=== PATIENT | female | born 1950 | race Caucasian/White ===

== ENCOUNTER 2018-01-09 16:00 | Emergency (ER) | payer MEDICARE, SELFPAY ==
[2018-01-09 16:01] VITALS: BP 135/74; PULSE 85; RESP 16; TEMP 36.6; O2SAT 97; BMI 34.1
--- NOTE | 2018-01-09 16:14 | EKG12_ITS ---
Test Reason : DIZZNESS Blood Pressure : / mmHG Vent. Rate : 076 BPM Atrial Rate : 076 BPM P-R Int : 166 ms QRS Dur : 074 ms QT Int : 388 ms P-R-T Axes : 032 000 009 degrees QTc Int : 436 ms Normal sinus rhythm Inferior infarct , age undetermined , cannot be excluded Abnormal ECG Confirmed by BASIL DUBOSE, JARED ([id number]), design editor PAIGE QUINTANA ([id number] on 01/11/2018 1:35:19 PM Referred By: SILAS Confirmed By:JARED GRACIA MD
[2018-01-09] MEDS: Ondansetron 4 MG/2 ML Vial IV (16:40)
[2018-01-09] MEDS: diazePAM 5 MG Tablet 2.5 MG PO (16:40)
[2018-01-09 16:44] LABS: Absolute Lymphocyte Count 1.07 X10^3/ul (0.83-4.51); Basophil# 0.09 X10^3/uL; Basophil% 0.8 % (0-1); Eosinophil# 0.11 X10^3/uL; Hematocrit 40.9 % (37-47); Hemoglobin 13.9 g/dl (12.0-15.0); Lymphocyte # 1.07 X10^3/ul (4.0); Lymphocyte % 10.1 % (19-41); Mean Corpuscular Hgb 31.2 pg (27.0-32.0); Mean Corpuscular Volume 91.9 fL (81-99); Mean Platelet Vol. 10.9 fl (6.2-12.0); Monocyte# 0.35 X10^3/uL; Monocyte% 3.3 % (0-10); Neutrophil # 8.97 X10^3/uL (2.7-7.7); Neutrophil % 84.5 % (47-70); POSITIVE COUNT NO; POSITIVE DIFFERENTIAL NO; POSITIVE MORPHOLOGY NO; Platelet Count 398 K/mm3 (150-450); RBC Distribution Width CV 12.8 % (11.6-14.6); RBC Distribution Width SD 42.5 fl (35.1-43.9); Red Blood Count 4.45 M/mm3 (4.2-5.4); White Blood Count 10.6 K/mm3 (4.4-11.0)
[2018-01-09 16:56] LABS: Anion Gap 5 (5-15); BUN 25 mg/dL (7-18); Calcium,Total 9.1 mg/dL (8.5-10.1); Chloride 104 mmol/L (98-107); Creatinine, Serum 1.19 mg/dL (0.55-1.02); EST Glomerular Filtration Rate 48 mL/min (>60); Est Glom Filt Rate - Afr Amer 58 mL/min (>60); Estimated Creatinine Clearance 38.53 ml/min; Glucose 112 mg/dL (74-106); Potassium 4.3 mmol/L (3.5-5.1); Sodium Level 138 mmol/L (136-145)
--- NOTE | 2018-01-09 17:36 | ED.VISSUMM ---
- ER Visit Summary Date of Service: 01/09/18 Chief Complaint: Dizzy, vomiting History of Present Illness: The patient is a 67 F who states she woke this morning and had dizziness while still lying in bed. Symptoms were worse with turning her head to the left. She denies headache or palpitations. She has had some nausea with mild vomiting this afternoon. Physical Examination: Vital signs unremarkable. Patient sitting upright in bed no acute distress. Head neck examination unremarkable. Heart is regular rate and rhythm. Lung sounds are clear. Abdomen is soft nontender. Neuro exam reveals good strength and sensation throughout. Test Results: EKG is sinus at [address] change. CBC is unremarkable. Chemistry studies reveal BUN 25 and creatinine 1.19, slightly above her normal. Emergency Department Course and Treatment: Patient given IV fluids, Zofran, and p.o. Valium. On repeat evaluation she is significantly improved. I believe patient's symptoms are secondary to benign positional vertigo. She will be given prescriptions for Zofran and Valium. She will also be given a handout on how to do Kavita maneuvers. Treatment Plan: [] Disposition: Discharge Impression: BPV, improved This note was generated with [employer] dictation software. It may contain incorrect words, spelling, and punctuation that were not noted in review of the chart prior to signing ED Disposition - Plan for ED Patient: Chief Complaint: Dizziness Referrals: Bo Nicholas MD [Primary Care Provider] -
--- NOTE | 2018-01-09 17:37 | ED.DEP ---
ED Disposition - Plan for ED Patient: Disposition: Home or Assisted Living Chief Complaint: Dizziness Instructions: ED BPV Vertigo Prescriptions: Ondansetron [Zofran Odt] 4 mg PO Q8H PRN PRN #10 tablet PRN Reason: Nausea Diazepam [Valium] 2 mg PO TID PRN PRN #10 tablet PRN Reason: Vertigo Referrals: Bo Nicholas MD [Primary Care Provider] - 3-5 Days if not improving
[2018-01-09 17:51] VITALS: BP 137/66; PULSE 81; RESP 16; O2SAT 98
== END 2018-01-09 17:52 | disposition home or self-care (01) ==
PROVIDERS: Emergency Provider Emergency Medicine; Family Provider Family Medicine; PCP Family Medicine
DX: H81.12 Benign paroxysmal vertigo, left ear (principal); K21.9 Gastro-esophageal reflux disease without esophagitis; I10 Essential (primary) hypertension; F32.9 Major depressive disorder, single episode, unspecified; Z85.3 Personal history of malignant neoplasm of breast; Z79.899 Other long term (current) drug therapy
CPT/HCPCS: 80048; 85025; 93005; 96361; 96374; 99285; J7030; J7040; J2405

== ENCOUNTER → 2018-02-17 10:56 | Outpatient (CLI) | payer MEDICARE, SELFPAY ==
[2018-02-17 12:09] LABS: Anion Gap 11 (5-15); BUN 15 mg/dL (7-18); BUN/Creat Ratio 13.6 RATIO (10-20); Calcium,Total 9.3 mg/dL (8.5-10.1); Chloride 106 mmol/L (98-107); Cholesterol 220 mg/dL (200); EST Glomerular Filtration Rate 52 mL/min (>60); Est Glom Filt Rate - Afr Amer 63 mL/min (>60); Glucose 88 mg/dL (74-106); High Density Lipoprotein 58 mg/dL; Potassium 3.8 mmol/L (3.5-5.1); Sodium Level 141 mmol/L (136-145); Triglycerides 129 mg/dL; Very Low Density Lipoprotein 26 mg/dL (5-40)
== END ==
PROVIDERS: Family Provider Family Medicine; PCP Family Medicine; Visit Provider Family Medicine
DX: I10 Essential (primary) hypertension (principal)
CPT/HCPCS: 36415; 80048; 80061

== ENCOUNTER 2018-05-11 07:30 | Emergency (ER) | payer MEDICARE, SELFPAY ==
[2018-05-11 07:31] VITALS: BP 164/73; PULSE 71; RESP 18; TEMP 36.4; O2SAT 95; BMI 33.1
[2018-05-11] MEDS: 0.9% Normal Saline 1,000 ML 150 ML IV (08:08)
[2018-05-11] MEDS: Ondansetron 4 MG/2 ML Vial IV (08:08)
[2018-05-11 08:09] VITALS: RESP 16
[2018-05-11] MEDS: diazePAM 2 MG Tablet 4 MG PO (08:09)
[2018-05-11 08:36] LABS: Absolute Lymphocyte Count 1.16 X10^3/ul (0.83-4.51); Basophil% 1.2 % (0-1); Eosinophil# 0.38 X10^3/uL; Eosinophils% 4.6 % (0-5); Hematocrit 38.2 % (37-47); Hemoglobin 12.4 g/dl (12.0-15.0); Lymphocyte # 1.16 X10^3/ul (4.0); Mean Corp Hgb Conc 32.5 g/gl (32-36); Mean Corpuscular Hgb 30.4 pg (27.0-32.0); Mean Corpuscular Volume 93.6 fL (81-99); Mean Platelet Vol. 10.6 fl (6.2-12.0); Monocyte# 0.64 X10^3/uL; Monocyte% 7.7 % (0-10); Neutrophil # 5.99 X10^3/uL (2.7-7.7); Neutrophil % 72.3 % (47-70); POSITIVE COUNT NO; POSITIVE DIFFERENTIAL NO; POSITIVE MORPHOLOGY NO; Platelet Count 364 K/mm3 (150-450); RBC Distribution Width CV 12.9 % (11.6-14.6); Red Blood Count 4.08 M/mm3 (4.2-5.4); White Blood Count 8.3 K/mm3 (4.4-11.0)
[2018-05-11 08:49] LABS: Anion Gap 8 (5-15); BUN 16 mg/dL (7-18); BUN/Creat Ratio 15.5 RATIO (10-20); Calcium,Total 8.6 mg/dL (8.5-10.1); Chloride 106 mmol/L (98-107); Creatinine, Serum 1.03 mg/dL (0.55-1.02); EST Glomerular Filtration Rate 56 mL/min (>60); Est Glom Filt Rate - Afr Amer 68 mL/min (>60); Estimated Creatinine Clearance 44.51 ml/min; Glucose 101 mg/dL (74-106); Potassium 3.9 mmol/L (3.5-5.1); Sodium Level 143 mmol/L (136-145)
--- NOTE | 2018-05-11 08:55 | CT_ITS ---
STUDY: CT BRAIN WITHOUT CONTRAST REASON FOR EXAM: Female, 67 years old. Vertigo. RADIATION DOSAGE (If Supplied By Facility): CTDIvol = ( 60.81 ) mGy, DLP = ( 1089.89 ) mGycm TECHNIQUE: Transaxial CT imaging of the brain was performed without administration of intravenous contrast material. Individualized dose optimization techniques were used for this CT. COMPARISON: None. FINDINGS: Normal soft tissue structures. Normal calvarium. There is mild cerebral atrophy with widening of the extra-axial spaces and ventricular dilatation. There are areas of decreased attenuation within the white matter tracts of the supratentorial brain, consistent with microvascular disease changes. Normal basal ganglia and thalami. Normal brainstem. Normal cerebellum. There is no intracranial hemorrhage. There are no findings of an acute ischemic infarction. Atherosclerotic calcification of the cavernous portions of the internal carotid arteries bilaterally. Mucosal thickening of the ethmoid sinuses bilaterally. Minimal mucosal thickening of the maxillary sinus bilaterally. CT/Brain/Head without Contrast IMPRESSION: Chronic involutional changes of the brain. Electronically Signed: Gordo Clay MD at 9:30 EST Tel [phone], Service support ,
--- NOTE | 2018-05-11 09:45 | ED.VISSUMM ---
- ER Visit Summary Date of Service: 05/11/18 Chief Complaint: [Dizziness] History of Present Illness: The patient is a 67 F [presents the emergency department complaint of feeling dizzy started this morning about an hour ago. Patient states that she had been up for the day when she bent over to pick something up off the floor and had sudden onset of spinning sensation. Patient felt nauseated but did not vomit. Patient has had similar symptoms in the past earlier this year was seen in the emergency department in January. Patient states that last time he took about a week for symptoms to resolve. Patient denies any focal weakness. She denies any paresthesias. She denies any falls or head injuries. She denies recent illness. Patient states that turning her head makes her symptoms worse. Patient does have a history remote of breast cancer that was treated in 1991 as well as in 2014. Patient has history of hypertension.] Physical Examination: [HEENT-PERRLA, EOMI. Cranial nerves II through XII grossly intact. TMs clear. Mucous membranes moist. No adenopathy. Cardiovascular-regular rate and rhythm without murmur or ectopy Lungs-clear to auscultation, chest wall stable without crepitus or subcu emphysema Abdomen-normoactive bowel sounds, soft, nontender, no rebound or rigidity, no peritoneal signs. Neuro muhr-cupmrl-wbnm and heel sharif testing within normal limits, negative Romberg, negative pronator drift, fundi benign. I did perform Hallpike maneuver on patient she had nystagmus with head turn to the right. The nystagmus was fatigable. Extremities-intact ?4, normal range of motion, normal pulses, atraumatic] Test Results: [CBC with differential is normal. Chemistries unremarkable. CT scan of the brain without contrast showed chronic involutional changes otherwise nothing acute.] Emergency Department Course and Treatment: [Patient was medicated with Zofran and p.o. Valium and had good improvement in her symptomatology. Patient was able to ambulate in the department. Patient would prefer to go home and follow-up with her primary care physician.] Treatment Plan: [Patient will be given a prescription for Zofran and Valium. Patient advised to follow-up with primary care physician within next 3-5 days.] Disposition: [Discharged home in stable condition] Impression: [Vertigo-suspect benign positional] This note was generated with Dragon dictation software. It may contain incorrect words, spelling, and punctuation that were not noted in review of the chart prior to signing ED Disposition - Plan for ED Patient: Chief Complaint: Dizziness Referrals: Bo Nicholas MD [Primary Care Provider] -
--- NOTE | 2018-05-11 09:48 | ED.DCSUM_ITS ---
- ER Visit Summary Date of Service: 05/11/18 Chief Complaint: [Dizziness] History of Present Illness: The patient is a 67 F [presents the emergency department complaint of feeling dizzy started this morning about an hour ago. Patient states that she had been up for the day when she bent over to pick something up off the floor and had sudden onset of spinning sensation. Patient felt nauseated but did not vomit. Patient has had similar symptoms in the past earlier this year was seen in the emergency department in January. Patient states that last time he took about a week for symptoms to resolve. Patient denies any focal weakness. She denies any paresthesias. She denies any falls or head injuries. She denies recent illness. Patient states that turning her head makes her symptoms worse. Patient does have a history remote of breast cancer that was treated in 1991 as well as in 2014. Patient has history of hypertension.] Physical Examination: [HEENT-PERRLA, EOMI. Cranial nerves II through XII grossly intact. TMs clear. Mucous membranes moist. No adenopathy. Cardiovascular-regular rate and rhythm without murmur or ectopy Lungs-clear to auscultation, chest wall stable without crepitus or subcu emphysema Abdomen-normoactive bowel sounds, soft, nontender, no rebound or rigidity, no peritoneal signs. Neuro ccec-doellf-rptn and heel sharif testing within normal limits, negative Romberg, negative pronator drift, fundi benign. I did perform Hallpike maneuver on patient she had nystagmus with head turn to the right. The nystagmus was fatigable. Extremities-intact ?4, normal range of motion, normal pulses, atraumatic] Test Results: [CBC with differential is normal. Chemistries unremarkable. CT scan of the brain without contrast showed chronic involutional changes otherwise nothing acute.] Emergency Department Course and Treatment: [Patient was medicated with Zofran and p.o. Valium and had good improvement in her symptomatology. Patient was able to ambulate in the department. Patient would prefer to go home and follow- up with her primary care physician.] Treatment Plan: [Patient will be given a prescription for Zofran and Valium. Patient advised to follow-up with primary care physician within next 3-5 days.] Disposition: [Discharged home in stable condition] Impression: [Vertigo-suspect benign positional] This note was generated with Dragon dictation software. It may contain incorrect words, spelling, and punctuation that were not noted in review of the chart prior to signing ED Disposition - Plan for ED Patient: Chief Complaint: Dizziness Referrals: Bo Nicholas MD [Primary Care Provider] -
--- NOTE | 2018-05-11 09:48 | ED.DEP ---
ED Disposition - Plan for ED Patient: Chief Complaint: Dizziness Instructions: ED BPV Vertigo Prescriptions: Ondansetron [Zofran Odt] 4 mg PO Q8H PRN PRN #10 tab PRN Reason: Nausea Diazepam [Valium] 2 mg PO TID PRN PRN #20 tab PRN Reason: Vertigo Referrals: Bo Nicholas MD [Primary Care Provider] - 3-5 Days
[2018-05-11 10:12] VITALS: RESP 18
== END 2018-05-11 10:13 | disposition home or self-care (01) ==
PROVIDERS: Emergency Provider Emergency Medicine; Family Provider Family Medicine; PCP Family Medicine
DX: R42 Dizziness and giddiness (principal); Z85.3 Personal history of malignant neoplasm of breast; I10 Essential (primary) hypertension; Z79.899 Other long term (current) drug therapy
CPT/HCPCS: 70450; 80048; 85025; 96361; 96374; 99285; J7030; A4216; J2405

== ENCOUNTER → 2018-11-25 | Outpatient (CLI) | payer MEDICARE, SELFPAY ==
--- NOTE | 2018-11-25 09:36 | RAD_ITS ---
STUDY: X-RAY - LEFT KNEE REASON FOR EXAM: Female, 68 years old. Arthritis TECHNIQUE: 4 view(s) of the knee. COMPARISON: Report of previous study of 06/30/2012 FINDINGS: Normal visualized distal femur. Normal visualized proximal tibia and fibula. Normal proximal tibiofibular articulation. Normal medial femorotibial compartment. There is mild degenerative arthrosis of the lateral femorotibial compartment. There is mild degenerative arthrosis of the patellofemoral articulation. The soft tissue structures are unremarkable. RAD/Knee 4 or More Views IMPRESSION: Mild degenerative changes of the lateral and patellofemoral compartments. Electronically Signed: Puma Linares MD at 17:09 EDT , Service support ,
--- NOTE | 2018-11-25 09:36 | RAD_ITS ---
STUDY: X-RAY - RIGHT KNEE REASON FOR EXAM: Female, 68 years old. Arthritis TECHNIQUE: 4 view(s) of the knee. COMPARISON: Report of prior study of 06/30/2012 FINDINGS: Normal visualized distal femur. Normal visualized proximal tibia and fibula. Normal proximal tibiofibular articulation. There is mild degenerative arthrosis of the medial femorotibial compartment. There is moderate degenerative arthrosis of the lateral femorotibial compartment with moderate joint space narrowing. Normal patellofemoral articulation. The soft tissue structures are unremarkable. RAD/Knee 4 or More Views IMPRESSION: Degenerative arthrosis. Electronically Signed: Puma Linares MD at 17:15 EDT , Service support ,
[2018-11-25 12:20] LABS: ALB/GLOB Ratio 0.9 RATIO (0.9-2.4); AST(SGOT) 21 U/L (15-37); Alanine Aminotransfer ALT/SGPT 28 U/L (13-56); Albumin, Serum 3.5 g/dL (3.2-5.0); Alkaline Phosphatase 96 U/L (45-117); Anion Gap 7 (5-15); BUN 20 mg/dL (7-18); BUN/Creat Ratio 20.6 RATIO (10-20); Calcium,Total 9.1 mg/dL (8.5-10.1); Chloride 105 mmol/L (98-107); Creatinine, Serum 0.97 mg/dL (0.55-1.02); EST Glomerular Filtration Rate 60 mL/min (>60); Est Glom Filt Rate - Afr Amer 73 mL/min (>60); Globulin 3.9 g/dL (2.2-4.2); Glucose 81 mg/dL (74-106); Potassium 4.2 mmol/L (3.5-5.1); Protein, Total 7.4 g/dL (6.4-8.2); Rheumatoid Factor < 10.0 IU/mL (<15); Sodium Level 141 mmol/L (136-145); Uric Acid 6.9 mg/dL (2.6-6.0)
[2018-11-25 12:34] LABS: Absolute Lymphocyte Count 1.66 X10^3/ul (0.83-4.51); Basophil# 0.08 X10^3/uL; Eosinophil# 0.44 X10^3/uL; Eosinophils% 5.8 % (0-5); Hematocrit 41.1 % (37-47); Hemoglobin 13.6 g/dl (12.0-15.0); Lymphocyte # 1.66 X10^3/ul (4.0); Lymphocyte % 21.7 % (19-41); Mean Corp Hgb Conc 33.1 g/gl (32-36); Mean Corpuscular Hgb 30.4 pg (27.0-32.0); Mean Corpuscular Volume 91.9 fL (81-99); Mean Platelet Vol. 11.5 fl (6.2-12.0); Monocyte# 0.41 X10^3/uL; Monocyte% 5.4 % (0-10); Neutrophil # 5.04 X10^3/uL (2.7-7.7); Platelet Count 377 K/mm3 (150-450); RBC Distribution Width CV 13.1 % (11.6-14.6); RBC Distribution Width SD 43.5 fl (35.1-43.9); Red Blood Count 4.47 M/mm3 (4.2-5.4); White Blood Count 7.6 K/mm3 (4.4-11.0)
[2018-11-25 12:54] LABS: POSITIVE COUNT NO; POSITIVE DIFFERENTIAL NO; POSITIVE MORPHOLOGY NO
[2018-11-25 13:13] LABS: Erythrocyte Sedimentation Rate 18 mm/hr (0-30)
[2018-11-26 14:42] LABS: ANTINUCLEAR ANTIBODIES DIRECT Positive (Negative)
[2018-12-01 13:07] LABS: Anti-Centromere B Ab <0.2 AI (0.0-0.9); Anti-Chromatin <0.2 AI (0.0-0.9); Anti-Jo <0.2 AI (0.0-0.9); Anti-Scleroderma-70 AB <0.2 AI (0.0-0.9); RNP Ab <0.2 AI (0.0-0.9); SJOGREN'S Anti-SS-A test < 0.2 AI (0.0-0.9); SJOGREN'S Anti-SS-B test 1.7 AI (0.0-0.9); Smith Ab <0.2 AI (0.0-0.9)
[2018-12-01 13:25] LABS: Anti-dsDNA Ab 1 IU/mL (0-9)
== END | disposition home or self-care (01) ==
PROVIDERS: Family Provider Family Medicine; PCP Family Medicine; Referring Provider Family Medicine; Visit Provider Family Medicine
DX: M17.0 Bilateral primary osteoarthritis of knee (principal)
CPT/HCPCS: 36415; 73564; 80053; 84550; 85025; 85652; 86038; 86140; 86225; 86235; 86431

== ENCOUNTER → 2020-07-11 08:54 | Outpatient (CLI) | payer MEDICARE, SELFPAY ==
[2020-07-11 10:27] LABS: Absolute Lymphocyte Count 1.39 X10^3/uL (0.83-4.51); Absolute Neutrophil Count 6.2 X10^3/uL (2.0-7.7); Basophil# 0.13 X10^3/uL; Basophil% 1.5 % (0-1); Eosinophil# 0.47 X10^3/uL; Eosinophils% 5.4 % (0-5); Hematocrit 43.9 % (37-47); Hemoglobin 14.2 g/dL (12.0-15.0); Lymphocyte # 1.39 X10^3/ul (4.0); Lymphocyte % 15.9 % (19-41); Mean Corp Hgb Conc 32.3 g/dL (32-36); Mean Corpuscular Hgb 30.3 pg (27.0-32.0); Mean Corpuscular Volume 93.8 fL (81-99); Mean Platelet Vol. 11.7 fl (6.2-12.0); Monocyte# 0.51 X10^3/uL; Monocyte% 5.8 % (0-10); NRBC Flagged by Analyzer 0 % (0-5); Neutrophil # 6.18 X10^3/uL (2.7-7.7); Neutrophil % 70.9 % (47-70); Platelet Count 423 K/mm3 (150-450); RBC Distribution Width CV 12.9 % (11.6-14.6); RBC Distribution Width SD 44.3 fl (35.1-43.9); Red Blood Count 4.68 M/mm3 (4.2-5.4); White Blood Count 8.7 K/mm3 (4.4-11.0)
[2020-07-11 11:31] LABS: AST(SGOT) 28 U/L (15-37); Alanine Aminotransfer ALT/SGPT 37 U/L (13-56); Albumin, Serum 3.7 g/dL (3.2-5.0); Alkaline Phosphatase 105 U/L (45-117); Anion Gap 7 (5-15); BUN 21 mg/dL (7-18); BUN/Creat Ratio 19.6 RATIO (10-20); Calcium,Total 9.6 mg/dL (8.5-10.1); Chloride 107 mmol/L (98-107); Cholesterol 270 mg/dL (200); Creatinine, Serum 1.07 mg/dL (0.55-1.02); EST Glomerular Filtration Rate 54 mL/min (>60); Est Glom Filt Rate - Afr Amer 65 mL/min (>60); Globulin 3.8 g/dL (2.2-4.2); Glucose 101 mg/dL (74-106); High Density Lipoprotein 59 mg/dL; Potassium 4.3 mmol/L (3.5-5.1); Protein, Total 7.5 g/dL (6.4-8.2); Sodium Level 138 mmol/L (136-145); Uric Acid 6.9 mg/dL (2.6-6.0)
[2020-07-11 11:33] LABS: Microalbumin,Random Urine 71.2 mg/L (NO RANGE EST.); Microalbumin:Creatinine Ratio 17.8 mg/g CRE (<30 mg/g CRE)
== END ==
PROVIDERS: PCP Family Medicine; Referring Provider Family Medicine; Visit Provider Family Medicine
DX: I10 Essential (primary) hypertension (principal); E79.0 Hyperuricemia without signs of inflammatory arthritis and tophaceous disease; G56.31 Lesion of radial nerve, right upper limb
CPT/HCPCS: 36415; 80053; 82043; 82465; 82570; 83718; 84550; 85025

== ENCOUNTER → 2020-07-20 17:10 | Outpatient (CLI) | payer MEDICARE, SELFPAY ==
--- NOTE | 2020-07-20 17:20 | MRI_ITS ---
STUDY: MRI BRAIN WITH AND WITHOUT CONTRAST REASON FOR EXAM: Female, 69 years old. LEFT hand weakness since April 2020, Hx of breast CA TECHNIQUE: Standardized multiplanar fat and water weighted pulse sequences were obtained. IV 19 Dotarem was administered for the contrast portion of the examination. COMPARISON: 11 May 2018 FINDINGS: Normal size of the ventricles and extra-axial spaces for the patient''s age. There is mild to moderate predominantly periventricular and deep white matter gliosis, most confluent and largest region in the deep right parietal lobe and bilateral small isolated frontal foci. Normal bilateral basal ganglia. Normal thalami. There is no extra-axial fluid accumulation. Normal flow voids within the major intracranial circulation suggesting patency by spin echo criteria. Normal venous enhancement. There is no enhancing intra-axial or extra-axial abnormality. Normal sella turcica, pituitary gland, infundibular stalk, optic chiasm and hypothalamus. Normal tectal plate and pineal gland. Normal midbrain, elmira and medulla. Normal cerebellum. Normal basal cisterns. Normal bilateral temporal bones. Normal bilateral internal auditory canals. No demonstrated orbital abnormality, within the constraints of a routine brain study. Normal visualized paranasal sinuses. Normal calvarium and skull base. Normal visualized soft tissue structures. Normal visualized upper cervical spine. There is a small right mastoid effusion. MRI/Brain W/WO Contrast IMPRESSION: 1. No acute findings. 2. No intracranial neoplastic disease. 3. Mild to moderate nonspecific white matter gliosis, this is associated with any systemic condition and is most common due to atherosclerosis. Electronically Signed: Florence Staples MD at 18:29 EST Tel , Service support ,
== END ==
PROVIDERS: PCP Family Medicine; Referring Provider Family Medicine; Visit Provider Family Medicine
DX: R29.898 Other symptoms and signs involving the musculoskeletal system (principal)
CPT/HCPCS: 70553; A9575

== ENCOUNTER 2020-08-01 11:23 | Outpatient (RCR) | payer MEDICARE, SELFPAY | END 2020-08-01 23:59 | LOC: IMMUN 11:23 | PROVIDERS: PCP Family Medicine; Visit Provider Family Medicine | DX: Z23 Encounter for immunization (principal) | CPT/HCPCS: 0011A; 0012A; 91301 ==

== ENCOUNTER → 2020-08-29 14:13 | Outpatient (CLI) | payer MEDICARE, SELFPAY ==
--- NOTE | 2020-08-29 15:47 | NEURO ---
NCS and/or EMG Patient Report Ordering Doctor: Bo Nicholas DATE OF SERVICE: 08/29/20 Natalia Leigh presents for electrodiagnostic study of the left upper limb. She reports weakness in the left hand and pain in the left forearm that began about 4 months ago. Electrodiagnostic findings: Left median motor nerve demonstrates normal distal latency, amplitude and conduction velocity. Left ulnar motor response is within normal limits, including conduction across the elbow. The left radial motor response demonstrates a decreased amplitude. Normal median and ulnar F waves. Sensory responses are within normal limits. On needle EMG, 1+ fibrillations are noted in the extensor pollicis longus, extensor indicis with decreased recruitment pattern. There is no denervation noted in the triceps. No denervation noted in the cervical paraspinals. Electrodiagnostic impression: This is an abnormal study in the left upper limb. 1. 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 This is evidenced by decreased radial motor amplitude and denervation of muscles in the forearm. The lesion is likely below the level of the triceps which are intact. Consider repeat electrodiagnostic study in 4 to 6 months for reevaluation following a possible course of physical therapy. 2. There is no electrodiagnostic evidence for median neuropathy, including carpal tunnel syndrome. 3. No electrodiagnostic evidence for cervical radiculopathy. If there are any further questions, please do not hesitate to contact me.
== END ==
PROVIDERS: PCP Family Medicine; Referring Provider Family Medicine; Visit Provider Family Medicine
DX: G56.32 Lesion of radial nerve, left upper limb (principal)
CPT/HCPCS: 95886; 95909; 95910

== ENCOUNTER → 2020-09-06 08:43 | Outpatient (CLI) | payer MEDICARE, SELFPAY ==
[2020-09-06 10:18] LABS: Erythrocyte Sedimentation Rate 14 mm/hr (0-30)
[2020-09-06 10:22] LABS: Hemoglobin A1c 5.2 % (3.8-5.6)
[2020-09-06 10:29] LABS: Vitamin B12 390 pg/mL (211-911)
[2020-09-06 11:00] LABS: CRP 4.42 mg/L (0.0-3.0); Cholesterol 212 mg/dL (200); Glucose 97 mg/dL (74-106); High Density Lipoprotein 52 mg/dL; Thyroid Stim Hormone (TSH) 1.45 uIU/mL (0.358-3.74); Triglycerides 209 mg/dL; Very Low Density Lipoprotein 42 mg/dL (5-40)
[2020-09-07 16:08] LABS: ANTINUCLEAR ANTIBODIES DIRECT Positive (Negative); Anti-Centromere B Ab <0.2 AI (0.0-0.9); Anti-Chromatin <0.2 AI (0.0-0.9); Anti-Jo <0.2 AI (0.0-0.9); Anti-Scleroderma-70 AB <0.2 AI (0.0-0.9); RNP Ab <0.2 AI (0.0-0.9); SJOGREN'S Anti-SS-A test < 0.2 AI (0.0-0.9); Smith Ab <0.2 AI (0.0-0.9)
[2020-09-07 16:19] LABS: Anti-dsDNA Ab 1 IU/mL (0-9)
== END ==
PROVIDERS: PCP Family Medicine; Referring Provider Psychiatry & Neurology Neurology; Visit Provider Psychiatry & Neurology Neurology
DX: G62.9 Polyneuropathy, unspecified (principal); I10 Essential (primary) hypertension; R73.9 Hyperglycemia, unspecified
CPT/HCPCS: 36415; 80061; 82607; 82746; 82947; 83036; 84443; 85652; 86038; 86140; 86225; 86235

== ENCOUNTER → 2020-09-19 10:08 | Outpatient (CLI) | payer MEDICARE, SELFPAY ==
--- NOTE | 2020-09-19 10:09 | MRI_ITS ---
STUDY: MRI UPPER EXTREMITY LEFT FOREARM REASON FOR EXAM: Female, 69 years old. left posterior interosseous neuropathy -- assess for entrapment in forearm (arcade of Frohse TECHNIQUE: Standardized fat and water weighted pulse sequences were obtained in all 3 orthogonal planes. COMPARISON: None. FINDINGS: Mild edema at the flexor compartment near the wrist (axial image 40 series 11). Flexor tendons intact. Mild common flexor muscle edema (axial image 4 series 11). Mild extensor digitorum muscle edema (axial image 11 series 11). No supinator muscle atrophy. No pronator muscle atrophy. Normal cubital tunnel and ulnar nerve. Normal biceps tendon insertion. Normal brachialis tendon insertion. Normal subcutis adipose space, without subcutis adipose space edema. No solid, cystic or lipomatous mass lesion. Normal interosseous membrane. Normal radius and ulna, without a periosteal, cortical, or cancellous marrow abnormality. MRI/Upper Ext/No Jt/ wo IMPRESSION: Mild flexor tenosynovitis without tendon tear Mild nonspecific common flexor and extensor digitorum muscle edema No supinator or pronator muscle atrophy No solid, cystic or lipomatous lesions Consider EMG correlation Electronically Signed: Bo Conner DO at 8:51 EDT Tel , Service support ,
== END ==
PROVIDERS: PCP Family Medicine; Referring Provider Psychiatry & Neurology Neurology; Visit Provider Psychiatry & Neurology Neurology
DX: G62.9 Polyneuropathy, unspecified (principal)
CPT/HCPCS: 73218

== ENCOUNTER → 2020-11-07 13:59 | Outpatient (CLI) | payer MEDICARE, SELFPAY ==
[2020-10-16 13:10] VITALS: BMI 33.1
[2020-11-07 17:38] LABS: Absolute Lymphocyte Count 1.79 X10^3/uL (0.83-4.51); Absolute Neutrophil Count 5.4 X10^3/uL (2.0-7.7); Basophil# 0.08 X10^3/uL; Basophil% 0.9 % (0-1); Eosinophil# 0.98 X10^3/uL; Eosinophils% 11.2 % (0-5); Hematocrit 42.6 % (37-47); Hemoglobin 13.6 g/dL (12.0-15.0); Lymphocyte # 1.79 X10^3/ul (0.83-4.51); Lymphocyte % 20.5 % (19-41); Mean Corp Hgb Conc 31.9 g/dL (32-36); Mean Corpuscular Hgb 30.2 pg (27.0-32.0); Mean Corpuscular Volume 94.5 fL (81-99); Mean Platelet Vol. 11.9 fl (6.2-12.0); Monocyte# 0.48 X10^3/uL; Monocyte% 5.5 % (0-10); NRBC Flagged by Analyzer 0 % (0-5); Neutrophil # 5.36 X10^3/uL (2.7-7.7); Neutrophil % 61.6 % (47-70); Platelet Count 430 K/mm3 (150-450); RBC Distribution Width CV 12.9 % (11.6-14.6); Red Blood Count 4.51 M/mm3 (4.2-5.4); White Blood Count 8.7 K/mm3 (4.4-11.0)
[2020-11-07 18:16] LABS: Erythrocyte Sedimentation Rate 11 mm/hr (0-30)
== END ==
PROVIDERS: PCP Family Medicine; Referring Provider Family Medicine; Visit Provider Family Medicine
DX: R51.9 Headache, unspecified (principal)
CPT/HCPCS: 36415; 85025; 85652

== ENCOUNTER 2021-02-12 09:30 | Outpatient (RCR) | payer MEDICARE, SELFPAY ==
[2020-11-26 13:14] VITALS: BMI 33.1
--- NOTE | 2020-12-18 13:18 | HP.PTEVAL_ITS ---
Patient's Visit Information GILBERTO CAMPBELL is a 70 year old F referred to Physical Therapy by Dr. Ronnie Knott MD with a diagnosis of Lesion of radial L upper limb/proximal forearm. Date of Evaluation: 12/18/20 Physical Therapist: CARIN Vega - Visit Plan Frequency: 2-3x /Week Duration: 4-6 Weeks Plan: 2X/ week for 4-6 weeks for L wrist and fingers and thumb PROM/AROM, strengthening, light stretching, Neuro re-ed with FES while doing manual therapy or exercises to encourage strength with HEP. Pt may benefit from a night time resting splint as she is getting cramping in her L ring and middle finger at times as well. - Subjective Last Thanksgiving she started with some tenderness in the forearm and losing gripping function in the hand and it was getting worse cause she could not extend her fingers. She can push her fingers up but cant hold them there. She has to take care with a knife. She used to be able not to flatten her hand to wash her hair. She does not have pain just tenderness, cramps and weakness. She gets cramps mostly at night. It was hard for her to clip her nails and file them last night. She is right handed. She saw saw a specialist for this and Dr Nicholas had a brain scan done and it was normal. She had nerve conduction test and she has had prednizone and anti-inflamm for several months now. There was no injury to the elbow but they think that her nerves are getting impingement. Last resort is surgery. It does not wake her up at night. - Objective Observation: ring and middle finger do not move into extension. PROM of wrist... pt has decreased ROM and tightness. Pt has decreased no AROM of ring and middle finger on the L. R handed: R radiation safety officer strength 45# L radiation safety officer strength 16#. R pincher radiation safety officer strength 2# and L pincher radiation safety officer 0#. R wris t extension 60 degrees L 5 degrees. R wrist flexion 55 degrees L 75 degrees. Decreased L thumb extension, able to ab/add the fingers. R tricep 4+/5 and L tricep 4/5. B bicep 4+/5. Pt has increase tightness with middle and ring finger on the L into extension and with stretching into wrist ext. - Goals Goal 1:: I HEP Goal Time Frame: 4-6 Weeks Goal 2:: Increase ROM of L wrist extension by 10 degrees (at time of eval L wrist ext was 5 degrees) Goal Time Frame: 4-6 Weeks Goal 3:: Be able to have L ring and middle finger extension to the neutral. Goal Time Frame: 4-6 Weeks Goal 5:: Increase L radiation safety officer strength by 5# (at time of eval L radiation safety officer strength was 16#). - Rehabilitation Potential Rehabilitation Potential: Good - Anticipated Interventions Patient/Client Instruction: Educate patient on: Condition, Plan of Care For the Purpose of:: To decrease pain, To increase ROM, To improve nutrient d elivery to tissue, To improve muscle performance and motor function, To improve ability to perform ADL's, To improve performance and independence with ADL's, To improve ability of physical actions for home/community/work/leisure, To improve health of tissue, To decrease soft tissue restriction, To increase flexibility/ROM Therapeutic Exercise to Include: Strength training, Neuromotor development, Passive ROM, Active ROM For the Purpose of:: To increase ROM, To improve nutrient delivery to tissue, To improve muscle performance and motor function, To improve ability to perform ADL's, To increase tolerance to activity/condition/position, To improve performance and independence with ADL's, To improve health of tissue, To decrease soft tissue restriction, To increase flexibility/ROM, To improve safety, To improve health and function Manual Therapy Techniques to Include: Passive ROM, Soft tissue mobilization For the Purpose of:: To increase ROM, To improve nutrient delivery to tissue, To improve muscle performance and motor function, To increase tolerance to activity/condition/position, To improve health of tissue, To decrease soft tissue restriction, To increase flexibility/ROM, To improve self management, To prevent re-injury Functional electric stimulation: Yes - in conjunction with ther-ex or NM re-edu For the Purpose of:: To increase ROM Thank you for the opportunity to evaluate your patient. For Medicare and Medicare HMO plans, please review the plan of care and approve it. It will need to be FAXED BACK to us at [phone] for Medicare purposes. For Medicare only, by signing this I certify the plan of care. Please let me know if there are questions or concerns regarding this plan of care. Physician Signature: Date:
--- NOTE | 2021-01-15 08:06 | HP.OTEVAL ---
Patient's Visit Information GILBERTO CAMPBELL is a 70 year old F, referred to Occupational Therapy by Dr. Ronnie Knott MD, with a diagnosis of lesion of radial nerve left UE. Date of Evaluation: 01/10/21 Occupational Therapist: Aranza Wall, OTR/Sandie, CHT - Subjective This 70 year old female was seen for OT eval with dx of Radial N lesion- pt states 2019 she began having difficulty with weakness of left UE. pt is right handed. pt states she noticed weakness majority of the time. Last Thanks she started with some tenderness in the forearm and losing gripping function in the hand and it was getting worse cause she could not extend her fingers. She can push her fingers up but cant hold them there. She has to take care with a knife. She used to be able not to flatten her hand to wash her hair. She does not have pain just tenderness, cramps and weakness. She gets cramps mostly at night. It was hard for her to clip her nails and file them last night. She is right handed. She saw saw a specialist for this and Dr Nicholas had a brain scan done and it was normal. She had nerve conduction test and she has had prednisone and anti-inflammatory for several months now. There was no injury to the elbow but they think that her nerves are getting impingement. Last resort is surgery. It does not wake her up at night. - ROM Wrist: right 75/65 left 50/45 MP: MF -35, RF -30 ROM Comments: pt demo weak PAD/DAB. limited intrisic. pt demo with limited MCP ext. - Strength Compensation And Benefits Manager: right 45# left 12# Lateral Pinch: right 4# left unable Tripod Pinch: right 6# left unable Tip-to-Tip Pinch: right 6# left unable Strength Comments: pt demo with weakness of left superintendent sales/pinch strength - Sensation Sensation Comments: denies - Quick DASH-Disab of Arm,Shoulder& Hand Quick DASH Score: 20.4525 - Goals Goal:: pt will demo a increase in left Compensation And Benefits Manager by 25# or greater to increase pts ind.with ADLS and IADLs by d.c Goal:: Pt will demo a increase in left wrist ROM by 20* to increase ind with ADLs and IADLs by d/c. pt will demo a increase in left MCP digit ext by 30* to increase pts ind. with ADLs and IADLs by d.c - Rehabilitation General Assessment: pt demo with limited ability to extend wrist and MCP in full extension indicating some radial nerve involvement that is limiting her ROM and ind. with ADLs and IADLS. pt would benefit from skilled OT services 1-2x week for 4 weeks to assist pt in returning to a PLOF. Today therapist ed. pt on radial nerve glides, avoidance of prolonged wrist or elbow flexion. pt demo understanding and agree to POC. Rehabilitation Potential: Good - Anticipated Interventions A/AAROM/PROM, Strengthening, Triggerpoint Release, Modalities, Joint Protection/Energy Conservation, Fine Motor Coord/Pal, ADL Training, Education re assistive Equipment - Visit Plan Frequency: 1-2x /Week Duration: 3 Weeks TEXT: Thank you for the opportunity to evaluate your patient. For Medicare and Medicare HMO plans, please review the plan of care and approve it. It will need to be FAXED BACK to us at [phone] for Medicare purposes. Please let me know if there are questions or concerns regarding this plan of care. Physician Signature: Date:
--- NOTE | 2021-06-18 09:42 | HP.OT.NRP ---
GILBERTO CAMPBELL was seen in my office for initial evaluation on 01/10/21. The following Plan of Care was established for this patient: Initial Frequency: 1-2x /Week Initial Duration: 3 Weeks Plan: Referral to specialist, continue HEP Anticipated Interventions: A/AAROM/PROM, Strengthening, Triggerpoint Release, Modalities, Joint Protection/Energy Conservation, Fine Motor Coord/Pal, ADL Training, Education re assistive Equipment This patient was last seen in our office 02/12/21. Pertinent comments regarding their Occupational therapy will appear below: pt was seen for 10 visits with minimal change in symptoms- rec'd pt return to at her last visit 02/12/21. At this point I will be discontinuing this patient from occupational therapy. I would be happy to see this patient again in the future if found appropriate by the physician. Thank you! Aranza Wall, OTR/L, CHT
== END 2021-02-12 19:00 | disposition home or self-care (01) ==
LOC: OT 09:30
PROVIDERS: PCP Family Medicine; Referring Provider Psychiatry & Neurology Neurology; Visit Provider Psychiatry & Neurology Neurology
DX: G56.32 Lesion of radial nerve, left upper limb (principal)
CPT/HCPCS: 97110; 97140; 97161; 97166; 97530

== ENCOUNTER → 2021-03-18 13:52 | Outpatient (CLI) | payer MEDICARE, SELFPAY ==
[2021-03-18 18:13] LABS: AST(SGOT) 46 U/L (15-37); Alanine Aminotransfer ALT/SGPT 70 U/L (13-56); Albumin, Serum 3.7 g/dL (3.2-5.0); Alkaline Phosphatase 115 U/L (45-117); Anion Gap 7 (5-15); BUN 21 mg/dL (7-18); BUN/Creat Ratio 18.8 RATIO (10-20); Chloride 107 mmol/L (98-107); Creatinine, Serum 1.12 mg/dL (0.55-1.02); EST Glomerular Filtration Rate 51 mL/min (>60); Est Glom Filt Rate - Afr Amer 61 mL/min (>60); Globulin 3.8 g/dL (2.2-4.2); Glucose 102 mg/dL (74-106); Potassium 4.6 mmol/L (3.5-5.1); Protein, Total 7.5 g/dL (6.4-8.2); Sodium Level 141 mmol/L (136-145); Thyroid Stim Hormone (TSH) 1.01 uIU/mL (0.358-3.74)
[2021-03-19 09:13] LABS: Hepatitis C Antibody Non-Reactive (Nonreactive)
== END ==
PROVIDERS: PCP Family Medicine; Visit Provider Family Medicine
DX: E66.9 Obesity, unspecified (principal); Z11.59 Encounter for screening for other viral diseases
CPT/HCPCS: 36415; 80053; 84443; 86803

== ENCOUNTER 2021-09-23 09:03 | Outpatient (CLI) | payer MEDICARE, SELFPAY ==
[2021-09-23 12:12] LABS: Absolute Neutrophil Count 5.7 X10^3/uL (2.0-7.7); Basophil% 1.2 % (0-1); Eosinophil# 0.63 X10^3/uL; Eosinophils% 7.5 % (0-5); Hematocrit 40.5 % (37-47); Hemoglobin 13.1 g/dL (12.0-15.0); Lymphocyte % 17.9 % (19-41); Mean Corp Hgb Conc 32.3 g/dL (32-36); Mean Corpuscular Volume 92.7 fL (81-99); Mean Platelet Vol. 11.5 fl (6.2-12.0); Monocyte# 0.49 X10^3/uL; Monocyte% 5.8 % (0-10); NRBC Flagged by Analyzer 0 % (0-5); Neutrophil # 5.65 X10^3/uL (2.7-7.7); Neutrophil % 67.2 % (47-70); Platelet Count 380 K/mm3 (150-450); RBC Distribution Width CV 12.4 % (11.6-14.6); RBC Distribution Width SD 42.7 fl (35.1-43.9); Red Blood Count 4.37 M/mm3 (4.2-5.4); White Blood Count 8.4 K/mm3 (4.4-11.0)
[2021-09-23 13:06] LABS: AST(SGOT) 25 U/L (15-37); Alanine Aminotransfer ALT/SGPT 31 U/L (13-56); Albumin, Serum 3.6 g/dL (3.2-5.0); Alkaline Phosphatase 96 U/L (45-117); Anion Gap 5 (5-15); BUN 19 mg/dL (7-18); BUN/Creat Ratio 18.4 RATIO (10-20); Calcium,Total 9.8 mg/dL (8.5-10.1); Chloride 107 mmol/L (98-107); Cholesterol 242 mg/dL (200); Creatinine, Serum 1.03 mg/dL (0.55-1.02); EST Glomerular Filtration Rate 56 mL/min (>60); Est Glom Filt Rate - Afr Amer 68 mL/min (>60); Globulin 3.6 g/dL (2.2-4.2); Glucose 98 mg/dL (74-106); High Density Lipoprotein 58 mg/dL; Protein, Total 7.2 g/dL (6.4-8.2); Sodium Level 138 mmol/L (136-145); Triglycerides 173 mg/dL; Very Low Density Lipoprotein 35 mg/dL (5-40)
== END 2021-09-23 23:59 | disposition home or self-care (01) ==
LOC: MFPLAB 09:04
PROVIDERS: PCP Family Medicine; Visit Provider Family Medicine
DX: I10 Essential (primary) hypertension (principal)
CPT/HCPCS: 36415; 80053; 80061; 85025

== ENCOUNTER → 2022-04-15 | Outpatient (CLI) | payer MEDICARE, SELFPAY ==
--- NOTE | 2022-04-15 08:58 | BD_ITS ---
STUDY: DUAL ENERGY X-RAY ABSORPTIOMETRY / DXA REASON FOR EXAM: Female, 71 years old. V76.12ScreeningBONE DENSITY REASON FOR EXAM TECHNIQUE: Bone Mineral Density (BMD) measurements of lumbar spine and bilateral hips were obtained. COMPARISON: Comparison is made with prior study dated 01/16/2015. FINDINGS: Lumbar Spine (L1-L4): g/cm2 (0.993) / T-score (-0.2) / Z-score (2.0) Findings are suggestive of normal bone density with a low fracture risk. Left Femur Total: g/cm2 (0.830) / T-score (-0.9) / Z-score (0.8) Left Femoral Neck: g/cm2 (0.553) / T-score (-2.7) / Z-score (-0.7) Right Femur Total: g/cm2 (0.806) / T-score (-1.1) / Z-score (0.6) Right Femoral Neck: g/cm2 (0.626) / T-score (-2.0) / Z-score (0.0) The T-Scores on the most recent prior examination were: Lumbar Spine (L1-L4): There has been worsening of bone density since the previous examination. Left Femur Total: which represents a worsening of 12.3%. Right Femur Total: which represents a worsening of 14.6%. BD/Dexa Bone Density Study IMPRESSION: The patient is considered osteoporotic as outlined below according to World [place] Organization (WHO) criteria with a high fracture risk. There has been worsening of bone density since the previous examination. Reference Information: The T-score is the number of standard deviations above or below the standard which is normal for young adults at their peak bone mineral density. The World Health Organization (WHO) interprets the T-scores as follows: Above -1 Normal bone density Between -1 and -2.5 Osteopenia Equal to / or below -2.5 Osteoporosis As a practical clinical guideline, osteopenia may be graded as follows: Mild -1 through -1.5 Moderate -1.6 through -2.0 Severe -2.1 through -2.4 The Z-score is the number of standard deviations above or below age-matched controls. A Z-score of less than -1.5 would be considered abnormal. References: 1. NIH Osteoporosis and Related Bone Diseases www osteo.org 2. International Society for Clinical Densitometry www iscd.org 3. National Osteoporosis Foundation www nof.org Electronically Signed: Gordo Clay MD at 12:55 EST ,
== END | disposition home or self-care (01) ==
PROVIDERS: PCP Family Medicine; Referring Provider Nurse Practitioner Family; Visit Provider Nurse Practitioner Family
DX: N95.9 Unspecified menopausal and perimenopausal disorder (principal); Z13.820 Encounter for screening for osteoporosis
CPT/HCPCS: 77080

== ENCOUNTER → 2022-07-10 | Outpatient (CLI) | payer MEDICARE, SELFPAY ==
[2022-07-10 12:21] LABS: Absolute Lymphocyte Count 1.43 X10^3/uL (0.83-4.51); Absolute Neutrophil Count 6.4 X10^3/uL (2.0-7.7); Basophil% 1.1 % (0-1); Eosinophil# 0.59 X10^3/uL; Eosinophils% 6.5 % (0-5); Hematocrit 42.6 % (37-47); Hemoglobin 13.8 g/dL (12.0-15.0); Lymphocyte # 1.43 X10^3/ul (0.83-4.51); Lymphocyte % 15.7 % (19-41); Mean Corp Hgb Conc 32.4 g/dL (32-36); Mean Corpuscular Hgb 30.8 pg (27.0-32.0); Mean Corpuscular Volume 95.1 fL (81-99); Mean Platelet Vol. 11.4 fl (6.2-12.0); Monocyte% 5.5 % (0-10); NRBC Flagged by Analyzer 0 % (0-5); Neutrophil # 6.44 X10^3/uL (2.7-7.7); Neutrophil % 70.9 % (47-70); Platelet Count 427 K/mm3 (150-450); RBC Distribution Width SD 45.6 fl (35.1-43.9); Red Blood Count 4.48 M/mm3 (4.2-5.4); White Blood Count 9.1 K/mm3 (4.4-11.0)
[2022-07-10 13:28] LABS: ALB/GLOB Ratio 1.2 RATIO (0.9-2.4); AST(SGOT) 23 U/L (15-37); Alanine Aminotransfer ALT/SGPT 27 U/L (13-56); Albumin, Serum 3.8 g/dL (3.2-5.0); Alkaline Phosphatase 94 U/L (45-117); Anion Gap 10 (5-15); BUN 22 mg/dL (7-18); BUN/Creat Ratio 22.5 RATIO (10-20); Calcium,Total 10.1 mg/dL (8.5-10.1); Chloride 107 mmol/L (98-107); Creatinine, Serum 0.98 mg/dL (0.55-1.02); EST Glomerular Filtration Rate 59 mL/min (>60); Est Glom Filt Rate - Afr Amer 72 mL/min (>60); Globulin 3.3 g/dL (2.2-4.2); Glucose 89 mg/dL (74-106); Potassium 4.6 mmol/L (3.5-5.1); Protein, Total 7.1 g/dL (6.4-8.2); Sodium Level 142 mmol/L (136-145)
[2022-07-10 14:11] LABS: Microalbumin,Random Urine 13.3 mg/L (NO RANGE EST.); Microalbumin:Creatinine Ratio 9.1 mg/g CRE (<30 mg/g CRE)
== END | disposition home or self-care (01) ==
LOC: MFPLAB 10:25
PROVIDERS: PCP Family Medicine; Referring Provider Family Medicine; Visit Provider Family Medicine
DX: I10 Essential (primary) hypertension (principal); M19.90 Unspecified osteoarthritis, unspecified site
CPT/HCPCS: 36415; 80053; 82043; 82570; 85025

== ENCOUNTER 2023-06-23 07:22 | Emergency (ER) | payer MEDICARE, SELFPAY ==
[2023-06-23] VITALS (17 sets, daily range): BP systolic 124–261; BP diastolic 49–239; PULSE 70–107; RESP 14–20; TEMP 36.6; O2SAT 88–100; BMI 35.3
--- NOTE | 2023-06-23 07:25 | RAD_ITS ---
HISTORY: Neuro deficit, acute, stroke suspected. TECHNIQUE: XR Chest 1 View. COMPARISON: 09/20/2014. FINDINGS: CARDIOMEDIASTINAL BORDERS: Cardiac silhouette within normal limits in size. Mediastinal contour unremarkable with calcification of the aortic knob. LUNGS: Mild left basilar opacity. PLEURA: No pleural effusion or pneumothorax seen. OSSEOUS STRUCTURES: Mild degenerative change. RAD/Chest 1 View IMPRESSION: Mild left basilar atelectasis. Electronically Signed: Dilma Magana MD at 9:27 EST ,
--- NOTE | 2023-06-23 07:25 | EKG12_ITS ---
Test Reason : STROKE Blood Pressure : / mmHG Vent. Rate : 077 BPM Atrial Rate : 077 BPM P-R Int : 162 ms QRS Dur : 076 ms QT Int : 366 ms P-R-T Axes : 039 -18 004 degrees QTc Int : 414 ms Normal sinus rhythm Inferior infarct , age undetermined Abnormal ECG Confirmed by TRACY DUBOSE, DERIC ([id number]), supervising film or videotape editor FILIPE CORTEZ ([id number]) on 06/24/2023 9:22:48 AM Referred By: KATYA Confirmed By:DREIC MOLINA MD
--- NOTE | 2023-06-23 07:25 | CT_ITS ---
We are attempting to reach an attending provider to discuss findings. An addendum with communication details will be sent when the communication is complete. INDICATION: Neuro deficit, acute, stroke suspected EXAMINATION: CT BRAIN - CT Head Stroke Protocol W/O Contrast Injection TECHNIQUE: Multiple axial images were obtained of the head without intravenous contrast. A radiation dose optimization technique was used for this scan. IV Contrast dosage and agent: None. COMPARISON: May 11, 2018 CT, MRI brain March 19, 2021 FINDINGS: BRAIN PARENCHYMA: No intra- or extra-axial hemorrhage. No evidence of acute infarct. Patchy bilateral periventricular and subcortical hypodense chronic small vessel white matter ischemic change. No intracranial mass or mass effect. There is preservation of the denney/white matter interface. Posterior fossa structures are unremarkable. CSF SPACES: Cerebral volume appropriate for age. No hydrocephalus. Basal cisterns are patent. CALVARIUM, SKULL BASE, PARANASAL SINUSES AND MASTOID AIR CELLS: No acute osseous finding. Paransasal sinuses are clear. Mastoid air cells are clear. ORBITS: Both globes, extraocular muscles, optic nerves and retrobulbar fat appear unremarkable. ASPECTS Score for Acute Strokes: 10 CT/STROKE Brain/Head without Cont IMPRESSION: No intracranial hemorrhage. Moderate patchy periventricular and subcortical hypodense chronic small vessel white matter ischemic change which limits sensitivity for small ischemic strokes. MRI could further evaluate as clinically indicated. Electronically Signed: Bret Villar MD at 7:46 EST ,
--- NOTE | 2023-06-23 07:25 | CT_ITS ---
HISTORY: Neuro deficit, acute, stroke suspected. TECHNIQUE: Emmett of Velázquez/head and carotid CT angiogram protocol was performed after the intravenous administration of 100 mL Isovue 370. NASCET criteria using the distal ICAs for comparison were used for evaluation of stenoses. 3D reconstructions were reviewed. A radiation dose optimization technique was used for this scan. 1982 images. COMPARISON: CT head same day. FINDINGS: AORTIC ARCH AND BRANCHES: Mild calcified plaque. RIGHT CCA: Calcified and noncalcified plaque at the bifurcation with less than 50% stenosis. No occlusion, significant stenosis or dissection. RIGHT ICA: Calcified and noncalcified plaque at the origin with approximately 70% stenosis. No occlusion. LEFT CCA/LEFT ICA: Calcified plaque at the common carotid bifurcation extending into the origin of the internal carotid artery with less than 50% stenosis. No occlusion, significant stenosis or dissection. RIGHT VERTEBRAL ARTERY: No occlusion, significant stenosis or dissection. LEFT VERTEBRAL ARTERY: No occlusion, significant stenosis or dissection. ICAs: No significant stenosis at the intracranial/visualized segments. Mild calcified plaque at the carotid siphons. ACAs: No significant stenosis at the visualized segments. MCAs: Thrombus and occlusion of a mid M2 segment of the right middle cerebral artery, extending distally. Patent on the left. corporate counselor: No significant stenosis at the visualized segments. Left origin. BASILAR ARTERY: No significant stenosis. VERTEBRAL ARTERIES: No significant stenosis at the intradural/visualized segments. No evidence of intracranial aneurysm or vascular malformation. CT/STROKE CTA Head AND Neck W/Con IMPRESSION: Severe stenosis at the origin of the right internal carotid artery in the neck. 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 N.B. : The above Results were Read Back by Dilma Magana MD to Cristian Liu DO, and understanding confirmed on 06/23/2023 08:14:44 (ET). Electronically Signed: Dilma Magana MD at 8:14 EST ,
--- NOTE | 2023-06-23 07:28 | NURSING ---
FAXED FACESHEET TO [facility]
--- NOTE | 2023-06-23 07:29 | NURSING ---
0700 STROKE ALERT CALLED
--- OUTSIDE RECORDS SUMMARY | 2023-06-23 07:34 | XMS RPT_ITS | CCD ---
Author Name Unknown Address [address] [place] [address] Organization [facility] Care Team Providers Care Emergency Medicine Medical Director Name Role Phone Viridiana Jackson LPN Unavailable Viridiana Jackson LPN Unavailable Wandy Oliveira MD Unavailable Anderson Nicholas MD Primary Care Provider Anderson Nicholas MD Primary Care Provider Anderson Nicholas MD Primary Care Provider MIRYAM RAMIREZ Referring Unavailable MIRYAM RAMIREZ Attending Unavailable ANDERSON NICHOLAS Primary Care Unavailable ANDERSON NICHOLAS Primary Care Unavailable IRIS ULLOA Attending Unavailable MIRYAM RAMIREZ Referring Unavailable MIRYAM RAMIREZ Attending Unavailable ANDERSON NICHOLAS Primary Care Unavailable Allergies Allergy Classification Reported Allergen(s) Allergy Type Date of Onset Reaction(s) Facility (2 sources) PENCILLIN drug allergy 5 [facility] Work Phone: (1 source) Penicillin G Drug Allergy 1 swelling [facility] Work Phone: (2 sources) Penicillins; Translations: [PENICILLINS] Propensity to adverse reactions 6 [facility] Work Phone: (3 sources) Penicillins Propensity to adverse reactions 6 [facility] Work Phone: (3 sources) buPROPion; Translations: [BUPROPION] Drug Allergy 3 Swelling [facility] Medications Completed/Discontinued Medications Medication Drug Class(es) Dates Sig (Normalized) Sig (Original) Acetaminophen (4 sources) End: 05-15-2023 take 1 tablet by mouth once daily acetaminophen (TYLENOL ARTHRITIS ORAL) Take 1 tablet by mouth once daily. 0 05/15/2023 Discontinued Problems Active Problems Problem Classification Problem Date Documented Da te Episodic/Chronic Cancer of breast (19 sources) Carcinoma in situ of breast; Translations: [Malignant neoplasm of unspecified site of unspecified female breast] Onset: 05-09-1991 09-06-2014 Chronic Essential hypertension (2 sources) Hypertensive disorder; Translations: [Essential (primary) hypertension] 09-05-2014 Chronic Genitourinary symptoms and ill-defined conditions (1 source) Incontinence; Translations: [Mixed incontinence] 12-22-2022 Chronic Mood disorders (6 sources) Depressive disorder; Translations: [Depressive disorder] Onset: 04-02-2019 09-05-2014 Chronic Other nervous system disorders (1 source) Lesion of ulnar nerve, right upper limb; Translations: [Lesion of ulnar nerve] Onset: 09-06-2021 09-06-2021 Chronic Other nervous system disorders (1 source) Carpal tunnel syndrome, right upper limb; Translations: [Carpal tunnel syndrome] Onset: 09-06-2021 09-06-2021 Chronic Other nervous system disorders (1 source) Anesthesia of skin; Translations: [Anesthesia of skin] Onset: 08-23-2021 08-23-2021 Episodic Unclassified (2 sources) Screening mammography ; Translations: [Encounter for screening mammogram for malignant neoplasm of breast] Onset: 08-19-2016 08-19-2016 Past or Other Problems Problem Classification Problem Date Documented Da te Episodic/Chronic Cancer of breast (2 sources) History of malignant neoplasm of breast; Translations: [Personal history of malignant neoplasm of breast] Onset: 08-19-2016 08-19-2016 Episodic Diseases of mouth; excluding dental (4 sources) Mucous membrane dryness; Translations: [Dry mouth, unspecified] Onset: 03-28-2021 03-28-2021 Episodic Inflammation, infection of eye (4 sources) Bacterial conjunctivitis; Translations: [Acute conjunctivitis] Onset: 10-12-2016 10-12-2016 Episodic Other aftercare (2 sources) Long-term (current) use of other medications; Translations: [Long-term (current) use of other medications] Onset: 09-28-2014 09-28-2014 Episodic Other connective tissue disease (1 source) Inflammatory neuropathy ; Translations: [Neuralgia and neuritis, unspecified] Onset: 03-08-2021 03-08-2021 Episodic Other injuries and conditions due to external causes (4 sources) Delayed healing of wound; Translations: [Other injury of unspecified body region, subsequent encounter] Onset: 09-26-2014 09-26-2014 Episodic Other screening for suspected conditions (not mental disorders or infectious disease) (6 sources) Mammography abnormal; Translations: [Other abnormal and inconclusive findings on diagnostic imaging of breast] Onset: 07-21-2014 07-21-2014 Episodic Unclassified (4 sources) Family history of malignant neoplasm of breast; Translations: [Family history of malignant neoplasm of lung] 09-05-2014 Episodic Unclassified (1 source) Problem Results Test Name Value Interpretation Reference Range Facil ity Vital Signs Date Time Vital Sign Value Performing Clinician Facility 05-15-2023 09:27-0500 Body height 161 cm Miryam Ramirez APRN.PUPPY TRAINER Work Phone: [facility] 05-15-2023 09:27-0500 Body temperature 97.7 [degF] Miryam Ramirez APRN.PUPPY TRAINER Work Phone: [facility] 05-15-2023 09:27-0500 Body weight 90.27 kg Miryam Ramirez APRN.PUPPY TRAINER Work Phone: [facility] 05-15-2023 09:27-0500 Diastolic blood pressure 80 mm[Hg] Miryam Ramirez APRNKhushbuPUPPY TRAINER Work Phone: [facility] 05-15-2023 09:27-0500 Heart rate 91 /min Miryam Ramirez APRN.PUPPY TRAINER Work Phone: [facility] 05-15-2023 09:27-0500 SaO2% (BldA) [Mass fraction] 92 % Miryam Ramirez APRN.PUPPY TRAINER Work Phone: [facility] 05-15-2023 09:27-0500 Systolic blood pressure 141 mm[Hg] Miryam Ramirez APRN.PUPPY TRAINER Work Phone: [facility] 12-22-2022 09:27-0400 Body height 160 cm Iris Ulloa MD Work Phone: [facility] 12-22-2022 09:27-0400 Body weight 89.54 kg Iris Ulloa MD Work Phone: [facility] 12-22-2022 09:27-0400 Diastolic blood pressure 70 mm[Hg] Iris Ulloa MD Work Phone: [facility] 12-22-2022 09:27-0400 Systolic blood pressure 110 mm[Hg] Iris Ulloa MD Work Phone: [facility] 05-09-2022 09:10-0500 Body height 161.5 cm Miryam Ramirez U[employer]GE BURNISHER.PUPPY TRAINER Work Phone: [facility] 05-09-2022 09:10-0500 Body temperature 97.81 [degF] Miryam Ramirez [employer] BURNISHER.PUPPY TRAINER Work Phone: [facility] 05-09-2022 09:10-0500 Body weight 91.85 kg Longford Ramirez [employer] B[employer]ISHER.PUPPY TRAINER Work Phone: [facility] 05-09-2022 09:10-0500 Diastolic blood pressure 81 mm[Hg] Longford Ramirez [employer] BURNISHER.PUPPY TRAINER Work Phone: [facility] 05-09-2022 09:10-0500 Heart rate 89 /min Longford Ramirez [employer] BURNISHER.PUPPY TRAINER Work Phone: [facility] 05-09-2022 09:10-0500 SaO2% (BldA) [Mass fraction] 96 % Longford Ramirez [employer] BURNISHER.PUPPY TRAINER Work Phone: [facility] 05-09-2022 09:10-0500 Systolic blood pressure 156 mm[Hg] Miryam Ramirez [employer] BURNISHER.PUPPY TRAINER Work Phone: [facility] 11-08-2021 09:24-0400 Body temperature 98.1 [degF] Longford Ramirez [employer] BURNISHER.PUPPY TRAINER Work Phone: [facility] 11-08-2021 09:24-0400 Body weight 94.12 kg Miryam Ramirez [employer] BURNISHER.PUPPY TRAINER Work Phone: [facility] 11-08-2021 09:24-0400 Diastolic blood pressure 92 mm[Hg] Miryam Ramirez [employer] BURNISHER.PUPPY TRAINER Work Phone: [facility] 11-08-2021 09:24-0400 Heart rate 90 /min Miryam Ramirez [employer] BURNISHER.PUPPY TRAINER Work Phone: [facility] 11-08-2021 09:24-0400 SaO2% (BldA) [Mass fraction] 95 % Miryam Ramirez [employer] BURNISHER.PUPPY TRAINER Work Phone: [facility] 11-08-2021 09:24-0400 Systolic blood pressure 161 mm[Hg] Miryam Ramirez [employer] BURNISHER.PUPPY TRAINER Work Phone: [facility] 10-12-2016 09:42-0400 BMI (Body Mass Index) 34.69 kg/m2 Viridiana Kellyclement [facility] Work Phone: 10-12-2016 09:42-0400 Body Temperature 98.1 [degF] Viridiana Kellyclement [facility] Work Phone: 10-12-2016 09:42-0400 BP Diastolic 82 mm[Hg] Viridiana Kellyclement [facility] Work Phone: 10-12-2016 09:42-0400 BP Systolic 130 mm[Hg] Viridiana Kellyclement [facility] Work Phone: 10-12-2016 09:42-0400 Height 161.29 cm Viridiana Kellyclement [facility] Work Phone: 10-12-2016 09:42-0400 Pulse (Heart Rate) 92 /min Viridiana Kellyclement [facility] Work Phone: 10-12-2016 09:42-0400 Pulse Oximetry 98 % Viridiana Leticiaclement [facility] Work Phone: 10-12-2016 09:42-0400 Respiratory Rate 14 /min Viridiana Jackson LPN [facility] Work Phone: 10-12-2016 09:42-0400 Weight 90.27 kg Viridiana Jackson LPN [facility] Work Phone: 03-17-2016 14:19-0400 Body Temperature 98.2 [degF] Viridiana Jackson LPN [facility] Work Phone: 03-17-2016 14:19-0400 BSA (Body Surface Area) 1.99 m2 Viridiana Jackson LPN [facility] Work Phone: 03-17-2016 14:19-0400 Height 161.29 cm Viridiana Jackson LPN [facility] Work Phone: 03-17-2016 14:19-0400 Weight 95.36 kg Viridiana Jackson LPN [facility] Work Phone: NEGATED: Highlighted [id number] 11:56-0400 Body height 162.56 cm Viki Zinan AT [facility] Work Phone: NEGATED: Highlighted [id number] 11:56-0400 Body height 163 cm Viki Ziats AT [facility] Work Phone: NEGATED: Highlighted [id number] 11:56-0400 Body mass index (BMI) [Ratio] 34.45 kg/m2 Viki Zinan AT [facility] Work Phone: NEGATED: Highlighted [id number] 11:56-0400 Body weight 90.72 kg Viki Ziats AT [facility] Work Phone: NEGATED: Highlighted [id number] 11:56-0400 Body weight 91 kg Viki Ziats AT [facility] Work Phone: Encounters Encounter Date Encounter Type Care Provider Facility Start: 05-15-2023 End: 05-15-2023 [facility] Facility:[facility] Start: 05-15-2023 End: 05-15-2023 ambulatory Longforddavid Ramirez [employer] BURNISHER.PUPPY TRAINER Work Phone: Hematology/Oncology Procedures Date Procedure Procedure Detail Performing Clinician Start: 09-06-2021 End: 09-06-2021 BP scrn no perf at interval Wandy Oliveira MD Work Phone: Start: 09-06-2021 End: 09-06-2021 Calc BMI out nrm gilberto nof/u Wandy Oliveira MD Work Phone: Start: 09-06-2021 End: 09-06-2021 Current tobacco non-user cad cap copd pv dm Wandy Oliveira MD Work Phone: Start: 09-06-2021 End: 09-06-2021 Docrev cur meds by [facility] clin Wandy Oliveira MD Work Phone: Start: 09-06-2021 End: 09-06-2021 Pain neg no plan Wandy Oliveira MD Work Phone: Start: 09-06-2021 End: 09-06-2021 Patient encounter procedure Wandy Oliveira MD Work Phone: Start: 10-24-2019 Mammography Miryam Hansen torey [employer]ISHER.PUPPY TRAINER Work Phone: Start: 09-17-2015 End: 09-18-2015 *CMP Complete Metabolic Panel Whitney Qiana Hauser PUPPY TRAINER Work Phone: Start: 09-17-2015 End: 09-18-2015 Lactate dehydrogenase (LDH) Whitney R Analisa PUPPY TRAINER Work Phone: Start: 09-17-2015 End: 09-18-2015 Urate Whitney R Analisa PUPPY TRAINER Work Phone: Start: 05-21-2015 End: 05-21-2015 *CMP Complete Metabolic Panel German Tan Work Phone: Start: 05-21-2015 End: 05-21-2015 Magnesium German Tan Work Phone: Start: 05-21-2015 End: 05-21-2015 Urate German Tan Work Phone: Start: 02-19-2015 End: 02-19-2015 *CBC with Differential Porter Jamia Alam Work Phone: Start: 02-19-2015 End: 02-19-2015 *CMP Complete Metabolic Panel Porter Jamia Alam Work Phone: Start: 02-19-2015 End: 02-19-2015 Lactate dehydrogenase (LDH) German Mccord Alam Work Phone: Start: 02-19-2015 End: 02-19-2015 Magnesium German Mccord Alam Work Phone: Start: 02-19-2015 End: 02-19-2015 Urate German Tan Work Phone: Start: 12-18-2014 End: 12-18-2014 *CMP Complete Metabolic Panel Porter Jamia Alam Work Phone: Start: 12-18-2014 End: 12-18-2014 Lactate dehydrogenase (LDH) German Mccord Alajamia Work Phone: Start: 12-18-2014 End: 12-18-2014 Magnesium German Mccord Alam Work Phone: Start: 12-18-2014 End: 12-18-2014 Urate German Tan Work Phone: Start: 11-27-2014 End: 11-27-2014 *CMP Complete Metabolic Panel German Mccord Alam Work Phone: Start: 11-27-2014 End: 11-27-2014 Lactate dehydrogenase (LDH) German Mccord Alam Work Phone: Start: 11-27-2014 End: 11-27-2014 Magnesium German Mccord Alam Work Phone: Start: 11-27-2014 End: 11-27-2014 Urate German Mccord Alam Work Phone: Start: 11-06-2014 End: 11-06-2014 *CMP Complete Metabolic Panel Porter M Alam Work Phone: Start: 11-06-2014 End: 11-06-2014 Lactate dehydrogenase (LDH) Porter M Alam Work Phone: Start: 11-06-2014 End: 11-06-2014 Magnesium Porter M Alam Work Phone: Start: 11-06-2014 End: 11-06-2014 Urate Porter M Alam Work Phone: Start: 10-16-2014 End: 10-31-2014 *CBC with Differential Porter M Alam Work Phone: Start: 10-02-2014 End: 10-05-2014 *CBC with Differential Porter M Alam Work Phone: Start: 10-02-2014 End: 10-05-2014 *CMP Complete Metabolic Panel Porter M Alam Work Phone: Start: 10-02-2014 End: 10-05-2014 Lactate dehydrogenase (LDH) Porter M Alam Work Phone: Start: 10-02-2014 End: 10-02-2014 Magnesium Porter M Alam Work Phone: Start: 10-02-2014 End: 10-05-2014 Urate Porter M Alam Work Phone: Start: 09-25-2014 End: 09-28-2014 *CBC with Differential Porter M Alam Work Phone: Start: 09-25-2014 End: 09-28-2014 *CMP Complete Metabolic Panel Porter M Alam Work Phone: Start: 09-25-2014 End: 09-28-2014 Lactate dehydrogenase (LDH) Porter M Alam Work Phone: Start: 09-25-2014 End: 09-28-2014 Urate Porter M Alam Work Phone: Start: 06-08-2006 Lipid 1996 panel - S satnam or Plasma Miryam Ramirez APRN.PUPPY TRAINER Work Phone: NEGATED: Highlighted rowStart: 09-06-2021 End: 09-06-2021 Documentation of current medications Viki Lara AT Plan of Treatment Date Care Activity Detail Author Start: 04-14-2033 Urine microalbumin profile DTaP,Tdap,Td Vaccine (2 - Td or Tdap) [facility] Start: 02-06-2023 Influenza vaccination INFLUENZA (#1) [facility] Start: 12-22-2022 End: 02-21-2023 Bacteria identified in Urine by Culture URINE CULTURE Microbiology Routine Mixed incontinence Expected: 12/22/2022, Expires: 02/21/2023 [facility] Work Phone: Immunizations Immunization Date Immunization Notes Care Provider Yovani montero 04-12-2012 influenza virus vacc ine, unspecified formulation Miryam Ramirez APRN.PUPPY TRAINER Work Phone: [facility] Payers Date Payer Category Payer Medicare [employer] MEDICARE A ETNA MEDICARE PPO [id number] 2021-Present [phone] [address] [place] [address] [facility] [id number] 2021 Medicare AETNA MEDICARE A ETNA MEDICARE PPO [id number] 2021-Present [phone] [address] [place] [address] PPO [id number] 2021 Medicare [id number] Social History Date Type Detail Facility Start: 09-06-2021 End: 09-06-2021 Assertion Unknown if ever smoked [facility] Work Phone: Start: 04-10-2011 Tobacco smoking stat us [place]IS Never smoked tobacco [facility] Start: 11-08-2021 End: 05-15-2023 Alcohol intake Current drinker of alcohol (finding) [facility] Start: 04-06-2008 History SDOH Alcohol Comment Seldom [facility] Start: 1950 Sex Assigned At Not on file C [facility] Start: 10-14-2021 End: 10-24-2021 Exposure to SARS-CoV-2 (event) Not sure [facility] Start: 04-10-2011 Tobacco use and exposure Smokeless tobacco non-user [facility] Start: 11-14-2022 End: 12-22-2022 History of Social function [facility] Start: 11-14-2022 End: 12-22-2022 Tobacco use panel [facility] Adult Depression Screening Assessment 4 [facility] Clinical Notes 11-08-2021 to 05-15-2023 Miryam Ramirez APRN.PUPPY TRAINER - 05/15/2023 9:40 AM Iris Ashley MD - 12/22/2022 9:12 AM EDTMiryam Ramirez APRN.NAZARIO - 05/09/2022 9:13 AM Virgilio Ramirez APRN.PUPPY TRAINER - 11/08/2021 9:25 AM EDT Note Date & Type Note Facility 05-15-2023 Note HNO ID: [id number] Author: Miryam Ramirez APRN.PUPPY TRAINER Service: ? Author Type: Nurse Practitioner Type: Progress Notes Filed: 05/15/2023 12:17 PM Note Text: Chief Complaint Patient presents with: Established Patient HPI: Natalia Leigh is a 72 year old female who presents here today for follow up breast cancer. H/o DX:Right Breast cancer-ER/NJ positive pT1b, N0, intermediate risk score on Oncotype DX. Abnormality found on screening mammogram 05/2014. MRI 07/06/14: IMPRESSION: HIGHLY SUGGESTIVE OF MALIGNANCY Biopsy of the 2 right-sided suspicious masses noted on ultrasound is suggested. Left breast enhancing focus can be followed with MRI up in 6 months. Previous right breast cancer in 1990 which was treated with breast conservation surgery by Dr. Chris Segal. S/p right mastectomy on 08/22/[address] Saba. Path: Right breast invasive ductal carcinoma. 2 separate foci. One area measures 9 mm and the other 7 mm. There is also DCIS measuring 0.1 x 0.1 x 0.1 cm. It comprises 1% of the total tumor volume. Cribriform and grade to intermediate. Surgical margins are clear. No sentinel lymph nodes were submitted but 2 lymph nodes were associated with the total mastectomy and both were negative. Estrogen receptors 90% strong. Progesterone receptor 70% strong. HER-2/mendy was 1-2+ equivocal and HER-2/mendy by fish was negative pT1b N0 Mx Received TC completed on 11/27/14. No delays. Tolerated well. Armidex began after completing chemotherapy. Transferred care to this office 2016. Stopped arimidex d/t upset stomach and hair thinning 2016 Current therapy:Femara Began 2016 No new concerns today. Appetite: Good. Energy level: Medium. Denies fevers or recent illness. Resp:denies cough or sob Cardiac:denies chest pain/palpitations GI:denies abd pain, n/v, moving bowels regularly :denies dysuria/hematuria Extrem:b/l knee arthritis/pain-followed by Ortho, chronic low back pain-followed by pain mgmt. Dr. [facility]. Receives inj. to both. Endo:denies hot flashes Neuro:denies symptoms of neuropathy Skin:denies rashes/lesions Heme:denies bleeding The ROS is otherwise negative. Past medical history, appointments, medications, allergies reviewed. No changes. EXAM: BP 141/80 Pulse 91 Temp 36.5 ?C (97.7 ?F) Ht 161 cm (5' 3.39 ) Wt 90.3 kg (199 lb) SpO2 92% BMI 34.82 kg/m? APPEARANCE Well appearing, alert, in no acute distress, well-hydrated, well nourished. HEART RRR with normal S1 and S2, no murmurs LUNG clear to auscultation BREAST FEMALE R mastectomy scar no nodule, L no mass/nodule LYMPH NODES No cervical lymphadenopathy, No supraclavicular lymphadenopathy, and No axillary lymphadenopathy. ABDOMEN bowel sounds normoactive, soft, non-tender EXTREMITIES No edema NEURO Awake, alert and oriented x 3, Normal gait, and No involuntary motions. SKIN Skin color, texture, turgor normal, no suspicious rashes or lesions ASSESSMENT/PLAN: 1. Malignant neoplasm of upper-outer quadrant of right breast in female, estrogen receptor positive (HCC) - ICD9: 174.4, V86.0, ICD10: C50.411, Z17.0 ER/NJ positive pT1b, N0, intermediate risk score on Oncotype DX. S/p R mastectomy. Received TC with no delays. - No concerning findings on exam. - Tolerating femara well. - Continue femara. Will complete AI therapy this month. - L mammogram due. - Follow up in 6 months. - Pt. aware to call office with any questions/concerns. The patient indicates understanding of these issues and agrees with the plan. All documentation from previous visit of 11/14/22-myself was copied and pasted, documentation has been reviewed and edited as necessary for today's visit. Miryam Ramirez APRN.[facility] 05-15-2023 History of Present illness Narrative Chief Complaint Patient presents with: Established Patient HPI: Natalia Leigh is a 72 year old female who presents here today for follow up breast cancer. H/o DX:Right Breast cancer-ER/NJ positive pT1b, N0, intermediate risk score on Oncotype DX. Abnormality found on screening mammogram 05/2014. MRI 07/06/14: IMPRESSION: HIGHLY SUGGESTIVE OF MALIGNANCY Biopsy of the 2 right-sided suspicious masses noted on ultrasound is suggested. Left breast enhancing focus can be followed with MRI up in 6 months. Previous right breast cancer in 1990 which was treated with breast conservation surgery by Dr. Chris Segal. S/p right mastectomy on 08/22/[address] Saba. Path: Right breast invasive ductal carcinoma. 2 separate foci. One area measures 9 mm and the other 7 mm. There is also DCIS measuring 0.1 x 0.1 x 0.1 cm. It comprises 1% of the total tumor volume. Cribriform and grade to intermediate. Surgical margins are clear. No sentinel lymph nodes were submitted but 2 lymph nodes were associated with the total mastectomy and both were negative. Estrogen receptors 90% strong. Progesterone receptor 70% strong. HER-2/mendy was 1-2+ equivocal and HER-2/mendy by fish was negative pT1b N0 Mx Received TC completed on 11/27/14. No delays. Tolerated well. Armidex began after completing chemotherapy. Transferred care to this office 2016. Stopped arimidex d/t upset stomach and hair thinning 2016 Current therapy:Femara Began 2016 No new concerns today. Appetite: Good. Energy level: Medium. Denies fevers or recent illness. Resp:denies cough or sob Cardiac:denies chest pain/palpitations GI:denies abd pain, n/v, moving bowels regularly :denies dysuria/hematuria Extrem:b/l knee arthritis/pain-followed by Ortho, chronic low back pain-followed by pain mgmt. Dr. Samano[facility]. Receives inj. to both. Endo:denies hot flashes Neuro:denies symptoms of neuropathy Skin:denies rashes/lesions Heme:denies bleeding The ROS is otherwise negative. Past medical history, appointments, medications, allergies reviewed. No changes. EXAM: BP 141/80 Pulse 91 Temp 36.5 C (97.7 F) Ht 161 cm (5' 3.39 ) Wt 90.3 kg (199 lb) SpO2 92% BMI 34.82 kg/m APPEARANCE Well appearing, alert, in no acute distress, well-hydrated, well nourished. HEART RRR with normal S1 and S2, no murmurs LUNG clear to auscultation BREAST FEMALE R mastectomy scar no nodule, L no mass/nodule LYMPH NODES No cervical lymphadenopathy, No supraclavicular lymphadenopathy, and No axillary lymphadenopathy. ABDOMEN bowel sounds normoactive, soft, non-tender EXTREMITIES No edema NEURO Awake, alert and oriented x 3, Normal gait, and No involuntary motions. SKIN Skin color, texture, turgor normal, no suspicious rashes or lesions ASSESSMENT/PLAN: 1. Malignant neoplasm of upper-outer quadrant of right breast in female, estrogen receptor positive (HCC) - ICD9: 174.4, V86.0, ICD10: C50.411, Z17.0 ER/NJ positive pT1b, N0, intermediate risk score on Oncotype DX. S/p R mastectomy. Received TC with no delays. - No concerning findings on exam. - Tolerating femara well. - Continue femara. Will complete AI therapy this month. - L mammogram due. - Follow up in 6 months. - Pt. aware to call office with any questions/concerns. The patient indicates understanding of these issues and agrees with the plan. All documentation from previous visit of 11/14/22-myself was copied and pasted, documentation has been reviewed and edited as necessary for today's visit. Miryam Ramirez APRN.PUPPY TRAINER documented in this encounter [facility] 12-22-2022 Note HNO ID: [id number] Author: Iris Ulloa MD Service: ? Author Type: Physician Type: Progress Notes Filed: 12/22/2022 12:33 PM Note Text: Field Supervisor offered: Patient declines. Natalia is a 72 year old who presents for an annual gynecologic exam with complaints, urinary incontinence . Has mixed incontinence. Leaking small amounts. Using restroom 3 times a day, and maybe once during the night. Occasional soda and drinking mostly water. No other urinary symptoms. Postmenopausal: Yes HRT use: No. Last Pap: 08/24/2015 normal HPV: 04/07/2008 negative History of abnormal pap: No Last mammogram: 2021 History of abnormal mammogram: Yes - h/o breast cancer OB History T3 L2 SAB0 IAB0 Ectopic0 Multiple0 Live Births0 Comment: One daughter is Commercial Account Officer History LMP: Postmenopausal Age at Menarche: Age at First : Age at Menopause: Commercial Account Officer History Comments: Sexual Activity: Yes; Male Contraception: No contraception data on record PAST MEDICAL HISTORY Diagnosis Date Adjustment disorder with depressed mood Allergic rhinitis, cause unspecified Disorder of bone and cartilage, unspecified Glaucoma Right eye- early stage Hypertension Low back pain Malignant neoplasm of breast (female), unspecified site BREAST CANCER Osteoarthritis Peptic ulcer, unspecified site, unspecified as acute or chronic, without mention of hemorrhage, perforation, or obstruction 07/2006 Peptic ulcer disease PMH - PAST MEDICAL HISTORY OF LEG ACHES Urinary tract infection, site not specified RECURRENT PAST SURGICAL HISTORY Procedure Laterality Date BMD APPENDICULAR (ENDOCRIN)_*FL BONE [id number]/ BX BREAST W/DEVICE 1ST LESION ULTRASOUND GUID 07/21/2014 U/S mamotome bx 11 Oclock right breast BX BREAST W/DEVICE 1ST LESION ULTRASOUND GUID 08/01/2014 DELIVERY ONLY X 3 COLONOSCOPY FLX DX W/COLLJ SPEC WHEN PFRMD 07/2006 Colonoscopy ESOPHAGOGASTRODUODENOSCOPY TRANSORAL DIAGNOSTIC 07/2006 EGD MASTECTOMY, SIMPLE, COMPLETE 08/17/2014 RIGHT PAST SURGICAL HISTORY OF [age] BILATERAL FOOT SURGERY PAST SURGICAL HISTORY OF 1990 RIGHT AXILLARY DISSECTION AND RADIATION CHEM. PAST SURGICAL HISTORY OF 1990 RIGHT BREAST LUMPECTOMY PAST SURGICAL HISTORY OF [place] Teeth x 4 PAST SURGICAL HISTORY OF 2020 nerve surgery PAST SURGICAL HISTORY OF 2019 melanoma removed from left leg TONSILLECTOMY AND ADENOIDECTOMY FAMILY HISTORY Problem Relation Age of Onset Heart Mother PASSED FROM [place] Hypertension Mother Cancer Father PASSED FROM [facility] [place] Alcohol/Drug Father Breast Cancer Sister PASSED Cancer Brother Lung Prostate Cancer Brother prostate Hypertension Paternal Grandmother Hypertension Paternal Grandfather other (cutaneous vasculitis) Daughter Breast Cancer Maternal Aunt SOCIAL HISTORY Social History Tobacco Use Smoking status: Never Smokeless tobacco: Never Vaping Use Vaping Use: Never used Substance Use Topics Alcohol use: Yes Comment: Seldom Drug use: No REVIEW OF SYSTEMS Abdomen: No abdominal pain, nausea, vomiting, diarrhea, or constipation. No bloating, early satiety, indigestion, or increased flatulence. Bladder: No dysuria, gross hematuria, urinary frequency, urinary urgency, or incontinence Breast: No breast lumps, nipple d/c, overlying skin changes, redness or skin retraction Allergies and current medication updated:Yes EXAM: BP 110/70 Ht 5' 3 (1.60m) Wt 197 lb 6.4 oz (89.5kg) BMI 34.98 kg/(m2). GENERAL: pleasant, female in no apparent distress HEENT: Normocephalic and atraumatic NECK: full range of motion BREAST: left breast is soft, non-tender, no dominant mass, normal nipple-areolar complex, no lymphadenopathy, and no nipple discharge. Right mastectomy noted and no lymphadenopathy or skin changes CHEST: Normal inspiratory effort ABDOMEN: soft, non-tender, and no masses PELVIC: external genitalia normal, normal Bartholin's glands, urethra, Chataignier's glands, no vulvar lesions, no cervical lesions, good vaginal support, physiologic discharge present, normal appearing perineal body and perianal region BIMANUAL: uterus normal size, shape and consistency, no adnexal masses, and non-tender RECTOVAGINAL: deferred. NEURO: exam grossly non-focal EXTREMITIES: normal ASSESSMENT/PLAN: 1) Health maintenance: Pap/HPV screening no longer needed Mammogram ordered Nutrition, exercise and routine health maintenance exams reviewed. Colon cancer screening: followed by PCP TSH/lipids/glucose: followed by PCP BMD: followed by PCP Mixed urinary incontinence: Check urine. Recommend seeing uro gynecology 2) Follow up one year or sooner as needed Iris Ulloa DO [facility] 12-22-2022 History of Present illness Narrative Field Supervisor offered: Patient declines. Natalia is a 72 year old who presents for an annual gynecologic exam with complaints, urinary incontinence . Has mixed incontinence. Leaking small amounts. Using restroom 3 times a day, and maybe once during the night. Occasional soda and drinking mostly water. No other urinary symptoms. Postmenopausal: Yes HRT use: No. Last Pap: 08/24/2015 normal HPV: 04/07/2008 negative History of abnormal pap: No Last mammogram: 2021 History of abnormal mammogram: Yes - h/o breast cancer OB History T3 L2 SAB0 IAB0 Ectopic0 Multiple0 Live Births0 Comment: One daughter is Commercial Account Officer History LMP: Postmenopausal Age at Menarche: Age at First : Age at Menopause: Commercial Account Officer History Comments: Sexual Activity: Yes; Male Contraception: No contraception data on record PAST MEDICAL HISTORY Diagnosis Date Adjustment disorder with depressed mood Allergic rhinitis, cause unspecified Disorder of bone and cartilage, unspecified Glaucoma Right eye- early stage Hypertension Low back pain Malignant neoplasm of breast (female), unspecified site BREAST CANCER Osteoarthritis Peptic ulcer, unspecified site, unspecified as acute or chronic, without mention of hemorrhage, perforation, or obstruction 07/2006 Peptic ulcer disease PMH - PAST MEDICAL HISTORY OF LEG ACHES Urinary tract infection, site not specified RECURRENT PAST SURGICAL HISTORY Procedure Laterality Date BMD APPENDICULAR (ENDOCRIN)_*FL BONE [id number] BX BREAST W/DEVICE 1ST LESION ULTRASOUND GUID 07/21/2014 U/S mamotome bx 11 Oclock right breast BX BREAST W/DEVICE 1ST LESION ULTRASOUND GUID 08/01/2014 DELIVERY ONLY X 3 COLONOSCOPY FLX DX W/COLLJ SPEC WHEN PFRMD 07/2006 Colonoscopy ESOPHAGOGASTRODUODENOSCOPY TRANSORAL DIAGNOSTIC 07/2006 EGD MASTECTOMY, SIMPLE, COMPLETE 08/17/2014 RIGHT PAST SURGICAL HISTORY OF [age] BILATERAL FOOT SURGERY PAST SURGICAL HISTORY OF 1990 RIGHT AXILLARY DISSECTION AND RADIATION CHEM. PAST SURGICAL HISTORY OF 1990 RIGHT BREAST LUMPECTOMY PAST SURGICAL HISTORY OF [place] Teeth x 4 PAST SURGICAL HISTORY OF 2020 nerve surgery PAST SURGICAL HISTORY OF 2019 melanoma removed from left leg TONSILLECTOMY & ADENOIDECTOMY <AGE 10 FAMILY HISTORY Problem Relation Age of Onset Heart Mother PASSED FROM [place] Hypertension Mother Cancer Father PASSED FROM [facility] Alcohol/Drug Father Breast Cancer Sister PASSED Cancer Brother Lung Prostate Cancer Brother prostate Hypertension Paternal Grandmother Hypertension Paternal Grandfather other (cutaneous vasculitis) Daughter Breast Cancer Maternal Aunt SOCIAL HISTORY Social History Tobacco Use Smoking status: Never Smokeless tobacco: Never Vaping Use Vaping Use: Never used Substance Use Topics Alcohol use: Yes Comment: Seldom Drug use: No REVIEW OF SYSTEMS Abdomen: No abdominal pain, nausea, vomiting, diarrhea, or constipation. No bloating, early satiety, indigestion, or increased flatulence. Bladder: No dysuria, gross hematuria, urinary frequency, urinary urgency, or incontinence Breast: No breast lumps, nipple d/c, overlying skin changes, redness or skin retraction Allergies and current medication updated:Yes EXAM: BP 110/70 Ht 5' 3 (1.60m) Wt 197 lb 6.4 oz (89.5kg) BMI 34.98 kg/(m^2). GENERAL: pleasant, female in no apparent distress HEENT: Normocephalic and atraumatic NECK: full range of motion BREAST: left breast is soft, non-tender, no dominant mass, normal nipple-areolar complex, no lymphadenopathy, and no nipple discharge. Right mastectomy noted and no lymphadenopathy or skin changes CHEST: Normal inspiratory effort ABDOMEN: soft, non-tender, and no masses PELVIC: external genitalia normal, normal Bartholin's glands, urethra, Chataignier's glands, no vulvar lesions, no cervical lesions, good vaginal support, physiologic discharge present, normal appearing perineal body and perianal region BIMANUAL: uterus normal size, shape and consistency, no adnexal masses, and non-tender RECTOVAGINAL: deferred. NEURO: exam grossly non-focal EXTREMITIES: normal ASSESSMENT/PLAN: 1) Health maintenance: Pap/HPV screening no longer needed Mammogram ordered Nutrition, exercise and routine health maintenance exams reviewed. Colon cancer screening: followed by PCP TSH/lipids/glucose: followed by PCP BMD: followed by PCP Mixed urinary incontinence: Check urine. Recommend seeing uro gynecology 2) Follow up one year or sooner as needed Iris Ulloa DO documented in this encounter [facility] 11-14-2022 Note HNO ID: [id number] Author: Miryam Ramirez APRN.PUPPY TRAINER Service: ? Author Type: Nurse Practitioner Type: Progress Notes Filed: 11/14/2022 3:29 PM Note Text: Chief Complaint Patient presents with: Established Patient HPI: Natalia Leigh is a 72 year old female who presents here today for follow up breast cancer. H/o DX:Right Breast cancer-ER/NJ positive pT1b, N0, intermediate risk score on Oncotype DX. Abnormality found on screening mammogram 05/2014. MRI 07/06/14: IMPRESSION: HIGHLY SUGGESTIVE OF MALIGNANCY Biopsy of the 2 right-sided suspicious masses noted on ultrasound is suggested. Left breast enhancing focus can be followed with MRI up in 6 months. Previous right breast cancer in 1990 which was treated with breast conservation surgery by Dr. Chris Segal. S/p right mastectomy on 08/22/[address] Saba. Path: Right breast invasive ductal carcinoma. 2 separate foci. One area measures 9 mm and the other 7 mm. There is also DCIS measuring 0.1 x 0.1 x 0.1 cm. It comprises 1% of the total tumor volume. Cribriform and grade to intermediate. Surgical margins are clear. No sentinel lymph nodes were submitted but 2 lymph nodes were associated with the total mastectomy and both were negative. Estrogen receptors 90% strong. Progesterone receptor 70% strong. HER-2/mendy was 1-2+ equivocal and HER-2/mendy by fish was negative pT1b N0 Mx Received TC completed on 11/27/14. No delays. Tolerated well. Armidex began after completing chemotherapy. Transferred care to this office 2016. Stopped arimidex d/t upset stomach and hair thinning 2016 Current therapy:Femara Began 2016 Appetite: Good. Energy level: Ok. Denies fevers or recent illness. Resp:denies cough or sob Cardiac:denies chest pain/palpitations GI:denies abd pain, n/v, moving bowels regularly :denies dysuria/hematuria-more incontinence Extrem:b/l knee arthritis/pain-followed by Ortho, chronic low back pain-followed by pain mgmt. Receives inj. to both. Endo:denies hot flashes Neuro:denies symptoms of neuropathy Skin:denies rashes/lesions Heme:denies bleeding The ROS is otherwise negative. Past medical history, appointments, medications, allergies reviewed. No changes. EXAM: BP 177/76 Pulse 84 Temp 36.7 ?C (98.1 ?F) Ht 162 cm (5' 3.78 ) Wt 91.6 kg (202 lb) SpO2 94% BMI 34.91 kg/m? APPEARANCE Well appearing, alert, in no acute distress, well-hydrated, well nourished. HEART RRR with normal S1 and S2, no murmurs LUNG clear to auscultation BREAST FEMALE R mastectomy scar no nodule, L no mass/nodule LYMPH NODES No cervical lymphadenopathy, No supraclavicular lymphadenopathy, and No axillary lymphadenopathy. ABDOMEN bowel sounds normoactive, soft, non-tender EXTREMITIES No edema NEURO Awake, alert and oriented x 3, Normal gait, and No involuntary motions. SKIN Skin color, texture, turgor normal, no suspicious rashes or lesions ASSESSMENT/PLAN: 1. Malignant neoplasm of upper-outer quadrant of right breast in female, estrogen receptor positive (HCC) - ICD9: 174.4, V86.0, ICD10: C50.411, Z17.0 ER/NJ positive pT1b, N0, intermediate risk score on Oncotype DX. S/p R mastectomy. Received TC with no delays. - No concerning findings on exam. - Tolerating femara well. - Continue femara. - L mammogram due in August 2022. - Needs EXCEL DEVELOPER appt.-est. care-Urinary incont.-last pelvic exam years ago by Hina Sky. - Follow up in 6 months. - Pt. aware to call office with any questions/concerns. The patient indicates understanding of these issues and agrees with the plan. All documentation from previous visit of 11/08/21-myself was copied and pasted, documentation has been reviewed and edited as necessary for today's visit. Miryam Ramirez APRN.[facility] 05-09-2022 History of Present illness Narrative Chief Complaint Patient presents with: Established Patient HPI: Natalia Leigh is a 71 year old female who presents here today for follow up breast cancer. H/o DX:Right Breast cancer-ER/NJ positive pT1b, N0, intermediate risk score on Oncotype DX. Abnormality found on screening mammogram 05/2014. MRI 07/06/14: IMPRESSION: HIGHLY SUGGESTIVE OF MALIGNANCY Biopsy of the 2 right-sided suspicious masses noted on ultrasound is suggested. Left breast enhancing focus can be followed with MRI up in 6 months. Previous right breast cancer in 1990 which was treated with breast conservation surgery by Dr. Chris Segal. S/p right mastectomy on 08/22/[address] Saba. Path: Right breast invasive ductal carcinoma. 2 separate foci. One area measures 9 mm and the other 7 mm. There is also DCIS measuring 0.1 x 0.1 x 0.1 cm. It comprises 1% of the total tumor volume. Cribriform and grade to intermediate. Surgical margins are clear. No sentinel lymph nodes were submitted but 2 lymph nodes were associated with the total mastectomy and both were negative. Estrogen receptors 90% strong. Progesterone receptor 70% strong. HER-2/mendy was 1-2+ equivocal and HER-2/mendy by fish was negative pT1b N0 Mx Received TC completed on 11/27/14. No delays. Tolerated well. Armidex began after completing chemotherapy. Transferred care to this office 2016. Stopped arimidex d/t upset stomach and hair thinning 2016 Current therapy:Femara Began 2016 No new concerns today. Appetite: Good. Energy level: Not much. Denies fevers or recent illness. Resp:denies cough or sob Cardiac:denies chest pain/palpitations GI:denies abd pain, n/v, moving bowels regularly :denies dysuria/hematuria Extrem:b/l knee arthritis/pain-followed by Ortho, chronic low back pain-followed by pain mgmt. Plans to have injections next month. Endo:denies hot flashes Neuro:denies symptoms of neuropathy Skin:denies rashes/lesions Heme:denies bleeding The ROS is otherwise negative. Past medical history, appointments, medications, allergies reviewed. No changes. EXAM: BP 156/81 Pulse 89 Temp 36.6 C (97.8 F) Ht 161.5 cm (5' 3.58 ) Wt 91.9 kg (202 lb 8 oz) SpO2 96% BMI 35.22 kg/m APPEARANCE Well appearing, alert, in no acute distress, well-hydrated, well nourished. HEART RRR with normal S1 and S2, no murmurs LUNG clear to auscultation BREAST FEMALE R mastectomy scar no nodule, L no mass/nodule LYMPH NODES No cervical lymphadenopathy, No supraclavicular lymphadenopathy, and No axillary lymphadenopathy. ABDOMEN bowel sounds normoactive, soft, non-tender, non-distended EXTREMITIES No edema NEURO Awake, alert and oriented x 3, Normal gait, and No involuntary motions. SKIN Skin color, texture, turgor normal, no suspicious rashes or lesions ASSESSMENT/PLAN: 1. Malignant neoplasm of upper-outer quadrant of right breast in female, estrogen receptor positive (HCC) - ICD9: 174.4, V86.0, ICD10: C50.411, Z17.0 ER/NJ positive pT1b, N0, intermediate risk score on Oncotype DX. S/p R mastectomy. Received TC with no delays. - No concerning findings on exam. - Tolerating femara well. - Continue femara. Rx done. - L mammogram due in August 2022. - Follow up in 6 months. - Pt. aware to call office with any questions/concerns. The patient indicates understanding of these issues and agrees with the plan. All documentation from previous visit of 11/08/21-myself was copied and pasted, documentation has been reviewed and edited as necessary for today's visit. Miryam Ramirez APRN.CNP documented in this encounter [facility] 11-08-2021 History of Present illness Narrative Chief Complaint Patient presents with: Established Patient HPI: Natalia Leigh is a 71 year old female who presents here today for follow up breast cancer. H/o DX:Right Breast cancer-ER/NJ positive pT1b, N0, intermediate risk score on Oncotype DX. Abnormality found on screening mammogram 05/2014. MRI 07/06/14: IMPRESSION: HIGHLY SUGGESTIVE OF MALIGNANCY Biopsy of the 2 right-sided suspicious masses noted on ultrasound is suggested. Left breast enhancing focus can be followed with MRI up in 6 months. Previous right breast cancer in 1990 which was treated with breast conservation surgery by Dr. Chris Segal. S/p right mastectomy on 08/22/[address] Saba. Path: Right breast invasive ductal carcinoma. 2 separate foci. One area measures 9 mm and the other 7 mm. There is also DCIS measuring 0.1 x 0.1 x 0.1 cm. It comprises 1% of the total tumor volume. Cribriform and grade to intermediate. Surgical margins are clear. No sentinel lymph nodes were submitted but 2 lymph nodes were associated with the total mastectomy and both were negative. Estrogen receptors 90% strong. Progesterone receptor 70% strong. HER-2/mendy was 1-2+ equivocal and HER-2/mendy by fish was negative pT1b N0 Mx Received TC completed on 11/27/14. No delays. Tolerated well. Armidex began after completing chemotherapy. Transferred care to this office 2016. Stopped arimidex d/t upset stomach and hair thinning 2016 Current therapy:Femara Began 2016 Overdue for visit. Last seen December 2019. Pt. was dx with melanoma-L calf-was followed in [place]-Dr. Deng-DERM. She is followed now by Dr. Brink. Spouse has had many surgeries over past 2 years. Appetite: Good. Wt. stable. Energy level: Good. Denies fevers or recent illness. Resp:denies cough or sob Cardiac:denies chest pain/palpitations GI:denies abd pain, n/v, moving bowels regularly :denies dysuria/hematuria Extrem:b/l knee arthritis/pain-followed by Ortho, chronic low back pain Endo:denies hot flashes Neuro:denies symptoms of neuropathy Skin:denies rashes/lesions Heme:denies bleeding The ROS is otherwise negative. Past medical history, appointments, medications, allergies reviewed. No changes. EXAM: BP 161/92 Pulse 90 Temp 36.7 C (98.1 F) Wt 94.1 kg (207 lb 8 oz) SpO2 95% BMI 35.62 kg/m APPEARANCE Well appearing, alert, in no acute distress, well-hydrated, well nourished. HEART RRR with normal S1 and S2, no murmurs LUNG clear to auscultation BREAST FEMALE R mastectomy scar, no nodule L no mass/nodule LYMPH NODES No cervical lymphadenopathy, No supraclavicular lymphadenopathy and No axillary lymphadenopathy. ABDOMEN bowel sounds normoactive, soft, non-tender, non-distended, without organomegaly or palpable masses EXTREMITIES No edema NEURO Awake, alert and oriented x 3, Normal gait and No involuntary motions. SKIN Skin color, texture, turgor normal, no suspicious rashes or lesions, scar to L calf ASSESSMENT/PLAN: 1. Malignant neoplasm of upper-outer quadrant of right breast in female, estrogen receptor positive (HCC) - ICD9: 174.4, V86.0, ICD10: C50.411, Z17.0 ER/NJ positive pT1b, N0, intermediate risk score on Oncotype DX. S/p R mastectomy. Received TC with no delays. - No concerning findings on exam. - Tolerating femara well. - Reviewed L mammogram/US with pt. - Continue femara. - L mammogram due in August 2022. - Follow up in 6 months. - Pt. aware to call office with any questions/concerns. The patient indicates understanding of these issues and agrees with the plan. All documentation from previous visit of 01/06/20-myself was copied and pasted, documentation has been reviewed and edited as necessary for today's visit. Miryam Ramirez APRN.NAZARIO documented in this encounter [facility] Evaluation note There may be informa tion available, but it has not been provided by the sender. [facility] Work Phone: [facility] Diagnosis Malignant neoplasm of upper-outer quadrant of right breast in female, estrogen receptor positive (HCC)- Primary Encounter for screening mammogram for high-risk patient [facility] Diagnosis Encounter for gynecological examination (general) (routine) without abnormal findings- Primary Encounter for screening mammogram for breast cancer Mixed incontinence Mixed incontinence urge and stress (male)(female) [facility] Diagnosis Malignant neoplasm of upper-outer quadrant of right breast in female, estrogen receptor positive (HCC)- Primary [facility] available.[facility] Work Phone: Reason for referral (narrative)* Diagnostic Procedure Only (Routine) - Authorized Specialty Diagnoses / Procedures Referred By Contac t Referred To Contact [facility] Diagnoses Malignant neoplasm of upper-outer quadrant of right breast in female, estrogen receptor positive (HCC) Encounter for screening mammogram for high-risk patient Procedures CARIDAD SCREENING SCREENING MAMMOGRAPHY BI 2-VIEW BREAST INC Miryam Arzate APRN.CNP [address] [place] [address] [facility] [address] [place] [address] Referral ID Status Reason Start Date Expiration Date Visits Requested Visits Authorized [id number] Authorized Auto-Generat ed Referral 05/09/2022 06/08/2023 1 1 [facility] Chief Complaint Chief Complaint Description Start Date bilateral hand pain Preliminary chief co mplaint data, not yet signed by the author as of Advance Directives There may be information available, but it has not been provided by the sender. No Advanced Directives Records Found Family History There may be information available, but it has not been provided by the sender.No Family History Records Found Reason for Referral Specialty Diagnoses / Procedures Referred By Contac t Referred To Contact [facility] Diagnoses Mixed incontinence Procedures CONSULT TO PHYSICAL THERAPY PHYSICAL THERAPY EVALUATION HIGH COMPLEX 45 MINS Iris Ulloa MD [address] [facility] [place] [address] [facility] [place] [address] [place] [address] Referral ID Status Reason Start Date Expiration Date Visits Requested Visits Authorized [id number] Pending Review Auto-Generat ed Referral 12/22/2022 12/22/2023 1 1 Specialty Diagnoses / Procedures Referred By Contserena t Referred To Contact Diagnoses Mixed incontinence Procedures CONSULT TO URO GYNECOLOGY Iris Ulloa MD [address] [place] [address] Reshma Richard MD [address] [place] [address] Referral ID Status Reason Start Date Expiration Date Visits Requested Visits Authorized [id number] Ref Not Required PCP Requested Referral 12/22/2022 12/22/2023 1 1 Specialty Diagnoses / Procedures Referred By Contac t Referred To Contact [facility] Diagnoses Encounter for screening mammogram for breast cancer Procedures CARIDAD SCREENING SCREENING MAMMOGRAPHY BI 2-VIEW BREAST INC CAD Iris Ulloa MD [address] [place] [address] [facility] [address] [place] [address] Referral ID Status Reason Start Date Expiration Date Visits Requested Visits Authorized [id number] Pending Review Auto-Generat ed Referral 12/22/2022 01/21/2024 1 1 Summary Purpose Additional Source Comments Reason for Visit (unrecogniz ed section and content) Reason Comments Established Patient Reason Comments Established Patient Reason Comments Well Woman Urinary Incontinence Source Comments (unrecognize d section and content) In the event this informatio n is protected by the Federal Confidentiality of Alcohol and Drug Abuse Patient Records regulations: The Federal rules restrict any use of the information to criminally investigate or prosecute any alcohol or drug abuse patient.[facility] the event this information is protected by the Federal Confidentiality of Alcohol and Drug Abuse Patient Records regulations: The Federal rules restrict any use of the information to criminally investigate or prosecute any alcohol or drug abuse patient.[facility] the event this information is protected by the Federal Confidentiality of Alcohol and Drug Abuse Patient Records regulations: The Federal rules restrict any use of the information to criminally investigate or prosecute any alcohol or drug abuse patient.[facility] the event this information is protected by the Federal Confidentiality of Alcohol and Drug Abuse Patient Records regulations: The Federal rules restrict any use of the information to criminally investigate or prosecute any alcohol or drug abuse patient.[facility] Care Teams (unrecognized sec tion and content) Emergency Medicine Medical Director Relationship Specialty Start Date End Date Anderson Nicholas MD PCP - General 04/06/08 Emergency Medicine Medical Director Relationship Specialty Start Date End Date Anderson Nicholas MD PCP - General 04/06/08 Emergency Medicine Medical Director Relationship Specialty Start Date End Date Anderson Nicholas MD PCP - General 04/06/08 INFORMATION SOURCE (unrecogn ized section and content) FOR RECORDS PERTAINING TO PATIENTS WHO ARE OR HAVE BEEN ENROLLED IN A CHEMICAL DEPENDENCY/SUBSTANCEABUSE PROGRAM, SOME INFORMATION MAY BE OMITTED. This clinical summary was aggregated from multiple sources. Caution should be exercised in using it in the provision of clinical care. This summary normalizes information from multiple sources, and as a consequence, information in this document may materially change the coding, format and clinical context of patient data. In addition, data may be omitted in some cases. CLINICAL DECISIONS SHOULD BE BASED ON THE PRIMARY CLINICAL RECORDS. [facility] [employer] [facility]. provides no warranty or guarantee of the accuracy or completeness of information in this document.
[2023-06-23 07:38] LABS: Absolute Lymphocyte Count 4.23 X10^3/uL (0.83-4.51); Basophil# 0.21 X10^3/uL; Basophil% 1.6 % (0-1); Eosinophil# 0.86 X10^3/uL; Eosinophils% 6.5 % (0-5); Hematocrit 43.2 % (37-47); Hemoglobin 13.9 g/dL (12.0-15.0); Lymphocyte # 4.23 X10^3/ul (0.83-4.51); Mean Corp Hgb Conc 32.2 g/dL (32-36); Mean Corpuscular Hgb 30.1 pg (27.0-32.0); Mean Corpuscular Volume 93.5 fL (81-99); Mean Platelet Vol. 11.5 fl (6.2-12.0); Monocyte# 0.81 X10^3/uL; Monocyte% 6.1 % (0-10); NRBC Flagged by Analyzer 0 % (0-5); Neutrophil % 53.1 % (47-70); Platelet Count 452 K/mm3 (150-450); RBC Distribution Width SD 44.4 fl (35.1-43.9); Red Blood Count 4.62 M/mm3 (4.2-5.4); White Blood Count 13.2 K/mm3 (4.4-11.0)
--- NOTE | 2023-06-23 07:46 | ED.VIS.STROK ---
HPI History of Present Illness Chief Complaint: Stroke Alert Narrative Narrative: 72-year-old female presenting with altered mental status. Apparently last known well was at 0 600. Patient reportedly standing in the bathroom when this occurred. Acute onset of right-sided headache and weakness and fell to the ground hitting her head. Patient was alert and oriented but having left-sided deficits and visual loss. [facility] Medical History Gastric ulcer History of breast cancer Hypertension goal BP (blood pressure) < 150/90 Left hand weakness Lesion of right radial nerve Major depressive disorder, recurrent episode, moderate Home Medications calcium carbonate 600 mg-vitamin D3 20 mcg (800 unit) tablet 1 tablet PO DAILY@0800 08/10/14 [History Last Taken Unknown] latanoprost 0.005 % eye drops 1 drp EACH EYE QHS 08/10/14 [History Last Taken Unknown] ramipril 10 mg capsule 10 mg PO DAILY 08/10/14 [History Last Taken 08/17/14 07:00] acetaminophen 650 mg tablet,extended release (Tylenol Arthritis Pain) 650 mg PO DAILY 08/29/20 [History Last Taken Unknown] letrozole 2.5 mg tablet 2.5 mg PO DAILY 08/29/20 [History Last Taken Unknown] magnesium 250 mg tablet 250 mg PO DAILY 08/29/20 [History Last Taken Unknown] vilazodone 20 mg tablet 20 mg PO DAILY 08/29/20 [History Last Taken Unknown] melatonin 5 mg capsule 5 mg PO BID 08/30/20 [History Last Taken Unknown] omeprazole 20 mg capsule,delayed release 20 mg PO DAILY 08/30/20 [History Last Taken Unknown] meloxicam 15 mg tablet 7.5 mg (1/2 x 15 mg) PO BID #30 tabs 08/19/21 [Rx Last Taken Unknown] Allergy/AdvReac Type Severity Reaction Status Date / Time Penicillins [PCN] Allergy Severe Anaphylaxis Verified 06/23/23 07:41 bupropion [From Wellbutrin] AdvReac Unknown Weight Verified 06/23/23 07:41 Gain & Sexual Dysfunction escitalopram [From Lexapro] AdvReac Unknown Weight Verified 06/23/23 07:41 Gain & Decrease Libido venlafaxine AdvReac Unknown Nausea Verified 06/23/23 07:41 Family History Aunt Cancer Sister Cancer Social History Smoking Status: Never smoker Electronic Cigarette Use: not used second hand exposure: No alcohol intake: current alcohol intake frequency: holidays/special occasions only substance use type: does not use ROS ROS ED Constitutional Constitutional ED: Denies chills Eyes Eyes: Reports change in vision bilateral ENT ENT ED: Denies rhinorrhea or sore throat Cardiovascular Cardiovascular: Denies chest pain or palpitations Respiratory/Chest Respiratory/Chest: Denies cough or dyspnea Gastrointestinal Gastrointestinal: Denies abdominal pain Genitourinary Genitourinary ED: Denies dysuria or hematuria Integumentary Denies abscess or Abrasions Neurologic Neurologic: Reports headache(s) and paresthesias LUE Psychiatric Psychiatric: Denies anxiety or depression EXAM Physical Exam Const Vital Signs: 06/23/23 07:25 06/23/23 07:27 06/23/23 07:25 Temperature 97.9 F 97.9 F Temperature Source Temporal Temporal Pulse Rate 107 H 83 Respiratory Rate 20 H 20 H Blood Pressure 162/99 H 158/111 H Blood Pressure Mean 120 126 Blood Pressure Source Blood Pressure Position Blood Pressure Location Pulse Ox 97 100 Oxygen Delivery Method Room Air Room Air Room Air Oxygen Flow Rate (L/min) 06/23/23 07:25 06/23/23 07:48 06/23/23 07:54 Temperature 97.9 F Temperature Source Temporal Pulse Rate 79 78 78 Respiratory Rate 20 H 20 H 20 H Blood Pressure 148/122 H 140/108 H 128/99 H Blood Pressure Mean 130 118 108 Blood Pressure Source Monitor Blood Pressure Position Semi-Fowlers Blood Pressure Location Right Arm Pulse Ox 100 100 100 Oxygen Delivery Method Room Air Room Air Room Air Oxygen Flow Rate (L/min) 06/23/23 07:55 06/23/23 08:07 06/23/23 08:12 Temperature Temperature Source Pulse Rate 82 79 Respiratory Rate 20 H 20 H Blood Pressure 164/123 H 261/239 H 152/72 H Blood Pressure Mean 136 246 Blood Pressure Source Blood Pressure Position Blood Pressure Location Pulse Ox 99 99 Oxygen Delivery Method Oxygen Flow Rate (L/min) 06/23/23 07:55 06/23/23 08:09 06/23/23 08:24 Temperature 97.9 F 97.8 F Temperature Source Temporal Temporal Pulse Rate 76 77 75 Respiratory Rate 18 16 16 Blood Pressure 261/239 H 163/74 H 160/62 H Blood Pressure Mean 246 103 94 Blood Pressure Source Monitor Monitor Blood Pressure Position Semi-Fowlers Supine Blood Pressure Location Right Arm Right Arm Pulse Ox 94 88 100 Oxygen Delivery Method Nasal Cannula Nasal Cannula Nasal Cannula Oxygen Flow Rate (L/min) 3 4 4 06/23/23 08:39 06/23/23 08:54 06/23/23 09:00 Temperature 97.9 F 98 F Temperature Source Temporal Temporal Pulse Rate 76 71 75 Respiratory Rate 14 14 16 Blood Pressure 160/69 H 172/81 H 129/78 H Blood Pressure Mean 99 111 95 Blood Pressure Source Monitor Monitor Blood Pressure Position Supine Supine Blood Pressure Location Right Arm Right Arm Pulse Ox 100 100 100 Oxygen Delivery Method Nasal Cannula Nasal Cannula Nasal Cannula Oxygen Flow Rate (L/min) 4 4 4 06/23/23 09:09 06/23/23 09:24 06/23/23 09:39 Temperature 98 F 98 F 98 F Temperature Source Temporal Temporal Oral Pulse Rate 70 73 72 Respiratory Rate 14 14 14 Blood Pressure 129/78 H 124/89 H 136/99 H Blood Pressure Mean 95 100 111 Blood Pressure Source Monitor Monitor Monitor Blood Pressure Position Supine Supine Supine Blood Pressure Location Right Arm Right Arm Right Arm Pulse Ox 100 100 100 Oxygen Delivery Method Nasal Cannula Nasal Cannula Nasal Cannula Oxygen Flow Rate (L/min) 4 4 4 Positive well nourished HEENT Reports moist mucous membranes Eyes PERRL and EOMs intact bilaterally Resp normal respiratory effort Neuro Sensorium / Orientation: alert and oriented to person NIHSS NIHSS Initial: 1a Level of Consciousness: 0 1b LOC Questions (Score 2 if aphasic/stupor): 0 1c LOC Commands (Only score 1st attempt): 0 2 Best Gaze (If aphasic, use reflexive mvmts.): 1 3 Visual: 1 4 Facial Palsy: 1 5 Motor Arm Right (UN = amputation/fusion): 0 5 Motor Arm Left: 1 6 Motor Leg Right: 0 6 Motor Leg Left: 0 7 Limb ataxia (Only + if out of proportion): 1 9 Best Language: 3 10 Dysarthria (mute, coma=2, intubated=UN): 0 11 Extinction and Inattention (only scored if +): 1 Total Score: 9 MDM MDM MDM Narrative Medical decision making narrative: Presenting with strokelike symptoms. NIH stroke scale score of 9. She was taken immediately to CT where was noted she does not have an acute renal hemorrhage. [facility] beamed in was determined by myself and [facility] stroke neurologist that we would give tenecteplase after reviewing her CT and CTA which showed an M2 vessel occlusion on the right. The plan is for transport to [facility] after this. This was discussed with the family at length and they do not have any further questions. Tenecteplase was given. Initially reported that the patient had some increasing sensation on the left side of her body. Attempted to call [facility] over though not flying due to weather. I am told physicians ambulance is an hour away and this is the fastest we can get a squad. At 8:50 AM the patient started having acute headache symptoms and worsening neurologic deficits and was taken immediately to CT scanner. CBC thus far showed a white blood cell count of 13.2. Hemoglobin of 13.9. Platelets of 452. Creatinine 1.25. GFR 44. High-sensitivity troponin 13. EKG on my interpretation shows sinus rhythm at 77 bpm without sign of ischemia. CT of the brain obtained and interpreted by radiology was concerning for either hemorrhagic transformation of previous stroke versus contrast causing this to be artifactual. Discussed with on-call neurology at [facility] and they reviewed the images and stated that it looked more like contrast. We discussed the patient's clinical symptoms and her headache is currently improved and her NIH stroke scale score is stable around 9 or 10. Vital signs are stable. She recommended that we continue transportation attempts. I am told that the patient was picked up at 9:45 AM. Discussed again with family who feels that she has been about the same. Will await transport. Impression: 1. Acute right M2 occlusion 2. Hemorrhagic conversion of right M2 occlusion Lab Data Attestation: I reviewed the patient's lab results. Labs: Laboratory Results - last 24 hr 06/23/23 07:25 WBC 13.2 H RBC 4.62 Hgb 13.9 Hct 43.2 MCV 93.5 MCH 30.1 MCHC 32.2 RDW Std Deviation 44.4 H RDW Coeff of Kenisha 13.0 Plt Count 452 H MPV 11.5 Immature Gran % (Auto) 0.700 Neut % (Auto) 53.1 Lymph % (Auto) 32.0 [place] % (Auto) 6.1 Eos % (Auto) 6.5 H Baso % (Auto) 1.6 H Absolute Neuts (auto) 7.0 Absolute Lymphs (auto) 4.23 Nucleated RBC % 0 PT 13.0 INR 1.0 APTT 29.0 Sodium 143 Potassium 3.9 Chloride 110 H Carbon Dioxide 24.0 Anion Gap 9 BUN 21 H Creatinine 1.25 H Estim Creat Clear Calc 43.75 Est GFR (MDRD) Af Amer 54 L Est GFR (MDRD) Non-Af 44 L BUN/Creatinine Ratio 16.8 Glucose 148 H Calcium 10.8 H Troponin I High Sens 13 Radiography Diagnostic Testing: Clinical Impression(s) from Imaging Studies Brain CT 06/23/23 07:25 IMPRESSION: No intracranial hemorrhage. Moderate patchy periventricular and subcortical hypodense chronic small vessel white matter ischemic change which limits sensitivity for small ischemic strokes. MRI could further evaluate as clinically indicated. Electronically Signed: Bret Villar MD at 7:46 EST , ADDENDUM: 06/23/23 0755 IMPRESSION: No intracranial hemorrhage. Moderate patchy periventricular and subcortical hypodense chronic small vessel white matter ischemic change which limits sensitivity for small ischemic strokes. MRI could further evaluate as clinically indicated. N.B. : The above Results were Read Back by Bret Villar MD to Cristian Liu DO, and understanding confirmed on 06/23/2023 07:48:24 (ET). Electronically Signed: Bret Villar MD at 7:46 EST , Chest X-Ray 06/23/23 07:25 IMPRESSION: Mild left basilar atelectasis. 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 N.B. : The above Results were Read Back by Dilma Magana MD to Cristian Liu DO, and understanding confirmed on 06/23/2023 08:14:44 (ET). 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 N.B. : The above Results were Read Back by Dilma Magana MD to Cristian Liu DO, and understanding confirmed on 06/23/2023 08:14:44 (ET). Electronically Signed: Dilma Magana MD at 8:14 EST , Brain CT 06/23/23 08:50 IMPRESSION: Acute right temporoparietal infarct with trace hemorrhagic transformation versus artifact from recent CTA. Chronic involutional and white matter changes. Left scalp contusion. Electronically Signed: Dilma Magana MD at 9:10 EST , ADDENDUM: 06/23/23 0919 IMPRESSION: Acute right temporoparietal infarct with trace hemorrhagic transformation versus artifact from recent CTA. Chronic involutional and white matter changes. Left scalp contusion. N.B. : The above Results were Read Back by Dilma Magana MD to Cristian Liu MD, and understanding confirmed on 06/23/2023 09:12:46 (ET). 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, Discussing w/Consultants, Arranging Admission or Transfer and Performing Direct Patient Care at Bedside Discharge Plan Triage Chief Complaint: Stroke Alert ED Provider: Cristian Liu Dx/Rx/DC Orders Prescriptions: No Action vilazodone 20 mg tablet 20 mg PO DAILY magnesium 250 mg tablet 250 mg PO DAILY letrozole 2.5 mg tablet 2.5 mg PO DAILY acetaminophen [Tylenol Arthritis Pain] 650 mg tablet extended release 650 mg PO DAILY omeprazole 20 mg capsule,delayed release(DR/EC) 20 mg PO DAILY melatonin 5 mg capsule 5 mg PO BID meloxicam 15 mg tablet 7.5 mg PO BID Qty: 30 4RF ramipril 10 MG capsule 10 mg PO DAILY Patient Comments: BP calcium carbonate-vitamin D3 1 TAB tablet 1 tablet PO DAILY@0800 Patient Comments: supplement latanoprost 1 DROP bottle 1 drp EACH EYE QHS Patient Comments: GLAUCOMA Primary Care Provider: Bo Nicholas Referrals: Bo Nicholas MD [Primary Care Provider] - Capacity Legal Liquor Store Manager Reflex Medical hold order details:: IF a medical hold is selected below, a suggested order for a MEDICAL HOLD will reflex upon signing the document. Next of kin: [place] law dictates a PRIORITY LIST for identifying legal decision-maker/legal next of kin in the following order (LNOK): 1st: The patient?s legal guardian, if any 2nd: The patient's spouse (if status is questionable, consult Risk Management) 3rd: The patient?s adult child(radha) (majority, if multiple children) 4th: The patient?s parents 5th: The patient?s adult siblings (majority, if multiple children siblings)
[2023-06-23] MEDS: Ondansetron 4 MG/2 ML Vial IV (07:54)
[2023-06-23 07:55] LABS: Anion Gap 9 (5-15); BUN 21 mg/dL (7-18); BUN/Creat Ratio 16.8 RATIO (10-20); Calcium,Total 10.8 mg/dL (8.5-10.1); Chloride 110 mmol/L (98-107); Creatinine, Serum 1.25 mg/dL (0.55-1.02); EST Glomerular Filtration Rate 44 mL/min (>60); Est Glom Filt Rate - Afr Amer 54 mL/min (>60); Estimated Creatinine Clearance 43.75 ml/min; Glucose 148 mg/dL (74-106); Potassium 3.9 mmol/L (3.5-5.1); Sodium Level 143 mmol/L (136-145); Troponin-I HS 13 pg/mL (3.0-54.0)
[2023-06-23] MEDS: 0.9% Saline Lock 10 ML Syringe IV ×2 (08:01→08:13)
[2023-06-23] MEDS: Labetalol (Prefilled) 20 MG/4 ML IV (08:09)
--- NOTE | 2023-06-23 08:09 | ED.RN ---
TNK DELAYED D/T INCREASING BP. LABETOLO GIVEN.
[2023-06-23] MEDS: TENECTEPLASE 3369.59999999999991 MG IV (08:12)
[2023-06-23] MEDS: 0.9% Normal Saline (1000mL) 1,000 ML 100 ML IV (08:25)
--- NOTE | 2023-06-23 08:29 | ED.RN ---
regular nih charting completed. moved to post thrombolytic nih charting
--- NOTE | 2023-06-23 08:30 | NURSING ---
ATTEMPTING TO FIND A TRUCK TO TRANSPORT [facility] TO [facility]
[2023-06-23] MEDS: Metoclopramide 10 MG/2 ML Vial IV (08:34)
--- NOTE | 2023-06-23 08:46 | NURSING ---
[facility] SHOULD BE HERE WITHIN THE HOUR
--- NOTE | 2023-06-23 08:50 | CT_ITS ---
We are attempting to reach an attending provider to discuss findings. An addendum with communication details will be sent when the communication is complete. HISTORY: headache. TECHNIQUE: Multiple axial images were obtained of the head without intravenous contrast. A radiation dose optimization technique was used for this scan. 253 images. COMPARISON: 07:27. FINDINGS: BRAIN PARENCHYMA: Mild-moderate zone of low attenuation in the right parietal and temporal lobes. Trace hyperdensity in the right parietal and left temporal lobes. Multiple foci and zones of low attenuation in the bilateral cerebral white matter compatible with chronic small vessel ischemic gliosis. CSF SPACES: Generalized volume loss. No midline shift or other significant mass effect. No acute extra-axial hemorrhage seen with residual contrast in the intracranial vessels from prior CTA. OTHER: Intact calvarium. Left scalp contusion. No significant air fluid levels in the paranasal sinuses or mastoid air cells. Unremarkable orbits. CT/Brain/Head without Contrast IMPRESSION: Acute right temporoparietal infarct with trace hemorrhagic transformation versus artifact from recent CTA. Chronic involutional and white matter changes. Left scalp contusion. Electronically Signed: Dilma Magana MD at 9:10 EST ,
--- NOTE | 2023-06-23 08:51 | ED.RN ---
pt suddenlty complains of severe increasing headache. pt becomes very agitated. pt to ct stat for repeat ct
--- NOTE | 2023-06-23 09:18 | ED.RN ---
PT HEADACHE REMAINS A 5. DR ESCOBAR IN TO TALK WITH PT AND FAMILY. UNSURE IF RESIDUAL DYE OR CONVERSION TO HEMIMORAGIC STROKE
== END 2023-06-23 10:09 | disposition short-term general hospital (02) ==
PROVIDERS: Emergency Provider Student in an Organized Health Care Education/Training Program; PCP Family Medicine; Visit Provider Student in an Organized Health Care Education/Training Program
DX: I66.01 Occlusion and stenosis of right middle cerebral artery (principal); R41.82 Altered mental status, unspecified; R51.9 Headache, unspecified; I10 Essential (primary) hypertension; I65.21 Occlusion and stenosis of right carotid artery
CPT/HCPCS: 70450; 70496; 70498; 71045; 80048; 84484; 85025; 85610; 85730; 93005; 96360; 96361; 96374; 96375; 99285; J3101; J7030; Q9967; A4216; J2405

== ENCOUNTER 2023-07-06 18:00 | Inpatient (IN) | payer MEDICARE, SELFPAY ==
--- OUTSIDE RECORDS SUMMARY | 2023-07-06 18:16 | XMS RPT_ITS | CCD ---
Author Name Unknown Address [address] [place] [address] Organization [facility] Care Team Providers Care Novelty Chain Maker Name Role Phone Viridiana Jackson LPN Unavailable Viridiana Jackson LPN Unavailable [phone] Wandy Oliveira MD Unavailable Anderson Nicholas MD Primary Care Provider Anderson Nicholas MD Primary Care Provider [phone] Anderson Nicholas MD Primary Care Provider [phone] MIRYAM RAMIREZ Referring Unavailable MIRYAM RAMIREZ Attending Unavailable CASSIE, ANDERSON A Primary Care Unavailable CASSIE ANDERSON A Primary Care Unavailable IRIS ULLOA Attending Unavailable MIRYAM RAMIREZ Referring Unavailable MIRYAM RAMIREZ Attending Unavailable CASSIE, ANDERSON A Primary Care Unavailable CASSIE ANDERSON A Primary Care Unavailable TAWNY JIMENEZ Admitting Unavailable JIMBO ESCOBAR JR. Referring Unavailabl e CONSULT, SURGERY - NEURO Consulting Unavail able BOBBY LICEA Attending Unavailable NICHOLAS, ANDERSON A Primary Care Unavailable YASSINE DYER Referring Unavailable Allergies Allergy Classification Reported Allergen(s) Allergy Type Date of Onset Reaction(s) Facility (2 sources) PENCILLIN drug allergy 5 [facility] Work Phone: (1 source) Penicillin G Drug Allergy 1 [facility] Work Phone: (2 sources) Penicillins; Translations: [PENICILLINS] Propensity to adverse reactions 6 [facility] Work Phone: (3 sources) Penicillins Propensity to adverse reactions 6 [facility] Work Phone: (3 sources) buPROPion; Translations: [BUPROPION] Drug Allergy 3 Swelling [facility] Medications Completed/Discontinued Medications Medication Drug Class(es) Dates Sig (Normalized) Sig (Original) Acetaminophen (4 sources) End: 05-15-2023 take 1 tablet by mouth once daily acetaminophen (TYLENOL ARTHRITIS ORAL) Take 1 tablet by mouth once daily. 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] Onset: 06-23-2023 Chronic Cancer of breast (19 sources) Carcinoma in [...] 09:27-0500 Body height 161 cm Miryam Ramirez APRN.CNP Work Phone: [facility] 05-15-2023 09:27-0500 Body temperature 97.7 [degF] Miryam Ramirez APRN.CNP Work Phone: [facility] 05-15-2023 09:27-0500 Body weight 90.27 kg Miryam Ramirez APRN.CNP Work Phone: [facility] 05-15-2023 09:27-0500 Diastolic blood pressure 80 mm[Hg] Miryam Ramirez APRN.CNP Work Phone: [facility] 05-15-2023 09:27-0500 Heart rate 91 /min Miryam Ramirez SPINNING MACHINE OPERATOR.RULING MACHINE FEEDER Work Phone: [facility] 05-15-2023 09:27-0500 SaO2% (BldA) [Mass fraction] 92 % Miryam Ramirez SPINNING MACHINE OPERATOR.RULING MACHINE FEEDER Work Phone: [facility] 05-15-2023 09:27-0500 Systolic blood pressure 141 mm[Hg] Del Rey Ramirez SPINNING MACHINE OPERATOR.RULING MACHINE FEEDER Work Phone: [facility] 12-22-2022 09:27-0400 Body height 160 cm Iris Ulloa MD Work Phone: [facility] 12-22-2022 09:27-0400 Body weight 89.54 kg Iris Ulloa MD Work Phone: [facility] 12-22-2022 09:27-0400 Diastolic blood pressure 70 mm[Hg] Iris Ulloa MD Work Phone: [facility] 12-22-2022 09:27-0400 Systolic blood pressure 110 mm[Hg] Iris Ulloa MD Work Phone: [facility] 05-09-2022 09:10-0500 Body height 161.5 cm Miryam Ramirez SPINNING MACHINE OPERATOR.RULING MACHINE FEEDER Work Phone: [facility] 05-09-2022 09:10-0500 Body temperature 97.81 [degF] Del Rey Ramirez SPINNING MACHINE OPERATOR.RULING MACHINE FEEDER Work Phone: [facility] 05-09-2022 09:10-0500 Body weight 91.85 kg Del Rey Ramirez SPINNING MACHINE OPERATOR.RULING MACHINE FEEDER Work Phone: [facility] 05-09-2022 09:10-0500 Diastolic blood pressure 81 mm[Hg] Del Rey Ramirez SPINNING MACHINE OPERATOR.RULING MACHINE FEEDER Work Phone: [facility] 05-09-2022 09:10-0500 Heart rate 89 /min Miryam Ramirez SPINNING MACHINE OPERATOR.RULING MACHINE FEEDER Work Phone: [facility] 05-09-2022 09:10-0500 SaO2% (BldA) [Mass fraction] 96 % Miryam Ramirez SPINNING MACHINE OPERATOR.RULING MACHINE FEEDER Work Phone: [facility] 05-09-2022 09:10-0500 Systolic blood pressure 156 mm[Hg] Miryam Ramirez SPINNING MACHINE OPERATOR.RULING MACHINE FEEDER Work Phone: [facility] 11-08-2021 09:24-0400 Body temperature 98.1 [degF] Miryam Hansenenter SPINNING MACHINE OPERATOR.RULING MACHINE FEEDER Work Phone: [facility] 11-08-2021 09:24-0400 Body weight 94.12 kg Miryam Ramirez SPINNING MACHINE OPERATOR.RULING MACHINE FEEDER Work Phone: [facility] 11-08-2021 09:24-0400 Diastolic blood pressure 92 mm[Hg] Miryam Hansenenter SPINNING MACHINE OPERATOR.RULING MACHINE FEEDER Work Phone: [facility] 11-08-2021 09:24-0400 Heart rate 90 /min Miryam Ramirez SPINNING MACHINE OPERATOR.RULING MACHINE FEEDER Work Phone: [facility] 11-08-2021 09:24-0400 SaO2% (BldA) [Mass fraction] 95 % Miryam Ramirez SPINNING MACHINE OPERATOR.RULING MACHINE FEEDER Work Phone: [facility] 11-08-2021 09:24-0400 Systolic blood pressure 161 mm[Hg] Miryam Hansenenter SPINNING MACHINE OPERATOR.RULING MACHINE FEEDER Work Phone: [facility] 10-12-2016 09:42-0400 BMI (Body Mass Index) 34.69 kg/m2 Viridiana Jackson LPN [facility] Work Phone: 10-12-2016 09:42-0400 Body Temperature 98.1 [degF] Viridiana Jackson LPN [facility] Work Phone: 10-12-2016 09:42-0400 BP Diastolic 82 mm[Hg] Viridiana Jackson LPN [facility] Work Phone: 10-12-2016 09:42-0400 BP Systolic 130 mm[Hg] Viridiana Jackson LPN [facility] Work Phone: 10-12-2016 09:42-0400 Height 161.29 cm Viridiana Jackson LPN [facility] Work Phone: 10-12-2016 09:42-0400 Pulse (Heart Rate) 92 /min Viridiana Jackson LPN [facility] Work Phone: 10-12-2016 09:42-0400 Pulse Oximetry 98 % Viridiana Jackson LPN [facility] Work Phone: 10-12-2016 09:42-0400 Respiratory Rate 14 /min Viridiana Jackson LPN [facility] Work Phone: 10-12-2016 09:42-0400 Weight 90.27 kg Viridiana Jackson LPN [facility] Work Phone: 03-17-2016 14:19-0400 Body Temperature 98.2 [degF] Viridiana Jackson LPN [facility] Work Phone: 03-17-2016 14:19-0400 BSA (Body Surface Area) 1.99 m2 Viridiana Jackson LPN [facility] Work Phone: 03-17-2016 14:19-0400 Height 161.29 cm Viridiana Jackson LPN [facility] Work Phone: 03-17-2016 14:19-0400 Weight 95.36 kg Viridiana Jackson LPN [facility] Work Phone: NEGATED: Highlighted [id number] 11:56-0400 Body height 162.56 cm Viki Ziats AT [facility] Work Phone: NEGATED: Highlighted [id number] 11:56-0400 Body height 163 cm Viki Ziats AT [facility] Work Phone: NEGATED: Highlighted [id number] 11:56-0400 Body mass index (BMI) [Ratio] 34.45 kg/m2 Viki Ziats AT [facility] Work Phone: NEGATED: Highlighted [id number] 11:56-0400 Body weight 90.72 kg Viki Ziats AT [facility] Work Phone: NEGATED: Highlighted [id number] 11:56-0400 Body weight 91 kg Viki Lara AT [facility] Work Phone: Encounters Encounter Date Encounter Type Care Provider Facility Start: 06-23-2023 Evaluation and management of inpatient ANDERSON Yvrose YUMA Facility:[facility] Start: 06-23-2023 Evaluation and management of inpatient ANDERSON A YUMA Facility:[facility] Start: 05-15-2023 End: 05-15-2023 ambulatory [facility] Facility:[facility] Start: 05-15-2023 End: 05-15-2023 ambulatory [facility] SPINNING MACHINE OPERATOR.RULING MACHINE FEEDER Work Phone: Hematology/Oncology Procedures Date Procedure Procedure Detail Performing Clinician Start: 07-02-2023 Antibody screen ANDERSON SM ITH Plan of Treatment Date Care Activity Detail Author Start: 04-14-2033 Urine microalbumin profile DTaP,Tdap,Td Vaccine (2 - Td or Tdap) [facility] Start: 02-06-2023 Influenza vaccination INFLUENZA (#1) [facility] Start: 12-22-2022 End: 02-21-2023 Bacteria identified in Urine by Culture URINE CULTURE Microbiology Routine Mixed incontinence Expected: 12/22/2022, Expires: 02/21/2023 [facility] Work Phone: Immunizations Immunization Date Immunization Notes Care Provider Yovani montero 04-12-2012 influenza virus vacc ine, unspecified formulation Miryam Ramirez SPINNING MACHINE OPERATOR.RULING MACHINE FEEDER Work Phone: [facility] Payers Date Payer Category Payer Medicare AETNA MEDICARE A ETNA MEDICARE PPO [id number] 2021-Present [phone] [address] [place] [address] PPO [id number] 2021 Medicare AETNA MEDICARE A ETNA MEDICARE PPO [id number] 2021-Present [phone] [address] [place] [address] PPO [id number] 2021 Medicare [id number] 1950 Unknown [id number] 1950 Unknown [id number] Social History Date Type Detail Facility Start: 09-06-2021 End: 09-06-2021 Assertion Unknown if ever smoked [facility] Work Phone: Start: 04-10-2011 Tobacco smoking stat [facility] Never smoked tobacco [facility] Start: 11-08-2021 End: 05-15-2023 Alcohol intake Current drinker of alcohol (finding) [facility] Start: 04-06-2008 History SDOH Alcohol Comment Seldom [facility] Start: 1950 Sex Assigned At Not on file [facility] Start: 10-14-2021 End: 10-24-2021 Exposure to SARS-CoV-2 (event) Not sure [facility] Start: 04-10-2011 Tobacco use and exposure Smokeless tobacco non-user [facility] Start: 11-14-2022 End: 12-22-2022 History of Social function [facility] Start: 11-14-2022 End: 12-22-2022 Tobacco use panel [facility] Adult Depression Screening Assessment 4 [facility] Clinical Notes 11-08-2021 to 05-15-2023 Miryam Ramirez APRN.RULING MACHINE FEEDER - 05/15/2023 9:40 AM Iris Ashley MD - 12/22/2022 9:12 AM EDTMiryam Ramirez APRN.RULING MACHINE FEEDER - 05/09/2022 9:13 AM Virgilio Ramirez APRN.CNP - 11/08/2021 9:25 AM EDT Note Date & Type Note Facility 05-15-2023 Note HNO ID: [id number] Author: Miryam Ramirez APRN.NAZARIO Service: ? Author Type: Nurse Practitioner Type: Progress Notes Filed: 05/15/2023 12:17 PM Note Text: Chief Complaint Patient presents with: Established Patient HPI: Natalia Leigh is a 72 year old female who presents here today for follow up breast cancer. H/o DX:Right Breast cancer-ER/LA positive pT1b, N0, intermediate risk score on [...] low back pain-followed by pain mgmt. [facility]. Receives inj. to both. Endo:denies hot [...] - ICD9: 174.4, V86.0, ICD10: C50.411, Z17.0 ER/LA positive pT1b, N0, intermediate risk score on [...] as necessary for today's visit. Miryam Ramirez APRN.[facility] 05-15-2023 History of Present illness Narrative Chief Complaint Patient presents with: Established Patient HPI: Natalia Leigh is a 72 year old female who presents here today for follow up breast cancer. H/o DX:Right Breast cancer-ER/LA positive pT1b, N0, intermediate risk score on [...] - ICD9: 174.4, V86.0, ICD10: C50.411, Z17.0 ER/LA positive pT1b, N0, intermediate risk score on [...] as necessary for today's visit. Miryam Ramirez APRN.RULING MACHINE FEEDER documented in this encounter [facility] 12-22-2022 Note HNO ID: [id number] Author: Iris Ulloa MD Service: ? Author Type: Physician Type: Progress Notes Filed: 12/22/2022 12:33 PM Note Text: Assembly Hand offered: Patient declines. Natalia is a 72 [...] Multiple0 Live Births0 Comment: One daughter is Forge Operator Helper History LMP: Postmenopausal Age at Menarche: Age at First : Age at Menopause: Forge Operator Helper History Comments: Sexual Activity: Yes; Male Contraception: [...] Procedure Laterality Date BMD APPENDICULAR (ENDOCRIN)_*FL BONE [id number] BX BREAST W/DEVICE 1ST LESION ULTRASOUND GUID [...] RIGHT BREAST LUMPECTOMY PAST SURGICAL HISTORY OF [place] x 4 PAST SURGICAL HISTORY OF 2020 nerve surgery PAST SURGICAL HISTORY OF 2019 melanoma removed from left leg TONSILLECTOMY AND ADENOIDECTOMY FAMILY HISTORY Problem Relation Age of Onset Heart Mother PASSED FROM [facility] CO Hypertension Mother Cancer Father PASSED FROM [facility] Alcohol/Drug Father Breast Cancer Sister PASSED Cancer [...] external genitalia normal, normal Bartholin's glands, urethra, Payneway's glands, no vulvar lesions, no cervical lesions, [...] or sooner as needed Iris Ulloa DO [facility] 12-22-2022 History of Present illness Narrative Assembly Hand offered: Patient declines. Natalia is a 72 [...] Multiple0 Live Births0 Comment: One daughter is Forge Operator Helper History LMP: Postmenopausal Age at Menarche: Age at First : Age at Menopause: Forge Operator Helper History Comments: Sexual Activity: Yes; Male Contraception: [...] Procedure Laterality Date BMD APPENDICULAR (ENDOCRIN)_*FL BONE [id number]/98 BX BREAST W/DEVICE 1ST LESION ULTRASOUND GUID [...] RIGHT BREAST LUMPECTOMY PAST SURGICAL HISTORY OF [place] x 4 PAST SURGICAL HISTORY OF 2020 nerve surgery PAST SURGICAL HISTORY OF 2019 melanoma removed from left leg TONSILLECTOMY & ADENOIDECTOMY <AGE 10 FAMILY HISTORY Problem Relation Age of Onset Heart Mother PASSED FROM [facility] Hypertension Mother Cancer Father PASSED FROM [facility] Alcohol/Drug Father Breast Cancer Sister PASSED Cancer [...] external genitalia normal, normal Bartholin's glands, urethra, Payneway's glands, no vulvar lesions, no cervical lesions, [...] one year or sooner as needed Iris Ulloa, documented in this encounter [facility] 11-14-2022 Note HNO ID: [id number] Author: Miryam Ramirez APRN.RULING MACHINE FEEDER Service: ? Author Type: Nurse Practitioner Type: Progress Notes Filed: 11/14/2022 3:29 PM Note Text: Chief Complaint Patient presents with: Established Patient HPI: Natalia Leigh is a 72 year old female who presents here today for follow up breast cancer. H/o DX:Right Breast cancer-ER/LA positive pT1b, N0, intermediate risk score on [...] - ICD9: 174.4, V86.0, ICD10: C50.411, Z17.0 ER/LA positive pT1b, N0, intermediate risk score on Oncotype DX. S/p R mastectomy. Received TC with no delays. - No concerning findings on exam. - Tolerating femara well. - Continue femara. - L mammogram due in August 2022. - Needs IT PROJECT LEAD appt.-est. care-Urinary incont.-last pelvic exam years ago by Hina Sky. - Follow up in 6 months. - Pt. aware to call office with any questions/concerns. The patient indicates understanding of these issues and agrees with the plan. All documentation from previous visit of 11/08/21-myself was copied and pasted, documentation has been reviewed and edited as necessary for today's visit. Miryam Ramirez APRN.[facility] 05-09-2022 History of Present illness Narrative Chief Complaint Patient presents with: Established Patient HPI: Natalia Leigh is a 71 year old female who presents here today for follow up breast cancer. H/o DX:Right Breast cancer-ER/LA positive pT1b, N0, intermediate risk score on [...] - ICD9: 174.4, V86.0, ICD10: C50.411, Z17.0 ER/LA positive pT1b, N0, intermediate risk score on [...] Miryam Ramirez APRN.NAZARIO documented in this encounter [facility] 11-08-2021 History of Present illness Narrative Chief Complaint Patient presents with: Established Patient HPI: Natalia Leigh is a 71 year old female who presents here today for follow up breast cancer. H/o DX:Right Breast cancer-ER/LA positive pT1b, N0, intermediate risk score on [...] was dx with melanoma-L calf-was followed in [place]-Dr. Deng-DERM. She is followed now by Dr. [...] - ICD9: 174.4, V86.0, ICD10: C50.411, Z17.0 ER/LA positive pT1b, N0, intermediate risk score on [...] Miryam Ramirez APRN.NAZARIO documented in this encounter [facility] Evaluation note There may be informa tion available, but it has not been provided by the sender. [facility] Work Phone: [facility] encounter [facility] Diagnosis Malignant neoplasm of upper-outer quadrant of right breast in female, estrogen receptor positive (HCC)- Primary Encounter for screening mammogram for high-risk patient documented [facility] encounter [facility] Diagnosis Encounter for gynecological examination (general) (routine) without abnormal findings- Primary Encounter for screening mammogram for breast cancer Mixed incontinence Mixed incontinence urge and stress (male)(female) documented [facility] encounter [facility] Diagnosis Malignant neoplasm of upper-outer quadrant of right breast in female, estrogen receptor positive (HCC)- Primary documented in this encounter [facility]InstructionsNo information available.[facility] Work Phone: Reason for referral (narrative)* Diagnostic Procedure Only (Routine) - Authorized Specialty Diagnoses / Procedures Referred By Shruthi calderón Referred To Contact [facility] Diagnoses Malignant neoplasm of upper-outer quadrant of right breast in female, estrogen receptor positive (HCC) Encounter for screening mammogram for high-risk patient Procedures CARIDAD SCREENING SCREENING MAMMOGRAPHY BI 2-VIEW BREAST INC Miryam Arzate APRN.CNP [address] [place] [place] [address] [facility] [address] [place] [address] Referral ID Status Reason Start Date Expiration Date Visits Requested Visits Authorized [id number] Authorized Auto-Generat ed Referral 05/09/2022 06/08/2023 1 1 [facility] Chief Complaint Chief Complaint Description Start Date bilateral hand pain Preliminary chief co mplaint data, not yet signed by the author as of Advance Directives There may be information available, but it has not been provided by the sender. No Advanced Directives Records FoundNo Advanced Directives Records Found Family History There may be information available, but it has not been provided by the sender.No Family History Records FoundNo Family History Records Found Reason for Referral Specialty Diagnoses / Procedures Referred By Shruthi calderón Referred To Contact [facility] Diagnoses Mixed incontinence Procedures CONSULT TO PHYSICAL THERAPY PHYSICAL THERAPY EVALUATION HIGH COMPLEX 45 MINS Iris Ulloa MD [address] [place] [address] [facility] [address] [place] [address] Referral ID Status Reason Start Date Expiration Date Visits Requested Visits Authorized [id number] Pending Review Auto-Generat ed Referral 12/22/2022 12/22/2023 1 1 Specialty Diagnoses / Procedures Referred By Contac t Referred To Contact Diagnoses Mixed incontinence Procedures CONSULT TO URO GYNECOLOGY Iris Ulloa MD [address] [facility] [place] [address] Reshma Richard MD [address] [place] [address] Referral ID Status Reason Start Date Expiration Date Visits Requested Visits Authorized [id number] Ref Not Required PCP Requested Referral 12/22/2022 12/22/2023 1 1 Specialty Diagnoses / Procedures Referred By Shruthi calderón Referred To Contact [facility] Diagnoses Encounter for screening mammogram for breast cancer Procedures CARIDAD SCREENING SCREENING MAMMOGRAPHY BI 2-VIEW BREAST INC CAD Iris Ulloa MD [address] [place] [address] [facility] [address] [place] [address] Referral ID Status Reason Start Date Expiration Date Visits Requested Visits Authorized [id number] Pending Review Auto-Generat ed Referral 12/22/2022 01/21/2024 [...] or prosecute any alcohol or drug abuse patient.[facility] the event this information is protected by the Federal Confidentiality of Alcohol and Drug Abuse Patient Records regulations: The Federal rules restrict any use of the information to criminally investigate or prosecute any alcohol or drug abuse patient.[facility] the event this information is protected by the Federal Confidentiality of Alcohol and Drug Abuse Patient Records regulations: The Federal rules restrict any use of the information to criminally investigate or prosecute any alcohol or drug abuse patient.[facility] the event this information is protected by the Federal Confidentiality of Alcohol and Drug Abuse Patient Records regulations: The Federal rules restrict any use of the information to criminally investigate or prosecute any alcohol or drug abuse patient.[facility] Care Teams (unrecognized sec tion and content) Novelty Chain Maker Relationship Specialty Start Date End Date Anderson Nicholas MD PCP - General 04/06/08 Novelty Chain Maker Relationship Specialty Start Date End Date Anderson Nicholas MD PCP - General 04/06/08 Novelty Chain Maker Relationship Specialty Start Date End Date Anderson Nicholas MD PCP - General 04/06/08 INFORMATION SOURCE (unrecogn ized section and content) DATE CREATED AUTHOR AUTHOR'S ORGANAMY ATION 07/04/2023 [facility] FOR RECORDS PERTAINING TO PATIENTS WHO ARE [...] BE BASED ON THE PRIMARY CLINICAL RECORDS. [facility] [employer] [facility]. provides no warranty or guarantee of the accuracy or completeness of information in this document.
[2023-07-06 18:17] VITALS: BP 137/72; PULSE 89; RESP 17; TEMP 36.7; O2SAT 96; BMI 32.8
--- NOTE | 2023-07-06 19:29 | RAD_ITS ---
EXAM: XR ABDOMEN, 1 VIEW CLINICAL INDICATION: Frequent liquid stool TECHNIQUE: Frontal supine view of the abdomen/pelvis. COMPARISON: No relevant prior studies available. FINDINGS: GASTROINTESTINAL TRACT: Nonspecific, nonobstructive bowel gas pattern. ORGANS: Normal as visualized. No organomegaly. No abnormal calcifications. BONES/JOINTS: Degenerative changes in the spine, SI joints, and hips. SOFT TISSUES: Bilateral tubal ligation clips present. RAD/Abdomen Single View (Portable) IMPRESSION: Nonspecific, nonobstructive bowel gas pattern. Electronically Signed: Navarro Mckeon DO at 23:11 EST ,
[2023-07-06 19:47] VITALS: BP 118/57; PULSE 118; RESP 20; TEMP 36.6; O2SAT 94
[2023-07-06 22:15] VITALS: PULSE 88
[2023-07-06 22:37] VITALS: BMI 32.7
[2023-07-06] MEDS: Latanoprost 0.005% 1 Bottle 1 DRP EACH EYE (22:45)
[2023-07-06] MEDS: QUEtiapine 25 MG Tablet 12.5 MG PO (22:46)
[2023-07-06] MEDS: levETIRAcetam 500 MG Tablet PO (22:46)
[2023-07-06] MEDS: Mirtazapine 30 MG Tablet PO (22:46)
[2023-07-06] MEDS: Meloxicam 15 MG Tablet 7.5 MG PO (22:47)
--- NOTE | 2023-07-06 23:00 | NURSING ---
Pt was unable to void on her own. PT was bladder scanned for 514ml. Per protocol pt was straight cathed for 550ml. No complaints from patient
[2023-07-07 05:49] LABS: Hematocrit 31.9 % (37-47); Hemoglobin 9.8 g/dL (12.0-15.0); Mean Corp Hgb Conc 30.7 g/dL (32-36); Mean Corpuscular Hgb 30.2 pg (27.0-32.0); Mean Corpuscular Volume 98.5 fL (81-99); Mean Platelet Vol. 10.8 fl (6.2-12.0); Platelet Count 534 K/mm3 (150-450); RBC Distribution Width CV 13.5 % (11.6-14.6); RBC Distribution Width SD 47.9 fl (35.1-43.9); Red Blood Count 3.24 M/mm3 (4.2-5.4); White Blood Count 11.2 K/mm3 (4.4-11.0)
[2023-07-07 06:21] LABS: ALB/GLOB Ratio 0.8 RATIO (0.9-2.4); AST(SGOT) 37 U/L (15-37); Alanine Aminotransfer ALT/SGPT 35 U/L (13-56); Albumin, Serum 2.7 g/dL (3.2-5.0); Alkaline Phosphatase 104 U/L (45-117); Anion Gap 3 (5-15); BUN 18 mg/dL (7-18); BUN/Creat Ratio 18.9 RATIO (10-20); Calcium,Total 10.9 mg/dL (8.5-10.1); Chloride 109 mmol/L (98-107); Creatinine, Serum 0.95 mg/dL (0.55-1.02); EST Glomerular Filtration Rate 61 mL/min (>60); Est Glom Filt Rate - Afr Amer 74 mL/min (>60); Estimated Creatinine Clearance 55.46 ml/min; Globulin 3.4 g/dL (2.2-4.2); Glucose 92 mg/dL (74-106); Magnesium 2.4 mg/dL (1.6-2.6); Phosphorus 3.8 mg/dL (2.5-4.9); Potassium 4.6 mmol/L (3.5-5.1); Protein, Total 6.1 g/dL (6.4-8.2); Sodium Level 140 mmol/L (136-145)
[2023-07-07 07:42] VITALS: BP 129/54; PULSE 80; RESP 16; TEMP 36.9; O2SAT 94
[2023-07-07] MEDS: Multivitamins,Ther W-Minerals Tablet 1 TABLET PO (08:13)
[2023-07-07] MEDS: Aspirin 81 MG TAB.CHEW PO (08:13)
[2023-07-07] MEDS: Triamcinolone Ointment 1 APPLIC TUBE TOPICAL (11:15)
[2023-07-07] MEDS: levETIRAcetam 500 MG Tablet PO ×2 (11:16→20:30)
[2023-07-07] MEDS: Lidocaine 5% Patch 1 PATCH TOPICAL (11:17)
[2023-07-07] MEDS: Pantoprazole Sodium 20 MG Tablet PO (11:18)
[2023-07-07] MEDS: VILAZODONE HYDROCHLORIDE 10 MG TABLET 40 MG PO (11:19)
[2023-07-07] MEDS: Lisinopril 5 MG Tablet PO (11:19)
[2023-07-07] MEDS: Menthol/Lanolin/Calamine/Znox 113 GM Tube 1 APPLIC TOPICAL ×2 (11:21→20:33)
[2023-07-07 12:18] VITALS: BMI 32.7
[2023-07-07] MEDS: Meloxicam 7.5 MG Tablet PO ×2 (12:33→20:30)
--- NOTE | 2023-07-07 13:17 | EX.PCM.HP.RE ---
HPI - General General Date of Admission: 07/06/23 Date of Service: 07/07/23 Chief Complaint: Post stroke debility HPI Narrative GILBERTO CAMPBELL, is a 72-year-old F with a past medical history of breast cancer (initially diagnosed 1990 with recurrence in 2014), hypertension, hyperlipidemia, depression, glaucoma, GERD and obesity who presented to the emergency department at [facility] on 06/23/2023 as a stroke alert. She had acute onset of a right-sided headache and weakness and fell to the ground in the bathroom, hitting his head. Upon arrival to the emergency department she had left-sided weakness and visual loss (left side hemianopia). NIHSS was 8. Stat noncontrast CT brain showed moderate patchy periventricular and subcortical white matter ischemic changes but no acute findings. CTA of the head and neck showed severe stenosis at the origin of the right internal carotid artery in the neck and occlusion/thrombosis in the M2 segment of the right MCA. Teleneurology was consulted and recommended TNK be given followed by transfer to [facility] for potential mechanical thrombectomy. TNK was given and she was transported to [facility] where a CT head demonstrated acute subarachnoid hemorrhage along the sylvian fissure and left parietal sulci. CT perfusion showed a mismatch volume of 8 cc with mismatch ratio of 1.2. She was deemed not to be a candidate for thrombectomy. [address] hours [address] brain showed a stable subarachnoid hemorrhage. NIHSS at presentation to [facility] was 6. On 06/28/2023 the NIHSS was 11. MRI of the brain showed a large recent infarct in the territory of the right MCA inferior division with mild local mass effect. There was focal blooming artifact in the right sylvian fissure likely representing intravascular thrombus in the right M2 segment. There was minimal petechial hemorrhage along the periphery of the infarcted territory. She was admitted to the neurointensive care with diagnoses of right MCA stroke, right M2 occlusion, acute subarachnoid hemorrhage, TBI secondary to a fall and moderate right carotid stenosis. Sherri was transferred to the acute inpt rehab unit at [facility] on 07/06/23 for 3 hours of therapy daily to restore function/independence as close as possible to her level prior to the stroke. All records from [facility] and her ER visit at [facility] were personally reviewed. She was taking Seroquel at [facility]. Review of home medications at presentation to the emergency department revealed she is chronically on mirtazapine 30 mg nightly and Vilazodone 40 mg daily. She is prescribed Diazepam #1 tab every few months by YAJAIRA Kim who works for the [employer].......I presume this is to take prior to a procedure. Significant lab included a hemoglobin A1c of 5.4, total cholesterol of 214, HDL of 51, LDL of 135 and triglycerides of 141. TTE at [facility] showed an ejection fraction of 65 to 70% with no PFO or thrombus. CT of the chest at [facility] showed an incomplete evaluation of an irregular right upper pole renal density and follow-up was recommended. Continuous EEG x 1 day was abnormal with findings consistent with a right hemispheric structural or physiologic abnormality. No seizure activity was observed. She had urine retention while at [facility] and had a Donato catheter from 06/23 to 06/27/2023. She developed excoriations in the perineum and the Donato was discontinued in favor of intermittent catheterization. She was started on Flomax. Donato was reinserted on 06/29 and then removed again on 07/02/2023. She developed a urinary tract infection and the culture grew greater than 10,000 colonies of Enterococcus faecalis and greater than 10,000 colonies of E. coli. She was treated with ciprofloxacin but, developed a rash and was transitioned to Macrobid. She was reportedly voiding spontaneously prior to discharge from [facility]. Vilazodone and Mirtazapine were held for a brief time. Mirtazapine was restarted on 06/28/2023. She started having hallucinations and the Vilazodone was also restarted. Both of these medications have serotonin activity and she is on max dose of 2 medications with serotonin activity. Hallucinations more likely due to abrupt withdrawal of a serotonergic agent. They live in a one-story house with a basement. Laundry is upstairs so no need to go to the basement. There are 4 steps to enter the house by the front door and 3 steps to enter the house in the garage. Steps have handrail. They have a tub/shower at home with no grab bars. She has had 3 children. 1 child at 1 years of age due to meconium aspiration. She had a son that at the age of 28 of unknown causes . She has a daughter still living. 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 [employer] Medical History (Updated 07/07/23 @ 18:[address] Tracey Chacon DO) Depression Gastric ulcer GERD (gastroesophageal reflux disease) Glaucoma History of breast cancer HTN (hypertension) Left hand weakness Left posterior interosseous nerve syndrome Lesion of right radial nerve Major depressive disorder, recurrent episode, moderate Obesity (BMI 30.0-34.9) Osteoarthritis Osteoporosis Tendonitis Ulnar neuropathy at elbow of left upper extremity Home Medications calcium carbonate 600 mg-vitamin D3 20 mcg (800 unit) tablet 1 tablet PO DAILY@0800 supplement 08/10/14 [History Last Taken Unknown] latanoprost 0.005 % eye drops 1 drp EACH EYE QHS Eye drops 08/10/14 [History Last Taken Unknown] acetaminophen 650 mg tablet,extended release (Tylenol Arthritis Pain) 650 mg PO DAILY pain 08/29/20 [History Last Taken Unknown] letrozole 2.5 mg tablet 2.5 mg PO DAILY Breast cancer 08/29/20 [History Last Taken Unknown] magnesium 250 mg tablet 250 mg PO DAILY supplement 08/29/20 [History Last Taken Unknown] vilazodone 20 mg tablet 40 mg PO DAILY Antidepressant 08/29/20 [History Last Taken 07/06/23] omeprazole 20 mg capsule,delayed release 20 mg PO DAILY GERD 08/30/20 [History Last Taken Unknown] meloxicam 15 mg tablet 7.5 mg (1/2 x 15 mg) PO BID Joint pain #30 tabs 08/19/21 [Rx Last Taken Unknown] alendronate 70 mg tablet mg PO Bone health 07/06/23 [History Last Taken Unknown] mirtazapine 30 mg tablet mg Sleep 07/06/23 [History Last Taken Unknown] Allergy/AdvReac Type Severity Reaction Status Date / Time Penicillins [PCN] Allergy Severe Anaphylaxis Verified 06/23/23 07:41 Family History Aunt Cancer Sister Cancer Surgical History (Updated 07/07/23 @ 18:[address] Tracey Chacon DO) History of lumpectomy of right breast History of right mastectomy Social History (Updated 07/07/23 @ 18:[address] Tracey Chacon DO) household members: spouse housing: other details: One-story house with a basement. Laundry is upstairs number of children: 1 current occupational status: retired Smoking Status: Never smoker Electronic Cigarette Use: not used second hand exposure: No alcohol intake: current alcohol intake frequency: holidays/special occasions only substance use type: does not use Vital Signs Vital Signs Vital Signs: 07/06/23 18:17 07/06/23 19:47 07/06/23 22:15 Temperature 98.1 F 98 F Temperature Source Temporal Oral Pulse Rate 89 118 H 88 Respiratory Rate 17 20 H Respiratory Effort Respiratory Depth Respiratory Pattern Blood Pressure 137/72 H 118/57 L Blood Pressure Mean 93 77 Blood Pressure Source Monitor Monitor Blood Pressure Position Semi-Fowlers Semi-Fowlers Blood Pressure Location Left Arm Left Arm Pulse Ox 96 94 Oxygen Delivery Method Room Air Room Air 07/06/23 22:00 07/07/23 07:42 Temperature 98.5 F Temperature Source Temporal Pulse Rate 80 Respiratory Rate 16 Respiratory Effort Normal Non-Labored Respiratory Depth Normal Respiratory Pattern Normal Blood Pressure 129/54 H Blood Pressure Mean 79 Blood Pressure Source Monitor Blood Pressure Position Semi-Fowlers Blood Pressure Location Left Arm Pulse Ox 94 Oxygen Delivery Method Room Air Room Air Weight Weight: 191 lb 12.835 oz Body Mass Index (BMI) 32.7 Indicators for Scoring Admitted with or Primary Diagnosis of CVA/Stroke: Yes Hx of CVA/Stroke: Yes Modified Gladys Score MRS Score at time of Evaluation: 5-Severe disability NIHSS NIHSS 1b. LOC Questions: Answers BOTH questions correctly. 1c. LOC Commands: Performs both tasks correctly. 2. Best Gaze: Normal 3. Visual: Complete hemianopia 4. Facial Palsy: Normal symmetrical movements 5a. Left Arm: Drift; arm drifts downward but doesn?t hit the bed (Has a lot of drift with the LUE - the Left arm/hand move by themselves without her trying to move or even being aware that they are moving. ) 5b. Right Arm: No drift; arm holds 90 (or 45) degrees for full 10 seconds 6a. Left Leg: Drift; leg falls by the end of 5-seconds, but does not hit bed (the left leg drifts laterally and downward but it did not hit the bed.) 6b. Right Leg: No drift; leg holds 30-degree position for full 5 seconds 7. Limb Ataxia: Absent 8. Sensory: Severe to total sensory loss; (total sensory loss in the Left leg and the Left arm. Sensation in the left face is normal. ) 9. Best Language: No aphasia; normal 10. Dysarthria: [id number] dysarthria; 11. Extinction and Inattention: Profound kassandra-inattention or extinction to more than one modality; Total: 9 Stroke Questions Stroke Team Activated: No Physical Exam Const alert, oriented x3, no apparent distress and well nourished General Appearance: cooperative and well developed HEENT normocephalic and head/scalp atraumatic Mouth: dry mucous membranes Eyes PERRL and EOMs intact bilaterally Neck supple, no JVD, No nodes and no carotid bruits General: trachea midline Resp normal respiratory effort, normal air movement and clear to auscultation bilaterally Resp Narrative: No conversational dyspnea. No cough with deep breathing. Event monitor is present on the chest. Effort and Inspection: Negative for tachypneic Cardio regular rate, regular rhythm, S1 normal heart sound, S2 normal heart sound, no murmurs, no rub and no gallops Cardio Narrative: No ectopy GI normal to inspection, nondistended, normoactive bowel sounds, soft to palpation and non-tender GI Narrative: no guarding with palpation. BS are mildly decreased. No abd bruits Extremity no calf tenderness Extremity Narrative: trace edema of the Left ankle. General Extremity: Negative for clubbing or cyanosis Skin no wounds and no jaundice General Skin Exam: no breakdown Rashes: no rashes Neuro oriented x3 and CN's II-XII intact bilaterally Coordination / Balance: [id number] test normal and [id number] test normal Speech: speech normal Gait (Neuro): unable to assess gait Sensory Exam: double simultaneous stimulation for sensation abnormal Motor Exam: no tremor and clonus absent; Negative for asterixis or fasciculations Psych cooperative and affect normal Appearance: appropriate Attitude: No agitated Thought Content: No suicidality, No homicidality, No delusion(s) and No hallucination(s) Results Lab / Micro Data 07/07/23 05:17 07/07/23 05:17 Labs: Laboratory Results - last 24 hr 07/07/23 05:17: WBC 11.2 H, RBC 3.24 L, Hgb 9.8 L, Hct 31.9 L, MCV 98.5, MCH 30.2, MCHC 30.7 L, RDW Std Deviation 47.9 H, RDW Coeff of Kenisha 13.5, Plt Count 534 H, MPV 10.8, Sodium 140, Potassium 4.6, Chloride 109 H, Carbon Dioxide 28.0, Anion Gap 3 L, BUN 18, Creatinine 0.95, Estim Creat Clear Calc 55.46, Est GFR (MDRD) Af Amer 74, Est GFR (MDRD) Non-Af 61, BUN/Creatinine Ratio 18.9, Glucose 92, Calcium 10.9 H, Phosphorus 3.8, Magnesium 2.4, Total Bilirubin 0.60, AST 37, ALT 35, Alkaline Phosphatase 104, Total Protein 6.1 L, Albumin 2.7 L, Globulin 3.4, Albumin/Globulin Ratio 0.8 L Imaging Radiology Impression KUB X-Ray 07/06/23 19:29 IMPRESSION: Nonspecific, nonobstructive bowel gas pattern. Electronically Signed: Navarro Mckeon DO at 23:11 EST , Assessment & Plan Assessment/Plan (1) Debility: (2) Ischemic cerebrovascular accident (CVA): PLAN: Due to right MCA occlusion. (3) Fall: QUALIFIERS: Encounter type: subsequent encounter Qualified Code(s): W19.XXXD - Unspecified fall, subsequent encounter (4) Closed TBI (traumatic brain injury): (5) Subarachnoid hemorrhage: PLAN: Secondary to traumatic head injury followed by TNK for acute occlusion of right MCA. (6) Acute left hemiparesis: (7) Hemianopia of left eye: (8) Alien hand syndrome: (9) Acute retention of urine: (10) History of breast cancer: PLAN[place] [address] and R mastectomy in 2014. (11) History of right mastectomy: (12) Glaucoma: (13) GERD (gastroesophageal reflux disease): (14) HTN (hypertension): (15) Depression: (16) Hyperlipidemia: (17) Cerebrovascular disease: (18) Obesity (BMI 30.0-34.9): (19) Osteoporosis: (20) Constipation: PLAN: Plan PLAN PT for gait stability OT for ADL's ST for evaluation Analgesics as needed Bowel protocol Fall precautions Assess for Anxiety/Depression GI prophylaxis with pantoprazole DVT prophylaxis with ALCIDES steiner and Yasmine. Will need to discuss with neurology if OK to use pharmacologic DVT prophylaxis since the subarachnoid hemorrhage has been stable. Follow up with Dr. Bo Nicholas, neurology following DC from [facility] AM lab including CMP, CBC, Mag and Phos - ordered Obtain Dr. Nicholas's records. Any psych consults or counselling? She tells me that she was not taking Remeron but, she came to us on both Vilazodone and Remeron. Will need to clarify this. Decrease the Vilazodone to 20 mg and continue Remeron at 30 mg. DC Diazepam. Continue the Flomax for urine retention. Check a KUB to r/o constipation as the etiology of the urine retention. Periodic voiding trials to see if she still needs a Donato. Urine in the tubing and the Donato bas is pale yellow and clear. Check a UA and urine culture if indicated. Remeron, Vilazodone and immobility all likely contribute to constipation. She is currently on senna 1 tablet p.o. twice daily and polyethylene glycol 17 g daily. Will encourage increased fluid intake. May need to increase the senna. Charges/Coding Addendum Addendum: UA shows 0 WBCs per high-power field and no bacteria. KUB shows a nonobstructive bowel gas pattern but there is a large amount of stool accumulation. Will give magnesium citrate tonight. Continue stool softeners Visit Charges Inpatient E&M: 26078 Init Hosp L3
--- NOTE | 2023-07-07 14:29 | PCM.RU.PYE ---
Admission Information Primary Diagnosis:: Post right MCA stroke debility Status Changes from Prescreening?: No changes Identified Actual Problem List:: Infection, UTI, Pain, ALteration in Cmfrt, Cognitve Impr/Memory Loss, Depression, Alteration in Sleep, Alteration in Nutrition, Mobility Impaired, Self Care Deficit, Know.Dfct/Disease Process, BP, Hypertension and Alteration-Leisure Activ. Potential Problem List:: DVT, Bleeding, Infection, UTI, Aspiration, Falls, Skin Integrity and Depression Risk of Complications DVT: ALCIDES Hose and Sequential Compression Device Bleeding: Monitor Lab Values, Nursing to Teach Precautions for anti-coagulation therapy., Wound, if applicable, to be assessed every shift. and Stroke patients assessed for lethargy or change in status. Infection: Clinical Staff to Monitor for S/S of infection: and S/S of infection include fever, redness, warmth, etc. Urinary Tract Infection: Monitor for frequency, burning, discomfort, or incontinence. and Nursing will obtain urine sample for urinalysis and C&S when ordered. Aspiration: Clinical staff will monitor for coughing, drooling, congestion., Speech will evaluate swallowing and dsyphasia. and Nursing will monitor patient swallowing during meals. Falls: Patient will be evaluated for Fall Precautions and Patient will be placed on Fall Precautions as indicated per protocol. Skin Breakdown: Nursing will assess skin daily using assessment tool. and Nursing will place on Skin Breakdown Precautions as indicated. Pain: Clinical staff will assess patient's pain level per protocol., Medications will be given, if needed, and the pain level reassessed. and Other methods: Massage, distraction, decrease stimulus, etc. used PRN. Plan of Care Patient requires physician specializing in physical medicine and rehab oversight to provide close medical supervision of rehab issues including: Pain Management, Sleep Problems, Bowel and Bladder, Medical and co-morbidity Management, DVT prophylaxis, Rehabilitation Leadership and Coordination of treatment team Patient needs Physical Therapy: For a minimum of 1 hour and At least 5 out of 7 days Patient needs Physical Therapy to improve:: Mobility, Strengthening, Transfers, Stretching, ROM, Endurance, Stairs, Gait and Balance Patient needs Occupational Therapy: For a minimum of 1 hour and At least 5 out of 7 days Patient needs Occupational Therapy to improve ADL's incl.: Eating, Grooming, Bathing, Dressing, Toileting, Toilet transfers, Community Reintegration, Higher functioning activities, Household tasks, Adaptive Equipment, Splinting and Other activities as determined Patient requires speech therapy: For a minimum of 1 hour and At least 5 out of 7 days Patient requires speech therapy for: Swallowing, Cognition, Language Skills and Compensatory Strategies Patient requires 24/ Rehabilitation Nursing for: Pain Issues, Identifying and preventing risk factors, Monitoring and reporting current medical conditions, Assisting with ambulation, transfer, and all ADL's, Teaching patients about disease process and medications, Family teaching, Providing safe environment, Bowel and Bladder Issues, Skin integrity and Medication Management Patient needs Customer Account Executive/ Case Management for: Discharge Planning, Arranging Home Equipment or Services and Family Interventions Patient needs Dietary and Nutrition Services for: Adequate Nutrition, Nutritional Supplements and Nutritional Education Goals Goals Patient will remain: free from falls Patient will perform eating at: MOD I level of assist. Patient will perform bed mobility at: MOD I level of assist. Patient will complete transfers from bed to chair at: - (CGA) Patient will ambulate: - (50 feet with least restrictive device at contact-guard assist on various surfaces to allow patient to return home with support.) Patient will complete upper body dressing at: - (Supervision) Patient will complete lower body dressing at: - (Min assist with adaptive equipment as needed) Patient will complete toilet transfer at: - (Min assist) Patient will complete toileting at: - (Min assist) Patient will complete grooming at: - (Minimal assistance while standing at the sink) Patient will achieve: - (2 steps with 1 handrail at minimal assistance to allow access to her home entrance.) Patient will have pain level of: of 3 or less Patient's skin will: remain intact Patient will receive: adequate nutrition. Discharge Planning Pt Prognosis for Sig. Practical Improv. w/in Reasonable Time: Good Estimated Length of stay (days): 28 Anticipated D/C Destination: Home w/ family or friends (and probably [facility] for the first few weeks then transitioning to OP.) Was Preadmission Assessment Accurate?: Yes
[2023-07-07 15:19] LABS: Bacteria 0 SEEN /hpf (None Seen); Mucous, Urine 0 SEEN /hpf (<or=2+); Red Blood Cells-Urine 0 SEEN /hpf (0-5); Squamous Epithelial Cells - UA 0 SEEN /hpf (5-10); White Blood Cells 0 SEEN /hpf (0-5)
[2023-07-07 15:22] LABS: Color, Urine Yellow (Yellow); Glucose, Dipstick Normal (Normal); Ketone-Dipstick Negative (Negative); Leukocyte Esterase-Dipstick Negative /ul (Negative); Nitrite-Dipstick Negative (Negative); Occult Blood-Urine Negative /ul (Negative); Protein-Dipstick Negative (Negative); Urine Bilirubin Dipstick Negative (Negative); Urine Clarity Clear (Clear); Urine Urobilinogen Normal (Normal)
--- NOTE | 2023-07-07 15:29 | NURSING ---
Verbally spoke to PCP nurse for records and she will fax them over and Dr. Chacon aware.
[2023-07-07 15:47] LABS: Amorphous Sediment 1+
[2023-07-07] MEDS: Tamsulosin HCl 0.4 MG Capsule 0.400000000000000022 MG PO (18:14)
[2023-07-07 19:56] VITALS: BP 145/62; PULSE 82; RESP 17; TEMP 36.9; O2SAT 96
[2023-07-07] MEDS: Latanoprost 0.005% 1 Bottle 1 DRP EACH EYE (20:29)
[2023-07-07] MEDS: QUEtiapine 25 MG Tablet 12.5 MG PO (20:30)
[2023-07-07] MEDS: Mirtazapine 30 MG Tablet PO (20:30)
[2023-07-07] MEDS: Magnesium Citrate 300 ML PO (20:31)
[2023-07-08 00:01] VITALS: BMI 32.7
[2023-07-08 06:37] VITALS: O2SAT 95
[2023-07-08 07:51] VITALS: BP 130/65; PULSE 84; RESP 18; TEMP 36.6; O2SAT 94
[2023-07-08] MEDS: levETIRAcetam 500 MG Tablet PO ×2 (09:16→21:22)
[2023-07-08] MEDS: Lisinopril 5 MG Tablet PO (09:16)
[2023-07-08] MEDS: Aspirin 81 MG TAB.CHEW PO (09:16)
[2023-07-08] MEDS: Meloxicam 7.5 MG Tablet PO ×2 (09:16→21:22)
[2023-07-08] MEDS: Pantoprazole Sodium 20 MG Tablet PO (09:16)
[2023-07-08] MEDS: Menthol/Lanolin/Calamine/Znox 113 GM Tube 1 APPLIC TOPICAL ×2 (09:17→21:18)
[2023-07-08] MEDS: Multivitamins,Ther W-Minerals Tablet 1 TABLET PO (09:17)
[2023-07-08] MEDS: Triamcinolone Ointment 1 APPLIC TUBE TOPICAL (09:17)
[2023-07-08] MEDS: Lidocaine 5% Patch 1 PATCH TOPICAL (09:18)
[2023-07-08] MEDS: VILAZODONE HYDROCHLORIDE 10 MG TABLET 20 MG PO (12:15)
--- NOTE | 2023-07-08 12:43 | PN_ITS ---
Subjective Subjective Afebrile VSS Maintaining appropriate oxygen saturation on RA Oral intake is poor for both fluids and food. Discussed with nursing - no problems that need addressed Reviewed the PT/OT/ST notes Medication list reviewed. All lab done yesterday was personally reviewed. UA had 0 WBCs per high-power field and no bacteria. White blood cell count is mildly increased at 11.2. Hemoglobin is 9.8, down from 13.9 on 06/23/2023. MCV and MCH are normal. Platelets are increased at 534,000. Sodium is 140 and the potassium is 4.6. The BUN is 18 with a creatinine of 0.95, down from 1.25 on 06/23/2023. Calcium is high at 10.2 and when corrected for hypoalbuminemia the Calcium is 11.2. This may explain the polyuria. Sherri tells me that she slept well last night. She tells me she has little appetite. She denies cephalgia, chest pain, shortness of breath, cough, sore throat, nausea/vomiting/abdominal pain and calf pain. Objective Data Objective Data Vital Signs: Vital Signs Temp Pulse Resp BP Pulse Ox O2 Del Method 97.8 F 84 18 130/65 H 94 Room Air 07/08/23 07:51 07/08/23 07:51 07/08/23 07:51 07/08/23 07:51 07/08/23 07:51 07/08/23 07:51 Oxygen Delivery Method Room Air Weight: 191 lb 12.835 oz Body Mass Index (BMI) 32.7 Intake & Output: Intake and Output for Last 24 Hours 07/06/23 07/07/23 07/08/23 23:59 23:59 23:59 Intake Total 1200 / 1200 Output Total 550 / 1100 2650 / 2650 650 / 650 Balance -550 / -1100 -1450 / -1450 -650 / -650 Lab / Micro Data 07/07/23 05:17 07/07/23 05:17 Labs: Laboratory Results - last 24 hr 07/07/23 15:00: Urine Color Yellow, Urine Clarity Clear, Urine pH 7.0, Ur Specific [place] 1.010, Urine Protein Negative, Urine Glucose (UA) Normal, Urine Ketones Negative, Urine Occult Blood Negative, Urine Nitrite Negative, Urine Bilirubin Negative, Urine Urobilinogen Normal, Ur Leukocyte Esterase Negative, Urine RBC 0 SEEN, Urine WBC 0 SEEN, Ur Squamous Epith Cells 0 SEEN, Amorphous Sediment 1+, Urine Bacteria 0 SEEN, Urine Mucus 0 SEEN Micro: Microbiology 07/07/23 15:00 Urine Catheter - Catheter Urine Culture - Preliminary Culture exhibits no growth. Physical Exam Const alert, oriented x3 and no apparent distress General Appearance: cooperative HEENT Mouth: dry mucous membranes Resp normal respiratory effort, normal air movement and clear to auscultation bilaterally Resp Narrative: No conversational dyspnea. No cough with deep breathing. Event monitor is present on the chest. Effort and Inspection: Negative for tachypneic Cardio regular rate, regular rhythm, no murmurs, no rub and no gallops Cardio Narrative: No ectopy GI normal to inspection, nondistended, normoactive bowel sounds, soft to palpation and non-tender GI Narrative: no guarding with palpation. BS are mildly decreased. No abd bruits Extremity no calf tenderness Extremity Narrative: trace edema of the Left ankle. Skin no wounds Rashes: no rashes Psych cooperative and affect normal Appearance: appropriate Assessment & Plan Assessment/Plan (1) Debility: (2) Ischemic cerebrovascular accident (CVA): (3) Fall: QUALIFIERS: Encounter type: subsequent encounter Qualified Code(s): W19.XXXD - Unspecified fall, subsequent encounter (4) Closed TBI (traumatic brain injury): QUALIFIERS: Encounter type: subsequent encounter Loss of consciousness presence/duration: unknown LOC status Qualified Code(s): S06.9XAD - Unspecified intracranial injury with loss of consciousness status unknown, subsequent encounter (5) Subarachnoid hemorrhage: (6) Acute left hemiparesis: (7) Hemianopia of left eye: (8) Alien hand syndrome: (9) Acute retention of urine: (10) History of breast cancer: (11) History of right mastectomy: (12) Glaucoma: (13) GERD (gastroesophageal reflux disease): (14) HTN (hypertension): (15) Depression: (16) Hyperlipidemia: (17) Cerebrovascular disease: (18) Obesity (BMI 30.0-34.9): (19) Osteoporosis: (20) Constipation: PLAN: Plan 1. Continue therapy 2. Check a PTH 3. Check a vitamin D level 4. Accurate I&O 5. Daily weights 6. Orthostatic vital signs today -mucous membranes were very dry yesterday however the Remeron and Vilazodone may contribute to this. 7. Check a Hemoccult stool in light of acute anemia. Charges/Coding Visit Charges Inpatient E&M: 67192 Subs Hosp L2
[2023-07-08 12:48] VITALS: BP 127/77; BP 134/77; PULSE 80; PULSE 81
[2023-07-08 14:59] VITALS: BMI 32.7
[2023-07-08 15:22] LABS: Vitamin D,25 Hydroxy 35.8 ng/mL
[2023-07-08 15:23] LABS: PTHIN 93.6 pg/mL (18.4-80.1)
--- NOTE | 2023-07-08 17:00 | CASEMGMT ---
Social Work SW requested pt have family provide copies of advanced directives. Pt agreed to notify . Frances Huff, [employer]
[2023-07-08] MEDS: Tamsulosin HCl 0.4 MG Capsule 0.400000000000000022 MG PO (17:31)
[2023-07-08 20:00] VITALS: BP 113/71; PULSE 96; RESP 16; TEMP 36.8; O2SAT 93
[2023-07-08 21:21] VITALS: PULSE 93; O2SAT 92
[2023-07-08] MEDS: Latanoprost 0.005% 1 Bottle 1 DRP EACH EYE (21:21)
[2023-07-08] MEDS: Senna Tablet 1 TABLET PO (21:22)
[2023-07-08] MEDS: QUEtiapine 25 MG Tablet 12.5 MG PO (21:22)
[2023-07-08] MEDS: Mirtazapine 30 MG Tablet PO (21:22)
[2023-07-09 01:20] VITALS: BMI 32.7
[2023-07-09 04:27] VITALS: BMI 32.9
[2023-07-09 06:33] VITALS: O2SAT 96
[2023-07-09 07:08] VITALS: BP 129/45; PULSE 85; RESP 17; TEMP 36.8; O2SAT 94
[2023-07-09] MEDS: levETIRAcetam 500 MG Tablet PO ×2 (08:06→22:03)
[2023-07-09] MEDS: VILAZODONE HYDROCHLORIDE 10 MG TABLET 20 MG PO (08:06)
[2023-07-09] MEDS: Lidocaine 5% Patch 1 PATCH TOPICAL (08:06)
[2023-07-09] MEDS: Pantoprazole Sodium 20 MG Tablet PO (08:06)
[2023-07-09] MEDS: Multivitamins,Ther W-Minerals Tablet 1 TABLET PO (08:07)
[2023-07-09] MEDS: Meloxicam 7.5 MG Tablet PO ×2 (08:07→22:03)
[2023-07-09] MEDS: Triamcinolone Ointment 1 APPLIC TUBE TOPICAL (08:07)
[2023-07-09] MEDS: Lisinopril 5 MG Tablet PO (08:07)
[2023-07-09] MEDS: Aspirin 81 MG TAB.CHEW PO (08:07)
[2023-07-09] MEDS: Menthol/Lanolin/Calamine/Znox 113 GM Tube 1 APPLIC TOPICAL ×2 (08:08→22:02)
[2023-07-09 08:16] VITALS: O2SAT 96
[2023-07-09 13:00] VITALS: BMI 32.9
--- NOTE | 2023-07-09 13:04 | CASEMGMT ---
Social Work IDT met with patient and then dtr via conference call for Team meeting. Discussed patient's progress in PT/OT/ST/SN. Educated to [facility] insurance with NRD 2/ and continued stay is not guaranteed with each review. Pt's goal is to make significant improvements prior to planning for DC. SW educated to DC home or SNF from . Pt was mod I prior and goal is to return closer to PLOF prior to DC. SW will continue to follow for DC planning. Requested provide copies of pt's advanced directives. Will ReTeam weekly. JUAN KamW
--- NOTE | 2023-07-09 17:07 | PCM.PROGNOTE ---
Subjective Subjective Sehrri was seen on team rounds today. Her Brendon was present in the room and her daughter Shonda participated by phone. Afebrile VSS-orthostatic vital signs were negative yesterday however the patient could only sit up, she could not stand. Maintaining appropriate oxygen saturation on RA Oral intake is poor for both food and fluids. Fluid balance on 07/07/2023 was -1450, on 07/08/2023 it was -58 and today so far it is -1560. Her weight on 06/23/2023 was 205 pounds and 14 ounces and today it is 192 pounds. Donato remains in place for urine retention. Pt has had 2 BM's since presenting to rehab. The last was on 07/07/23. Discussed with nursing - Confused at night.....tried crawling out of bed several times last night Reviewed the PT/OT/ST notes Medication list reviewed. Sherri is c/o nausea today and dizziness when sitting up and doing therapy. She is also c/o pain in the Left anterior thigh. Denies back pain. This pain is new since the fall and the stroke. She denies chest pain, shortness of breath, cough, vomiting. Hemoccult stool was negative. The overnight trending pulse ox was reviewed and is abnormal. Approximately 19% of the monitoring. The pulse ox was 89 or less. The lowest pulse ox was 75%. She had 9 desaturation events and the total time of desaturation events was 18 minutes and 18 seconds. Objective Data Objective Data Vital Signs: Vital Signs Temp Pulse Resp BP Pulse Ox O2 Del Method O2 Flow Rate 98.3 F 85 17 129/45 H 96 Room Air 0 07/09/23 07:08 07/09/23 07:08 07/09/23 07:08 07/09/23 07:08 07/09/23 08:16 07/09/23 08:16 07/08/23 21:21 FiO2 21 07/08/23 21:21 Oxygen Flow Rate (L/min) 0 Oxygen Delivery Method Room Air Weight: 192 lb 0.362 oz Body Mass Index (BMI) 32.9 Intake & Output: Intake and Output for Last 24 Hours 07/07/23 07/08/23 07/09/23 23:59 23:59 23:59 Intake Total 1200 / 1200 600 / 700 840 / 840 Output Total 2650 / 2650 650 / 1600 2400 / 2400 Balance -1450 / -1450 -50 / -900 -1560 / -1560 Lab / Micro Data 07/07/23 05:17 07/10/23 05:36 Micro: Microbiology 07/07/23 15:00 Urine Catheter - Catheter Urine Culture - Final Culture exhibits no growth. 07/09/23 03:15 Stool Stool Occult Blood (BHARAT) - Final Physical Exam Const alert and no apparent distress General Appearance: cooperative HEENT Mouth: dry mucous membranes Resp normal respiratory effort, normal air movement and clear to auscultation bilaterally Resp Narrative: No conversational dyspnea. No cough with deep breathing. Event monitor is present on the chest. Effort and Inspection: Negative for tachypneic Cardio regular rate, regular rhythm, no murmurs, no rub and no gallops Cardio Narrative: No ectopy GI normal to inspection, nondistended, normoactive bowel sounds, soft to palpation and non-tender GI Narrative: no guarding with palpation. BS are mildly decreased. No abd bruits Extremity no calf tenderness Extremity Narrative: trace edema of the Left ankle. 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 Continue therapy 2. Add neuropathic cream containing gabapentin, lidocaine and amitriptyline twice daily to the left anterior thigh for suspected manage pathic pain. Continue meloxicam. 3. Increased Seroquel to 25 mg p.o. nightly for sundowning/confusion and give it at 8 PM nightly. 4. Increase senna to 2 tablets p.o. twice daily. 5. Dulcolax 10 mg p.o. now 6. Dulcolax suppository 10 mg in the a.m. at 0600 7. discuss the results of the overnight pulse ox with the sleep lab and try and arrange a sleep study for the night she will be discharged from rehab. 8. O2 via NC anytime she is sleeping. 9. I suspect the dizziness and nausea are due to IV volume depletion. Will order IV fluids to be started today. 10. The PTH is elevated at 93.6 and she is hypercalcemic. Will discuss with endocrinology. IV fluids ordered. May need to give pamidronate if she continues to have polyuria and high calcium after she has been well hydrated. Recheck the calcium tomorrow and on Thursday after she has been hydrated. Charges/Coding Visit Charges Inpatient E&M: 22831 Subs Hosp L2
[2023-07-09] MEDS: Tamsulosin HCl 0.4 MG Capsule 0.400000000000000022 MG PO (17:39)
[2023-07-09] MEDS: 0.9% Normal Saline (1000mL) 1,000 ML 500 ML IV (18:49)
[2023-07-09] MEDS: 0.9% Saline Lock 10 ML Syringe IV (18:49)
[2023-07-09 19:26] VITALS: BP 133/62; PULSE 93; RESP 16; TEMP 36.4; O2SAT 97
[2023-07-09 19:27] VITALS: BMI 32.9
[2023-07-09] MEDS: 0.9% Normal Saline (1000mL) 1,000 ML 125 ML IV (20:49)
[2023-07-09] MEDS: Latanoprost 0.005% 1 Bottle 1 DRP EACH EYE (22:00)
[2023-07-09] MEDS: Neuropathy Pain Cream Compound 60 CLICK TUBE TOPICAL (22:01)
[2023-07-09] MEDS: QUEtiapine 25 MG Tablet PO (22:02)
[2023-07-09] MEDS: Mirtazapine 30 MG Tablet PO (22:04)
[2023-07-10] MEDS: 0.9% Normal Saline (1000mL) 1,000 ML 125 ML IV ×3 (04:49→23:29)
[2023-07-10 06:00] VITALS: BMI 32.5
[2023-07-10 06:47] LABS: Anion Gap 3 (5-15); BUN 14 mg/dL (7-18); BUN/Creat Ratio 14.2 RATIO (10-20); Calcium,Total 10.5 mg/dL (8.5-10.1); Chloride 112 mmol/L (98-107); Creatinine, Serum 0.99 mg/dL (0.55-1.02); EST Glomerular Filtration Rate 58 mL/min (>60); Est Glom Filt Rate - Afr Amer 71 mL/min (>60); Estimated Creatinine Clearance 53.25 ml/min; Glucose 86 mg/dL (74-106); Potassium 3.8 mmol/L (3.5-5.1); Sodium Level 141 mmol/L (136-145)
[2023-07-10 07:27] VITALS: BP 131/64; PULSE 79; RESP 16; TEMP 37; O2SAT 99
[2023-07-10] MEDS: Lisinopril 5 MG Tablet PO (08:01)
[2023-07-10] MEDS: Triamcinolone Ointment 1 APPLIC TUBE TOPICAL (08:01)
[2023-07-10] MEDS: Aspirin 81 MG TAB.CHEW PO (08:01)
[2023-07-10] MEDS: Lidocaine 5% Patch 1 PATCH TOPICAL (08:02)
[2023-07-10] MEDS: Pantoprazole Sodium 20 MG Tablet PO (08:02)
[2023-07-10] MEDS: VILAZODONE HYDROCHLORIDE 10 MG TABLET 20 MG PO (08:02)
[2023-07-10] MEDS: Neuropathy Pain Cream Compound 60 CLICK TUBE TOPICAL ×2 (08:03→20:34)
[2023-07-10] MEDS: levETIRAcetam 500 MG Tablet PO ×2 (08:03→20:34)
[2023-07-10] MEDS: Multivitamins,Ther W-Minerals Tablet 1 TABLET PO (08:03)
[2023-07-10] MEDS: Meloxicam 7.5 MG Tablet PO ×2 (08:03→20:34)
[2023-07-10] MEDS: Menthol/Lanolin/Calamine/Znox 113 GM Tube 1 APPLIC TOPICAL ×2 (08:04→20:34)
--- NOTE | 2023-07-10 09:26 | PN_ITS ---
Subjective Subjective Afebrile VSS-heart rate has come down with initiation of intravenous fluids. She was orthostatic this morning and the blood pressure lying down was 125/65 with a heart rate of 96 and sitting up she was 99/68 with a heart rate of 102. Maintaining appropriate oxygen saturation on RA Oral intake is. She had 50 to 74% of her supper last night and 75 to 100% of her breakfast today. Despite IV fluids fluid balance yesterday was -440 and overnight she had an additional -130. Discussed with nursing - Incontinent of stool X 3 last night. She had 10 mg of p.o. Dulcolax last night and will have a Dulcolax suppository this morning. After constipation has resolved will do a voiding trial. She refused the stool softener and the Dulcolax suppository today however she had a large stool burden on the KUB done recently and this likely contributes to the urine retention. Im explained the situation to her and she is agreeable to taking the Dulcolax suppository after she is finished with therapy today. Reviewed the PT/OT/ST notes Medication list reviewed. All lab drawn this morning was personally reviewed. Sodium is 141 and the potassium is 3.8. The BUN is 14, down from 18 yesterday and the creatinine is s table at 0.99. Calcium corrected for hypoalbuminemia is still high at 11.3. She is much more alert this AM than she has been. She is smiling and tells me that she feels more rested today. Urine in the Donato bag is pale and clear. Denies cephalgia, dizziness, chest pain, shortness of breath, cough, nausea/vomiting/abdominal pain, calf pain. Objective Data Objective Data Vital Signs: Vital Signs Temp Pulse Resp BP Pulse Ox O2 Del Method O2 Flow Rate 98.6 F 79 16 131/64 H 99 Room Air 0 07/10/23 07:27 07/10/23 07:27 07/10/23 07:27 07/10/23 07:27 07/10/23 07:27 07/10/23 07:27 07/08/23 21:21 FiO2 21 07/08/23 21:21 Oxygen Flow Rate (L/min) 0 Oxygen Delivery Method Room Air Weight: 189 lb 9.561 oz Body Mass Index (BMI) 32.5 Intake & Output: Intake and Output for Last 24 Hours 07/08/23 07/09/23 07/10/23 23:59 23:59 23:59 Intake Total 600 / 700 1960 / 1960 1000 / 1000 Output Total 650 / 1600 2400 / 3150 1130 / 1130 Balance -50 / -900 -440 / -1190 -130 / -130 Lab / Micro Data 07/07/23 05:17 07/10/23 05:36 Labs: Laboratory Results - last 24 hr 07/10/23 05:36: Sodium 141, Potassium 3.8, Chloride 112 H, Carbon Dioxide 26.0, Anion Gap 3 L, BUN 14, Creatinine 0.99, Estim Creat Clear Calc 53.25, Est GFR (MDRD) Af Amer 71, Est GFR (MDRD) Non-Af 58 L, BUN/Creatinine Ratio 14.2, Glucose 86, Calcium 10.5 H, Albumin 3.0 L Micro: Microbiology 07/07/23 15:00 Urine Catheter - Catheter Urine Culture - Final Culture exhibits no growth. 07/09/23 03:15 Stool Stool Occult Blood (BHARAT) - Final Physical Exam Const alert and no apparent distress General Appearance: cooperative HEENT Mouth: dry mucous membranes Resp normal respiratory effort, normal air movement and clear to auscultation primitivo aterally Cardio regular rate, regular rhythm, no murmurs, no rub and no gallops Cardio Narrative: No ectopy GI normal to inspection, nondistended, normoactive bowel sounds, soft to palpation and non-tender GI Narrative: no guarding with palpation. BS are mildly decreased. 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 Continue therapy 2. Continue intravenous fluids and monitor I&O and weights daily 3. Recheck BMP in the a.m. 4. Dulcolax suppository today after 3 PM 5. Voiding trial over the weekend. Charges/Coding Visit Charges Inpatient E&M: 00325 Subs Hosp L2
[2023-07-10 14:02] VITALS: BMI 32.5
[2023-07-10] MEDS: Tamsulosin HCl 0.4 MG Capsule 0.400000000000000022 MG PO (17:08)
[2023-07-10] MEDS: Bisacodyl 10 MG Suppository RC (18:43)
[2023-07-10] MEDS: QUEtiapine 25 MG Tablet PO (20:17)
[2023-07-10] MEDS: Latanoprost 0.005% 1 Bottle 1 DRP EACH EYE (20:21)
[2023-07-10] MEDS: Senna Tablet 2 TABLET PO (20:22)
[2023-07-10] MEDS: Mirtazapine 30 MG Tablet PO (20:34)
[2023-07-10 22:00] VITALS: BP 148/72; PULSE 90; PULSE 93; RESP 17; TEMP 36.8; O2SAT 93; O2SAT 94
[2023-07-10 23:00] VITALS: BMI 32.5
[2023-07-11 05:29] VITALS: BMI 33.0
[2023-07-11 07:43] VITALS: BP 149/65; PULSE 85; RESP 15; TEMP 36.4; O2SAT 94
[2023-07-11] MEDS: 0.9% Normal Saline (1000mL) 1,000 ML 125 ML IV ×2 (07:48→22:07)
[2023-07-11] MEDS: Senna Tablet 2 TABLET PO ×2 (08:15→20:31)
[2023-07-11] MEDS: Aspirin 81 MG TAB.CHEW PO (08:15)
[2023-07-11] MEDS: Multivitamins,Ther W-Minerals Tablet 1 TABLET PO (08:16)
[2023-07-11] MEDS: levETIRAcetam 500 MG Tablet PO ×2 (08:16→20:30)
[2023-07-11] MEDS: Meloxicam 7.5 MG Tablet PO ×2 (08:16→20:31)
[2023-07-11] MEDS: Lisinopril 5 MG Tablet PO (08:16)
[2023-07-11] MEDS: VILAZODONE HYDROCHLORIDE 10 MG TABLET 20 MG PO (08:17)
[2023-07-11] MEDS: Pantoprazole Sodium 20 MG Tablet PO (08:17)
[2023-07-11] MEDS: Polyethylene Glycol 3350 17 GM PACKET PO (08:18)
[2023-07-11] MEDS: Lidocaine 5% Patch 1 PATCH TOPICAL (08:18)
[2023-07-11] MEDS: Menthol/Lanolin/Calamine/Znox 113 GM Tube 1 APPLIC TOPICAL ×2 (08:19→20:32)
[2023-07-11] MEDS: Triamcinolone Ointment 1 APPLIC TUBE TOPICAL (08:20)
[2023-07-11] MEDS: Neuropathy Pain Cream Compound 60 CLICK TUBE TOPICAL ×2 (08:20→20:31)
[2023-07-11 09:41] VITALS: BMI 33.0
[2023-07-11] MEDS: Tamsulosin HCl 0.4 MG Capsule 0.400000000000000022 MG PO (16:43)
[2023-07-11] MEDS: Latanoprost 0.005% 1 Bottle 1 DRP EACH EYE (20:30)
[2023-07-11] MEDS: QUEtiapine 25 MG Tablet PO (20:31)
[2023-07-11] MEDS: Mirtazapine 30 MG Tablet PO (20:32)
[2023-07-11 21:20] VITALS: BP 144/74; PULSE 99; RESP 16; TEMP 37; O2SAT 97
[2023-07-11] MEDS: 0.9% Saline Lock 10 ML Syringe IV (22:04)
[2023-07-12 03:24] VITALS: BMI 33.0
[2023-07-12] MEDS: 0.9% Normal Saline (1000mL) 1,000 ML 125 ML IV ×3 (05:04→21:44)
[2023-07-12 06:00] VITALS: BMI 32.9
[2023-07-12] MEDS: Lidocaine 5% Patch 1 PATCH TOPICAL (08:17)
[2023-07-12] MEDS: Triamcinolone Ointment 1 APPLIC TUBE TOPICAL (08:17)
[2023-07-12] MEDS: Lisinopril 5 MG Tablet PO (08:18)
[2023-07-12] MEDS: Neuropathy Pain Cream Compound 60 CLICK TUBE TOPICAL ×2 (08:18→20:57)
[2023-07-12] MEDS: VILAZODONE HYDROCHLORIDE 10 MG TABLET 20 MG PO (08:18)
[2023-07-12] MEDS: Multivitamins,Ther W-Minerals Tablet 1 TABLET PO (08:18)
[2023-07-12] MEDS: Pantoprazole Sodium 20 MG Tablet PO (08:18)
[2023-07-12] MEDS: Aspirin 81 MG TAB.CHEW PO (08:19)
[2023-07-12] MEDS: Menthol/Lanolin/Calamine/Znox 113 GM Tube 1 APPLIC TOPICAL ×2 (08:19→21:45)
[2023-07-12] MEDS: levETIRAcetam 500 MG Tablet PO ×2 (08:20→21:44)
[2023-07-12] MEDS: Meloxicam 7.5 MG Tablet PO ×2 (08:21→21:44)
[2023-07-12] MEDS: Polyethylene Glycol 3350 17 GM PACKET PO (08:21)
[2023-07-12] MEDS: Senna Tablet 2 TABLET PO ×2 (08:23→21:44)
[2023-07-12 08:35] VITALS: BP 159/72; PULSE 82; RESP 16; TEMP 36.3; O2SAT 96
[2023-07-12 13:29] VITALS: BMI 32.9
[2023-07-12] MEDS: Tamsulosin HCl 0.4 MG Capsule 0.400000000000000022 MG PO (18:21)
[2023-07-12 19:48] VITALS: BP 128/88; PULSE 86; RESP 17; TEMP 36.6; O2SAT 95
[2023-07-12] MEDS: QUEtiapine 25 MG Tablet PO (20:36)
[2023-07-12] MEDS: Mirtazapine 30 MG Tablet PO (21:44)
[2023-07-12] MEDS: Latanoprost 0.005% 1 Bottle 1 DRP EACH EYE (21:45)
[2023-07-13] MEDS: 0.9% Normal Saline (1000mL) 1,000 ML 125 ML IV (05:29)
[2023-07-13] MEDS: Alendronate Sodium 70 MG Tablet PO (05:29)
[2023-07-13 06:00] VITALS: BMI 33.5
[2023-07-13 07:09] VITALS: BP 158/82; PULSE 92; RESP 16; TEMP 36.9; O2SAT 99
[2023-07-13] MEDS: Meloxicam 7.5 MG Tablet PO ×2 (08:01→21:29)
[2023-07-13] MEDS: levETIRAcetam 500 MG Tablet PO ×2 (08:01→21:29)
[2023-07-13] MEDS: Multivitamins,Ther W-Minerals Tablet 1 TABLET PO (08:01)
[2023-07-13] MEDS: Pantoprazole Sodium 20 MG Tablet PO (08:01)
[2023-07-13] MEDS: VILAZODONE HYDROCHLORIDE 10 MG TABLET 20 MG PO (08:01)
[2023-07-13] MEDS: Aspirin 81 MG TAB.CHEW PO (08:01)
[2023-07-13] MEDS: Lidocaine 5% Patch 1 PATCH TOPICAL (08:01)
[2023-07-13] MEDS: Neuropathy Pain Cream Compound 60 CLICK TUBE TOPICAL ×2 (08:03→21:30)
[2023-07-13] MEDS: Polyethylene Glycol 3350 17 GM PACKET PO ×2 (08:04→21:28)
[2023-07-13] MEDS: Senna Tablet 2 TABLET PO ×2 (08:04→21:28)
[2023-07-13] MEDS: 0.9% Saline Lock 10 ML Syringe IV (08:07)
[2023-07-13] MEDS: Lisinopril 5 MG Tablet PO (08:07)
[2023-07-13] MEDS: Triamcinolone Ointment 1 APPLIC TUBE TOPICAL (10:47)
[2023-07-13] MEDS: Menthol/Lanolin/Calamine/Znox 113 GM Tube 1 APPLIC TOPICAL ×2 (10:48→21:30)
[2023-07-13 11:08] LABS: Vitamin B1, Thiamine 105.6 nmol/L (66.5-200.0)
--- NOTE | 2023-07-13 11:39 | PCM.PROGNOTE ---
Subjective Subjective Afebrile VSS-systolic blood pressure has been elevated most of the time. Diastolics are always within goal. Maintaining appropriate oxygen saturation on RA Oral intake has improved since admission. She is eating 50 to 100% of her meals. Weight has been stable since admission to rehab on 07/06/2023. Last bowel movement was today-prior to that it was 07/11/2023. Discussed with nursing - no problems that need addressed Reviewed the PT/OT/ST notes Medication list reviewed. Denies neck pain today. also denies cephalgia, vertigo, lightheadedness, chest pain, shortness of breath, cough, sore throat, nausea/vomiting/abdominal pain, calf tenderness. She does complain of pain in the left pelvis with bearing wt. No pain when lying in bed. She pushes to the R when standing in front of the mirror and still requiring 2 person assist to stand. All lab done today was personally reviewed. The white blood cell count is now normal at 9.1. Hemoglobin is 10.6, up from 9.8 on 07/07/2023. Platelets are within normal limits. Eosinophils are increased at 8.9 but she has no pruritus, no fever and no rash. Percentage of eosinophils has been persistently elevated since 2019. Sodium is mildly increased at 147 and the potassium is 3.5. BUN is 5 with a creatinine of 0.9 which is stable. Calcium corrected for hypoalbuminemia is still high at 11.2. The KUB today still shows a large amount of fecal material seen in the colon. The bowel gas pattern is unremarkable. Objective Data Objective Data Vital Signs: Vital Signs Temp Pulse Resp BP Pulse Ox O2 Del Method O2 Flow Rate 98.4 F 92 16 158/82 H 99 Room Air 2 07/13/23 07:09 07/13/23 07:09 07/13/23 07:09 07/13/23 07:09 07/13/23 07:09 07/13/23 07:09 07/11/23 19:30 FiO2 94 07/11/23 19:30 Oxygen Flow Rate (L/min) 2 Oxygen Delivery Method Room Air Weight: 191 lb 12.835 oz Body Mass Index (BMI) 32.9 Intake & Output: Intake and Output for Last 24 Hours 07/11/23 07/12/23 07/13/23 23:59 23:59 23:59 Intake Total 2700 / 2700 5340.42 / 5340.42 3218.75 / 3218.75 Output Total 3575 / 3575 3650 / 3650 850 / 850 Balance -875 / -875 1690.42 / 1690.42 2368.75 / 2368.75 Lab / Micro Data 07/13/23 13:35 07/13/23 13:35 Labs: Laboratory Results - last 24 hr 07/07/23 05:17: Whole Bld Vitamin B1 105.6 Micro: Microbiology 07/07/23 15:00 Urine Catheter - Catheter Urine Culture - Final Culture exhibits no growth. 07/09/23 03:15 Stool Stool Occult Blood (BHARAT) - Final Physical Exam Const alert and no apparent distress Constitutional Narrative: Has more color in her face today. Still has her eyes closed much of the time I talk with her and she is not making good eye contact with me.....even when I am standing on the R side. General Appearance: cooperative HEENT Mouth: dry mucous membranes Resp normal respiratory effort, normal air movement and clear to auscultation bilaterally Cardio regular rate, regular rhythm, no murmurs, no rub and no gallops Cardio Narrative: No ectopy GI normal to inspection, nondistended, normoactive bowel sounds, soft to palpation and non-tender GI Narrative: no guarding with palpation. BS are mildly decreased. No abd bruits Extremity no calf tenderness Skin no wounds Rashes: no rashes Neuro Neuro Narrative: Still with marked L side neglect. She does not see the objects on the left side of her lunch tray. Keeping her eyes closed when she is talking to me for the most part. Pushing to the R when standing.....unable to maintain an erect posture. Max assist X 1 to get the LE's into bed from a seated position. Dep X 2 to go from the bedside chair to the EOB using a yanelis lift. Psych cooperative Psych Narrative: Sleeping better at night. Good appetite. Not making eye contact the majority of the time I am talking with her and standing on the R side. LUE is not as restless as last week. Always willing to participate in therapy. No hallucinations. Speech is normal. Talkative with me. 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 I suspect this contributes to urine retention. PLAN: Plan 1. Continue therapy 2. CBC with differential, BMP and serum albumin today 3. Increase polyethylene glycol to twice daily 4. KUB today 5. DC IV fluids 6. Plain Xray of the left hip for pain following a fall 7. Mag citrate 300 cc today followed by SS enema 4-5 hours later. 8. Voiding trial in the AM 9. Check a TSH and T4 Charges/Coding Visit Charges Inpatient E&M: 39234 Subs Hosp L2
--- NOTE | 2023-07-13 13:40 | RAD_ITS ---
STUDY: X-RAY - ABDOMEN/PELVIS REASON FOR EXAM: Female, 72 years old. Constipation/urine retention TECHNIQUE: Single AP view of the abdomen / pelvis. COMPARISON: Comparison is made with prior study dated January 04, 2024. FINDINGS: Elevation of the right hemidiaphragm. The lungs are clear. There is an abundance of fecal material throughout the colon. The visualized liver, spleen and kidneys are grossly normal in size and morphology. Normal soft tissue structures. There are diffuse degenerative changes of the visualized lumbar spine. RAD/Abdomen Single View (Portable) IMPRESSION: Large amount of fecal material is seen in the colon. Electronically Signed: Gordo Clay MD at 14:33 EST ,
[2023-07-13 13:42] LABS: Absolute Lymphocyte Count 1.29 X10^3/uL (0.83-4.51); Absolute Neutrophil Count 6.3 X10^3/uL (2.0-7.7); Basophil% 1.1 % (0-1); Eosinophil# 0.81 X10^3/uL; Eosinophils% 8.9 % (0-5); Hematocrit 33.8 % (37-47); Hemoglobin 10.6 g/dL (12.0-15.0); Lymphocyte # 1.29 X10^3/ul (0.83-4.51); Lymphocyte % 14.1 % (19-41); Mean Corp Hgb Conc 31.4 g/dL (32-36); Mean Corpuscular Hgb 30.5 pg (27.0-32.0); Mean Corpuscular Volume 97.4 fL (81-99); Mean Platelet Vol. 10.3 fl (6.2-12.0); Monocyte% 6.6 % (0-10); NRBC Flagged by Analyzer 0 % (0-5); Neutrophil # 6.31 X10^3/uL (2.7-7.7); Neutrophil % 69.1 % (47-70); Platelet Count 444 K/mm3 (150-450); RBC Distribution Width CV 14.4 % (11.6-14.6); RBC Distribution Width SD 50.4 fl (35.1-43.9); Red Blood Count 3.47 M/mm3 (4.2-5.4); White Blood Count 9.1 K/mm3 (4.4-11.0)
[2023-07-13 14:08] LABS: Albumin, Serum 2.9 g/dL (3.2-5.0); Anion Gap 7 (5-15); BUN 5 mg/dL (7-18); BUN/Creat Ratio 5.5 RATIO (10-20); Calcium,Total 10.4 mg/dL (8.5-10.1); Chloride 115 mmol/L (98-107); EST Glomerular Filtration Rate 65 mL/min (>60); Est Glom Filt Rate - Afr Amer 78 mL/min (>60); Estimated Creatinine Clearance 58.54 ml/min; Glucose 114 mg/dL (74-106); Potassium 3.5 mmol/L (3.5-5.1); Sodium Level 147 mmol/L (136-145)
[2023-07-13 14:33] VITALS: BMI 32.9
--- NOTE | 2023-07-13 15:54 | RAD_ITS ---
STUDY: X-RAY - PELVIS AND LEFT HIP REASON FOR EXAM: Female, 72 years old. Pain after fall TECHNIQUE: 3 views of the pelvis and hip. COMPARISON: None. FINDINGS: There is a non-specific bowel gas pattern. There is evidence of bilateral tubal ligation clips. Normal bilateral iliac wings, sacroiliac joints and visualized sacrum. Normal bilateral superior and inferior pubic rami. Normal pubic symphysis. Normal bilateral ischial tuberosities. Normal visualized femoral head. Normal acetabulum. Normal hip joint. RAD/HIP, UNI W/ Pelvis 2-3 Views IMPRESSION: No fracture is seen. Electronically Signed: Gordo Clay MD at 9:17 EST ,
[2023-07-13 16:32] LABS: T4 Free Direct 0.99 ng/dL (0.76-1.46); Thyroid Stim Hormone (TSH) 1.48 uIU/mL (0.358-3.74)
[2023-07-13] MEDS: Magnesium Citrate 300 ML PO (16:47)
[2023-07-13] MEDS: Tamsulosin HCl 0.4 MG Capsule 0.400000000000000022 MG PO (16:47)
--- NOTE | 2023-07-13 18:55 | NURSING ---
SSE given and mag citrate bottle per order with XL results of formed/nonformed results. Patient tolerated well. BS x 4, hypo, soft and nontender.
[2023-07-13] MEDS: QUEtiapine 25 MG Tablet PO (19:44)
[2023-07-13 19:59] VITALS: PULSE 92; O2SAT 99
[2023-07-13] MEDS: Mirtazapine 30 MG Tablet PO (21:29)
[2023-07-13] MEDS: Latanoprost 0.005% 1 Bottle 1 DRP EACH EYE (21:30)
[2023-07-13 22:00] VITALS: BP 164/82; PULSE 92; RESP 16; TEMP 37.2; O2SAT 99
[2023-07-13 22:07] VITALS: BMI 32.9
[2023-07-14 06:00] VITALS: BMI 33.2
[2023-07-14 07:07] VITALS: BP 146/71; PULSE 85; RESP 15; TEMP 36.9; O2SAT 95
[2023-07-14] MEDS: Neuropathy Pain Cream Compound 60 CLICK TUBE TOPICAL ×2 (07:45→20:19)
[2023-07-14] MEDS: Lisinopril 5 MG Tablet PO (07:45)
[2023-07-14] MEDS: Triamcinolone Ointment 1 APPLIC TUBE TOPICAL (07:45)
[2023-07-14] MEDS: Polyethylene Glycol 3350 17 GM PACKET PO ×2 (07:45→20:20)
[2023-07-14] MEDS: Lidocaine 5% Patch 1 PATCH TOPICAL (07:45)
[2023-07-14] MEDS: Multivitamins,Ther W-Minerals Tablet 1 TABLET PO (07:46)
[2023-07-14] MEDS: Aspirin 81 MG TAB.CHEW PO (07:46)
[2023-07-14] MEDS: levETIRAcetam 500 MG Tablet PO ×2 (07:46→20:20)
[2023-07-14] MEDS: VILAZODONE HYDROCHLORIDE 10 MG TABLET 20 MG PO (07:46)
[2023-07-14] MEDS: Meloxicam 7.5 MG Tablet PO ×2 (07:46→20:21)
[2023-07-14] MEDS: Senna Tablet 2 TABLET PO ×2 (07:46→20:21)
[2023-07-14] MEDS: Pantoprazole Sodium 20 MG Tablet PO (07:46)
--- NOTE | 2023-07-14 08:26 | PN_ITS ---
Subjective Subjective Afebrile VSS-the systolic blood pressure is high and ranges from 144-1.64. Diastolics are for the most part well-controlled. Heart rate is within normal limits. Maintaining appropriate oxygen saturation on RA-she is compliant with the oxygen anytime she is sleeping. Oral intake is variable. Oral fluid intake yesterday was 2109. She had an additional approximately 2 L IV. Fluid balance yesterday was +2329. Overnight she was -700 cc. Following 300 cc of mag citrate and a soapsuds enema the patient had 3 bowel movements yesterday and 1 bowel movement today. Donato catheter was discontinued this morning at 5 AM. IV fluids were discontinued yesterday. She is on a calcium restricted diet. Discussed with nursing - no problems that need addressed Reviewed the PT/OT/ST notes Medication list reviewed. I reviewed hip x-ray done yesterday. Per my review there has been joint space narrowing since an x-ray done in 2012 but there is no evidence of fracture or dislocation. We are still awaiting the official radiology read. Patient denies nausea/vomiting/abdominal pain/calf pain/lightheadedness. A UA was sent prior to discontinuation of the Donato catheter and it showed 0-5 WBCs, positive nitrite and 1+ bacteria. Urine culture was sent. Objective Data Objective Data Vital Signs: Vital Signs Temp Pulse Resp BP Pulse Ox O2 Del Method O2 Flow Rate 98.4 F 85 15 146/71 H 95 Room Air 2 07/14/23 07:07 07/14/23 07:07 07/14/23 07:07 07/14/23 07:07 07/14/23 07:07 07/14/23 07:07 07/13/23 22:00 FiO2 94 07/11/23 19:30 Oxygen Flow Rate (L/min) 2 Oxygen Delivery Method Room Air Weight: 193 lb 5.526 oz Body Mass Index (BMI) 33.2 Intake & Output: Intake and Output for Last 24 Hours 07/12/23 07/13/23 07/14/23 23:59 23:59 23:59 Intake Total 5340.42 / 5340.42 5578.75 / 5578.75 Output Total 3650 / 3650 3250 / 3250 700 / 700 Balance 1690.42 / 1690.42 2328.75 / 2328.75 -700 / -700 Lab / Micro Data 07/13/23 13:35 07/13/23 13:35 Labs: Laboratory Results - last 24 hr 07/07/23 05:17: Whole Bld Vitamin B1 105.6 07/13/23 13:35: WBC 9.1, RBC 3.47 L, Hgb 10.6 L, Hct 33.8 L, MCV 97.4, MCH 30.5, MCHC 31.4 L, RDW Std Deviation 50.4 H, RDW Coeff of Kenisha 14.4, Plt Count 444, MPV 10.3, Immature Gran % (Auto) 0.200, Neut % (Auto) 69.1, Lymph % (Auto) 14.1 L, [place] % (Auto) 6.6, Eos % (Auto) 8.9 H, Baso % (Auto) 1.1 H, Absolute Neuts (auto) 6.3, Absolute Lymphs (auto) 1.29, Nucleated RBC % 0, Sodium 147 H, Potassium 3.5, Chloride 115 H, Carbon Dioxide 25.0, Anion Gap 7, BUN 5 L, Creatinine 0.90, Estim Creat Clear Calc 58.54, Est GFR (MDRD) Af Amer 78, Est GFR (MDRD) Non-Af 65, BUN/Creatinine Ratio 5.5 L, Glucose 114 H, Calcium 10.4 H, Albumin 2.9 L, TSH 1.48, Free T4 0.99 Micro: Microbiology 07/07/23 15:00 Urine Catheter - Catheter Urine Culture - Final Culture exhibits no growth. 07/09/23 03:15 Stool Stool Occult Blood (BHARAT) - Final Radiography Diagnostic Testing: Radiology Impression KUB X-Ray 07/13/23 13:40 IMPRESSION: Large amount of fecal material is seen in the colon. Electronically Signed: Gordo Clay MD at 14:33 EST , Physical Exam Const alert and no apparent distress Constitutional Narrative: Has more color in her face today. Still has her eyes closed much of the time I talk with her and she is not making good eye contact with me.....even when I am standing on the R side. General Appearance: cooperative HEENT Mouth: dry mucous membranes Resp normal respiratory effort, normal air movement and clear to auscultation bilaterally Cardio regular rate, regular rhythm, no murmurs, no rub and no gallops Cardio Narrative: No ectopy GI normal to inspection, nondistended, normoactive bowel sounds, soft to palpation and non-tender GI Narrative: no guarding with palpation. BS are mildly decreased. No abd bruits Extremity no calf tenderness Skin no wounds Rashes: no rashes Psych cooperative Psych Narrative: Sleeping better at night. Good appetite. Not making eye contact the majority of the time I am talking with her and standing on the R side. LUE is not as restless as last week. Always willing to participate in therapy. No hallucinations. Speech is normal. Talkative with me. 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 Continue therapy 2. She is afebrile with a normal white blood cell count and unremarkable di fferential and she has no dysuria. Will await the results of the urine culture and hold off on antibiotics at this time. 3. Continue senna and MiraLAX twice daily. 4. Mood is good and she is eating better and sleeping better. Will decrease the Viibryd to 10 mg in the next couple days. 5. decrease the Seroquel at Hs to 12.5 mg 6. Appetite was very poor at admission and the Remeron is helping with this BUT, going forward I do not want her gaining wt and this is a big SE of Remeron. Consider changing to Effexor in the future if the wt starts to increase. Charges/Coding Visit Charges Inpatient E&M: 95344 Subs Hosp L2
[2023-07-14] MEDS: Menthol/Lanolin/Calamine/Znox 113 GM Tube 1 APPLIC TOPICAL ×2 (11:08→20:32)
[2023-07-14 13:02] VITALS: BMI 33.2
[2023-07-14] MEDS: Tamsulosin HCl 0.4 MG Capsule 0.400000000000000022 MG PO (17:23)
[2023-07-14 18:18] LABS: Mucous, Urine 0 SEEN /hpf (<or=2+); Red Blood Cells-Urine 0 SEEN /hpf (0-5); Squamous Epithelial Cells - UA 0 SEEN /hpf (5-10)
[2023-07-14 18:19] LABS: Color, Urine Yellow (Yellow); Glucose, Dipstick Normal (Normal); Ketone-Dipstick Negative (Negative); Leukocyte Esterase-Dipstick 100 /ul (Negative); Nitrite-Dipstick Positive (Negative); Occult Blood-Urine Negative /ul (Negative); Protein-Dipstick Negative (Negative); Urine Bilirubin Dipstick Negative (Negative); Urine Clarity Clear (Clear); Urine Urobilinogen Normal (Normal)
[2023-07-14 18:28] LABS: Bacteria 1+ /hpf (None Seen); White Blood Cells 0-5 SEEN /hpf (0-5)
[2023-07-14 19:24] VITALS: BP 153/78; PULSE 80; RESP 16; TEMP 37.1; O2SAT 94
[2023-07-14 20:09] VITALS: PULSE 87; O2SAT 98
[2023-07-14] MEDS: Latanoprost 0.005% 1 Bottle 1 DRP EACH EYE (20:19)
[2023-07-14] MEDS: QUEtiapine 25 MG Tablet PO (20:20)
[2023-07-14] MEDS: Mirtazapine 30 MG Tablet PO (20:21)
[2023-07-14 23:19] VITALS: BMI 33.2
--- NOTE | 2023-07-15 02:26 | NURSING ---
Pt unable to void on bedpan during rounds. Bladder scan showed 350cc in bladder. Straight cathed for 360cc. Pt tolerated well. After straight cath, bladder scan showed 5cc in bladder.
--- NOTE | 2023-07-15 02:58 | NURSING ---
Reviewed and agree with, Gustavo WRIGHT, documentation and assessment charting.
[2023-07-15 06:00] VITALS: BMI 33.3
[2023-07-15 07:20] VITALS: BP 157/63; PULSE 74; RESP 16; TEMP 36.5; O2SAT 98
[2023-07-15] MEDS: Lisinopril 5 MG Tablet PO (09:12)
[2023-07-15] MEDS: Polyethylene Glycol 3350 17 GM PACKET PO ×2 (09:12→21:39)
[2023-07-15] MEDS: Aspirin 81 MG TAB.CHEW PO (09:12)
[2023-07-15] MEDS: VILAZODONE HYDROCHLORIDE 10 MG TABLET 20 MG PO (09:12)
[2023-07-15] MEDS: Multivitamins,Ther W-Minerals Tablet 1 TABLET PO (09:13)
[2023-07-15] MEDS: Meloxicam 7.5 MG Tablet PO ×2 (09:13→21:39)
[2023-07-15] MEDS: Neuropathy Pain Cream Compound 60 CLICK TUBE TOPICAL ×2 (09:13→21:38)
[2023-07-15] MEDS: levETIRAcetam 500 MG Tablet PO ×2 (09:13→21:39)
[2023-07-15] MEDS: Senna Tablet 2 TABLET PO ×2 (09:13→21:37)
[2023-07-15] MEDS: Triamcinolone Ointment 1 APPLIC TUBE TOPICAL (09:13)
[2023-07-15] MEDS: Pantoprazole Sodium 20 MG Tablet PO (09:13)
[2023-07-15] MEDS: Menthol/Lanolin/Calamine/Znox 113 GM Tube 1 APPLIC TOPICAL ×2 (09:14→21:39)
[2023-07-15 15:09] VITALS: BMI 33.3
--- NOTE | 2023-07-15 16:03 | CHAPLAIN ---
Type of Pastoral Visit _x__ Initial Visit ___ Follow-up Visit ___ On-call Visit ___ General Patient Visit ___ Spiritual Assessment ___ Family Conference ___ Bereavement ___ Rapid Response ___ Code Blue ___ Other (describe below) Pastoral Care Referral From _x__ Patient ___ Family ___ Nurse ___ Physician ___ Paper Hanger ___ Marketing Planner ___ Other (describe below) Sacrament/Intervention _x__ Active listening ___ Anointing ___ Rastafari ___ Bereavement ___ Communion ___ Marielos exploration ___ _x__ Life review _x__ Prayer ___ Reconciliation ___ Sacrament of Sick _x__ Supportive presence ___ Wedding ___ Other (describe below) Pastoral Comments patient is napping but awakens easily to her name; pt is surrounded by many flower bouquets and this is topic of conversation at first with assessment of family and friend support system; pt is pleasant and able to give some of her story; pt states that she is not able to remember her stroke or fall; 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
[2023-07-15] MEDS: Tamsulosin HCl 0.4 MG Capsule 0.400000000000000022 MG PO (17:12)
[2023-07-15 19:27] VITALS: BP 153/76; PULSE 94; RESP 16; TEMP 36.1; O2SAT 97
[2023-07-15 20:20] VITALS: BMI 33.3
[2023-07-15 20:28] VITALS: BMI 33.3
[2023-07-15 20:30] VITALS: PULSE 94; RESP 16
[2023-07-15] MEDS: QUEtiapine 25 MG Tablet 12.5 MG PO (20:33)
[2023-07-15] MEDS: Latanoprost 0.005% 1 Bottle 1 DRP EACH EYE (21:36)
[2023-07-15] MEDS: Mirtazapine 30 MG Tablet PO (21:38)
--- NOTE | 2023-07-16 05:13 | NURSING ---
Pt unable to void more than 150ml and PVR indicated 450ml remains this a.m. Donato replaced per order and pt tolerated well.
[2023-07-16 05:26] VITALS: BMI 33.2
[2023-07-16 07:27] VITALS: BP 138/69; PULSE 85; RESP 18; TEMP 37.1; O2SAT 95
[2023-07-16] MEDS: levETIRAcetam 500 MG Tablet PO ×2 (08:06→21:15)
[2023-07-16] MEDS: Aspirin 81 MG TAB.CHEW PO (08:06)
[2023-07-16] MEDS: Multivitamins,Ther W-Minerals Tablet 1 TABLET PO (08:06)
[2023-07-16] MEDS: Meloxicam 7.5 MG Tablet PO ×2 (08:06→21:15)
[2023-07-16] MEDS: VILAZODONE HYDROCHLORIDE 10 MG TABLET PO (08:06)
[2023-07-16] MEDS: Pantoprazole Sodium 20 MG Tablet PO (08:06)
[2023-07-16] MEDS: Menthol/Lanolin/Calamine/Znox 113 GM Tube 1 APPLIC TOPICAL ×2 (08:07→20:20)
[2023-07-16] MEDS: Senna Tablet 2 TABLET PO ×2 (08:07→20:20)
[2023-07-16] MEDS: Lisinopril 5 MG Tablet PO (08:07)
[2023-07-16] MEDS: Polyethylene Glycol 3350 17 GM PACKET PO ×2 (08:08→20:18)
[2023-07-16] MEDS: Triamcinolone Ointment 1 APPLIC TUBE TOPICAL (08:08)
[2023-07-16] MEDS: Lidocaine 5% Patch 1 PATCH TOPICAL (08:08)
[2023-07-16] MEDS: Neuropathy Pain Cream Compound 60 CLICK TUBE TOPICAL ×2 (08:08→20:19)
--- NOTE | 2023-07-16 10:39 | PN_ITS ---
Subjective Subjective Afebrile VSS-blood pressure today is 138/69. Heart rate is 85. Maintaining appropriate oxygen saturation on RA while awake. She is on 2 L/min at night while sleeping for suspected SHAREE. Oral intake is fair to good. 1 bowel movement yesterday. Incontinent of urine at times but at other times summons nursing because she feels as though she has to urinate. Discussed with nursing - nursing put in a Donato last night for a post void residual of 450. She had 2 postvoid residuals done on 07/15/2023 and 1 was 4 cc and the second was 198 cc. She has been able to void some urine since the Donato was discontinued. Reviewed the PT/OT/ST notes - doing much better with cognition. Initial COG LO she scored 12/10 and today she scored 24/30. She is able to scan when reading and is reading short phrases. She was able to amb 8' using the HW in the R hand and grasping the wall rail with the L hand with MAX assist X 1 and MAX VC's. She is not able to lift the LLE off the floor but she is able to slide it forward and backward with the use of a slipper sock on the Left shoe. Stood at the wall rail for 3 minutes today with MAX assist X1. Left knee and ankle are soft and therapy is bracing the knee with a knee immobilizer and WILBER wrapping the Left ankle into dorsiflexion for support. Requiring MOD assist X1 for bathing today (she was total assist last week.) She is still total assist with toileting and toilet transfer. Medication list reviewed. Urine culture done 07/14/23 showed 80,000 to 100,000 colonies of a MRSE. Sleeping OK at night. Nursing has to replace the oxygen cannula at night dell loaiza she takes the O2 ashok. Sherri denies CARUSO, lightheadedness, N/V/abd pain, CP, SOB, dysuria and calf pain. The urine in the Donato tubing is pale yellow and clear. colonization of urine? vs infection? She tells me that the pain she was having in the Left pelvis and hip is mostly gone and it does not keep her awake at night. Objective Data Objective Data Vital Signs: Vital Signs Temp Pulse Resp BP Pulse Ox O2 Del Method O2 Flow Rate 98.8 F 85 18 138/69 H 95 Room Air 2 07/16/23 07:27 07/16/23 07:27 07/16/23 07:27 07/16/23 07:27 07/16/23 07:27 07/16/23 07:27 07/14/23 20:09 FiO2 94 07/11/23 19:30 Oxygen Flow Rate (L/min) 2 Oxygen Delivery Method Room Air Weight: 193 lb 9.054 oz Body Mass Index (BMI) 33.2 Intake & Output: Intake and Output for Last 24 Hours 07/14/23 07/15/23 07/16/23 23:59 23:59 23:59 Intake Total 720 / 720 1350 / 1350 360 / 360 Output Total 1250 / 1250 1550 / 1550 150 / 150 Balance -530 / -530 -200 / -200 210 / 210 Lab / Micro Data 07/13/23 13:35 07/13/23 13:35 Micro: Microbiology 07/14/23 18:00 Urine Catheter - Catheter Urine Culture - Final Staphylococcus epidermidis 07/07/23 15:00 Urine Catheter - Catheter Urine Culture - Final Culture exhibits no growth. 07/09/23 03:15 Stool Stool Occult Blood (BHARAT) - Final Physical Exam Const alert and no apparent distress Constitutional Narrative: Has more color in her face today. Still has her eyes closed much of the time I talk with her and she is not making good eye contact with me.....even when I am standing on the R side. General Appearance: cooperative Orientation / Consciousness: Negative for confused HEENT moist oral mucous membranes Eyes PERRL and EOMs intact bilaterally Neck supple General: trachea midline Resp clear to auscultation bilaterally Resp Narrative: No conversational dyspnea Effort and Inspection: Negative for tachypneic Cardio regular rate, regular rhythm, no murmurs, no rub and no gallops Cardio Narrative: No ectopy GI normal to inspection, nondistended, normoactive bowel sounds, soft to palpation and non-tender GI Narrative: no guarding with palpation. BS are mildly decreased. No abd bruits Extremity no calf tenderness Extremity Narrative: trace edema of the Left ankle. General Extremity: Negative for clubbing or cyanosis Skin no wounds and no jaundice General Skin Exam: no breakdown Rashes: no rashes Neuro oriented x3 and CN's II-XII intact bilaterally Neuro Narrative: 1. LOC Alert: 0 2. LOC/Orientation: 0 3. LOC Commands: 0 4. Horizontal extraocular movements : 0 5. Visual kee: 1 6. Facial Paresis: 0 7. Motor arm left: 1 8. Motor arm right: 0 9. Motor leg left: 1 10. Motor leg right: 0 11. Limb ataxia: 1 12. Sensory: 1 13. Best language: 0 14. Dysarthria: 0 15. Extinction and inattention: 2 visual and tactile extinction/Shahid inattention on the left. Still with alien hand movements with the LUE. Total score 7 Down from 9 at admission to rehab. Coordination / Balance: [id number] test normal and [id number] test normal Speech: speech normal Gait (Neuro): unable to assess gait Sensory Exam: double simultaneous stimulation for sensation abnormal Motor Exam: no tremor and clonus absent; Negative for asterixis or fasciculations Psych cooperative Psych Narrative: Sad at times which is appropriate. Sleeping much better at night and appetite has been improving. Good facial expression and good eye contact when I am speaking with her. Not anxious. Quickwitted and talkative. Interacts very well with all the staff. Appearance: appropriate Attitude: No agitated Thought Content: No suicidality, No homicidality, No delusion(s) and No hallucination(s) Assessment & Plan Assessment/Plan (1) Obstructive sleep apnea of adult: PLAN: Will try for a overnight sleep study on the night she is discharged from rehab. Continue O2 @ via NC when she is sleeping. (2) Debility: (3) Ischemic cerebrovascular accident (CVA): (4) Subarachnoid hemorrhage: PLAN: Following closed head injury + TNK. (5) Closed TBI (traumatic brain injury): QUALIFIERS: Encounter type: subsequent encounter Loss of consciousness presence/duration: unknown LOC status Qualified Code(s): S06.9XAD - Unspecified intracranial injury with loss of consciousness status unknown, subsequent encounter PLAN: Due to a fall in the BR at the time the stroke occurred. (6) Hypercalcemia: PLAN: Possibly due to hyperparathyroidism. PTH is elevated to 93.6 and the highest normal is 80.1. Asymptomatic at present. Will recommend follow up with Dr. Givens following DC from acute rehab. (7) Alien hand syndrome: (8) Hemianopia of left eye: PLAN: Left lateral upper and lower quadrants at admission to rehab and now only in the lower outer quadrant. (9) Acute left hemiparesis: PLAN: Improving. (10) Acute retention of urine: (11) History of breast cancer: (12) Constipation: QUALIFIERS: Constipation type: unspecified constipation type Qualified Code(s): K59.00 - Constipation, unspecified (13) Cystitis: PLAN: Plan 1. Continue therapy 2. Remove the Donato today. Nursing to BladderScan for postvoid residuals and straight cath if greater than 250 cc. 3. Start doxycycline 100 mg p.o. twice daily - This may be a colonization and not an infection but, since it is new since 07/07/2023 will treat. Will repeat a UA and urine culture 1 week after the conclusion of doxycycline. 4. Doing very well in therapy and progressing faster than I thought she would. Not ready for DC home but, going forward I think she will eventually be able to get home with family support. Charges/Coding Visit Charges Inpatient E&M: 67597 Subs Hosp L2
[2023-07-16 12:49] VITALS: BMI 33.2
--- NOTE | 2023-07-16 12:55 | CM.UR ---
Social Work Team meeting held with pt, pt's spouse in attendance and pt's dgt on speaker phone. PT/OT/ST/SN provided updates on pt's progress and pt is showing much improvement during the last week. SW updated pt that NRD with insurance is tomorrow 07/17. Team feels continued stay in [facility] would be beneficial for pt at this time. SW spoke with pt and family regarding superintendent container terminal plans and that pt will likely need continued therapy at SNF at time of discharge. While pt is feeling frustrated that she wants to return home as soon as possible, she is understanding that she may need short term SNF stay after [facility] treatment is complete. A list of SNF providers including quality and resource use data and consistent with the preferred geographic region, medical need and insurance network was provided to the pt and family. Plan to continue with treatment plan at this time and ReTeam next week. GALO Teran
--- NOTE | 2023-07-16 16:18 | CASEMGMT ---
Social Work Team meeting held with pt and spouse present and dgt on speaker phone. PT/OT/ST/SN provided update on pt progress with therapy and that pt has made many gains in the last week. SW explained that NRD with insurance is tomorrow and continued stay is not guaranteed however team is recommending continuation of pt's treatment plans as pt is making progress. SW did broach topic of alternative plan once pt is no longer eligiblel for inpatient rehab. Pt wants to return home at time of discharge from [facility]. SW and team spoke about possible need for continued rehab in SNF after Inpatient Rehab stay is complete. A list of SNF providers including quality and resource measures was provided to the pt from the [facility]. Will continue with treatment plan and ReTeam next week. SW spent time with pt and spouse after team. Emotional support provided to pt and spouse in regards to loss of function and changes in life as a result of recent stroke. SW again discussed possible need for SNF and explained differences in levels of care and insurance coverage for each. Pt and spouse understanding of need to consider SNF options and make selections in the event pt cannot return home when [facility] stay is complete. SW will continue to follow for support and dc planning. GALO Teran
[2023-07-16] MEDS: Tamsulosin HCl 0.4 MG Capsule 0.400000000000000022 MG PO (17:39)
[2023-07-16] MEDS: Latanoprost 0.005% 1 Bottle 1 DRP EACH EYE (20:19)
[2023-07-16] MEDS: QUEtiapine 25 MG Tablet 12.5 MG PO (20:20)
[2023-07-16 21:00] VITALS: BP 145/66; PULSE 88; RESP 16; TEMP 36.2; O2SAT 97
[2023-07-16] MEDS: Mirtazapine 30 MG Tablet PO (21:15)
[2023-07-16] MEDS: Doxycycline 100 MG CAPSULE PO (21:15)
[2023-07-16 22:30] VITALS: BMI 33.2
[2023-07-17] MEDS: Hydrocortisone 2.5% Crm 1 APPLIC TOPICAL ×2 (05:01→21:40)
[2023-07-17 05:58] VITALS: BMI 33.7
--- NOTE | 2023-07-17 06:09 | NURSING ---
Patient straight catherized last HS and this Am due to inability to void on own. Patient attempted to use bedpan and felt the urge but she was unsuccessful. Patient easily redirected and very nice to staff. Patient did get confused a few times during the night and requested to leave, impulsive, was not aware of what time it was. Patient given cues and reminders. Patient has raised rash to back noted at bedtime and due to being uncomfortable with feeling itchy, prn hydrocortisone cream applied and effective. Patient told this nurse she has sensitive skin. Will monitor.
[2023-07-17 07:23] VITALS: BP 160/74; PULSE 69; RESP 17; TEMP 36.8; O2SAT 94
[2023-07-17] MEDS: Aspirin 81 MG TAB.CHEW PO (08:08)
[2023-07-17] MEDS: Pantoprazole Sodium 20 MG Tablet PO (08:08)
[2023-07-17] MEDS: VILAZODONE HYDROCHLORIDE 10 MG TABLET PO (08:08)
[2023-07-17] MEDS: Doxycycline 100 MG CAPSULE PO ×2 (08:08→21:30)
[2023-07-17] MEDS: Triamcinolone Ointment 1 APPLIC TUBE TOPICAL (08:09)
[2023-07-17] MEDS: Multivitamins,Ther W-Minerals Tablet 1 TABLET PO (08:09)
[2023-07-17] MEDS: Lisinopril 5 MG Tablet PO ×2 (08:09→12:39)
[2023-07-17] MEDS: Neuropathy Pain Cream Compound 60 CLICK TUBE TOPICAL ×2 (08:09→21:30)
[2023-07-17] MEDS: Meloxicam 7.5 MG Tablet PO ×2 (08:09→21:29)
[2023-07-17] MEDS: Lidocaine 5% Patch 1 PATCH TOPICAL (08:10)
[2023-07-17] MEDS: Polyethylene Glycol 3350 17 GM PACKET PO ×2 (08:10→21:29)
[2023-07-17] MEDS: Senna Tablet 2 TABLET PO ×2 (08:10→21:29)
[2023-07-17] MEDS: levETIRAcetam 500 MG Tablet PO ×2 (08:10→21:29)
[2023-07-17] MEDS: Menthol/Lanolin/Calamine/Znox 113 GM Tube 1 APPLIC TOPICAL ×2 (10:19→21:31)
--- NOTE | 2023-07-17 10:52 | PCM.PROGNOTE ---
Subjective Subjective Day #2 doxycycline for cystitis vs colonization of urine with MRSE Afebrile VSS systolics are consistently above goal. Diastolics are within goal. Heart rate is within normal limits. Maintaining appropriate oxygen saturation on RA Oral intake is improved. Weight today is up a little over 3 pounds since yesterday. This does not fit with the -1140 fluid deficit for yesterday. Had a BM today Discussed with nursing - Night nursing reports a pruritic rash that kept her awake last night. She was started on doxycycline yesterday for MRSE in the urine. She listed only PCN's as an allergy. She was confused off and on through the night........Seroquel was decreased to 12.5 mg on 07/15/23. She was unable to void last night and also this AM. She was straight cathed for 550 cc of urine at at bedtime and 600 this a.m. She is on Flomax. Reviewed the PT/OT/ST notes Medication list reviewed. eosinophils on the diffs have been persistently elevated since 2019. They were 8.9% on 07/13/23. The AEC on 07/13/23 was 819. ALEXSANDRA has been + in the past but, dsDNA was negative. Sherri denies lightheadedness, vertigo, CP, SOB at rest, cough, nausea, vomiting, abd pain, diarrhea, constipation, dysuria, calf pain and ankle swelling. She c/o being tired after therapy. She is doing a better job of scanning when reading. Is not pushing so much when she is standing at the wall rail. Objective Data Objective Data Vital Signs: Vital Signs Temp Pulse Resp BP Pulse Ox O2 Del Method O2 Flow Rate 98.2 F 69 17 160/74 H 94 Room Air 2 07/17/23 07:23 07/17/23 07:23 07/17/23 07:23 07/17/23 07:23 07/17/23 07:23 07/17/23 07:23 07/14/23 20:09 FiO2 94 07/11/23 19:30 Oxygen Flow Rate (L/min) 2 Oxygen Delivery Method Room Air Weight: 197 lb Body Mass Index (BMI) 33.7 Intake & Output: Intake and Output for Last 24 Hours 07/15/23 07/16/23 07/17/23 23:59 23:59 23:59 Intake Total 1350 / 1350 960 / 960 360 / 360 Output Total 1550 / 1550 1650 / 1650 600 / 600 Balance -200 / -200 -690 / -690 -240 / -240 Lab / Micro Data 07/17/23 11:30 07/17/23 11:30 Micro: Microbiology 07/14/23 18:00 Urine Catheter - Catheter Urine Culture - Final Staphylococcus epidermidis 07/07/23 15:00 Urine Catheter - Catheter Urine Culture - Final Culture exhibits no growth. 07/09/23 03:15 Stool Stool Occult Blood (BHARAT) - Final Physical Exam Const alert, oriented x3 and no apparent distress Constitutional Narrative: Looks tired and was getting ready to take a nap when I examined her HEENT moist oral mucous membranes Resp normal respiratory effort and clear to auscultation bilaterally Cardio regular rate, regular rhythm and no gallops GI normal to inspection, nondistended, normoactive bowel sounds, soft to palpation and non-tender GI Narrative: No guarding with palpation. Extremity no calf tenderness Skin General Skin Exam: no breakdown Wound Narrative: She has a rash on her back.......it is red and maculopapular.........had this rash prior to the antibiotic. It is pruritic. She has been sleeping in a hospital gown with the back open. she has had rashes in the past on her back. Psych cooperative and denies suicidal ideation Appearance: appropriate Attitude: No agitated Assessment & Plan Assessment/Plan (1) Debility: (2) Ischemic cerebrovascular accident (CVA): (3) Subarachnoid hemorrhage: (4) Closed TBI (traumatic brain injury): QUALIFIERS: Encounter type: subsequent encounter Loss of consciousness presence/duration: unknown LOC status Qualified Code(s): S06.9XAD - Unspecified intracranial injury with loss of consciousness status unknown, subsequent encounter (5) Hemianopia of left eye: PLAN: She is now able to see in the upper outer Quadrant of the Left eye but, she still has visual loss in the lower outer quadrant. (6) Acute left hemiparesis: (7) Acute retention of urine: (8) Obstructive sleep apnea of adult: PLAN: Will get a formal sleep study after DC. (9) Cystitis: (10) Dermatitis: PLAN: due to moisture from sweating? or to antibiotic.......rash preceded the antibiotic......unlikely. PLAN: Plan 1. Continue therapy 2. Check a CBC with differential and a BMP today. If the eos have increased will DC the Doxycycline. Etiology of the Eosinophilia? Drugs? Started in 2019 so If due to a drug reaction than would have to be a drug she has consistently been taking since 2019. Due to CA? parasitic? 3. She is making good progress but, likely will not be able to go home from acute rehab. She understands that she will need SNF at [facility] from rehab. 4. Finish 7 days of doxycycline if possible for MRSE UTI. 5. Consider W/U for eosinophilia as an OP. 6. Continue hydrocortisone cream twice daily to the back to control pruritus Charges/Coding Visit Charges Inpatient E&M: 18453 Subs Hosp L1
[2023-07-17 11:49] LABS: Absolute Lymphocyte Count 1.44 X10^3/uL (0.83-4.51); Basophil# 0.08 X10^3/uL; Basophil% 0.9 % (0-1); Eosinophil# 1.19 X10^3/uL; Eosinophils% 12.9 % (0-5); Hematocrit 37.1 % (37-47); Hemoglobin 11.6 g/dL (12.0-15.0); Lymphocyte # 1.44 X10^3/ul (0.83-4.51); Lymphocyte % 15.7 % (19-41); Mean Corp Hgb Conc 31.3 g/dL (32-36); Mean Corpuscular Volume 95.9 fL (81-99); Mean Platelet Vol. 11.4 fl (6.2-12.0); Monocyte# 0.46 X10^3/uL; NRBC Flagged by Analyzer 0 % (0-5); Neutrophil % 65.3 % (47-70); POSITIVE COUNT YES; RBC Distribution Width CV 14.5 % (11.6-14.6); RBC Distribution Width SD 50.4 fl (35.1-43.9); Red Blood Count 3.87 M/mm3 (4.2-5.4); White Blood Count 9.2 K/mm3 (4.4-11.0)
[2023-07-17 12:01] LABS: Anion Gap 4 (5-15); BUN 7 mg/dL (7-18); BUN/Creat Ratio 8.3 RATIO (10-20); Calcium,Total 10.3 mg/dL (8.5-10.1); Chloride 110 mmol/L (98-107); Creatinine, Serum 0.85 mg/dL (0.55-1.02); EST Glomerular Filtration Rate 70 mL/min (>60); Est Glom Filt Rate - Afr Amer 84 mL/min (>60); Estimated Creatinine Clearance 62.85 ml/min; Glucose 92 mg/dL (74-106); Potassium 3.9 mmol/L (3.5-5.1); Sodium Level 144 mmol/L (136-145)
[2023-07-17 12:15] LABS: Differential Indicated SCAN CRITERIA MET
[2023-07-17 12:16] LABS: Platelet Estimate ADEQUATE (ADEQ)
[2023-07-17 12:24] LABS: Erythrocyte Sedimentation Rate 18 mm/hr (0-30)
[2023-07-17 15:14] VITALS: BMI 33.7
--- NOTE | 2023-07-17 15:24 | CASEMGMT ---
Social Work SW spoke with to update on insurance approval with NRD 07/24. Pt to update . Frances Huff, ACTIVITY DIRECTOR MEDICAL AFFAIRS MANAGER
[2023-07-17 20:09] VITALS: BP 142/74; PULSE 101; RESP 18; TEMP 36.9; O2SAT 94
[2023-07-17 20:10] VITALS: PULSE 101
[2023-07-17] MEDS: QUEtiapine 25 MG Tablet 12.5 MG PO (20:20)
[2023-07-17] MEDS: Latanoprost 0.005% 1 Bottle 1 DRP EACH EYE (21:28)
[2023-07-17] MEDS: Mirtazapine 30 MG Tablet PO (21:30)
[2023-07-17 23:48] VITALS: BMI 33.7
[2023-07-18 06:06] VITALS: BP 144/63; PULSE 85; RESP 16; TEMP 36.7; O2SAT 96
[2023-07-18 06:12] VITALS: BMI 32.8
[2023-07-18 08:00] VITALS: BP 148/80
[2023-07-18] MEDS: Senna Tablet 2 TABLET PO ×2 (08:01→21:31)
[2023-07-18] MEDS: VILAZODONE HYDROCHLORIDE 10 MG TABLET PO (08:01)
[2023-07-18] MEDS: Aspirin 81 MG TAB.CHEW PO (08:01)
[2023-07-18] MEDS: levETIRAcetam 500 MG Tablet PO ×2 (08:01→21:32)
[2023-07-18] MEDS: Multivitamins,Ther W-Minerals Tablet 1 TABLET PO (08:02)
[2023-07-18] MEDS: Meloxicam 7.5 MG Tablet PO ×2 (08:02→21:33)
[2023-07-18] MEDS: Polyethylene Glycol 3350 17 GM PACKET PO ×2 (08:02→21:31)
[2023-07-18] MEDS: Menthol/Lanolin/Calamine/Znox 113 GM Tube 1 APPLIC TOPICAL ×2 (08:04→21:33)
[2023-07-18] MEDS: Lidocaine 5% Patch 1 PATCH TOPICAL (10:50)
[2023-07-18] MEDS: Triamcinolone Ointment 1 APPLIC TUBE TOPICAL (10:50)
[2023-07-18] MEDS: Neuropathy Pain Cream Compound 60 CLICK TUBE TOPICAL ×2 (10:50→21:30)
[2023-07-18] MEDS: Doxycycline 100 MG CAPSULE PO ×2 (10:51→21:32)
[2023-07-18] MEDS: Lisinopril 10 MG Tablet PO ×2 (10:52→21:33)
[2023-07-18] MEDS: Pantoprazole Sodium 20 MG Tablet PO (10:52)
[2023-07-18 12:45] VITALS: BMI 32.8
[2023-07-18 19:48] VITALS: BP 170/83; PULSE 94; RESP 16; TEMP 36.9; O2SAT 95
[2023-07-18 20:03] VITALS: BMI 32.8
[2023-07-18 20:45] VITALS: BP 176/92; PULSE 97
[2023-07-18] MEDS: Mirtazapine 30 MG Tablet PO (21:31)
[2023-07-18] MEDS: Latanoprost 0.005% 1 Bottle 1 DRP EACH EYE (21:31)
[2023-07-18] MEDS: Hydrocortisone 2.5% Crm 1 APPLIC TOPICAL (21:31)
[2023-07-18] MEDS: QUEtiapine 25 MG Tablet 12.5 MG PO (21:33)
[2023-07-18 23:11] VITALS: BP 170/90
[2023-07-18 23:29] VITALS: BP 170/90; PULSE 96
[2023-07-18] MEDS: hydrALAZINE 25 MG Tablet PO (23:29)
[2023-07-19 00:30] VITALS: BP 155/85; PULSE 92
[2023-07-19 07:00] VITALS: BMI 32.3
[2023-07-19 08:00] VITALS: BP 144/76; PULSE 82; RESP 16; TEMP 36.5; O2SAT 95
[2023-07-19] MEDS: Senna Tablet 2 TABLET PO ×2 (08:32→21:01)
[2023-07-19] MEDS: Multivitamins,Ther W-Minerals Tablet 1 TABLET PO (08:32)
[2023-07-19] MEDS: levETIRAcetam 500 MG Tablet PO ×2 (08:33→21:00)
[2023-07-19] MEDS: Neuropathy Pain Cream Compound 60 CLICK TUBE TOPICAL ×2 (08:33→20:58)
[2023-07-19] MEDS: Aspirin 81 MG TAB.CHEW PO (08:33)
[2023-07-19] MEDS: Meloxicam 7.5 MG Tablet PO ×2 (08:34→21:00)
[2023-07-19] MEDS: Polyethylene Glycol 3350 17 GM PACKET PO ×2 (08:35→21:00)
[2023-07-19] MEDS: Lisinopril 20 MG Tablet PO (08:38)
[2023-07-19] MEDS: Lidocaine 5% Patch 1 PATCH TOPICAL (08:38)
[2023-07-19] MEDS: Triamcinolone Ointment 1 APPLIC TUBE TOPICAL (08:44)
[2023-07-19] MEDS: VILAZODONE HYDROCHLORIDE 10 MG TABLET PO (08:45)
[2023-07-19] MEDS: Pantoprazole Sodium 20 MG Tablet PO (08:45)
[2023-07-19] MEDS: Menthol/Lanolin/Calamine/Znox 113 GM Tube 1 APPLIC TOPICAL ×2 (10:19→20:59)
[2023-07-19] MEDS: Doxycycline 100 MG CAPSULE PO ×2 (10:20→21:00)
[2023-07-19 11:33] VITALS: BMI 32.3
[2023-07-19 15:35] VITALS: BP 179/79; PULSE 100
[2023-07-19] MEDS: hydrALAZINE 25 MG Tablet PO (15:35)
[2023-07-19 17:05] VITALS: BP 148/80
[2023-07-19 19:46] VITALS: PULSE 93; RESP 16; TEMP 36.8; O2SAT 94
[2023-07-19 19:47] VITALS: BMI 32.3
[2023-07-19 20:58] VITALS: BP 148/77; PULSE 98; TEMP 36.7
[2023-07-19] MEDS: QUEtiapine 25 MG Tablet 12.5 MG PO (20:59)
[2023-07-19] MEDS: Mirtazapine 30 MG Tablet PO (21:00)
[2023-07-19] MEDS: Latanoprost 0.005% 1 Bottle 1 DRP EACH EYE (21:03)
[2023-07-20 06:00] VITALS: BMI 32.1
[2023-07-20] MEDS: Alendronate Sodium 70 MG Tablet PO (06:39)
[2023-07-20 07:19] VITALS: BP 128/88; PULSE 105; RESP 15; TEMP 36.1; O2SAT 92
[2023-07-20] MEDS: Lisinopril 20 MG Tablet PO (08:02)
[2023-07-20] MEDS: Doxycycline 100 MG CAPSULE PO ×2 (08:03→21:44)
[2023-07-20] MEDS: levETIRAcetam 500 MG Tablet PO ×2 (08:03→21:44)
[2023-07-20] MEDS: VILAZODONE HYDROCHLORIDE 10 MG TABLET PO (08:03)
[2023-07-20] MEDS: Multivitamins,Ther W-Minerals Tablet 1 TABLET PO (08:03)
[2023-07-20] MEDS: Aspirin 81 MG TAB.CHEW PO (08:03)
[2023-07-20] MEDS: Triamcinolone Ointment 1 APPLIC TUBE TOPICAL (08:03)
[2023-07-20] MEDS: Pantoprazole Sodium 20 MG Tablet PO (08:03)
[2023-07-20] MEDS: Meloxicam 7.5 MG Tablet PO ×2 (08:04→21:44)
[2023-07-20] MEDS: Senna Tablet 2 TABLET PO ×2 (08:04→21:44)
[2023-07-20] MEDS: Neuropathy Pain Cream Compound 60 CLICK TUBE TOPICAL ×2 (08:04→19:57)
[2023-07-20] MEDS: Polyethylene Glycol 3350 17 GM PACKET PO ×2 (08:04→21:43)
[2023-07-20] MEDS: Lidocaine 5% Patch 1 PATCH TOPICAL (08:04)
[2023-07-20] MEDS: Menthol/Lanolin/Calamine/Znox 113 GM Tube 1 APPLIC TOPICAL ×2 (08:05→19:54)
--- NOTE | 2023-07-20 10:36 | PN_ITS ---
Subjective Subjective Day #4 of doxycycline for MRSVíctor cystitis. Afebrile VSS-blood pressures were elevated over the weekend and as needed hydralazine 25 mg was added by the hospitalist. The last dose of hydralazine was yesterday at 3:30 PM. Lisinopril was increased to 20 mg p.o. daily. Current blood pressure is 128/88 with a pulse of 105. Maintaining appropriate oxygen saturation on RA Oral intake is poor to fair. Intake has picked up some the past 2 days. Postvoid residuals since 07/18/2023 at 6 AM have been all less than 100 cc. Having regular bowel movements now. She has been voiding regularly with no incontinence reported for the past couple days. Discussed with nursing - no seizures. Reviewed the PT/OT/ST notes Medication list reviewed. ESR was 18 and CRP was 17.7 on 07/17/2023. AEC was 1,186 on Thursday. No longer c/o pruritus. Sherri and Ray both say that they were told at [facility] that the rash on her back was due to [place]'s disease? Grave's disease? this would be an odd place for dermatitis due to Grave's disease. Sherri tells me that the rash on the back is doing better and she denies pruritus. Sherri denies lightheadedness, vertigo, CP, SOB at rest, SOB with exertion, cough, nausea, vomiting, abd pain, diarrhea, constipation, dysuria, calf pain and ankle swelling. Still having difficulty seeing things on her left side and has to be reminded to scan to the left. Feels tired at the end of the day but, endurance is improving. Denies rash anywhere else but on the back. Denies vaginal itching or burning and also denies sore mouth, bad taste in her mouth and painful swallowing. Objective Data Objective Data Vital Signs: Vital Signs Temp Pulse Resp BP Pulse Ox O2 Del Method O2 Flow Rate 96.9 F L 105 H 15 128/88 H 92 Room Air 2 07/20/23 07:19 07/20/23 07:19 07/20/23 07:19 07/20/23 07:19 07/20/23 07:19 07/20/23 07:19 07/20/23 06:31 FiO2 94 07/11/23 19:30 Oxygen Flow Rate (L/min) 2 Oxygen Delivery Method Room Air Weight: 187 lb 4.8 oz Body Mass Index (BMI) 32.1 Intake & Output: Intake and Output for Last 24 Hours 07/18/23 07/19/23 07/20/23 23:59 23:59 23:59 Intake Total 1075 / 1075 1370 / 1370 360 / 360 Output Total 2029 2150 / 2150 800 / 800 Balance -955 / -955 -780 / -780 -440 / -440 Lab / Micro Data 07/21/23 05:50 07/21/23 05:50 Micro: Microbiology 07/14/23 18:00 Urine Catheter - Catheter Urine Culture - Final Staphylococcus epidermidis 07/07/23 15:00 Urine Catheter - Catheter Urine Culture - Final Culture exhibits no growth. 07/09/23 03:15 Stool Stool Occult Blood (BHARAT) - Final Physical Exam Const alert and oriented x3 General Appearance: cooperative HEENT head/scalp atraumatic HEENT Narrative: No coating of the tongue or redness of the buccal mucosa. Resp normal respiratory effort and clear to auscultation bilaterally Resp Narrative: No conversational dyspnea Effort and Inspection: Negative for tachypneic Cardio regular rate, regular rhythm and no gallops GI normal to inspection, nondistended, normoactive bowel sounds, soft to palpation and non-tender GI Narrative: No guarding with palpation. No evidence of any rash on the abdomen. Extremity no calf tenderness General Extremity: Negative for edema Skin Wound Narrative: the rash on her back is much better. Rare papular lesion, some with scabs from scratching. No sign infection. Psych cooperative Psych Narrative: No tears. Pleasant and not irritable. upbeat attitude. Always willing to do therapy. Relates well to staff and other patients. No hallucinations. Appearance: appropriate Attitude: No agitated Activity / Motor Behavior: Negative for restless Assessment & Plan Assessment/Plan (1) Debility: (2) Ischemic cerebrovascular accident (CVA): (3) Subarachnoid hemorrhage: (4) Closed TBI (traumatic brain injury): QUALIFIERS: Encounter type: subsequent encounter Loss of consciousness presence/duration: unknown LOC status Qualified Code(s): S06.9XAD - Unspecified intracranial injury with loss of consciousness status unknown, subsequent encounter (5) Hemianopia of left eye: (6) Acute left hemiparesis: (7) Acute retention of urine: (8) Obstructive sleep apnea of adult: (9) Cystitis: (10) Dermatitis: (11) Eosinophilia, unspecified: QUALIFIERS: Eosinophilia type: unspecified eosinophilia Qualified Code(s): 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 AEC has increased since the Tetracycline was started but, the rash is improving with t opical steroids and it has not spread to any other area of the body. (12) Uncontrolled hypertension: (13) Hypercalcemia: PLAN: Plan 1. Continue therapy. she is making good progress 2. Recheck a BMP and a CBC with diff in the AM. 3. Continue Hydralazine PRN for increased BP 4. Consider adding a beta domo. 5. Will refer to hematology at [facility] for follow up on Eosinophilia. 6. Will need referral to endocrinology at discharge from rehab to be evaluated for hypercalcemia with increased parathyroid hormone level. Charges/Coding Visit Charges Inpatient E&M: 62696 Subs Hosp L2
[2023-07-20 14:10] VITALS: BMI 32.1
[2023-07-20 15:40] VITALS: BP 165/86
[2023-07-20 15:43] VITALS: BP 165/86; PULSE 92
[2023-07-20] MEDS: hydrALAZINE 25 MG Tablet PO ×2 (15:43→19:35)
[2023-07-20 19:30] VITALS: BP 168/86; PULSE 89; RESP 17; TEMP 36.3; O2SAT 93
[2023-07-20 19:35] VITALS: BP 168/86; PULSE 89
[2023-07-20] MEDS: QUEtiapine 25 MG Tablet 12.5 MG PO (19:35)
[2023-07-20] MEDS: Latanoprost 0.005% 1 Bottle 1 DRP EACH EYE (19:58)
[2023-07-20] MEDS: Mirtazapine 30 MG Tablet PO (21:43)
[2023-07-21] VITALS (7 sets, daily range): BP systolic 139–175; BP diastolic 59–82; PULSE 78–91; RESP 16–17; TEMP 36.6–36.8; O2SAT 94–96; BMI 31.8
[2023-07-21] MEDS: hydrALAZINE 25 MG Tablet PO ×2 (05:27→18:03)
[2023-07-21 06:04] LABS: Absolute Lymphocyte Count 1.89 X10^3/uL (0.83-4.51); Absolute Neutrophil Count 4.7 X10^3/uL (2.0-7.7); Basophil# 0.11 X10^3/uL; Basophil% 1.3 % (0-1); Eosinophil# 1.36 X10^3/uL; Eosinophils% 15.7 % (0-5); Hematocrit 36.2 % (37-47); Hemoglobin 11.2 g/dL (12.0-15.0); Lymphocyte # 1.89 X10^3/ul (0.83-4.51); Lymphocyte % 21.9 % (19-41); Mean Corp Hgb Conc 30.9 g/dL (32-36); Mean Corpuscular Hgb 30.5 pg (27.0-32.0); Mean Corpuscular Volume 98.6 fL (81-99); Mean Platelet Vol. 10.5 fl (6.2-12.0); Monocyte# 0.51 X10^3/uL; Monocyte% 5.9 % (0-10); NRBC Flagged by Analyzer 0 % (0-5); Neutrophil # 4.74 X10^3/uL (2.7-7.7); Neutrophil % 54.9 % (47-70); Platelet Count 370 K/mm3 (150-450); RBC Distribution Width CV 14.4 % (11.6-14.6); RBC Distribution Width SD 52.5 fl (35.1-43.9); Red Blood Count 3.67 M/mm3 (4.2-5.4); White Blood Count 8.6 K/mm3 (4.4-11.0)
[2023-07-21 06:39] LABS: Anion Gap 4 (5-15); BUN 12 mg/dL (7-18); BUN/Creat Ratio 14.3 RATIO (10-20); Calcium,Total 10.1 mg/dL (8.5-10.1); Chloride 110 mmol/L (98-107); Creatinine, Serum 0.84 mg/dL (0.55-1.02); EST Glomerular Filtration Rate 71 mL/min (>60); Est Glom Filt Rate - Afr Amer 85 mL/min (>60); Estimated Creatinine Clearance 61.88 ml/min; Glucose 92 mg/dL (74-106); Potassium 3.9 mmol/L (3.5-5.1); Sodium Level 143 mmol/L (136-145)
[2023-07-21] MEDS: Neuropathy Pain Cream Compound 60 CLICK TUBE TOPICAL ×2 (07:40→22:11)
[2023-07-21] MEDS: Triamcinolone Ointment 1 APPLIC TUBE TOPICAL (07:40)
[2023-07-21] MEDS: Lisinopril 20 MG Tablet PO (07:41)
[2023-07-21] MEDS: Pantoprazole Sodium 20 MG Tablet PO (07:41)
[2023-07-21] MEDS: Polyethylene Glycol 3350 17 GM PACKET PO ×2 (07:41→22:12)
[2023-07-21] MEDS: Lidocaine 5% Patch 1 PATCH TOPICAL (07:41)
[2023-07-21] MEDS: Meloxicam 7.5 MG Tablet PO ×2 (07:41→22:12)
[2023-07-21] MEDS: levETIRAcetam 500 MG Tablet PO ×2 (07:41→22:13)
[2023-07-21] MEDS: Senna Tablet 2 TABLET PO ×2 (07:41→22:11)
[2023-07-21] MEDS: Aspirin 81 MG TAB.CHEW PO (07:42)
[2023-07-21] MEDS: Multivitamins,Ther W-Minerals Tablet 1 TABLET PO (07:42)
[2023-07-21] MEDS: VILAZODONE HYDROCHLORIDE 10 MG TABLET PO (07:42)
[2023-07-21] MEDS: Menthol/Lanolin/Calamine/Znox 113 GM Tube 1 APPLIC TOPICAL ×2 (07:42→22:16)
[2023-07-21] MEDS: Doxycycline 100 MG CAPSULE PO ×2 (07:42→22:13)
--- NOTE | 2023-07-21 14:06 | PCM.PROGNOTE ---
Subjective Subjective Afebrile VSS-blood pressure today is 157/77. BP was elevated last night and failed to come down adequately with 10 mg of hydralazine. Hydralazine dose was increased to 25 mg p.o. every 6 hours as needed systolic.....the last dose was this AM Maintaining appropriate oxygen saturation on RA Oral intake is improving again Discussed with nursing - no problems that need addressed Reviewed the PT/OT/ST notes Medication list reviewed. All lab drawn this morning was personally reviewed. Hemoglobin is stable at 11.2. White blood cell count is normal. Platelets are within normal limits. Absolute eosinophil count today is 1290. Sodium is normal at 143 and the potassium is stable at 3.9. The BUN is 12 with a creatinine of 0.84 which is good for her. Calcium is 10.1 and the albumin is currently pending. Denies cephalgia, lightheadedness, vertigo, chest pain, cough, shortness of breath, palpitations, nausea/vomiting, abdominal pain, dysuria and calf pain. She is c/o decreased appetite. Denies pain. Very cooperative with therapy and working hard. Affect is normal and she is not tearful or anxious. Objective Data Objective Data Vital Signs: Vital Signs Temp Pulse Resp BP Pulse Ox O2 Del Method O2 Flow Rate 97.9 F 78 17 157/77 H 96 Room Air 2 07/21/23 09:33 07/21/23 09:33 07/21/23 09:33 07/21/23 09:33 07/21/23 09:33 07/21/23 09:33 07/20/23 06:31 FiO2 94 07/11/23 19:30 Oxygen Flow Rate (L/min) 2 Oxygen Delivery Method Room Air Weight: 186 lb 12.8 oz Body Mass Index (BMI) 31.8 Intake & Output: Intake and Output for Last 24 Hours 07/19/23 07/20/23 07/21/23 23:59 23:59 23:59 Intake Total 1370 / 1370 1080 / 1080 800 / 800 Output Total 2150 / 2150 1999 / 1999 700 / 700 Balance -780 / -780 -920 / -920 100 / 100 Lab / Micro Data 07/21/23 05:50 07/21/23 05:50 Labs: Laboratory Results - last 24 hr 07/21/23 05:50: WBC 8.6, RBC 3.67 L, Hgb 11.2 L, Hct 36.2 L, MCV 98.6, MCH 30.5, MCHC 30.9 L, RDW Std Deviation 52.5 H, RDW Coeff of Kenisha 14.4, Plt Count 370, MPV 10.5, Immature Gran % (Auto) 0.300, Neut % (Auto) 54.9, Lymph % (Auto) 21.9, Hamilton % (Auto) 5.9, Eos % (Auto) 15.7 H, Baso % (Auto) 1.3 H, Absolute Neuts (auto) 4.7, Absolute Lymphs (auto) 1.89, Nucleated RBC % 0, Sodium 143, Potassium 3.9, Chloride 110 H, Carbon Dioxide 29.0, Anion Gap 4 L, BUN 12, Creatinine 0.84, Estim Creat Clear Calc 61.88, Est GFR (MDRD) Af Amer 85, Est GFR (MDRD) Non-Af 71, BUN/Creatinine Ratio 14.3, Glucose 92, Calcium 10.1 Micro: Microbiology 07/14/23 18:00 Urine Catheter - Catheter Urine Culture - Final Staphylococcus epidermidis 07/07/23 15:00 Urine Catheter - Catheter Urine Culture - Final Culture exhibits no growth. 07/09/23 03:15 Stool Stool Occult Blood (BHARAT) - Final Physical Exam Const alert, oriented x3, no apparent distress and well nourished General Appearance: cooperative and well developed Orientation / Consciousness: Negative for confused Resp normal respiratory effort, normal air movement and clear to auscultation bilaterally Resp Narrative: No conversational dyspnea Effort and Inspection: Negative for tachypneic Cardio regular rate, regular rhythm, no murmurs, no rub and no gallops Cardio Narrative: No ectopy GI normal to inspection, nondistended, normoactive bowel sounds, soft to palpation and non-tender GI Narrative: No guarding with palpation. No evidence of any rash on the abdomen. Extremity no calf tenderness Extremity Narrative: trace edema of the Left ankle. General Extremity: Negative for clubbing, cyanosis or edema Skin Wound Narrative: the rash on her back is much better. Rare papular lesion, some with scabs from scratching. No sign infection. Psych cooperative, affect normal and denies suicidal ideation Psych Narrative: No tears. Pleasant and not irritable. upbeat attitude. Always willing to do therapy. Relates well to staff and other patients. No hallucinations. Appearance: appropriate Attitude: No agitated Activity / Motor Behavior: Negative for restless Thought Content: No delusion(s) and No hallucination(s) Assessment & Plan Assessment/Plan (1) Debility: (2) Ischemic cerebrovascular accident (CVA): (3) Subarachnoid hemorrhage: (4) Closed TBI (traumatic brain injury): QUALIFIERS: Encounter type: subsequent encounter Loss of consciousness presence/duration: unknown LOC status Qualified Code(s): S06.9XAD - Unspecified intracranial injury with loss of consciousness status unknown, subsequent encounter (5) Hemianopia of left eye: (6) Acute left hemiparesis: (7) Acute retention of urine: PLAN: She is able to tell when she has to urinate at times now and has been urinating on her own. Still retaining at times and has to have straight cath. Will continue to straight cath PRN. (8) Obstructive sleep apnea of adult: (9) Cystitis: PLAN: Continue tetracycline. 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 Will continue the hydrocortisone cream while she is on Tetracycline. (11) Eosinophilia, unspecified: QUALIFIERS: Eosinophilia type: unspecified eosinophilia Qualified Code(s): 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 AEC has increased since the Tetracycline was started but, the rash is improving with topical steroids and it has not spread to any other area of the body. (12) Uncontrolled hypertension: (13) Hypercalcemia: PLAN: She has an elevated PTH.......denies any hx of hyperparathyroidism or Grave's disease. PLAN: Plan 1. Continue therapy 2. Continue hydralazine every 6 hours as needed for systolic greater than 170 or diastolic greater than 90 3. Add Lopressor 25 mg p.o. twice daily to the current drug regimen. Hold for systolic less than 110 or heart rate less than 60. 4. Have nursing check the blood pressure at 6 AM, noon, 5 PM and at bedtime. Charges/Coding Visit Charges Inpatient E&M: 65604 Subs Hosp L2
[2023-07-21] MEDS: QUEtiapine 25 MG Tablet 12.5 MG PO (21:12)
[2023-07-21] MEDS: Metoprolol Tartrate 25 MG Tablet PO (22:18)
[2023-07-21] MEDS: Latanoprost 0.005% 1 Bottle 1 DRP EACH EYE (22:52)
[2023-07-21] MEDS: Mirtazapine 30 MG Tablet PO (22:52)
[2023-07-22] VITALS (7 sets, daily range): BP systolic 124–140; BP diastolic 67–70; PULSE 64–88; RESP 16; TEMP 36.6–36.7; O2SAT 96–98; BMI 32.0
[2023-07-22] MEDS: Lidocaine 5% Patch 1 PATCH TOPICAL (07:57)
[2023-07-22] MEDS: Lisinopril 20 MG Tablet PO (07:58)
[2023-07-22] MEDS: Metoprolol Tartrate 25 MG Tablet PO ×2 (07:58→21:26)
[2023-07-22] MEDS: levETIRAcetam 500 MG Tablet PO ×2 (07:58→21:26)
[2023-07-22] MEDS: Doxycycline 100 MG CAPSULE PO ×2 (07:58→21:26)
[2023-07-22] MEDS: Pantoprazole Sodium 20 MG Tablet PO (07:58)
[2023-07-22] MEDS: VILAZODONE HYDROCHLORIDE 10 MG TABLET PO (07:59)
[2023-07-22] MEDS: Multivitamins,Ther W-Minerals Tablet 1 TABLET PO (07:59)
[2023-07-22] MEDS: Menthol/Lanolin/Calamine/Znox 113 GM Tube 1 APPLIC TOPICAL ×2 (07:59→21:33)
[2023-07-22] MEDS: Aspirin 81 MG TAB.CHEW PO (07:59)
[2023-07-22] MEDS: Triamcinolone Ointment 1 APPLIC TUBE TOPICAL (07:59)
[2023-07-22] MEDS: Senna Tablet 2 TABLET PO ×2 (08:00→21:26)
[2023-07-22] MEDS: Polyethylene Glycol 3350 17 GM PACKET PO ×2 (08:00→21:27)
[2023-07-22] MEDS: Meloxicam 7.5 MG Tablet PO ×2 (08:00→21:26)
[2023-07-22] MEDS: Neuropathy Pain Cream Compound 60 CLICK TUBE TOPICAL ×2 (08:00→21:27)
[2023-07-22] MEDS: QUEtiapine 25 MG Tablet 12.5 MG PO (20:25)
[2023-07-22] MEDS: Mirtazapine 30 MG Tablet PO (21:27)
[2023-07-22] MEDS: Latanoprost 0.005% 1 Bottle 1 DRP EACH EYE (21:32)
[2023-07-23] VITALS (7 sets, daily range): BP systolic 133–181; BP diastolic 67–72; PULSE 60–76; RESP 16–17; TEMP 36.8; O2SAT 94–96; BMI 31.6; BMI 32.0
[2023-07-23] MEDS: Aspirin 81 MG TAB.CHEW PO (09:26)
[2023-07-23] MEDS: Senna Tablet 2 TABLET PO ×2 (09:26→20:42)
[2023-07-23] MEDS: Multivitamins,Ther W-Minerals Tablet 1 TABLET PO (09:26)
[2023-07-23] MEDS: VILAZODONE HYDROCHLORIDE 10 MG TABLET PO (09:27)
[2023-07-23] MEDS: Lidocaine 5% Patch 1 PATCH TOPICAL (09:27)
[2023-07-23] MEDS: Metoprolol Tartrate 25 MG Tablet PO ×2 (09:27→20:42)
[2023-07-23] MEDS: Pantoprazole Sodium 20 MG Tablet PO (09:27)
[2023-07-23] MEDS: Lisinopril 20 MG Tablet PO (09:27)
[2023-07-23] MEDS: Meloxicam 7.5 MG Tablet PO ×2 (09:27→20:42)
[2023-07-23] MEDS: Menthol/Lanolin/Calamine/Znox 113 GM Tube 1 APPLIC TOPICAL ×2 (09:27→20:46)
[2023-07-23] MEDS: Polyethylene Glycol 3350 17 GM PACKET PO ×2 (09:27→20:42)
[2023-07-23] MEDS: Doxycycline 100 MG CAPSULE PO (09:27)
[2023-07-23] MEDS: levETIRAcetam 500 MG Tablet PO ×2 (09:27→20:43)
[2023-07-23] MEDS: Neuropathy Pain Cream Compound 60 CLICK TUBE TOPICAL ×2 (09:28→20:43)
[2023-07-23] MEDS: Triamcinolone Ointment 1 APPLIC TUBE TOPICAL (09:28)
--- NOTE | 2023-07-23 12:25 | PCM.PROGNOTE ---
Subjective Subjective Sherri was seen on team rounds today. Afebrile VSS Maintaining appropriate oxygen saturation on RA Oral intake is variable. Weight is down approximately 7 pounds since admission to acute rehab. Discussed with nursing - no problems that need addressed. She had to have a straight cath this AM but, she has been voiding well with no significant urine retention since 2 PM on 07/20/2023. Reviewed the PT/OT/ST notes - Having more difficulty doing therapy the past day. Medication list reviewed. Family reports that she called her dtr this morning and was crying. She seems more depressed to them. She tells me that she feels more depressed. No hallucinations or delusions. Denies feeling anxious. Sleeping OK at night. Appetite is decreased recently. She denies pain, lightheadedness, palpitations, SOB, cough, dysuria. Objective Data Objective Data Vital Signs: Vital Signs Temp Pulse Resp BP Pulse Ox O2 Del Method O2 Flow Rate 98.2 F 72 16 139/68 H 94 Room Air 2 07/23/23 05:14 07/23/23 09:27 07/23/23 05:14 07/23/23 05:14 07/23/23 05:14 07/23/23 05:14 07/20/23 06:31 FiO2 94 07/11/23 19:30 Oxygen Flow Rate (L/min) 2 Oxygen Delivery Method Room Air Weight: 185 lb 7 oz Body Mass Index (BMI) 32.0 Intake & Output: Intake and Output for Last 24 Hours 07/21/23 07/22/23 07/23/23 23:59 23:59 23:59 Intake Total 1340 / 1340 1290 / 1290 120 / 120 Output Total 1700 / 1700 1300 / 1300 700 / 700 Balance -360 / -360 -10 / -10 -580 / -580 Lab / Micro Data 07/21/23 05:50 07/21/23 05:50 Micro: Microbiology 07/14/23 18:00 Urine Catheter - Catheter Urine Culture - Final Staphylococcus epidermidis 07/07/23 15:00 Urine Catheter - Catheter Urine Culture - Final Culture exhibits no growth. 07/09/23 03:15 Stool Stool Occult Blood (BHARAT) - Final Physical Exam Const alert and no apparent distress Constitutional Narrative: affect is flat today. Seems down and is not her usual cheerful self. General Appearance: cooperative Resp normal respiratory effort and clear to auscultation bilaterally Resp Narrative: No conversational dyspnea Effort and Inspection: Negative for tachypneic Cardio regular rate, regular rhythm, no murmurs and no gallops GI normal to inspection, nondistended, normoactive bowel sounds, soft to palpation and non-tender GI Narrative: No guarding with palpation. Denies flank pain and also denies back pain. No pain with palpation over the suprapubic area. Extremity no calf tenderness General Extremity: Negative for edema Skin Skin Narrative: rash on her back has mostly cleared up, General Skin Exam: no breakdown Psych Psych Narrative: Definitely more depressed than she has been but, this is a rather abrupt change. Appearance: appropriate Assessment & Plan Assessment/Plan (1) Debility: (2) Ischemic cerebrovascular accident (CVA): (3) Subarachnoid hemorrhage: (4) Closed TBI (traumatic brain injury): QUALIFIERS: Encounter type: subsequent encounter Loss of consciousness presence/duration: unknown LOC status Qualified Code(s): S06.9XAD - Unspecified intracranial injury with loss of consciousness status unknown, subsequent encounter (5) Uncontrolled hypertension: (6) Cystitis: (7) Depression: PLAN: Treatment resistant OR is there something else leading to the abrupt change in her demeanor? Was doing well earlier in the week with no crying. Just finished a 7 day course of Tetracycline for tx of UTI due to MRSVíctor. She is AF. Most recent WBC was normal. PLAN: Plan 1. Continue therapy 2. 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 1.5 mg M, W, F for a week and if tolerating will increase to daily Charges/Coding Visit Charges Inpatient E&M: 28198 Subs Hosp L1
--- NOTE | 2023-07-23 13:29 | CASEMGMT ---
Addendum entered by Frances Huff 07/24/23 11:58: SW phoned that insurance approved with [employer] 07/30. also provided SNF choice of [facility]. SW placed referral via [facility]. Will continue to follow. Addendum entered by Frances Huff 07/24/23 09:58: SW phoned [facility] to inquire about acceptance/denial. [facility] does not have immediate bed openings, but depending on pt's DC date, could accept. SW phoned to update on TCU and [facility] and request additional SNF choices in case pt does get DC date 07/25. requested to this worker speak with pt on choices. SW attempted to speak with pt, but after speaking with nurse, this worker was informed about events overnight and pt is not in good condition to make those decisions/be spoken to today. SW phoned to update, whom was aware of night's events, and requested to make a decision of other SNFs. However, continued stay is requested from the insurance update today. expressed understanding. SW will continue to follow. Addendum entered by Frances Huff 07/23/23 14:37: TCU denied Original Note: Social Work IDT met with patient and for Team meeting. Discussed patient's progress in PT/OT/ST/SN. Educated to [facility] insurance with [employer] 07/24 and continued stay is not guaranteed with each review. IDT continues to recommend SNF stay at DC. SW requested pt/ provide SNF choices to place referrals. 1. [facility], 2. [facility]. SW requested additional choices as both of those SNFs tend to have waitlists. Pt/ to discuss and notify this worker. SW placed referrals via [facility]. Will await outcome. SW will continue to follow. JUAN Kam
[2023-07-23] MEDS: hydrALAZINE 25 MG Tablet PO (16:35)
[2023-07-23] MEDS: Mirtazapine 30 MG Tablet PO (20:43)
[2023-07-23] MEDS: QUEtiapine 25 MG Tablet 12.5 MG PO (20:43)
[2023-07-23] MEDS: Latanoprost 0.005% 1 Bottle 1 DRP EACH EYE (20:43)
--- NOTE | 2023-07-24 | NURSING ---
Patient has been restless and despite multiple attempts to redirect, position change, offer food/fluids, toileting provided, back rub given she remains agitated with staff and attempted self transfers. PRN haldol x1 given for agitation per hospitalist.
[2023-07-24] MEDS: Haloperidol Lactate 5 MG/ML Vial 2 MG IM (00:10)
[2023-07-24 00:21] VITALS: BMI 32.0
--- NOTE | 2023-07-24 02:09 | NURSING ---
Eyes are closed and she is calm and cooperative but still awake, moving feet and legs up and down in the bed.
[2023-07-24 05:22] VITALS: BMI 31.6
[2023-07-24 05:50] VITALS: BP 134/73; PULSE 77; RESP 16; TEMP 36.6; O2SAT 97
--- NOTE | 2023-07-24 06:30 | NURSING ---
Patient easily aroused, bed bath given, pleasant. Will continue to monitor.
[2023-07-24] MEDS: Neuropathy Pain Cream Compound 60 CLICK TUBE TOPICAL ×2 (08:40→20:40)
[2023-07-24 08:41] VITALS: PULSE 74
[2023-07-24] MEDS: Multivitamins,Ther W-Minerals Tablet 1 TABLET PO (08:41)
[2023-07-24] MEDS: levETIRAcetam 500 MG Tablet PO ×2 (08:41→20:39)
[2023-07-24] MEDS: Aspirin 81 MG TAB.CHEW PO (08:41)
[2023-07-24] MEDS: Metoprolol Tartrate 25 MG Tablet PO ×2 (08:41→20:39)
[2023-07-24] MEDS: Pantoprazole Sodium 20 MG Tablet PO (08:41)
[2023-07-24] MEDS: VILAZODONE HYDROCHLORIDE 10 MG TABLET PO (08:41)
[2023-07-24] MEDS: Senna Tablet 2 TABLET PO ×2 (08:41→20:40)
[2023-07-24] MEDS: Lidocaine 5% Patch 1 PATCH TOPICAL (08:41)
[2023-07-24] MEDS: Meloxicam 7.5 MG Tablet PO ×2 (08:41→20:39)
[2023-07-24] MEDS: Menthol/Lanolin/Calamine/Znox 113 GM Tube 1 APPLIC TOPICAL ×2 (08:43→20:39)
[2023-07-24] MEDS: Polyethylene Glycol 3350 17 GM PACKET PO ×2 (08:43→20:38)
[2023-07-24] MEDS: CARIPRAZINE HCL 1.5 MG CAPSULE PO (08:48)
[2023-07-24] MEDS: Hydrocortisone 2.5% Crm 1 APPLIC TOPICAL ×2 (08:49→09:00)
[2023-07-24] MEDS: Lisinopril 20 MG Tablet PO (09:00)
[2023-07-24] MEDS: Triamcinolone Ointment 1 APPLIC TUBE TOPICAL (10:00)
[2023-07-24 10:46] LABS: Red Blood Cells-Urine 0 SEEN /hpf (0-5)
[2023-07-24 10:50] LABS: Color, Urine Yellow (Yellow); Glucose, Dipstick Normal (Normal); Ketone-Dipstick Negative (Negative); Leukocyte Esterase-Dipstick 500 /ul (Negative); Nitrite-Dipstick Positive (Negative); Occult Blood-Urine 25 /ul (Negative); Protein-Dipstick 30 mg/dl (Negative); Urine Bilirubin Dipstick Negative (Negative); Urine Clarity Cloudy (Clear); Urine Urobilinogen Normal (Normal)
[2023-07-24 10:57] VITALS: BMI 31.6
[2023-07-24 11:04] LABS: Bacteria 4+ /hpf (None Seen); Mucous, Urine 1+ /hpf (<or=2+); Squamous Epithelial Cells - UA 0-5 SEEN /hpf (5-10); White Blood Cells 10-25 SEEN /hpf (0-5)
--- NOTE | 2023-07-24 11:10 | PCM.PROGNOTE ---
Subjective Subjective Afebrile VSS - BP's are erratic....they had been doing better with the addition of Lopressor to the drug regimen 2 days ago. Yesterday at 1700 she had to have a dose of Hydralazine for BP of 181/67. Current BP is 134/74. Heart rate is within normal limits. Maintaining appropriate oxygen saturation on RA Oral intake is poor. Fluid balance yesterday was -1320. She only took 480 cc of fluid yesterday. Discussed with nursing - Became very agitated last night. Was hallucinating and confused. She required a sitter for a few hours. Hospitalist ordered 2 mg of IM Haldol and after about 2 hours she calmed down and went to sleep. Called her dtr in the middle of the night and wanted her to come and pick her up and take her home. Reviewed the PT/OT/ST notes Medication list reviewed. Got her first dose of Vraylar this AM for tx resistant depression. Sherri tells me today that she feels betrayed by her family....will not tell me why. Not hallucinating at the present time. She is pale and looks angry and this is new for her. She denies cough, ST, CP, SOB, dysuria, flank pain, nausea calf pain. She continues to complain she has no appetite. No vomiting. PVR's have been good with rare exception. Rarely needs straight cath now. Objective Data Objective Data Vital Signs: Vital Signs Temp Pulse Resp BP Pulse Ox O2 Del Method O2 Flow Rate 97.9 F 74 16 134/73 H 97 Room Air 2 07/24/23 05:50 07/24/23 08:41 07/24/23 05:50 07/24/23 05:50 07/24/23 05:50 07/24/23 05:50 07/20/23 06:31 FiO2 94 07/11/23 19:30 Oxygen Flow Rate (L/min) 2 Oxygen Delivery Method Room Air Weight: 185 lb 3.2 oz Body Mass Index (BMI) 31.6 Intake & Output: Intake and Output for Last 24 Hours 07/22/23 07/23/23 07/24/23 23:59 23:59 23:59 Intake Total 1290 / 1290 480 / 480 240 / 240 Output Total 1300 / 1300 1800 / 1800 950 / 950 Balance -10 / -10 -1320 / -1320 -710 / -710 Lab / Micro Data 07/21/23 05:50 07/21/23 05:50 Labs: Laboratory Results - last 24 hr 07/24/23 09:55: Urine Color Yellow, Urine Clarity Cloudy, Urine pH 8.0, Ur Specific Bantam 1.010, Urine Protein 30 H, Urine Glucose (UA) Normal, Urine Ketones Negative, Urine Occult Blood 25 H, Urine Nitrite Positive H, Urine Bilirubin Negative, Urine Urobilinogen Normal, Ur Leukocyte Esterase 500 H, Urine RBC 0 SEEN, Urine WBC 10-25 SEEN, Ur Squamous Epith Cells 0-5 SEEN, Urine Bacteria 4+, Urine Mucus 1+ Micro: Microbiology 07/14/23 18:00 Urine Catheter - Catheter Urine Culture - Final Staphylococcus epidermidis 07/07/23 15:00 Urine Catheter - Catheter Urine Culture - Final Culture exhibits no growth. 07/09/23 03:15 Stool Stool Occult Blood (BHARAT) - Final Physical Exam Const alert Constitutional Narrative: angry/agitated. Pale. She did cooperate with PT today but, she is confused and this is new. Orientation / Consciousness: confused HEENT HEENT Narrative: No evidence of thrush. Mouth: dry mucous membranes Neck supple Resp normal respiratory effort and clear to auscultation bilaterally Resp Narrative: No conversational dyspnea. Effort and Inspection: Negative for tachypneic or labored Cardio regular rate, regular rhythm and no gallops Cardio Narrative: No ectopy GI normal to inspection, nondistended, normoactive bowel sounds, soft to palpation and non-tender GI Narrative: No guarding with palpation. No pain with pressure over the suprapubic area. Inspection: Negative for abdominal distention Palpation: Negative for tender, guarding or rebound tenderness present Extremity no calf tenderness General Extremity: Negative for edema Skin Skin Narrative: pale today General Skin Exam: dry skin Neuro Neuro Narrative: no significant change other than confusion Psych Psych Narrative: Angry, agitated, delusional, confused, hallucinating last night per nursing. Thinks we are holding her captive. Abrupt change from 2 days ago. Assessment & Plan Assessment/Plan (1) Debility: (2) Subarachnoid hemorrhage: (3) Ischemic cerebrovascular accident (CVA): (4) Closed TBI (traumatic brain injury): QUALIFIERS: Encounter type: subsequent encounter Loss of consciousness presence/duration: unknown LOC status Qualified Code(s): S06.9XAD - Unspecified intracranial injury with loss of consciousness status unknown, subsequent encounter (5) AMS (altered mental status): PLAN: I suspect she has an infection. Depression does not explain the abrupt change in mental status. (6) Uncontrolled hypertension: PLAN: Continue the current drug regimen. Continue Hydralazine PRN as it works well for her. I suspect the increased BP yesterday was related to agitation. PLAN: Plan 1. Continue therapy 2. straight cath for UA 3. CBC with diff and CMP now. 4. Lactic acid now. 5. DC Seroquel and continue Vraylar. Charges/Coding Visit Charges Inpatient E&M: 17289 Subs Hosp L2
[2023-07-24 12:00] VITALS: BP 138/79; PULSE 68
[2023-07-24 12:37] LABS: Absolute Lymphocyte Count 1.94 X10^3/uL (0.83-4.51); Absolute Neutrophil Count 8.6 X10^3/uL (2.0-7.7); Basophil# 0.16 X10^3/uL; Basophil% 1.2 % (0-1); Eosinophil# 1.97 X10^3/uL; Eosinophils% 14.7 % (0-5); Hematocrit 40.4 % (37-47); Hemoglobin 12.7 g/dL (12.0-15.0); Lymphocyte # 1.94 X10^3/ul (0.83-4.51); Lymphocyte % 14.5 % (19-41); Mean Corp Hgb Conc 31.4 g/dL (32-36); Mean Corpuscular Hgb 30.5 pg (27.0-32.0); Mean Corpuscular Volume 97.1 fL (81-99); Mean Platelet Vol. 11.2 fl (6.2-12.0); Monocyte# 0.73 X10^3/uL; Monocyte% 5.4 % (0-10); NRBC Flagged by Analyzer 0 % (0-5); Neutrophil # 8.55 X10^3/uL (2.7-7.7); Neutrophil % 63.8 % (47-70); Platelet Count 404 K/mm3 (150-450); RBC Distribution Width CV 14.4 % (11.6-14.6); RBC Distribution Width SD 51.2 fl (35.1-43.9); Red Blood Count 4.16 M/mm3 (4.2-5.4); White Blood Count 13.4 K/mm3 (4.4-11.0)
[2023-07-24 12:51] LABS: Lactic Acid 1.9 mmol/L (0.4-1.9)
[2023-07-24 13:07] LABS: ALB/GLOB Ratio 0.9 RATIO (0.9-2.4); AST(SGOT) 28 U/L (15-37); Alanine Aminotransfer ALT/SGPT 30 U/L (13-56); Albumin, Serum 3.3 g/dL (3.2-5.0); Alkaline Phosphatase 118 U/L (45-117); Anion Gap 3 (5-15); BUN 11 mg/dL (7-18); BUN/Creat Ratio 10.4 RATIO (10-20); Calcium,Total 10.5 mg/dL (8.5-10.1); Chloride 112 mmol/L (98-107); Creatinine, Serum 1.06 mg/dL (0.55-1.02); EST Glomerular Filtration Rate 54 mL/min (>60); Est Glom Filt Rate - Afr Amer 65 mL/min (>60); Estimated Creatinine Clearance 48.82 ml/min; Globulin 3.7 g/dL (2.2-4.2); Glucose 98 mg/dL (74-106); Potassium 4.8 mmol/L (3.5-5.1); Sodium Level 143 mmol/L (136-145)
[2023-07-24] MEDS: Vancomycin HCl 1,250 MG in 0.9% Normal Saline (250mL Bag) 250 ML 167 MG IV (16:29)
[2023-07-24 16:50] VITALS: BP 169/80; PULSE 70; RESP 16; TEMP 36.6; O2SAT 99
--- NOTE | 2023-07-24 16:54 | PCM.RX.CS ---
Consult Antibiotic Management Pharmacy has been consulted to manage selected antibiotic: Vancomycin Type of Intervention Type of Consult: New start Suspected Infection Suspected Infection: Other (UTI) Prior Doses of Antibiotics Prior Doses of Antibiotics Received/Current Regimen: Vancomycin 1250 mg IV x1 given 07/24/23 @ 7173 Labs Labs: Sodium 143 mmol/L (136-145) 07/24/23 12:10 Potassium 4.8 mmol/L (3.5-5.1) 07/24/23 12:10 Chloride 112 mmol/L (98-107) H 07/24/23 12:10 Carbon Dioxide 28.0 mmol/L (21.0-32.0) 07/24/23 12:10 Anion Gap 3 (5-15) L 07/24/23 12:10 BUN 11 mg/dL (7-18) 07/24/23 12:10 Creatinine 1.06 mg/dL (0.55-1.02) H 07/24/23 12:10 Est GFR (MDRD) Af Amer 65 mL/min (>60) 07/24/23 12:10 Est GFR (MDRD) Non-Af 54 mL/min (>60) L 07/24/23 12:10 BUN/Creatinine Ratio 10.4 RATIO (10-20) 07/24/23 12:10 Glucose 98 mg/dL (74-106) 07/24/23 12:10 Microbiology Microbiology: Microbiology 07/14/23 18:00 Urine Catheter - Catheter Urine Culture - Final Staphylococcus epidermidis 07/07/23 15:00 Urine Catheter - Catheter Urine Culture - Final Culture exhibits no growth. 07/09/23 03:15 Stool Stool Occult Blood (BHARAT) - Final Dosing Weight Weight used for dosin lb 3.013 oz Estimated Creatinine Clearance Estimated Creatinine Clearance: ~62 Goal Trough Goal Trough: 10-15 mcg/mL Pharmacy Plan for Drug Dosing Pharmacy Plan for Drug Dosing: Vancomycin 1250 mg IV x 1, followed by 750 mg Q12H, trough prior to the 4th dose. Pharmacy Service will continue to monitor and adjust dosing as required. Follow-Up Labs Follow-Up Labs: Trough: Vancomycin Date/Time Labs Ordered Labs to be done on [date and time ordered]: 07/26/23 @ 6337
[2023-07-24] MEDS: levoFLOXacin IV 250 MG/50 ML BAG 50 MG IV (18:19)
[2023-07-24] MEDS: Lactated Ringers 1,000 ML 75 ML IV (18:20)
[2023-07-24 20:26] VITALS: BP 127/56; PULSE 76; RESP 16; TEMP 36.6; O2SAT 96
[2023-07-24 20:39] VITALS: PULSE 78
[2023-07-24] MEDS: Mirtazapine 30 MG Tablet PO (20:40)
[2023-07-24] MEDS: Latanoprost 0.005% 1 Bottle 1 DRP EACH EYE (20:40)
[2023-07-25] VITALS (16 sets, daily range): BP systolic 134–202; BP diastolic 50–113; PULSE 64–87; RESP 16–22; TEMP 36.6–37.1; O2SAT 95–99; BMI 32.2
[2023-07-25] MEDS: Vancomycin HCl 750 MG in 0.9% Normal Saline (250mL Bag) 250 ML 250 MG IV (04:51)
[2023-07-25] MEDS: Aspirin 81 MG TAB.CHEW PO (08:00)
[2023-07-25] MEDS: Multivitamins,Ther W-Minerals Tablet 1 TABLET PO (08:01)
[2023-07-25] MEDS: Lactated Ringers 1,000 ML 75 ML IV ×2 (08:05→22:58)
--- NOTE | 2023-07-25 08:34 | NURSING ---
0800 q4 vitals bp 195/86 p 73. Guerita with RN. 10am scheduled meds to be given now and will recheck
[2023-07-25] MEDS: Lisinopril 20 MG Tablet PO (08:38)
[2023-07-25] MEDS: VILAZODONE HYDROCHLORIDE 10 MG TABLET PO (08:39)
[2023-07-25] MEDS: Senna Tablet 2 TABLET PO (08:39)
[2023-07-25] MEDS: Neuropathy Pain Cream Compound 60 CLICK TUBE TOPICAL ×2 (08:40→21:25)
[2023-07-25] MEDS: Pantoprazole Sodium 20 MG Tablet PO (08:40)
[2023-07-25] MEDS: Metoprolol Tartrate 25 MG Tablet PO ×2 (08:41→21:24)
[2023-07-25] MEDS: Polyethylene Glycol 3350 17 GM PACKET PO (08:41)
[2023-07-25] MEDS: Meloxicam 7.5 MG Tablet PO ×2 (08:41→21:15)
[2023-07-25] MEDS: levETIRAcetam 500 MG Tablet PO ×2 (08:42→21:15)
[2023-07-25] MEDS: Lidocaine 5% Patch 1 PATCH TOPICAL (08:42)
[2023-07-25] MEDS: Triamcinolone Ointment 1 APPLIC TUBE TOPICAL (08:43)
[2023-07-25] MEDS: Menthol/Lanolin/Calamine/Znox 113 GM Tube 1 APPLIC TOPICAL ×2 (08:44→21:25)
[2023-07-25] MEDS: hydrALAZINE 25 MG Tablet PO ×2 (09:50→17:53)
[2023-07-25] MEDS: levoFLOXacin IV 250 MG/50 ML BAG 50 MG IV (10:33)
--- NOTE | 2023-07-25 14:25 | PN_ITS ---
Subjective Subjective Day #2 vancomycin and Levaquin Afebrile VSS-blood pressure is currently 134/50 however every afternoon it goes up and she needs as needed hydralazine. Will need to adjust antihypertensives. Maintaining appropriate oxygen saturation on RA Oral intake is variable. She took only 600 cc of fluid yesterday however IV fluids were started for intravascular volume depletion. Fluid balance was still -525 cc for yesterday. Overnight it was +305. Discussed with nursing -she had to have a straight cath this a.m. for retention. She has been Mostly good during the days, except for curb attendant and then she has needed straight cath a few times. Reviewed the PT/OT/ST notes Medication list reviewed. Prelim on the urine culture is greater than 100,000 colonies of a gram-negative nikolai. she has no complaints today. Slept well last night. No agitation and no confusion today. No SOB, CP, palpitations, cough, dysuria. No calf pain and no cephalgia. Not tearful today and no hallucinating. Objective Data Objective Data Vital Signs: Vital Signs Temp Pulse Resp BP Pulse Ox O2 Del Method O2 Flow Rate 98.7 F 68 16 134/50 H 95 Room Air 2 07/25/23 08:00 07/25/23 09:50 07/25/23 08:00 07/25/23 11:07 07/25/23 08:00 07/25/23 08:00 07/25/23 06:58 FiO2 94 07/11/23 19:30 Oxygen Flow Rate (L/min) 2 Oxygen Delivery Method Room Air Weight: 188 lb 12.8 oz Body Mass Index (BMI) 32.2 Intake & Output: Intake and Output for Last 24 Hours 07/23/23 07/24/23 07/25/23 23:59 23:59 23:59 Intake Total 480 / 480 925 / 925 1755 / 1755 Output Total 1800 / 1800 1450 / 1450 1450 / 1450 Balance -1320 / -1320 -525 / -525 305 / 305 Lab / Micro Data 07/25/23 20:32 07/25/23 22:32 Micro: Microbiology 07/24/23 09:55 Urine, Catheterized Urine Culture - Preliminary Gram negative nikolai 07/14/23 18:00 Urine Catheter - Catheter Urine Culture - Final Staphylococcus epidermidis 07/07/23 15:00 Urine Catheter - Catheter Urine Culture - Final Culture exhibits no growth. 07/09/23 03:15 Stool Stool Occult Blood (BHARAT) - Final Physical Exam Const alert, oriented x3 and no apparent distress General Appearance: cooperative Resp normal respiratory effort Auscultation: clear to auscultation bilaterally Cardio regular rate and regular rhythm GI normal to inspection, nondistended, normoactive bowel sounds Extremity no pedal edema Skin no rashes or lesions noted Assessment & Plan Assessment/Plan (1) Debility: (2) Ischemic cerebrovascular accident (CVA): (3) Subarachnoid hemorrhage: (4) Closed TBI (traumatic brain injury): QUALIFIERS: Encounter type: subsequent encounter Loss of consciousness presence/duration: unknown LOC status Qualified Code(s): S06.9XAD - Unspecified intracranial injury with loss of consciousness status unknown, subsequent encounter (5) AMS (altered mental status): (6) Cystitis: PLAN: Plan 1. Continue therapy 2. Discontinue vancomycin and continue Levaquin IV pending the results of the urine culture. 3. Repeat a CBC with differential, BMP and serum albumin on Thursday 4. Continue IV fluids 5. Continue Vraylar for treatment resistant depression 6. Add Procardia XL 30 mg daily to the current antihypertensive regimen. Continue lisinopril 20 mg p.o. daily and metoprolol 25 mg p.o. twice daily. 7. Continue hydralazine 25 mg p.o. every 6 hours as needed uncontrolled hypertension Charges/Coding Visit Charges Inpatient E&M: 96256 [facility] L1
[2023-07-25] MEDS: NIFEdipine 30 MG Tablet PO (15:03)
[2023-07-25] MEDS: Mirtazapine 30 MG Tablet PO (21:15)
[2023-07-25] MEDS: Latanoprost 0.005% 1 Bottle 1 DRP EACH EYE (21:15)
[2023-07-25] MEDS: Aspirin 81 MG TAB.CHEW 324 MG PO (22:24)
[2023-07-25] MEDS: Heparin Injection (Vial) 5,000 UNIT/ML VIAL 4000 UNIT IV (22:24)
[2023-07-25] MEDS: TICAGRELOR 90 MG TABLET 180 MG PO (22:24)
[2023-07-25 22:41] LABS: Absolute Lymphocyte Count 3.26 X10^3/uL (0.83-4.51); Absolute Neutrophil Count 6.4 X10^3/uL (2.0-7.7); Basophil# 0.16 X10^3/uL; Basophil% 1.2 % (0-1); Eosinophil# 2.24 X10^3/uL; Eosinophils% 17.1 % (0-5); Hemoglobin 12.2 g/dL (12.0-15.0); Lymphocyte # 3.26 X10^3/ul (0.83-4.51); Lymphocyte % 24.9 % (19-41); Mean Corp Hgb Conc 31.3 g/dL (32-36); Mean Corpuscular Hgb 29.8 pg (27.0-32.0); Mean Corpuscular Volume 95.1 fL (81-99); Mean Platelet Vol. 11.2 fl (6.2-12.0); Monocyte# 0.95 X10^3/uL; Monocyte% 7.3 % (0-10); NRBC Flagged by Analyzer 0 % (0-5); Neutrophil # 6.44 X10^3/uL (2.7-7.7); Neutrophil % 49.1 % (47-70); POSITIVE DIFFERENTIAL YES; Platelet Count 420 K/mm3 (150-450); RBC Distribution Width SD 48.5 fl (35.1-43.9); White Blood Count 13.1 K/mm3 (4.4-11.0)
[2023-07-25 22:42] LABS: Differential Indicated SCAN CRITERIA MET
--- NOTE | 2023-07-25 22:46 | ED.RN ---
pt unable to swallow baby ASA and Brilinta. Attempted and was spitting out. hospitalist aware. will also notify bed laborer with report at bedside.
[2023-07-25] MEDS: Morphine 2 MG/ML Syringe IV (22:57)
--- NOTE | 2023-07-25 22:57 | EKG12_ITS ---
Test Reason : CP Blood Pressure : / mmHG Vent. Rate : 081 BPM Atrial Rate : 081 BPM P-R Int : 192 ms QRS Dur : 084 ms QT Int : 364 ms P-R-T Axes : 037 -21 -18 degrees QTc Int : 422 ms Normal sinus rhythm Voltage criteria for left ventricular hypertrophy Anteroseptal infarct , possibly acute Lateral injury pattern ACUTE SC / STEMI Abnormal ECG Confirmed by TRACY DUBOSE, DERIC ([id number]), film and video editor MUNA SHAIKH ([id number]) on 07/28/2023 6:26:46 AM Referred By: Tracey Chacon Confirmed By:DERIC MOLINA MD
[2023-07-25 22:58] LABS: Anisocytosis RARE; Macrocytosis RARE; Platelet Estimate SLT INC (ADEQ); Red Cell Morphology N CHROM NORMAL (NORM C&C)
[2023-07-25 23:08] LABS: Phosphorus 2.3 mg/dL (2.5-4.9)
[2023-07-25 23:08] LABS: Anion Gap 5 (5-15); BUN 11 mg/dL (7-18); BUN/Creat Ratio 11.8 RATIO (10-20); Calcium,Total 10.9 mg/dL (8.5-10.1); Chloride 112 mmol/L (98-107); Creatinine, Serum 0.94 mg/dL (0.55-1.02); EST Glomerular Filtration Rate 62 mL/min (>60); Est Glom Filt Rate - Afr Amer 75 mL/min (>60); Glucose 108 mg/dL (74-106); Sodium Level 142 mmol/L (136-145); Troponin-I HS 62 pg/mL (3.0-54.0)
[2023-07-25 23:11] LABS: Bedside Glucose 111 mg/dL (74-106)
--- NOTE | 2023-07-25 23:50 | PCM.CONS.C ---
Assessment & Plan Assessment/Plan (1) Chest pain: QUALIFIERS: Chest pain type: unspecified Qualified Code(s): R07.9 - Chest pain, unspecified PLAN: Appears to have been secondary to Takotsubo cardiomyopathy. While her EKG changes were suggestive of ST elevation [place] there was no clear culprit for this. Patient admits to receiving some bad news today. Family mentioned that the patient was upset over the last 2 days that she could not go home yet. (2) Takotsubo cardiomyopathy: PLAN: It appears that patient was on lisinopril 20 mg p.o. daily and metoprolol 25 mg p.o. twice daily. It will be reasonable to continue the lisinopril at current dose and switch from metoprolol to carvedilol 12.5 mg p.o. twice daily. Check 2D echo on Thursday. Continue aspirin. Okay to discontinue Brilinta/Plavix. HPI Consult Data Date of Consult: 07/25/23 HPI Narrative Reason for Consultation: Chest pain and STEMI pattern on the EKG HPI Narrative: GILBERTO CAMPBELL, is a 72 F who was admitted to [facility] for rehab following a recent ischemic stroke that was treated with thrombolysis and ended up having hemorrhagic conversion. This evening patient started having chest pain and an EKG was obtained which showed anterior ST elevation [place] on the EKG. She was brought emergently to the [facility] and underwent coronary angiography which revealed patent large vessels with mild to moderate disease but no significant stenoses that could be considered culprit for her presentation. Her LV gram revealed an EF of around 20 to 25% with wall motion abnormalities consistent with Takotsubo cardiomyopathy. Patient is being admitted to the PCU for further management of her Takotsubo cardiomyopathy. [facility] Medical History Depression Gastric ulcer GERD (gastroesophageal reflux disease) Glaucoma History of breast cancer HTN (hypertension) Left hand weakness Left posterior interosseous nerve syndrome Lesion of right radial nerve Major depressive disorder, recurrent episode, moderate Obesity (BMI 30.0-34.9) Osteoarthritis Osteoporosis Tendonitis Ulnar neuropathy at elbow of left upper extremity Home Medications calcium carbonate 600 mg-vitamin D3 20 mcg (800 unit) tablet 1 tablet PO DAILY@0800 supplement 08/10/14 [History Last Taken Unknown] latanoprost 0.005 % eye drops 1 drp EACH EYE QHS Eye drops 08/10/14 [History Last Taken Unknown] acetaminophen 650 mg tablet,extended release (Tylenol Arthritis Pain) 650 mg PO DAILY pain 08/29/20 [History Last Taken Unknown] letrozole 2.5 mg tablet 2.5 mg PO DAILY Breast cancer 08/29/20 [History Last Taken Unknown] magnesium 250 mg tablet 250 mg PO DAILY supplement 08/29/20 [History Last Taken Unknown] vilazodone 20 mg tablet 40 mg PO DAILY Antidepressant 08/29/20 [History Last Taken 07/06/23] omeprazole 20 mg capsule,delayed release 20 mg PO DAILY GERD 08/30/20 [History Last Taken Unknown] meloxicam 15 mg tablet 7.5 mg (1/2 x 15 mg) PO BID Joint pain #30 tabs 08/19/21 [Rx Last Taken Unknown] alendronate 70 mg tablet 70 mg PO Q7D Bone health 07/06/23 [History Last Taken Unknown] mirtazapine 30 mg tablet mg Sleep 07/06/23 [History Last Taken Unknown] Allergy/AdvReac Type Severity Reaction Status Date / Time Penicillins [PCN] Allergy Severe Anaphylaxis Verified 06/23/23 07:41 Family History Aunt Cancer Sister Cancer Surgical History (Updated 07/07/23 @ 18:[address] Tracey Chacon DO) History of lumpectomy of right breast History of right mastectomy Social History (Updated 07/07/23 @ 18:[address] Tracey Chacon DO) household members: spouse housing: other details: One-story house with a basement. Laundry is upstairs number of children: 1 current occupational status: retired Smoking Status: Never smoker Electronic Cigarette Use: not used second hand exposure: No alcohol intake: current alcohol intake frequency: holidays/special occasions only substance use type: does not use Physical Exam Const alert and oriented x3 HEENT normocephalic Eyes no scleral icterus Resp normal respiratory effort Cardio regular rate and regular rhythm Risk Stratification Risk Stratification Applicable: No Charges/Coding Visit Charges Inpatient E&M: 83374 Init Hosp L2 Objective Data Vital Signs: Vital Signs Temp Pulse Resp BP Pulse Ox O2 Del Method O2 Flow Rate 97.8 F 87 16 180/100 H 99 Nasal Cannula 2 07/25/23 17:57 07/25/23 22:20 07/25/23 17:57 07/25/23 22:39 07/25/23 22:20 07/25/23 22:20 07/25/23 22:20 FiO2 94 07/11/23 19:30 Oxygen Flow Rate (L/min) 2 Oxygen Delivery Method Nasal Cannula Weight: 188 lb 12.8 oz Body Mass Index (BMI) 32.2 Intake & Output: Intake and Output for Last 24 Hours 07/23/23 07/24/23 07/25/23 23:59 23:59 23:59 Intake Total 480 / 480 925 / 925 3815 / 3815 Output Total 1800 / 1800 1450 / 1450 3120 / 3120 Balance -1320 / -1320 -525 / -525 695 / 695 Lab / Micro Data 07/25/23 20:32 07/25/23 22:32 Labs: Laboratory Results - last 24 hr 07/25/23 20:32: WBC 13.1 H, RBC 4.10 L, Hgb 12.2, Hct 39.0, MCV 95.1, MCH 29.8, MCHC 31.3 L, RDW Std Deviation 48.5 H, RDW Coeff of Kenisha 14.0, Plt Count 420, MPV 11.2, Immature Gran % (Auto) 0.400, Neut % (Auto) 49.1, Lymph % (Auto) 24.9, [place] % (Auto) 7.3, Eos % (Auto) 17.1 H, Baso % (Auto) 1.2 H, Absolute Neuts (auto) 6.4, Absolute Lymphs (auto) 3.26, Nucleated RBC % 0, Differential Comment SEE COMMENT, Platelet Estimate SLT INC, RBC Morphology N CHROM, Anisocytosis RARE, Macrocytosis RARE, Phosphorus 2.3 L 07/25/23 22:18: POC Glucose 111 H 07/25/23 22:32: Sodium 142, Potassium 4.0, Chloride 112 H, Carbon Dioxide 25.0, Anion Gap 5, BUN 11, Creatinine 0.94, Estim Creat Clear Calc 55.60, Est GFR (MDRD) Af Amer 75, Est GFR (MDRD) Non-Af 62, BUN/Creatinine Ratio 11.8, Glucose 108 H, Calcium 10.9 H, Magnesium 2.0, Troponin I High Sens 62 H Micro: Microbiology 07/24/23 09:55 Urine, Catheterized Urine Culture - Preliminary Gram negative [facility] Labs/Tests 07/25/23 20:32: WBC 13.1 H, RBC 4.10 L, Hgb 12.2, Hct 39.0, MCV 95.1, MCH 29.8, MCHC 31.3 L, Plt Count 420, MPV 11.2, Immature Gran % (Auto) 0.400, Neut % (Auto) 49.1, Lymph % (Auto) 24.9, [place] % (Auto) 7.3, Eos % (Auto) 17.1 H, Baso % (Auto) 1.2 H, Absolute Neuts (auto) 6.4, Nucleated RBC % 0, Phosphorus 2.3 L 07/25/23 22:32: Sodium 142, Potassium 4.0, Chloride 112 H, Carbon Dioxide 25.0, Anion Gap 5, BUN 11, Creatinine 0.94, Est GFR (MDRD) Af Amer 75, Est GFR (MDRD) Non-Af 62, BUN/Creatinine Ratio 11.8, Glucose 108 H, Calcium 10.9 H, Magnesium 2.0 Rhythm: EKG: ECHO: Stress Test: Cardiac Cath: PCI: CT Surgery: Holter monitor: EPS: PPM: CXR: Chest CT Scan:
--- NOTE | 2023-07-26 00:12 | CL.D_ITS ---
Patient Name: GILBERTO CAMPBELL Study Date: 07/25/2023 Performing: Rebekah Love MD Ht: 64 inches 162.56 cm : 1950 Wt: 189.1 lbs 85.64 kg Age: 72 Gender: female BSA: 1.91 PROCEDURE(S) PERFORMED DC01-(21040)LHC/COR/LV CLINICAL PROFILE AND INDICATIONS Indications: Suspected STEMI Heart Failure: None CONCLUSIONS Mild to moderate diffuse coronary artery disease. LVEF is 20 to 25% with wall motion abnormalities suggestive of Takotsubo cardiomyopathy. Mild mitral regurgitation. No significant aortic stenosis. RECOMMENDATIONS DESCRIPTION OF PROCEDURE The patient arrived to the procedure lab. The risks and benefits of the procedure as well as a full description of our services here and current unavailability of surgical backup were fully explained to the patient and/or their significant other prior to the catheterization. The Timeout was completed, verifying the correct patient and procedure. The patient's procedural site was prepped and draped in the usual fashion. Local anesthetic was given subcutaneously to right radial region with Lidocaine 2%. Using a modified Seldinger technique, arterial access was obtained via the right radial artery, a 6Fr sheath was inserted. Left Ventriculography was performed in GABONESE projection using a 5 Fr. jr4. Simultaneous pressures were then recorded. LV to AO pullback pressures were then recorded.The arterial sheath was pulled and a TR Band was applied for hemostasis 12 ml of air CORONARY ANGIOGRAPHY DOMINANCE: Right Dominant LEFT HEART ASSESSMENT Left Ventricular Ejection Fraction: by LV Gram 20-25 % Base of the LV is rosey well. Rest of the LV is severely hypokinetic to akinetic. These wall motion abnormalities are suggestive of Takotsubo cardiomyopathy. LEFT MAIN: Mild luminal irregularities LEFT ANTERIOR DESCENDING ARTERY: Mild to moderate diffuse disease CIRCUMFLEX ARTERY: Mild diffuse disease RIGHT CORONARY ARTERY: Mild diffuse disease VALVE FINDINGS: No Aortic Valve Stenosis Mitral Valve Insufficiency - Grade 1 COMPLICATIONS No Complications PROCEDURE MEDICATIONS Oxygen: 2 L/min via nasal cannula Aspirin (325mg) PO @ 07/25/2023 23:01:47 Heparin given IA 07/25/2023 23:19:57 Plavix 300 mg PO 07/25/2023 23:02:24 Verapamil 2.5mg, Ntg 100mcgs, 3000 units of Heparin given IA 07/25/2023 23:19:57 SUMMARY OF HEMODYNAMIC DATA Time AIR REST AO 14/0 (13) SA 23:07:29 Art 210/91 (125) 23:11:40 LV 162/11, 19 23:26:38 LV 162/10, 21 23:26:50 LV 159/21, 30 23:27:06 LV 146/12, 23 23:27:24 LVp 149/11, 24 23:27:30 AOp 152/78 (108) 23:27:37 AO 151/82 (113) 23:27:53 Signed By Rebekah Love MD On 07/26/2023 00:11:28 Rebekah Love MD
--- NOTE | 2023-08-05 09:05 | EKG12_ITS ---
Test Reason : Blood Pressure : / mmHG Vent. Rate : 069 BPM Atrial Rate : 069 BPM P-R Int : 176 ms QRS Dur : 108 ms QT Int : 436 ms P-R-T Axes : 028 -19 -20 degrees QTc Int : 467 ms Normal sinus rhythm Low voltage QRS Inferior infarct , age undetermined T wave abnormality, consider lateral ischemia Abnormal ECG No previous ECGs available Confirmed by JEFF DUBOSE, AZALIA ([id number]), commissioning editor FILIPE CORTEZ ([id number]) on 08/10/2023 2:09:02 PM Referred By: Tracey Chacon Confirmed By:TAD AGUILAR MD
== END 2023-07-25 22:50 | disposition short-term general hospital (02) | DRG 57 ==
PROVIDERS: Internal Medicine; Admitting Provider Internal Medicine; PCP Family Medicine; Referring Provider Internal Medicine; Visit Provider Internal Medicine
DX: I69.354 Hemiplegia and hemiparesis following cerebral infarction affecting left non-dominant side (principal); F05 Delirium due to known physiological condition; I51.81 Takotsubo syndrome; I10 Essential (primary) hypertension; I69.398 Other sequelae of cerebral infarction; G47.33 Obstructive sleep apnea (adult) (pediatric); H53.47 Heteronymous bilateral field defects; I25.10 Atherosclerotic heart disease of native coronary artery without angina pectoris; L30.9 Dermatitis, unspecified; E83.52 Hypercalcemia; K59.00 Constipation, unspecified; E78.5 Hyperlipidemia, unspecified; K21.9 Gastro-esophageal reflux disease without esophagitis; E66.9 Obesity, unspecified; N30.90 Cystitis, unspecified without hematuria; Z79.83 Long term (current) use of bisphosphonates; Z79.811 Long term (current) use of aromatase inhibitors; Z68.32 Body mass index [BMI] 32.0-32.9, adult; Z79.899 Other long term (current) drug therapy; B95.7 Other staphylococcus as the cause of diseases classified elsewhere
CPT/HCPCS: 36415; 36569; 73502; 74018; 80048; 80053; 81001; 82040; 82274; 82306; 82962; 83605; 83735; 83970; 84100; 84425; 84439; 84443; 84484; 85025; 85027; 85652; 86140; 87077; 87086; 87088; 87186; 92507; 92523; 93005; 93458; 94762; 97110; 97112; 97116; 97129; 97130; 97162; 97166; 97530; 97535; 97542; 97802; J7030; J7040; J7050; J7120; Q9967; A4216; C1769; C1887; C1894

== ENCOUNTER 2023-07-26 00:34 | Inpatient (IN) | payer MEDICARE, SELFPAY ==
[2023-07-25 23:47] VITALS: BMI 32.7
--- NOTE | 2023-07-25 23:47 | PCM.HP.STD ---
[facility] - General General Date of Admission: 07/25/23 Date of Service: 07/25/23 Chief Complaint: Chest Pain. HPI Narrative GILBERTO CAMPBELL, is a 72 F with a past medical history of essential hypertension, obesity; with a BMI of 32.7 this admission, severe depression, glaucoma, OA, osteoporosis, history of breast cancer; s/p Right mastectomy (2014) after lumpectomy (1991), GERD; with history of gastric ulcer and recent history of CVA; diagnosed on June 23, 2023 with patient falling in her bathroom striking her head around 6:00 AM and then having a severe Right-sided headache with Left-sided weakness with CTA head positive Acute Right MCA Occlusion for which she was then treated with TNK and unfortunately then developed a SAH; with residual Left hemiparesis requiring transfer to [facility] who returned here to undergo rehabilitation on July 07, 2023 who was apparently doing well until the evening of July 25, 2023 when she developed severe chest pain with a subsequent EKG suggestive of Anteroseptal and Lateral STEMI. A CODE STEMI was immediately called and she was treated with ECASA, Morphine IV and Brilinta in addition to IV Heparin bolus and drip. She could not take the ECASA or the Brilinta but was already on BASA so a dose of Plavix was given shortly after her arrival in the cardiac catheterization lab. Dr. Love performed emergent LHC with patient noted to have Takotsubo's Cardiomyopathy with no flow-limiting ischemia. I then spoke to the patient's and daughter, Shonda, in the waiting room to inform them of the findings and they reported the patient's stress levels have been terrible because she has been begging them to take her home and they could not do so because of her current condition. She will now be moved to the PCU for further monitoring and care. A message was left with the patient's rehabilitation attending to update them on the patient's changing status and transfer under the hospitalist service. Finally, I would like to thank the RN's on the rehabilitation unit, the rapid response team, the housekeeping room attendant and the chemical laboratory assistant team for their outstanding care! [facility] Medical History Depression Gastric ulcer GERD (gastroesophageal reflux disease) Glaucoma History of breast cancer HTN (hypertension) Left hand weakness Left posterior interosseous nerve syndrome Lesion of right radial nerve Major depressive disorder, recurrent episode, moderate Obesity (BMI 30.0-34.9) Osteoarthritis Osteoporosis Tendonitis Ulnar neuropathy at elbow of left upper extremity Home Medications calcium carbonate 600 mg-vitamin D3 20 mcg (800 unit) tablet 1 tablet PO DAILY@0800 supplement 08/10/14 [History Last Taken Unknown] latanoprost 0.005 % eye drops 1 drp EACH EYE QHS Eye drops 08/10/14 [History Last Taken Unknown] acetaminophen 650 mg tablet,extended release (Tylenol Arthritis Pain) 650 mg PO DAILY pain 08/29/20 [History Last Taken Unknown] letrozole 2.5 mg tablet 2.5 mg PO DAILY Breast cancer 08/29/20 [History Last Taken Unknown] magnesium 250 mg tablet 250 mg PO DAILY supplement 08/29/20 [History Last Taken Unknown] vilazodone 20 mg tablet 40 mg PO DAILY Antidepressant 08/29/20 [History Last Taken 07/06/23] omeprazole 20 mg capsule,delayed release 20 mg PO DAILY GERD 08/30/20 [History Last Taken Unknown] meloxicam 15 mg tablet 7.5 mg (1/2 x 15 mg) PO BID Joint pain #30 tabs 08/19/21 [Rx Last Taken Unknown] alendronate 70 mg tablet 70 mg PO Q7D Bone health 07/06/23 [History Last Taken Unknown] mirtazapine 30 mg tablet mg Sleep 07/06/23 [History Last Taken Unknown] Allergy/AdvReac Type Severity Reaction Status Date / Time Penicillins [PCN] Allergy Severe Anaphylaxis Verified 06/23/23 07:41 Family History Aunt Cancer Sister Cancer Surgical History History of lumpectomy of right breast History of right mastectomy Social History household members: spouse housing: other details: One-story house with a basement. Laundry is upstairs number of children: 1 current occupational status: retired Smoking Status: Never smoker Electronic Cigarette Use: not used second hand exposure: No alcohol intake: current alcohol intake frequency: holidays/special occasions only substance use type: does not use ROS ROS Narrative Review of systems: General: Patient denies fever or chills HENT: Denies headache, denies stuffy nose, denies sore throat EYES: Denies changes in vision or discharge from eyes Resp: Denies cough, denies shortness of breath Cardiac: Patient admits to crushing chest pain and was in severe distress GI: Denies abdominal pain, denies changes in bowel, had some nausea : Denies changes in urination Extremity: Denies swelling Musculoskeletal: Negative for arthralgias or myalgias Neuro: Patient denies any new focal neurologic weakness but still with residual left hemiparesis from her previous CVA Heme: Denies any bleeding or bruising Skin: Denies rashes Psychiatric: Patient appeared to be in exquisite agony and emotionally distressed with a recent adjustment in her antidepressant medications noted Endocrine: No polyuria, polydipsia or polyphagia The rest of the 14 point ROS was negative except for positives in HPI. Physical Exam Const alert and oriented x3 Constitutional Narrative: Patient was in moderate to severe distress and appears chronically ill. General Appearance: cooperative HEENT normocephalic, head/scalp atraumatic, hearing grossly normal bilaterally and moist oral mucous membranes Eyes PERRL and EOMs intact bilaterally Neck no lymphadenopathy and supple Resp normal respiratory effort, no retractions, no use of accessory muscles and clear to auscultation bilaterally Cardio regular rate and regular rhythm GI normal to inspection, nondistended, normoactive bowel sounds, soft to palpation, non-tender and non-distended GI Narrative: Obese. Extremity normal to inspection and full ROM Skin Skin Narrative: Patient has no evidence of rash at this time. Neuro oriented x3, CN's II-XII intact bilaterally and moves all extremities Neuro Narrative: Patient still has residual left-sided hemiparesis. Sensorium / Orientation: awake, alert, oriented to person, oriented to place and oriented to time Speech: speech normal Psych Mood & Affect: depressed and anxious Results Medical Records Data Attestation: I reviewed the patient's medical records Lab / Micro Data Attestation: I reviewed the patient's lab results. Assessment & Plan Assessment/Plan (1) Takotsubo cardiomyopathy: (2) Chest pain: QUALIFIERS: Chest pain type: unspecified Qualified Code(s): R07.9 - Chest pain, unspecified (3) Uncontrolled depression: (4) History of right MCA stroke: PLAN: Plan 1. Takotsubo's Cardiomyopathy with no flow-limiting ischemia on emergent LHC - Admit to PCU. Continue current medical treatment along with supportive care and monitor for improvement. Dr. Love's cardiology consultation is greatly appreciated. 2. Severe Uncontrolled Depression with patient desperately wanting to go home and be with her family precipitating #1 - Continue current regimen plus we will need to contact patient's psychiatrist to upwardly titrate her antidepressant regimen. Check TSH, B12 and Folate levels to evaluate for potential underlying metabolic disorders or nutritional deficiencies that may be contributing to her condition. 3. Recent history of CVA; diagnosed on June 23, 2023 with patient falling in her bathroom striking her head around 6:00 AM and then having a severe Right-sided headache with Left-sided weakness with CTA head positive Acute Right MCA Occlusion for which she was then treated with TNK and unfortunately then developed a SAH; with residual Left hemiparesis requiring transfer to [facility] who returned here to undergo rehabilitation on July 07, 2023 who was apparently doing well until the evening of July 25, 2023 when she developed severe chest pain with a subsequent EKG suggestive of Anteroseptal and Lateral STEMI complicating #1 & #2 - Noted. Hopefully she will be able to return to rehabilitation soon. 4. Essential hypertension - Continue current regimen plus give prn IV Hydralazine for systolic blood pressure > 160 mm Hg. 5. Obesity; with a BMI of 32.7 this admission - Weight loss will be recommended. 6. Glaucoma - Resume eye drops s previous. 7. OA - Stable. Give Tylenol prn. 8. Osteoporosis - Continue Alendronate as an outpatient. 9. History of breast cancer; s/p Right mastectomy (2014) after lumpectomy (1991) - Noted. 10. GERD; with history of gastric ulcer - Stable. 11. DVT prophylaxis - Patient was on IV Heparin for STEMI alert and we will start SCD's. Total time: Approximately 55 minutes. Charges/Coding Visit Charges Inpatient E&M: 98339 Init Hosp L2
[2023-07-25 23:55] VITALS: BP 183/99; PULSE 81; RESP 18; TEMP 36.3; O2SAT 100
--- OUTSIDE RECORDS SUMMARY | 2023-07-25 23:58 | XMS RPT_ITS | CCD ---
Author Name Unknown Address [address] [place] [address] Organization [facility] Care Team Providers Care Vacuum Extractor Operator Name Role Phone Viridiana Jackson LPN Unavailable [phone] Viridiana Jackson LPN Unavailable [phone] Wandy Oliveira MD Unavailable Anderson Nicholas [...] Facility (2 sources) PENCILLIN drug allergy 5 [facility] Work Phone: (1 source) Penicillin G Drug Allergy 1 [facility] Work Phone: (2 sources) Penicillins; Translations: [PENICILLINS] Propensity to adverse reactions 6 [facility] Work Phone: (3 sources) Penicillins Propensity to adverse reactions 6 [facility] Work Phone: (3 sources) buPROPion; Translations: [BUPROPION] Drug Allergy 3 Swelling [facility] Medications Completed/Discontinued Medications Medication Drug Class(es) [...] 161 cm Miryam Ramirez APRN.CNP Work Phone: [facility] 05-15-2023 09:27-0500 Body temperature 97.7 [degF] Miryam Ramirez APRN.CNP Work Phone: [facility] 05-15-2023 09:27-0500 Body weight 90.27 kg Miryam Ramirez APRN.CNP Work Phone: [facility] 05-15-2023 09:27-0500 Diastolic blood pressure 80 mm[Hg] Miryam Ramirez APRN.CNP Work Phone: [facility] 05-15-2023 09:27-0500 Heart rate 91 /min Miryam Ramirez END FINDER TWISTING DEPARTMENT.WEAPONS ELECTRICAL ENGINEERING OFFICER Work Phone: [facility] 05-15-2023 09:27-0500 SaO2% (BldA) [Mass fraction] 92 % Miryam Ramirez END FINDER TWISTING DEPARTMENT.WEAPONS ELECTRICAL ENGINEERING OFFICER Work Phone: [facility] 05-15-2023 09:27-0500 Systolic blood pressure 141 mm[Hg] [place] Ramirez END FINDER TWISTING DEPARTMENT.WEAPONS ELECTRICAL ENGINEERING OFFICER Work Phone: [facility] 12-22-2022 09:27-0400 Body height 160 cm Iris Ulloa MD Work Phone: [facility] 12-22-2022 09:27-0400 Body weight 89.54 kg Iris Ulloa MD Work Phone: [facility] 12-22-2022 09:27-0400 Diastolic blood pressure 70 mm[Hg] Iris Ulloa MD Work Phone: [facility] 12-22-2022 09:27-0400 Systolic blood pressure 110 mm[Hg] Iris Ulloa MD Work Phone: [facility] 05-09-2022 09:10-0500 Body height 161.5 cm [place] Ramirez END FINDER TWISTING DEPARTMENT.WEAPONS ELECTRICAL ENGINEERING OFFICER Work Phone: [facility] 05-09-2022 09:10-0500 Body temperature 97.81 [degF] Miryam Ramirez END FINDER TWISTING DEPARTMENT.WEAPONS ELECTRICAL ENGINEERING OFFICER Work Phone: [facility] 05-09-2022 09:10-0500 Body weight 91.85 kg [place] Ramirez END FINDER TWISTING DEPARTMENT.WEAPONS ELECTRICAL ENGINEERING OFFICER Work Phone: [facility] 05-09-2022 09:10-0500 Diastolic blood pressure 81 mm[Hg] Miryam Ramirez END FINDER TWISTING DEPARTMENT.WEAPONS ELECTRICAL ENGINEERING OFFICER Work Phone: [facility] 05-09-2022 09:10-0500 Heart rate 89 /min [place] Ramirez END FINDER TWISTING DEPARTMENT.WEAPONS ELECTRICAL ENGINEERING OFFICER Work Phone: [facility] 05-09-2022 09:10-0500 SaO2% (BldA) [Mass fraction] 96 % Miryam Ramirez END FINDER TWISTING DEPARTMENT.WEAPONS ELECTRICAL ENGINEERING OFFICER Work Phone: [facility] 05-09-2022 09:10-0500 Systolic blood pressure 156 mm[Hg] Miryam Ramirez END FINDER TWISTING DEPARTMENT.WEAPONS ELECTRICAL ENGINEERING OFFICER Work Phone: [facility] 11-08-2021 09:24-0400 Body temperature 98.1 [degF] Miryam Hansenenter END FINDER TWISTING DEPARTMENT.WEAPONS ELECTRICAL ENGINEERING OFFICER Work Phone: [facility] 11-08-2021 09:24-0400 Body weight 94.12 kg Miryam Ramirez END FINDER TWISTING DEPARTMENT.WEAPONS ELECTRICAL ENGINEERING OFFICER Work Phone: [facility] 11-08-2021 09:24-0400 Diastolic blood pressure 92 mm[Hg] Miryam Hansenenter END FINDER TWISTING DEPARTMENT.WEAPONS ELECTRICAL ENGINEERING OFFICER Work Phone: [facility] 11-08-2021 09:24-0400 Heart rate 90 /min Miryam Ramirez END FINDER TWISTING DEPARTMENT.WEAPONS ELECTRICAL ENGINEERING OFFICER Work Phone: [facility] 11-08-2021 09:24-0400 SaO2% (BldA) [Mass fraction] 95 % Miryam Ramirez END FINDER TWISTING DEPARTMENT.WEAPONS ELECTRICAL ENGINEERING OFFICER Work Phone: [facility] 11-08-2021 09:24-0400 Systolic blood pressure 161 mm[Hg] Miryam Hansenenter END FINDER TWISTING DEPARTMENT.WEAPONS ELECTRICAL ENGINEERING OFFICER Work Phone: [facility] 10-12-2016 09:42-0400 BMI (Body Mass Index) 34.69 kg/m2 Viridiana Jackson LPN [facility] Work Phone: 10-12-2016 09:42-0400 Body Temperature 98.1 [degF] Viridiana Jackson LPN [facility] Work Phone: 10-12-2016 09:42-0400 BP Diastolic 82 mm[Hg] Viridiana Jackson LPN [facility] Work Phone: 10-12-2016 09:42-0400 BP Systolic 130 mm[Hg] Viridiana Jackson LPN [facility] Work Phone: 10-12-2016 09:42-0400 Height 161.29 cm Viridiana Jackson LPN [facility] Work Phone: 10-12-2016 09:42-0400 Pulse (Heart Rate) 92 /min Viridiana Jackson LPN [facility] Work Phone: 10-12-2016 09:42-0400 Pulse Oximetry 98 % Viridiana Jackson LPN [facility] Work Phone: 10-12-2016 09:42-0400 Respiratory Rate 14 /min Viridiana Jackson LPN [facility] Work Phone: 10-12-2016 09:42-0400 Weight 90.27 kg Viridiana Jackson LPN [facility] Work Phone: 03-17-2016 14:19-0400 Body Temperature 98.2 [degF] Viridiana Jackson LPN [facility] Work Phone: 03-17-2016 14:19-0400 BSA (Body Surface Area) 1.99 m2 Viridiana Jackson LPN [facility] Work Phone: 03-17-2016 14:19-0400 Height 161.29 cm Viridiana Jackson LPN [facility] Work Phone: 03-17-2016 14:19-0400 Weight 95.36 kg Viridiana Jackson LPN [facility] Work Phone: NEGATED: Highlighted [id number] 11:56-0400 Body height 162.56 cm Viki Ziats AT [facility] Work Phone: NEGATED: Highlighted [id number] 11:56-0400 Body height 163 cm Viki Ziats AT [facility] Work Phone: NEGATED: Highlighted [id number] 11:56-0400 Body mass index (BMI) [Ratio] 34.45 kg/m2 Viki Ziats AT [facility] Work Phone: NEGATED: Highlighted [id number] 11:56-0400 Body weight 90.72 kg Viki Ziats AT [facility] Work Phone: NEGATED: Highlighted [id number] 11:56-0400 Body weight 91 kg Viki Lara AT [facility] Work Phone: Encounters Encounter Date Encounter Type Care Provider Facility Start: 06-23-2023 Evaluation and management of inpatient ANDERSON Yvrose SPENCER Facility:[facility] Start: 06-23-2023 Evaluation and management of inpatient ANDERSON A SPENCER Facility:[facility] Start: 05-15-2023 End: 05-15-2023 ambulatory [facility] Facility:[facility] Start: 05-15-2023 End: 05-15-2023 ambulatory [facility] END FINDER TWISTING DEPARTMENT.WEAPONS ELECTRICAL ENGINEERING OFFICER Work Phone: Hematology/Oncology Procedures Date Procedure Procedure Detail Performing Clinician Start: 07-02-2023 Antibody screen ANDERSON SM ITH Plan of Treatment Date Care Activity Detail Author Start: 04-14-2033 Urine microalbumin profile DTaP,Tdap,Td Vaccine (2 - Td or Tdap) [facility] Start: 02-06-2023 Influenza vaccination INFLUENZA (#1) [facility] Start: 12-22-2022 End: 02-21-2023 Bacteria identified in Urine by Culture URINE CULTURE Microbiology Routine Mixed incontinence Expected: 12/22/2022, Expires: 02/21/2023 [facility] Work Phone: Immunizations Immunization Date Immunization Notes Care Provider Yovani montero 04-12-2012 influenza virus vacc ine, unspecified formulation Miryam Ramirez END FINDER TWISTING DEPARTMENT.WEAPONS ELECTRICAL ENGINEERING OFFICER Work Phone: [facility] Payers Date Payer Category Payer Medicare AET[employer] MEDICARE A ETNA MEDICARE PPO [id number] 2021-Present [phone] [address] [place] [address] PPO [id number] 2021 Medicare AETNA MEDICARE A ETNA MEDICARE PPO [id number] 2021-Present [phone] [address] [place] [address] PPO [id number] 2021 Medicare [id number] 1950 Unknown [id number] 1950 Unknown [id number] Social History Date Type Detail Facility Start: 09-06-2021 End: 09-06-2021 Assertion Unknown if ever smoked [facility] Work Phone: Start: 04-10-2011 Tobacco smoking stat [facility] Never smoked tobacco [facility] Start: 11-08-2021 End: 05-15-2023 Alcohol intake Current drinker of alcohol (finding) [facility] Start: 04-06-2008 History SDOH Alcohol Comment Seldom [facility] Start: 1950 Sex Assigned At Not on file C [facility] Start: 10-14-2021 End: 10-24-2021 Exposure to SARS-CoV-2 (event) Not sure [facility] Start: 04-10-2011 Tobacco use and exposure Smokeless tobacco non-user [facility] Start: 11-14-2022 End: 12-22-2022 History of Social function [facility] Start: 11-14-2022 End: 12-22-2022 Tobacco use panel [facility] Adult Depression Screening Assessment 4 [facility] Clinical Notes 11-08-2021 to 05-15-2023 Miryam Ramirez APRN.WEAPONS ELECTRICAL ENGINEERING OFFICER - 05/15/2023 9:40 AM Iris Ashley MD - 12/22/2022 9:12 AM EDTMiryam Ramirez APRN.WEAPONS ELECTRICAL ENGINEERING OFFICER - 05/09/2022 9:13 AM Virgilio Ramirez APRN.CNP - 11/08/2021 9:25 AM EDT Note Date & Type Note Facility 05-15-2023 Note HNO ID: [id number] Author: Miryam Ramirez APRN.NAZARIO Service: ? Author Type: Nurse Practitioner Type: Progress Notes Filed: 05/15/2023 12:17 PM Note Text: Chief Complaint Patient presents with: Established Patient HPI: Natalia Leigh is a 72 year old female who presents here today for follow up breast cancer. H/o DX:Right Breast cancer-ER/MI positive pT1b, N0, intermediate risk score on [...] - ICD9: 174.4, V86.0, ICD10: C50.411, Z17.0 ER/MI positive pT1b, N0, intermediate risk score on [...] as necessary for today's visit. Miryam Ramirez APRN.[facility] 05-15-2023 History of Present illness Narrative Chief Complaint Patient presents with: Established Patient HPI: Natalia Leigh is a 72 year old female who presents here today for follow up breast cancer. H/o DX:Right Breast cancer-ER/MI positive pT1b, N0, intermediate risk score on [...] - ICD9: 174.4, V86.0, ICD10: C50.411, Z17.0 ER/MI positive pT1b, N0, intermediate risk score on [...] as necessary for today's visit. Miryam Ramirez APRN.WEAPONS ELECTRICAL ENGINEERING OFFICER documented in this encounter [facility] 12-22-2022 Note HNO ID: [id number] Author: Iris Ulloa MD Service: ? Author Type: Physician Type: Progress Notes Filed: 12/22/2022 12:33 PM Note Text: Sodder offered: Patient declines. Natalia is a 72 [...] Multiple0 Live Births0 Comment: One daughter is Dewaterer Operator History LMP: Postmenopausal Age at Menarche: Age at First : Age at Menopause: Dewaterer Operator History Comments: Sexual Activity: Yes; Male Contraception: [...] Procedure Laterality Date BMD APPENDICULAR (ENDOCRIN)_*FL BONE [id number]/98 BX BREAST W/DEVICE 1ST LESION ULTRASOUND GUID [...] RIGHT BREAST LUMPECTOMY PAST SURGICAL HISTORY OF [place] Teeth x 4 PAST SURGICAL HISTORY OF 2020 nerve surgery PAST SURGICAL HISTORY OF 2019 melanoma removed from left leg TONSILLECTOMY AND ADENOIDECTOMY FAMILY HISTORY Problem Relation Age of Onset Heart Mother PASSED FROM [place] Hypertension Mother Cancer Father PASSED FROM [facility] Alcohol/Drug Father Breast Cancer Sister PASSED [...] external genitalia normal, normal Bartholin's glands, urethra, Oak's glands, no vulvar lesions, no cervical lesions, [...] or sooner as needed Iris Ulloa DO [facility] 12-22-2022 History of Present illness Narrative Sodder offered: Patient declines. Natalia is a 72 [...] Multiple0 Live Births0 Comment: One daughter is Dewaterer Operator History LMP: Postmenopausal Age at Menarche: Age at First : Age at Menopause: Dewaterer Operator History Comments: Sexual Activity: Yes; Male Contraception: [...] Procedure Laterality Date BMD APPENDICULAR (ENDOCRIN)_*FL BONE [id number]/98 BX BREAST W/DEVICE 1ST LESION ULTRASOUND GUID [...] RIGHT BREAST LUMPECTOMY PAST SURGICAL HISTORY OF [place] Teeth x 4 PAST SURGICAL HISTORY OF 2020 nerve surgery PAST SURGICAL HISTORY OF 2019 melanoma removed from left leg TONSILLECTOMY & ADENOIDECTOMY <AGE 10 FAMILY HISTORY Problem Relation Age of Onset Heart Mother P[place]ED [place] Hypertension Mother Cancer Father PASSED FROM [facility] Alcohol/Drug Father Breast Cancer Sister PASSED [...] external genitalia normal, normal Bartholin's glands, urethra, Oak's glands, no vulvar lesions, no cervical lesions, [...] needed Iris Ulloa, documented in this encounter [facility] 11-14-2022 Note HNO ID: [id number] Author: Miryam Ramirez APRN.WEAPONS ELECTRICAL ENGINEERING OFFICER Service: ? Author Type: Nurse Practitioner Type: Progress Notes Filed: 11/14/2022 3:29 PM Note Text: Chief Complaint Patient presents with: Established Patient HPI: Natalia Leigh is a 72 year old female who presents here today for follow up breast cancer. H/o DX:Right Breast cancer-ER/MI positive pT1b, N0, intermediate risk score on [...] - ICD9: 174.4, V86.0, ICD10: C50.411, Z17.0 ER/MI positive pT1b, N0, intermediate risk score on Oncotype DX. S/p R mastectomy. Received TC with no delays. - No concerning findings on exam. - Tolerating femara well. - Continue femara. - L mammogram due in August 2022. - Needs COMPANY MANAGER appt.-est. care-Urinary incont.-last pelvic exam years ago by Hina Sky. - Follow up in 6 months. - Pt. aware to call office with any questions/concerns. The patient indicates understanding of these issues and agrees with the plan. All documentation from previous visit of 11/08/21-myself was copied and pasted, documentation has been reviewed and edited as necessary for today's visit. Miryam Ramirez APRN.[facility] 05-09-2022 History of Present illness Narrative Chief Complaint Patient presents with: Established Patient HPI: Natalia Leigh is a 71 year old female who presents here today for follow up breast cancer. H/o DX:Right Breast cancer-ER/MI positive pT1b, N0, intermediate risk score on [...] - ICD9: 174.4, V86.0, ICD10: C50.411, Z17.0 ER/MI positive pT1b, N0, intermediate risk score on [...] Miryam Ramirez APRN.NAZARIO documented in this encounter [facility] 11-08-2021 History of Present illness Narrative Chief Complaint Patient presents with: Established Patient HPI: Natalia Leigh is a 71 year old female who presents here today for follow up breast cancer. H/o DX:Right Breast cancer-ER/MI positive pT1b, N0, intermediate risk score on [...] was dx with melanoma-L calf-was followed in [place]-Dr. Deng-DERM. She is followed now by Dr. [...] - ICD9: 174.4, V86.0, ICD10: C50.411, Z17.0 ER/MI positive pT1b, N0, intermediate risk score on [...] Miryam Ramirez APRN.NAZARIO documented in this encounter [facility] Evaluation note There may be informa tion available, but it has not been provided by the sender. [facility] Work Phone: documented in this encounter [facility]* Diagnosis Malignant neoplasm of upper-outer quadrant of right breast in female, estrogen receptor positive (HCC)- Primary Encounter for screening mammogram for high-risk patient documented [facility] this encounter [facility] Diagnosis Encounter for gynecological examination (general) (routine) without abnormal findings- Primary Encounter for screening mammogram for breast cancer Mixed incontinence Mixed incontinence urge and stress (male)(female) documented in this encounter [facility]* Diagnosis Malignant neoplasm of upper-outer quadrant of right breast in female, estrogen receptor positive (HCC)- Primary documented in this encounter [facility] HospitalInstructionsNo information available.[facility] Work Phone: Reason for referral [...] Miryam Arzate APRN.CNP [address] [place] [address] [facility] [address] [place] [address] Referral ID Status Reason Start Date Expiration Date Visits Requested Visits Authorized [id number] Authorized Auto-Generat ed Referral 05/09/2022 06/08/2023 1 1 [facility] Chief Complaint Chief Complaint Description Start Date [...] Ulloa MD [address] [place] [address] [facility] [place] [address] [place] [address] Referral ID Status Reason Start Date Expiration Date Visits Requested Visits Authorized [id number] Pending Review Auto-Generat ed Referral 12/22/2022 12/22/2023 1 1 Specialty Diagnoses / Procedures Referred By Contac t Referred To Contact Diagnoses Mixed incontinence Procedures CONSULT TO URO GYNECOLOGY Iris Ulloa MD [address] [facility] [place] [address] Reshma Richard MD [address] [place] [address] Referral ID Status Reason Start Date Expiration Date Visits Requested Visits Authorized [id number] Ref Not Required PCP Requested Referral 12/22/2022 12/22/2023 1 1 Specialty Diagnoses / Procedures Referred By Shruthi calderón Referred To Contact [facility] Diagnoses Encounter for screening mammogram for breast cancer Procedures CARIDAD SCREENING SCREENING MAMMOGRAPHY BI 2-VIEW BREAST INC CAD Iris Ulloa MD [address] [place] [address] [facility] [address] [place] [address] Referral ID Status Reason Start Date Expiration Date Visits Requested Visits Authorized [id number] Pending Review Auto-Generat ed Referral 12/22/2022 01/21/2024 [...] or prosecute any alcohol or drug abuse patient.[facility] Hospital[facility] the event this information is protected by the Federal Confidentiality of Alcohol and Drug Abuse Patient Records regulations: The Federal rules restrict any use of the information to criminally investigate or prosecute any alcohol or drug abuse patient.[facility] Hospital[facility] the event this information is protected by the Federal Confidentiality of Alcohol and Drug Abuse Patient Records regulations: The Federal rules restrict any use of the information to criminally investigate or prosecute any alcohol or drug abuse patient.[facility] Hospital[facility] the event this information is protected by the Federal Confidentiality of Alcohol and Drug Abuse Patient Records regulations: The Federal rules restrict any use of the information to criminally investigate or prosecute any alcohol or drug abuse patient.[facility] Care Teams (unrecognized sec tion and content) Vacuum Extractor Operator Relationship Specialty Start Date End Date Anderson Nicholas MD PCP - General 04/06/08 Vacuum Extractor Operator Relationship Specialty Start Date End Date Anderson Nicholas MD PCP - General 04/06/08 Vacuum Extractor Operator Relationship Specialty Start Date End Date Anderson Nicholas MD PCP - General 04/06/08 INFORMATION SOURCE (unrecogn ized section and content) DATE CREATED AUTHOR AUTHOR'S ORGANAMY ATION 07/04/2023 [facility] FOR RECORDS PERTAINING TO PATIENTS WHO ARE [...] BE BASED ON THE PRIMARY CLINICAL RECORDS. [facility] [employer] [facility]. provides no warranty or guarantee of the accuracy or completeness of information in this document.
[2023-07-26] VITALS (15 sets, daily range): BP systolic 128–187; BP diastolic 68–107; PULSE 65–90; RESP 16–18; TEMP 35.7–36.6; O2SAT 96–100; BMI 32.7
--- OUTSIDE RECORDS SUMMARY | 2023-07-26 00:51 | XMS RPT_ITS | CCD ---
Author Name Unknown Address [address] [place] [address] Organization [facility] Care Team Providers Care Structural Steel Detailer Name Role Phone Viridiana Jackson LPN Unavailable Viridiana Jackson LPN Unavailable Wandy Oliveira MD Unavailable Anderson Nicholas MD Primary Care Provider Anderson Nicholas MD Primary Care Provider Anderson Nicholas MD Primary Care Provider [phone] MIRYAM RAMIREZ Referring Unavailable MIRYAM RAMIREZ Attending [...] Facility (2 sources) PENCILLIN drug allergy 5 [facility] Work Phone: (1 source) Penicillin G Drug Allergy 1 [facility] Work Phone: (2 sources) Penicillins; Translations: [PENICILLINS] Propensity to adverse reactions 6 [facility] Work Phone: (3 sources) Penicillins Propensity to adverse reactions 6 [facility] Work Phone: (3 sources) buPROPion; Translations: [BUPROPION] Drug Allergy 3 Swelling [facility] Medications Completed/Discontinued Medications Medication Drug Class(es) [...] 161 cm Miryam Ramirez APRN.CNP Work Phone: [facility] 05-15-2023 09:27-0500 Body temperature 97.7 [degF] Miryam Ramirez APRN.CNP Work Phone: [facility] 05-15-2023 09:27-0500 Body weight 90.27 kg Miryam Ramirez APRN.CNP Work Phone: [facility] 05-15-2023 09:27-0500 Diastolic blood pressure 80 mm[Hg] Miryam Ramirez APRN.CNP Work Phone: [facility] 05-15-2023 09:27-0500 Heart rate 91 /min Miryam Ramirez DOUGHNUT GLAZIER.MINIATURE SET DESIGNER Work Phone: [facility] 05-15-2023 09:27-0500 SaO2% (BldA) [Mass fraction] 92 % Miryam Ramirez DOUGHNUT GLAZIER.MINIATURE SET DESIGNER Work Phone: [facility] 05-15-2023 09:27-0500 Systolic blood pressure 141 mm[Hg] Grant Ramirez DOUGHNUT GLAZIER.MINIATURE SET DESIGNER Work Phone: [facility] 12-22-2022 09:27-0400 Body height 160 cm Iris Ulloa MD Work Phone: [facility] 12-22-2022 09:27-0400 Body weight 89.54 kg Iris Ulloa MD Work Phone: [facility] 12-22-2022 09:27-0400 Diastolic blood pressure 70 mm[Hg] Iris Ulloa MD Work Phone: [facility] 12-22-2022 09:27-0400 Systolic blood pressure 110 mm[Hg] Iris Ulloa MD Work Phone: [facility] 05-09-2022 09:10-0500 Body height 161.5 cm Grant Ramirez DOUGHNUT GLAZIER.MINIATURE SET DESIGNER Work Phone: [facility] 05-09-2022 09:10-0500 Body temperature 97.81 [degF] Miryam Ramirez DOUGHNUT GLAZIER.MINIATURE SET DESIGNER Work Phone: [facility] 05-09-2022 09:10-0500 Body weight 91.85 kg Grant Ramirez DOUGHNUT GLAZIER.MINIATURE SET DESIGNER Work Phone: [facility] 05-09-2022 09:10-0500 Diastolic blood pressure 81 mm[Hg] Miryam Ramirez DOUGHNUT GLAZIER.MINIATURE SET DESIGNER Work Phone: [facility] 05-09-2022 09:10-0500 Heart rate 89 /min Grant Ramirez DOUGHNUT GLAZIER.MINIATURE SET DESIGNER Work Phone: [facility] 05-09-2022 09:10-0500 SaO2% (BldA) [Mass fraction] 96 % Miryam Ramirez DOUGHNUT GLAZIER.MINIATURE SET DESIGNER Work Phone: [facility] 05-09-2022 09:10-0500 Systolic blood pressure 156 mm[Hg] Miryam Ramirez DOUGHNUT GLAZIER.MINIATURE SET DESIGNER Work Phone: [facility] 11-08-2021 09:24-0400 Body temperature 98.1 [degF] Miryam Hansenenter DOUGHNUT GLAZIER.MINIATURE SET DESIGNER Work Phone: [facility] 11-08-2021 09:24-0400 Body weight 94.12 kg Miryam Ramirez DOUGHNUT GLAZIER.MINIATURE SET DESIGNER Work Phone: [facility] 11-08-2021 09:24-0400 Diastolic blood pressure 92 mm[Hg] Miryam Hansenenter DOUGHNUT GLAZIER.MINIATURE SET DESIGNER Work Phone: [facility] 11-08-2021 09:24-0400 Heart rate 90 /min Miryam Ramirez DOUGHNUT GLAZIER.MINIATURE SET DESIGNER Work Phone: [facility] 11-08-2021 09:24-0400 SaO2% (BldA) [Mass fraction] 95 % Miryam Ramirez DOUGHNUT GLAZIER.MINIATURE SET DESIGNER Work Phone: [facility] 11-08-2021 09:24-0400 Systolic blood pressure 161 mm[Hg] Miryam Hansenenter DOUGHNUT GLAZIER.MINIATURE SET DESIGNER Work Phone: [facility] 10-12-2016 09:42-0400 BMI (Body Mass Index) 34.69 kg/m2 Viridiana Jackson LPN [facility] Work Phone: 10-12-2016 09:42-0400 Body Temperature 98.1 [degF] Viridiana Jackson LPN [facility] Work Phone: 10-12-2016 09:42-0400 BP Diastolic 82 mm[Hg] Viridiana Jackson LPN [facility] Work Phone: 10-12-2016 09:42-0400 BP Systolic 130 mm[Hg] Viridiana Jackson LPN [facility] Work Phone: 10-12-2016 09:42-0400 Height 161.29 cm Viridiana Jackson LPN [facility] Work Phone: 10-12-2016 09:42-0400 Pulse (Heart Rate) 92 /min Viridiana Jackson LPN [facility] Work Phone: 10-12-2016 09:42-0400 Pulse Oximetry 98 % Viridiana Jackson LPN [facility] Work Phone: 10-12-2016 09:42-0400 Respiratory Rate 14 /min Viridiana Jackson LPN [facility] Work Phone: 10-12-2016 09:42-0400 Weight 90.27 kg Viridiana Jackson LPN [facility] Work Phone: 03-17-2016 14:19-0400 Body Temperature 98.2 [degF] Viridiana Jackson LPN [facility] Work Phone: 03-17-2016 14:19-0400 BSA (Body Surface Area) 1.99 m2 Viridiana Jackson LPN [facility] Work Phone: 03-17-2016 14:19-0400 Height 161.29 cm Viridiana Jackson LPN [facility] Work Phone: 03-17-2016 14:19-0400 Weight 95.36 kg Viridiana Jackson LPN [facility] Work Phone: NEGATED: Highlighted [id number] 11:56-0400 Body height 162.56 cm Viki Ziats AT [facility] Work Phone: NEGATED: Highlighted [id number] 11:56-0400 Body height 163 cm Viki Ziats AT [facility] Work Phone: NEGATED: Highlighted [id number] 11:56-0400 Body mass index (BMI) [Ratio] 34.45 kg/m2 Viki Ziats AT [facility] Work Phone: NEGATED: Highlighted [id number] 11:56-0400 Body weight 90.72 kg Viki Ziats AT [facility] Work Phone: NEGATED: Highlighted [id number] 11:56-0400 Body weight 91 kg Viki Lara AT [facility] Work Phone: Encounters Encounter Date Encounter Type Care Provider Facility Start: 06-23-2023 Evaluation and management of inpatient ANDERSON Yvrose SHERBORN Facility:[facility] Start: 06-23-2023 Evaluation and management of inpatient ANDERSON A SHERBORN Facility:[facility] Start: 05-15-2023 End: 05-15-2023 ambulatory [facility] Facility:[facility] Start: 05-15-2023 End: 05-15-2023 ambulatory [facility] DOUGHNUT GLAZIER.MINIATURE SET DESIGNER Work Phone: Hematology/Oncology Procedures Date Procedure Procedure Detail Performing Clinician Start: 07-02-2023 Antibody screen ANDERSON SM ITH Plan of Treatment Date Care Activity Detail Author Start: 04-14-2033 Urine microalbumin profile DTaP,Tdap,Td Vaccine (2 - Td or Tdap) [facility] Start: 02-06-2023 Influenza vaccination INFLUENZA (#1) [facility] Start: 12-22-2022 End: 02-21-2023 Bacteria identified in Urine by Culture URINE CULTURE Microbiology Routine Mixed incontinence Expected: 12/22/2022, Expires: 02/21/2023 [facility] Work Phone: Immunizations Immunization Date Immunization Notes Care Provider Yovani montero 04-12-2012 influenza virus vacc ine, unspecified formulation Miryam Ramirez DOUGHNUT GLAZIER.MINIATURE SET DESIGNER Work Phone: [facility] Payers Date Payer Category Payer Medicare AETNA MEDICARE A ETNA MEDICARE PPO [id number] 2021-Present [phone] [address] [place] [address] PPO [id number] 2021 Medicare AETNA MEDICARE A ETNA MEDICARE PPO [id number] 2021-Present [phone] [address] [place] [address] PPO [id number] 2021 Medicare [id number] 1950 Unknown [id number] 1950 Unknown [id number] Social History Date Type Detail Facility Start: 09-06-2021 End: 09-06-2021 Assertion Unknown if ever smoked [facility] Work Phone: Start: 04-10-2011 Tobacco smoking stat [facility] Never smoked tobacco [facility] Start: 11-08-2021 End: 05-15-2023 Alcohol intake Current drinker of alcohol (finding) [facility] Start: 04-06-2008 History SDOH Alcohol Comment Seldom [facility] Start: 1950 Sex Assigned At Not on file [facility] Start: 10-14-2021 End: 10-24-2021 Exposure to SARS-CoV-2 (event) Not sure [facility] Start: 04-10-2011 Tobacco use and exposure Smokeless tobacco non-user [facility] Start: 11-14-2022 End: 12-22-2022 History of Social function [facility] Start: 11-14-2022 End: 12-22-2022 Tobacco use panel [facility] Adult Depression Screening Assessment 4 [facility] Clinical Notes 11-08-2021 to 05-15-2023 Miryam Ramirez APRN.MINIATURE SET DESIGNER - 05/15/2023 9:40 AM Iris Ashley MD - 12/22/2022 9:12 AM EDTMiryam Ramirez APRN.MINIATURE SET DESIGNER - 05/09/2022 9:13 AM Virgilio Ramirez APRN.CNP - 11/08/2021 9:25 AM EDT Note Date & Type Note Facility 05-15-2023 Note HNO ID: [id number] Author: Miryam Ramirez APRN.NAZARIO Service: ? Author Type: Nurse Practitioner Type: Progress Notes Filed: 05/15/2023 12:17 PM Note Text: Chief Complaint Patient presents with: Established Patient HPI: Natalia Leigh is a 72 year old female who presents here today for follow up breast cancer. H/o DX:Right Breast cancer-ER/ME positive pT1b, N0, intermediate risk score on [...] - ICD9: 174.4, V86.0, ICD10: C50.411, Z17.0 ER/ME positive pT1b, N0, intermediate risk score on [...] as necessary for today's visit. Miryam Ramirez APRN.[facility] 05-15-2023 History of Present illness Narrative Chief Complaint Patient presents with: Established Patient HPI: Natalia Leigh is a 72 year old female who presents here today for follow up breast cancer. H/o DX:Right Breast cancer-ER/ME positive pT1b, N0, intermediate risk score on [...] - ICD9: 174.4, V86.0, ICD10: C50.411, Z17.0 ER/ME positive pT1b, N0, intermediate risk score on [...] as necessary for today's visit. Miryam Ramirez APRN.MINIATURE SET DESIGNER documented in this encounter [facility] 12-22-2022 Note HNO ID: [id number] Author: Iris Ulloa MD Service: ? Author Type: Physician Type: Progress Notes Filed: 12/22/2022 12:33 PM Note Text: Globe Mounter offered: Patient declines. Natalia is a 72 [...] Multiple0 Live Births0 Comment: One daughter is Production Superintendent History LMP: Postmenopausal Age at Menarche: Age at First : Age at Menopause: Production Superintendent History Comments: Sexual Activity: Yes; Male Contraception: [...] Procedure Laterality Date BMD APPENDICULAR (ENDOCRIN)_*FL BONE UTQVKLY10/98 BX BREAST W/DEVICE 1ST LESION ULTRASOUND GUID [...] RIGHT BREAST LUMPECTOMY PAST SURGICAL HISTORY OF [place] Teeth x 4 PAST SURGICAL HISTORY OF 2020 nerve surgery PAST SURGICAL HISTORY OF 2019 melanoma removed from left leg TONSILLECTOMY AND ADENOIDECTOMY FAMILY HISTORY Problem Relation Age of Onset Heart Mother PASSED FROM [place] Hypertension Mother Cancer Father PASSED FROM [facility] Alcohol/Drug Father Breast Cancer Sister PASSED Cancer [...] external genitalia normal, normal Bartholin's glands, urethra, Coalfield's glands, no vulvar lesions, no cervical lesions, [...] or sooner as needed Iris Ulloa DO [facility] 12-22-2022 History of Present illness Narrative Globe Mounter offered: Patient declines. Natalia is a 72 [...] Multiple0 Live Births0 Comment: One daughter is Production Superintendent History LMP: Postmenopausal Age at Menarche: Age at First : Age at Menopause: Production Superintendent History Comments: Sexual Activity: Yes; Male Contraception: [...] Procedure Laterality Date BMD APPENDICULAR (ENDOCRIN)_*FL BONE UTUEMRY31/98 BX BREAST W/DEVICE 1ST LESION ULTRASOUND GUID [...] RIGHT BREAST LUMPECTOMY PAST SURGICAL HISTORY OF [place] Teeth x 4 PAST SURGICAL HISTORY OF 2020 nerve surgery PAST SURGICAL HISTORY OF 2019 melanoma removed from left leg TONSILLECTOMY & ADENOIDECTOMY <AGE 10 FAMILY HISTORY Problem Relation Age of Onset Heart Mother PASSED FROM [place] Hypertension Mother Cancer Father PASSED FROM [facility] Alcohol/Drug Father Breast Cancer Sister PASSED Cancer [...] external genitalia normal, normal Bartholin's glands, urethra, Coalfield's glands, no vulvar lesions, no cervical lesions, [...] needed Iris Ulloa, documented in this encounter [facility] 11-14-2022 Note HNO ID: [id number] Author: Miryam Ramirez APRN.MINIATURE SET DESIGNER Service: ? Author Type: Nurse Practitioner Type: Progress Notes Filed: 11/14/2022 3:29 PM Note Text: Chief Complaint Patient presents with: Established Patient HPI: Natalia Leigh is a 72 year old female who presents here today for follow up breast cancer. H/o DX:Right Breast cancer-ER/ME positive pT1b, N0, intermediate risk score on [...] - ICD9: 174.4, V86.0, ICD10: C50.411, Z17.0 ER/ME positive pT1b, N0, intermediate risk score on Oncotype DX. S/p R mastectomy. Received TC with no delays. - No concerning findings on exam. - Tolerating femara well. - Continue femara. - L mammogram due in August 2022. - Needs DIRECTOR OF PHARMACY appt.-est. care-Urinary incont.-last pelvic exam years ago by Hina Sky. - Follow up in 6 months. - Pt. aware to call office with any questions/concerns. The patient indicates understanding of these issues and agrees with the plan. All documentation from previous visit of 11/08/21-myself was copied and pasted, documentation has been reviewed and edited as necessary for today's visit. Miryam Ramirez APRN.[facility] 05-09-2022 History of Present illness Narrative Chief Complaint Patient presents with: Established Patient HPI: Natalia Leigh is a 71 year old female who presents here today for follow up breast cancer. H/o DX:Right Breast cancer-ER/ME positive pT1b, N0, intermediate risk score on [...] - ICD9: 174.4, V86.0, ICD10: C50.411, Z17.0 ER/ME positive pT1b, N0, intermediate risk score on [...] Miryam Ramirez APRN.NAZARIO documented in this encounter [facility] 11-08-2021 History of Present illness Narrative Chief Complaint Patient presents with: Established Patient HPI: Natalia Leigh is a 71 year old female who presents here today for follow up breast cancer. H/o DX:Right Breast cancer-ER/ME positive pT1b, N0, intermediate risk score on [...] was dx with melanoma-L calf-was followed in [place]-Dr. Deng-DERM. She is followed now by Dr. [...] - ICD9: 174.4, V86.0, ICD10: C50.411, Z17.0 ER/ME positive pT1b, N0, intermediate risk score on [...] Miryam Ramirez APRN.NAZARIO documented in this encounter [facility] Evaluation note There may be informa tion available, but it has not been provided by the sender. [facility] Work Phone: [facility] encounter [facility] Diagnosis Malignant neoplasm of upper-outer quadrant of right breast in female, estrogen receptor positive (HCC)- Primary Encounter for screening mammogram for high-risk patient [facility] Diagnosis Encounter for gynecological examination (general) (routine) without abnormal findings- Primary Encounter for screening mammogram for breast cancer Mixed incontinence Mixed incontinence urge and stress (male)(female) documented [facility]* Diagnosis Malignant neoplasm of upper-outer quadrant of right breast in female, estrogen receptor positive (HCC)- Primary documented in this encounter [facility] HospitalInstructionsNo information available.[facility] Work Phone: Reason for referral [...] Miryam Arzate APRN.CNP [address] [place] [address] [facility] [address] [place] [address] Referral ID Status Reason Start Date Expiration Date Visits Requested Visits Authorized [id number] Authorized Auto-Generat ed Referral 05/09/2022 06/08/2023 1 1 [facility] Chief Complaint Chief Complaint Description Start Date [...] Ulloa MD [address] [place] [address] [facility] [place] [address] [place] [address] Referral ID Status Reason Start Date Expiration Date Visits Requested Visits Authorized [id number] Pending Review Auto-Generat ed Referral 12/22/2022 12/22/2023 1 1 Specialty Diagnoses / Procedures Referred By Contac t Referred To Contact Diagnoses Mixed incontinence Procedures CONSULT TO URO GYNECOLOGY Iris Ulloa MD [address] [facility] [place] [place] Reshma Richard MD [address] [place] [address] Referral ID Status Reason Start Date Expiration Date Visits Requested Visits Authorized [id number] Ref Not Required PCP Requested Referral 12/22/2022 12/22/2023 1 1 Specialty Diagnoses / Procedures Referred By Shruthi calderón Referred To Contact [facility] Diagnoses Encounter for screening mammogram for breast cancer Procedures CARIDAD SCREENING SCREENING MAMMOGRAPHY BI 2-VIEW BREAST INC CAD Iris Ulloa MD [address] [place] [address] [facility] [address] [place] [address] Referral ID Status Reason Start Date Expiration Date Visits Requested Visits Authorized [id number] Pending Review Auto-Generat ed Referral 12/22/2022 01/21/2024 [...] or prosecute any alcohol or drug abuse patient.[facility] the event this information is protected by the Federal Confidentiality of Alcohol and Drug Abuse Patient Records regulations: The Federal rules restrict any use of the information to criminally investigate or prosecute any alcohol or drug abuse patient.[facility] Hospital[facility] the event this information is protected by the Federal Confidentiality of Alcohol and Drug Abuse Patient Records regulations: The Federal rules restrict any use of the information to criminally investigate or prosecute any alcohol or drug abuse patient.[facility] Hospital[facility] the event this information is protected by the Federal Confidentiality of Alcohol and Drug Abuse Patient Records regulations: The Federal rules restrict any use of the information to criminally investigate or prosecute any alcohol or drug abuse patient.[facility] Care Teams (unrecognized sec tion and content) Structural Steel Detailer Relationship Specialty Start Date End Date Anderson Nicholas MD PCP - General 04/06/08 Structural Steel Detailer Relationship Specialty Start Date End Date Anderson Nicholas MD PCP - General 04/06/08 Structural Steel Detailer Relationship Specialty Start Date End Date Anderson Nicholas MD PCP - General 04/06/08 INFORMATION SOURCE (unrecogn ized section and content) DATE CREATED AUTHOR AUTHOR'S ORGANAMY ATION 07/04/2023 [facility] FOR RECORDS PERTAINING TO PATIENTS WHO [...] BE BASED ON THE PRIMARY CLINICAL RECORDS. [facility]. provides no warranty or guarantee of the accuracy or completeness of information in this document.
[2023-07-26] MEDS: 0.9% Normal Saline (1000mL) 1,000 ML 40 ML IV (01:17)
--- NOTE | 2023-07-26 03:06 | EKG12_ITS ---
Test Reason : POST CATH Blood Pressure : / mmHG Vent. Rate : 083 BPM Atrial Rate : 083 BPM P-R Int : 194 ms QRS Dur : 080 ms QT Int : 372 ms P-R-T Axes : 044 -21 046 degrees QTc Int : 437 ms Normal sinus rhythm Anteroseptal infarct , age undetermined Abnormal ECG Confirmed by TRACY DUBOSE, DERIC ([id number]), science editor MUNA SHAIKH ([id number]) on 07/28/2023 6:28:00 AM Referred By: Confirmed By:DERIC MOLINA MD
[2023-07-26 06:23] LABS: Absolute Lymphocyte Count 1.71 X10^3/uL (0.83-4.51); Basophil# 0.12 X10^3/uL; Eosinophils% 1.7 % (0-5); Hematocrit 41.6 % (37-47); Hemoglobin 13.2 g/dL (12.0-15.0); Lymphocyte # 1.71 X10^3/ul (0.83-4.51); Lymphocyte % 14.6 % (19-41); Mean Corp Hgb Conc 31.7 g/dL (32-36); Mean Corpuscular Hgb 30.3 pg (27.0-32.0); Mean Corpuscular Volume 95.4 fL (81-99); Mean Platelet Vol. 11.2 fl (6.2-12.0); Monocyte# 0.64 X10^3/uL; Monocyte% 5.4 % (0-10); NRBC Flagged by Analyzer 0 % (0-5); Neutrophil # 9.03 X10^3/uL (2.7-7.7); Neutrophil % 76.9 % (47-70); Platelet Count 369 K/mm3 (150-450); RBC Distribution Width CV 14.2 % (11.6-14.6); RBC Distribution Width SD 49.7 fl (35.1-43.9); Red Blood Count 4.36 M/mm3 (4.2-5.4); White Blood Count 11.8 K/mm3 (4.4-11.0)
[2023-07-26 06:46] LABS: Anion Gap 5 (5-15); BUN 10 mg/dL (7-18); Calcium,Total 9.8 mg/dL (8.5-10.1); Chloride 109 mmol/L (98-107); Creatinine, Serum 0.83 mg/dL (0.55-1.02); EST Glomerular Filtration Rate 71 mL/min (>60); Est Glom Filt Rate - Afr Amer 86 mL/min (>60); Estimated Creatinine Clearance 63.29 ml/min; Glucose 118 mg/dL (74-106); Magnesium 1.9 mg/dL (1.6-2.6); Phosphorus 2.7 mg/dL (2.5-4.9); Potassium 4.4 mmol/L (3.5-5.1); Sodium Level 140 mmol/L (136-145); Thyroid Stim Hormone (TSH) 1.87 uIU/mL (0.358-3.74)
--- NOTE | 2023-07-26 08:03 | PN.HOSP_ITS ---
Reason for Visit Reason for Visit: Diagnoses Depression, unspecified (07/26/23) Takotsubo syndrome (07/26/23) Chest pain, unspecified (07/26/23) Personal history of transient ischemic attack (TIA), and cerebral infarction wi thout residual deficits (07/26/23) Subjective Subjective Feels well. No chest pain. No shortness of breath. Objective Data Objective Data Vital Signs: Vital Signs Temp Pulse Resp BP Pulse Ox O2 Del Method O2 Flow Rate 36.3 C L 85 18 158/78 H 98 Nasal Cannula 2 07/26/23 03:00 07/26/23 03:00 07/26/23 03:00 07/26/23 03:00 07/26/23 03:00 07/26/23 07:39 07/26/23 07:39 Oxygen Flow Rate (L/min) 2 Oxygen Delivery Method Nasal Cannula Weight: 86.5 kg Body Mass Index (BMI) 32.7 Intake & Output: Intake and Output for Last 24 Hours 07/24/23 07/25/23 07/26/23 23:59 23:59 23:59 Output Total 1775 / 1775 Balance -1775 / -1775 Lab / Micro Data 07/26/23 06:00 07/26/23 06:00 Labs: Laboratory Results - last 24 hr 07/26/23 06:00: WBC 11.8 H, RBC 4.36, Hgb 13.2, Hct 41.6, MCV 95.4, MCH 30.3, MCHC 31.7 L, RDW Std Deviation 49.7 H, RDW Coeff of Kenisha 14.2, Plt Count 369, MPV 11.2, Immature Gran % (Auto) 0.400, Neut % (Auto) 76.9 H, Lymph % (Auto) 14.6 L, Erath % (Auto) 5.4, Eos % (Auto) 1.7, Baso % (Auto) 1.0, Absolute Neuts (auto) 9.0 H, Absolute Lymphs (auto) 1.71, Nucleated RBC % 0, Sodium 140, Potassium 4.4, Chloride 109 H, Carbon Dioxide 26.0, Anion Gap 5, BUN 10, Creatinine 0.83, Estim Creat Clear Calc 63.29, Est GFR (MDRD) Af Amer 86, Est GFR (MDRD) Non-Af 71, BUN/Creatinine Ratio 12.0, Glucose 118 H, Calcium 9.8, Phosphorus 2.7, Magnesium 1.9, TSH 1.87 Physical Exam Const alert Constitutional Narrative: Pleasant. Smiling. No respiratory distress. No conversational dyspnea. HEENT head/scalp atraumatic and moist oral mucous membranes Resp normal respiratory effort, no retractions, no use of accessory muscles and clear to auscultation bilaterally Cardio regular rate, regular rhythm, S1 normal heart sound and S2 normal heart sound GI normal to inspection, nondistended, normoactive bowel sounds, soft to palpation, non-tender and non-distended Extremity normal to inspection and no clubbing, cyanosis or edema Neuro moves all extremities and no focal motor deficits Sensorium / Orientation: awake and alert Speech: speech normal Motor Exam: strength 5/5 throughout Psych affect normal Assessment & Plan Assessment/Plan (1) Takotsubo cardiomyopathy: (2) Chest pain: QUALIFIERS: Chest pain type: unspecified Qualified Code(s): R07.9 - Chest pain, unspecified (3) Uncontrolled depression: (4) History of right MCA stroke: PLAN: Plan Takotsubo Cardiomyopathy * with no flow-limiting ischemia on emergent LHC * EF on LHC was 20-25%. * check echo * Cardiology switching metoprolol to carvedilol 12.5 mg twice daily. Also starting losartan 50 mg twice daily. He did not feel diuresis was indicated at this time. * Patient follow-up with cardiology as outpatient. Depression * likely situational given recent events. * continue vilazodone, mirtazapine, * follow up with psychiatry/counseling as outpt. Recent history of CVA; * diagnosed on June 23, 2023 with patient falling in her bathroom striking her head around 6:00 AM and then having a severe Right-sided headache with Left-sided weakness with CTA head positive Acute Right MCA Occlusion for which she was then treated with TNK and unfortunately then developed a SAH; * residual Left hemiparesis * In inpatient rehab since on July 07, 2023 * PT OT * Hopefully she will be able to return to rehabilitation soon. Chronic conditions: * Essential hypertension - Continue current regimen plus give prn IV Hydralazine for systolic blood pressure > 160 mm Hg. * Obesity; with a BMI of 32.7 this admission - Weight loss will be recommended. * Glaucoma - Resume eye drops s previous. * OA - Stable. Give Tylenol prn. * Osteoporosis - Continue Alendronate as an outpatient. * History of breast cancer; s/p Right mastectomy (2014) after lumpectomy (1991) * GERD; with history of gastric ulcer DVT prophylaxis - SCDs Disposition to be determined. Patient was transferred from acute rehab to the floor for the STEMI alert. Will need to see about having therapy see her and if she would require going back to rehab versus home versus [facility] facility. Case management to assist. Discussed with family at bedside.
--- NOTE | 2023-07-26 08:11 | ECHOCS_ITS ---
Reason For Study: CHEST PAIN Procedure This was a 2D Doppler, Color Flow transthoracic echocardiogram. Exam performed portable in patient room. Left Ventricle Normal LV size. Moderate segmental systolic dysfunction (see wall motion). The left ventricular ejection fraction is 45 %. Hubert : Akinetic. Mid-anteroseptal : Severely Hypokinetic. Lateral Hubert : Akinetic. Septal Hubert : Akinetic. Inferior Hubert : Severely Hypokinetic. Right Ventricle Normal RV size. Normal systolic function. Atria Normal left atrium. Normal right atrium. Mitral Valve Normal mitral valve. Tricuspid Valve Normal tricuspid valve. Mild (1+) tricuspid valve insufficiency. Pulmonary artery systolic pressure is 18 mmHg. Aortic Valve Normal aortic valve. Trisinus/trileaflet aortic valve. Pulmonic Valve Normal pulmonic valve. Great Vessels Normal aortic root. The pulmonary artery is normal size. Normal inferior vena cava. Pericardium/Pleural No pericardial effusion. MMode/2D Measurements & Calculations LVIDd: 5.0 cm IVSd: 0.84 cm LVAd ap4: 26.9 cm2 LVIDs: 3.3 cm LVPWd: 0.92 cm LVLd ap4: 7.5 cm RVDd: 2.7 cm FS: 33.3 % EDV(MOD-sp4): 78.6 ml EDV(sp4-el): 81.7 ml LVAs ap4: 17.9 cm2 LVLs ap4: 7.2 cm ESV(MOD-sp4): 36.5 ml ESV(sp4-el): 37.4 ml EF(MOD-sp4): 53.5 % EF(sp4-el): 54.2 % LVAd ap2: 24.8 cm2 SV(MOD-sp4): 42.1 ml SV(MOD-sp2): 40.1 ml LVLd ap2: 8.3 cm EDV(MOD-sp2): 63.1 ml EDV(sp2-el): 63.1 ml LVAs ap2: 14.6 cm2 LVLs ap2: 7.6 cm ESV(MOD-sp2): 23.0 ml ESV(sp2-el): 23.7 ml EF(MOD-sp2): 63.6 % SV(sp4-el): 44.3 ml LA dimension(2D): 2.0 cm TAPSE: 1.8 cm Time Measurements MV dec time: 0.18 sec Doppler Measurements & Calculations MV E max meño: 57.2 cm/sec Lat Peak E' Meño: 4.0 cm/sec Med Peak E' Meño: 4.4 cm/sec MV A max meño: 91.7 cm/sec E/E' lat: 14.1 E/E' med: 13.2 MV E/A: 0.62 MV V2 max: 106.7 cm/sec MV P1/2t max meño: 70.0 cm/sec Ao V2 max: 118.4 cm/sec MV max P.6 mmHg MV P1/2t: 67.0 msec Ao max P.6 mmHg MV V2 mean: 54.2 cm/sec MV dec slope: 306.0 cm/sec2 Ao V2 mean: 88.3 cm/sec MV mean P.4 mmHg MVA(P1/2t): 3.3 cm2 Ao mean P.5 mmHg MV V2 VTI: 24.6 cm Ao V2 VTI: 22.4 cm AV (velocity ratio): 0.58 LV V1 max: 74.7 cm/sec PA V2 max: 97.8 cm/sec TR max meño: 193.8 cm/sec LV V1 max P.2 mmHg PA V2 mean: 69.3 cm/sec TR max P.0 mmHg LV V1 mean P.4 mmHg LV V1 mean: 57.7 cm/sec LV V1 VTI: 13.1 cm ECHO/Echo Complete W/ Contrast Interpretation Summary Moderate segmental systolic dysfunction (see wall motion). The left ventricular ejection fraction is 45 %. Wall motion abnormality noted above consistent with Takotsubo cardiomyopathy. C ontrast injection was performed. Ordering Physician: Bo Fong Referring Physician: Bo Nicholas Performed By: Niru Shine RDCS, RVT
[2023-07-26] MEDS: Ondansetron 4 MG/2 ML Vial IV (09:01)
[2023-07-26] MEDS: 0.9% Saline Lock 10 ML Syringe IV (09:01)
[2023-07-26] MEDS: levoFLOXacin IV 250 MG/50 ML BAG 50 MG IV (09:08)
[2023-07-26] MEDS: Calcium Carb/Vitamin D 1 TABLET Tablet PO (10:17)
[2023-07-26] MEDS: Acetaminophen 325 MG Tablet 650 MG PO (10:17)
[2023-07-26] MEDS: Carvedilol 12.5 MG Tablet PO ×2 (10:17→20:41)
[2023-07-26] MEDS: VILAZODONE HYDROCHLORIDE 10 MG TABLET 40 MG PO (10:18)
[2023-07-26] MEDS: Meloxicam 7.5 MG Tablet PO ×2 (10:18→20:41)
[2023-07-26] MEDS: Pantoprazole Sodium 20 MG Tablet PO (10:18)
--- NOTE | 2023-07-26 11:40 | PCM.CONS.C ---
Assessment & Plan Assessment/Plan (1) Takotsubo syndrome: PLAN: The patient presented with an EKG was diffuse ST segment elevation in the anterior lateral leads. Was taken emergently to the [facility] where mild to moderate coronary artery disease was documented and this was diagnosed as Takotsubo syndrome. She did have an intense stressful situation related to her CVA and subsequent rehab. The patient has been switched from metoprolol to Coreg 12.5 mg twice daily. Her home Procardia has been discontinued. I recommend she have losartan 50 mg twice daily added to her medical regimen. She has no evidence of heart failure or volume overload. So I did I do not believe that diuretic therapy is indicated at this time. The patient should have an echocardiogram repeated in 6 weeks to evaluate her LV recovery. (2) Subarachnoid hemorrhage: PLAN: The patient developed a subarachnoid hemorrhage after she received TNK for her middle cerebral artery occlusion. There is also a question of her falling and hitting her head although she denies this. The fact that she has a subarachnoid hemorrhage complicates further treatment of her cardiovascular status as well as oral anticoagulation for possible embolic origin of her stroke. The patient does have an event monitor that is supplied by [facility] that she is to return July 2018. The family is going to call tomorrow morning to obtain records to see if there is been any atrial fibrillation documented. (3) Ischemic cerebrovascular accident (CVA): PLAN: This was treated with TNK complicated by subarachnoid hemorrhage and subsequent transfer to [facility] she is now in inpatient rehab and progressing with recovery of her left-sided deficits. (4) Hyperlipidemia: QUALIFIERS: Hyperlipidemia type: mixed hyperlipidemia Qualified Code(s): E78.2 - Mixed hyperlipidemia PLAN: The patient reports her lipids have been well-controlled on atorvastatin. (5) HTN (hypertension): QUALIFIERS: Hypertension type: primary hypertension Qualified Code(s): I10 - Essential (primary) hypertension PLAN: Plan 1. The patient's blood pressure has been intermittently elevated on this admission to the acute care setting. We will address this by titrating her medical regiment to treat her for LV recovery. 2. Coreg will replace metoprolol. We will add losartan 50 mg twice daily with a hold for systolic less than 100. 3. 2D echocardiogram in 6 weeks. 4. Follow-up with the [facility] in the next 2 weeks. 5. Obtain final determination from the event recorder placed by [facility] neurology department. 6. Obtain an opinion from neurology on the possibility of needing to add oral anticoagulation therapy and what they would recommend. This can be done with the [facility] neurology group. HPI Consult Data Date of Consult: 07/26/23 HPI Narrative Reason for Consultation: Takotsubo syndrome HPI Narrative: GILBERTO CAMPBELL, is a 72 F who presents with an EKG consistent with an anterior lateral STEMI last evening on the rehab unit. The patient was taken emergently to the [facility] by Dr. Love. By report the patient had mild to moderate coronary artery disease and was diagnosed with Takotsubo syndrome. The patient had experienced intense pain at the time of her presentation on the rehab floor when the EKG showed an extensive ST elevation in the anterior lateral leads. The patient had originally presented at [facility] and was treated for middle cerebral artery occlusion with TNK and developed a subarachnoid hemorrhage. She was transferred to [facility] and was transferred then back for inpatient rehab July 07, 2023. She had been doing fairly well but there was significant psychosocial issues ongoing. She did not want to be in rehab she wanted to be at home and there were other issues as well creating intense stressful situation and within the family. The patient's initial troponin was 62. We do not have a serial troponin. The patient is asymptomatic at this point in time resting comfortably in a comfort position in bed on room air with good O2 saturations. The patient has no prior history of coronary artery disease. She does not have a history of atrial fibrillation to her knowledge she did have some carotid artery disease noted at the time of her workup for her CVA. Her CVA resulted in left-sided severe impairment which has markedly improved by her report with rehab. The patient is also wearing an event recorder that was given to her by [facility] neurology department. This event recorder comes with a cell phone which I presume is transmitting the data to a central receiving station. She has not been notified of any arrhythmias. She is also not been notified since it was discontinued yesterday at the time of her event. The patient's telemetry has shown no send no atrial fibrillation and she has no history of atrial fibs to her knowledge. There is an uncertain etiology of her middle cerebral artery occlusion which occurred then started this CVA event. The patient has a family history of coronary artery disease mother dying at 62 of an infarct. She has hypertensive control with medical therapy she is hyperlipidemic on Lipitor she has never smoked and is not diabetic. [facility] Medical History (Updated 07/26/23 @ 11:[address] Stephane Kemp MD) Depression Gastric ulcer GERD (gastroesophageal reflux disease) Glaucoma History of breast cancer HTN (hypertension) Left hand weakness Left posterior interosseous nerve syndrome Lesion of right radial nerve Major depressive disorder, recurrent episode, moderate Obesity (BMI 30.0-34.9) Osteoarthritis Osteoporosis Sleep apnea Stroke/cerebrovascular accident Tendonitis Ulnar neuropathy at elbow of left upper extremity Home Medications calcium carbonate 600 mg-vitamin D3 20 mcg (800 unit) tablet 1 tablet PO DAILY@0800 supplement 08/10/14 [History Last Taken Unknown] latanoprost 0.005 % eye drops 1 drp EACH EYE QHS Eye drops 08/10/14 [History Last Taken Unknown] acetaminophen 650 mg tablet,extended release (Tylenol Arthritis Pain) 650 mg PO DAILY pain 08/29/20 [History Last Taken Unknown] letrozole 2.5 mg tablet 2.5 mg PO DAILY Breast cancer 08/29/20 [History Last Taken Unknown] magnesium 250 mg tablet 250 mg PO DAILY supplement 08/29/20 [History Last Taken Unknown] vilazodone 20 mg tablet 10 mg PO DAILY Antidepressant 08/29/20 [History Last Taken 07/06/23] omeprazole 20 mg capsule,delayed release 20 mg PO DAILY GERD 08/30/20 [History Last Taken Unknown] meloxicam 15 mg tablet 7.5 mg (1/2 x 15 mg) PO BID Joint pain #30 tabs 08/19/21 [Rx Last Taken Unknown] alendronate 70 mg tablet 70 mg PO Q7D Bone health 07/06/23 [History Last Taken Unknown] mirtazapine 30 mg tablet 30 mg PO QHS Sleep 07/06/23 [History Last Taken Unknown] levetiracetam 500 mg tablet (Keppra) 500 mg PO BID seizure 07/26/23 [History Last Taken Unknown] lisinopril 20 mg tablet 20 mg PO DAILY blood pressure 07/26/23 [History Last Taken Unknown] metoprolol tartrate 25 mg tablet 25 mg PO BID HR and BP 07/26/23 [History Last Taken Unknown] nifedipine 30 mg tablet,extended release 24 hr (Procardia XL) 30 mg PO DAILY blood pressure 07/26/23 [History Last Taken Unknown] polyethylene glycol 3350 17 gram/dose oral powder (Miralax) 17 g PO DAILY constipation 07/26/23 [History Last Taken Unknown] Allergy/AdvReac Type Severity Reaction Status Date / Time Penicillins [PCN] Allergy Severe Anaphylaxis Verified 06/23/23 07:41 Family History Aunt Cancer Sister Cancer Surgical History History of lumpectomy of right breast History of right mastectomy Social History household members: spouse housing: other details: One-story house with a basement. Laundry is upstairs number of children: 1 current occupational status: retired Smoking Status: Never smoker Electronic Cigarette Use: not used second hand exposure: No alcohol intake: current alcohol intake frequency: holidays/special occasions only substance use type: does not use ROS Constitutional Constitutional: Reports as per HPI Eyes Eyes: Reports systems reviewed and no addt'l complaints, except as documented ENT HEENT: Reports systems reviewed and no addt'l complaints, except as documented Cardiovascular Cardiovascular: Reports as per HPI Respiratory/Chest Respiratory/Chest: Reports as per HPI Gastrointestinal Gastrointestinal: Reports systems reviewed and no addt'l complaints, except as documented Genitourinary Genitourinary: Reports systems reviewed and no addt'l complaints, except as documented Musculoskeletal Musculoskeletal: Reports as per HPI Integumentary Integumentary: Reports systems reviewed and no addt'l complaints, except as documented Neurologic Neurologic: Reports as per HPI Psychiatric Psychiatric: Reports as per HPI Endocrine Endocrinology: Reports systems reviewed and no addt'l complaints, except as documented Hematologic/Lymphatic Hematologic/Lymphatic: Reports systems reviewed and no addt'l complaints, except as documented Allergic/Immunologic Allergic/Immunologic: Reports systems reviewed and no addt'l complaints, except as documented Physical Exam Const oriented x3 HEENT normocephalic Eyes EOMs intact bilaterally Neck no JVD and no carotid bruits Chest inspection of chest normal Resp normal respiratory effort and clear to auscultation bilaterally Cardio regular rate, regular rhythm, S1 normal heart sound, S2 normal heart sound, no murmurs, no rub and no gallops Cardio Narrative: Distant heart tones GI soft to palpation Extremity no pedal edema Skin no rashes or lesions noted Neuro Neuro Narrative: The patient is able to lift her left arm and able to use her hand she is also able to move her left leg. She obviously favors her right extremities. Psych mental status grossly normal Risk Stratification Risk Stratification Applicable: No Charges/Coding Visit Charges Inpatient E&M: 83751 Init Hosp L3 Objective Data Vital Signs: Vital Signs Temp Pulse Resp BP Pulse Ox O2 Del Method O2 Flow Rate 97.5 F L 72 18 143/75 H 100 Nasal Cannula 2 07/26/23 09:10 07/26/23 09:10 07/26/23 09:10 07/26/23 09:10 07/26/23 09:10 07/26/23 09:10 07/26/23 09:10 Oxygen Flow Rate (L/min) 2 Oxygen Delivery Method Nasal Cannula Weight: 190 lb 11.198 oz Body Mass Index (BMI) 32.7 Intake & Output: Intake and Output for Last 24 Hours 07/24/23 07/25/23 07/26/23 23:59 23:59 23:59 Intake Total 358.67 / 358.67 Output Total 1775 / 1775 Balance -1416.33 / -1416.33 Lab / Micro Data Attestation: I reviewed the patient's lab results. 07/26/23 06:00 07/26/23 06:00 Labs: Laboratory Results - last 24 hr 07/26/23 06:00: WBC 11.8 H, RBC 4.36, Hgb 13.2, Hct 41.6, MCV 95.4, MCH 30.3, MCHC 31.7 L, RDW Std Deviation 49.7 H, RDW Coeff of Kenisha 14.2, Plt Count 369, MPV 11.2, Immature Gran % (Auto) 0.400, Neut % (Auto) 76.9 H, Lymph % (Auto) 14.6 L, Johnston % (Auto) 5.4, Eos % (Auto) 1.7, Baso % (Auto) 1.0, Absolute Neuts (auto) 9.0 H, Absolute Lymphs (auto) 1.71, Nucleated RBC % 0, Sodium 140, Potassium 4.4, Chloride 109 H, Carbon Dioxide 26.0, Anion Gap 5, BUN 10, Creatinine 0.83, Estim Creat Clear Calc 63.29, Est GFR (MDRD) Af Amer 86, Est GFR (MDRD) Non-Af 71, BUN/Creatinine Ratio 12.0, Glucose 118 H, Calcium 9.8, Phosphorus 2.7, Magnesium 1.9, TSH 1.87 Rhythm Strip Rhythm Strip: Sinus Rhythm Rate: 72 Cardiology Labs/Tests 07/26/23 06:00: WBC 11.8 H, RBC 4.36, Hgb 13.2, Hct 41.6, MCV 95.4, MCH 30.3, MCHC 31.7 L, Plt Count 369, MPV 11.2, Immature Gran % (Auto) 0.400, Neut % (Auto) 76.9 H, Lymph % (Auto) 14.6 L, Johnston % (Auto) 5.4, Eos % (Auto) 1.7, Baso % (Auto) 1.0, Absolute Neuts (auto) 9.0 H, Nucleated RBC % 0, Sodium 140, Potassium 4.4, Chloride 109 H, Carbon Dioxide 26.0, Anion Gap 5, BUN 10, Creatinine 0.83, Est GFR (MDRD) Af Amer 86, Est GFR (MDRD) Non-Af 71, BUN/Creatinine Ratio 12.0, Glucose 118 H, Calcium 9.8, Phosphorus 2.7, Magnesium 1.9 Rhythm: EKG: ECHO: Stress Test: Cardiac Cath: PCI: CT Surgery: Holter monitor: EPS: PPM: CXR: Chest CT Scan: EKG Follow-up EKG: Attestation: I personally reviewed and interpreted this EKG as follows: Interpretation: Normal sinus rhythm evolving ST elevations in leads I and aVL and across the precordium. There are deep Q waves across the precordium.
[2023-07-26] MEDS: Losartan Potassium 50 MG Tablet PO ×2 (13:14→20:41)
[2023-07-26 13:39] LABS: Troponin-I HS 59499 pg/mL (3.0-54.0)
[2023-07-26 17:01] LABS: Troponin-I HS > 25000 pg/mL (3.0-54.0)
[2023-07-26] MEDS: Latanoprost 0.005% 1 Bottle 1 DRP EACH EYE (20:41)
[2023-07-26] MEDS: Mirtazapine 30 MG Tablet PO (20:41)
[2023-07-27 01:45] VITALS: BMI 32.3
[2023-07-27 04:30] VITALS: BP 144/70; PULSE 70; RESP 18; TEMP 36.6; O2SAT 95
--- NOTE | 2023-07-27 08:50 | PN.HOSP_ITS ---
Reason for Visit Reason for Visit: Diagnoses Mixed hyperlipidemia (07/26/23) Depression, unspecified (07/26/23) Essential (primary) hypertension (07/26/23) Takotsubo syndrome (07/26/23) Nontraumatic subarachnoid hemorrhage, unspecified (07/26/23) Cerebral infarction, unspecified (07/26/23) Chest pain, unspecified (07/26/23) Personal history of transient ischemic attack (TIA), and cerebral infarction without residual deficits (07/26/23) Objective Data Objective Data Vital Signs: Vital Signs Temp Pulse Resp BP Pulse Ox O2 Del Method O2 Flow Rate 97.9 F 70 18 144/70 H 95 Room Air 2 07/27/23 04:30 07/27/23 04:30 07/27/23 04:30 07/27/23 04:30 07/27/23 04:30 07/27/23 08:28 07/26/23 22:30 Oxygen Flow Rate (L/min) 2 Oxygen Delivery Method Room Air Weight: 188 lb 7.924 oz Body Mass Index (BMI) 32.3 Intake & Output: Intake and Output for Last 24 Hours 07/25/23 07/26/23 07/27/23 23:59 23:59 23:59 Intake Total 1078.67 / 1078.67 Output Total 3050 / 3050 400 / 400 Balance -1971.33 / -1971.33 -400 / -400 Lab / Micro Data 07/26/23 06:00 07/26/23 06:00 Labs: Laboratory Results - last 24 hr 07/26/23 12:41: Troponin I High Sens 34338 H* 07/26/23 13:01: Troponin I High Sens > 14753 H* Rhythm Strip Rhythm Strip: Sinus Rhythm Rate: 72 Assessment & Plan Assessment/Plan (1) Takotsubo cardiomyopathy: (2) Chest pain: QUALIFIERS: Chest pain type: unspecified Qualified Code(s): R07.9 - Chest pain, unspecified (3) Uncontrolled depression: (4) History of right MCA stroke: PLAN: Plan Takotsubo Cardiomyopathy * with no flow-limiting ischemia on emergent LHC * EF on LHC was 20-25%. * check echo * Cardiology switching metoprolol to carvedilol 12.5 mg twice daily. Also starting losartan 50 mg twice daily. He did not feel diuresis was indicated at this time. * Patient follow-up with cardiology as outpatient. Depression * likely situational given recent events. * continue vilazodone, mirtazapine, * follow up with psychiatry/counseling as outpt. Recent history of CVA; * diagnosed on June 23, 2023 with patient falling in her bathroom striking her head around 6:00 AM and then having a severe Right-sided headache with Left-sided weakness with CTA head positive Acute Right MCA Occlusion for which she was then treated with TNK and unfortunately then developed a SAH; * residual Left hemiparesis * In inpatient rehab since on July 07, 2023 * PT OT * Hopefully she will be able to return to rehabilitation soon. Chronic conditions: * Essential hypertension - Continue current regimen plus give prn IV Hydralazine for systolic blood pressure > 160 mm Hg. * Obesity; with a BMI of 32.7 this admission - Weight loss will be recommended. * Glaucoma - Resume eye drops s previous. * OA - Stable. Give Tylenol prn. * Osteoporosis - Continue Alendronate as an outpatient. * History of breast cancer; s/p Right mastectomy (2014) after lumpectomy (1991) * GERD; with history of gastric ulcer DVT prophylaxis - SCDs Disposition to be determined. Patient was transferred from acute rehab to the floor for the STEMI alert. Will need to see about having therapy see her and if she would require going back to rehab versus home versus care home facility. Case management to assist. Discussed with family at bedside.
--- NOTE | 2023-07-27 08:50 | PCM.PN.HOSP ---
Reason for Visit Reason for Visit: Diagnoses Mixed hyperlipidemia (07/26/23) Depression, unspecified (07/26/23) Essential (primary) hypertension (07/26/23) Takotsubo syndrome (07/26/23) Nontraumatic subarachnoid hemorrhage, unspecified (07/26/23) Cerebral infarction, unspecified (07/26/23) Chest pain, unspecified (07/26/23) Personal history of transient ischemic attack (TIA), and cerebral infarction without residual deficits (07/26/23) Objective Data Objective Data Vital Signs: Vital Signs Temp Pulse Resp BP Pulse Ox O2 Del Method O2 Flow Rate 97.9 F 70 18 144/70 H 95 Room Air 2 07/27/23 04:30 07/27/23 04:30 07/27/23 04:30 07/27/23 04:30 07/27/23 04:30 07/27/23 08:28 07/26/23 22:30 Oxygen Flow Rate (L/min) 2 Oxygen Delivery Method Room Air Weight: 188 lb 7.924 oz Body Mass Index (BMI) 32.3 Intake & Output: Intake and Output for Last 24 Hours 07/25/23 07/26/23 07/27/23 23:59 23:59 23:59 Intake Total 1078.67 / 1078.67 Output Total 3050 / 3050 400 / 400 Balance -1971.33 / -1971.33 -400 / -400 Lab / Micro Data 07/26/23 06:00 07/26/23 06:00 Labs: Laboratory Results - last 24 hr 07/26/23 12:41: Troponin I High Sens 78886 H* 07/26/23 13:01: Troponin I High Sens > 29509 H* Rhythm Strip Rhythm Strip: Sinus Rhythm Rate: 72 Physical Exam Narrative The patient admitted from acute rehab for chest pain. Cardiac cath shows normal coronary arteries. Patient complain of mild left leg weakness although improving on rehab. Patient wants to see orthopedic surgeon Dr. Darin Delacruz as an outpatient as she has seen him before. Denies chest pain. Physical exam General: Alert, Oriented x3, Cooperative HEENT: Atraumatic, PERRLA, EOMI, Normocephalic Oral: No Gingival or Mucosal Lesions/ Ulcerations Neck: Supple, No JVD, Negative Carotid Bruits Chest wall/Lungs: Air entry diminished in bilateral lung bases. No crepitation/rhonchi Cardiovascular: Regular rate, Regular Rhythm, Normal S1, Normal S2, No M/G/R Abdomen: Bowel Sounds Present, Soft, Non Tender, Non-Distended : No dysuria. No renal angle tenderness. No suprapubic tenderness. Extremities: No edema, Capillary Refill Less than 3 Seconds Skin: No rashes, No breakdown Musculoskeletal: No Tenderness to Palpation of Joints or Extremities. Mild left knee weakness, 4+/5. Rest hip joints, knee joint and ankle joints are 5/5. No upper extremity weakness. Neurological: Cranial nerves II-XII grossly intact, DTR 2+/4. No acute focal neurological deficit. Psych/Mental Status: Flat affect Assessment & Plan Assessment/Plan (1) Takotsubo cardiomyopathy: (2) Chest pain: QUALIFIERS: Chest pain type: unspecified Qualified Code(s): R07.9 - Chest pain, unspecified (3) Uncontrolled depression: (4) History of right MCA stroke: PLAN: Plan Takotsubo Cardiomyopathy with no flow-limiting ischemia on emergent LHC EF on [facility] was 20-25%. 2D echo was done which shows EF 45%, apical akinesis, mild anteroseptal severely hypokinetic. Lateral apex akinesis. Mild TR. Normal mitral valve and aortic valve. Cardiology switching metoprolol to carvedilol 12.5 mg twice daily. Also starting losartan 50 mg twice daily. He did not feel diuresis was indicated at this time. Patient follow-up with cardiology as outpatient. Depression likely situational given recent events. continue vilazodone, mirtazapine. Patient on the lassoed on 10 mg daily, dose updated. follow up with psychiatry/counseling as outpt. Recent history of CVA; diagnosed on June 23, 2023 with patient falling in her bathroom striking her head around 6:00 AM and then having a severe Right-sided headache with Left-sided weakness with CTA head positive Acute Right MCA Occlusion for which she was then treated with TNK and unfortunately then developed a SAH; residual Left hemiparesis In inpatient rehab since on July 07, 2023 PT OT Hopefully she will be able to return to rehabilitation soon. Recent Proteus mirabilis UTI: Patient urine culture on 07/24 shows Proteus mirabilis more than thousand colonies, pansensitive except nitrofurantoin. Patient is allergic to penicillin and was treated for 2 days of Levaquin in rehab before admission. Discussed with the rehab physician, my colleague, Dr. Dilma Chacon and Levaquin 500 milligram daily for 3 more days ordered. Patient denies dysuria. Chronic conditions: Essential hypertension - Continue current regimen plus give prn IV Hydralazine for systolic blood pressure > 160 mm Hg. Obesity; with a BMI of 32.7 this admission - Weight loss will be recommended. Glaucoma - Resume eye drops s previous. OA - Stable. Give Tylenol prn. Osteoporosis - Continue Alendronate as an outpatient. History of breast cancer; s/p Right mastectomy (2014) after lumpectomy (1991) GERD; with history of gastric ulcer DVT prophylaxis - SCDs Disposition to either acute rehab or SNF discussed with the rn case manager. This needs to be further determined. 2D echo 07/27/2023 Interpretation Summary Moderate segmental systolic dysfunction (see wall motion). The left ventricular ejection fraction is 45 %. Wall motion abnormality noted above consistent with Takotsubo cardiomyopathy. Contrast injection was performed. Charges/Coding Visit Charges Inpatient E&M: 04812 Subs Hosp L2
--- NOTE | 2023-07-27 08:57 | PCM.PN.CARD ---
Subjective Subjective Patient seen and evaluated. Appears to be doing well. Sleeping soundly. According to nurses did not have any issues overnight. Objective Data Vital Signs: Vital Signs Temp Pulse Resp BP Pulse Ox O2 Del Method O2 Flow Rate 97.9 F 70 18 144/70 H 95 Room Air 2 07/27/23 04:30 07/27/23 04:30 07/27/23 04:30 07/27/23 04:30 07/27/23 04:30 07/27/23 08:28 07/26/23 22:30 Oxygen Flow Rate (L/min) 2 Oxygen Delivery Method Room Air Weight: 188 lb 7.924 oz Body Mass Index (BMI) 32.3 Intake & Output: Intake and Output for Last 24 Hours 07/25/23 07/26/23 07/27/23 23:59 23:59 23:59 Intake Total 1078.67 / 1078.67 Output Total 3050 / 3050 400 / 400 Balance -1971.33 / -1971.33 -400 / -400 Lab / Micro Data 07/26/23 06:00 07/26/23 06:00 Labs: Laboratory Results - last 24 hr 07/26/23 12:41: Troponin I High Sens 70121 H* 07/26/23 13:01: Troponin I High Sens > 95539 H* Rhythm Strip Rhythm Strip: Sinus Rhythm Rate: 72 Cardiology Labs/Tests Rhythm: EKG: ECHO: Stress Test: Cardiac Cath: PCI: CT Surgery: Holter monitor: EPS: PPM: CXR: Chest CT Scan: Physical Exam Const alert, oriented x3 and no apparent distress General Appearance: cooperative HEENT hearing grossly normal bilaterally Head and Scalp: atraumatic Eyes EOMs intact bilaterally Neck General: normal visual inspection Chest inspection of chest normal and palpation of chest normal Resp normal respiratory effort Auscultation: clear to auscultation bilaterally Cardio regular rate, regular rhythm, S1 normal heart sound and S2 normal heart sound Jugular Venous Distention: JVD GI normal to inspection, nondistended, normoactive bowel sounds Extremity normal capillary refill and no pedal edema Peripheral Pulses: Yes pulses 2+ throughout and femoral pulses present Skin no rashes or lesions noted Neuro oriented x3 and CN's II-XII intact bilaterally Psych Appearance: grossly normal and appropriate Assessment & Plan Assessment/Plan (1) Takotsubo syndrome: PLAN: The patient presented with an EKG was diffuse ST segment elevation in the anterior lateral leads. Was taken emergently to the [facility] where mild to moderate coronary artery disease was documented and this was diagnosed as Takotsubo syndrome. She did have an intense stressful situation related to her CVA and subsequent rehab. Plan will be to continue patient's carvedilol Continue losartan which she is tolerating well Outpatient echocardiogram in 6 weeks. (2) Subarachnoid hemorrhage: PLAN: The patient developed a subarachnoid hemorrhage after she received TNK for her middle cerebral artery occlusion. There is also a question of her falling and hitting her head although she denies this. The fact that she has a subarachnoid hemorrhage complicates further treatment of her cardiovascular status as well as oral anticoagulation for possible embolic origin of her stroke. The patient does have an event monitor that is supplied by [facility] that she is to return July 2018. The family is going to call tomorrow morning to obtain records to see if there is been any atrial fibrillation documented. (3) Ischemic cerebrovascular accident (CVA): PLAN: This was treated with TNK complicated by subarachnoid hemorrhage and subsequent transfer to [facility] she is now in inpatient rehab and progressing with recovery of her left-sided deficits. (4) Hyperlipidemia: QUALIFIERS: Hyperlipidemia type: mixed hyperlipidemia Qualified Code(s): E78.2 - Mixed hyperlipidemia PLAN: The patient reports her lipids have been well-controlled on atorvastatin. (5) HTN (hypertension): QUALIFIERS: Hypertension type: primary hypertension Qualified Code(s): I10 - Essential (primary) hypertension PLAN: Plan 1. The patient's blood pressure has been intermittently elevated on this admission to the acute care setting. We will address this by titrating her medical regiment to treat her for LV recovery. 2. Coreg will replace metoprolol. We will add losartan 50 mg twice daily with a hold for systolic less than 100. 3. 2D echocardiogram in 6 weeks. 4. Follow-up with the [place] [facility] in the next 2 weeks. 5. Obtain final determination from the event recorder placed by [facility] neurology department. 6. Obtain an opinion from neurology on the possibility of needing to add oral anticoagulation therapy and what they would recommend. This can be done with the [facility] neurology group. Stable from the cardiovascular standpoint for follow-up in a non-PCU setting.
[2023-07-27 10:21] VITALS: BP 139/70; PULSE 80; RESP 16; TEMP 36.4; O2SAT 97
[2023-07-27] MEDS: Meloxicam 7.5 MG Tablet PO ×2 (10:27→19:47)
[2023-07-27] MEDS: Carvedilol 12.5 MG Tablet PO ×2 (10:27→19:47)
[2023-07-27] MEDS: Calcium Carb/Vitamin D 1 TABLET Tablet PO (10:27)
[2023-07-27] MEDS: Losartan Potassium 50 MG Tablet PO ×2 (10:27→19:47)
[2023-07-27] MEDS: Acetaminophen 325 MG Tablet 650 MG PO (10:27)
[2023-07-27] MEDS: VILAZODONE HYDROCHLORIDE 10 MG TABLET 40 MG PO (10:27)
[2023-07-27] MEDS: Pantoprazole Sodium 20 MG Tablet PO (10:27)
--- NOTE | 2023-07-27 10:41 | CASEMGMT ---
Patient is from Acute Rehab. Patient's plan was to transition to a SNF from Rehab this week. SW met with patient. Introduced self and role at [facility]. Patient did not have a clear answer as to what her plan is from [facility]. SW will double check with patient's as to what the plan is for d/c. Myah TUBBS
--- NOTE | 2023-07-27 11:04 | CASEMGMT ---
Addendum entered by Ofelia Quarles 07/27/23 13:41: [facility] declined d/t no bed availability. Referral sent via [facility] to [facility]. Ofelia Quarles, Discharge Planning Asst. Original Note: Discharge Planning Referral sent to [facility] via [facility]. Ofelia Quarles, Discharge Planning Asst.
[2023-07-27] MEDS: levoFLOXacin 500 MG Tablet PO (13:27)
[2023-07-27 17:45] VITALS: BP 119/54; PULSE 78; RESP 18; TEMP 36.8; O2SAT 97
[2023-07-27] MEDS: Latanoprost 0.005% 1 Bottle 1 DRP EACH EYE (19:46)
[2023-07-27] MEDS: Mirtazapine 30 MG Tablet PO (19:47)
[2023-07-27 21:17] VITALS: BP 145/66; PULSE 73; RESP 16; TEMP 36.9; O2SAT 99
[2023-07-27 21:21] VITALS: BP 145/66; PULSE 73; RESP 16; TEMP 36.9; O2SAT 99
[2023-07-28] VITALS (10 sets, daily range): BP systolic 101–168; BP diastolic 53–88; PULSE 67–88; RESP 16–18; TEMP 36.3–37; O2SAT 94–100; BMI 32.2
[2023-07-28] MEDS: levoFLOXacin 500 MG Tablet PO (05:41)
--- NOTE | 2023-07-28 07:53 | CASEMGMT ---
[facility] KAROLINE spoke with Ebony in Rehab and they were planning on patient returning to them pending insurance approval. Patient was not going to be discharged this week her next review date was this week. Pre-cert has been started for Acute Rehab. Myah Mueller MSW SULY
[2023-07-28] MEDS: Losartan Potassium 50 MG Tablet PO (09:40)
[2023-07-28] MEDS: Acetaminophen 325 MG Tablet 650 MG PO (09:40)
[2023-07-28] MEDS: Pantoprazole Sodium 20 MG Tablet PO (09:40)
[2023-07-28] MEDS: VILAZODONE HYDROCHLORIDE 10 MG TABLET PO (09:40)
[2023-07-28] MEDS: Carvedilol 12.5 MG Tablet PO (09:40)
[2023-07-28] MEDS: Meloxicam 7.5 MG Tablet PO ×2 (09:41→19:45)
[2023-07-28] MEDS: Calcium Carb/Vitamin D 1 TABLET Tablet PO (09:41)
--- NOTE | 2023-07-28 12:51 | CT_ITS ---
EXAM: CT HEAD WITHOUT INTRAVENOUS CONTRAST CLINICAL INDICATION: Neuro deficit. TECHNIQUE: Multiple axial images were obtained of the head without intravenous contrast. This CT exam was performed using one or more of the following dose reduction techniques: automated exposure control, adjustment of the mA and/or kV according to patient size, and/or use of iterative reconstruction technique. RADIATION DOSE: CTDIvol = 44.99 mGy, DLP = 846.73 mGy-cm COMPARISON: CT head without contrast and CTA head and neck with contrast 06/23/2023. FINDINGS: BRAIN AND EXTRA-AXIAL SPACES: Now obvious increased cerebral edema along the cortical gyri along the right superior temporal gyrus, the posterior right middle temporal gyrus, right supramarginal gyrus, right angular gyrus and right lateral occipital gyrus. This cortical-based ischemic infarction corresponds to the occluded M2 segment of the right middle cerebral artery seen on CTA head. There is some linear hyperintensity in the cerebral sulci of the right posterior temporal lobe which may be MCA thrombosis but cannot entirely exclude early hemorrhagic transformation. Hypodensity in the white matter of both cerebral hemispheres are chronic white matter ischemic changes and unchanged. No intracranial mass or mass effect. Posterior fossa structures are unremarkable. Ventricles are appropriate for age. No hydrocephalus. Basal cisterns are patent. BONES/JOINTS: Unremarkable. No discrete lytic or blastic abnormalities. SINUSES: Unremarkable as visualized. Clear. MASTOID AIR CELLS: Unremarkable. Clear. ORBITS: Visualized globes, extraocular muscles, optic nerves and retrobulbar fat appear unremarkable. CT/STROKE Brain/Head without Cont IMPRESSION: 1. Now obvious acute cortical-based ischemic infarction due to increased cerebral edema along the right superior temporal gyrus, the posterior right middle temporal gyrus, right supramarginal gyrus, right angular gyrus and right lateral occipital gyrus. There is effacement of the overlying cerebral sulci due to cerebral edema and the hyperdensity of some of the cerebral sulci possibly due to hyperdense thrombosis of the middle cerebral artery branches but early hemorrhagic transformation of ischemic infarction cannot be entirely excluded. MRI with SWI sequence will help clarify. 2. Chronic white matter ischemic changes in both cerebral hemispheres are unchanged. N.B. : The above Results were Read Back by Elan Tee MD to Wayne Bradley MD, and understanding confirmed on 07/28/2023 13:13:47 (ET). Electronically Signed: Elan Tee MD at 13:20 EST ,
--- NOTE | 2023-07-28 13:21 | EKG12_ITS ---
Test Reason : Blood Pressure : / mmHG Vent. Rate : 073 BPM Atrial Rate : 073 BPM P-R Int : 198 ms QRS Dur : 068 ms QT Int : 386 ms P-R-T Axes : 029 -28 042 degrees QTc Int : 425 ms Normal sinus rhythm Low voltage QRS Inferior infarct , age undetermined Confirmed by TRACY DUBOSE, DERIC ([id number]), digital editor MUNA SHAIKH ([id number]) on 07/29/2023 9:13:28 AM Referred By: MELISSA Confirmed By:DERIC MOLINA MD
--- NOTE | 2023-07-28 13:23 | MRI_ITS ---
EXAM: MR HEAD WITHOUT INTRAVENOUS CONTRAST CLINICAL INDICATION: suspected stroke TECHNIQUE: Multiplanar and multisequence MR images of the brain were obtained without intravenous contrast. COMPARISON: MRI brain with and without contrast 07/20/2020. FINDINGS: BRAIN AND EXTRA-AXIAL SPACES: Abnormal T2 FLAIR hyperintensity foci along the cortical gyri of the right superior temporal gyrus, the posterior right middle temporal gyrus, right supramarginal gyrus, right angular gyrus and right lateral occipital gyrus. These have areas of curvilinear diffusion restrictions confirmed on ADC map. There are also increased T1 hyperintensity along the cortices of this ischemic infarction suggesting early cortical laminar necrosis. No increase magnetic susceptibility foci to suspect intracranial bleeding or hemorrhagic transformation of ischemic infarct. T2 FLAIR hyperintensity foci in the white matter of both cerebral hemispheres are chronic white matter ischemic changes. No intracranial mass or mass effect. Posterior fossa structures are unremarkable. Ventricles are appropriate for age. No hydrocephalus. Basal cisterns are patent. SELLA: Unremarkable. Normal sella turcica, pituitary gland, infundibular stalk, optic chiasm and hypothalamus. AUDITORY SYSTEM: Unremarkable. The internal auditory canals are patent. BONES/JOINTS: Unremarkable. No discrete lytic or blastic abnormalities. SINUSES: Unremarkable as visualized. Clear. MASTOID AIR CELLS: Unremarkable as visualized. Clear. ORBITS: Unremarkable as visualized. Both globes, extraocular muscles, optic nerves and retrobulbar fat appear unremarkable. VASCULATURE: Unremarkable as visualized. Normal flow voids in the major intracranial circulation. MRI/Brain without Contrast IMPRESSION: 1. Subacute cortical based ischemic infarction with early cortical laminar necrosis and without hemorrhagic transformation ischemic infarct along the right superior temporal gyrus, the posterior right medial temporal gyrus, right supramarginal gyrus, right angular gyrus and right lateral occipital gyrus. These are new findings when compared to MRI brain of 07/20/2020. 2. Chronic white matter ischemic changes in both cerebral hemispheres are unchanged. Electronically Signed: Elan Tee MD at 15:36 EST ,
[2023-07-28 13:46] LABS: Absolute Lymphocyte Count 1.22 X10^3/uL (0.83-4.51); Absolute Neutrophil Count 8.3 X10^3/uL (2.0-7.7); Basophil# 0.12 X10^3/uL; Basophil% 1.1 % (0-1); Eosinophil# 0.74 X10^3/uL; Eosinophils% 6.5 % (0-5); Hematocrit 35.7 % (37-47); Hemoglobin 11.6 g/dL (12.0-15.0); Lymphocyte # 1.22 X10^3/ul (0.83-4.51); Lymphocyte % 10.8 % (19-41); Mean Corp Hgb Conc 32.5 g/dL (32-36); Mean Corpuscular Hgb 31.2 pg (27.0-32.0); Mean Platelet Vol. 11.2 fl (6.2-12.0); Monocyte# 0.88 X10^3/uL; Monocyte% 7.8 % (0-10); NRBC Flagged by Analyzer 0 % (0-5); Neutrophil # 8.31 X10^3/uL (2.7-7.7); Neutrophil % 73.4 % (47-70); Platelet Count 319 K/mm3 (150-450); RBC Distribution Width CV 14.5 % (11.6-14.6); RBC Distribution Width SD 51.2 fl (35.1-43.9); Red Blood Count 3.72 M/mm3 (4.2-5.4); White Blood Count 11.3 K/mm3 (4.4-11.0)
--- NOTE | 2023-07-28 13:48 | PCM.HOSP.N ---
Hospitalist Note Stroke alert was called. Patient complained that her left-sided visual field is worse but later on she said it is same. Patient was taken to the CT scan. Patient denies any new weakness in hand or leg. She also felt mild chest tightness. On exam, left-sided visual deficit same as before which does not show increased. Muscle strength is same as before. Patient cannot tell the month and her age correctly. NIH stroke scale was done. [facility] neurologist was consulted and felt like left visual deficit from a right MCA stroke is same as before of previous stroke of June 23, about a month ago. At that time patient had received tenecteplase. CT head which shows and [facility] radiologist called me that patient has obvious acute cortical-based ischemic infarction due to increased cerebral edema along the right superior temporal gyrus, posterior right middle temporal gyrus, right side primarily gyrus, right angular gyrus and right collaterals occipital gyrus, effacement of overlying cerebral sulci from hypertensive thrombosis of MCA branch. Clinical it seems from the previous infarct of June 23, 2023 and that was the [facility] neurologist impression too MRI brain with DWI sequences ordered. No acute need for CTA head and neck but will be decided after MRI brain.
[2023-07-28 14:06] LABS: Phosphorus 2.4 mg/dL (2.5-4.9)
[2023-07-28 14:08] LABS: ALB/GLOB Ratio 0.8 RATIO (0.9-2.4); AST(SGOT) 88 U/L (15-37); Alanine Aminotransfer ALT/SGPT 32 U/L (13-56); Albumin, Serum 2.7 g/dL (3.2-5.0); Alkaline Phosphatase 94 U/L (45-117); Anion Gap 8 (5-15); BUN 18 mg/dL (7-18); BUN/Creat Ratio 12.5 RATIO (10-20); Calcium,Total 9.8 mg/dL (8.5-10.1); Chloride 109 mmol/L (98-107); Creatinine, Serum 1.44 mg/dL (0.55-1.02); EST Glomerular Filtration Rate 38 mL/min (>60); Est Glom Filt Rate - Afr Amer 46 mL/min (>60); Globulin 3.5 g/dL (2.2-4.2); Glucose 124 mg/dL (74-106); Protein, Total 6.2 g/dL (6.4-8.2); Sodium Level 141 mmol/L (136-145); Troponin-I HS 19978 pg/mL (3.0-54.0)
--- NOTE | 2023-07-28 14:10 | PN.HOSP_ITS ---
Reason for Visit Reason for Visit: Diagnoses Mixed hyperlipidemia (07/26/23) Depression, unspecified (07/26/23) Essential (primary) hypertension (07/26/23) Takotsubo syndrome (07/26/23) Nontraumatic subarachnoid hemorrhage, unspecified (07/26/23) Cerebral infarction, unspecified (07/26/23) Chest pain, unspecified (07/26/23) Personal history of transient ischemic attack (TIA), and cerebral infarction without residual deficits (07/26/23) Objective Data Objective Data Vital Signs: Vital Signs Temp Pulse Resp BP Pulse Ox O2 Del Method O2 Flow Rate 97.4 F L 74 16 118/88 H 94 Room Air 2 07/28/23 14:00 07/28/23 14:00 07/28/23 14:00 07/28/23 14:00 07/28/23 14:00 07/28/23 14:00 07/26/23 22:30 Oxygen Flow Rate (L/min) 2 Oxygen Delivery Method Room Air Weight: 187 lb 13.341 oz Body Mass Index (BMI) 32.2 Intake & Output: Intake and Output for Last 24 Hours 07/26/23 07/27/23 07/28/23 23:59 23:59 23:59 Intake Total 1078.67 / 1078.67 1680 / 1920 480 / 480 Output Total 3050 / 3050 775 / 1175 700 / 700 Balance -1971.33 / -1971.33 905 / 745 -220 / -220 Lab / Micro Data 07/28/23 13:35 07/28/23 13:35 Labs: Laboratory Results - last 24 hr 07/28/23 13:35: WBC 11.3 H, RBC 3.72 L, Hgb 11.6 L, Hct 35.7 L, MCV 96.0, MCH 31.2, MCHC 32.5, RDW Std Deviation 51.2 H, RDW Coeff of [place] 14.5, Plt Count 319, MPV 11.2, Immature Gran % (Auto) 0.400, Neut % (Auto) 73.4 H, Lymph % (Auto) 10.8 L, Colbert % (Auto) 7.8, Eos % (Auto) 6.5 H, Baso % (Auto) 1.1 H, Absolute Neuts (auto) 8.3 H, Absolute Lymphs (auto) 1.22, Nucleated RBC % 0, Sodium 141, Potassium 4.0, Chloride 109 H, Carbon Dioxide 24.0, Anion Gap 8, BUN 18, Creatinine 1.44 H, Estim Creat Clear Calc 36.20, Est GFR (MDRD) Af Amer 46 L, Est GFR (MDRD) Non-Af 38 L, BUN/Creatinine Ratio 12.5, Glucose 124 H, Calcium 9.8, Phosphorus 2.4 L, Magnesium 2.0, Total Bilirubin 0.60, AST 88 H, ALT 32, Alkaline Phosphatase 94, Troponin I High Sens 05130 H*, Total Protein 6.2 L, Albumin 2.7 L, Globulin 3.5, Albumin/Globulin Ratio 0.8 L Radiography Diagnostic Testing: Radiology Impression Brain CT 07/28/23 12:51 IMPRESSION: 1. Now obvious acute cortical-based ischemic infarction due to increased cerebral edema along the right superior temporal gyrus, the posterior right middle temporal gyrus, right supramarginal gyrus, right angular gyrus and right lateral occipital gyrus. There is effacement of the overlying cerebral sulci due to cerebral edema and the hyperdensity of some of the cerebral sulci possibly due to hyperdense thrombosis of the middle cerebral artery branches but early hemorrhagic transformation of ischemic infarction cannot be entirely excluded. MRI with SWI sequence will help clarify. 2. Chronic white matter ischemic changes in both cerebral hemispheres are unchanged. N.B. : The above Results were Read Back by Elan Tee MD to Wayne Bradley MD, and understanding confirmed on 07/28/2023 13:13:47 (ET). Electronically Signed: Elan Tee MD at 13:20 EST , ADDENDUM: 07/28/23 [id number] IMPRESSION: 1. Now obvious acute cortical-based ischemic infarction due to increased cerebral edema along the right superior temporal gyrus, the posterior right middle temporal gyrus, right supramarginal gyrus, right angular gyrus and right lateral occipital gyrus. There is effacement of the overlying cerebral sulci due to cerebral edema and the hyperdensity of some of the cerebral sulci possibly due to hyperdense thrombosis of the middle cerebral artery branches but early hemorrhagic transformation of ischemic infarction cannot be entirely excluded. MRI with SWI sequence will help clarify. 2. Chronic white matter ischemic changes in both cerebral hemispheres are unchanged. N.B. : The above Results were Read Back by Elan Tee MD to Wayne Bradley MD, and understanding confirmed on 07/28/2023 13:13:47 (ET). Electronically Signed: Elan Tee MD at 13:20 EST , Rhythm Strip Rhythm Strip: Sinus Rhythm Rate: 72 Physical Exam Narrative Patient had a stroke alert called when she was found confused and then unresponsive episode, left leg weakness and facial droop on left side. She states her vision was worse than before. Please see separate note for stroke alert. Patient complain of mild left leg weakness yesterday although improving on rehab. Patient wants to see orthopedic surgeon Dr. Delacruz as an outpatient as she has seen him before. Denies chest pain. Physical exam General: Alert, Oriented x3, Cooperative HEENT: Atraumatic, PERRLA, EOMI, Normocephalic. Left-sided visual deficit from a stroke Oral: No Gingival or Mucosal Lesions/ Ulcerations Neck: Supple, No JVD, Negative Carotid Bruits Chest wall/Lungs: Air entry diminished in bilateral lung bases. No crepitation/rhonchi Cardiovascular: Regular rate, Regular Rhythm, Normal S1, Normal S2, No M/G/R Abdomen: Bowel Sounds Present, Soft, Non Tender, Non-Distended : No dysuria. No renal angle tenderness. No suprapubic tenderness. Extremities: No edema, Capillary Refill Less than 3 Seconds Skin: No rashes, No breakdown Musculoskeletal: No Tenderness to Palpation of Joints or Extremities. Mild left knee weakness, 4+/5. Rest hip joints, knee joint and ankle joints are 5/5. No upper extremity weakness. Neurological: Cranial nerves II-XII grossly intact, DTR 2+/4. No acute focal neurological deficit. Psych/Mental Status: Flat affect Assessment & Plan Assessment/Plan (1) Takotsubo cardiomyopathy: (2) Chest pain: QUALIFIERS: Chest pain type: unspecified Qualified Code(s): R07.9 - Chest pain, unspecified (3) Uncontrolled depression: (4) History of right MCA stroke: PLAN: Plan Takotsubo Cardiomyopathy * with no flow-limiting ischemia on emergent LHC * EF on LHC was 20-25%. * 2D echo was done which shows EF 45%, apical akinesis, mild anteroseptal severely hypokinetic. Lateral apex akinesis. Mild TR. Normal mitral valve and aortic valve. * Cardiology switching metoprolol to carvedilol 12.5 mg twice daily. Also starting losartan 50 mg twice daily. He did not feel diuresis was indicated at this time. * Patient follow-up with cardiology as outpatient. Stroke alert on 07/28/2023: Please see separate note for stroke alert. [facility] teleneurology consult reviewed. Patient complained that her visual field seemed worse but she is not very clear. MRI brain ordered. CT brain individually reviewed and discussed with the [facility] radiology. It shows right inferior division MCA ischemic infarct. Further management depends on the MRI brain. Possible differential may be syncopal episode. Patient also complained of chest tightness therefore twelve-lead EKG and troponin ordered. Troponin shows decreased, 19,978 from the previous more than 25,000. KELSI with hypophosphatemia: Repeat labs shows hypophosphatemia, phosphorus 2.4. Creatinine increased from 0.83-1.44. Patient did not had IV contrast today. IV fluid normal saline ordered. Depression * likely situational given recent events. * continue vilazodone, mirtazapine. Patient on the lassoed on 10 mg daily, dose updated. * follow up with psychiatry/counseling as outpt. Recent history of CVA; * diagnosed on June 23, 2023 with patient falling in her bathroom striking her head around 6:00 AM and then having a severe Right-sided headache with Left-sided weakness with CTA head positive Acute Right MCA Occlusion for which she was then treated with TNK and unfortunately then developed a SAH; * residual Left hemiparesis * In inpatient rehab since on July 07, 2023 * PT OT * Hopefully she will be able to return to rehabilitation soon. Recent Proteus mirabilis UTI: Patient urine culture on 07/24 shows Proteus mirabilis more than thousand colonies, pansensitive except nitrofurantoin. Patient is allergic to penicillin and was treated for 2 days of Levaquin in rehab before admission. Discussed with the rehab physician, my colleague, Dr. Dilma Chacon and Levaquin 500 milligram daily for 3 more days ordered. Patient denies dysuria. Chronic conditions: * Essential hypertension - Continue current regimen plus give prn IV Hydralazine for systolic blood pressure > 160 mm Hg. * Obesity; with a BMI of 32.7 this admission - Weight loss will be recommended. * Glaucoma - Resume eye drops s previous. * OA - Stable. Give Tylenol prn. * Osteoporosis - Continue Alendronate as an outpatient. * History of breast cancer; s/p Right mastectomy (2014) after lumpectomy (1991) * GERD; with history of gastric ulcer DVT prophylaxis - SCDs Disposition to either acute rehab or SNF discussed with the manager case. This needs to be further determined. 2D echo 07/27/2023 Interpretation Summary Moderate segmental systolic dysfunction (see wall motion). The left ventricular ejection fraction is 45 %. Wall motion abnormality noted above consistent with Takotsubo cardiomyopathy. Contrast injection was performed. Charges/Coding Addendum Addendum: Total time of the visit including total time spent in counseling or coordination of care, (more than 50% of the total time, spent in obtaining medical information from nurses and other ancillary care providers,explaining to the patient about labs, imaging, diagnosis and management of active complex medical conditions), during stroke alert, discussion with [facility] radiologist and [facility] teleneurologist, review of labs and imaging is 50 minutes. Visit Charges Inpatient E&M: 64232 [facility] L3
--- NOTE | 2023-07-28 15:21 | CHAPLAIN ---
Type of Pastoral Visit ___ Initial Visit ___ Follow-up Visit ___ On-call Visit ___ General Patient Visit ___ Spiritual Assessment ___ Family Conference ___ Bereavement _x__ Rapid Response ___ Code Blue ___ Other (describe below) Pastoral Care Referral From ___ Patient ___ Family ___ Nurse ___ Physician ___ Portainer Operator ___ Chisel Trimmer _x__ Other (describe below) Sacrament/Intervention _x__ Active listening ___ Anointing ___ Spiritism ___ Bereavement ___ Communion ___ Marielos exploration ___ ___ Life review ___ Prayer ___ Reconciliation ___ Sacrament of Sick _x__ Supportive presence ___ Wedding ___ Other (describe below) Pastoral Comments responded to stroke alert in PCU for this patient; spouse and daughter are with her and standing in the hallway; offer of presence, assistance, and support to family members as patient was being taken to CT for a scan; family will wait in the room until testing is done; assurance of good care and prompt attention is given to the family
[2023-07-28] MEDS: 0.9% Normal Saline (1000mL) 1,000 ML 75 ML IV (15:35)
[2023-07-28] MEDS: 0.9% Saline Lock 10 ML Syringe IV (15:37)
[2023-07-28] MEDS: Latanoprost 0.005% 1 Bottle 1 DRP EACH EYE (19:45)
[2023-07-28] MEDS: Mirtazapine 30 MG Tablet PO (19:45)
[2023-07-28] MEDS: Atorvastatin Calcium 40 MG Tablet PO (19:45)
[2023-07-29 02:36] VITALS: BMI 32.3
[2023-07-29 04:00] VITALS: BP 155/71; PULSE 77; RESP 18; TEMP 36.9; O2SAT 99
[2023-07-29] MEDS: levoFLOXacin 500 MG Tablet PO (04:54)
[2023-07-29 07:55] VITALS: BP 166/66; PULSE 81; RESP 16; TEMP 36.6; O2SAT 94
[2023-07-29 08:04] LABS: Bedside Glucose 124 mg/dL (74-106)
--- NOTE | 2023-07-29 09:36 | PN.HOSP_ITS ---
Reason for Visit Reason for Visit: Diagnoses Mixed hyperlipidemia (07/26/23) Depression, unspecified (07/26/23) Essential (primary) hypertension (07/26/23) Takotsubo syndrome (07/26/23) Nontraumatic subarachnoid hemorrhage, unspecified (07/26/23) Cerebral infarction, unspecified (07/26/23) Chest pain, unspecified (07/26/23) Personal history of transient ischemic attack (TIA), and cerebral infarction without residual deficits (07/26/23) Objective Data Objective Data Vital Signs: Vital Signs Temp Pulse Resp BP Pulse Ox O2 Del Method O2 Flow Rate 97.9 F 81 16 166/66 H 94 Room Air 2 07/29/23 07:55 07/29/23 07:55 07/29/23 07:55 07/29/23 07:55 07/29/23 07:55 07/29/23 08:11 07/26/23 22:30 Oxygen Flow Rate (L/min) 2 Oxygen Delivery Method Room Air Weight: 188 lb 4.396 oz Body Mass Index (BMI) 32.3 Intake & Output: Intake and Output for Last 24 Hours 07/27/23 07/28/23 07/29/23 23:59 23:59 23:59 Intake Total 1680 / 1920 960 / 1200 1480 / 1480 Output Total 775 / 1175 1550 / 1850 700 / 700 Balance 905 / 745 -590 / -650 780 / 780 Lab / Micro Data 07/28/23 13:35 07/28/23 13:35 Labs: Laboratory Results - last 24 hr 07/28/23 12:39: POC Glucose 124 H 07/28/23 13:35: WBC 11.3 H, RBC 3.72 L, Hgb 11.6 L, Hct 35.7 L, MCV 96.0, MCH 31.2, MCHC 32.5, RDW Std Deviation 51.2 H, RDW Coeff of Kenisha 14.5, Plt Count 319, MPV 11.2, Immature Gran % (Auto) 0.400, Neut % (Auto) 73.4 H, Lymph % (Auto) 10.8 L, [place] % (Auto) 7.8, Eos % (Auto) 6.5 H, Baso % (Auto) 1.1 H, Absolute Neuts (auto) 8.3 H, Absolute Lymphs (auto) 1.22, Nucleated RBC % 0, Sodium 141, Potassium 4.0, Chloride 109 H, Carbon Dioxide 24.0, Anion Gap 8, BUN 18, Creatinine 1.44 H, Estim Creat Clear Calc 36.20, Est GFR (MDRD) Af Amer 46 L, Est GFR (MDRD) Non-Af 38 L, BUN/Creatinine Ratio 12.5, Glucose 124 H, Calcium 9.8, Phosphorus 2.4 L, Magnesium 2.0, Total Bilirubin 0.60, AST 88 H, ALT 32, Alkaline Phosphatase 94, Troponin I High Sens 44967 H*, Total Protein 6.2 L, Albumin 2.7 L, Globulin 3.5, Albumin/Globulin Ratio 0.8 L Radiography Diagnostic Testing: Radiology Impression Brain CT 07/28/23 12:51 IMPRESSION: 1. Now obvious acute cortical-based ischemic infarction due to increased cerebral edema along the right superior temporal gyrus, the posterior right middle temporal gyrus, right supramarginal gyrus, right angular gyrus and right lateral occipital gyrus. There is effacement of the overlying cerebral sulci due to cerebral edema and the hyperdensity of some of the cerebral sulci possibly due to hyperdense thrombosis of the middle cerebral artery branches but early hemorrhagic transformation of ischemic infarction cannot be entirely excluded. MRI with SWI sequence will help clarify. 2. Chronic white matter ischemic changes in both cerebral hemispheres are unchanged. Brain MRI 07/28/23 13:23 IMPRESSION: 1. Subacute cortical based ischemic infarction with early cortical laminar necrosis and without hemorrhagic transformation ischemic infarct along the right superior temporal gyrus, the posterior right medial temporal gyrus, right supramarginal gyrus, right angular gyrus and right lateral occipital gyrus. These are new findings when compared to MRI brain of 07/20/2020. 2. Chronic white matter ischemic changes in both cerebral hemispheres are unchanged. Rhythm Strip Rhythm Strip: Sinus Rhythm Rate: 72 Physical Exam Narrative Noonish time she had word finding difficulty states he knows how how and what to speak but could not get the words out. No change in vision. Patient complain of mild left leg weakness yesterday although improving on rehab. Patient wants to see orthopedic surgeon Dr. Delacruz as an outpatient as she has seen him before. Denies chest pain. Physical exam General: Alert, Oriented x3, Cooperative HEENT: Atraumatic, PERRLA, EOMI, Normocephalic. Left-sided visual deficit from a stroke. Color vision intact. Oral: No Gingival or Mucosal Lesions/ Ulcerations Neck: Supple, No JVD, Negative Carotid Bruits Chest wall/Lungs: Air entry diminished in bilateral lung bases. No crep itation/rhonchi Cardiovascular: Regular rate, Regular Rhythm, Normal S1, Normal S2, No M/G/R Abdomen: Bowel Sounds Present, Soft, Non Tender, Non-Distended : No dysuria. No renal angle tenderness. No suprapubic tenderness. Extremities: No edema, Capillary Refill Less than 3 Seconds Skin: No rashes, No breakdown Musculoskeletal: No Tenderness to Palpation of Joints or Extremities. Mild left knee weakness, 4+/5. Rest hip joints, knee joint and ankle joints are 5/5. No upper extremity weakness. Neurological: Cranial nerves II-XII grossly intact, DTR 2+/4. No aphasia/language deficit or dysarthria noted on NIH stroke scale. Psych/Mental Status: Flat affect Assessment & Plan Assessment/Plan (1) Takotsubo cardiomyopathy: (2) Chest pain: QUALIFIERS: Chest pain type: unspecified Qualified Code(s): R07.9 - Chest pain, unspecified (3) Uncontrolled depression: (4) History of right MCA stroke: PLAN: Plan Takotsubo Cardiomyopathy * with no flow-limiting ischemia on emergent LHC * EF on LHC was 20-25%. * 2D echo was done which shows EF 45%, apical akinesis, mild anteroseptal severely hypokinetic. Lateral apex akinesis. Mild TR. Normal mitral valve and aortic valve. * Cardiology switching metoprolol to carvedilol 12.5 mg twice daily. Also starting losartan 50 mg twice daily. He did not feel diuresis was indicated at this time. * Patient follow-up with cardiology as outpatient. Stroke alert on 07/28/2023: Please see separate note for stroke alert. [facility] teleneurology consult reviewed. Patient complained that her visual field seemed worse but she is not very clear. MRI brain ordered. CT brain individually reviewed and discussed with the [facility] radiology. It shows right inferior di vision MCA ischemic infarct. Further management depends on the MRI brain. Possible differential may be syncopal episode. Patient also complained of chest tightness therefore twelve-lead EKG and tr oponin ordered. Troponin shows decreased, 19,978 from the previous more than 25,000. MRI brain showed subacute cortical-based ischemic infarction with early cortical laminar necrosis and without hemorrhagic transformation. Telemetry neuro [facility] already has been following since day 1 and evaluate the patient during his stroke alert. 07/29: Patient is states that she has decreased acuity of vision/objects looks blurrier for last few days. 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 She has color vision intact, red to green and yellow. On my exam in the morning, I did not find any aphasia but the nurse said that she noticed some word finding difficulties and difficult in expression herself. Prior to that patient was evaluated by neurologist and the statement was everything seems consistent with her previous stroke in June without new issue. Recommended sales promotion officer to discover A-fib and needs 30-day monitor. Recommended aspirin and statin patient already on a statin therefore continued. Aspirin [address] milligram ordered. Patient had CT head stat which shows stable encephalomalacia similar to yesterday. Patient is started on baby aspirin as per neurologist recommendation. KELSI with hypophosphatemia: Repeat labs shows hypophosphatemia, phosphorus 2.4. Creatinine increased from 0.83-1.44. Patient did not had IV contrast today. IV fluid normal saline ordered. Depression * likely situational given recent events. * continue vilazodone, mirtazapine. Patient on the lassoed on 10 mg daily, dose updated. * follow up with psychiatry/counseling as outpt. Recent history of CVA; * diagnosed on June 23, 2023 with patient falling in her bathroom striking her head around 6:00 AM and then having a severe Right-sided headache with Lef t-sided weakness with CTA head positive Acute Right MCA Occlusion for which she was then treated with TNK and unfortunately then developed a SAH; * residual Left hemiparesis * In inpatient rehab since on July 07, 2023 * PT OT * Hopefully she will be able to return to rehabilitation soon. Recent Proteus mirabilis UTI: Patient urine culture on 07/24 shows Proteus mirabilis more than thousand colonies, pansensitive except nitrofurantoin. Patient is allergic to penicillin and was treated for 2 days of Levaquin in rehab before admission. Discussed with the rehab physician, my colleague, Dr. Dilma Chacon and Levaquin 500 milligram daily for 3 more days ordered. Patient denies dysuria. Chronic conditions: * Essential hypertension - Continue current regimen plus give prn IV Hydralazine for systolic blood pressure > 160 mm Hg. * Obesity; with a BMI of 32.7 this admission - Weight loss will be recommended. * Glaucoma - Resume eye drops s previous. * OA - Stable. Give Tylenol prn. * Osteoporosis - Continue Alendronate as an outpatient. * History of breast cancer; s/p Right mastectomy (2014) after lumpectomy (1991) * GERD; with history of gastric ulcer DVT prophylaxis - SCDs Disposition to either acute rehab or SNF discussed with the director of casework department. This needs to be further determined. 2D echo 07/27/2023 Interpretation Summary Moderate segmental systolic dysfunction (see wall motion). The left ventricular ejection fraction is 45 %. Wall motion abnormality noted above consistent with Takotsubo cardiomyopathy. Contrast injection was performed. Charges/Coding Visit Charges Inpatient E&M: 12814 Subs Hosp L3
[2023-07-29 10:49] VITALS: BP 158/85; PULSE 88
[2023-07-29] MEDS: Pantoprazole Sodium 20 MG Tablet PO (10:52)
[2023-07-29] MEDS: Calcium Carb/Vitamin D 1 TABLET Tablet PO (10:52)
[2023-07-29] MEDS: Acetaminophen 325 MG Tablet 650 MG PO (10:52)
[2023-07-29] MEDS: Meloxicam 7.5 MG Tablet PO (10:52)
[2023-07-29] MEDS: VILAZODONE HYDROCHLORIDE 10 MG TABLET PO (10:52)
[2023-07-29] MEDS: Carvedilol 12.5 MG Tablet PO (10:53)
[2023-07-29] MEDS: Losartan Potassium 50 MG Tablet PO (10:53)
--- NOTE | 2023-07-29 11:01 | CASEMGMT ---
SW did check back in with patient and her and they both agree they would like patient to go back to Inpatient Rehab at discharge. SW let them know insurance is still reviewing and once they approve patient can go back to Rehab. Plan: d/c back to Acute Rehab pending insurance approval. 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
[2023-07-29 11:55] VITALS: BP 143/65; PULSE 78; RESP 16; TEMP 36.5; O2SAT 98
--- NOTE | 2023-07-29 13:08 | CT_ITS ---
STUDY: CT BRAIN WITHOUT CONTRAST REASON FOR EXAM: Female, 72 years old. Aphasia RADIATION DOSAGE (If Supplied By Facility): CTDIvol = ( 44.99 ) mGy, DLP = ( 846.73 ) mGycm TECHNIQUE: Transaxial CT imaging of the brain was performed without administration of intravenous contrast material. Individualized dose optimization techniques were used for this CT. COMPARISON: Comparison is made with prior study dated July 28, 2023. FINDINGS: Normal soft tissue structures. Normal calvarium. Stable encephalomalacia in the right posterior temporal parietal occipital lobes. Persistent linear increased density in the inferior aspect of the posterior right temporal lobe suggestive of possible petechial bleed. This is unchanged. There is mild cerebral atrophy with widening of the extra-axial spaces and ventricular dilatation. There are areas of decreased attenuation within the white matter tracts of the supratentorial brain, consistent with microvascular disease changes. Normal basal ganglia and thalami. Normal brainstem. Normal cerebellum. There is no intracranial hemorrhage. There are no findings of an acute ischemic infarction. Normal visualized paranasal sinuses. CT/Brain/Head without Contrast IMPRESSION: Stable examination. Stable linear hyperdensity as described within the inferior aspect of the posterior right temporal lobe suggestive of possible petechial bleed. Electronically Signed: Gordo Clay MD at 13:26 EST ,
[2023-07-29] MEDS: Aspirin E.C. 81 MG Tablet PO (14:40)
[2023-07-29] MEDS: Na Biphos/Potassium Phosphate PACKET 1 PACKET PO (14:40)
[2023-07-29 14:45] LABS: Anion Gap 2 (5-15); BUN 18 mg/dL (7-18); BUN/Creat Ratio 15.1 RATIO (10-20); Chloride 115 mmol/L (98-107); Creatinine, Serum 1.19 mg/dL (0.55-1.02); EST Glomerular Filtration Rate 47 mL/min (>60); Est Glom Filt Rate - Afr Amer 57 mL/min (>60); Estimated Creatinine Clearance 43.86 ml/min; Glucose 99 mg/dL (74-106); Sodium Level 140 mmol/L (136-145)
--- NOTE | 2023-07-29 14:46 | DCINST_ITS ---
Discharge Instructions Diet Discharge Diet: Low fat / Low cholesterol and 2000 mg Sodium Diet Activity Discharge Activity: Return to Normal Activity Weight Bearing Status: Weight bearing as tolerated Dressing / Incision Call your doctor if you observe: Fever of 101 or Higher, Coldness, Increased Pain, Numbness or Tingling, Change in Color, Inability to urinate, Inability to have a bowel movement, Using more than 1 pad per hour, Shortness of breath, Dizziness, Fainting spells, Swelling in the ankles, Chest pain, Prolonged hiccupping, Increased palpitations (irregular heartbeat) and Calf discomfort Follow Up Care When: IN 2 WEEKS Test Results: Test results from this visit will be discussed in further detail at your follow- up appointment, if applicable. Discharge Plan Admission Admit Date/Time: 07/26/23 00:34 Primary Reason for Your Visit: Non-STEMI, Takotsubo cardiomyopathy. Attending Provider: Wayne Bradley Primary Care Provider: Bo Nicholas Consulting Providers: Alex Chang; Bo Fong; Percy Lugo; Lauryn Garcia; Lyssa Cristobal; Yaz Peterson; Sherlyn Omer; Doug Montes; Maddi Cosby; Ralph Wallace; Aleksey Dover; Tana Bass; Bret Rosales; Natalya Torres; Cory Rivera; Jacobo Villaseñor; Janes James; Sahara Burns; Max Alfredo; Allison Laguna; Laci Marie Instructions Additional Instructions / Restrictions: Advise BMP magnesium and phosphorus in 1 week. 30-day event monitor. Discharge Orders/Prescriptions Prescriptions: New losartan 50 mg Tablet 50 mg PO BID Qty: 0 0RF atorvastatin 40 mg Tablet 40 mg PO QHS Qty: 0 0RF carvedilol 12.5 mg Tablet 12.5 mg PO BID Qty: 0 0RF aspirin 81 mg Tablet,Delayed Release (Dr/Ec) 81 mg PO BREAKFAST Qty: 0 0RF potassium, sodium phosphates 280-160-250 mg Powder In Packet 1 packet PO TID 2 Days Qty: 6 0RF nitroglycerin 0.4 mg Tablet, Sublingual 0.4 mg sublingual Q5M PRN (Reason: Cardiac/Chest Pain) Qty: 0 0RF Continued vilazodone 20 mg tablet 10 mg PO DAILY magnesium 250 mg tablet 250 mg PO DAILY Hold Instructions: Order Completed letrozole 2.5 mg tablet 2.5 mg PO DAILY acetaminophen [Tylenol Arthritis Pain] 650 mg tablet extended release 650 mg PO DAILY Hold Instructions: Order Completed omeprazole 20 mg capsule,delayed release(DR/EC) 20 mg PO DAILY latanoprost 1 DROP bottle 1 drp EACH EYE QHS Patient Comments: GLAUCOMA alendronate 70 mg tablet 70 mg PO Q7D mirtazapine 30 mg tablet 30 mg PO QHS levetiracetam [Keppra] 500 mg tablet 500 mg PO BID nifedipine [Procardia XL] 30 mg tablet extended release 24hr 30 mg PO DAILY polyethylene glycol 3350 [Miralax] 17 gram/dose powder 17 g PO DAILY Held calcium carbonate-vitamin D3 1 TAB tablet 1 tablet PO DAILY@0800 Hold Instructions: Hold while patient is taking Neutra-Phos to avoid drug- drug interaction. Patient Comments: supplement Discontinued meloxicam 15 mg tablet 7.5 mg PO BID Qty: 30 4RF lisinopril 20 mg tablet 20 mg PO DAILY metoprolol tartrate 25 mg tablet 25 mg PO BID Other Ambulatory Orders: 30 Day Event Recorder Preventi (Urgent) Timeframe: 1 Day Facility: [facility] - Location: Cardiovascular Services Ordered By: Dr. Wayne Bradley Referrals / Follow Up: Bo Nicholas MD [Primary Care Provider] - Stephane Kemp MD [Med Staff - Active Staff] - Within 1 Month Stephane Ferrari DO [Med Staff - Active Staff] - 08/04/22 1:15 pm (Please arrive 15 minutes prior to appointment and bring insurance cards.) Ronnie Knott MD [Non-Staff -Ordering Privileges] - Within 1 Month Disposition Disposition (needs filled in before D/C Order can be placed): Home, Self Care
--- NOTE | 2023-07-29 14:54 | DS.PCM_ITS ---
Providers Date of Admission: 07/26/23 Date of Discharge: 07/29/23 Primary Care Physician: Dr. Bo Nicholas MD Consultations 07/28/23 16:00 Tele [Consult: Tele-Neurology] Routine Consulting Provider: [facility] Reason for Consult: Stroke alert, MRI new findings subacute cortical-based ischemic infarction. EMERGENT Consult: No MD Notified: Yes Date Notified: 07/28/23 Time Notified: 16:14 Method of Notification: Answering Service Comments:: Opinion regarding starting baby aspirin. Nursing Unit Staff Notify [facility] of Tele-Neurology Consult: Yes Reason For Visit: TAKOTSUBOS CARDIOMYOPATHY & UNCONTROLLED DEPRESSIO Diagnosis Discharge Diagnosis (1) Takotsubo cardiomyopathy: Status: Acute Code(s): I51.81 - Takotsubo syndrome (2) Chest pain: Status: Acute Code(s): R07.9 - Chest pain, unspecified Qualifiers: Chest pain type: unspecified Qualified Code(s): R07.9 - Chest pain, unspecified (3) Uncontrolled depression: Status: Acute Code(s): F32.A - Depression, unspecified (4) History of right MCA stroke: Status: Acute Code(s): Z86.73 - Personal history of transient ischemic attack (TIA), and cerebral infarction without residual deficits Plan Takotsubo Cardiomyopathy * with no flow-limiting ischemia on emergent LHC * EF on LHC was 20-25%. * 2D echo was done which shows EF 45%, apical akinesis, mild anteroseptal severely hypokinetic. Lateral apex akinesis. Mild TR. Normal mitral valve and aortic valve. * Cardiology switching metoprolol to carvedilol 12.5 mg twice daily. Also starting losartan 50 mg twice daily. He did not feel diuresis was indicated at this time. * Patient follow-up with cardiology as outpatient. Stroke alert on 07/28/2023: Please see separate note for stroke alert. [facility] consult reviewed. Patient complained that her visual field seemed worse but she is not very clear. MRI brain ordered. CT brain individually reviewed and discussed with the [facility] radiology. It shows right inferior division MCA ischemic infarct. Further management depends on the MRI brain. Possible differential may be syncopal episode. Patient also complained of chest tightness therefore twelve-lead EKG and troponin ordered. Troponin shows decreased, 19,978 from the previous more than 25,000. MRI brain showed subacute cortical-based ischemic infarction with early cortical laminar necrosis and without hemorrhagic transformation. Telemetry neuro [facility] already has been following since day 1 and evaluate the patient during his stroke alert. 07/29: Patient is states that she has decreased acuity of vision/objects looks blurrier for last few days. 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 She has color vision intact, red to green and yellow. On my exam in the morning, I did not find any aphasia but the nurse said that she noticed some word finding difficulties and difficult in expression herself. Prior to that patient was evaluated by neurologist and the statement was everything seems consistent with her previous stroke in June without new issue. Recommended planogrammer to discover A-fib and needs 30-day monitor. Recommended aspirin and statin patient already on a statin therefore continued. Aspirin [address]. Patient had CT head stat which shows stable encephalomalacia similar to yesterday. Patient is started on baby aspirin as per neurologist recommendation. Patient is being discharged to acute rehab on baby aspirin and high intensity statin. KELSI with hypophosphatemia: Repeat labs shows hypophosphatemia, phosphorus 2.4. Creatinine increased from 0.83-1.44. Patient did not had IV contrast today. IV fluid normal saline ordered. 07/29 continue Neutra-Phos as ordered and discharge instruction. Depression * likely situational given recent events. * continue vilazodone, mirtazapine. Patient on the lassoed on 10 mg daily, dose updated. * follow up with psychiatry/counseling as outpt. Recent history of CVA; * diagnosed on June 23, 2023 with patient falling in her bathroom striking her head around 6:00 AM and then having a severe Right-sided headache with Left-sided weakness with CTA head positive Acute Right MCA Occlusion for which she was then treated with TNK and unfortunately then developed a SAH; * residual Left hemiparesis * In inpatient rehab since on July 07, 2023 * PT OT * Hopefully she will be able to return to rehabilitation soon. Recent Proteus mirabilis UTI: Patient urine culture on 07/24 shows Proteus mirabilis more than thousand colonies, pansensitive except nitrofurantoin. Patient is allergic to penicillin and was treated for 2 days of Levaquin in rehab before admission. Discussed with the rehab physician, my colleague, Dr. Dilma Chacon and Levaquin 500 milligram daily for 3 more days ordered. Patient denies dysuria. 07/29: Patient completed Levaquin today. No further indication for antibiotic. Chronic conditions: * Essential hypertension - Continue current regimen plus give prn IV Hydralazine for systolic blood pressure > 160 mm Hg. * Obesity; with a BMI of 32.7 this admission - Weight loss will be recommended. * Glaucoma - Resume eye drops s previous. * OA - Stable. Give Tylenol prn. * Osteoporosis - Continue Alendronate as an outpatient. * History of breast cancer; s/p Right mastectomy (2014) after lumpectomy (1991) * GERD; with history of gastric ulcer DVT prophylaxis - SCDs Discharge medication reconciliation done. Discharge follow-up instructions completed. Discharge process discussed with the patient and all questions were answered to patient's satisfaction. Follow with PCP in 1 to 2 weeks Total time spent, exact 35 minutes on discharge meds reconciliation, examination, coordination of care with nurses and ancillary staff, review of imaging and blood test and discussion with the patient on follow-up instructions. 2D echo 07/27/2023 Interpretation Summary Moderate segmental systolic dysfunction (see wall motion). The left ventricular ejection fraction is 45 %. Wall motion abnormality noted above consistent with Takotsubo cardiomyopathy. Contrast injection was performed. Medications at Discharge Home Medications calcium carbonate 600 mg-vitamin D3 20 mcg (800 unit) tablet 1 tablet PO DAILY@0800 supplement 08/10/14 latanoprost 0.005 % eye drops 1 drp EACH EYE QHS Eye drops 08/10/14 acetaminophen 650 mg tablet,extended release (Tylenol Arthritis Pain) 650 mg PO DAILY pain 08/29/20 letrozole 2.5 mg tablet 2.5 mg PO DAILY Breast cancer 08/29/20 magnesium 250 mg tablet 250 mg PO DAILY supplement 08/29/20 vilazodone 20 mg tablet 10 mg PO DAILY Antidepressant 08/29/20 omeprazole 20 mg capsule,delayed release 20 mg PO DAILY GERD 08/30/20 alendronate 70 mg tablet 70 mg PO Q7D Bone health 07/06/23 mirtazapine 30 mg tablet 30 mg PO QHS Sleep 07/06/23 levetiracetam 500 mg tablet (Keppra) 500 mg PO BID seizure 07/26/23 nifedipine 30 mg tablet,extended release 24 hr (Procardia XL) 30 mg PO DAILY blo od pressure 07/26/23 polyethylene glycol 3350 17 gram/dose oral powder (Miralax) 17 g PO DAILY cons tipation 07/26/23 aspirin 81 mg tablet,delayed release 81 mg PO BREAKFAST #0 tabs 07/29/23 atorvastatin 40 mg tablet 40 mg PO QHS #0 tabs 07/29/23 carvedilol 12.5 mg tablet 12.5 mg PO BID #0 tabs 07/29/23 losartan 50 mg tablet 50 mg PO BID #0 tabs 07/29/23 nitroglycerin 0.4 mg sublingual tablet 0.4 mg sublingual Q5M PRN Cardiac/Chest Pain #0 tabs 07/29/23 potassium, sodium phosphates 280 mg-160 mg-250 mg oral powder packet 1 packet PO TID 2 days #6 ea 07/29/23 Physical Exam Narrative Please see progress note alert same day. Patient had some problem in finding words to describe herself. Repeat CT head today done. Found no acute change. Weight / BMI Weight Weight: 188 lb 4.396 oz Body Mass Index (BMI) 32.3 ABG / Lab / Microbiology Data 07/28/23 13:35 07/29/23 13:48 Laboratory: Laboratory Results - last 24 hr 07/28/23 12:39: POC Glucose 124 H 07/29/23 13:48: Sodium 140, Potassium 4.0, Chloride 115 H, Carbon Dioxide 23.0, Anion Gap 2 L, BUN 18, Creatinine 1.19 H, Estim Creat Clear Calc 43.86, Est GFR (MDRD) Af Amer 57 L, Est GFR (MDRD) Non-Af 47 L, BUN/Creatinine Ratio 15.1, Glucose 99, Calcium 10.0 Radiography Diagnostic Testing: Radiology Impression Brain MRI 07/28/23 13:23 IMPRESSION: 1. Subacute cortical based ischemic infarction with early cortical laminar necrosis and without hemorrhagic transformation ischemic infarct along the right superior temporal gyrus, the posterior right medial temporal gyrus, right supramarginal gyrus, right angular gyrus and right lateral occipital gyrus. These are new findings when compared to MRI brain of 07/20/2020. 2. Chronic white matter ischemic changes in both cerebral hemispheres are unchanged. Electronically Signed: Elan Tee MD at 15:36 EST , Brain CT 07/29/23 13:08 IMPRESSION: Stable examination. Stable linear hyperdensity as described within the inferior aspect of the posterior right temporal lobe suggestive of possible petechial bleed. Electronically Signed: Gordo Clay MD at 13:26 EST , D/C Instructions Discharge Diet: Low fat / Low cholesterol and 2000 mg Sodium Diet Weight Bearing Status: Weight bearing as tolerated Call your doctor if you observe: Fever of 101 or Higher, Coldness, Increased Pain, Numbness or Tingling, Change in Color, Inability to urinate, Inability to have a bowel movement, Using more than 1 pad per hour, Shortness of breath, Dizziness, Fainting spells, Swelling in the ankles, Chest pain, Prolonged hiccupping, Increased palpitations (irregular heartbeat) and Calf discomfort When: IN 2 WEEKS Meaningful Use Info Meaningful Use Diagnoses (Choose all that apply): AMI AMI/Post PCI/Angioplasty Aspirin given w/in 24hrs of arrival?: Yes ASA at discharge?: Yes Statins at discharge?: Yes Evgeny/ARB at discharge?: Yes Beta Oscar at discharge?: Yes Done w/ Acute MS measure.: Yes Discharge Plan Admission Admit Date/Time: 07/26/23 00:34 Primary Reason for Your Visit: Non-STEMI, Takotsubo cardiomyopathy. Attending Provider: Wayne Bradley Primary Care Provider: Bo Nicholas Consulting Providers: Alex Chang; Bo Fong; Percy Lugo; Lauryn Garcia; Lyssa Cristobal; Yaz Peterson; Sherlyn Omer; Doug Montes; Maddi Cosby; Ralph Wallace; Aleksey Dover; Tana Bass; Bret Rosales; Natalya Torres; Cory Rivera; Jacobo Villaseñor; Janes James; Sahara Burns; Max Alfredo; Allison Laguna; Laci Maire Instructions Additional Instructions / Restrictions: Advise BMP magnesium and phosphorus in 1 week. 30-day event monitor. Discharge Orders/Prescriptions Prescriptions: New losartan 50 mg Tablet 50 mg PO BID Qty: 0 0RF atorvastatin 40 mg Tablet 40 mg PO QHS Qty: 0 0RF carvedilol 12.5 mg Tablet 12.5 mg PO BID Qty: 0 0RF aspirin 81 mg Tablet,Delayed Release (Dr/Ec) 81 mg PO BREAKFAST Qty: 0 0RF potassium, sodium phosphates 280-160-250 mg Powder In Packet 1 packet PO TID 2 Days Qty: 6 0RF nitroglycerin 0.4 mg Tablet, Sublingual 0.4 mg sublingual Q5M PRN (Reason: Cardiac/Chest Pain) Qty: 0 0RF Continued vilazodone 20 mg tablet 10 mg PO DAILY magnesium 250 mg tablet 250 mg PO DAILY Hold Instructions: Order Completed letrozole 2.5 mg tablet 2.5 mg PO DAILY acetaminophen [Tylenol Arthritis Pain] 650 mg tablet extended release 650 mg PO DAILY Hold Instructions: Order Completed omeprazole 20 mg capsule,delayed release(DR/EC) 20 mg PO DAILY latanoprost 1 DROP bottle 1 drp EACH EYE QHS Patient Comments: GLAUCOMA alendronate 70 mg tablet 70 mg PO Q7D mirtazapine 30 mg tablet 30 mg PO QHS levetiracetam [Keppra] 500 mg tablet 500 mg PO BID nifedipine [Procardia XL] 30 mg tablet extended release 24hr 30 mg PO DAILY polyethylene glycol 3350 [Miralax] 17 gram/dose powder 17 g PO DAILY Held calcium carbonate-vitamin D3 1 TAB tablet 1 tablet PO DAILY@0800 Hold Instructions: Hold while patient is taking Neutra-Phos to avoid drug- drug interaction. Patient Comments: supplement Discontinued meloxicam 15 mg tablet 7.5 mg PO BID Qty: 30 4RF lisinopril 20 mg tablet 20 mg PO DAILY metoprolol tartrate 25 mg tablet 25 mg PO BID Other Ambulatory Orders: 30 Day Event Recorder Preventi (Urgent) Timeframe: 1 Day Facility: [facility] - Location: Cardiovascular Services Ordered By: Dr. Wayne Bradley Referrals / Follow Up: Bo Nicholas MD [Primary Care Provider] - Stephane Kemp MD [Med Staff - Active Staff] - Within 1 Month Stephane Ferrari DO [Med Staff - Active Staff] - 08/04/22 1:15 pm (Please arrive 15 minutes prior to appointment and bring insurance cards.) Ronnie Knott MD [Non-Staff -Ordering Privileges] - Within 1 Month Disposition Disposition (needs filled in before D/C Order can be placed): Home, Self Care Charges/Coding Visit Charges Inpatient E&M: 60507 Disch Hosp >30min
[2023-07-29 15:00] VITALS: BP 114/56; PULSE 75; RESP 16; TEMP 36.7; O2SAT 97
--- NOTE | 2023-07-29 15:12 | CASEMGMT ---
Patient was approved to return to [facility] Acute Rehab Unit. Patient is ready and will be discharged back to Rehab today. SW notified Ebony in Rehab. Plan: d/c to [facility] Acute Rehab Unit. Myah [facility]
--- NOTE | 2023-07-29 16:07 | STROKE.CONS ---
Assessment and Plan: Stroke Assessment/Plan Imaging shows subacute infarct consistent in territory with her even from June. She had an appropriate work up at that time. This included cardiac monitoring for which she is unaware of the results. No additional recommendations at this time unless these results can be discovered. Should she have atrial fibrillation she should be initiated on anticoagulation. Other questions from family answered and plan discussed with primary team. HPI Consult Data Date of Consult: 07/29/23 HPI Narrative HPI Narrative: GILBERTO CAMPBELL, is a 72 F in whom imaging shows subacute infarct consistent in territory with her even from June. She had an appropriate work up at that time. This included cardiac monitoring for which she is unaware of the results. [facility] Medical History (Updated 07/26/23 @ 11:[address] Stephane Kemp MD) Depression Gastric ulcer GERD (gastroesophageal reflux disease) Glaucoma History of breast cancer HTN (hypertension) Left hand weakness Left posterior interosseous nerve syndrome Lesion of right radial nerve Major depressive disorder, recurrent episode, moderate Obesity (BMI 30.0-34.9) Osteoarthritis Osteoporosis Sleep apnea Stroke/cerebrovascular accident Tendonitis Ulnar neuropathy at elbow of left upper extremity Home Medications calcium carbonate 600 mg-vitamin D3 20 mcg (800 unit) tablet 1 tablet PO DAILY@0800 supplement 08/10/14 [History Last Taken Unknown] latanoprost 0.005 % eye drops 1 drp EACH EYE QHS Eye drops 08/10/14 [History Last Taken Unknown] acetaminophen 650 mg tablet,extended release (Tylenol Arthritis Pain) 650 mg PO DAILY pain 08/29/20 [History Last Taken Unknown] letrozole 2.5 mg tablet 2.5 mg PO DAILY Breast cancer 08/29/20 [History Last Taken Unknown] magnesium 250 mg tablet 250 mg PO DAILY supplement 08/29/20 [History Last Taken Unknown] vilazodone 20 mg tablet 10 mg PO DAILY Antidepressant 08/29/20 [History Last Taken 07/06/23] omeprazole 20 mg capsule,delayed release 20 mg PO DAILY GERD 08/30/20 [History Last Taken Unknown] alendronate 70 mg tablet 70 mg PO Q7D Bone health 07/06/23 [History Last Taken Unknown] mirtazapine 30 mg tablet 30 mg PO QHS Sleep 07/06/23 [History Last Taken Unknown] levetiracetam 500 mg tablet (Keppra) 500 mg PO BID seizure 07/26/23 [History Last Taken Unknown] nifedipine 30 mg tablet,extended release 24 hr (Procardia XL) 30 mg PO DAILY blood pressure 07/26/23 [History Last Taken Unknown] polyethylene glycol 3350 17 gram/dose oral powder (Miralax) 17 g PO DAILY constipation 07/26/23 [History Last Taken Unknown] aspirin 81 mg tablet,delayed release 81 mg PO BREAKFAST #0 tabs 07/29/23 [Rx Last Taken Unknown] atorvastatin 40 mg tablet 40 mg PO QHS #0 tabs 07/29/23 [Rx Last Taken Unknown] carvedilol 12.5 mg tablet 12.5 mg PO BID #0 tabs 07/29/23 [Rx Last Taken Unknown] losartan 50 mg tablet 50 mg PO BID #0 tabs 07/29/23 [Rx Last Taken Unknown] nitroglycerin 0.4 mg sublingual tablet 0.4 mg sublingual Q5M PRN Cardiac/Chest Pain #0 tabs 07/29/23 [Rx Last Taken Unknown] potassium, sodium phosphates 280 mg-160 mg-250 mg oral powder packet 1 packet PO TID 2 days #6 ea 07/29/23 [Rx Last Taken Unknown] Allergy/AdvReac Type Severity Reaction Status Date / Time Penicillins [PCN] Allergy Severe Anaphylaxis Verified 06/23/23 07:41 Family History Aunt Cancer Sister Cancer Surgical History History of lumpectomy of right breast History of right mastectomy Social History household members: spouse housing: other details: One-story house with a basement. Laundry is upstairs number of children: 1 current occupational status: retired Smoking Status: Never smoker Electronic Cigarette Use: not used second hand exposure: No alcohol intake: current alcohol intake frequency: holidays/special occasions only substance use type: does not use Vital Signs Vital Signs Vital Signs: 07/28/23 16:59 07/28/23 21:17 07/28/23 21:17 Temperature 97.8 F 98.5 F 98.5 F Temperature Source Temporal Oral Oral Pulse Rate 75 88 88 Pulse Strength Respiratory Rate 16 16 16 Respiratory Effort Respiratory Depth Respiratory Pattern Blood Pressure 150/63 H 155/72 H 155/72 H Blood Pressure [2nd BP] Blood Pressure Mean 92 99 99 Blood Pressure Mean [2nd BP] Blood Pressure Source Monitor Monitor Blood Pressure Source [2nd BP] Blood Pressure Position Supine Semi-Fowlers Blood Pressure Position [2nd BP] Blood Pressure Location Left Leg Left Leg Blood Pressure Location [2nd BP] Pulse Ox 98 100 100 Oxygen Delivery Method Room Air Room Air Room Air 07/28/23 21:17 07/28/23 21:17 07/29/23 04:00 Temperature 98.4 F Temperature Source Oral Pulse Rate 77 Pulse Strength Normal (2+) Respiratory Rate 18 Respiratory Effort Normal Respiratory Depth Normal Respiratory Pattern Normal Blood Pressure 155/71 H Blood Pressure [2nd BP] Blood Pressure Mean 99 Blood Pressure Mean [2nd BP] Blood Pressure Source Blood Pressure Source [2nd BP] Blood Pressure Position Blood Pressure Position [2nd BP] Blood Pressure Location Blood Pressure Location [2nd BP] Pulse Ox 99 Oxygen Delivery Method Room Air Room Air 07/29/23 07:55 07/29/23 08:11 07/29/23 07:55 Temperature 97.9 F Temperature Source Temporal Pulse Rate 81 Pulse Strength Respiratory Rate 16 Respiratory Effort Normal Non-Labored Respiratory Depth Normal Respiratory Pattern Normal Blood Pressure 166/66 H Blood Pressure [2nd BP] Blood Pressure Mean 99 Blood Pressure Mean [2nd BP] Blood Pressure Source Monitor Blood Pressure Source [2nd BP] Blood Pressure Position Semi-Fowlers Blood Pressure Position [2nd BP] Blood Pressure Location Left Arm Blood Pressure Location [2nd BP] Pulse Ox 94 Oxygen Delivery Method Room Air Room Air Room Air 07/29/23 10:49 07/29/23 11:55 07/29/23 15:00 Temperature 97.7 F L 98.1 F Temperature Source Oral Oral Pulse Rate 88 78 75 Pulse Strength Respiratory Rate 16 16 Respiratory Effort Respiratory Depth Respiratory Pattern Blood Pressure 143/65 H 114/56 L Blood Pressure [2nd BP] 158/85 H Blood Pressure Mean 91 75 Blood Pressure Mean [2nd BP] 109 Blood Pressure Source Monitor Monitor Blood Pressure Source [2nd BP] Monitor Blood Pressure Position Sitting Semi-Fowlers Blood Pressure Position [2nd BP] Sitting Blood Pressure Location Left Leg Left Leg Blood Pressure Location [2nd BP] Left Leg Pulse Ox 98 97 Oxygen Delivery Method Room Air Room Air 07/29/23 10:00 07/29/23 15:00 Temperature Temperature Source Pulse Rate Pulse Strength Normal (2+) Respiratory Rate Respiratory Effort Normal Non-Labored Respiratory Depth Normal Respiratory Pattern Normal Blood Pressure Blood Pressure [2nd BP] Blood Pressure Mean Blood Pressure Mean [2nd BP] Blood Pressure Source Blood Pressure Source [2nd BP] Blood Pressure Position Blood Pressure Position [2nd BP] Blood Pressure Location Blood Pressure Location [2nd BP] Pulse Ox Oxygen Delivery Method Room Air Weight Weight: 85.4 kg Body Mass Index (BMI) 32.3 EEG Results Procedure Details EEG Procedure Details: GILBERTO CAMPBELL is a 72 year old F with a past medical history of , who presents for evaluation of Electroencephalogram on DATE at TIME NIHSS NIHSS Nursing Documentation NIHSS Nursing Documentation: NIHSS: Ischemic Stroke/TIA Start: 07/28/23 16:03 Freq: [id number] Status: Active Protocol: Activity Type Activity Date Activity User E-sign Co-sign Detail Recorded Client Recorded Date Recorded By Document 07/29/23 15:00 Desktop 07/29/23 15:12 07/29/23 15:00 NIH Stroke Scale [NIHSS] A score of 0 is normal or asymptomatic . Total possible score is 42. Inpatient: RN or Physician to activate a stroke alert for onset of new stroke symptoms or with NIHSS increase >/= 3 points. Following change in neurological status, NIHSS will be performed per physician order or more frequently PRN. -1a. Level of Consciousness Alert; keenly responsive -1b. LOC Questions Answers one question correctly. -1c. LOC Commands Performs both tasks correctly . -2. Best Gaze Normal -3. Visual Partial hemianopia -4. Facial Palsy Minor paralysis (flattened nasolabial fold , asymmetry on smiling) -5a. Left Arm Drift; arm drifts downward but doesn?t hit the bed -5b. Right Arm No drift; arm holds 90 (or 45 ) degrees for full 10 seconds -6a. Left Leg Drift; leg falls by the end of 5- seconds, but does not hit bed -6b. Right Leg No drift; leg holds 30-degree position for full 5 seconds -7. Limb Ataxia Absent -8. Sensory Mild-to- moderate sensory loss; -9. Best Language No aphasia; normal -10. Dysarthria Normal -11. Extinction and Inattention No abnormality -Total 6 Query Text:A score of 0 is normal or asymptomatic. Total possible score is 42 . ED: Notify Physician for NIHSS increase by > / = 3 points. Inpatient: RN or Physician to activate a stroke alert for NIHSS increase of > / = 3 points. Coma Scale [Assess] -Eye Opening Spontaneous -Motor Obeys Commands -Verbal Oriented [Total] -Coma Scale Total 15 Lab / Micro Data 07/28/23 13:35 07/29/23 13:48 Labs: Laboratory Results - last 24 hr 07/28/23 12:39: POC Glucose 124 H 07/29/23 13:48: Sodium 140, Potassium 4.0, Chloride 115 H, Carbon Dioxide 23.0, Anion Gap 2 L, BUN 18, Creatinine 1.19 H, Estim Creat Clear Calc 43.86, Est GFR (MDRD) Af Amer 57 L, Est GFR (MDRD) Non-Af 47 L, BUN/Creatinine Ratio 15.1, Glucose 99, Calcium 10.0 Rhythm Strip Rhythm Strip: Sinus Rhythm Rate: 72 Imaging Radiology Impression Brain CT 07/29/23 13:08 IMPRESSION: Stable examination. Stable linear hyperdensity as described within the inferior aspect of the posterior right temporal lobe suggestive of possible petechial bleed. Electronically Signed: oGrdo Clay MD at 13:26 EST , Active Medications Active Medications Active Medications: Current Medications Generic Name Dose Route Start Last Admin Trade Name Freq PRN Reason Stop Dose Admin Acetaminophen 650 mg 07/26/23 10:00 07/29/23 10:52 Acetaminophen 325 Mg Tablet PO 650 mg DAILY ELIANA Administration Albuterol Sulfate 2.5 mg 07/26/23 00:49 Albuterol 2.5 Mg/3 Ml Vial.Neb. INHALATION Q2H PRN PRN SOB/Wheezing Aspirin 81 mg 07/29/23 13:05 07/29/23 14:40 Aspirin E.C. 81 Mg Tablet PO 81 mg BREAKFAST ELIANA Administration Atorvastatin Calcium 40 mg 07/28/23 22:00 07/28/23 19:45 Atorvastatin Calcium 40 Mg Tablet PO 40 mg QHS ELIANA Administration Calcium/Vitamin D 1 tablet 07/26/23 08:00 07/29/23 10:52 Calcium Carb/Vitamin D 1 Tablet Tablet PO 1 tablet DAILY@0800 ELIANA Administration Carvedilol 12.5 mg 07/26/23 10:00 07/29/23 10:53 Carvedilol 12.5 Mg Tablet PO 12.5 mg BID ELIANA Administration Protocol Hydralazine HCl 10 mg 07/26/23 00:57 Hydralazine 20 Mg/Ml Vial IV Q6H PRN PRN BLOOD PRESSURE ELEVATION Protocol Latanoprost 1 drp 07/26/23 22:00 07/28/23 19:45 Latanoprost 0.005% 1 Bottle EACH EYE 1 drp QHS ELIANA Administration Letrozole 2.5 mg 07/26/23 10:00 07/29/23 10:52 Letrozole 2.5 Mg Tablet PO 2.5 mg DAILY ELIANA Administration Levetiracetam 500 mg 07/29/23 22:00 Levetiracetam 500 Mg Tablet PO BID [facility] Losartan Potassium 50 mg 07/26/23 13:00 07/29/23 10:53 Losartan Potassium 50 Mg Tablet PO 50 mg BID [facility] Administration Protocol Melatonin 3 mg 07/26/23 00:49 Melatonin 3 Mg Tablet PO QHS PRN PRN INSOMNIA Mirtazapine 30 mg 07/26/23 22:00 07/28/23 19:45 Mirtazapine 30 Mg Tablet PO 30 mg QHS ELIANA Administration Nifedipine 30 mg 07/29/23 13:45 07/29/23 14:40 Nifedipine 30 Mg Tablet PO Not Given DAILY [facility] Protocol Nitroglycerin 0.4 mg 07/26/23 00:49 Nitroglycerin (Inpatient Use) 0.4 Mg Tab.Subl SL Q5M PRN CARDIAC/CHEST PAIN Nutritional Formula (Lactose Free) 120 ml 07/26/23 14:00 07/29/23 14:34 Ensure Plus High Protein 120 Ml Liquid PO Not Given 4X/DAY [facility] Ondansetron HCl 4 mg 07/26/23 00:49 07/26/23 09:01 Ondansetron 4 Mg/2 Ml Vial IV 4 mg Q8H PRN PRN Administration NAUSEA/VOMITING Pantoprazole Sodium 20 mg 07/26/23 10:00 07/29/23 10:52 Pantoprazole Sodium 20 Mg Tablet PO 20 mg DAILY ELIANA Administration Polyethylene Glycol 17 gm 07/30/23 10:00 Polyethylene Glycol 3350 17 Gm Packet PO DAILY ELIANA Potassium Phos/Sodium Phos 1 packet 07/29/23 14:00 07/29/23 14:40 Na Biphos/Potassium Phosphate Packet PO 07/31/23 14:01 1 packet TID ELIANA Administration Sodium Chloride 10 - 40 ml 07/26/23 00:09 07/28/23 15:37 0.9% Saline Lock 10 Ml Syringe IV 10 ml UD PRN Administration SALINE FLUSH Sodium Chloride 10 - 40 ml 07/26/23 05:28 0.9 % Nacl (Sterile) Posiflush 10 Ml IV UD PRN Port access or dressing change Vilazodone HCl 10 mg 07/28/23 10:00 07/29/23 10:52 Vilazodone Hydrochloride 10 Mg Tablet PO 10 mg DAILY ELIANA Administration
--- NOTE | 2023-07-29 16:32 | NURSING ---
Report called to nurse on Rehab unit
== END 2023-07-29 16:50 | DRG 287 ==
PROVIDERS: Internal Medicine; Internal Medicine Cardiovascular Disease; Admitting Provider Specialist; PCP Family Medicine; Visit Provider Internal Medicine
DX: I51.81 Takotsubo syndrome (principal); N17.9 Acute kidney failure, unspecified; I69.354 Hemiplegia and hemiparesis following cerebral infarction affecting left non-dominant side; N39.0 Urinary tract infection, site not specified; E83.39 Other disorders of phosphorus metabolism; I10 Essential (primary) hypertension; F32.A Depression, unspecified; M19.90 Unspecified osteoarthritis, unspecified site; K21.9 Gastro-esophageal reflux disease without esophagitis; E78.2 Mixed hyperlipidemia; I25.10 Atherosclerotic heart disease of native coronary artery without angina pectoris; I69.398 Other sequelae of cerebral infarction; E66.9 Obesity, unspecified; H40.9 Unspecified glaucoma; Z68.32 Body mass index [BMI] 32.0-32.9, adult; M81.0 Age-related osteoporosis without current pathological fracture; B96.4 Proteus (mirabilis) (morganii) as the cause of diseases classified elsewhere; Z79.82 Long term (current) use of aspirin; Z79.83 Long term (current) use of bisphosphonates; Z79.899 Other long term (current) drug therapy; Z79.811 Long term (current) use of aromatase inhibitors
CPT/HCPCS: 36415; 70450; 70551; 80048; 80053; 82962; 83735; 84100; 84443; 84484; 85025; 93005; 93306; 94668; 97162; 97166; 97530; 97535; 97802; J7030; Q9957; A4216; C8929; J2405

== ENCOUNTER 2023-07-29 17:19 | Inpatient (IN) | payer MEDICARE, SELFPAY ==
[2023-07-29 17:49] VITALS: BP 154/84; PULSE 70; RESP 17; TEMP 36.6; O2SAT 95; BMI 31.8
[2023-07-29 19:03] VITALS: BP 154/84; PULSE 70; RESP 17; TEMP 36.6; O2SAT 99
--- OUTSIDE RECORDS SUMMARY | 2023-07-29 20:06 | XMS RPT_ITS | CCD ---
Author Name Unknown Address [address] [place] [address] Organization [facility] Care Team Providers Care Ornamental Metal Erector Apprentice Name Role Phone Viridiana Jackson LPN Unavailable [phone] Viridiana Jackson LPN Unavailable [phone] Wandy Oliveira MD Unavailable Anderson Nicholas MD Primary Care Provider Anderson Nicholas MD Primary Care Provider [phone] Anderson Nicholas MD Primary Care Provider [phone] MIRYAM RAMIREZ Referring Unavailable MIRYAM RAMIREZ Attending [...] Facility (2 sources) PENCILLIN drug allergy 5 [facility] Work Phone: (1 source) Penicillin G Drug Allergy 1 [facility] Work Phone: (2 sources) Penicillins; Translations: [PENICILLINS] Propensity to adverse reactions 6 [facility] Work Phone: (3 sources) Penicillins Propensity to adverse reactions 6 [facility] Work Phone: (3 sources) buPROPion; Translations: [BUPROPION] Drug Allergy 3 Swelling [facility] Medications Completed/Discontinued Medications Medication Drug Class(es) [...] 161 cm Miryam Ramirez APRN.CNP Work Phone: [facility] 05-15-2023 09:27-0500 Body temperature 97.7 [degF] Miryam Ramirez APRN.CNP Work Phone: [facility] 05-15-2023 09:27-0500 Body weight 90.27 kg Miryam Ramirez APRN.CNP Work Phone: [facility] 05-15-2023 09:27-0500 Diastolic blood pressure 80 mm[Hg] Miryam Ramirez APRN.CNP Work Phone: [facility] 05-15-2023 09:27-0500 Heart rate 91 /min Miryam Ramirez WEB INTERFACE DEVELOPER.TRIAL PARALEGAL Work Phone: [facility] 05-15-2023 09:27-0500 SaO2% (BldA) [Mass fraction] 92 % Miryam Ramirez WEB INTERFACE DEVELOPER.TRIAL PARALEGAL Work Phone: [facility] 05-15-2023 09:27-0500 Systolic blood pressure 141 mm[Hg] [place] Rmairez WEB INTERFACE DEVELOPER.TRIAL PARALEGAL Work Phone: [facility] 12-22-2022 09:27-0400 Body height 160 cm Iris Ulloa MD Work Phone: [facility] 12-22-2022 09:27-0400 Body weight 89.54 kg Iris Ulloa MD Work Phone: [facility] 12-22-2022 09:27-0400 Diastolic blood pressure 70 mm[Hg] Iris Ulloa MD Work Phone: [facility] 12-22-2022 09:27-0400 Systolic blood pressure 110 mm[Hg] Iris Ulloa MD Work Phone: [facility] 05-09-2022 09:10-0500 Body height 161.5 cm [place] Ramirez WEB INTERFACE DEVELOPER.TRIAL PARALEGAL Work Phone: [facility] 05-09-2022 09:10-0500 Body temperature 97.81 [degF] Miryam Ramirez WEB INTERFACE DEVELOPER.TRIAL PARALEGAL Work Phone: [facility] 05-09-2022 09:10-0500 Body weight 91.85 kg [place] Ramirez WEB INTERFACE DEVELOPER.TRIAL PARALEGAL Work Phone: [facility] 05-09-2022 09:10-0500 Diastolic blood pressure 81 mm[Hg] Miryam Ramirez WEB INTERFACE DEVELOPER.TRIAL PARALEGAL Work Phone: [facility] 05-09-2022 09:10-0500 Heart rate 89 /min [place] Ramirez WEB INTERFACE DEVELOPER.TRIAL PARALEGAL Work Phone: [facility] 05-09-2022 09:10-0500 SaO2% (BldA) [Mass fraction] 96 % Miryam Ramirez WEB INTERFACE DEVELOPER.TRIAL PARALEGAL Work Phone: [facility] 05-09-2022 09:10-0500 Systolic blood pressure 156 mm[Hg] Miryam Ramirez WEB INTERFACE DEVELOPER.TRIAL PARALEGAL Work Phone: [facility] 11-08-2021 09:24-0400 Body temperature 98.1 [degF] Miryam Hansenenter WEB INTERFACE DEVELOPER.TRIAL PARALEGAL Work Phone: [facility] 11-08-2021 09:24-0400 Body weight 94.12 kg Miryam Ramirez WEB INTERFACE DEVELOPER.TRIAL PARALEGAL Work Phone: [facility] 11-08-2021 09:24-0400 Diastolic blood pressure 92 mm[Hg] Miryam Hansenenter WEB INTERFACE DEVELOPER.TRIAL PARALEGAL Work Phone: [facility] 11-08-2021 09:24-0400 Heart rate 90 /min Miryam Ramirez WEB INTERFACE DEVELOPER.TRIAL PARALEGAL Work Phone: [facility] 11-08-2021 09:24-0400 SaO2% (BldA) [Mass fraction] 95 % Miryam Ramirez WEB INTERFACE DEVELOPER.TRIAL PARALEGAL Work Phone: [facility] 11-08-2021 09:24-0400 Systolic blood pressure 161 mm[Hg] Miryam Hansenenter WEB INTERFACE DEVELOPER.TRIAL PARALEGAL Work Phone: [facility] 10-12-2016 09:42-0400 BMI (Body Mass Index) 34.69 kg/m2 Viridiana Jackson LPN [facility] Work Phone: 10-12-2016 09:42-0400 Body Temperature 98.1 [degF] Viridiana Jackson LPN [facility] Work Phone: 10-12-2016 09:42-0400 BP Diastolic 82 mm[Hg] Viridiana Jackson LPN [facility] Work Phone: 10-12-2016 09:42-0400 BP Systolic 130 mm[Hg] Viridiana Jackson LPN [facility] Work Phone: 10-12-2016 09:42-0400 Height 161.29 cm Viridiana Jackson LPN [facility] Work Phone: 10-12-2016 09:42-0400 Pulse (Heart Rate) 92 /min Viridiana Jackson LPN [facility] Work Phone: 10-12-2016 09:42-0400 Pulse Oximetry 98 % Viridiana Jackson LPN [facility] Work Phone: 10-12-2016 09:42-0400 Respiratory Rate 14 /min Viridiana Jackson LPN [facility] Work Phone: 10-12-2016 09:42-0400 Weight 90.27 kg Viridiana Jackson LPN [facility] Work Phone: 03-17-2016 14:19-0400 Body Temperature 98.2 [degF] Viridiana Jackson LPN [facility] Work Phone: 03-17-2016 14:19-0400 BSA (Body Surface Area) 1.99 m2 Viridiana Jackson LPN [facility] Work Phone: 03-17-2016 14:19-0400 Height 161.29 cm Viridiana Jackson LPN [facility] Work Phone: 03-17-2016 14:19-0400 Weight 95.36 kg Viridiana Jackson LPN [facility] Work Phone: NEGATED: Highlighted [id number] 11:56-0400 Body height 162.56 cm Viki Ziats AT [facility] Work Phone: NEGATED: Highlighted [id number] 11:56-0400 Body height 163 cm Viki Ziats AT [facility] Work Phone: NEGATED: Highlighted [id number] 11:56-0400 Body mass index (BMI) [Ratio] 34.45 kg/m2 Viki Ziats AT [facility] Work Phone: NEGATED: Highlighted [id number] 11:56-0400 Body weight 90.72 kg Viki Ziats AT [facility] Work Phone: NEGATED: Highlighted [id number] 11:56-0400 Body weight 91 kg Viki Lara AT [facility] Work Phone: Encounters Encounter Date Encounter Type Care Provider Facility Start: 06-23-2023 Evaluation and management of inpatient [facility] Facility:[facility] Start: 06-23-2023 Evaluation and management of inpatient [facility] Facility:[facility] Start: 05-15-2023 End: 05-15-2023 ambulatory [facility] Facility:[facility] Start: 05-15-2023 End: 05-15-2023 ambulatory [facility] WEB INTERFACE DEVELOPER.TRIAL PARALEGAL Work Phone: Hematology/Oncology Procedures Date Procedure Procedure Detail Performing Clinician Start: 07-02-2023 Antibody screen [facility]ERSON [facility] ITH Plan of Treatment Date Care Activity Detail Author Start: 04-14-2033 Urine microalbumin profile DTaP,Tdap,Td Vaccine (2 - Td or Tdap) [facility] Start: 02-06-2023 Influenza vaccination INFLUENZA (#1) [facility] Start: 12-22-2022 End: 02-21-2023 Bacteria identified in Urine by Culture URINE CULTURE Microbiology Routine Mixed incontinence Expected: 12/22/2022, Expires: 02/21/2023 [facility] Work Phone: Immunizations Immunization Date Immunization Notes Care Provider Yovani montero 04-12-2012 influenza virus vacc ine, unspecified formulation Miryam Ramirez WEB INTERFACE DEVELOPER.TRIAL PARALEGAL Work Phone: [facility] Payers Date Payer Category Payer Medicare A[employer] MEDICARE A ETNA MEDICARE PPO [id number] 2021-Present [phone] [address] [place] [address] PPO [id number] 2021 Medicare AET[employer] MEDICARE A ETNA MEDICARE PPO [id number] 2021-Present [phone] [address] [place] [address] PPO [id number] 2021 Medicare [id number] 1950 Unknown [id number] 1950 Unknown [id number] Social History Date Type Detail Facility Start: 09-06-2021 End: 09-06-2021 Assertion Unknown if ever smoked [facility] Work Phone: Start: 04-10-2011 Tobacco smoking stat [facility] Never smoked tobacco [facility] Start: 11-08-2021 End: 05-15-2023 Alcohol intake Current drinker of alcohol (finding) [facility] Start: 04-06-2008 History SDOH Alcohol Comment Seldom [facility] Start: 1950 Sex Assigned At Not on file [facility] Start: 10-14-2021 End: 10-24-2021 Exposure to SARS-CoV-2 (event) Not sure [facility] Start: 04-10-2011 Tobacco use and exposure Smokeless tobacco non-user [facility] Start: 11-14-2022 End: 12-22-2022 History of Social function [facility] Start: 11-14-2022 End: 12-22-2022 Tobacco use panel [facility] Adult Depression Screening Assessment 4 [facility] Clinical Notes 11-08-2021 to 05-15-2023 Miryam Ramirez APRN.TRIAL PARALEGAL - 05/15/2023 9:40 AM Iris Ashley MD - 12/22/2022 9:12 AM EDTMiryam Ramirez APRN.TRIAL PARALEGAL - 05/09/2022 9:13 AM Virgilio Ramirez APRN.CNP - 11/08/2021 9:25 AM EDT Note Date & Type Note Facility 05-15-2023 Note HNO ID: [id number] Author: Miryam Ramirez APRN.NAZARIO Service: ? Author Type: Nurse Practitioner Type: Progress Notes Filed: 05/15/2023 12:17 PM Note Text: Chief Complaint Patient presents with: Established Patient HPI: Natalia Leigh is a 72 year old female who presents here today for follow up breast cancer. H/o DX:Right Breast cancer-ER/MA positive pT1b, N0, intermediate risk score on [...] - ICD9: 174.4, V86.0, ICD10: C50.411, Z17.0 ER/MA positive pT1b, N0, intermediate risk score on [...] as necessary for today's visit. Miryam Ramirez APRN.[facility] 05-15-2023 History of Present illness Narrative Chief Complaint Patient presents with: Established Patient HPI: Natalia Leigh is a 72 year old female who presents here today for follow up breast cancer. H/o DX:Right Breast cancer-ER/MA positive pT1b, N0, intermediate risk score on [...] - ICD9: 174.4, V86.0, ICD10: C50.411, Z17.0 ER/MA positive pT1b, N0, intermediate risk score on [...] as necessary for today's visit. Miryam Ramirez APRN.TRIAL PARALEGAL documented in this encounter [facility] 12-22-2022 Note HNO ID: [id number] Author: Iris Ulloa MD Service: ? Author Type: Physician Type: Progress Notes Filed: 12/22/2022 12:33 PM Note Text: Tire Mechanic offered: Patient declines. Natalia is a 72 [...] Multiple0 Live Births0 Comment: One daughter is Network Analyst History LMP: Postmenopausal Age at Menarche: Age at First : Age at Menopause: Network Analyst History Comments: Sexual Activity: Yes; Male Contraception: [...] Procedure Laterality Date BMD APPENDICULAR (ENDOCRIN)_*FL BONE [id number]/98 BX BREAST W/DEVICE 1ST LESION ULTRASOUND GUID [...] RIGHT BREAST LUMPECTOMY PAST SURGICAL HISTORY OF [place] Teeth x 4 PAST SURGICAL HISTORY OF 2020 nerve surgery PAST SURGICAL HISTORY OF 2019 melanoma removed from left leg TONSILLECTOMY AND ADENOIDECTOMY FAMILY HISTORY Problem Relation Age of Onset Heart Mother PASSED FROM AN OR Hypertension Mother Cancer Father PASSED FROM [facility] Alcohol/Drug Father Breast Cancer Sister PASSED Cancer [...] external genitalia normal, normal Bartholin's glands, urethra, Chapman's glands, no vulvar lesions, no cervical lesions, [...] or sooner as needed Iris Ulloa DO [facility] 12-22-2022 History of Present illness Narrative Tire Mechanic offered: Patient declines. Natalia is a 72 [...] Multiple0 Live Births0 Comment: One daughter is Network Analyst History LMP: Postmenopausal Age at Menarche: Age at First : Age at Menopause: Network Analyst History Comments: Sexual Activity: Yes; Male Contraception: [...] Procedure Laterality Date BMD APPENDICULAR (ENDOCRIN)_*FL BONE [id number]/98 BX BREAST W/DEVICE 1ST LESION ULTRASOUND GUID [...] RIGHT BREAST LUMPECTOMY PAST SURGICAL HISTORY OF [place] Teeth x 4 PAST SURGICAL HISTORY OF 2020 nerve surgery PAST SURGICAL HISTORY OF 2019 melanoma removed from left leg TONSILLECTOMY & ADENOIDECTOMY <AGE 10 FAMILY HISTORY Problem Relation Age of Onset Heart Mother PASSED FROM AN OR Hypertension Mother Cancer Father PASSED FROM [facility] Alcohol/Drug Father Breast Cancer Sister PASSED Cancer [...] external genitalia normal, normal Bartholin's glands, urethra, Chapman's glands, no vulvar lesions, no cervical lesions, [...] needed Iris Ulloa, documented in this encounter [facility] 11-14-2022 Note HNO ID: [id number] Author: Miryam Ramirez APRN.TRIAL PARALEGAL Service: ? Author Type: Nurse Practitioner Type: Progress Notes Filed: 11/14/2022 3:29 PM Note Text: Chief Complaint Patient presents with: Established Patient HPI: Natalia Leigh is a 72 year old female who presents here today for follow up breast cancer. H/o DX:Right Breast cancer-ER/MA positive pT1b, N0, intermediate risk score on [...] - ICD9: 174.4, V86.0, ICD10: C50.411, Z17.0 ER/MA positive pT1b, N0, intermediate risk score on Oncotype DX. S/p R mastectomy. Received TC with no delays. - No concerning findings on exam. - Tolerating femara well. - Continue femara. - L mammogram due in August 2022. - Needs BIOFUELS PLANT OPERATIONS ENGINEER appt.-est. care-Urinary incont.-last pelvic exam years ago by Hina Sky. - Follow up in 6 months. - Pt. aware to call office with any questions/concerns. The patient indicates understanding of these issues and agrees with the plan. All documentation from previous visit of 11/08/21-myself was copied and pasted, documentation has been reviewed and edited as necessary for today's visit. Miryam Ramirez APRN.[facility] 05-09-2022 History of Present illness Narrative Chief Complaint Patient presents with: Established Patient HPI: Natalia Leigh is a 71 year old female who presents here today for follow up breast cancer. H/o DX:Right Breast cancer-ER/MA positive pT1b, N0, intermediate risk score on [...] - ICD9: 174.4, V86.0, ICD10: C50.411, Z17.0 ER/MA positive pT1b, N0, intermediate risk score on [...] Miryam Ramirez APRN.NAZARIO documented in this encounter [facility] 11-08-2021 History of Present illness Narrative Chief Complaint Patient presents with: Established Patient HPI: Natalia Leigh is a 71 year old female who presents here today for follow up breast cancer. H/o DX:Right Breast cancer-ER/MA positive pT1b, N0, intermediate risk score on [...] was dx with melanoma-L calf-was followed in [place]-Dr. Deng-DERM. She is followed now by Dr. [...] - ICD9: 174.4, V86.0, ICD10: C50.411, Z17.0 ER/MA positive pT1b, N0, intermediate risk score on [...] Miryam Ramirez APRN.NAZARIO documented in this encounter [facility] Evaluation note There may be informa tion available, but it has not been provided by the sender. [facility] Work Phone: documented in this encounter [facility] Diagnosis Malignant neoplasm of upper-outer quadrant of right breast in female, estrogen receptor positive (HCC)- Primary Encounter for screening mammogram for high-risk patient documented in this encounter [facility] Diagnosis Encounter for gynecological examination (general) (routine) without abnormal findings- Primary Encounter for screening mammogram for breast cancer Mixed incontinence Mixed incontinence urge and stress (male)(female) documented in this encounter [facility] Diagnosis Malignant neoplasm of upper-outer quadrant of right breast in female, estrogen receptor positive (HCC)- Primary documented in this encounter [facility] HospitalInstructionsNo information available.[facility] Work Phone: Reason for referral [...] Miryam Arzate APRN.CNP [address] [place] [address] [facility] [address] [place] [address] Referral ID Status Reason Start Date Expiration Date Visits Requested Visits Authorized [id number] Authorized Auto-Generat ed Referral 05/09/2022 06/08/2023 1 1 [facility] Chief Complaint Chief Complaint Description Start [...] Ulloa MD [address] [place] [address] [facility] [place] [address] [place] [address] Referral ID Status Reason Start Date Expiration Date Visits Requested Visits Authorized [id number] Pending Review Auto-Generat ed Referral 12/22/2022 12/22/2023 1 1 Specialty Diagnoses / Procedures Referred By Contac t Referred To Contact Diagnoses Mixed incontinence Procedures CONSULT TO URO GYNECOLOGY Iris Ulloa MD [address] [facility] [place] [address] Reshma Richard MD [address] [place] [address] Referral ID Status Reason Start Date Expiration Date Visits Requested Visits Authorized [id number] Ref Not Required PCP Requested Referral 12/22/2022 12/22/2023 1 1 Specialty Diagnoses / Procedures Referred By Shruthi calderón Referred To Contact [facility] Diagnoses Encounter for screening mammogram for breast cancer Procedures CARIDAD SCREENING SCREENING MAMMOGRAPHY BI 2-VIEW BREAST INC CAD Iris Ulloa MD [address] [place] [address] [facility] [address] [place] [address] Referral ID Status Reason Start Date Expiration Date Visits Requested Visits Authorized [id number] Pending Review Auto-Generat ed Referral 12/22/2022 01/21/2024 [...] or prosecute any alcohol or drug abuse patient.[facility] the event this information is protected by the Federal Confidentiality of Alcohol and Drug Abuse Patient Records regulations: The Federal rules restrict any use of the information to criminally investigate or prosecute any alcohol or drug abuse patient.[facility] the event this information is protected by the Federal Confidentiality of Alcohol and Drug Abuse Patient Records regulations: The Federal rules restrict any use of the information to criminally investigate or prosecute any alcohol or drug abuse patient.[facility] the event this information is protected by the Federal Confidentiality of Alcohol and Drug Abuse Patient Records regulations: The Federal rules restrict any use of the information to criminally investigate or prosecute any alcohol or drug abuse patient.[facility] Care Teams (unrecognized sec tion and content) Ornamental Metal Erector Apprentice Relationship Specialty Start Date End Date Anderson Nicholas MD PCP - General 04/06/08 Ornamental Metal Erector Apprentice Relationship Specialty Start Date End Date Anderson Nicholas MD PCP - General 04/06/08 Ornamental Metal Erector Apprentice Relationship Specialty Start Date End Date Anderson Nicholas MD PCP - General 04/06/08 INFORMATION SOURCE (unrecogn ized section and content) DATE CREATED AUTHOR AUTHOR'S ORGANAMY ATION 07/04/2023 [facility] FOR RECORDS PERTAINING TO PATIENTS WHO [...] BE BASED ON THE PRIMARY CLINICAL RECORDS. [facility] [email or web address] [facility]. provides no warranty or guarantee of the accuracy or completeness of information in this document.
[2023-07-29] MEDS: levETIRAcetam 500 MG Tablet PO (20:33)
[2023-07-29] MEDS: Senna/Docusate Sodium 1 Tablet 2 TABLET PO (20:33)
[2023-07-29] MEDS: Losartan Potassium 50 MG Tablet PO (20:33)
[2023-07-29] MEDS: Carvedilol 12.5 MG Tablet PO (20:33)
[2023-07-29] MEDS: Atorvastatin Calcium 40 MG Tablet PO (20:33)
[2023-07-29] MEDS: Latanoprost 0.005% 1 Bottle 1 DRP EACH EYE (20:33)
[2023-07-29] MEDS: Na Biphos/Potassium Phosphate PACKET 1 PACKET PO (20:33)
[2023-07-29] MEDS: Mirtazapine 30 MG Tablet PO (20:33)
[2023-07-30] MEDS: Na Biphos/Potassium Phosphate PACKET 1 PACKET PO ×3 (04:51→22:02)
[2023-07-30 04:58] VITALS: BP 114/56; PULSE 74; RESP 18; TEMP 36.9; O2SAT 98
[2023-07-30] MEDS: Carvedilol 12.5 MG Tablet PO ×2 (09:12→17:32)
[2023-07-30] MEDS: Aspirin E.C. 81 MG Tablet PO (09:12)
[2023-07-30] MEDS: Losartan Potassium 50 MG Tablet PO ×2 (09:13→22:02)
[2023-07-30 09:20] VITALS: BP 139/66; PULSE 71
[2023-07-30] MEDS: Polyethylene Glycol 3350 17 GM PACKET PO (09:23)
[2023-07-30] MEDS: levETIRAcetam 500 MG Tablet PO ×2 (09:23→22:03)
[2023-07-30] MEDS: Acetaminophen 325 MG Tablet 650 MG PO (09:23)
[2023-07-30] MEDS: Pantoprazole Sodium 20 MG Tablet PO (09:23)
[2023-07-30] MEDS: Senna/Docusate Sodium 1 Tablet 2 TABLET PO ×2 (09:23→22:06)
[2023-07-30] MEDS: NIFEdipine 30 MG Tablet PO (09:23)
[2023-07-30] MEDS: Magnesium Chloride 64 MG Delay Rel.Tablet 128 MG PO (09:23)
[2023-07-30] MEDS: VILAZODONE HYDROCHLORIDE 10 MG TABLET PO (09:24)
--- NOTE | 2023-07-30 10:28 | EX.PCM.HP.RE ---
HPI - General General Date of Admission: 07/29/23 Date of Service: 07/30/23 Chief Complaint: Debility due to stroke and recent STEMI. HPI Narrative GILBERTO CAMPBELL, is a 72 YO F who was a patient on acute rehab at [facility] being treated for post stroke debility who developed sudden onset chest pain on the evening of 07/25/23. EKG showed sinus rhythm with an acute anterolateral injury pattern. She was diagnosed with a STEMI and taken to the [facility]. Cardiac cath showed mild to moderate diffuse coronary disease. The ejection fraction had decreased to 20 to 25% with wall motion abnormalities and she was diagnosed with Takotsubo's cardiomyopathy. There was mild mitral regurgitation and no significant aortic stenosis. She was admitted to the progressive care unit at [facility]. Cardiology changed metoprolol to Coreg. Dr. Collins's recommended discontinuation of Procardia but, this medication is still on the med list at the time of transfer to rehab. On 07/28/23 she became suddenly unresponsive and a stroke alert was called. CTB showed the known right inferior division infarct of the middle cerebral artery on the right. Consultation was obtained with teleneurology. A MRI of the head without contrast was recommended. The MRI was done on 07/28/2023 and showed subacute cortical-based ischemic infarction with early cortical laminar necrosis and without hemorrhagic transformation along the right superior temporal gyrus, the posterior right medial temporal gyrus, the right supramarginal gyrus, the right angular gyrus and the right lateral occipital gyrus. The radiologist felt the finding were new since MRI on 07/20/23. On the teleneurology follow up on 07/29/23 the neurologist felt the changes were due to the initial stroke that occurred in June 2023. He had no additional recommendations. No additional W/U was recommended. the 30 day event monitor is in progress. Pt returned to baseline Sherri was transferred back to the acute inpt rehab unit at [facility] on 07/29/23 to resume 3 hours of therapy daily to restore function/independence at or near her level prior to the ischemic stroke, SAH and TBI (due to a fall). She is to have a repeat ECHO in 6 weeks and she will follow up with cardiology in 2 weeks. Sherri denies CP, SOB, palpitations, lightheadedness, N/V/abd pain, dysuria and calf pain. She denies cephalgia. Afebrile VSS - BP is elevated > 130/80. Heart rate is within normal limits. Maintaining appropriate oxygen saturation on RA while awake. Oral intake - FOOD poor to fair FLUIDS very poor intake Discussed with nursing -bladder scan this a.m. showed 574 cc of urine in the bladder. Last night the bladder scan showed 5. She has been a retainer in the past and had a Donato early in her admission to rehab. She had been doing well except for the bladder scan first thing in the AM. Was recently treated with 5 days of Levaquin for a Proteus mirabilis UTI. Aspirin 81 mg was added to her drug regimen per recommendation from [facility]. Medication list reviewed. Vraylar had been added to her drug regimen prior to the STEMI for treatment resistant depression. It was restarted when she returned to rehab yesterday at 1.5 mg on M,W, . She had 1 dose of Vraylar prior to the STEMI. The EMR from her stay on PCU was personally reviewed. All lab from 07/28/23 was reviewed. The AEC is down to 7,345 from > 19,000 prior to DC to PCU. Creatinine was up to 1.44 on 07/28/2023 and was rechecked on 07/29/2023 following hydration and was down to 1.19. Baseline ranged from 0.84-0.99 while on rehab. Calcium corrected for hypoalbuminemia on 07/29/2023 was mildly elevated at 10.4. Sherri denies lightheadedness, CP, SOB at rest, orthopnea, N/V/abd pain, dysuria, calf pain, palpitations. She c/o having no appetite. She was somewhat irritable this AM but, later apologized for this to the OT. [facility] Medical History (Updated 07/31/23 @ 14:[address] Tracey Chacon DO) Acute left hemiparesis Depression Eosinophilia, unspecified Gastric ulcer GERD (gastroesophageal reflux disease) Glaucoma Hemianopia of left eye History of breast cancer HTN (hypertension) Left hand weakness Left posterior interosseous nerve syndrome Lesion of right radial nerve Major depressive disorder, recurrent episode, moderate Obesity (BMI 30.0-34.9) Osteoarthritis Osteoporosis Sleep apnea STEMI (ST elevation myocardial infarction) Stroke/cerebrovascular accident Tendonitis Ulnar neuropathy at elbow of left upper extremity Home Medications calcium carbonate 600 mg-vitamin D3 20 mcg (800 unit) tablet 1 tablet PO DAILY@0800 supplement 08/10/14 [History Last Taken Unknown] latanoprost 0.005 % eye drops 1 drp EACH EYE QHS Eye drops 08/10/14 [History Last Taken 07/28/23] acetaminophen 650 mg tablet,extended release (Tylenol Arthritis Pain) 650 mg PO DAILY pain 08/29/20 [History Last Taken 07/29/23] letrozole 2.5 mg tablet 2.5 mg PO DAILY Breast cancer 08/29/20 [History Last Taken 07/29/23] magnesium 250 mg tablet 250 mg PO DAILY supplement 08/29/20 [History Last Taken Unknown] vilazodone 20 mg tablet 10 mg PO DAILY Antidepressant 08/29/20 [History Last Taken 07/29/23] omeprazole 20 mg capsule,delayed release 20 mg PO DAILY GERD 08/30/20 [History Last Taken 07/29/23] alendronate 70 mg tablet 70 mg PO Q7D Bone health 07/06/23 [History Last Taken Unknown] mirtazapine 30 mg tablet 30 mg PO QHS Sleep 07/06/23 [History Last Taken 07/28/23] levetiracetam 500 mg tablet (Keppra) 500 mg PO BID seizure 07/26/23 [History Last Taken Unknown] nifedipine 30 mg tablet,extended release 24 hr (Procardia XL) 30 mg PO DAILY blood pressure 07/26/23 [History Last Taken Unknown] polyethylene glycol 3350 17 gram/dose oral powder (Miralax) 17 g PO DAILY constipation 07/26/23 [History Last Taken Unknown] aspirin 81 mg tablet,delayed release 81 mg PO BREAKFAST heart health #0 tabs 07/29/23 [Rx Last Taken 07/29/23] atorvastatin 40 mg tablet 40 mg PO QHS cholesterol #0 tabs 07/29/23 [Rx Last Taken 07/28/23] cariprazine 1.5 mg capsule (Vraylar) 1.5 mg PO QODAY . 07/29/23 [History Last Taken Unknown] carvedilol 12.5 mg tablet 12.5 mg PO BID blood pressure #0 tabs 07/29/23 [Rx Last Taken 07/29/23] losartan 50 mg tablet 50 mg PO BID blood pressure #0 tabs 07/29/23 [Rx Last Taken 07/29/23] nitroglycerin 0.4 mg sublingual tablet 0.4 mg sublingual Q5M PRN Cardiac/Chest Pain #0 tabs 07/29/23 [Rx Last Taken Unknown] potassium, sodium phosphates 280 mg-160 mg-250 mg oral powder packet 1 packet PO TID supplement 2 days #6 ea 07/29/23 [Rx Last Taken 07/29/23] Allergy/AdvReac Type Severity Reaction Status Date / Time Penicillins [PCN] Allergy Severe Anaphylaxis Verified 06/23/23 07:41 Family History Aunt Cancer Sister Cancer Surgical History History of lumpectomy of right breast History of right mastectomy Social History household members: spouse housing: other details: One-story house with a basement. Laundry is upstairs number of children: 1 current occupational status: retired Smoking Status: Never smoker Electronic Cigarette Use: not used second hand exposure: No alcohol intake: current alcohol intake frequency: holidays/special occasions only substance use type: does not use ROS Constitutional Constitutional: Reports anorexia, fatigue and weakness; Denies change in weight, chills, fever(s) or night sweats Eyes Eyes: Reports change in vision left (Partial hemianopia) and loss of vision; Denies blurry vision, discharge from eye(s), double vision or eye pain ENT HEENT: Denies abnormal hearing, dysphagia, headache(s), hearing loss, nasal congestion or sore throat Cardiovascular Cardiovascular: Denies chest pain, dyspnea on exertion, edema, lightheadedness, orthopnea, palpitations, paroxysmal nocturnal dyspnea or syncope Respiratory/Chest Respiratory/Chest: Denies cough, dyspnea, shortness of breath at rest, shortness of breath with exertion or wheezing Gastrointestinal Gastrointestinal: Denies abdominal pain, constipation, diarrhea, dyspepsia, hematemesis, hematochezia, nausea or vomiting Genitourinary Genitourinary: Denies dysuria, hematuria, nocturia, urinary frequency, urinary hesitancy, urinary incontinence or urinary urgency Musculoskeletal Musculoskeletal: Denies back pain, joint pain, joint swelling or neck pain Integumentary Integumentary: Denies jaundice, rash or wounds Neurologic Neurologic: Reports confusion, focal weakness and paresthesias; Denies disequilibrium, dizziness, headache(s), seizures or tremor(s) Psychiatric Psychiatric: Reports anxiety and depression; Denies homicidal ideation or suicidal ideation Endocrine Endocrinology: Denies change in body appearance, polydipsia or polyuria Hematologic/Lymphatic Hematologic/Lymphatic: Reports easy bleeding and easy bruising; Denies lymphadenopathy Allergic/Immunologic Allergic/Immunologic: Denies rhinitis, eczemia or asthma Vital Signs Vital Signs Vital Signs: 07/29/23 17:49 07/29/23 19:03 07/29/23 20:30 Temperature 97.8 F 97.8 F Temperature Source Temporal Temporal Pulse Rate 70 70 Pulse Strength Normal (2+) Respiratory Rate 17 17 Respiratory Effort Respiratory Depth Respiratory Pattern Blood Pressure 154/84 H 154/84 H Blood Pressure Mean 107 107 Blood Pressure Source Monitor Monitor Blood Pressure Position Semi-Fowlers Semi-Fowlers Blood Pressure Location Left Arm Left Leg Pulse Ox 95 99 Oxygen Delivery Method Room Air Room Air 07/29/23 20:30 07/30/23 04:58 07/30/23 10:00 Temperature 98.4 F Temperature Source Temporal Pulse Rate 74 Pulse Strength Normal (2+) Respiratory Rate 18 Respiratory Effort Normal Non-Labored Respiratory Depth Normal Respiratory Pattern Normal Blood Pressure 114/56 L Blood Pressure Mean 75 Blood Pressure Source Monitor Blood Pressure Position Semi-Fowlers Blood Pressure Location Right Forearm Pulse Ox 98 Oxygen Delivery Method Room Air Room Air 07/30/23 09:20 Temperature Temperature Source Pulse Rate 71 Pulse Strength Respiratory Rate Respiratory Effort Respiratory Depth Respiratory Pattern Blood Pressure 139/66 H Blood Pressure Mean 90 Blood Pressure Source Monitor Blood Pressure Position Semi-Fowlers Blood Pressure Location Left Leg Pulse Ox Oxygen Delivery Method Weight Weight: 185 lb 6.54 oz Body Mass Index (BMI) 31.8 Indicators for Scoring Admitted with or Primary Diagnosis of CVA/Stroke: Yes Hx of CVA/Stroke: Yes Modified [place] Score MRS Score at time of Evaluation: 4-Moderate/severe disability NIHSS NIHSS 1a. Level of Consciousness: Alert; keenly responsive 1b. LOC Questions: Answers BOTH questions correctly. 1c. LOC Commands: Performs both tasks correctly. 2. Best Gaze: Normal 3. Visual: Partial hemianopia 4. Facial Palsy: Minor paralysis (flattened nasolabial fold, asymmetry on smiling) 5a. Left Arm: Drift; arm drifts downward but doesn?t hit the bed 5b. Right Arm: No drift; arm holds 90 (or 45) degrees for full 10 seconds 6a. Left Leg: Drift; leg falls by the end of 5-seconds, but does not hit bed 6b. Right Leg: No drift; leg holds 30-degree position for full 5 seconds 7. Limb Ataxia: Absent 8. Sensory: Xlop-ct-naccchzu sensory loss; 9. Best Language: No aphasia; normal 10. Dysarthria: Normal 11. Extinction and Inattention: No abnormality Total: 5 Stroke Questions Stroke Team Activated: No Physical Exam Const alert, oriented x3 and no apparent distress General Appearance: cooperative Orientation / Consciousness: Negative for confused HEENT head/scalp atraumatic Mouth: dry mucous membranes Eyes PERRL and EOMs intact bilaterally Neck supple, No nodes and No no carotid bruits General: trachea midline Resp normal respiratory effort, normal air movement and clear to auscultation bilaterally Resp Narrative: No conversational dyspnea. Effort and Inspection: Negative for tachypneic Cardio regular rate, regular rhythm, no murmurs, no rub and no gallops Cardio Narrative: Event monitor is present on the chest. GI normal to inspection, nondistended, normoactive bowel sounds, soft to palpation and non-tender GI Narrative: No guarding with palpation Extremity no calf tenderness General Extremity: Negative for clubbing, cyanosis or edema Skin General Skin Exam: no breakdown Rashes: no rashes Neuro Neuro Narrative: See NIHSS Speech: speech normal Psych affect normal Appearance: appropriate Attitude: No agitated Mood & Affect: Negative for flat affect Thought Content: No suicidality and No hallucination(s) Assessment & Plan Assessment/Plan (1) Debility: (2) Ischemic cerebrovascular accident (CVA): (3) Subarachnoid hemorrhage: (4) Closed TBI (traumatic brain injury): QUALIFIERS: Encounter type: subsequent encounter Loss of consciousness presence/duration: unknown LOC status Qualified Code(s): S06.9XAD - Unspecified intracranial injury with loss of consciousness status unknown, subsequent encounter PLAN: Due to a fall when she had the initial stroke in June (5) Obstructive sleep apnea of adult: PLAN: Needs a overnight sleep study at DC form Rehab. Using O2 at night with her. (6) STEMI (ST elevation myocardial infarction): QUALIFIERS: Involved coronary artery: unspecified coronary artery Qualified Code(s): I21.3 - ST elevation (STEMI) myocardial infarction of unspecified site PLAN: Mild to moderate diffuse CAD on cardiac cath. No intervention required. (7) Takotsubo cardiomyopathy: (8) Recurrent major depression resistant to treatment: PLAN: Plan PLAN PT for gait stability OT for ADL's ST for evaluation Analgesics as needed Bowel protocol Fall precautions Assess for Anxiety/Depression - restart Vraylar for tx resistant depression Continue Remeron. GI prophylaxis with pantoprazole DVT prophylaxis with Lovenox Follow up with PCP, cardiology, neurology, psychiatry following DC from [facility] Most recent lab was personally reviewed. Charges/Coding Visit Charges Inpatient E&M: 73278 Init Hosp L3
--- NOTE | 2023-07-30 10:39 | REHABEVAL_ITS ---
Admission Information Primary Diagnosis:: Debility due to Stroke followed by STEMI and Takotsubo's CM. Status Changes from Prescreening?: No changes Identified Actual Problem List:: Skin Intergrity, Cognitve Impr/Memory Loss, Depression, Mobility Impaired, Self Care Deficit, BP, Hypertension and Alteration-Leisure Activ. Potential Problem List:: DVT, Bleeding, Infection, UTI, Aspiration, Falls, Skin Integrity and Depression Risk of Complications DVT: LMWH and ALCIDES Hose Bleeding: Monitor Lab Values, Nursing to Teach Precautions for anti-coagulation therapy., Wound, if applicable, to be assessed every shift. and Stroke patients assessed for lethargy or change in status. Infection: Clinical Staff to Monitor for S/S of infection: and S/S of infection include fever, redness, warmth, etc. Urinary Tract Infection: Monitor for frequency, burning, discomfort, or incontinence. and Nursing will obtain urine sample for urinalysis and C&S when ordered. Aspiration: Clinical staff will monitor for coughing, drooling, congestion., Speech will evaluate swallowing and dsyphasia. and Nursing will monitor patient swallowing during meals. Falls: Patient will be evaluated for Fall Precautions and Patient will be placed on Fall Precautions as indicated per protocol. Skin Breakdown: Nursing will assess skin daily using assessment tool. and Nursing will place on Skin Breakdown Precautions as indicated. Pain: Clinical staff will assess patient's pain level per protocol., Medications will be given, if needed, and the pain level reassessed. and Other methods: Massage, distraction, decrease stimulus, etc. used PRN. Plan of Care Patient requires physician specializing in physical medicine and rehab oversight to provide close medical supervision of rehab issues including: Pain Management, Sleep Problems, Bowel and Bladder, Medical and co-morbidity Management, DVT prophylaxis, Rehabilitation Leadership and Coordination of treatment team Patient needs Physical Therapy: For a minimum of 1 hour and At least 5 out of 7 days Patient needs Physical Therapy to improve:: Mobility, Strengthening, Transfers, Stretching, ROM, Endurance, Stairs, Gait and Balance Patient needs Occupational Therapy: For a minimum of 1 hour and At least 5 out of 7 days Patient needs Occupational Therapy to improve ADL's incl.: Eating, Grooming, Bathing, Dressing, Toileting, Toilet transfers, Community Reintegration, Higher functioning activities, Household tasks, Adaptive Equipment, Splinting and Other activities as determined Patient requires speech therapy: For a minimum of 1 hour and At least 5 out of 7 days Patient requires speech therapy for: Swallowing, Cognition, Language Skills and Compensatory Strategies Patient requires 24/ Rehabilitation Nursing for: Pain Issues, Identifying and preventing risk factors, Monitoring and reporting current medical conditions, Assisting with ambulation, transfer, and all ADL's, Teaching patients about disease process and medications, Family teaching, Providing safe environment, Bowel and Bladder Issues, Skin integrity and Medication Management Patient needs Java Swing Developer/ Case Management for: Discharge Planning, Arranging Home Equipment or Services and Family Interventions Patient needs Dietary and Nutrition Services for: Adequate Nutrition, Nutritional Supplements and Nutritional Education Goals Goals Patient will remain: free from falls Patient will perform eating at: MOD I level of assist. Patient will perform bed mobility at: - (Contact-guard assist) Patient will complete transfers from bed to chair at: - (Contact-guard assist/min assist x 1) Patient will ambulate: - (10 feet with minimal assistance) Patient will propel wheelchair: - (200 feet on various surfaces at standby assist) Patient will complete upper body dressing at: - (Min assist of 1) Patient will complete lower body dressing at: - (Min assist) Patient will complete toilet transfer at: - (Min assist) Patient will complete toileting at: - (Min assist) Patient will perform bathing at: - (Min assist) Patient will perform Tub/Shower transfer at: - (Min assist) Patient will complete grooming at: - (Supervision) Patient will achieve: - (Not a goal at this time) Patient will have pain level of: of 3 or less Patient's skin will: remain intact Patient will receive: adequate nutrition. Discharge Planning Pt Prognosis for Sig. Practical Improv. w/in Reasonable Time: Good Estimated Length of stay (days): 28 Anticipated D/C Destination: [facility] Was Preadmission Assessment Accurate?: Yes
[2023-07-30 14:26] VITALS: BP 100/76; BP 119/94; BP 155/99; PULSE 73; PULSE 77; PULSE 83
[2023-07-30 17:00] VITALS: BP 121/49; PULSE 57; RESP 16; TEMP 36.9; O2SAT 97
[2023-07-30 17:20] VITALS: BP 124/62; PULSE 74
[2023-07-30] MEDS: Ensure Plus High Protein 120 ML LIQUID PO (17:33)
[2023-07-30] MEDS: 0.9% Saline Lock 10 ML Syringe IV ×2 (17:54→21:59)
[2023-07-30 22:00] VITALS: BP 118/57; PULSE 72; RESP 17; TEMP 36.4; O2SAT 94
[2023-07-30] MEDS: Latanoprost 0.005% 1 Bottle 1 DRP EACH EYE (22:01)
[2023-07-30] MEDS: Atorvastatin Calcium 40 MG Tablet PO (22:03)
[2023-07-30] MEDS: Mirtazapine 30 MG Tablet PO (22:03)
[2023-07-31 06:00] VITALS: BMI 31.9
[2023-07-31 06:41] VITALS: O2SAT 93
[2023-07-31 08:08] VITALS: BP 153/77; PULSE 81; RESP 18; TEMP 36.3; O2SAT 95
[2023-07-31] MEDS: Losartan Potassium 50 MG Tablet PO ×2 (08:15→22:50)
[2023-07-31] MEDS: Carvedilol 12.5 MG Tablet PO ×2 (08:15→17:09)
[2023-07-31] MEDS: Aspirin E.C. 81 MG Tablet PO (08:15)
[2023-07-31] MEDS: levETIRAcetam 500 MG Tablet PO ×2 (08:16→17:09)
[2023-07-31] MEDS: VILAZODONE HYDROCHLORIDE 10 MG TABLET PO (08:17)
[2023-07-31] MEDS: NIFEdipine 30 MG Tablet PO (08:17)
[2023-07-31] MEDS: Acetaminophen 325 MG Tablet 650 MG PO (08:17)
[2023-07-31] MEDS: Polyethylene Glycol 3350 17 GM PACKET PO (08:17)
[2023-07-31] MEDS: Pantoprazole Sodium 20 MG Tablet PO (08:17)
[2023-07-31] MEDS: CARIPRAZINE HCL 1.5 MG CAPSULE PO (08:26)
[2023-07-31] MEDS: Haloperidol Lactate 5 MG/ML Vial 2 MG IM (08:28)
--- NOTE | 2023-07-31 09:57 | EKG12_ITS ---
Test Reason : Blood Pressure : / mmHG Vent. Rate : 083 BPM Atrial Rate : 083 BPM P-R Int : 190 ms QRS Dur : 138 ms QT Int : 416 ms P-R-T Axes : 032 -59 074 degrees QTc Int : 488 ms Sinus rhythm with Fusion complexes Left axis deviation Left bundle branch block Abnormal ECG When compared with ECG of 28-JUL-2023 15:54, Fusion complexes are now Present Left bundle branch block is now Present Minimal criteria for Anteroseptal infarct are no longer Present Criteria for Inferior infarct are no longer Present Confirmed by TRACY DUBOSE, DERIC ([id number]), sound editor FILIPE CORTEZ ([id number]) on 07/31/2023 1:10:50 PM Referred By: KASSY Confirmed By:DERIC MOLINA MD
[2023-07-31 10:34] LABS: Bacteria 0 SEEN /hpf (None Seen); Mucous, Urine 0 SEEN /hpf (<or=2+); Red Blood Cells-Urine 0 SEEN /hpf (0-5); Squamous Epithelial Cells - UA 0 SEEN /hpf (5-10); White Blood Cells 0 SEEN /hpf (0-5)
[2023-07-31 10:36] LABS: Color, Urine Yellow (Yellow); Glucose, Dipstick Normal (Normal); Ketone-Dipstick Negative (Negative); Leukocyte Esterase-Dipstick Negative /ul (Negative); Nitrite-Dipstick Negative (Negative); Occult Blood-Urine Negative /ul (Negative); Protein-Dipstick Negative (Negative); Urine Bilirubin Dipstick Negative (Negative); Urine Clarity Clear (Clear); Urine Urobilinogen Normal (Normal); Urine pH 6.5 (5.0 - 8.0)
--- NOTE | 2023-07-31 11:06 | PN_ITS ---
Subjective Subjective Afebrile VSS-the blood pressure has been well-controlled but the systolic was mildly increased at 153 this morning and I suspect that this is secondary to agitation. Heart rate is within normal limits. Orthostatics were negative yesterday. Maintaining appropriate oxygen saturation on RA Oral intake - FOOD poor FLUIDS poor to fair Discussed with nursing - Very agitated last night and this AM. Disoriented, paranoid. Not able to be reasoned with. Was upset when nursing would not give her her cell phone to call her attorney lawyer and her dtr in the middle of the night. She had 2 mg of Haldol this morning and she now is able to tell me it is Thursday. She also was able to tell me my name. She is calm now and appropriate. Able to follow commands. She is sleepy now. Not tearful at present. Reviewed the THERAPY notes Medication list reviewed. She had a straight cath done today and it showed 0 WBCs, 0 RBCs and no bacteria. It was nitrite negative. She recently finished a course of Levaquin for a proteus Mirabilis UTI. I reviewed the documentation from her admission to [facility] again today and Sherri had a witnessed focal seizure at [facility] with Left gaze and head diversion. She was started on Keppra. The documentation does not say if a EEG was done at that time. Objective Data Objective Data Vital Signs: Vital Signs Temp Pulse Resp BP Pulse Ox O2 Del Method 97.4 F L 81 18 153/77 H 95 Room Air 07/31/23 08:08 07/31/23 08:08 07/31/23 08:08 07/31/23 08:08 07/31/23 08:08 07/31/23 08:08 Oxygen Delivery Method Room Air Weight: 185 lb 6.54 oz Body Mass Index (BMI) 31.8 Intake & Output: Intake and Output for Last 24 Hours 07/29/23 07/30/23 07/31/23 23:59 23:59 23:59 Intake Total 720 / 720 500 / 500 Output Total 300 / 300 790 / 790 800 / 800 Balance -300 / -300 -70 / -70 -300 / -300 Lab / Micro Data Labs: Laboratory Results - last 24 hr 07/31/23 10:20: Urine Color Yellow, Urine Clarity Clear, Urine pH 6.5, Ur Specific [place] 1.010, Urine Protein Negative, Urine Glucose (UA) Normal, Urine Ketones Negative, Urine Occult Blood Negative, Urine Nitrite Negative, Urine Bilirubin Negative, Urine Urobilinogen Normal, Ur Leukocyte Esterase Negative, Urine RBC 0 SEEN, Urine WBC 0 SEEN, Ur Squamous Epith Cells 0 SEEN, Urine Bacteria 0 SEEN, Urine Mucus 0 SEEN Physical Exam Const Constitutional Narrative: Drowsy but, currently appropriate. Cooperative with me. Does not appear to be in any pain. HEENT head/scalp atraumatic Mouth: dry mucous membranes Resp normal respiratory effort and clear to auscultation bilaterally Resp Narrative: She is able to lie flat in bed with no increase in respiratory rate and no labored breathing. She denies shortness of breath. Effort and Inspection: Negative for tachypneic or labored Cardio regular rate, regular rhythm and no gallops Cardio Narrative: Occasional early beat. GI normal to inspection, nondistended, normoactive bowel sounds, soft to palpation and non-tender GI Narrative: The abdomen is soft and she has no guarding with palpation. Bowel sounds were mildly hypoactive. Extremity no calf tenderness General Extremity: Negative for edema Skin General Skin Exam: no breakdown Rashes: no rashes Neuro Neuro Narrative: Minimal facial droop. Able to lift the LUE and the LLE off the bed. Still having some L side neglect. When I ask her to lift her left arm or leg she consistently will lift the R side. When I than ask her to lift the other side she will. Psych Psych Narrative: Periods of agitation are sudden and irregular. No seizure activity/ tremors noted. Between episodes she is cooperative and appropriate. Appearance: appropriate Assessment & Plan Assessment/Plan (1) Episodic altered awareness: (2) History of right MCA stroke: (3) Closed TBI (traumatic brain injury): QUALIFIERS: Encounter type: subsequent encounter Loss of consciousness presence/duration: unknown LOC status Qualified Code(s): S06.9XAD - Unspecified intracranial injury with loss of consciousness status unknown, subsequent encounter (4) Subarachnoid hemorrhage: (5) Ischemic cerebrovascular accident (CVA): (6) STEMI (ST elevation myocardial infarction): (7) Takotsubo cardiomyopathy: (8) Urine retention: PLAN: This is likely multifactorial. CVA likely caused some urine retention but, I suspect the Remeron associated anticholinergic activity also plays a part in this since it is now occuring primarily in the AM....she gets the Remeron at HS. PLAN: Plan 1. Continue therapy 2. I am not convinced she is having agitation associated with psychiatric illness. She has an episode and then she returns back to baseline and is sweet polite, pleasant Sherri again and is totally appropriate. I am concerned she may behaving temporal lobe seizures. Following the EEG will likely reconsult [facility] neurology to discuss the results. 3. DC Vibryd 4. Continue Vraylar for treatment resistant depression and increase the dose to 1.5 mg daily. 5. After the EEG has been done consider increasing the Keppra to 750 mg BID while results are pending. 6. DC the neutraphos.....she can not tolerate the taste. Recheck a DERIK, phos and an HH in the AM Charges/Coding Visit Charges Inpatient E&M: 48215 Subs Hosp L2
[2023-07-31] MEDS: Ensure Plus High Protein 120 ML LIQUID PO ×3 (12:51→22:52)
[2023-07-31] MEDS: Senna/Docusate Sodium 1 Tablet 2 TABLET PO ×2 (12:52→22:51)
[2023-07-31] MEDS: Magnesium Chloride 64 MG Delay Rel.Tablet 128 MG PO (12:52)
[2023-07-31] MEDS: 0.9% Saline Lock 10 ML Syringe IV ×2 (17:09→22:53)
[2023-07-31] MEDS: Latanoprost 0.005% 1 Bottle 1 DRP EACH EYE (22:51)
[2023-07-31] MEDS: levETIRAcetam 750 MG Tablet PO (22:51)
[2023-07-31] MEDS: Atorvastatin Calcium 40 MG Tablet PO (22:51)
[2023-07-31] MEDS: Mirtazapine 30 MG Tablet PO (22:53)
[2023-07-31 23:00] VITALS: BP 136/65; PULSE 74; RESP 17; TEMP 36.6; O2SAT 96
[2023-08-01 05:32] VITALS: BMI 32.2
[2023-08-01 05:59] LABS: Bedside Glucose 84 mg/dL (74-106)
[2023-08-01 08:09] VITALS: BP 122/58; PULSE 73; RESP 16; TEMP 37; O2SAT 94
[2023-08-01 08:38] LABS: Hematocrit 33.3 % (37-47); Hemoglobin 10.5 g/dL (12.0-15.0)
[2023-08-01 08:52] LABS: Anion Gap 2 (5-15); BUN 16 mg/dL (7-18); BUN/Creat Ratio 18.5 RATIO (10-20); Calcium,Total 9.9 mg/dL (8.5-10.1); Chloride 115 mmol/L (98-107); Creatinine, Serum 0.87 mg/dL (0.55-1.02); EST Glomerular Filtration Rate 68 mL/min (>60); Est Glom Filt Rate - Afr Amer 82 mL/min (>60); Estimated Creatinine Clearance 60.09 ml/min; Glucose 89 mg/dL (74-106); Phosphorus 2.9 mg/dL (2.5-4.9); Potassium 4.1 mmol/L (3.5-5.1); Sodium Level 143 mmol/L (136-145)
[2023-08-01 09:09] VITALS: O2SAT 93
[2023-08-01] MEDS: NIFEdipine 30 MG Tablet PO (09:39)
[2023-08-01] MEDS: Pantoprazole Sodium 20 MG Tablet PO (09:39)
[2023-08-01] MEDS: Acetaminophen 325 MG Tablet 650 MG PO (09:40)
[2023-08-01] MEDS: Carvedilol 12.5 MG Tablet PO ×2 (09:40→17:33)
[2023-08-01] MEDS: Senna/Docusate Sodium 1 Tablet 2 TABLET PO (09:40)
[2023-08-01] MEDS: Losartan Potassium 50 MG Tablet PO ×2 (09:40→21:50)
[2023-08-01] MEDS: Polyethylene Glycol 3350 17 GM PACKET PO (09:42)
[2023-08-01] MEDS: CARIPRAZINE HCL 1.5 MG CAPSULE PO (09:42)
[2023-08-01] MEDS: Magnesium Chloride 64 MG Delay Rel.Tablet 128 MG PO (09:43)
[2023-08-01] MEDS: Ensure Plus High Protein 120 ML LIQUID PO (09:44)
[2023-08-01] MEDS: Aspirin E.C. 81 MG Tablet PO (09:44)
[2023-08-01] MEDS: levETIRAcetam 750 MG Tablet PO ×2 (09:44→21:50)
[2023-08-01] MEDS: Enoxaparin 40 MG/0.4 ML Syringe SC (11:49)
[2023-08-01 13:04] VITALS: BP 138/58; PULSE 65; TEMP 37; O2SAT 96
[2023-08-01 19:35] VITALS: O2SAT 99
[2023-08-01 20:00] VITALS: BP 116/48; PULSE 74; RESP 16; TEMP 36.8; O2SAT 99
[2023-08-01] MEDS: Latanoprost 0.005% 1 Bottle 1 DRP EACH EYE (21:48)
[2023-08-01] MEDS: Atorvastatin Calcium 40 MG Tablet PO (21:50)
[2023-08-01] MEDS: Mirtazapine 30 MG Tablet PO (21:50)
[2023-08-02] MEDS: Lorazepam 2 MG/ML WCH Syringe 1 MG IV ×2 (02:29→14:26)
--- NOTE | 2023-08-02 02:34 | NURSING ---
Patient's bed alarm going off, pt sitting sideways on the bed, states that she is leaving and we can't stop her. Sitting with feet hanging off one side of the bed and head hanging on the other side and states don't even try to stop me, I know where I need to go. Asking to go down the road to my son's house. He has a big truck, and he'll be able to take me home. Also keeps talking about her and how he's a hard man, I wouldn't trust him to give you food if you know what's good for you. Pt disoriented and unable to reorient her to time or place. Becoming more agitated and trying to climb out of bed, medicated with Ativan per PRN order. Blood sugar checked 93. Vitals WNL. Bladder scanned for 260ml. Pt insistent that she does not need to void, refusing to try. Assisted back to bed, attends changed and repositioned in bed. ADRIANA Oliveira sitting at bedside, Pt becoming more calm.
[2023-08-02 03:00] VITALS: BP 145/57; PULSE 88; RESP 18; TEMP 36.5; O2SAT 98
[2023-08-02 03:16] LABS: Bedside Glucose 93 mg/dL (74-106)
[2023-08-02 06:55] VITALS: O2SAT 98
--- NOTE | 2023-08-02 07:19 | NURSING ---
Patient sleeping since 514, snores occasionally, pt not awakened at this time, meds not given at this time, reported to day shift RN to give.
[2023-08-02 08:31] VITALS: BMI 32.2
[2023-08-02 08:32] VITALS: BP 115/48; PULSE 83; RESP 18; TEMP 36.6; O2SAT 97
[2023-08-02] MEDS: NIFEdipine 30 MG Tablet PO (09:12)
[2023-08-02] MEDS: Senna/Docusate Sodium 1 Tablet 2 TABLET PO (09:12)
[2023-08-02] MEDS: Pantoprazole Sodium 20 MG Tablet PO (09:12)
[2023-08-02] MEDS: Acetaminophen 325 MG Tablet 650 MG PO (09:12)
[2023-08-02] MEDS: levETIRAcetam 750 MG Tablet PO ×2 (09:13→21:16)
[2023-08-02] MEDS: Aspirin E.C. 81 MG Tablet PO (09:13)
[2023-08-02] MEDS: Magnesium Chloride 64 MG Delay Rel.Tablet 128 MG PO (09:13)
[2023-08-02] MEDS: Losartan Potassium 50 MG Tablet PO ×2 (09:13→21:21)
[2023-08-02] MEDS: Alendronate Sodium 70 MG Tablet PO (09:13)
[2023-08-02] MEDS: Carvedilol 12.5 MG Tablet PO ×2 (09:13→16:54)
[2023-08-02] MEDS: Polyethylene Glycol 3350 17 GM PACKET PO (09:13)
[2023-08-02] MEDS: CARIPRAZINE HCL 1.5 MG CAPSULE PO (09:14)
--- NOTE | 2023-08-02 09:39 | PN_ITS ---
Subjective Subjective Afebrile VSS Maintaining appropriate oxygen saturation on RA Oral intake - FOOD poor FLUIDS poor Discussed with nursing -confused, frequently agitated, requiring a sitter. Reviewed the THERAPY notes Medication list reviewed. No report from the EEG done Thursday yet. Most recent lab was personally reviewed. Hemoglobin is 10.5, down from 11.6 on 07/28/2023. Sodium is normal at 143 and the potassium is stable at 4.1. BUN is 16 with a creatinine of 0.87, down from 1.19 on 07/29/2023. She became very agitated again this AM. She is fixated on people in her life dying. she thinks that her pfmycr-up-lavd and she needs Ray to come in and take her to the . She is bringing up her son's and the baby she lost. she is wanting to call one of her friends whose mother is dying in a chcf. She is also fixated on her cell phone and thinks her family changed out her phone so that she is unable to use this new phone. she wants her dtr to take her out of here and wants her to take care of her at home. I am unable to reason with her. She received a dose of Haldol and after 20-30 minutes she was much calmer. I spoke with Katie and she tells me that her mother never had any counselling after he son suddenly at age 28. she has had a lot of antidepressants and no psychotherapy. All of this is now resurfacing since the Stroke, now followed by STEMI and Takotsubo's CM. She has some insight into why she can not leave the hospital and knows that she needs to go to a SNF after rehab for additional therapy. Sherri denies CP and SOB. she is lying flat in bed with no tachypnea and no labored breathing. She has no conversational dyspnea. She is alert and angry. Her face is flushed. Resting HR is mildly increased. No MM, No gallop and no rub. No ectopy. Lungs are CTA. Abd is soft and ND. She has no guarding with palpation. No edema MM are dry. Poor intake. No facial asymmetry. She can not move the LLE but, all other extremities are moving. Less alien hand movement of the LUE. PERRLA, EOMI, Still with Left side neglect. Objective Data Objective Data Vital Signs: Vital Signs Temp Pulse Resp BP Pulse Ox O2 Del Method O2 Flow Rate 97.8 F 83 18 115/48 L 97 Room Air 2 08/02/23 08:32 08/02/23 08:32 08/02/23 08:32 08/02/23 08:32 08/02/23 08:32 08/02/23 09:20 08/02/23 08:32 Oxygen Flow Rate (L/min) 2 Oxygen Delivery Method Room Air Weight: 189 lb Body Mass Index (BMI) 32.2 Intake & Output: Intake and Output for Last 24 Hours 07/31/23 08/01/23 08/02/23 23:59 23:59 23:59 Intake Total 850 / 850 910 / 910 120 / 120 Output Total 1150 / 1150 200 / 200 Balance -300 / -300 710 / 710 120 / 120 Lab / Micro Data 08/01/23 08:17 08/01/23 08:17 Labs: Laboratory Results - last 24 hr 08/02/23 02:55: POC Glucose 93 Assessment & Plan Assessment/Plan (1) Episodic altered awareness: (2) History of right MCA stroke: (3) Closed TBI (traumatic brain injury): QUALIFIERS: Encounter type: subsequent encounter Loss of consciousness presence/duration: unknown LOC status Qualified Code(s): S06.9XAD - Unspecified intracranial injury with loss of consciousness status unknown, subsequent encounter (4) Subarachnoid hemorrhage: (5) Ischemic cerebrovascular accident (CVA): (6) STEMI (ST elevation myocardial infarction): QUALIFIERS: Involved coronary artery: unspecified coronary artery Qualified Code(s): I21.3 - ST elevation (STEMI) myocardial infarction of u nspecified site (7) Takotsubo cardiomyopathy: (8) Urine retention: (9) Recurrent major 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 Continue therapy 2. Can not control behaviors. Seroquel seemed to be more effective than the Vraylar. I do not like giving benzo's to a confused patient but, we felt she may be having temporal lobe seizures since the behavior was so episodic. Will attempt to get the report of the EEG today. It was done on Thursday. I am going to DC the Vraylar, DC the Ativan and start Seroquel 50 mg at HS and Haldol 1 mg IV Q8H as needed for severe agitation. Will discuss possible referral to virgie with the SW tomorrow. 3. Continue Keppra at 750 mg twice daily until I have the results of the EEG. 4. Contact the RT to see if there is a report on the EEG yet. I reached out to Katie to update her on her mother's condition. I told her I think she needs to see a psychiatrist to get her agitation under control. I can find no reason for the extreme agitation. She is not infected. We are changing medications to see if they are contributing to the agitation. I advised Katie not to visit today because it seems to set her off when family leaves. Charges/Coding Visit Charges Inpatient E&M: 14572 Subs Hosp L2
[2023-08-02] MEDS: Enoxaparin 40 MG/0.4 ML Syringe SC (10:02)
[2023-08-02] MEDS: Haloperidol Lactate 5 MG/ML Vial 1 MG IV (10:04)
[2023-08-02] MEDS: 0.9% Saline Lock 10 ML Syringe IV ×2 (10:05→14:28)
[2023-08-02] MEDS: QUEtiapine 25 MG Tablet PO (11:37)
[2023-08-02] MEDS: QUEtiapine 25 MG Tablet 50 MG PO (20:20)
[2023-08-02] MEDS: Mirtazapine 30 MG Tablet PO (21:16)
[2023-08-02] MEDS: Atorvastatin Calcium 40 MG Tablet PO (21:21)
[2023-08-02] MEDS: Latanoprost 0.005% 1 Bottle 1 DRP EACH EYE (21:23)
[2023-08-02 22:00] VITALS: BP 122/70; PULSE 62; RESP 16; TEMP 36.4; O2SAT 96
[2023-08-03] MEDS: 0.9% Saline Lock 10 ML Syringe IV ×2 (00:12→18:14)
[2023-08-03 07:30] VITALS: BP 126/50; PULSE 75; RESP 15; TEMP 37.2; O2SAT 96
[2023-08-03] MEDS: NIFEdipine 30 MG Tablet PO (08:46)
[2023-08-03] MEDS: Acetaminophen 325 MG Tablet 650 MG PO (08:46)
[2023-08-03] MEDS: Enoxaparin 40 MG/0.4 ML Syringe SC (08:46)
[2023-08-03] MEDS: Magnesium Chloride 64 MG Delay Rel.Tablet 128 MG PO (08:47)
[2023-08-03] MEDS: Senna/Docusate Sodium 1 Tablet 2 TABLET PO (08:47)
[2023-08-03] MEDS: Polyethylene Glycol 3350 17 GM PACKET PO (08:47)
[2023-08-03] MEDS: Carvedilol 12.5 MG Tablet PO ×2 (08:47→17:10)
[2023-08-03] MEDS: Losartan Potassium 50 MG Tablet PO ×2 (08:47→20:22)
[2023-08-03] MEDS: Pantoprazole Sodium 20 MG Tablet PO (08:48)
[2023-08-03] MEDS: Aspirin E.C. 81 MG Tablet PO (08:48)
[2023-08-03] MEDS: levETIRAcetam 750 MG Tablet PO ×2 (08:51→20:23)
[2023-08-03 09:21] VITALS: BMI 32.0
--- NOTE | 2023-08-03 12:10 | PN_ITS ---
Subjective Subjective Afebrile VSS Maintaining appropriate oxygen saturation on RA Oral intake - FOOD very poor FLUIDS poor Discussed with nursing - She had a better night last night and was able to sleep. She was sleeping when I entered her room today. She is still requiring a sitter. She remains somewhat confused but she is more cooperative. She is very angry with her and feels he is not doing enough to care for her. she feels this way about her dtr Shonda also. Reviewed the THERAPY notes Medication list reviewed. She received 2 doses of 1 mg of Ativan yesterday but has had none since. Currently on Seroquel 50 mg at 8 PM due to severe agitation/delirium. She denies pain other than in her knees and asks me when we are going to be able to take care of this. she is calm when she talks to me. Not restless. Denies CP, SOB. lightheadedness, nausea/vomiting/epigastric pain, dysuria and calf pain. EEG did not show epileptiform activity. She does have delta slow-wave activity on the right side which is secondary to the stroke. Objective Data Objective Data Vital Signs: Vital Signs Temp Pulse Resp BP Pulse Ox O2 Del Method O2 Flow Rate 99.0 F 75 15 126/50 H 96 Room Air 2 08/03/23 07:30 08/03/23 07:30 08/03/23 07:30 08/03/23 07:30 08/03/23 07:30 08/03/23 07:30 08/02/23 08:32 Oxygen Flow Rate (L/min) 2 Oxygen Delivery Method Room Air Weight: 187 lb 6.287 oz Body Mass Index (BMI) 32.0 Intake & Output: Intake and Output for Last 24 Hours 08/01/23 08/02/23 08/03/23 23:59 23:59 23:59 Intake Total 910 / 910 170 / 170 Output Total 200 / 200 725 / 725 500 / 500 Balance 710 / 710 -555 / -555 -500 / -500 Lab / Micro Data 08/01/23 08:17 08/01/23 08:17 Physical Exam Const Constitutional Narrative: Arouses easily. She is able to converse with me today in a calm manner. She remains confused. Has been sleeping the majority of the day. HEENT HEENT Narrative: Mucous membranes are very dry. Eyes PERRL and EOMs intact bilaterally Resp normal respiratory effort and clear to auscultation bilaterally Resp Narrative: Able to speak in complete sentences. Effort and Inspection: Negative for tachypneic Cardio regular rate, regular rhythm, no rub and no gallops GI normal to inspection, nondistended, normoactive bowel sounds, soft to palpation and non-tender Extremity no calf tenderness General Extremity: Negative for edema Skin Skin Narrative: Skin is dry and tents. General Skin Exam: no breakdown Rashes: no rashes Neuro Neuro Narrative: No tremors of the LUE. She is moving it appropriately today. No significant facial droop. Still with some L side neglect. Psych Psych Narrative: Calmer today. Still confused. Blames her for a lot of the bad things that have happened to her in their lifetime. Bringing up things that happened years ago. Still with delirium........? the etiology. More likely than not multifactorial......stroke, TBI, SAH, STEMI, takotsubo's CM, sleep deprivation, dehydration. No obvious infection. Seems a little better today. Not making progress in therapy. Assessment & Plan Assessment/Plan (1) Episodic altered awareness: (2) History of right MCA stroke: (3) Closed TBI (traumatic brain injury): QUALIFIERS: Encounter type: subsequent encounter Loss of consciousness presence/duration: unknown LOC status Qualified Code(s): S06.9XAD - Unspecified intracranial injury with loss of consciousness status unknown, subsequent encounter (4) Subarachnoid hemorrhage: (5) Ischemic cerebrovascular accident (CVA): (6) STEMI (ST elevation myocardial infarction): QUALIFIERS: Involved coronary artery: unspecified coronary artery Qualified Code(s): I21.3 - ST elevation (STEMI) myocardial infarction of unspecified site (7) Takotsubo cardiomyopathy: (8) Urine retention: (9) Recurrent major 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 Continue therapy - if she is unable to do 3 hours of therapy daily and continues to be agitated and delirious will need to transfer to a geriatric psyc hiatric unit to get her behavior under control. this is beyond the scope of my practise at this time. Will reassess in the AM since she has had some sleep. 2. Continue the current drug regimen. 3. start IV fluids today to hydrate. I discussed with Brendon and will contact Shonda in the AM to set up a time when we can discuss plans going forward. Charges/Coding Visit Charges Inpatient E&M: 62183 Subs Hosp L1
--- NOTE | 2023-08-03 14:02 | CASEMGMT ---
Social Work IDT met with patient and via conference call for Team meeting. Discussed patient's progress in PT/OT/ST/SN. Educated to [facility] and Home insurance with [employer] 08/06 and continued stay is not guaranteed with each review. SW discussed with that per , if pt does not show improvement and participation with therapy, SW will discuss options for geripsych facilities for management. is agreeable. SW will follow up with tomorrow and determine plan. Will continue to follow. JUAN KamW
[2023-08-03] MEDS: 0.9% Normal Saline (1000mL) 1,000 ML 75 ML IV (18:09)
[2023-08-03 20:01] VITALS: BP 129/60; PULSE 72; RESP 16; TEMP 36.2; O2SAT 99
[2023-08-03] MEDS: QUEtiapine 25 MG Tablet 50 MG PO (20:22)
[2023-08-03] MEDS: Ensure Plus High Protein 120 ML LIQUID PO (20:22)
[2023-08-03] MEDS: Atorvastatin Calcium 40 MG Tablet PO (20:23)
[2023-08-03] MEDS: Mirtazapine 30 MG Tablet PO (20:23)
[2023-08-03] MEDS: Latanoprost 0.005% 1 Bottle 1 DRP EACH EYE (20:23)
[2023-08-03] MEDS: Haloperidol Lactate 5 MG/ML Vial 1 MG IV (21:54)
--- NOTE | 2023-08-03 22:04 | NURSING ---
Patient noted to start having with anxiousness and agitation. Restlessness also noted with patient continuously trying to get out of bed. Patient started to verbally be aggressive as well as physically escalated. Offered back rub to patient, patient teary eyed. PRN Haldol IM 1mg given in left deltoid due to agitation and aggression. Patient tolerated well. Patient seemed to be resting more comfortably after continuing to rub back post-IM injection. Bed alarm and pull away reattached and returned to low position for patient safety.
--- NOTE | 2023-08-03 22:52 | NURSING ---
pt aroused from sleeping following Haldol admin. Pt weapy and wants to call family. Pt yelling out for HELP and ignoring staff's attempt of comfort. Pt door closed with FURNITURE STAINER in room to attempt to sooth pt. Pt refusing nursing care and becoming more agitated. Pt is tearful and inconsolable at this time. FURNITURE STAINER sitting with pt in room. Pt can be heard in the ron, despite room door closed yelling randomly.
--- NOTE | 2023-08-04 02:10 | NURSING ---
Pt attempting to get out of bed. Pt talking about desire to get up to bake apple cake that was promised for friends. Pt requesting transportation to deliver baked goods and get to [facility]. There are moments where pt appears to be settling down but then is alert and has to be repositioned into bed by staff to ensure safety.
[2023-08-04 07:14] VITALS: O2SAT 95
[2023-08-04] MEDS: Aspirin E.C. 81 MG Tablet PO (08:09)
[2023-08-04] MEDS: Carvedilol 12.5 MG Tablet PO ×2 (08:13→17:43)
[2023-08-04] MEDS: Senna/Docusate Sodium 1 Tablet 2 TABLET PO ×2 (08:16→21:35)
[2023-08-04] MEDS: levETIRAcetam 750 MG Tablet PO ×2 (08:16→21:35)
[2023-08-04] MEDS: Magnesium Chloride 64 MG Delay Rel.Tablet 128 MG PO (08:16)
[2023-08-04] MEDS: NIFEdipine 30 MG Tablet PO (08:16)
[2023-08-04] MEDS: Losartan Potassium 50 MG Tablet PO ×2 (08:16→21:38)
[2023-08-04] MEDS: Polyethylene Glycol 3350 17 GM PACKET PO (08:17)
[2023-08-04] MEDS: Enoxaparin 40 MG/0.4 ML Syringe SC (08:17)
[2023-08-04] MEDS: Acetaminophen 325 MG Tablet 650 MG PO (08:19)
[2023-08-04] MEDS: Pantoprazole Sodium 20 MG Tablet PO (08:19)
[2023-08-04] MEDS: 0.9% Normal Saline (1000mL) 1,000 ML 75 ML IV ×2 (08:23→20:39)
--- NOTE | 2023-08-04 09:07 | PCM.PROGNOTE ---
Subjective Subjective Afebrile VSS-blood pressure is well-controlled. Maintaining appropriate oxygen saturation on RA-95 to 99% Oral intake - FOOD- has been very poor but, today she ate 50-74% of her breakfast and 75-100% of lunch. FLUIDS poor - but, she did do better yesterday and took 780 PO Discussed with nursing - she had a dose of Haldol last night at 10 PM and the documentation says it was given for severe agitation but, I find no documentation that she was agitated in the other nursing notes. Reviewed the THERAPY notes Medication list reviewed. She is pleasant today and smiling. She tells me about an aura that she has been in and the dreams she has been having........she dreamt she was at a alliance party last Thursday and was in a basement with 2 children and the basement had no way in or out. She asked me if we have been giving her mushrooms because her dreams are vivid and crazy. Last night she said slept in the bed of a truck. When I asked if she thought these things really happened she said no. She does have some insight into her recent struggles with confusion and delusions. She is not agitated at all today. She is cooperating with therapy today. he is open to having her family visit today. Objective Data Objective Data Vital Signs: Vital Signs Temp Pulse Resp BP Pulse Ox O2 Del Method O2 Flow Rate 97.1 F L 72 16 129/60 H 95 Room Air 2 08/03/23 20:01 08/03/23 20:01 08/03/23 20:01 08/03/23 20:01 08/04/23 07:14 08/04/23 07:14 08/02/23 08:32 Oxygen Flow Rate (L/min) 2 Oxygen Delivery Method Room Air Weight: 187 lb 6.287 oz Body Mass Index (BMI) 32.0 Intake & Output: Intake and Output for Last 24 Hours 08/02/23 08/03/23 08/04/23 23:59 23:59 23:59 Intake Total 170 / 170 780 / 780 1000 / 1000 Output Total 725 / 725 800 / 800 580 / 580 Balance -555 / -555 -20 / -20 420 / 420 Lab / Micro Data 08/01/23 08:17 08/01/23 08:17 Micro: Microbiology 08/03/23 19:40 Stool Stool Occult Blood (BHARAT) - Final Physical Exam Const alert Constitutional Narrative: Can tell me that she is in a place where they get you better but, could not find the word hospital. Oriented to person. Knows she had a stroke. She is still confused but, she is now aware of this and that some of the things she has been dreaming/imaging are not real. Has a difficult time figuring out why this has happened, even after I explain it to her. General Appearance: cooperative Orientation / Consciousness: confused HEENT Mouth: dry mucous membranes Eyes Eyes Narrative: She is able to find me on her left side and she is making eye contact with me when I am speaking with her. Less neglect. Neck No nuchal rigidity, supple and No nodes Resp clear to auscultation bilaterally Resp Narrative: No SOB even lying flat in bed today. Effort and Inspection: Negative for tachypneic Cardio regular rate, regular rhythm and no gallops Cardio Narrative: resting HR is better today. GI normal to inspection, nondistended, normoactive bowel sounds, soft to palpation and non-tender Extremity no calf tenderness General Extremity: Negative for edema Skin Rashes: no rashes Psych cooperative Psych Narrative: Not tearful. I think the depression she has is reactive at this point. I think she would benefit greatly from psychotherapy. I discussed this with her dtr Shonda. I think she needs to deal with all the tragedies that she has had in her lifetime so that she can move past this and get on with her life. Attitude: No agitated Activity / Motor Behavior: Negative for restless Assessment & Plan Assessment/Plan (1) History of right MCA stroke: (2) Closed TBI (traumatic brain injury): QUALIFIERS: Encounter type: subsequent encounter Loss of consciousness presence/duration: unknown LOC status Qualified Code(s): S06.9XAD - Unspecified intracranial injury with loss of consciousness status unknown, subsequent encounter (3) Subarachnoid hemorrhage: (4) Ischemic cerebrovascular accident (CVA): (5) STEMI (ST elevation myocardial infarction): QUALIFIERS: Involved coronary artery: unspecified coronary artery Qualified Code(s): I21.3 - ST elevation (STEMI) myocardial infarction of unspecified site (6) Takotsubo cardiomyopathy: (7) Urine retention: (8) Recurrent major depression resistant to treatment: (9) Delirium: (10) Dehydration: PLAN: Plan 1. Continue therapy 2. Continue Haldol Q 12H PRN 1 more day and then DC tomorrow AM. Continue Seroquel 50 mg Q HS but change the time to 1900. Confusion increase as the the evening progresses. 3. Delirium is improving with adjustments to medication, better sleep and improved hydration. Appetite is somewhat better today. She is smiling and laughing today and has some insight into the craziness of the dreams she has been having and realizes they were not real at times. Continue IV fluids today but, decrease the rate to 60 cc/hr. will DC fluids in the AM. 4. DC the IVF's in the early AM. She is doing much better today with oral intake. No sx of CHF. Not requiring diuretics at this point. Charges/Coding Visit Charges Inpatient E&M: 38540 [facility] Hosp L1
[2023-08-04] MEDS: Ensure Plus High Protein 120 ML LIQUID PO ×3 (09:58→17:40)
[2023-08-04 10:00] VITALS: BP 123/71; PULSE 70; RESP 16; TEMP 36.2; O2SAT 98
--- NOTE | 2023-08-04 14:54 | CASEMGMT ---
Social Work SW collaborated with and states pt is currently stable without a sitter and is making another medication adjustment. Will continue to examine pt's needs daily. Currently no geripsych referral unless pt declines again. However, pt will still need a SNF at [place]. SW phoned to discuss above and expressed understanding and agreement. SW revisited SNF preferences. stated [facility]. [facility]. SW reminded TCU denied and pt is not appropriate for unit. Also cautioned it may be more difficult to place pt in a SNF with recent events. expressed understanding. SW to place SNF referrals with another 24 hours sitter free. SW will continue to follow. Frances Huff MSW QUILTING SUPERVISOR
[2023-08-04 20:01] VITALS: BP 132/62; PULSE 74; RESP 15; TEMP 36.6; O2SAT 95
[2023-08-04] MEDS: QUEtiapine 25 MG Tablet 50 MG PO (21:34)
[2023-08-04] MEDS: Atorvastatin Calcium 40 MG Tablet PO (21:35)
[2023-08-04] MEDS: Latanoprost 0.005% 1 Bottle 1 DRP EACH EYE (21:35)
[2023-08-04] MEDS: Mirtazapine 30 MG Tablet PO (21:35)
[2023-08-05 06:00] VITALS: BMI 32.5
[2023-08-05 07:48] VITALS: BP 117/59; PULSE 71; RESP 18; TEMP 36.7; O2SAT 98
--- NOTE | 2023-08-05 09:10 | CT_ITS ---
STUDY: CT BRAIN WITHOUT CONTRAST REASON FOR EXAM: Female, 72 years old. Unresponsive RADIATION DOSAGE (If Supplied By Facility): CTDIvol = ( 44.99 ) mGy, DLP = ( 943.26 ) mGycm TECHNIQUE: Transaxial CT imaging of the brain was performed without administration of intravenous contrast material. Individualized dose optimization techniques were used for this CT. COMPARISON: Comparison is made with prior study dated July 29, 2023. FINDINGS: Normal soft tissue structures. Normal calvarium. There is mild cerebral atrophy with widening of the extra-axial spaces and ventricular dilatation. There are areas of decreased attenuation within the white matter tracts of the supratentorial brain, consistent with microvascular disease changes. Stable encephalomalacia in the right posterior temporoparietal occipital lobes. No evidence of a bleed is seen at this time. Normal basal ganglia and thalami. Normal brainstem. There is mild cerebellar atrophy. Focal as fibrillation in the lateral aspect of the left cerebellar hemisphere. There is no intracranial hemorrhage. There are no findings of an acute ischemic infarction. Normal visualized paranasal sinuses. CT/Brain/Head without Contrast IMPRESSION: Encephalomalacia involving the right posterior temporoparietal occipital lobes. No evidence of bleed at this time. Electronically Signed: Gordo Clay MD at 10:43 EST ,
[2023-08-05 09:45] LABS: Bedside Glucose 123 mg/dL (74-106)
[2023-08-05] MEDS: NIFEdipine 30 MG Tablet PO (09:46)
[2023-08-05] MEDS: Aspirin E.C. 81 MG Tablet PO (09:46)
[2023-08-05] MEDS: levETIRAcetam 750 MG Tablet PO ×2 (09:46→21:05)
[2023-08-05] MEDS: Losartan Potassium 50 MG Tablet PO ×2 (09:46→21:05)
[2023-08-05] MEDS: Magnesium Chloride 64 MG Delay Rel.Tablet 128 MG PO (09:46)
[2023-08-05] MEDS: Polyethylene Glycol 3350 17 GM PACKET PO (09:47)
[2023-08-05] MEDS: Acetaminophen 325 MG Tablet 650 MG PO (09:47)
[2023-08-05] MEDS: Senna/Docusate Sodium 1 Tablet 2 TABLET PO ×2 (09:47→19:48)
[2023-08-05] MEDS: Pantoprazole Sodium 20 MG Tablet PO (09:47)
[2023-08-05] MEDS: Enoxaparin 40 MG/0.4 ML Syringe SC (09:47)
[2023-08-05] MEDS: Carvedilol 12.5 MG Tablet PO ×2 (09:47→17:15)
--- NOTE | 2023-08-05 09:54 | NURSING ---
Pt became unresponsive while working with therapy. ACOUSTICAL CARPENTER Called. VS WNL. CT head ordered. Dr santamaria made aware
--- NOTE | 2023-08-05 10:34 | CASEMGMT ---
Addendum entered by Frances Huff 08/07/23 16:03: KAROLINE referred to 10 [facility] facilities and only accepting facility is [facility] in [place]. Pt can admit anytime. KAROILNE phoned dtr to update on above. Dtr is agreeable to facility and offered to update father. [facility] and can sign admission paperwork to the facility. SW to update dtr once GISEL Yung determines DC date. KAROLINE spoke with Dr and agreeable and pt will DC 3/2. KAROLINE placed pt on will call through [facility]. KAROLINE gave detailed hand off report to RU BELEN. KAROLINE phoned Emelia back at [facility] for DC 3/2. KAROLINE phoned dtr to update on DC 3/2 and paperwork needing signed. Dtr expressed understanding. IDT updated. Plan: DC 3/2 to [facility] in [place]. Frances Huff, RN PROCEDURES DERRICK CAR OPERATOR Addendum entered by Frances Huff 08/06/23 16:14: KAROLINE referred via fax to [facility], [facility], [facility], [facility], [facility]. [facility] denied d/t medical acuity. Addendum entered by Frances Huff 08/06/23 12:20: KAROLINE and met with pt, whom was asleep, and dtr via conference call. discussed pt's current medical and psychiatric condition. Pt remains behavioral and is unable to manage pt's needs. recommending [facility] placement for best opportunity at pt's recovery. and this worker stressed multiple times [facility] specializes in this population and type of need, it is not a long-term care facility and educated to not managing medical needs or completing therapy. The goal is pt would remain until stabilized then DC to a SNF, with psych on staff, and begin therapy again for best outcomes. and this worker answered family's questions. Family agreed to placement. KAROLINE requested to send referrals to several facilities initially to determine insurance network and bed availability. If multiple facilities accept, SW to present family with choices. Both agreed. Addendum entered by Frances Huff 08/06/23 09:21: KAROLINE phoned dtr to follow up on scheduling a meeting today. can be present at 1130 and dtr can attend via conference call. aware Original Note: Social Work SW responded to LINE CONSTRUCTION SUPERINTENDENT. No family present. Pt unresponsive. After evaluations and testing completed, GISEL YUNG requested a meeting be scheduled with this worker, Dr, and dtr to discuss DC plans and pts condition. Dr recommending transfer to SNF. Pt is no longer appropriate for IRU LOC. SW placed referrals to [facility] and [facility] via [facility]. SW phoned dtr to schedule meeting and dtr did not get update from father. SW requested nursing contact dtr for medical update but for dtr to contact father in the meantime. SW explained requesting to schedule meeting and for dtr to notify this worker of a time to do so. SW will continue to follow. -- [facility] denied. KAROLINE sent follow up email to admissions at [facility] to review referral. JUAN Kam DERRICK CAR OPERATOR
--- NOTE | 2023-08-05 11:01 | PN_ITS ---
Subjective Subjective OUTSIDE CONTRACTOR SALES called this AM when she became unresponsive sitting in the WC. She was sent for a CT brain. CT showed no acute findings. when she returned from CT she was at her recent baseline. She awoke at 3 AM last night and was very tearful and reliving the of her infant baby girl. Night nursing was able to calm her down without giving Haldol and she went back to sleep. EKG showed NSR with incomplete LBBB. No ST elevation and no ectopy. He has a QS wave in V1 through V5 with a small R wave in V6. Also with a QS waves in lead III and aVF. Not able to do 3 hours of therapy again today. EEG done last Thursday showed generalized continuous slow, low amplitude delta activity consistent with a structural lesion on the right side of the brain which is consistent with the location of the stroke. The study was also consistent with mild diffuse encephalopathy. No epileptiform discharges were seen. She has not had any tonic clonic activity. AF BP's are elevated. appetite is picking up a little. Urine in the Donato bag is pale yellow and clear. She is drowsy. She is lying flat in bed with no respiratory distress and no tachypnea. No JVD HRRR, no gallop, no rub abd - soft, no guarding with palpation. BS's are normal. no ankle edema no rashes. no tremors. Objective Data Objective Data Vital Signs: Vital Signs Temp Pulse Resp BP Pulse Ox O2 Del Method O2 Flow Rate 98.1 F 71 18 117/59 L 98 Room Air 2 08/05/23 07:48 08/05/23 07:48 08/05/23 07:48 08/05/23 07:48 08/05/23 07:48 08/05/23 07:48 08/02/23 08:32 Oxygen Flow Rate (L/min) 2 Oxygen Delivery Method Room Air Weight: 189 lb 9.561 oz Body Mass Index (BMI) 32.5 Intake & Output: Intake and Output for Last 24 Hours 08/03/23 08/04/23 08/05/23 23:59 23:59 23:59 Intake Total 780 / 780 2540 / 2540 1220 / 1220 Output Total 800 / 800 2130 / 2130 600 / 600 Balance -20 / -20 410 / 410 620 / 620 Lab / Micro Data 08/01/23 08:17 08/01/23 08:17 Labs: Laboratory Results - last 24 hr 08/05/23 08:56: POC Glucose 123 H Micro: Microbiology 08/03/23 19:40 Stool Stool Occult Blood (BHARAT) - Final Radiography Diagnostic Testing: Radiology Impression Brain CT 08/05/23 09:10 IMPRESSION: Encephalomalacia involving the right posterior temporoparietal occipital lobes. No evidence of bleed at this time. Electronically Signed: Gordo Clay MD at 10:43 EST , Assessment & Plan Assessment/Plan (1) History of right MCA stroke: (2) Closed TBI (traumatic brain injury): QUALIFIERS: Encounter type: subsequent encounter Loss of consciousness presence/duration: unknown LOC status Qualified Code(s): S06.9XAD - Unspecified intracranial injury with loss of consciousness status unknown, subsequent encounter (3) Subarachnoid hemorrhage: (4) Ischemic cerebrovascular accident (CVA): (5) STEMI (ST elevation myocardial infarction): QUALIFIERS: Involved coronary artery: unspecified coronary artery Qualified Code(s): I21.3 - ST elevation (STEMI) myocardial infarction of unspecified site (6) Takotsubo cardiomyopathy: (7) Urine retention: (8) Recurrent major depression resistant to treatment: (9) Delirium: PLAN: Plan 1. D/W the SW. We need to schedule a family meeting to determine what the next step is and where she is going to go. She is really not improving. Behavior is still bizarre and it definitely degenerates at night. I have no reason for the unresponsiveness today. she has been evaluated for this by teleneurology while she was on acute......they did not feel it was due to seizure. MRI of the head was unchanged. She has had no convulsive activity and the EEG done recently is negative for epileptiform activity. UA's are negative ands she is AF with pale yellow clear urine in the Donato bag. Need to try something different. Keppra and Seroquel can both cause agitation and confusion. Will DC Haldol......has not had any since 08/03/23. Consider tapering the Keppra and the Seroquel. Unable to do therapy for 3 hours due to mental status changes/del irium. I can not see her getting better in a SNF. May be better to consider an admission to a geriatric psych unit to get the behaviors under control. 2. Dc the IV fluids today. Charges/Coding Visit Charges Inpatient E&M: 29889 Subs Hosp L1
--- NOTE | 2023-08-05 12:45 | NURSING ---
pt refusing Occupational therapy this afternoon.
[2023-08-05] MEDS: Ensure Plus High Protein 120 ML LIQUID PO ×2 (14:17→17:16)
[2023-08-05] MEDS: QUEtiapine 25 MG Tablet 50 MG PO (19:48)
[2023-08-05] MEDS: Mirtazapine 30 MG Tablet PO (21:05)
[2023-08-05] MEDS: Atorvastatin Calcium 40 MG Tablet PO (21:05)
[2023-08-05] MEDS: Latanoprost 0.005% 1 Bottle 1 DRP EACH EYE (21:09)
[2023-08-05 22:00] VITALS: BP 134/54; PULSE 76; RESP 17; TEMP 37; O2SAT 97
[2023-08-06 06:00] VITALS: BMI 31.8
--- NOTE | 2023-08-06 08:10 | NURSING ---
Handoff report stated that pt only slept total of 3 hours overnight and that a sitter was needed d/t pt yelling out and trying to get out of bed on her own. prior nurse stated that the pt was crying out for her son who has one minute than the next she was laughing . Nurse stated that pt was hissing at staff and saying that the devil was coming for them. Pt's behaviors continued this morning with pt asking this nurse why no one came to watch her perform on Sascha, when told by nurse that she was unsure why no one showed up the pt started asking who was in the basement and was talking to the voice coming out of the TV controller, pt got frustrated saying that she did not understand why he wasn't answering her. The TV was turned off and this nurse redirected pt to eating breakfast. pt now resting with eye closed, bed alarm is on and call light is in reach.
[2023-08-06 08:13] VITALS: BP 126/70; PULSE 77; RESP 19; TEMP 37.2; O2SAT 95
[2023-08-06] MEDS: Senna/Docusate Sodium 1 Tablet 2 TABLET PO (09:02)
[2023-08-06] MEDS: NIFEdipine 30 MG Tablet PO (09:02)
[2023-08-06] MEDS: Aspirin E.C. 81 MG Tablet PO (09:03)
[2023-08-06] MEDS: Pantoprazole Sodium 20 MG Tablet PO (09:03)
[2023-08-06] MEDS: levETIRAcetam 750 MG Tablet PO (09:03)
[2023-08-06] MEDS: Losartan Potassium 50 MG Tablet PO ×2 (09:03→21:07)
[2023-08-06] MEDS: Acetaminophen 325 MG Tablet 650 MG PO (09:03)
[2023-08-06] MEDS: Carvedilol 12.5 MG Tablet PO ×2 (09:03→17:00)
[2023-08-06] MEDS: Magnesium Chloride 64 MG Delay Rel.Tablet 128 MG PO (09:04)
[2023-08-06] MEDS: Enoxaparin 40 MG/0.4 ML Syringe SC (09:04)
[2023-08-06] MEDS: Polyethylene Glycol 3350 17 GM PACKET PO (09:04)
[2023-08-06] MEDS: Ensure Plus High Protein 120 ML LIQUID PO ×3 (09:04→17:02)
[2023-08-06 11:08] LABS: Absolute Lymphocyte Count 1.34 X10^3/uL (0.83-4.51); Absolute Neutrophil Count 7.7 X10^3/uL (2.0-7.7); Basophil# 0.11 X10^3/uL; Basophil% 1.1 % (0-1); Hematocrit 31.9 % (37-47); Hemoglobin 10.4 g/dL (12.0-15.0); Lymphocyte # 1.34 X10^3/ul (0.83-4.51); Lymphocyte % 13.2 % (19-41); Mean Corp Hgb Conc 32.6 g/dL (32-36); Mean Corpuscular Volume 95.2 fL (81-99); Mean Platelet Vol. 11.5 fl (6.2-12.0); Monocyte# 0.78 X10^3/uL; Monocyte% 7.7 % (0-10); NRBC Flagged by Analyzer 0 % (0-5); Neutrophil # 7.69 X10^3/uL (2.7-7.7); Neutrophil % 75.7 % (47-70); Platelet Count 350 K/mm3 (150-450); RBC Distribution Width CV 13.7 % (11.6-14.6); RBC Distribution Width SD 47.8 fl (35.1-43.9); Red Blood Count 3.35 M/mm3 (4.2-5.4); White Blood Count 10.2 K/mm3 (4.4-11.0)
[2023-08-06 11:32] LABS: ALB/GLOB Ratio 0.8 RATIO (0.9-2.4); AST(SGOT) 24 U/L (15-37); Alanine Aminotransfer ALT/SGPT 20 U/L (13-56); Albumin, Serum 2.7 g/dL (3.2-5.0); Alkaline Phosphatase 79 U/L (45-117); Anion Gap 3 (5-15); BUN 13 mg/dL (7-18); BUN/Creat Ratio 18.3 RATIO (10-20); Calcium,Total 8.8 mg/dL (8.5-10.1); Chloride 118 mmol/L (98-107); Creatinine, Serum 0.71 mg/dL (0.55-1.02); EST Glomerular Filtration Rate 86 mL/min (>60); Est Glom Filt Rate - Afr Amer 103 mL/min (>60); Estimated Creatinine Clearance 64.81 ml/min; Globulin 3.2 g/dL (2.2-4.2); Glucose 123 mg/dL (74-106); Magnesium 2.4 mg/dL (1.6-2.6); Phosphorus 1.6 mg/dL (2.5-4.9); Potassium 3.5 mmol/L (3.5-5.1); Protein, Total 5.9 g/dL (6.4-8.2); Sodium Level 141 mmol/L (136-145)
[2023-08-06 11:52] LABS: Red Blood Cells-Urine 0 SEEN /hpf (0-5); Squamous Epithelial Cells - UA 0 SEEN /hpf (5-10)
[2023-08-06 11:59] LABS: Color, Urine Yellow (Yellow); Glucose, Dipstick Normal (Normal); Ketone-Dipstick 15 mg/dl (Negative); Leukocyte Esterase-Dipstick 100 /ul (Negative); Nitrite-Dipstick Negative (Negative); Occult Blood-Urine 10 /ul (Negative); Protein-Dipstick 15 mg/dl (Negative); Specific Gravity, Urine 1.025 (1.002-1.030); Urine Bilirubin Dipstick Negative (Negative); Urine Clarity Sl. Cloudy (Clear); Urine Urobilinogen Normal (Normal)
[2023-08-06 12:44] LABS: Bacteria 1+ /hpf (None Seen); Mucous, Urine 2+ /hpf (<or=2+); White Blood Cells 10-25 SEEN /hpf (0-5)
--- NOTE | 2023-08-06 14:35 | NURSING ---
pt attempting to get out of bed this nurse sits with pt and listens to her voice her concerns bout her and not having her cell phone. This nurse redirects the conversation to the weather and the pt goes into conversation her granddaughter. This nurse sat with the pt for approximately 30 min providing active listening. Pt resting quietly in bed at this time, call light in reach. will continue to monitor.
[2023-08-06] MEDS: 0.9% Saline Lock 10 ML Syringe IV (15:19)
[2023-08-06] MEDS: Lactated Ringers 1,000 ML 50 ML IV (15:19)
[2023-08-06] MEDS: levoFLOXacin IV 250 MG/50 ML BAG 50 MG IV (15:29)
[2023-08-06] MEDS: Potassium Phosphate 40 MM in 0.9% Normal Saline (500mL Bag) 500 ML 62.5 MM IV (16:57)
[2023-08-06 21:00] VITALS: BP 133/58; PULSE 68; RESP 15; TEMP 36.2; O2SAT 95
[2023-08-06] MEDS: QUEtiapine 25 MG Tablet PO (21:07)
[2023-08-06] MEDS: Atorvastatin Calcium 40 MG Tablet PO (21:07)
[2023-08-06] MEDS: Mirtazapine 30 MG Tablet PO (21:07)
[2023-08-06] MEDS: Latanoprost 0.005% 1 Bottle 1 DRP EACH EYE (21:08)
[2023-08-07] MEDS: Acetaminophen 325 MG Tablet 650 MG PO (00:21)
--- NOTE | 2023-08-07 00:51 | NURSING ---
pt has been calm and cooperative until 0030 and was then hallucinating that he spouse was in the room and was to have brought a basin and some epsom salts to soak her feet d/t they were hurting her. staff had heard pt talking at 0000 and went into see if she was doing ok. pt was repositioned for comfort and given po fluids. pt was oriented to time of day and that she had plenty of time to rest. pt stated then her spouse would be coming in with epsom salts for her feet. pt was medicated by staff at 0030 with tylenol for her feet and given reassurance that staff would be making sure that she was safe and that she needed to try and go back to sleep. pt was heard talking and staff to investigate and pt reported that her spouse was in the room but was doing nothing to help her. staff reassured pt that everything was fine and we would continue to make sure that she was safe. staff offered to leave light on in the room for comfort and pt declined .
--- NOTE | 2023-08-07 01:18 | NURSING ---
While at bedside changing IV fluids, Pt asked this nurse if I was going to take off with the Jedi, as pt pointed to the IV pole. I attempted to reorient pt, even showing the pt the IV pole. Pt then asked if I was part of the conspiracy? I did not continue conversation but told pt the time was 01:15 and there was still time to get some good rest. Pt rambled on about the man in the corner and how I was going to start a giggle fest with him. There was nothing in the corner that she was referring to.
[2023-08-07 06:00] VITALS: BMI 32.5
[2023-08-07 07:30] VITALS: BP 105/45; PULSE 68; RESP 17; TEMP 36.6; O2SAT 94
[2023-08-07 08:27] VITALS: O2SAT 97
[2023-08-07 08:55] VITALS: BP 118/54; PULSE 69
[2023-08-07] MEDS: Losartan Potassium 50 MG Tablet PO ×2 (09:01→21:28)
[2023-08-07] MEDS: Aspirin E.C. 81 MG Tablet PO (09:01)
[2023-08-07] MEDS: Carvedilol 12.5 MG Tablet PO ×2 (09:01→17:34)
[2023-08-07] MEDS: Enoxaparin 40 MG/0.4 ML Syringe SC (09:02)
[2023-08-07] MEDS: Magnesium Chloride 64 MG Delay Rel.Tablet 128 MG PO (09:02)
[2023-08-07] MEDS: Pantoprazole Sodium 20 MG Tablet PO (09:03)
[2023-08-07] MEDS: Polyethylene Glycol 3350 17 GM PACKET PO (09:03)
[2023-08-07] MEDS: NIFEdipine 30 MG Tablet PO (09:03)
[2023-08-07] MEDS: Senna/Docusate Sodium 1 Tablet 2 TABLET PO (09:03)
[2023-08-07] MEDS: levoFLOXacin IV 250 MG/50 ML BAG 50 MG IV (09:26)
--- NOTE | 2023-08-07 11:38 | PN_ITS ---
Subjective Subjective Afebrile VSS-blood pressure is well-controlled. Heart rate is within normal limits. Maintaining appropriate oxygen saturation on RA Oral intake - FOOD intake is improving and she has eaten 50 to 74% of her last 3 meals. FLUIDS she was able to take 1220 p.o. yesterday Discussed with nursing - nursing reports she had some hallucinations overnight (not sure they don't mean delusions ) she has not been seeing things that aren't there but, she has been having bizarre stories to tell me about things she is dreaming about. She now realizes these things did not happen and it is all in her head . Reviewed the THERAPY notes Medication list reviewed. No observed seizures and no periods of unresponsiveness in the past 36 hours Urine culture is pending. She is very alert today and tells me that she feels more rested. She knows my name and is appropriate with me. She is calm and not trying to climb out of bed. Objective Data Objective Data Vital Signs: Vital Signs Temp Pulse Resp BP Pulse Ox O2 Del Method O2 Flow Rate 97.9 F 69 17 118/54 L 97 Nasal Cannula 2 08/07/23 07:30 08/07/23 08:55 08/07/23 07:30 08/07/23 08:55 08/07/23 08:27 08/07/23 08:27 08/07/23 08:27 Oxygen Flow Rate (L/min) 2 Oxygen Delivery Method Nasal Cannula Weight: 189 lb 9.561 oz Body Mass Index (BMI) 32.5 Intake & Output: Intake and Output for Last 24 Hours 08/05/23 08/06/23 08/07/23 23:59 23:59 23:59 Intake Total 1580 / 1580 1270 / 1270 1940.8333 / 1940.8333 Output Total 1100 / 1100 900 / 900 100 / 100 Balance 480 / 480 370 / 370 1840.8333 / 1840.8333 Lab / Micro Data 08/06/23 10:50 08/06/23 10:50 Labs: Laboratory Results - last 24 hr 08/06/23 10:12: Urine Color Yellow, Urine Clarity Sl. Cloudy, Urine pH 5.0, Ur Specific Valier 1.025, Urine Protein 15 H, Urine Glucose (UA) Normal, Urine Ketones 15 H, Urine Occult Blood 10 H, Urine Nitrite Negative, Urine Bilirubin Negative, Urine Urobilinogen Normal, Ur Leukocyte Esterase 100 H, Urine RBC 0 SEEN, Urine WBC 10-25 SEEN, Ur Squamous Epith Cells 0 SEEN, Urine Bacteria 1+, Urine Mucus 2+ Micro: Microbiology 08/03/23 19:40 Stool Stool Occult Blood (BHARAT) - Final Physical Exam Const alert Constitutional Narrative: She can tell me where she is, why she is here, my name and she knows her name a nd age. She is calm and cooperative today and lying peacefully in bed with no attempts to crawl out of bed. She is making good eye contact with me when we are speaking. Her eyes are open and she is not holding them closed when talking to people today. Resp clear to auscultation bilaterally Resp Narrative: No orthopnea when laying flat in bed. She has no conversational dyspnea and she is not tachypneic. Cardio regular rate, regular rhythm and no gallops Cardio Narrative: No ectopy. GI normal to inspection, nondistended, normoactive bowel sounds, soft to palpation and non-tender GI Narrative: No guarding with palpation Extremity no calf tenderness General Extremity: Negative for edema Skin Rashes: no rashes Assessment & Plan Assessment/Plan (1) History of right MCA stroke: (2) Closed TBI (traumatic brain injury): QUALIFIERS: Encounter type: subsequent encounter Loss of consciousness presence/duration: unknown LOC status Qualified Code(s): S06.9XAD - Unspecified intracranial injury with loss of consciousness status unknown, subsequent encounter (3) Subarachnoid hemorrhage: (4) Ischemic cerebrovascular accident (CVA): (5) STEMI (ST elevation myocardial infarction): QUALIFIERS: Involved coronary artery: unspecified coronary artery Qualified Code(s): I21.3 - ST elevation (STEMI) myocardial infarction of unspecified site (6) Takotsubo cardiomyopathy: (7) Urine retention: (8) Recurrent major depression resistant to treatment: (9) Delirium: PLAN: Plan 1. Continue therapy 2. rice farmworker has reached out to 10 different [facility] psych units but has had no one except the patient yet. Most feel that she is too high acuity for them to take. 3. Tapering medications seems to be having a + results but, too early to say since she has had periods of doing very well and then has sudden decompensation. Avoid using sedative medications. Avoid antipsychotics...........Decrease the Seroquel to 12.5 mg at HS tonight. Continue to hold Keppra and keep her on a HI/LO bed with mats on both sides of the bed for safety. 4. I spoke to the microbiology lab and the urine culture has no growth at 24 hours. The culture was set up prior to her receiving a dose of Levaquin yesterday. Will hold any further antibiotics at this point and await the final culture. 5. Discontinue lactated Ringer's after she has received 2 L. Current oral fluid intake is improving and she is starting to have a better appetite and better nutritional intake. 6. Planned another voiding trial on Thursday. Charges/Coding Visit Charges Inpatient E&M: 66603 [facility] Hosp L1
[2023-08-07] MEDS: Lactated Ringers 1,000 ML 50 ML IV (13:58)
[2023-08-07] MEDS: Mirtazapine 30 MG Tablet PO (21:28)
[2023-08-07] MEDS: Atorvastatin Calcium 40 MG Tablet PO (21:28)
[2023-08-07] MEDS: QUEtiapine 25 MG Tablet 12.5 MG PO (21:28)
[2023-08-07] MEDS: Latanoprost 0.005% 1 Bottle 1 DRP EACH EYE (21:29)
[2023-08-07 22:20] VITALS: BP 131/61; PULSE 76; RESP 18; TEMP 36.6; O2SAT 96
[2023-08-08 06:00] VITALS: BMI 32.5
[2023-08-08] MEDS: 0.9% Saline Lock 10 ML Syringe IV ×3 (06:25→21:30)
[2023-08-08] MEDS: NIFEdipine 30 MG Tablet PO (08:18)
[2023-08-08] MEDS: Carvedilol 12.5 MG Tablet PO ×2 (08:18→18:11)
[2023-08-08] MEDS: Magnesium Chloride 64 MG Delay Rel.Tablet 128 MG PO (08:18)
[2023-08-08] MEDS: Aspirin E.C. 81 MG Tablet PO (08:18)
[2023-08-08] MEDS: Pantoprazole Sodium 20 MG Tablet PO (08:18)
[2023-08-08] MEDS: Losartan Potassium 50 MG Tablet PO ×2 (08:18→20:28)
[2023-08-08] MEDS: Senna/Docusate Sodium 1 Tablet 2 TABLET PO (08:19)
[2023-08-08] MEDS: Enoxaparin 40 MG/0.4 ML Syringe SC (08:21)
[2023-08-08] MEDS: Acetaminophen 325 MG Tablet 650 MG PO (08:22)
[2023-08-08] MEDS: Polyethylene Glycol 3350 17 GM PACKET PO (08:22)
[2023-08-08 08:36] VITALS: BP 115/53; PULSE 78; RESP 17; TEMP 36.8; O2SAT 96
--- NOTE | 2023-08-08 08:50 | PCM.TXEXTCAR ---
Diet Diet Order/Speech Therapy: 07/29/23 17:33 Diet: Cardiac - Heart Healthy Diet Comments: 2000mg sodium Routine Orders/Code Status Enema Type: Fleetz Enema Frequency: Daily PRN Suppository Type: Dulcolax 10mg Suppository Frequency: Daily PRN O2 Liters per Minute: 1-2 O2 Frequency: PRN Keep PO Greater than or Equal to (%): 90 Problem/Diagnosis (1) History of right MCA stroke: Status: Deleted Code(s): Z86.73 - Personal history of transient ischemic attack (TIA), and cerebral infarction without residual deficits (2) Closed TBI (traumatic brain injury): Status: Acute Code(s): S06.9XAA - Unspecified intracranial injury with loss of consciousness status unknown, initial encounter (3) Subarachnoid hemorrhage: Status: Acute Code(s): I60.9 - Nontraumatic subarachnoid hemorrhage, unspecified Comment: Following head trauma and TNK administration. (4) Ischemic cerebrovascular accident (CVA): Status: Acute Code(s): I63.9 - Cerebral infarction, unspecified Comment: Right MCA distribution due to an M2 occlusion. 06/23/2023. Received TNK. No thrombectomy performed (5) STEMI (ST elevation myocardial infarction): Status: Acute Code(s): I21.3 - ST elevation (STEMI) myocardial infarction of unspecified site (6) Takotsubo cardiomyopathy: Status: Acute Code(s): I51.81 - Takotsubo syndrome (7) Urine retention: Status: Acute Code(s): R33.9 - Retention of urine, unspecified (8) Recurrent major depression resistant to treatment: Status: Acute Code(s): F33.9 - Major depressive disorder, recurrent, unspecified (9) Delirium: Status: Acute Code(s): R41.0 - Disorientation, unspecified Plan 1. Continue therapy 2. general distillery worker has reached out to 10 different [facility] psych units but has had no one except the patient yet. Most feel that she is too high acuity for them to take. 3. Tapering medications seems to be having a + results but, too early to say since she has had periods of doing very well and then has sudden decompensation. Avoid using sedative medications. Avoid antipsychotics...........Decrease the Seroquel to 12.5 mg at HS tonight. Continue to hold Keppra and keep her on a HI/LO bed with mats on both sides of the bed for safety. 4. I spoke to the microbiology lab and the urine culture has no growth at 24 hours. The culture was set up prior to her receiving a dose of Levaquin yesterday. Will hold any further antibiotics at this point and await the final culture. 5. Discontinue lactated Ringer's after she has received 2 L. Current oral fluid intake is improving and she is starting to have a better appetite and better nutritional intake. 6. Planned another voiding trial on Thursday. Allergies/Procedures Done in Hospital Allergies Penicillins [PCN] Allergy (Severe, Verified 06/23/23 07:41) Anaphylaxis Dietary and Speech Recommendations Dietitian Recommendations/Changes: continue cardiac diet as ordered; will continue to offer 120mL ensure plus high protein 120mL 4x/day w/medpass until appetite/PO intake at meals improves Discharge Plan Admission Admit Date/Time: 07/29/23 17:19 Attending Provider: Tracey Chacon Primary Care Provider: Bo Nicholas Consulting Providers: Lauryn Garcia; Sherlyn Omer; Jennifer Monreal; Akira Santana; Lina Hutchinson; URMILA JAIN; Tana Bass; Natalya Torres; Donaldo Damon; Crista Persaud Discharge Orders/Prescriptions Prescriptions: No Action vilazodone 20 mg tablet 10 mg PO DAILY magnesium 250 mg tablet 250 mg PO DAILY Hold Instructions: Order Completed letrozole 2.5 mg tablet 2.5 mg PO DAILY acetaminophen [Tylenol Arthritis Pain] 650 mg tablet extended release 650 mg PO DAILY Hold Instructions: Order Completed omeprazole 20 mg capsule,delayed release(DR/EC) 20 mg PO DAILY calcium carbonate-vitamin D3 1 TAB tablet 1 tablet PO DAILY@0800 Hold Instructions: Hold while patient is taking Neutra-Phos to avoid drug-drug interaction. Patient Comments: supplement latanoprost 1 DROP bottle 1 drp EACH EYE QHS Patient Comments: GLAUCOMA alendronate 70 mg tablet 70 mg PO Q7D mirtazapine 30 mg tablet 30 mg PO QHS levetiracetam [Keppra] 500 mg tablet 500 mg PO BID nifedipine [Procardia XL] 30 mg tablet extended release 24hr 30 mg PO DAILY polyethylene glycol 3350 [Miralax] 17 gram/dose powder 17 g PO DAILY losartan 50 mg Tablet 50 mg PO BID Qty: 0 0RF atorvastatin 40 mg Tablet 40 mg PO QHS Qty: 0 0RF carvedilol 12.5 mg Tablet 12.5 mg PO BID Qty: 0 0RF aspirin 81 mg Tablet,Delayed Release (Dr/Ec) 81 mg PO BREAKFAST Qty: 0 0RF potassium, sodium phosphates 280-160-250 mg Powder In Packet 1 packet PO TID 2 Days Qty: 6 0RF nitroglycerin 0.4 mg Tablet, Sublingual 0.4 mg sublingual Q5M PRN (Reason: Cardiac/Chest Pain) Qty: 0 0RF Vraylar 1.5 mg capsule 1.5 mg PO QODAY Referrals / Follow Up: oB Nicholas MD [Primary Care Provider] - Disposition Disposition (needs filled in before D/C Order can be placed): Psychiatric Hospital or Unit (2) Closed TBI (traumatic brain injury) Qualifiers: Encounter type: subsequent encounter Loss of consciousness presence/duration: unknown LOC status Qualified Code(s): S06.9XAD - Unspecified intracranial injury with loss of consciousness status unknown, subsequent encounter (5) STEMI (ST elevation myocardial infarction) Qualifiers: Involved coronary artery: unspecified coronary artery Qualified Code(s): I21.3 - ST elevation (STEMI) myocardial infarction of unspecified site
--- NOTE | 2023-08-08 10:00 | PCM.PROGNOTE ---
Subjective Subjective Day#1 Ancef Afebrile VSS-blood pressure is now well-controlled. Maintaining appropriate oxygen saturation on RA Oral intake - FOOD she ate 75 to 100% of her breakfast today. FLUIDS oral intake of fluid yesterday was 1100 cc. Discussed with nursing - Nursing reports that she is c/o pain in the R great toe and the bottom of her foot. Reviewed the THERAPY notes Medication list reviewed. Family reports to me that they had a great visit with her last evening and she was pleasant and appropriate. She slept well last night. She denies CP, SOB, palpitations, lightheadedness, N/V/abd pain, suprapubic pain, calf pain, cephalgia. Her only complaint is pain in the R great toe and the ball of the foot . She denies any hx of gout. Urine culture had no growth in 48H. Objective Data Objective Data Vital Signs: Vital Signs Temp Pulse Resp BP Pulse Ox O2 Del Method O2 Flow Rate 98.3 F 78 17 115/53 L 96 Room Air 2 08/08/23 08:36 08/08/23 08:36 08/08/23 08:36 08/08/23 08:36 08/08/23 08:36 08/08/23 08:36 08/07/23 08:27 Oxygen Flow Rate (L/min) 2 Oxygen Delivery Method Room Air Weight: 189 lb 13.088 oz Body Mass Index (BMI) 32.5 Intake & Output: Intake and Output for Last 24 Hours 08/06/23 08/07/23 08/08/23 23:59 23:59 23:59 Intake Total 1270 / 1270 2663.3333 / 2663.3333 120 / 120 Output Total 900 / 900 1125 / 1125 650 / 650 Balance 370 / 370 1538.3333 / 1538.3333 -530 / -530 Lab / Micro Data 08/06/23 10:50 08/06/23 10:50 Micro: Microbiology 08/06/23 13:00 Urine Catheter - Donato Urine Culture - Final Culture exhibits no growth. 08/03/23 19:40 Stool Stool Occult Blood (BHARAT) - Final Physical Exam Narrative She is calm today and very alert. She is appropriate. She is oriented X 3 and we had a lengthy discussion about politics and she was completely lucid. She tells me that she has had a lot of time to think and she has decided she can be a strong woman and a good example for her granddaughters and she needs to push on and not let depression rule her life. She is now committed to getting psychotherapy after DC from rehab and looking forward to the rest of her life. No sitter needed last night. She awoke 3 times last night but, she was easily reoriented and went back to sleep. No agitated/aggressive behavior. Not delusional today. Const alert, oriented x3 and no apparent distress General Appearance: cooperative HEENT moist oral mucous membranes Resp normal respiratory effort and clear to auscultation bilaterally Effort and Inspection: Negative for tachypneic Cardio regular rate, regular rhythm and no gallops Cardio Narrative: Able to lie flat in bed with no orthopnea. No conversational dyspnea. GI normal to inspection, nondistended, normoactive bowel sounds, soft to palpation and non-tender GI Narrative: No guarding with palpation Extremity Extremity Narrative: The R great toe has mild swelling and it is erythematous to the base of the toe but not onto the dorsum of the foot. It is tender to even light palpation. She is also very tender with palpation over the plantar surface of the first MCP joint. She has very dry skin on both feet with cracking of the skin. No erythema, swelling or pain with palpation of the L foot. No ankle edema Neuro Neuro Narrative: Slight left facial droop with flattening of the nasolabial fold. She has a symmetrical smile. Good strength on the left side but, still with extinction of the LUE and the LLE. No seizure activity. Mild ataxia with the LUE. Speech: speech normal Psych cooperative Psych Narrative: Affect is upbeat today and she is looking toward the future and not ruminating on the past. Assessment & Plan Assessment/Plan (1) Ischemic cerebrovascular accident (CVA): (2) Delirium: (3) Cellulitis: QUALIFIERS: Site of cellulitis: extremity Site of cellulitis of extremity: lower extremity Laterality: right Qualified Code(s): L03.115 - Cellulitis of right lower limb (4) Urine retention: PLAN: Plan 1. Cancel DC to [facility]. Discontinuation of the Keppra and tapering of Seroquel has greatly improved her mental status/behavior and she is no longer delirious. Motivated to do therapy and get on with her life. Able to participate in therapy effectively now. Despite delirium and everything else that has happened to her recently she is stronger on the Left side and the visual deficit has resolved. 2. She tells me that the rx to PCN was swelling and it was when she was a child. No hypotension and no respiratory compromise. Will start Ancef for suspected cellulitis of the R foot. Doubt gout. 3. CBC with diff, BMP, phos and Uric acid in the AM 4. XRAY of the R foot today. 5. DC the Seroquel. 6. DC LR. 7. Voiding trial in the AM. I suspect the anticholinergic effects of some of the medications was causing the urine retention. 8. Notified Brendon and Shonda of cancellation of transfer to [facility] 9. Will discuss with the TEAM on Thursday and make plans on how to move forward from here. Charges/Coding Visit Charges Inpatient E&M: 71580 Subs Hosp L1
--- NOTE | 2023-08-08 10:30 | NURSING ---
[facility] facility, family, and ambulance transport company aware of Doctor Oswaldo not discharging patient due to improvement in her mood. Patient is cooperative and alert but still requiring reminders and cues.
--- NOTE | 2023-08-08 12:32 | RAD_ITS ---
EXAM: XR RIGHT FOOT, 2 VIEWS CLINICAL INDICATION: pain/swelling/erythema -- great toe and first MCP joint on plantar surface TECHNIQUE: Frontal and lateral views of the right foot. COMPARISON: No relevant prior studies available. FINDINGS: BONES/JOINTS: Diffuse osteopenia. Arthritic changes at the tibiotalar joint, subtalar joint, throughout the midfoot, throughout the forefoot. Hypertrophic changes of the first metatarsal head with bunion formation. Second through fourth digit hammertoe deformities. No acute fracture. No sclerotic or destructive changes observed. No distinct erosive changes or periosteal reaction. SOFT TISSUES: Mild diffuse soft tissue swelling. No radiopaque foreign body. RAD/Foot 2 Views IMPRESSION: Osteopenia and degenerative changes. Soft tissue swelling. No acute osseous findings. Electronically Signed: Navarro Mckeon DO at 16:23 EST ,
[2023-08-08] MEDS: Cefazolin 1 GM/50 ML BAG IV ×2 (13:08→21:30)
[2023-08-08] MEDS: Mirtazapine 30 MG Tablet PO (20:28)
[2023-08-08] MEDS: Atorvastatin Calcium 40 MG Tablet PO (20:28)
[2023-08-08] MEDS: Latanoprost 0.005% 1 Bottle 1 DRP EACH EYE (20:29)
[2023-08-08] MEDS: Petrolatum 33% Tube 1 APPLIC TOPICAL (20:31)
[2023-08-08 22:00] VITALS: BP 140/66; PULSE 74; RESP 18; TEMP 36.6; O2SAT 94
[2023-08-09] MEDS: 0.9% Saline Lock 10 ML Syringe IV ×4 (04:23→21:20)
[2023-08-09 04:52] VITALS: BMI 32.3
[2023-08-09 05:06] LABS: Absolute Lymphocyte Count 1.83 X10^3/uL (0.83-4.51); Absolute Neutrophil Count 4.9 X10^3/uL (2.0-7.7); Basophil# 0.12 X10^3/uL; Basophil% 1.5 % (0-1); Eosinophil# 0.57 X10^3/uL; Eosinophils% 7.1 % (0-5); Hematocrit 33.1 % (37-47); Hemoglobin 10.5 g/dL (12.0-15.0); Lymphocyte # 1.83 X10^3/ul (0.83-4.51); Lymphocyte % 22.7 % (19-41); Mean Corp Hgb Conc 31.7 g/dL (32-36); Mean Corpuscular Hgb 30.2 pg (27.0-32.0); Mean Corpuscular Volume 95.1 fL (81-99); Mean Platelet Vol. 12.2 fl (6.2-12.0); Monocyte# 0.59 X10^3/uL; Monocyte% 7.3 % (0-10); NRBC Flagged by Analyzer 0 % (0-5); Neutrophil # 4.91 X10^3/uL (2.7-7.7); Platelet Count 412 K/mm3 (150-450); RBC Distribution Width CV 13.8 % (11.6-14.6); RBC Distribution Width SD 48.1 fl (35.1-43.9); Red Blood Count 3.48 M/mm3 (4.2-5.4); White Blood Count 8.1 K/mm3 (4.4-11.0)
[2023-08-09] MEDS: Alendronate Sodium 70 MG Tablet PO (05:10)
[2023-08-09] MEDS: Cefazolin 1 GM/50 ML BAG IV ×3 (05:10→21:23)
[2023-08-09 06:51] LABS: Anion Gap 3 (5-15); BUN 8 mg/dL (7-18); BUN/Creat Ratio 12.8 RATIO (10-20); Chloride 116 mmol/L (98-107); Creatinine, Serum 0.62 mg/dL (0.55-1.02); EST Glomerular Filtration Rate 99 mL/min (>60); Est Glom Filt Rate - Afr Amer 120 mL/min (>60); Estimated Creatinine Clearance 65.27 ml/min; Glucose 83 mg/dL (74-106); Phosphorus 2.2 mg/dL (2.5-4.9); Potassium 3.5 mmol/L (3.5-5.1); Sodium Level 142 mmol/L (136-145)
[2023-08-09 08:00] VITALS: BP 139/59; PULSE 75; RESP 17; TEMP 37; O2SAT 97
[2023-08-09] MEDS: NIFEdipine 30 MG Tablet PO (09:37)
[2023-08-09] MEDS: Polyethylene Glycol 3350 17 GM PACKET PO (09:37)
[2023-08-09] MEDS: Senna/Docusate Sodium 1 Tablet 2 TABLET PO ×2 (09:37→21:22)
[2023-08-09] MEDS: Carvedilol 12.5 MG Tablet PO ×2 (09:37→17:23)
[2023-08-09] MEDS: Aspirin E.C. 81 MG Tablet PO (09:37)
[2023-08-09] MEDS: Pantoprazole Sodium 20 MG Tablet PO (09:38)
[2023-08-09] MEDS: Losartan Potassium 50 MG Tablet PO ×2 (09:38→21:22)
[2023-08-09] MEDS: Magnesium Chloride 64 MG Delay Rel.Tablet 128 MG PO (09:38)
[2023-08-09] MEDS: Enoxaparin 40 MG/0.4 ML Syringe SC (09:40)
[2023-08-09] MEDS: Acetaminophen 325 MG Tablet 650 MG PO (09:41)
[2023-08-09] MEDS: Petrolatum 33% Tube 1 APPLIC TOPICAL ×2 (09:46→21:23)
[2023-08-09] MEDS: Na Biphos/Potassium Phosphate PACKET 1 PACKET PO ×2 (13:02→21:22)
[2023-08-09] MEDS: Latanoprost 0.005% 1 Bottle 1 DRP EACH EYE (21:22)
[2023-08-09] MEDS: Mirtazapine 30 MG Tablet PO (21:22)
[2023-08-09] MEDS: Atorvastatin Calcium 40 MG Tablet PO (21:23)
[2023-08-09 22:00] VITALS: BP 138/62; PULSE 75; RESP 17; TEMP 36.4; O2SAT 96
[2023-08-10 04:26] VITALS: BMI 31.9
[2023-08-10] MEDS: 0.9% Saline Lock 10 ML Syringe IV ×2 (05:07→22:18)
[2023-08-10] MEDS: Cefazolin 1 GM/50 ML BAG IV ×3 (05:07→22:18)
[2023-08-10] MEDS: Na Biphos/Potassium Phosphate PACKET 1 PACKET PO ×3 (05:08→22:23)
[2023-08-10] MEDS: Aspirin E.C. 81 MG Tablet PO (07:48)
[2023-08-10] MEDS: Acetaminophen 325 MG Tablet 650 MG PO (07:48)
[2023-08-10] MEDS: Senna/Docusate Sodium 1 Tablet 2 TABLET PO ×2 (07:48→22:20)
[2023-08-10] MEDS: Enoxaparin 40 MG/0.4 ML Syringe SC (07:48)
[2023-08-10] MEDS: Losartan Potassium 50 MG Tablet PO ×2 (07:49→22:22)
[2023-08-10] MEDS: Carvedilol 12.5 MG Tablet PO ×2 (07:49→17:45)
[2023-08-10] MEDS: Magnesium Chloride 64 MG Delay Rel.Tablet 128 MG PO (07:49)
[2023-08-10] MEDS: Pantoprazole Sodium 20 MG Tablet PO (07:50)
[2023-08-10] MEDS: Polyethylene Glycol 3350 17 GM PACKET PO (07:50)
[2023-08-10] MEDS: NIFEdipine 30 MG Tablet PO (07:50)
[2023-08-10] MEDS: Petrolatum 33% Tube 1 APPLIC TOPICAL ×2 (07:51→22:22)
[2023-08-10 09:17] VITALS: BP 129/56; PULSE 79; RESP 16; TEMP 36.8; O2SAT 95
--- NOTE | 2023-08-10 09:30 | CASEMGMT ---
Social Work SW was contacted from nursing on 08/07 notifying this worker that canceled DC to [facility]. SW phoned Emelia at Intake to touch base and will keep her updated if pt will still need placed in the future. Team meeting with family this afternoon. KAROLINE will continue to follow. JUAN KamW
--- NOTE | 2023-08-10 12:23 | PCM.PROGNOTE ---
Subjective Subjective Sherri was seen on team rounds today. Her Brendon was present in the room. Daughter Shonda was unable to participate by phone today. All questions were answered to the patient and her satisfaction. Afebrile VSS-blood pressure is well-controlled and the heart rate is within normal limits. Maintaining appropriate oxygen saturation on RA Oral intake - FOOD fair, eating 50 to 74% of most meals now. FLUIDS adequate She was bladder scanned this morning at 4 AM for 788 cc but after voiding a postvoid residual was 135. Donato catheter remains out. Discussed with nursing -nursing reports that she was restless last night however she did stay in bed and had no alarms. Night nursing reports she is complaining of pain in her feet. Day nursing yesterday reported to me that she had no pain in her feet. Reviewed the THERAPY notes Medication list reviewed. Sherri tells me that the pain in the R foot has improved significantly. She had another bad dream last night and a restless night. She looks fatigued today. she was able to do her 3 hours of therapy today. Sherri denies chest pain, shortness of breath, lightheadedness, nausea/vomiting/abdominal pain, dysuria and calf pain. She is complaining of some pain in the anterior tibia area extending from the knee to the ankle and she has been plagued by this intermittently for at least 6 months. She tells me that it resolves with Voltaren gel. Objective Data Objective Data Vital Signs: Vital Signs Temp Pulse Resp BP Pulse Ox O2 Del Method O2 Flow Rate 98.3 F 79 16 129/56 H 95 Room Air 2 08/10/23 09:17 08/10/23 09:17 08/10/23 09:17 08/10/23 09:17 08/10/23 09:17 08/10/23 09:17 08/07/23 08:27 Oxygen Flow Rate (L/min) 2 Oxygen Delivery Method Room Air Weight: 186 lb 4.65 oz Body Mass Index (BMI) 31.9 Intake & Output: Intake and Output for Last 24 Hours 08/08/23 08/09/23 08/10/23 23:59 23:59 23:59 Intake Total 2220 / 2420 1430 / 1430 350 / 350 Output Total 1300 / 1600 1500 / 1500 1025 / 1025 Balance 920 / 820 -70 / -70 -675 / -675 Lab / Micro Data 08/09/23 04:16 08/09/23 04:16 Micro: Microbiology 08/06/23 13:00 Urine Catheter - Donato Urine Culture - Final Culture exhibits no growth. 08/03/23 19:40 Stool Stool Occult Blood (BHARAT) - Final Physical Exam Narrative She is calm today and very alert. She is appropriate. She is oriented X 3 and we had a lengthy discussion about politics and she was completely lucid. She tells me that she has had a lot of time to think and she has decided she can be a strong woman and a good example for her granddaughters and she needs to push on and not let depression rule her life. She is now committed to getting psychotherapy after DC from rehab and looking forward to the rest of her life. No sitter needed last night. She awoke 3 times last night but, she was easily reoriented and went back to sleep. No agitated/aggressive behavior. Not delusional today. Const alert and no apparent distress Constitutional Narrative: Looks tired. Gets upset when talking about her dreams . General Appearance: cooperative Orientation / Consciousness: confused HEENT head/scalp atraumatic and moist oral mucous membranes Eyes PERRL and EOMs intact bilaterally Eyes Narrative: She is able to find me on her left side and she is making eye contact with me when I am speaking with her. Less neglect. Neck No nuchal rigidity, supple, No nodes and No no carotid bruits General: trachea midline Resp clear to auscultation bilaterally Resp Narrative: No conversational dyspnea Effort and Inspection: Negative for tachypneic Cardio regular rate, regular rhythm, no murmurs and no gallops Cardio Narrative: Able to lie flat in bed with no orthopnea. No conversational dyspnea. GI normal to inspection, nondistended, normoactive bowel sounds, soft to palpation and non-tender GI Narrative: No guarding with palpation Extremity no calf tenderness Extremity Narrative: The R great toe has mild swelling and it is erythematous to the base of the toe but not onto the dorsum of the foot. It is tender to even light palpation. She is also very tender with palpation over the plantar surface of the first MCP joint. She has very dry skin on both feet with cracking of the skin. No erythema, swelling or pain with palpation of the L foot. No ankle edema General Extremity: Negative for edema Skin Skin Narrative: Skin is dry and tents. General Skin Exam: no breakdown Rashes: no rashes Neuro Neuro Narrative: Slight left facial droop with flattening of the nasolabial fold. She has a symmetrical smile. Good strength on the left side but, still with extinction of the LUE and the LLE. No seizure activity. Mild ataxia with the LUE. Speech: speech normal Psych cooperative and affect normal Psych Narrative: Having disturbing dreams but, she can be distracted from perseverating on the dreams. I think the dreams are scary for her because she remembers some of what she went through with the extreme agitation and delusions related to Keppra and antipsychotic. She is appropriate with me. Appearance: appropriate Attitude: No agitated Activity / Motor Behavior: Negative for restless Mood & Affect: Negative for flat affect Thought Content: No suicidality and No hallucination(s) Assessment & Plan Assessment/Plan (1) Ischemic cerebrovascular accident (CVA): (2) Delirium: PLAN: Much better. Still having some bad dreams and this scares her. (3) Cellulitis: QUALIFIERS: Laterality: right Site of cellulitis: extremity Site of cellulitis of extremity: lower extremity Qualified Code(s): L03.115 - Cellulitis of right lower limb PLAN: Improving with antibiotics......tolerating Ancef with no adverse drug reactions. (4) Urine retention: PLAN: Donato is out and she is not having any residuals > 200. I suspect the urine retention was due to the combined effects of the stroke and the anticholinergic properties of Seroquel. PLAN: Plan 1. Continue therapy 2. Would like not to have to start any new medications for the next few days. Mood is still labile. Would like Keppra and Seroquel to completely wash out and re-evaluate. 3. Will not be able to go home from rehab. At some point she will need to be transferred to a SNF. 4. Needs psychotherapy and consult with a psychiatrist when transferred to senior living. Charges/Coding Visit Charges Inpatient E&M: 19992 Subs Hosp L2
--- NOTE | 2023-08-10 13:41 | CASEMGMT ---
Addendum entered by Frances Huff 08/12/23 16:34: SW spoke with who provided two other options: [facility] and [facility]. [facility] completed an onsite and can accept, as long as pt has no issues tonight, then they can accept for 08/13. SW updated and IDT. Will continue to follow. Addendum entered by Frances Huff 08/12/23 09:25: SW phoned to inquire about SNF preferences. requested: [facility] and inquired about [facility], [facility] and [facility]. SW reiterated all 3 have denied already, and requested another option in case [facility] denies as well, as the insurance update is today. expressed understanding and will contact this worker by this afternoon. SW sent referral to [facility] via [facility]. Will continue to follow. Original Note: Social Work IDT met with patient, then dtr via conference call for Team meeting. Discussed patient's progress in PT/OT/ST/SN. Educated to [facility] insurance with [employer] 08/11 and continued stay is not guaranteed with each review. IDT collectively note pt's significant improvement over the past few days. is requesting pt remain on RU if pt maintains behavioral stability. However, for DC plans, IDT is still recommending a SNF from , prior to home/until can care for pt. SW requested additional facilities to refer to as [facility] and [facility] both denied. agreed. SW will continue to follow for DC planning. Will ReTeam weekly. JUAN Kam
[2023-08-10 20:26] VITALS: PULSE 90
[2023-08-10 22:00] VITALS: BP 130/58; PULSE 78; RESP 15; TEMP 36.4; O2SAT 96
[2023-08-10] MEDS: Atorvastatin Calcium 40 MG Tablet PO (22:21)
[2023-08-10] MEDS: Mirtazapine 30 MG Tablet PO (22:24)
[2023-08-10] MEDS: Latanoprost 0.005% 1 Bottle 1 DRP EACH EYE (22:24)
[2023-08-11 03:37] VITALS: BMI 32.1
[2023-08-11] MEDS: 0.9% Saline Lock 10 ML Syringe IV ×2 (05:41→20:20)
[2023-08-11] MEDS: Cefazolin 1 GM/50 ML BAG IV (05:41)
[2023-08-11] MEDS: Na Biphos/Potassium Phosphate PACKET 1 PACKET PO (05:48)
[2023-08-11 07:42] VITALS: BP 150/59; PULSE 86; RESP 16; TEMP 36.9; O2SAT 95
[2023-08-11] MEDS: NIFEdipine 30 MG Tablet PO (08:56)
[2023-08-11] MEDS: Pantoprazole Sodium 20 MG Tablet PO (08:56)
[2023-08-11] MEDS: Senna/Docusate Sodium 1 Tablet 2 TABLET PO ×2 (08:56→20:19)
[2023-08-11] MEDS: Losartan Potassium 50 MG Tablet PO ×2 (08:57→20:19)
[2023-08-11] MEDS: Magnesium Chloride 64 MG Delay Rel.Tablet 128 MG PO (08:58)
[2023-08-11] MEDS: Acetaminophen 325 MG Tablet 650 MG PO (08:59)
[2023-08-11] MEDS: Carvedilol 12.5 MG Tablet PO ×2 (09:00→17:12)
[2023-08-11] MEDS: Aspirin E.C. 81 MG Tablet PO (09:00)
[2023-08-11] MEDS: Enoxaparin 40 MG/0.4 ML Syringe SC (09:07)
[2023-08-11] MEDS: Polyethylene Glycol 3350 17 GM PACKET PO (09:07)
[2023-08-11] MEDS: Petrolatum 33% Tube 1 APPLIC TOPICAL ×2 (09:08→20:17)
[2023-08-11 13:05] VITALS: O2SAT 95
[2023-08-11] MEDS: Cephalexin 500 MG Capsule PO ×2 (13:45→20:17)
--- NOTE | 2023-08-11 15:45 | PCM.PROGNOTE ---
Subjective Subjective Afebrile Vital signs stable Maintaining appropriate oxygen saturation on room air Appetite is improving and she is usually getting 50 to 74% of her meal. Restless again last night and had another bad dream . She can be calmed down now by talking with her and is not needing any sedation. Tells me the pain in her R foot is much better. Denies chest pain, shortness of breath, palpitations, lightheadedness, dysuria, abdominal pain, calf pain. She c/o pain over the anterior tibia BL which she has had for a while now. It is intermittent and Voltaren has helped in the past. Objective Data Objective Data Vital Signs: Vital Signs Temp Pulse Resp BP Pulse Ox O2 Del Method O2 Flow Rate 98.4 F 86 16 150/59 H 95 Room Air 2 08/11/23 07:42 08/11/23 07:42 08/11/23 07:42 08/11/23 07:42 08/11/23 07:42 08/11/23 07:42 08/07/23 08:27 Oxygen Flow Rate (L/min) 2 Oxygen Delivery Method Room Air Weight: 187 lb 6.287 oz Body Mass Index (BMI) 32.1 Intake & Output: Intake and Output for Last 24 Hours 08/09/23 08/10/23 08/11/23 23:59 23:59 23:59 Intake Total 1430 / 1430 1550 / 1550 550 / 550 Output Total 1500 / 1500 1275 / 1275 600 / 600 Balance -70 / -70 275 / 275 -50 / -50 Lab / Micro Data 08/09/23 04:16 08/09/23 04:16 Micro: Microbiology 08/06/23 13:00 Urine Catheter - Donato Urine Culture - Final Culture exhibits no growth. 08/03/23 19:40 Stool Stool Occult Blood (BHARAT) - Final Physical Exam Narrative She is calm today and very alert. She is appropriate. She is oriented X 3 and we had a lengthy discussion about politics and she was completely lucid. She tells me that she has had a lot of time to think and she has decided she can be a strong woman and a good example for her granddaughters and she needs to push on and not let depression rule her life. She is now committed to getting psychotherapy after DC from rehab and looking forward to the rest of her life. No sitter needed last night. She awoke 3 times last night but, she was easily reoriented and went back to sleep. No agitated/aggressive behavior. Not delusional today. Const alert Constitutional Narrative: Perseverating on the dream she had last night........I was able to distract her and she stopped whimpering and was able to converse with me. she looks fatigued today and has not slept well for the past 2 nights. No longer trying to get out of bed by herself. General Appearance: cooperative Orientation / Consciousness: confused HEENT head/scalp atraumatic and moist oral mucous membranes Eyes PERRL and EOMs intact bilaterally Eyes Narrative: She is able to find me on her left side and she is making eye contact with me when I am speaking with her. Less neglect. Neck No nuchal rigidity, supple, No nodes and No no carotid bruits General: trachea midline Resp clear to auscultation bilaterally Resp Narrative: No conversational dyspnea Effort and Inspection: Negative for tachypneic or labored Cardio regular rate, regular rhythm, no rub and no gallops Cardio Narrative: Able to lie flat in bed with no orthopnea. No conversational dyspnea. GI normal to inspection, nondistended, normoactive bowel sounds, soft to palpation and non-tender GI Narrative: No guarding with palpation Extremity no calf tenderness Extremity Narrative: The R great toe has no erythema and no swelling today. I can deeply palpate the plantar surface of the R first MTP and she had no c/o pain. No warmth to touch of the toe or the plantar surface of the R foot. The skin is much better moisturized and no longer cracking . General Extremity: Negative for clubbing, cyanosis or edema Skin Skin Narrative: Skin is dry and tents. General Skin Exam: no breakdown Rashes: no rashes Neuro Neuro Narrative: Slight left facial droop with flattening of the nasolabial fold. She has a symmetrical smile. Good strength on the left side but, still with extinction of the LUE and the LLE. No seizure activity. Mild ataxia with the LUE. Speech: speech normal Psych cooperative and affect normal Psych Narrative: Mood is still labile. Tearful at times and having bad dreams at night primarily. No hallucinations. Not agitated, she can be talked down now. Having trouble distinguishing what is reality and what is a dream . Appearance: appropriate Attitude: No agitated Activity / Motor Behavior: Negative for restless Mood & Affect: Negative for flat affect Thought Content: No suicidality and No hallucination(s) Assessment & Plan Assessment/Plan (1) Debility: (2) Ischemic cerebrovascular accident (CVA): (3) Cellulitis: QUALIFIERS: Site of cellulitis: extremity Site of cellulitis of extremity: lower extremity Laterality: right Qualified Code(s): L03.115 - Cellulitis of right lower limb PLAN: Improving with antibiotics......tolerating Ancef with no adverse drug reactions. R foot. (4) Delirium: PLAN: Much improved with the discontinuation of antipsychotic and Keppra. Still having some difficulty distinguishing what is reality at times and what is a dream. Seems to get worse with sleep deprivation. (5) Uncontrolled hypertension: PLAN: Coming under better control with the addition of Procardia to the current drug regimen. (6) Closed TBI (traumatic brain injury): QUALIFIERS: Encounter type: subsequent encounter Loss of consciousness presence/duration: unknown LOC status Qualified Code(s): S06.9XAD - Unspecified intracranial injury with loss of consciousness status unknown, subsequent encounter PLAN: Plan 1 continue therapy 2. Add melatonin 3 mg p.o. nightly to her current drug regimen. Prefer not to add any additional psychoactive drugs at this time but will continue to monitor closely. Procardia can cause sleep disturbances and nightmares........if no improvement with Melatonin may need to DC Procardia and chose another antihypertensive. 3. Avoid polypharmacy as much as possible. Charges/Coding Visit Charges Inpatient E&M: 25397 Subs Hosp L1
--- NOTE | 2023-08-11 16:00 | CHAPLAIN ---
Type of Pastoral Visit ___ Initial Visit _x__ Follow-up Visit ___ On-call Visit ___ General Patient Visit ___ Spiritual Assessment ___ Family Conference ___ Bereavement ___ Rapid Response ___ Code Blue ___ Other (describe below) Pastoral Care Referral From _x__ Patient _x__ Family ___ Nurse ___ Physician ___ Director Of Exhibit Development ___ Cage Tender ___ Other (describe below) Sacrament/Intervention _x__ Active listening ___ Anointing ___ Yarsanism ___ Bereavement ___ Communion ___ Marielos exploration ___ _x__ Life review _x__ Prayer ___ Reconciliation ___ Sacrament of Sick _x__ Supportive presence ___ Wedding ___ Other (describe below) Pastoral Comments patient can articulate her thoughts for the most part and uses some humor to speak of her life and her family; pt presents self with a positive attitude and that she is working on getting better; pt welcomes someone to talk with and for the prayers offered at the conclusion
[2023-08-11 16:59] VITALS: BMI 32.1
[2023-08-11 20:12] VITALS: BP 133/74; PULSE 74; RESP 15; TEMP 36.8; O2SAT 97
[2023-08-11] MEDS: MELATONIN 3 MG TABLET PO (20:16)
[2023-08-11] MEDS: Arthritis Pain Compound 60 CLICK TUBE TOPICAL (20:16)
[2023-08-11] MEDS: Latanoprost 0.005% 1 Bottle 1 DRP EACH EYE (20:18)
[2023-08-11] MEDS: Mirtazapine 30 MG Tablet PO (20:19)
[2023-08-11] MEDS: Atorvastatin Calcium 40 MG Tablet PO (20:19)
[2023-08-12 00:33] VITALS: BMI 32.1
[2023-08-12] MEDS: Acetaminophen 325 MG Tablet 650 MG PO (00:58)
[2023-08-12] MEDS: Cephalexin 500 MG Capsule PO ×3 (04:57→21:52)
[2023-08-12 05:15] VITALS: BMI 31.7
[2023-08-12 07:23] VITALS: BP 129/53; PULSE 66; RESP 16; TEMP 36.6; O2SAT 98
[2023-08-12] MEDS: Carvedilol 12.5 MG Tablet PO ×2 (09:20→16:26)
[2023-08-12] MEDS: Senna/Docusate Sodium 1 Tablet 2 TABLET PO ×2 (09:20→21:55)
[2023-08-12] MEDS: NIFEdipine 30 MG Tablet PO (09:20)
[2023-08-12] MEDS: Losartan Potassium 50 MG Tablet PO ×2 (09:20→21:53)
[2023-08-12] MEDS: Pantoprazole Sodium 20 MG Tablet PO (09:20)
[2023-08-12] MEDS: Enoxaparin 40 MG/0.4 ML Syringe SC (09:20)
[2023-08-12] MEDS: Polyethylene Glycol 3350 17 GM PACKET PO (09:21)
[2023-08-12] MEDS: Aspirin E.C. 81 MG Tablet PO (09:21)
[2023-08-12] MEDS: Magnesium Chloride 64 MG Delay Rel.Tablet 128 MG PO (09:21)
[2023-08-12] MEDS: Arthritis Pain Compound 60 CLICK TUBE TOPICAL ×2 (09:21→21:51)
[2023-08-12] MEDS: Petrolatum 33% Tube 1 APPLIC TOPICAL ×2 (09:25→21:54)
[2023-08-12 17:00] VITALS: BMI 31.7
[2023-08-12 20:08] VITALS: BP 142/70; PULSE 78; RESP 16; TEMP 36.9; O2SAT 95
[2023-08-12] MEDS: Mirtazapine 30 MG Tablet PO (21:52)
[2023-08-12] MEDS: MELATONIN 3 MG TABLET PO (21:52)
[2023-08-12] MEDS: Atorvastatin Calcium 40 MG Tablet PO (21:52)
[2023-08-12] MEDS: Latanoprost 0.005% 1 Bottle 1 DRP EACH EYE (21:54)
[2023-08-13 00:10] VITALS: BMI 31.7
[2023-08-13] MEDS: Cephalexin 500 MG Capsule PO ×3 (05:23→21:39)
[2023-08-13] MEDS: 0.9% Saline Lock 10 ML Syringe IV ×3 (05:23→21:46)
[2023-08-13 05:28] VITALS: BMI 31.7
[2023-08-13 08:10] VITALS: BP 128/55; PULSE 76; RESP 17; TEMP 36.9; O2SAT 96
[2023-08-13] MEDS: Aspirin E.C. 81 MG Tablet PO (08:12)
[2023-08-13] MEDS: Carvedilol 12.5 MG Tablet PO ×2 (08:12→17:04)
[2023-08-13] MEDS: Arthritis Pain Compound 60 CLICK TUBE TOPICAL ×2 (08:12→21:36)
[2023-08-13] MEDS: Losartan Potassium 50 MG Tablet PO ×2 (08:13→21:38)
[2023-08-13] MEDS: Enoxaparin 40 MG/0.4 ML Syringe SC (08:13)
[2023-08-13] MEDS: Pantoprazole Sodium 20 MG Tablet PO (08:14)
[2023-08-13] MEDS: NIFEdipine 30 MG Tablet PO (08:14)
[2023-08-13] MEDS: Magnesium Chloride 64 MG Delay Rel.Tablet 128 MG PO (08:14)
[2023-08-13] MEDS: Senna/Docusate Sodium 1 Tablet 2 TABLET PO ×2 (08:15→21:39)
[2023-08-13] MEDS: Petrolatum 33% Tube 1 APPLIC TOPICAL ×2 (08:15→21:40)
--- NOTE | 2023-08-13 10:26 | CASEMGMT ---
Social Work SW confirmed with nursing that pt had no issues last night. SW updated [facility] and sent updated therapy notes for SNF to start precert. SW placed pt on Will Call for cot transport through [facility]. 7000 started. Plan: DC to [facility] [place], kasey, pending precert JUAN Kam
[2023-08-13 11:52] VITALS: BMI 31.7
--- NOTE | 2023-08-13 16:23 | PN_ITS ---
Subjective Subjective Afebrile VSS Maintaining appropriate oxygen saturation on RA Oral intake - FOOD erratic.....eats snacks/sweets from home FLUIDS fair Discussed with nursing - no problems that need addressed. Slept well last nig ht. No agitation. Tolerating Melatonin with no adverse side effects. Very cooperative. Had a good meeting with the title insurance sales representative from [place]. Reviewed the THERAPY notes Medication list reviewed. She had a little chest pain this afternoon....at the time she was tightening her muscles at the wall rail trying to maintain standing balance. The pain went away completely the minute she sat down. She denies shortness of breath, palpitations, nausea/vomiting/abdominal pain, diarrhea/constipation, dysuria and calf pain. Objective Data Objective Data Vital Signs: Vital Signs Temp Pulse Resp BP Pulse Ox O2 Del Method O2 Flow Rate 98.5 F 76 17 128/55 H 96 Room Air 2 08/13/23 08:10 08/13/23 08:10 08/13/23 08:10 08/13/23 08:10 08/13/23 08:10 08/13/23 08:10 08/07/23 08:27 Oxygen Flow Rate (L/min) 2 Oxygen Delivery Method Room Air Weight: 186 lb Body Mass Index (BMI) 31.7 Intake & Output: Intake and Output for Last 24 Hours 08/11/23 08/12/23 08/13/23 23:59 23:59 23:59 Intake Total 550 / 670 1000 / 1000 540 / 540 Output Total 600 / 600 800 / 800 500 / 500 Balance -50 / 70 200 / 200 40 / 40 Lab / Micro Data 08/09/23 04:16 08/09/23 04:16 Micro: Microbiology 08/06/23 13:00 Urine Catheter - Donato Urine Culture - Final Culture exhibits no growth. 08/03/23 19:40 Stool Stool Occult Blood (BHARAT) - Final Physical Exam Const alert General Appearance: cooperative Orientation / Consciousness: Negative for confused HEENT head/scalp atraumatic Mouth: dry mucous membranes Eyes PERRL and EOMs intact bilaterally Neck supple Resp normal respiratory effort and clear to auscultation bilaterally Resp Narrative: No conversational dyspnea Effort and Inspection: Negative for tachypneic Cardio regular rate, regular rhythm, no murmurs, no rub and no gallops GI normal to inspection, nondistended, normoactive bowel sounds, soft to palpation and non-tender GI Narrative: No guarding with palpation Extremity no calf tenderness General Extremity: Negative for edema Skin General Skin Exam: no breakdown Rashes: no rashes Psych cooperative and affect normal Psych Narrative: Has not had tears for a few days now. She does much better when she gets adequate sleep and the Melatonin is helping with this. She has given me the name of a psychiatrist she would like to follow up with post DC. She has had severe adverse reactions to antipsychotics with severe agitation and delirium. Currently she is only taking Remeron 20 mg at . she came to use on Viibryd 40 mg daily and Remeron 30 mg daily and was anxious, agitated and confused on this combination. She is stable to the present time and I see no need to change the antidepressant at this time. she is eating, sleeping, cooperative and motivated to do therapy and get better. Will defer any changes in the psych medications to psychiatry. She is calm and not fidgety/restless. No agitation at all. She can be reasoned with and is in a good place right now. Assessment & Plan Assessment/Plan (1) Debility: (2) Ischemic cerebrovascular accident (CVA): (3) Uncontrolled hypertension: PLAN: Coming under better control with the addition of Procardia to the current drug regimen. (4) Closed TBI (traumatic brain injury): QUALIFIERS: Encounter type: subsequent encounter Loss of consciousness presence/duration: unknown LOC status Qualified Code(s): S06.9XAD - Unspecified intracranial injury with loss of consciousness status unknown, subsequent encounter (5) Depression: PLAN: Stable at this point in time with no adverse side effects to the Remeron 30 mg nightly. No further adjustments to antidepressant medications are indicated at this time as she is doing well. Would avoid polypharmacy going forward. Would avoid antipsychotics as she had delirium/severe agitation/confusion with both Seroquel and Vraylar. Keppra also likely contributed to agitation/aggression. PLAN: Plan 1. Plan DC to [place] IF we get precertification tomorrow. 2. when I know for sure that she is being discharged will try and schedule and appt with the psychiatrist she would like to see post DC to deal with issues she has had for many years. Has never had psychotherapy in the past and antidepressants alone have not been effective in controlling depression. Charges/Coding Visit Charges Inpatient E&M: 89519 Subs Hosp L1
[2023-08-13 20:27] VITALS: BP 147/62; PULSE 78; RESP 16; TEMP 36.9; O2SAT 96
[2023-08-13] MEDS: Latanoprost 0.005% 1 Bottle 1 DRP EACH EYE (21:38)
[2023-08-13] MEDS: Atorvastatin Calcium 40 MG Tablet PO (21:38)
[2023-08-13] MEDS: MELATONIN 3 MG TABLET PO (21:38)
[2023-08-13] MEDS: Mirtazapine 30 MG Tablet PO (21:39)
[2023-08-14] MEDS: Cephalexin 500 MG Capsule PO ×3 (05:32→22:29)
[2023-08-14 05:40] VITALS: BMI 31.7
[2023-08-14 08:48] VITALS: BP 158/66; PULSE 74; RESP 16; TEMP 36.9; O2SAT 94
[2023-08-14] MEDS: Aspirin E.C. 81 MG Tablet PO (09:06)
[2023-08-14] MEDS: Losartan Potassium 50 MG Tablet PO ×2 (09:06→22:30)
[2023-08-14] MEDS: Senna/Docusate Sodium 1 Tablet 2 TABLET PO ×2 (09:06→22:23)
[2023-08-14] MEDS: Pantoprazole Sodium 20 MG Tablet PO (09:06)
[2023-08-14] MEDS: Carvedilol 12.5 MG Tablet PO ×2 (09:06→16:56)
[2023-08-14] MEDS: NIFEdipine 30 MG Tablet PO (09:06)
[2023-08-14] MEDS: Magnesium Chloride 64 MG Delay Rel.Tablet 128 MG PO (09:06)
[2023-08-14] MEDS: Enoxaparin 40 MG/0.4 ML Syringe SC (09:07)
[2023-08-14] MEDS: Petrolatum 33% Tube 1 APPLIC TOPICAL ×2 (09:07→22:31)
[2023-08-14] MEDS: Arthritis Pain Compound 60 CLICK TUBE TOPICAL ×2 (09:08→22:24)
[2023-08-14 22:00] VITALS: BP 133/55; PULSE 75; RESP 16; TEMP 36.5; O2SAT 98
[2023-08-14] MEDS: Atorvastatin Calcium 40 MG Tablet PO (22:23)
[2023-08-14] MEDS: Latanoprost 0.005% 1 Bottle 1 DRP EACH EYE (22:28)
[2023-08-14] MEDS: Mirtazapine 30 MG Tablet PO (22:30)
[2023-08-14] MEDS: MELATONIN 3 MG TABLET PO (22:30)
[2023-08-14] MEDS: 0.9% Saline Lock 10 ML Syringe IV (22:58)
[2023-08-15 00:06] VITALS: BMI 31.7
[2023-08-15 04:26] VITALS: BMI 31.1
[2023-08-15] MEDS: Cephalexin 500 MG Capsule PO ×3 (05:25→21:32)
[2023-08-15 09:02] VITALS: BP 146/57; PULSE 71; RESP 18; TEMP 36.8; O2SAT 97
[2023-08-15] MEDS: Aspirin E.C. 81 MG Tablet PO (09:30)
[2023-08-15] MEDS: NIFEdipine 30 MG Tablet PO (09:30)
[2023-08-15] MEDS: Carvedilol 12.5 MG Tablet PO ×2 (09:30→16:43)
[2023-08-15] MEDS: Losartan Potassium 50 MG Tablet PO ×2 (09:30→21:32)
[2023-08-15] MEDS: Magnesium Chloride 64 MG Delay Rel.Tablet 128 MG PO (09:30)
[2023-08-15] MEDS: Pantoprazole Sodium 20 MG Tablet PO (09:30)
[2023-08-15] MEDS: Arthritis Pain Compound 60 CLICK TUBE TOPICAL ×2 (09:31→21:31)
[2023-08-15] MEDS: Senna/Docusate Sodium 1 Tablet 2 TABLET PO ×2 (09:31→21:33)
[2023-08-15] MEDS: Enoxaparin 40 MG/0.4 ML Syringe SC (09:32)
[2023-08-15] MEDS: Polyethylene Glycol 3350 17 GM PACKET PO (09:32)
[2023-08-15] MEDS: Petrolatum 33% Tube 1 APPLIC TOPICAL ×2 (09:54→21:36)
[2023-08-15 12:12] VITALS: BMI 31.1
[2023-08-15] MEDS: Magnesium Hydroxide 30 ML UDC PO (17:07)
[2023-08-15] MEDS: 0.9% Saline Lock 10 ML Syringe IV ×2 (17:14→21:41)
[2023-08-15 19:44] VITALS: BP 146/68; PULSE 75; RESP 16; TEMP 36.8; O2SAT 98
[2023-08-15] MEDS: MELATONIN 3 MG TABLET PO (21:31)
[2023-08-15] MEDS: Atorvastatin Calcium 40 MG Tablet PO (21:32)
[2023-08-15] MEDS: Latanoprost 0.005% 1 Bottle 1 DRP EACH EYE (21:33)
[2023-08-15] MEDS: Mirtazapine 30 MG Tablet PO (21:33)
[2023-08-15 21:44] VITALS: BMI 31.1
[2023-08-16] MEDS: Alendronate Sodium 70 MG Tablet PO (05:01)
[2023-08-16 08:30] VITALS: BMI 31.4
[2023-08-16 08:40] VITALS: BP 123/65; PULSE 71; RESP 17; TEMP 37; O2SAT 94
[2023-08-16] MEDS: Aspirin E.C. 81 MG Tablet PO (08:41)
[2023-08-16] MEDS: Carvedilol 12.5 MG Tablet PO ×2 (08:41→16:57)
[2023-08-16] MEDS: Senna/Docusate Sodium 1 Tablet 2 TABLET PO ×2 (09:07→21:36)
[2023-08-16] MEDS: Losartan Potassium 50 MG Tablet PO ×2 (09:07→21:36)
[2023-08-16] MEDS: Magnesium Chloride 64 MG Delay Rel.Tablet 128 MG PO (09:07)
[2023-08-16] MEDS: Polyethylene Glycol 3350 17 GM PACKET PO (09:07)
[2023-08-16] MEDS: NIFEdipine 30 MG Tablet PO (09:08)
[2023-08-16] MEDS: Enoxaparin 40 MG/0.4 ML Syringe SC (09:08)
[2023-08-16] MEDS: Pantoprazole Sodium 20 MG Tablet PO (09:08)
[2023-08-16] MEDS: Arthritis Pain Compound 60 CLICK TUBE TOPICAL ×2 (09:10→21:35)
[2023-08-16] MEDS: Petrolatum 33% Tube 1 APPLIC TOPICAL ×2 (09:13→21:39)
[2023-08-16 09:16] VITALS: BMI 31.4
[2023-08-16 20:20] VITALS: BMI 31.4
[2023-08-16 20:21] VITALS: BP 129/62; PULSE 74; RESP 16; TEMP 37.1; O2SAT 98
[2023-08-16] MEDS: Atorvastatin Calcium 40 MG Tablet PO (21:36)
[2023-08-16] MEDS: MELATONIN 3 MG TABLET PO (21:36)
[2023-08-16] MEDS: Mirtazapine 30 MG Tablet PO (21:37)
[2023-08-16] MEDS: Latanoprost 0.005% 1 Bottle 1 DRP EACH EYE (21:37)
[2023-08-16 22:00] VITALS: PULSE 74; RESP 16; O2SAT 98
[2023-08-16] MEDS: Acetaminophen 325 MG Tablet 650 MG PO (23:15)
[2023-08-17] MEDS: 0.9% Saline Lock 10 ML Syringe IV ×2 (01:42→20:37)
[2023-08-17 06:00] VITALS: BMI 31.6
[2023-08-17 07:31] VITALS: BP 142/53; PULSE 75; RESP 16; TEMP 36.9; O2SAT 97
[2023-08-17] MEDS: Pantoprazole Sodium 20 MG Tablet PO (07:55)
[2023-08-17] MEDS: Enoxaparin 40 MG/0.4 ML Syringe SC (07:55)
[2023-08-17] MEDS: NIFEdipine 30 MG Tablet PO (07:55)
[2023-08-17] MEDS: Senna/Docusate Sodium 1 Tablet 2 TABLET PO ×2 (07:55→20:35)
[2023-08-17] MEDS: Aspirin E.C. 81 MG Tablet PO (07:55)
[2023-08-17] MEDS: Losartan Potassium 50 MG Tablet PO ×2 (07:56→20:30)
[2023-08-17] MEDS: Polyethylene Glycol 3350 17 GM PACKET PO (07:56)
[2023-08-17] MEDS: Magnesium Chloride 64 MG Delay Rel.Tablet 128 MG PO (07:56)
[2023-08-17] MEDS: Arthritis Pain Compound 60 CLICK TUBE TOPICAL (07:56)
[2023-08-17] MEDS: Carvedilol 12.5 MG Tablet PO (07:56)
[2023-08-17] MEDS: Petrolatum 33% Tube 1 APPLIC TOPICAL ×2 (08:02→20:32)
--- NOTE | 2023-08-17 12:01 | PN_ITS ---
Subjective Subjective Afebrile VSS-systolics remain mildly elevated, up to 146, at times but the diastolics are always within normal limits. Maintaining appropriate oxygen saturation on RA Oral intake - FOOD good, improved FLUIDS getting better. For the last 2 days she took approximately 1-1/2 L of fluid. Weight is stabilizing. Discussed with nursing - Night nursing reports that she was restless last night and trying not to be Kaelyn downer . Medication list reviewed. Sherri denies lightheadedness, cephalgia, chest pain, cough, shortness of breath, palpitations, nausea/vomiting, dysuria and calf pain. Her appetite is impro ving. Her only real complaint today is that she gets pain in her feet Objective Data Objective Data Vital Signs: Vital Signs Temp Pulse Resp BP Pulse Ox O2 Del Method O2 Flow Rate 98.4 F 75 16 142/53 H 97 Room Air 2 08/17/23 07:31 08/17/23 07:31 08/17/23 07:31 08/17/23 07:31 08/17/23 07:31 08/17/23 07:31 08/07/23 08:27 Oxygen Flow Rate (L/min) 2 Oxygen Delivery Method Room Air Weight: 184 lb 15.485 oz Body Mass Index (BMI) 31.6 Intake & Output: Intake and Output for Last 24 Hours 08/15/23 08/16/23 08/17/23 22:59 23:59 23:59 Intake Total 340 / 340 Output Total 250 / 250 Balance 90 / 90 Lab / Micro Data 08/18/23 05:57 08/18/23 05:57 Micro: Microbiology 08/06/23 13:00 Urine Catheter - Donato Urine Culture - Final Culture exhibits no growth. 08/03/23 19:40 Stool Stool Occult Blood (BHARAT) - Final Assessment & Plan Assessment/Plan (1) Debility: (2) Ischemic cerebrovascular accident (CVA): (3) Uncontrolled hypertension: (4) Closed TBI (traumatic brain injury): QUALIFIERS: Encounter type: subsequent encounter Loss of consciousness presence/duration: unknown LOC status Qualified Code(s): S06.9XAD - Unspecified intracranial injury with loss of consciousness status unknown, subsequent encounter (5) Depression: PLAN: Plan 1. Continue therapy 2. Increase Remeron to 37.5 mg p.o. nightly 3. Discontinue Procardia due to the potential drug interaction between Procardia and beta-blockers in patients with cardiomyopathies. 4. Start Norvasc 5 mg p.o. daily 5. Increase the Coreg to 18.75 mg twice daily 6. CBC, BMP and phosphorus in the AM. 7. Add gabapentin 100 mg p.o. at 9 PM nightly for suspected radicular pain in her feet. Charges/Coding Visit Charges Inpatient E&M: 48127 Subs Hosp L2
--- NOTE | 2023-08-17 12:52 | CASEMGMT ---
Social Work IDT met with patient and then dtr via conference call for Team meeting. Discussed patient's progress in PT/OT/ST/SN. Educated all to insurance denying SNF stay at [facility]. denied completing P2P. Insurance MD explained the pt can continue with therapy needs at and will set DC date or IDT can set DC date. Insurance provided NRD 08/20 on . SW explained the pt will still need a SNF prior to home and pt would need to pay privately at the SNF or this worker can review Medicaid eligibility. Answered questions. Family in agreement to plan and can pay OOP. KAROLINE updated [facility]. Will ReTeam next week. KAROLINE will continue to follow for DC planning. Frances Huff [employer]
[2023-08-17 14:11] VITALS: BMI 31.6
[2023-08-17] MEDS: Carvedilol 12.5 MG Tablet 18.75 MG PO (16:35)
[2023-08-17 20:30] VITALS: BP 134/61; PULSE 75; RESP 15; TEMP 36.9; O2SAT 95
[2023-08-17] MEDS: MELATONIN 3 MG TABLET PO (20:30)
[2023-08-17] MEDS: Atorvastatin Calcium 40 MG Tablet PO (20:30)
[2023-08-17] MEDS: Mirtazapine 15 MG Tablet 37.5 MG PO (20:31)
[2023-08-17] MEDS: Latanoprost 0.005% 1 Bottle 1 DRP EACH EYE (20:35)
[2023-08-18 00:21] VITALS: BMI 31.6
[2023-08-18 06:00] VITALS: BMI 31.6
[2023-08-18 06:03] LABS: Hematocrit 37.1 % (37-47); Hemoglobin 11.8 g/dL (12.0-15.0); Mean Corp Hgb Conc 31.8 g/dL (32-36); Mean Corpuscular Hgb 30.6 pg (27.0-32.0); Mean Corpuscular Volume 96.1 fL (81-99); Platelet Count 365 K/mm3 (150-450); RBC Distribution Width CV 13.3 % (11.6-14.6); RBC Distribution Width SD 47.8 fl (35.1-43.9); Red Blood Count 3.86 M/mm3 (4.2-5.4); White Blood Count 9.2 K/mm3 (4.4-11.0)
[2023-08-18 06:35] LABS: Anion Gap 4 (5-15); BUN 12 mg/dL (7-18); Calcium,Total 9.7 mg/dL (8.5-10.1); Chloride 114 mmol/L (98-107); Creatinine, Serum 0.67 mg/dL (0.55-1.02); EST Glomerular Filtration Rate 92 mL/min (>60); Est Glom Filt Rate - Afr Amer 111 mL/min (>60); Estimated Creatinine Clearance 64.69 ml/min; Glucose 96 mg/dL (74-106); Potassium 4.4 mmol/L (3.5-5.1); Sodium Level 142 mmol/L (136-145)
[2023-08-18 07:19] VITALS: BP 121/55; PULSE 69; RESP 17; TEMP 36.7; O2SAT 98
[2023-08-18] MEDS: Arthritis Pain Compound 60 CLICK TUBE TOPICAL (07:51)
[2023-08-18] MEDS: amLODIPine 5 MG Tablet PO (07:51)
[2023-08-18] MEDS: Polyethylene Glycol 3350 17 GM PACKET PO (07:51)
[2023-08-18] MEDS: Aspirin E.C. 81 MG Tablet PO (07:51)
[2023-08-18] MEDS: Pantoprazole Sodium 20 MG Tablet PO (07:51)
[2023-08-18] MEDS: Magnesium Chloride 64 MG Delay Rel.Tablet 128 MG PO (07:51)
[2023-08-18] MEDS: Senna/Docusate Sodium 1 Tablet 2 TABLET PO ×2 (07:52→20:22)
[2023-08-18] MEDS: Losartan Potassium 50 MG Tablet PO ×2 (07:52→20:22)
[2023-08-18] MEDS: Carvedilol 12.5 MG Tablet 18.75 MG PO ×2 (07:52→16:43)
[2023-08-18] MEDS: Petrolatum 33% Tube 1 APPLIC TOPICAL ×2 (07:58→20:24)
[2023-08-18 15:51] VITALS: BMI 31.6
[2023-08-18 20:00] VITALS: BP 111/63; PULSE 76; RESP 15; TEMP 36.9; O2SAT 95
[2023-08-18] MEDS: Atorvastatin Calcium 40 MG Tablet PO (20:22)
[2023-08-18] MEDS: Mirtazapine 15 MG Tablet 37.5 MG PO (20:23)
[2023-08-18] MEDS: MELATONIN 3 MG TABLET PO (20:23)
[2023-08-18] MEDS: Latanoprost 0.005% 1 Bottle 1 DRP EACH EYE (20:24)
[2023-08-19 01:35] VITALS: BMI 31.6
[2023-08-19] MEDS: Acetaminophen 325 MG Tablet 650 MG PO (01:40)
[2023-08-19 06:00] VITALS: BMI 31.4
[2023-08-19] MEDS: Senna/Docusate Sodium 1 Tablet 2 TABLET PO ×2 (08:26→21:16)
[2023-08-19] MEDS: Carvedilol 12.5 MG Tablet 18.75 MG PO ×2 (08:26→16:58)
[2023-08-19] MEDS: Pantoprazole Sodium 20 MG Tablet PO (08:26)
[2023-08-19] MEDS: Polyethylene Glycol 3350 17 GM PACKET PO (08:26)
[2023-08-19] MEDS: Losartan Potassium 50 MG Tablet PO ×2 (08:27→21:11)
[2023-08-19] MEDS: amLODIPine 5 MG Tablet PO (08:27)
[2023-08-19] MEDS: Magnesium Chloride 64 MG Delay Rel.Tablet 128 MG PO (08:27)
[2023-08-19] MEDS: Aspirin E.C. 81 MG Tablet PO (08:27)
[2023-08-19] MEDS: Arthritis Pain Compound 60 CLICK TUBE TOPICAL ×2 (08:34→21:10)
[2023-08-19 08:48] VITALS: BP 125/50; PULSE 71; RESP 16; TEMP 36.6; O2SAT 96
[2023-08-19] MEDS: Petrolatum 33% Tube 1 APPLIC TOPICAL ×2 (09:54→21:17)
[2023-08-19 11:46] VITALS: BMI 31.4
--- NOTE | 2023-08-19 14:52 | PCM.PROGNOTE ---
Subjective Subjective Afebrile VSS-blood pressure is well-controlled. Heart rate is within normal limits. Maintaining appropriate oxygen saturation on RA Oral intake - FOOD nutritional intake is somewhat variable however she is eating food from outside the hospital and is a big fan of sweets. FLUIDS fair Discussed with nursing - no problems that need addressed. She is voiding and is not having urinary incontinence. She is having regular bowel movements. She is sleeping well at night. Reviewed the THERAPY notes Medication list reviewed. Continues to c/o pain in her feet, jonas at night. It is both feet. she has also c/o pain in the anterior shins. I am suspicious this is neuropathic. She has good pedal pulses in both feet. She has good capillary refill. I meant to order Gabapentin 100 mg at night yesterday but, I forgot. Will start tonight. Sherri denies lightheadedness, cephalgia, chest pain, shortness of breath with exertion, palpitations, orthopnea, nausea/vomiting/abdominal pain/heartburn, gastrocnemius pain and dysuria. tolerating the increase in the Remeron with no adverse effects. Objective Data Objective Data Vital Signs: Vital Signs Temp Pulse Resp BP Pulse Ox O2 Del Method O2 Flow Rate 97.8 F 71 16 125/50 H 96 Room Air 2 08/19/23 08:48 08/19/23 08:48 08/19/23 08:48 08/19/23 08:48 08/19/23 08:48 08/19/23 08:48 08/07/23 08:27 Oxygen Flow Rate (L/min) 2 Oxygen Delivery Method Room Air Weight: 183 lb 3.2 oz Body Mass Index (BMI) 31.4 Intake & Output: Intake and Output for Last 24 Hours 08/17/23 08/18/23 08/19/23 23:59 23:59 23:59 Intake Total 1002 / 1002 880 / 1080 200 / 200 Output Total 900 / 900 800 / 1100 600 / 600 Balance 102 / 102 80 / -20 -400 / -400 Lab / Micro Data 08/18/23 05:57 08/18/23 05:57 Micro: Microbiology 08/06/23 13:00 Urine Catheter - Donato Urine Culture - Final Culture exhibits no growth. 08/03/23 19:40 Stool Stool Occult Blood (BHARAT) - Final Physical Exam Const alert, oriented x3 and no apparent distress General Appearance: cooperative Orientation / Consciousness: Negative for confused Resp clear to auscultation bilaterally Resp Narrative: No conversational dyspnea Effort and Inspection: Negative for tachypneic Cardio regular rate, regular rhythm and no gallops GI normal to inspection, nondistended, normoactive bowel sounds, soft to palpation and non-tender GI Narrative: No guarding with palpation Extremity no calf tenderness General Extremity: Negative for edema Skin Rashes: no rashes Psych Psych Narrative: Not tearful and no longer ruminating on . She is looking forward and is very motivated to do therapy and get better. Appearance: appropriate Attitude: No agitated Activity / Motor Behavior: Negative for restless Assessment & Plan Assessment/Plan (1) Debility: (2) Ischemic cerebrovascular accident (CVA): (3) Closed TBI (traumatic brain injury): QUALIFIERS: Encounter type: subsequent encounter Loss of consciousness presence/duration: unknown LOC status Qualified Code(s): S06.9XAD - Unspecified intracranial injury with loss of consciousness status unknown, subsequent encounter (4) Depression: (5) Leg pain, bilateral: PLAN: Suspect neuropathic it involves both legs and the shins and feet and is worse at night. PLAN: Plan 1. Continue therapy-she is making much better progress this week. We have had so many complications with Sherri during her admission on rehab that she has had some setbacks. Last week was the first week that she has really been alert and oriented, cooperative and not agitated or delirious. She has made great progress with speech therapy and is making progress with PT and OT as well. She was able to ambulate 6 feet today and prior to this has either been in a wheelchair or only standing at the wall rail. I think she has excellent potential for recovery but due to the setbacks from delirium, MS and Takotsubo's cardiomyopathy recovery is delayed. 2. Gabapentin 100 mg was added to her drug regiment and it is to be given at 9 PM nightly. 3. Blood pressure is controlled and there will be no adjustments to the antihypertensive regimen today. Charges/Coding Visit Charges Inpatient E&M: 65817 Subs Hosp L1
[2023-08-19] MEDS: 0.9% Saline Lock 10 ML Syringe IV ×2 (16:32→21:19)
[2023-08-19 19:25] VITALS: BP 115/54; PULSE 74; RESP 18; TEMP 36.5; O2SAT 94
[2023-08-19 21:00] VITALS: PULSE 74; RESP 17; O2SAT 94
[2023-08-19] MEDS: Gabapentin 100 MG Capsule PO (21:10)
[2023-08-19] MEDS: MELATONIN 3 MG TABLET PO (21:11)
[2023-08-19] MEDS: Atorvastatin Calcium 40 MG Tablet PO (21:11)
[2023-08-19] MEDS: Mirtazapine 15 MG Tablet 37.5 MG PO (21:11)
[2023-08-19] MEDS: Latanoprost 0.005% 1 Bottle 1 DRP EACH EYE (21:14)
[2023-08-19 21:30] VITALS: BMI 31.4
[2023-08-20 06:00] VITALS: BMI 31.6
[2023-08-20 08:34] VITALS: BP 112/52; PULSE 64; RESP 15; TEMP 36.7; O2SAT 93
[2023-08-20] MEDS: Carvedilol 12.5 MG Tablet 18.75 MG PO ×2 (09:23→16:46)
[2023-08-20] MEDS: Arthritis Pain Compound 60 CLICK TUBE TOPICAL ×2 (09:24→21:08)
[2023-08-20] MEDS: Aspirin E.C. 81 MG Tablet PO (09:24)
[2023-08-20] MEDS: Losartan Potassium 50 MG Tablet PO ×2 (09:26→21:16)
[2023-08-20] MEDS: Magnesium Chloride 64 MG Delay Rel.Tablet 128 MG PO (09:26)
[2023-08-20] MEDS: Senna/Docusate Sodium 1 Tablet 2 TABLET PO ×2 (09:27→21:17)
[2023-08-20] MEDS: amLODIPine 5 MG Tablet PO (09:27)
[2023-08-20] MEDS: Pantoprazole Sodium 20 MG Tablet PO (09:27)
[2023-08-20] MEDS: Petrolatum 33% Tube 1 APPLIC TOPICAL ×2 (09:31→21:10)
[2023-08-20 09:43] VITALS: BMI 31.6
--- NOTE | 2023-08-20 14:38 | CASEMGMT ---
Social Work SW received [facility] message from [facility] inquiring about DC date and requesting updated notes to start precert for pt admission in the case insurance does not approve continued stay on 08/20. KAROLINE sent updates. [facility] started precert. Will continue to follow. Frances Huff, JUAN WOLFFW
[2023-08-20 19:44] VITALS: BP 132/63; PULSE 73; RESP 18; TEMP 36.6; O2SAT 94
[2023-08-20] MEDS: Atorvastatin Calcium 40 MG Tablet PO (21:16)
[2023-08-20] MEDS: MELATONIN 3 MG TABLET PO (21:16)
[2023-08-20] MEDS: Gabapentin 100 MG Capsule PO (21:16)
[2023-08-20] MEDS: Mirtazapine 15 MG Tablet 37.5 MG PO (21:16)
[2023-08-20] MEDS: Latanoprost 0.005% 1 Bottle 1 DRP EACH EYE (21:17)
[2023-08-20 21:32] VITALS: BMI 31.6
[2023-08-20] MEDS: 0.9% Saline Lock 10 ML Syringe IV (21:35)
[2023-08-20 22:00] VITALS: RESP 16; O2SAT 96
[2023-08-21 06:00] VITALS: BMI 31.5
[2023-08-21] MEDS: Carvedilol 12.5 MG Tablet 18.75 MG PO ×2 (08:02→18:43)
[2023-08-21] MEDS: Polyethylene Glycol 3350 17 GM PACKET PO (08:02)
[2023-08-21] MEDS: Pantoprazole Sodium 20 MG Tablet PO (08:03)
[2023-08-21] MEDS: Senna/Docusate Sodium 1 Tablet 2 TABLET PO (08:03)
[2023-08-21] MEDS: amLODIPine 5 MG Tablet PO (08:03)
[2023-08-21] MEDS: Aspirin E.C. 81 MG Tablet PO (08:03)
[2023-08-21] MEDS: Losartan Potassium 50 MG Tablet PO ×2 (08:03→20:43)
[2023-08-21] MEDS: Magnesium Chloride 64 MG Delay Rel.Tablet 128 MG PO (08:03)
[2023-08-21] MEDS: Petrolatum 33% Tube 1 APPLIC TOPICAL ×2 (08:04→20:47)
[2023-08-21 08:34] VITALS: BP 110/53; PULSE 68; RESP 15; TEMP 36.4; O2SAT 95
[2023-08-21 12:24] VITALS: BMI 31.5
--- NOTE | 2023-08-21 13:03 | PCM.PROGNOTE ---
Subjective Subjective Afebrile VSS-blood pressure is well-controlled and the heart rate is within normal limits. Maintaining appropriate oxygen saturation on RA Oral intake - FOOD good FLUIDS fair, better than at admission Weight is stable Discussed with nursing - no problems that need addressed. Sleeping well at night and she is much more alert during the day. Reviewed the THERAPY notes Medication list reviewed. Sherri denies lightheadedness, vertigo, CP, SOB at rest, SOB with exertion, cough, nausea, vomiting, abd pain, diarrhea, constipation, dysuria, calf pain and ankle swelling. Objective Data Objective Data Vital Signs: Vital Signs Temp Pulse Resp BP Pulse Ox O2 Del Method O2 Flow Rate 97.6 F L 68 15 110/53 L 95 Room Air 2 08/21/23 08:34 08/21/23 08:34 08/21/23 08:34 08/21/23 08:34 08/21/23 08:34 08/21/23 08:34 08/07/23 08:27 Oxygen Flow Rate (L/min) 2 Oxygen Delivery Method Room Air Weight: 183 lb 13.848 oz Body Mass Index (BMI) 31.5 Intake & Output: Intake and Output for Last 24 Hours 08/19/23 08/20/23 08/21/23 23:59 23:59 23:59 Intake Total 1050 / 1050 560 / 760 680 / 680 Output Total 1150 / 1150 1300 / 1500 500 / 500 Balance -100 / -100 -740 / -740 180 / 180 Lab / Micro Data 08/18/23 05:57 08/18/23 05:57 Micro: Microbiology 08/06/23 13:00 Urine Catheter - Donato Urine Culture - Final Culture exhibits no growth. 08/03/23 19:40 Stool Stool Occult Blood (BHARAT) - Final Physical Exam Const alert, oriented x3 and no apparent distress Constitutional Narrative: Calm and making good eye contact. She is appropriate and not restless. General Appearance: cooperative, comfortable and well kempt; Negative for anxious HEENT head/scalp atraumatic HEENT Narrative: MM are a little dry. PERRLA. EOM intact. No nystagmus. No scleral icterus, conjunctiva is normal, no discharge from the eyes and no mattering of the eyelashes. No facial asymmetry. Neck supple, no JVD and no carotid bruits Chest Chest Narrative: Has had a mastectomy on the right. Chest: symmetrical chest wall rise Resp normal respiratory effort, normal air movement and clear to auscultation bilaterally Resp Narrative: No conversational dyspnea. No tachypnea. Cardio regular rate, regular rhythm, S1 normal heart sound, S2 normal heart sound, no murmurs, no rub and no gallops GI normal to inspection, nondistended, normoactive bowel sounds, soft to palpation and non-tender GI Narrative: Having regular bowel movements. No guarding with palpation. Extremity no calf tenderness and no pedal edema Extremity Narrative: Bony enlargement of the left knee. No joint erythema. Peripheral Pulses: Yes pulses 2+ throughout Skin General Skin Exam: no breakdown Rashes: no rashes Neuro CN's II-XII intact bilaterally, moves all extremities and no sensory deficits noted Neuro Narrative: Still with ataxia of the left upper extremity. Hemianopia has resolved. No visual field cuts at the time of discharge. When she uses her line to read she was able to read all the sentences on the NIHSS testing with no mistakes. She was also able to read all the words when using her line. Meningeal Signs: no meningeal signs and nuccal rigidity Psych cooperative, affect normal, speech normal, denies hallucinations, denies homicidal ideation and denies suicidal ideation Psych Narrative: Rare tearful episodes now. She was a little tearful to be leaving rehab. Appearance: grossly normal, appropriate and well kempt Attitude: calm Activity / Motor Behavior: appropriate eye contact Assessment & Plan Assessment/Plan (1) Debility: (2) Ischemic cerebrovascular accident (CVA): (3) Cerebrovascular disease: (4) Closed TBI (traumatic brain injury): QUALIFIERS: Encounter type: subsequent encounter Loss of consciousness presence/duration: unknown LOC status Qualified Code(s): S06.9XAD - Unspecified intracranial injury with loss of consciousness status unknown, subsequent encounter (5) Left hemiparesis: (6) Alien hand syndrome: (7) STEMI (ST elevation myocardial infarction): QUALIFIERS: Involved coronary artery: unspecified coronary artery Qualified Code(s): I21.3 - ST elevation (STEMI) myocardial infarction of unspecified site (8) Takotsubo cardiomyopathy: PLAN: Left ventricular ejection fraction was estimated at 45% on the transthoracic echocardiogram but on the cardiac catheterization the left ventricular ejection fraction was 20 to 25%. (9) Depression: PLAN: Resistant to treatment with antidepressants. Has never had any psychotherapy but, she is now agreeable to follow up with psychiatry. She has chosen a psychiatrist. We tried to schedule and appt for her but, the office was closed on Thursday when we found out Sherri was being discharged on 08/22/23. [facility] [phone] [place] [address] Dr. Tracey Sinclair charge nurse will call the office on Thursday and try and get an appt for SHERRI. (10) Leg pain, bilateral: PLAN: Much improved with gabapentin 100 mg at at bedtime. She tells me she has not had any pain in her feet for the past couple days. PLAN: Plan 1. Continue therapy 2. Will need additional PT/OT/ST prior to going home and will go to [facility] when she is cut by her insurance 3. No changes to the drug regimen today Charges/Coding Visit Charges Inpatient E&M: 67404 [facility] Hosp L1
--- NOTE | 2023-08-21 13:21 | CASEMGMT ---
Addendum entered by Frances Huff 08/21/23 20:47: late entry [id number]: presented to this worker's office and SW updated on precert approval and transfer to [facility], skilled, via cot transport at 1100. agreeable and appreciative. Addendum entered by Frances Huff 08/21/23 13:54: Precert approved for [facility]. Pt will transfer skilled. Original Note: Social Work Insurance issued LCD 08/20, DC 08/21. SW notified [facility] and they can accept, without precert outcome, if a check is provided. [facility] stated they will hold the check until precert outcome is received, and provided total for this worker to relay to family. SW updated IDT and left VM with . Scheduled cot transport through [facility] for 1100. Plan: DC 08/[address] [facility], pending precert to determine skilled vs intermediate private pay JUAN Kam
--- NOTE | 2023-08-21 15:24 | EX.DISCHREH ---
Providers Date of Admission: 07/29/23 Date of Discharge: 08/22/23 Primary Care Physician: Dr. Bo Nicholas MD Reason For Visit: STROKE Diagnosis Discharge Diagnosis (1) Debility: Status: Acute Code(s): R53.81 - Other malaise Plan: Due to ischemic CVA, SAH due to trauma/TNK and closed TBI with LOC due to fall at admission to rehab and then she had a STEMI and developed Takotsubo's cardiomyopathy later in the admission. (2) Ischemic cerebrovascular accident (CVA): Status: Acute Code(s): I63.9 - Cerebral infarction, unspecified Plan: Ischemic in the R MCA distribution. (3) Cerebrovascular disease: Status: Inactive Code(s): I67.9 - Cerebrovascular disease, unspecified Plan: CTA of the head and neck on 06/23/2023 showed severe stenosis at the origin of the right internal carotid artery with occlusion/thrombosis in the M2 segment of the right middle cerebral artery. (4) Closed TBI (traumatic brain injury): Status: Acute Code(s): S06.9XAA - Unspecified intracranial injury with loss of consciousness status unknown, initial encounter Qualifiers: Encounter type: subsequent encounter Loss of consciousness presence/duration: unknown LOC status Qualified Code(s): S06.9XAD - Unspecified intracranial injury with loss of consciousness status unknown, subsequent encounter Plan: Due to a fall from ground level with LOC at the time of the stroke. (5) Left hemiparesis: Status: Acute Code(s): G81.94 - Hemiplegia, unspecified affecting left nondominant side (6) Alien hand syndrome: Status: Acute Code(s): R41.4 - Neurologic neglect syndrome Plan: Left hand due to stroke. (7) Uncontrolled hypertension: Status: Resolved Code(s): I10 - Essential (primary) hypertension (8) Cognitive dysfunction: Status: Acute Code(s): F09 - Unspecified mental disorder due to known physiological condition (9) Coronary artery disease: Status: Acute Code(s): I25.10 - Atherosclerotic heart disease of [place] coronary artery without angina pectoris Qualifiers: Associated angina: without angina Coronary Disease-Associated Artery/Lesion type: [place] artery [place] vs. transplanted heart: [place] heart Qualified Code(s): I25.10 - Atherosclerotic heart disease of [place] coronary artery without angina pectoris (10) STEMI (ST elevation myocardial infarction): Status: Chronic Code(s): I21.3 - ST elevation (STEMI) myocardial infarction of unspecified site Qualifiers: Involved coronary artery: unspecified coronary artery Qualified Code(s): I21.3 - ST elevation (STEMI) myocardial infarction of unspecified site Plan: 07/25/2023. Will need follow-up with [facility] following discharge from acute rehab within the next 2 to 4 weeks. (11) Takotsubo cardiomyopathy: Status: Acute Code(s): I51.81 - Takotsubo syndrome Plan: Left ventricular ejection fraction was estimated at 45% on the transthoracic echocardiogram but on the cardiac catheterization the left ventricular ejection fraction was 20 to 25%. (12) Delirium: Status: Resolved Code(s): R41.0 - Disorientation, unspecified (13) Depression: Status: Chronic Code(s): F32.A - Depression, unspecified Plan: Resistant to treatment with antidepressants. Has never had any psychotherapy but, she is now agreeable to follow up with psychiatry. She has chosen a psychiatrist. We tried to schedule and appt for her but, the office was closed on Thursday when we found out Sherri was being discharged on 08/22/23. [facility] therapy [phone] [place] [address] Dr. Tracey Sinclair charge nurse will call the office on Thursday and try and get an appt for SHERRI. (14) Leg pain, bilateral: Status: Acute Code(s): M79.604 - Pain in right leg; M79.605 - Pain in left leg Plan: Neuropathic - it involves both legs and the shins and feet and is worse at night. Improving with Gabapentin at bedtime. (15) Osteoporosis: Status: Acute Code(s): M81.0 - Age-related osteoporosis without current pathological fracture (16) Hyperlipidemia: Status: Acute Code(s): E78.5 - Hyperlipidemia, unspecified Qualifiers: Hyperlipidemia type: mixed hyperlipidemia Qualified Code(s): E78.2 - Mixed hyperlipidemia (17) Glaucoma: Status: Acute Code(s): H40.9 - Unspecified glaucoma (18) GERD (gastroesophageal reflux disease): Status: Acute Code(s): K21.9 - Gastro-esophageal reflux disease without esophagitis (19) HTN (hypertension): Status: Chronic Code(s): I10 - Essential (primary) hypertension Qualifiers: Hypertension type: primary hypertension Qualified Code(s): I10 - Essential (primary) hypertension (20) History of breast cancer: Status: Chronic Code(s): Z85.3 - Personal history of malignant neoplasm of breast Plan 1. Discharge to [facility] on 08/22/2023 2. Will need follow-up with neurology, cardiology, psychiatry and PCP 3. Needs ongoing PT/OT/ST Medications at Discharge Home Medications latanoprost 0.005 % eye drops 1 drp EACH EYE QHS Eye drops 08/10/14 letrozole 2.5 mg tablet 2.5 mg PO DAILY Breast cancer 08/29/20 omeprazole 20 mg capsule,delayed release 20 mg PO DAILY GERD 08/30/20 alendronate 70 mg tablet 70 mg PO Q7D Bone health 07/06/23 polyethylene glycol 3350 17 gram/dose oral powder (Miralax) 17 g PO DAILY constipation 07/26/23 aspirin 81 mg tablet,delayed release 81 mg PO BREAKFAST heart health #0 tabs 07/29/23 atorvastatin 40 mg tablet 40 mg PO QHS cholesterol #0 tabs 07/29/23 losartan 50 mg tablet 50 mg PO BID blood pressure #0 tabs 07/29/23 nitroglycerin 0.4 mg sublingual tablet 0.4 mg sublingual Q5M PRN Cardiac/Chest Pain #0 tabs 07/29/23 Petrolatum 33% [Eucerin Eqivalent] 1 applic topical QHS #1 applic 08/21/23 acetaminophen 325 mg tablet 650 mg (2 x 325 mg) PO Q4H PRN PRN Pain 1-10 Or Fever #1 TAB 08/21/23 amlodipine 5 mg tablet 5 mg PO DAILY #1 TAB 08/21/23 bisacodyl 10 mg rectal suppository 10 mg MO X1 PRN Constipation #1 ea 08/21/23 calcium carbonate 600 mg-vitamin D3 20 mcg (800 unit) tablet 1 tablet PO DAILY@0800 supplement #1 TAB 08/21/23 carvedilol 12.5 mg tablet 18.75 mg (1.5 x 12.5 mg) PO BIDCM #1 TAB 08/21/23 diclofenac sodium 1 % topical gel (Voltaren Arthritis Pain) 2 g topical BID #100 grams 08/21/23 gabapentin 100 mg capsule 100 mg PO 2100 #1 cap 08/21/23 magnesium chloride 64 mg (magnesium chloride) tablet,delayed release (Mag 64) 128 mg (2 x 64 mg) PO DAILY #1 TAB 08/21/23 magnesium hydroxide 400 mg/5 mL oral suspension 30 ml PO X1 PRN Constipation #30 mL 08/21/23 melatonin 3 mg tablet 3 mg PO QHS #1 TAB 08/21/23 mirtazapine 15 mg tablet 37.5 mg (2.5 x 15 mg) PO QHS #2 tabs 08/21/23 sennosides 8.6 mg-docusate sodium 50 mg tablet (Stool Softener-Stimulant Laxative) 2 tab PO BID #1 TAB 08/21/23 Hospital Course Operations None Procedures Cardiac catheterization (Mild to moderate diffuse coronary artery disease. Left ventricular ejection fraction 20 to 25% with wall motion abnormalities suggesting Takotsubo's cardiomyopathy. Mild mitral regurgitation and no significant aortic stenosis.) Summary of Care Provided Minutes Spent on Discharge: 60 Hospital Course: GILBERTO CAMPBELL, is a 72-year-old F with a past medical history of breast cancer (initially diagnosed 1990 with recurrence in 2014), hypertension, hyperlipidemia, long standing depression (at least 50 years), glaucoma, GERD and obesity who presented to the emergency department at [facility] on 06/23/2023 as a stroke alert. She had acute onset of a right-sided headache and weakness and fell to the ground in the bathroom, hitting her head. Upon arrival to the emergency department she had left-sided weakness and visual loss (left side hemianopia). NIHSS was 8. Stat noncontrast CT brain showed moderate patchy periventricular and subcortical white matter ischemic changes but no acute findings. CTA of the head and neck showed severe stenosis at the origin of the right internal carotid artery in the neck and occlusion/thrombosis in the M2 segment of the right MCA. Teleneurology was consulted and recommended TNK be given followed by transfer to [facility] for potential mechanical thrombectomy. TNK was given and she was transported to [facility] where a CT head demonstrated acute subarachnoid hemorrhage along the sylvian fissure and left parietal sulci. CT perfusion showed a mismatch volume of 8 cc with mismatch ratio of 1.2. She was deemed not to be a candidate for thrombectomy. [address] brain showed a stable subarachnoid hemorrhage. NIHSS at presentation to [facility] was 6. On 06/28/2023 the NIHSS was 11. MRI of the brain showed a large recent infarct in the territory of the right MCA inferior division with mild local mass effect. There was focal blooming artifact in the right sylvian fissure likely representing intravascular thrombus in the right M2 segment. There was minimal petechial hemorrhage along the periphery of the infarcted territory. She was admitted to the neurointensive care with diagnoses of right MCA stroke, right M2 occlusion, acute subarachnoid hemorrhage, TBI secondary to a fall and moderate right carotid stenosis. While at [facility] she was seen by PT/OT/ST and acute inpt rehab was recommended at [place]. Sherri was transferred to the acute inpt rehab unit at [facility] on 07/06/23 for 3 hours of therapy daily to restore function/independence as close as possible to her level prior to the stroke. Sherri was severely depressed at admission to rehab. She was not sleeping and she had very poor appetite and intake. She was tearful much of the time and perseverating on the of her dtr and also the sudden passing of her son at 28 YOA of unknown causes. She has been on antidepressants for a long time with no significant improvement in chronic depression. She was taking both Remeron 30 mg nightly and Viibryd 40 mg daily and was anxious and having insomnia. I suspect she had serotonin S. These were abruptly stopped at [facility] and she went into withdrawal. They were both restarted at the same dose and she was taking both of these medications at presentation to rehab. She was agitated at night and not sleeping and she was started on Seroquel 25 mg and seemed to tolerate this well. She was sleeping better but remained very tearful with poor appetite and poor motivation. Viibryd was discontinued and she was continued on Remeron 30 mg at at bedtime. On 07/25/23 she c/o severe CP and EKG revealed AST elevation. Cardiology was consulted and she was taken for a cardiac cath that showed mild to moderate diffuse coronary artery disease with wall motion abnormalities and left ventricular ejection fraction of 20 to 25%. She was diagnosed with Takotsubo's cardiomyopathy. There was mild mitral regurgitation present and no significant aortic stenosis. She was seen by cardiology who recommended discontinuation of Procardia and changing metoprolol to Coreg. A 30-day event monitor was prescribed and placed on when she arrived back on rehab. Sherri was transferred back to inpatient rehab on 07/29/2023 to resume 3 hours of therapy daily to restore function/independence at or near her level prior to the ischemic stroke. She was even more depressed than she was after the stroke and was not sleeping or eating. She was started on Vraylar 1.5 mg daily. She became severely agitated and delirious after a few days. She was transitioned to Seroquel because she had tolerated Seroquel earlier in the admission. There was no improvement with transition to Seroquel. She was also still taking Keppra which can cause agitation. An EEG was done to rule out temporal lobe seizures and she had no epileptiform activity on the EEG. Antipsychotics and Keppra were both discontinued and within 24 to 48 hours she had significant improvement. She has had no seizure activity since Keppra was discontinued. She continued to have insomnia and melatonin 3 mg was added to her drug regimen. This was effective in helping her to sleep. Appetite gradually improved and prior to discharge she is eating very well. A recurrent complaint has been pain in her anterior shins bilaterally and also pain in both feet. These pains are worse at night. We had a suspicion that they were neuropathic in origin and she was started on gabapentin 100 mg at bedtime and the pain is better. She is tolerating the gabapentin and melatonin with no adverse side effects. Sherri has had other complications while on rehab and these include but, are not limited to UTI, cellulitis of the R foot and a rash on her back (she has been diagnosed with [place]'s disease in the past. The rash resolved with topical steroids. She has progressed with therapy but, due to the multiple complications and comorbidities progress has been slow. At the time of discharge from rehab she is supervision/set up for eating and grooming. She is standby assist for upper body dressing and max assist for lower body dressing. She requires minimal assistance with bathing. She is still requiring maximum assistance for toilet transfer, toileting and tub/shower transfer. Hemianopia she had at admission has resolved and she has much less neglect of the left side. She is min assist to moderate assist of 1 for transfers. She is using a WW to go from sit to stand and is min-mod assist. She is going 75' with the WC and doing better with motor control and pace. She has ambulated 6' at mod assist. Ambulation is limited by knee pain and buckling. We have been working on static balance. Sherri is requiring more assistance than her family can provide at this time and she is going to be discharged to [facility] on 08/22/23 for additional PT/OT/ST. Hopefully she will be able to return home when discharged from [place]. She has made a lot of progress with ST/cognition and she is able to maneuver the WC at a better pace and with better control. She has been progressing steadily over the past 10 days since the delirium has resolved and she is sleeping and eating better. She is now on 37.5 mg of Remeron and she is tolerating this without adverse SE's. BP is well controlled. She still has some alien hand features and her Left arm has a mind of it's own at times. there has been no seizure activity and she is able to lay the arm at her side when you tell her to. Physical Exam Const alert, oriented x3 and no apparent distress Constitutional Narrative: Calm and making good eye contact. She is appropriate and not restless. General Appearance: cooperative, comfortable and well kempt; Negative for anxious HEENT head/scalp atraumatic HEENT Narrative: MM are a little dry. PERRLA. EOM intact. No nystagmus. No scleral icterus, conjunctiva is normal, no discharge from the eyes and no mattering of the eyelashes. No facial asymmetry. Neck supple, no JVD and no carotid bruits Chest Chest Narrative: Has had a mastectomy on the right. Chest: symmetrical chest wall rise Resp normal respiratory effort, normal air movement and clear to auscultation bilaterally Resp Narrative: No conversational dyspnea. No tachypnea. Cardio regular rate, regular rhythm, S1 normal heart sound, S2 normal heart sound, no murmurs, no rub and no gallops GI normal to inspection, nondistended, normoactive bowel sounds, soft to palpation and non-tender GI Narrative: Having regular bowel movements. No guarding with palpation. Extremity no calf tenderness and no pedal edema Extremity Narrative: Bony enlargement of the left knee. No joint erythema. Peripheral Pulses: Yes pulses 2+ throughout Skin General Skin Exam: no breakdown Rashes: no rashes Neuro CN's II-XII intact bilaterally, moves all extremities and no sensory deficits noted Neuro Narrative: Still with ataxia of the left upper extremity. Hemianopia has resolved. No visual field cuts at the time of discharge. When she uses her line to read she was able to read all the sentences on the NIHSS testing with no mistakes. She was also able to read all the words when using her line. Meningeal Signs: no meningeal signs and nuccal rigidity Psych cooperative, affect normal, speech normal, denies hallucinations, denies homicidal ideation and denies suicidal ideation Psych Narrative: Rare tearful episodes now. She was a little tearful to be leaving rehab. Appearance: grossly normal, appropriate and well kempt Attitude: calm Activity / Motor Behavior: appropriate eye contact Weight / BMI Weight Weight: 183 lb 13.848 oz Body Mass Index (BMI) 31.5 ABG / Lab / Microbiology Data 08/18/23 05:57 08/18/23 05:57 Microbiology: Microbiology 08/06/23 13:00 Urine Catheter - Donato Urine Culture - Final Culture exhibits no growth. 08/03/23 19:40 Stool Stool Occult Blood (BHARAT) - Final Indicators for Scoring Admitted with or Primary Diagnosis of CVA/Stroke: Yes Hx of CVA/Stroke: Yes Modified Gladys Score MRS Score at time of Evaluation: 4-Moderate/severe disability NIHSS NIHSS 1a. Level of Consciousness: Alert; keenly responsive 1b. LOC Questions: Answers BOTH questions correctly. 1c. LOC Commands: Performs both tasks correctly. 2. Best Gaze: Normal 3. Visual: No visual loss 4. Facial Palsy: Normal symmetrical movements 5a. Left Arm: No drift; arm holds 90 (or 45) degrees for full 10 seconds (The left hand is still not always what she wants it to do. alien hand has improved since admission to rehab and she has better control. The L hand still is hyperextending the fingers and she is holding the Left arm up in the air at times for no particular reason. ) 5b. Right Arm: No drift; arm holds 90 (or 45) degrees for full 10 seconds 6a. Left Leg: No drift; leg holds 30-degree position for full 5 seconds 6b. Right Leg: No drift; leg holds 30-degree position for full 5 seconds 7. Limb Ataxia: Present in 1 limb (Left upper extremity) 8. Sensory: Normal; no sensory loss 9. Best Language: No aphasia; normal 10. Dysarthria: Normal 11. Extinction and Inattention: Visual, tactile, auditory, spatial, or personal inattention (Tactile extinction in the left upper extremity and left lower extremity) Total: 2 Stroke Questions Stroke Team Activated: No Meaningful Use Info Meaningful Use Diagnoses (Choose all that apply): Ischemic CVA CVA Therapy Assessed for PT,OT and/or ST?: Yes Ischemic Stroke Antithrombotic order at d/c?: Yes Dx of Atrial fib/flutter?: No Anticoagulant at discharge?: Yes Reason anticoagulant not ordered: Treatment not Indicated Statins at discharge?: Yes Primary Dx Acute Ischemic CVA?: Yes IV thrombolytic ordered during stay?: No Reason IV thrombolytic not ordered: Procedure not Indicated Discharge Plan Admission Admit Date/Time: 07/29/23 17:19 Primary Reason for Your Visit: Post stroke debility Attending Provider: Tracey Chacon Primary Care Provider: Bo Nicholas Consulting Providers: Lauryn Garcia; Sherlyn Omer; Jennifer Monreal; Akira Santana; Lina Hutchinson; URMILA JAIN; Tana Bass; Natalya Torres; Donaldo Damon; Crista Persaud Instructions Additional Instructions / Restrictions: 1. Sherri has had MANY set backs since her stroke. While on rehab she had an OR and Takotsubo's cardiomyopathy. She had severe delirium with severe agitation due to anti-psychotic drugs (Seroquel and Vraylar) that were started for treat resistant depression. Sherri lost a dtr very early in her life and her son suddenly at the age of 28 of unknown causes. She never had any therapy after these losses and she has been on many antidepressants with no resolution. She was fixated on these losses when admitted to rehab and could not stop talking about them. She was crying a lot and had decreased appetite and was not sleeping well. she had been on Remeron 30 mg daily and Viibryd 40 mg daily prior to the stroke. They were abruptly stopped at [facility] and she went into withdrawal. They were both restarted at the same doses despite the fact that she was very anxious and irritable. These 2 drugs are in the same class and I felt she had an element of serotonin S. The Viibryd was discontinued and Remeron was kept. She continued to be depressed and crying with no appetite and persistent insomnia. 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 After 1 dose she was transferred to the acute side of the hospital with an OR. She had Takotsubo's CM also. When she was transferred back to rehab she was restarted on Vraylar at a low dose and became severely agitated, delusional and had delirium. She had tolerated a low dose of Seroquel earlier in the admission and she was transitioned to Seroquel. Infectious W/U was negative and repeat imaging was negative for stroke. The delirium and severe agitation continued. We felt she may be having and adverse reaction to the antipsychotics and also to Keppra which can also cause agitation antipsychotics and Keppra were discontinued completely. She starting improving within 24-48 hours and the past 2 weeks she is pleasant, calm, appropriate and able to do 3 hours of therapy daily. She is not having delusions or hallucinations. She has not had any seizure activity. Appetite and intake are good. She continued to have insomnia and some depressive sx. Remeron was increased to 37.5 mg at HS and Melatonin was added for insomnia and she is doing much better. She realizes now that she needs psychotherapy to help her deal with the many losses in her life and now also with disability due to stroke. She wants to follow up with a psychiatrist and gave me a name. The office was closed on Thursday and the charge nurse will call on Thursday to try and schedule an appt for the near future for Sherri to be seen. I am hoping she will finally be able to move forward. 2. She had a few episodes of cystitis while on rehab. she was treated with Keflex (she has a PCN allergy) and she tolerated this well with no rash and no swelling or angioedema. 3. She will need to follow up with [facility] in the next 2-4 weeks for the CM and the OR. 4. She will also need to follow up with neurology. Discharge Orders/Prescriptions Prescriptions: New acetaminophen 325 mg Tablet 650 mg PO Q4H PRN PRN (Reason: Pain 1-10 Or Fever) Qty: 1 0RF carvedilol 12.5 mg Tablet 18.75 mg PO BIDCM Qty: 1 0RF melatonin 3 mg Tablet 3 mg PO QHS Qty: 1 0RF amlodipine 5 mg Tablet 5 mg PO DAILY Qty: 1 0RF magnesium hydroxide 400 mg/5 mL Suspension 30 ml PO X1 PRN (Reason: Constipation) Qty: 30 0RF bisacodyl 10 mg Suppository 10 mg MO X1 PRN (Reason: Constipation) Qty: 1 0RF mirtazapine 15 mg Tablet 37.5 mg PO QHS Qty: 2 0RF Rx Instructions: 1 and 1/2 tabs Q HS gabapentin 100 mg Capsule 100 mg PO 2100 Qty: 1 0RF Mag 64 64 mg Tablet,Delayed Release (Dr/Ec) 128 mg PO DAILY Qty: 1 0RF Petrolatum 33% [Eucerin Eqivalent] 1 applic topical QHS Qty: 1 0RF Rx Instructions: apply from the knees to the toes Q HS sennosides-docusate sodium [Stool Softener-Stimulant Laxat] 8.6-50 mg Tablet 2 tab PO BID Qty: 1 0RF diclofenac sodium [Voltaren Arthritis Pain] 1 % gel 2 g topical BID Qty: 100 0RF Rx Instructions: apply to the anterior shins and the feet BID Continued letrozole 2.5 mg tablet 2.5 mg PO DAILY omeprazole 20 mg capsule,delayed release(DR/EC) 20 mg PO DAILY latanoprost 1 DROP bottle 1 drp EACH EYE QHS Patient Comments: GLAUCOMA alendronate 70 mg tablet 70 mg PO Q7D polyethylene glycol 3350 [Miralax] 17 gram/dose powder 17 g PO DAILY losartan 50 mg Tablet 50 mg PO BID Qty: 0 0RF atorvastatin 40 mg Tablet 40 mg PO QHS Qty: 0 0RF aspirin 81 mg Tablet,Delayed Release (Dr/Ec) 81 mg PO BREAKFAST Qty: 0 0RF nitroglycerin 0.4 mg Tablet, Sublingual 0.4 mg sublingual Q5M PRN (Reason: Cardiac/Chest Pain) Qty: 0 0RF calcium carbonate-vitamin D3 1 TAB tablet 1 tablet PO DAILY@0800 Qty: 1 0RF Patient Comments: supplement Rx Instructions: She is non longer on a phosphate supplement. Discontinued vilazodone 20 mg tablet 10 mg PO DAILY magnesium 250 mg tablet 250 mg PO DAILY Hold Instructions: Order Completed acetaminophen [Tylenol Arthritis Pain] 650 mg tablet extended release 650 mg PO DAILY Hold Instructions: Order Completed mirtazapine 30 mg tablet 30 mg PO QHS levetiracetam [Keppra] 500 mg tablet 500 mg PO BID nifedipine [Procardia XL] 30 mg tablet extended release 24hr 30 mg PO DAILY carvedilol 12.5 mg Tablet 12.5 mg PO BID Qty: 0 0RF potassium, sodium phosphates 280-160-250 mg Powder In Packet 1 packet PO TID 2 Days Qty: 6 0RF Vraylar 1.5 mg capsule 1.5 mg PO QODAY Referrals / Follow Up: Bret Rosales [Other] (Neuro, snf to make appointment) Stephane Kemp [Other] (Cardiology, snf to make appointment) Bo Nicholas MD [Primary Care Provider] - Disposition Disposition (needs filled in before D/C Order can be placed): Assisted Facility Charges/Coding Visit Charges Inpatient E&M: 96648 Disch Hosp >30min
[2023-08-21 19:48] VITALS: BP 138/63; PULSE 74; RESP 17; TEMP 36.8; O2SAT 98
[2023-08-21] MEDS: Gabapentin 100 MG Capsule PO (20:42)
[2023-08-21] MEDS: Arthritis Pain Compound 60 CLICK TUBE TOPICAL (20:42)
[2023-08-21] MEDS: Atorvastatin Calcium 40 MG Tablet PO (20:43)
[2023-08-21] MEDS: MELATONIN 3 MG TABLET PO (20:43)
[2023-08-21] MEDS: Latanoprost 0.005% 1 Bottle 1 DRP EACH EYE (20:43)
[2023-08-21] MEDS: Mirtazapine 15 MG Tablet 37.5 MG PO (20:44)
[2023-08-22 01:38] VITALS: BMI 31.5
[2023-08-22 05:40] VITALS: BMI 31.7
[2023-08-22] MEDS: Aspirin E.C. 81 MG Tablet PO (07:49)
[2023-08-22] MEDS: Losartan Potassium 50 MG Tablet PO (07:49)
[2023-08-22] MEDS: Magnesium Chloride 64 MG Delay Rel.Tablet 128 MG PO (07:50)
[2023-08-22] MEDS: amLODIPine 5 MG Tablet PO (07:50)
[2023-08-22] MEDS: Petrolatum 33% Tube 1 APPLIC TOPICAL (07:51)
[2023-08-22] MEDS: Pantoprazole Sodium 20 MG Tablet PO (07:51)
[2023-08-22] MEDS: Polyethylene Glycol 3350 17 GM PACKET PO (07:51)
[2023-08-22] MEDS: Carvedilol 12.5 MG Tablet 18.75 MG PO (07:52)
[2023-08-22] MEDS: Senna/Docusate Sodium 1 Tablet 2 TABLET PO (07:54)
[2023-08-22] MEDS: Arthritis Pain Compound 60 CLICK TUBE TOPICAL (07:54)
[2023-08-22 09:34] VITALS: BP 127/54; PULSE 63; RESP 18; TEMP 36.8; O2SAT 98
--- NOTE | 2023-08-22 10:17 | TREXTCAR_ITS ---
Diet Diet Order/Speech Therapy: 07/29/23 17:33 Diet: Cardiac - Heart Healthy Diet Comments: 2000mg calories Routine Orders/Code Status Enema Type: Fleetz Enema Frequency: Daily PRN Suppository Type: Dulcolax 10mg Suppository Frequency: Daily PRN O2 Liters per Minute: 2 LPM O2 Frequency: PRN (She should be on O2 anytime she is sleeping - suspected sleep apnea. Desats at night. Sleep study needed.) Keep PO Greater than or Equal to (%): 90 Code Status: Full Code Therapies Weight Bearing: Weight bearing as tolerated Extremity Affected:: Left Lower (Left knee is soft and alba. ) and Left Upper Physical Therapy: Eval and Treat Occupational Therapy: Eval and Treat Speech Therapy: Eval and Treat Problem/Diagnosis (1) Debility: Status: Acute Code(s): R53.81 - Other malaise (2) Ischemic cerebrovascular accident (CVA): Status: Acute Code(s): I63.9 - Cerebral infarction, unspecified Comment: Right MCA distribution due to an M2 occlusion. 06/23/2023. Received TNK. No thrombectomy performed (3) Cerebrovascular disease: Status: Inactive Code(s): I67.9 - Cerebrovascular disease, unspecified (4) Closed TBI (traumatic brain injury): Status: Acute Code(s): S06.9XAA - Unspecified intracranial injury with loss of consciousness status unknown, initial encounter (5) Left hemiparesis: Status: Acute Code(s): G81.94 - Hemiplegia, unspecified affecting left nondominant side (6) Alien hand syndrome: Status: Acute Code(s): R41.4 - Neurologic neglect syndrome Comment: Left side (7) STEMI (ST elevation myocardial infarction): Status: Chronic Code(s): I21.3 - ST elevation (STEMI) myocardial infarction of unspecified site (8) Takotsubo cardiomyopathy: Status: Acute Code(s): I51.81 - Takotsubo syndrome Plan: Left ventricular ejection fraction was estimated at 45% on the transthoracic echocardiogram but on the cardiac catheterization the left ventricular ejection fraction was 20 to 25%. (9) Depression: Status: Chronic Code(s): F32.A - Depression, unspecified Plan: Resistant to treatment with antidepressants. Has never had any psychotherapy but, she is now agreeable to follow up with psychiatry. She has chosen a psychiatrist. We tried to schedule and appt for her but, the office was closed on Thursday when we found out Sherri was being discharged on 08/22/23. [facility] therapy [phone] [place] [address] [address] [place], [place] Dr. Tracey Sinclair charge nurse will call the office on Thursday and try and get an appt for SHERRI. (10) Leg pain, bilateral: Status: Acute Code(s): M79.604 - Pain in right leg; M79.605 - Pain in left leg Plan: Much improved with gabapentin 100 mg at at bedtime. She tells me she has not had any pain in her feet for the past couple days. Plan DC to [facility] for additional PT/OT/ST Needs an overnight sleep study Follow up with Junior ray within the next month Needs follow up with neurology She has severe delirium/agitation with delusions and hallucinations when given Vraylar and Seroquel. Avoid antipsychotics. Also had agitation with Keppra. Allergies/Procedures Done in Hospital Allergies Penicillins [PCN] Allergy (Severe, Verified 08/21/23 14:33) Anaphylaxis cariprazine [From Vraylar] Adverse Reaction (Severe, Verified 08/21/23 14:33) Delirium/severe agitation Would avoid ANY antipsychotics. quetiapine [From Seroquel] Adverse Reaction (Severe, Verified 08/21/23 14:33) Delirium/severe agitation Procedures: 2-D Echocardiogram Type of Care/Length of Stay Estimated LOS: Convalescent Care Less Than 30 days Type of Care Needed: Skilled Rehab Potential: Good Prognosis: Good Additional Orders/Day of Discharge Day of Discharge: 08/22/23 Dietary and Speech Recommendations Dietitian Recommendations/Changes: continue cardiac diet as ordered Follow Up Care Please follow up with your Primary Care Physician in: Following DC from [facility] Please Follow Up With: neurology Please Follow Up With: Junior Ray When: within the next month Please Follow Up With: oncology When: within the next few weeks........due for her MMG Please Follow Up With: Psychiatry Discharge Plan Admission Admit Date/Time: 07/29/23 17:19 Primary Reason for Your Visit: Post stroke debility Attending Provider: Tracey Chacon Primary Care Provider: Bo Nicholas Consulting Providers: Lauryn Garcia; Sherlyn Omer; Jennifer Monreal; Akira Santana; Lina Hutchinson; URMILA JAIN; Tana Bass; Natalya Torres; Donaldo Damon; Crista Persaud Instructions Additional Instructions / Restrictions: 1. Sherri has had MANY set backs since her stroke. While on rehab she had an WY and Takotsubo's cardiomyopathy. She had severe delirium with severe agitation due to anti-psychotic drugs (Seroquel and Vraylar) that were started for treat resistant depression. Sherri lost a dtr very early in her life and her son suddenly at the age of 26 of unknown causes. She never had any therapy after these losses and she has been on many antidepressants with no resolution. She was fixated on these losses when admitted to rehab and could not stop talking about them. She was crying a lot and had decreased appetite and was not sleeping well. she had been on Remeron 30 mg daily and Viibryd 40 mg daily prior to the stroke. They were abruptly stopped at [facility] and she went into withdrawal. They were both restarted at the same doses despite the fact that she was very anxious and irritable. These 2 drugs are in the same class and I felt she had an element of serotonin S. The Viibryd was discontinued and Remeron was kept. She continued to be depressed and crying with no appetite and persistent insomnia. 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 After 1 dose she was transferred to the acute side of the hospital with an WY. She had Takotsubo's CM also. When she was transferred back to rehab she was restarted on Vraylar at a low dose and became severely agitated, delusional and had delirium. She had tolerated a low dose of Seroquel earlier in the admission and she was transitioned to Seroquel. Infectious W/U was negative and repeat imaging was negative for stroke. The delirium and severe agitation continued. We felt she may be having and adverse reaction to the antipsychotics and also to Keppra which can also cause agitation antipsychotics and Keppra were discontinued completely. She starting improving within 24-48 hours and the past 2 weeks she is pleasant, calm, appropriate and able to do 3 hours of therapy daily. She is not having delusions or hallucinations. She has not had any seizure activity. Appetite and intake are good. She continued to have insomnia and some depressive sx. Remeron was increased to 37.5 mg at HS and Melatonin was added for insomnia and she is doing much better. She realizes now that she needs psychotherapy to help her deal with the many losses in her life and now also with disability due to stroke. She wants to follow up with a psychiatrist and gave me a name. The office was closed on Thursday and the charge nurse will call on Thursday to try and schedule an appt for the near future for Sherri to be seen. I am hoping she will finally be able to move forward. 2. She had a few episodes of cystitis while on rehab. she was treated with Keflex (she has a PCN allergy) and she tolerated this well with no rash and no swelling or angioedema. 3. She will need to follow up with [facility] in the next 2-4 weeks for the CM and the WY. 4. She will also need to follow up with neurology. Discharge Orders/Prescriptions Prescriptions: New acetaminophen 325 mg Tablet 650 mg PO Q4H PRN PRN (Reason: Pain 1-10 Or Fever) Qty: 1 0RF carvedilol 12.5 mg Tablet 18.75 mg PO BIDCM Qty: 1 0RF melatonin 3 mg Tablet 3 mg PO QHS Qty: 1 0RF amlodipine 5 mg Tablet 5 mg PO DAILY Qty: 1 0RF magnesium hydroxide 400 mg/5 mL Suspension 30 ml PO X1 PRN (Reason: Constipation) Qty: 30 0RF bisacodyl 10 mg Suppository 10 mg MN X1 PRN (Reason: Constipation) Qty: 1 0RF mirtazapine 15 mg Tablet 37.5 mg PO QHS Qty: 2 0RF Rx Instructions: 1 and 1/2 tabs Q HS gabapentin 100 mg Capsule 100 mg PO 2100 Qty: 1 0RF Mag 64 64 mg Tablet,Delayed Release (Dr/Ec) 128 mg PO DAILY Qty: 1 0RF Petrolatum 33% [Eucerin Eqivalent] 1 applic topical QHS Qty: 1 0RF Rx Instructions: apply from the knees to the toes Q HS sennosides-docusate sodium [Stool Softener-Stimulant Laxat] 8.6-50 mg Tablet 2 tab PO BID Qty: 1 0RF diclofenac sodium [Voltaren Arthritis Pain] 1 % gel 2 g topical BID Qty: 100 0RF Rx Instructions: apply to the anterior shins and the feet BID Continued letrozole 2.5 mg tablet 2.5 mg PO DAILY omeprazole 20 mg capsule,delayed release(DR/EC) 20 mg PO DAILY latanoprost 1 DROP bottle 1 drp EACH EYE QHS Patient Comments: GLAUCOMA alendronate 70 mg tablet 70 mg PO Q7D polyethylene glycol 3350 [Miralax] 17 gram/dose powder 17 g PO DAILY losartan 50 mg Tablet 50 mg PO BID Qty: 0 0RF atorvastatin 40 mg Tablet 40 mg PO QHS Qty: 0 0RF aspirin 81 mg Tablet,Delayed Release (Dr/Ec) 81 mg PO BREAKFAST Qty: 0 0RF nitroglycerin 0.4 mg Tablet, Sublingual 0.4 mg sublingual Q5M PRN (Reason: Cardiac/Chest Pain) Qty: 0 0RF calcium carbonate-vitamin D3 1 TAB tablet 1 tablet PO DAILY@0800 Qty: 1 0RF Patient Comments: supplement Rx Instructions: She is non longer on a phosphate supplement. Discontinued vilazodone 20 mg tablet 10 mg PO DAILY magnesium 250 mg tablet 250 mg PO DAILY Hold Instructions: Order Completed acetaminophen [Tylenol Arthritis Pain] 650 mg tablet extended release 650 mg PO DAILY Hold Instructions: Order Completed mirtazapine 30 mg tablet 30 mg PO QHS levetiracetam [Keppra] 500 mg tablet 500 mg PO BID nifedipine [Procardia XL] 30 mg tablet extended release 24hr 30 mg PO DAILY carvedilol 12.5 mg Tablet 12.5 mg PO BID Qty: 0 0RF potassium, sodium phosphates 280-160-250 mg Powder In Packet 1 packet PO TID 2 Days Qty: 6 0RF Vraylar 1.5 mg capsule 1.5 mg PO QODAY Referrals / Follow Up: Bret Rosales [Other] (Neuro, penitentiary to make appointment) Stephane Kemp [Other] (Cardiology, penitentiary to make appointment) Bo Nicholas MD [Primary Care Provider] - Disposition Disposition (needs filled in before D/C Order can be placed): Long Term Facility (4) Closed TBI (traumatic brain injury) Qualifiers: Encounter type: subsequent encounter Loss of consciousness presence/duration: unknown LOC status Qualified Code(s): S06.9XAD - Unspecified intracranial injury with loss of consciousness status unknown, subsequent encounter (7) STEMI (ST elevation myocardial infarction) Qualifiers: Involved coronary artery: unspecified coronary artery Qualified Code(s): I21.3 - ST elevation (STEMI) myocardial infarction of unspecified site
--- NOTE | 2023-08-22 11:09 | NURSING ---
report called to [facility] with no questions voiced. all belonings packed and with pt.
--- NOTE | 2023-08-22 11:15 | CASEMGMT ---
Social work Collaboration with Dr. Chacon on discharge orders and transfer summary. Completed convalescent exemption form via the [employer] system. Uploaded retirement facility transfer summary and care port. Message sent to [facility] in care port that 7000 exemption form was complete and could be found in the [employer]. Copy of exemption form made for patient's medical record. Collaborated with patient's nurse Yaz on discharge planning and need to call report. Plan: discharge to [facility], skilled level of care, convalescent exemption form. -ISAIAH Diana, IP ARCHITECT *This note was generated with [employer] dictation software. It may contain incorrect words, spelling, and punctuation that were not noted in review of the chart prior to signing*
== END 2023-08-22 13:30 | disposition skilled nursing facility (03) | DRG 56 ==
PROVIDERS: Admitting Provider Internal Medicine; PCP Family Medicine; Visit Provider Internal Medicine
DX: I69.354 Hemiplegia and hemiparesis following cerebral infarction affecting left non-dominant side (principal); I21.3 ST elevation (STEMI) myocardial infarction of unspecified site; G93.40 Encephalopathy, unspecified; R41.4 Neurologic neglect syndrome; I51.81 Takotsubo syndrome; L03.115 Cellulitis of right lower limb; F33.9 Major depressive disorder, recurrent, unspecified; H53.47 Heteronymous bilateral field defects; I69.398 Other sequelae of cerebral infarction; I10 Essential (primary) hypertension; I34.0 Nonrheumatic mitral (valve) insufficiency; I44.7 Left bundle-branch block, unspecified; I25.10 Atherosclerotic heart disease of native coronary artery without angina pectoris; E78.2 Mixed hyperlipidemia; K21.9 Gastro-esophageal reflux disease without esophagitis; G47.33 Obstructive sleep apnea (adult) (pediatric); E66.9 Obesity, unspecified; S06.6X9D Traumatic subarachnoid hemorrhage with loss of consciousness of unspecified duration, subsequent encounter; H40.9 Unspecified glaucoma; G47.00 Insomnia, unspecified; M81.0 Age-related osteoporosis without current pathological fracture; Z79.811 Long term (current) use of aromatase inhibitors; Z79.82 Long term (current) use of aspirin; R33.9 Retention of urine, unspecified; Z79.899 Other long term (current) drug therapy; T43.595A Adverse effect of other antipsychotics and neuroleptics, initial encounter; Z68.32 Body mass index [BMI] 32.0-32.9, adult
CPT/HCPCS: 36415; 70450; 73620; 80048; 80053; 81001; 82274; 82962; 83735; 84100; 84550; 85014; 85018; 85025; 85027; 87086; 92507; 92523; 93005; 95819; 97110; 97112; 97116; 97129; 97130; 97162; 97166; 97530; 97535; 97542; 97802; 97803; J7030; J7040; J7120; A4216

== ENCOUNTER → 2023-10-13 | Outpatient (CLI) | payer MEDICARE, SELFPAY ==
[2023-10-13 16:14] LABS: PTHIN 119.7 pg/mL (18.4-80.1)
[2023-10-13 16:38] LABS: Vitamin B12 504 pg/mL (211-911); Vitamin D,25 Hydroxy 37.4 ng/mL
[2023-10-13 16:51] LABS: Ferritin 101 ng/mL (8-252)
[2023-10-15 15:09] LABS: PROEL- A/G Ratio 1.1 (0.7-1.7); PROEL- Albumin 3.5 g/dL (2.9-4.4); PROEL- Alpha-1 Globulin 0.3 g/dL (0.0-0.4); PROEL- Alpha-2 Globulin 0.9 g/dL (0.4-1.0); PROEL- Globulin, Total 3.2 g/dL (2.2-3.9); PROEL- TOTAL PROTEIN 6.7 g/dL (6.0-8.5); PROEL-M-Spike Not Observed g/dL (Not Observed)
== END | disposition home or self-care (01) ==
LOC: MFPLAB 10:41 → MTLAB 10:56
PROVIDERS: PCP Family Medicine; Referring Provider Family Medicine; Visit Provider Family Medicine
DX: R53.83 Other fatigue (principal); E21.0 Primary hyperparathyroidism; D64.9 Anemia, unspecified
CPT/HCPCS: 36415; 82306; 82607; 82728; 82746; 83970; 84165

== ENCOUNTER → 2023-10-26 | Outpatient (CLI) | payer MEDICARE, SELFPAY ==
--- NOTE | 2023-10-26 12:37 | ECHOLC_ITS ---
Reason For Study: s/p [place], Takotsubo Procedure This was a limited 2D transthoracic echocardiogram. Myocardial strain analysis was performed in this exam to aid in the assessment of cardiac function. Contrast injection was performed. Exam performed in department. Left Ventricle Normal LV size. The global longitudinal strain = -9.9% (abnormal). The estimated ejection fraction is 40 %. Avilla : Hypokinetic. Right Ventricle Normal RV size. Normal systolic function. Atria The left and right atria are normal. No doppler evidence for ASD. Mitral Valve There is no mitral valve stenosis. No mitral valve insufficiency. Tricuspid Valve There is no tricuspid stenosis. Trivial tricuspid valve insufficiency. Pulmonary artery systolic pressure is 30 mmHg. Aortic Valve Trisinus/trileaflet aortic valve. There is no aortic stenosis. No aortic valve insufficiency. Pulmonic Valve There is no pulmonic valvular stenosis. No pulmonic valve insufficiency. Great Vessels Normal aortic root. Pericardium/Pleural No pericardial effusion. Medication 22 gauge I.V. with prn adaptor inserted into left arm. Diluted definity 3ml given slow IV push to enhance endocardial definition. Performed a rapid injection of agitated mix of 9 cc saline and 1cc air to assess for atrial septal defect. MMode/2D Measurements & Calculations LVIDd: 4.4 cm IVSd: 1.1 cm Ao root diam: 3.1 cm LVIDs: 3.3 cm LVPWd: 0.98 cm FS: 25.3 % LVAd ap4: 30.9 cm2 LVAd ap2: 28.3 cm2 SV(MOD-sp4): 33.9 ml LVLd ap4: 7.8 cm LVLd ap2: 7.4 cm EDV(MOD-sp4): 99.1 ml EDV(MOD-sp2): 88.7 ml EDV(sp4-el): 103.2 ml EDV(sp2-el): 91.7 ml LVAs ap4: 23.8 cm2 LVAs ap2: 20.8 cm2 LVLs ap4: 7.1 cm LVLs ap2: 6.8 cm ESV(MOD-sp4): 65.3 ml ESV(MOD-sp2): 53.0 ml ESV(sp4-el): 68.2 ml ESV(sp2-el): 53.4 ml EF(MOD-sp4): 34.2 % EF(MOD-sp2): 40.2 % EF(sp4-el): 33.9 % SV(MOD-sp2): 35.7 ml SV(sp4-el): 35.0 ml Time Measurements MV dec time: 0.22 sec Doppler Measurements & Calculations MV E max yee: 55.2 cm/sec TR max yee: 259.1 cm/sec MV A max yee: 83.9 cm/sec TR max P.9 mmHg MV E/A: 0.66 ECHO/Echo Limited w/Contrast Interpretation Summary The estimated ejection fraction is 40 %. Avilla : Hypokinetic. Ordering Physician: Stephane Kemp Referring Physician: Bo Nicholas Performed By: Adam Stafford RCS
== END | disposition home or self-care (01) ==
PROVIDERS: PCP Family Medicine; Referring Provider Internal Medicine Cardiovascular Disease; Visit Provider Internal Medicine Cardiovascular Disease
DX: I51.81 Takotsubo syndrome (principal); I25.2 Old myocardial infarction
CPT/HCPCS: 93308; Q9957; A4216; C8924

== ENCOUNTER → 2023-10-29 | Outpatient (CLI) | payer MEDICARE, SELFPAY ==
--- NOTE | 2023-10-29 12:27 | US_ITS ---
STUDY: THYROID ULTRASOUND REASON FOR EXAM: Female, 73 years old. Elevated PTH TECHNIQUE: Ultrasound evaluation of the thyroid was performed with real-time and static denney-scale imaging. COMPARISON: None. FINDINGS: RIGHT LOBE: The right lobe of the thyroid gland measures 5.4 x 1.2 x 1.5 cm. There is a homogeneous echotexture. There is a solid hypoechoic 0.5 cm nodule and 2 separate thyroid cysts each measuring 0.4 cm. No specific follow-up needed for the cysts. Follow-up for the solid nodule is that the nodule is solid or almost completely solid, hypoechoic, xynat-guyp-xifi, smoothly marginated and contains no echogenic foci. TI-RADS points: 4. TI-RADS category: TR4. This nodule is moderately suspicious but no FNA or follow-up is necessary given the small size of this nodule. LEFT LOBE: The left lobe of the thyroid gland measures 4.5 x 1.4 x 1.6 cm. There is a homogeneous echotexture. There is a solid 0.4 x 0.3 x 0.5 cm hypoechoic nodule and a simple 1.7 cm simple cyst. Follow-up is the same for the solid nodule as listed above ISTHMUS: The isthmus measures 0.3 cm. The regional lymph nodes are normal. There is no sonographic evidence of enlarged parathyroid gland. US/Thyroid IMPRESSION: Slight enlargement of the right thyroid lobe with bilateral solid hypoechoic nodules. Follow-up and categorization as described above. Bilateral simple thyroid cysts, no specific follow-up needed No sonographic evidence of enlarged parathyroid gland Electronically Signed: Roverto Ramirez MD at 15:35 EDT ,
== END | disposition home or self-care (01) ==
LOC: US 12:25
PROVIDERS: PCP Family Medicine; Referring Provider Family Medicine; Visit Provider Family Medicine
DX: R79.89 Other specified abnormal findings of blood chemistry (principal)
CPT/HCPCS: 76536

== ENCOUNTER 2023-11-25 10:45 | Emergency (ER) | payer MEDICARE, SELFPAY ==
[2023-11-25 10:48] VITALS: BP 100/48; PULSE 63; RESP 16; TEMP 36.4; O2SAT 97; BMI 31.8
--- NOTE | 2023-11-25 11:01 | EDS_ITS ---
HPI History of Present Illness Chief Complaint: Syncope Informant: patient, spouse/S.O. and EMS Narrative Narrative: 73-year-old female presenting to the emergency room with syncopal episode. Patient has a history earlier this year of having an embolic stroke with conversion to hemorrhagic stroke. She was seen at [facility]. She has known bilateral carotid artery stenosis for which she has been referred to vascular surgery is due to see him at the end of the month. Following her stroke the patient had Takotsubo's cardiomyopathy was noted to have mild to moderate coronary artery disease. She followed up with cardiology and had an echocardiogram done at the end of October which showed apical hypokinesis and an ejection fraction of 40%. She has residual left hemianopsia and left hand weakness. She states that today she was sitting on her bed getting some close out of the [place] when she slipped onto the floor. She states she was in the process of getting up when her and family came home and helped her get into a chair. She remembers feeling lightheaded and sweaty and reportedly had a syncopal episode. EMS states that they had normal vital signs and that she did indeed feel sweaty to them. is not present on my initial evaluation. She currently denies any chest pain palpitations. She notes her blood pressure has been in the 90- 100 systolic range and has been working with cardiology to remove blood pressure altering medications. She currently does not have any specific complaints. [facility] Medical History Coronary artery disease STEMI (ST elevation myocardial infarction) Sleep apnea Stroke/cerebrovascular accident Takotsubo cardiomyopathy Uncontrolled hypertension Eosinophilia, unspecified Osteoporosis Hemianopia of left eye Acute left hemiparesis Glaucoma Obesity (BMI 30.0-34.9) Osteoarthritis GERD (gastroesophageal reflux disease) Depression HTN (hypertension) Subarachnoid hemorrhage Ischemic cerebrovascular accident (CVA) Ulnar neuropathy at elbow of left upper extremity Tendonitis Left posterior interosseous nerve syndrome Gastric ulcer Left hand weakness History of breast cancer Major depressive disorder, recurrent episode, moderate Lesion of right radial nerve Home Medications ?Medication ?Instructions ?Recorded ?Last Taken ?Type latanoprost 0.005 % eye drops 1 drp EACH EYE QHS Eye drops 08/10/14 07/28/23 History letrozole 2.5 mg tablet 2.5 mg PO DAILY Breast cancer 08/29/20 07/29/23 History omeprazole 20 mg capsule,delayed 20 mg PO DAILY GERD 08/30/20 07/29/23 History release alendronate 70 mg tablet 70 mg PO Q7D Bone health 07/06/23 Unknown History polyethylene glycol 3350 17 17 g PO DAILY constipation 07/26/23 Unknown History gram/dose oral powder (Miralax) aspirin 81 mg tablet,delayed 81 mg PO BREAKFAST heart health #0 07/29/23 07/29/23 Rx release tabs nitroglycerin 0.4 mg sublingual 0.4 mg sublingual Q5M PRN 07/29/23 Unknown Rx tablet Cardiac/Chest Pain #0 tabs Petrolatum 33% [Eucerin Eqivalent] 1 applic topical QHS #1 applic 08/21/23 Unknown Rx acetaminophen 325 mg tablet 650 mg (2 x 325 mg) PO Q4H PRN PRN 08/21/23 Unknown Rx Pain 1-10 Or Fever #1 TAB bisacodyl 10 mg rectal suppository 10 mg WA X1 PRN Constipation #1 ea 08/21/23 Unknown Rx calcium carbonate 600 mg-vitamin 1 tablet PO DAILY@0800 supplement 08/21/23 Unknown Rx D3 20 mcg (800 unit) tablet #1 TAB diclofenac sodium 1 % topical gel 2 g topical BID #100 grams 08/21/23 Unknown Rx (Voltaren Arthritis Pain) gabapentin 100 mg capsule 100 mg PO 2100 #1 cap 08/21/23 Unknown Rx magnesium chloride 64 mg 128 mg (2 x 64 mg) PO DAILY #1 TAB 08/21/23 Unknown Rx (magnesium chloride) tablet,delayed release (Mag 64) magnesium hydroxide 400 mg/5 mL 30 ml PO X1 PRN Constipation #30 mL 08/21/23 Unknown Rx oral suspension melatonin 3 mg tablet 3 mg PO QHS #1 TAB 08/21/23 Unknown Rx mirtazapine 15 mg tablet 37.5 mg (2.5 x 15 mg) PO QHS #2 08/21/23 Unknown Rx tabs sennosides 8.6 mg-docusate sodium 2 tab PO BID #1 TAB 08/21/23 Unknown Rx 50 mg tablet (Stool Softener-Stimulant Laxative) amlodipine 5 mg tablet 5 mg PO DAILY #60 tabs 09/16/23 Unknown Rx atorvastatin 40 mg tablet 40 mg PO QHS cholesterol #90 tabs 09/16/23 Unknown Rx carvedilol 12.5 mg tablet 18.75 mg (1.5 x 12.5 mg) PO BIDCM 09/16/23 Unknown Rx #90 tabs losartan 50 mg tablet 50 mg PO BID blood pressure #120 09/16/23 Unknown Rx tabs Allergy/AdvReac Type Severity Reaction Status Date / Time Penicillins (PCN) Allergy Severe Anaphylaxis Verified 09/15/23 10:37 cariprazine (From Vraylar) AdvReac Severe Delirium/severe Verified 09/15/23 10:37 agitation quetiapine (From Seroquel) AdvReac Severe Delirium/severe Verified 09/15/23 10:37 agitation levetiracetam (From Keppra) AdvReac Other Verified 09/15/23 10:37 Family History Aunt Cancer Sister Cancer Surgical History History of right mastectomy History of lumpectomy of right breast Social History household members: spouse housing: other details: One-story house with a basement. Laundry is upstairs number of children: 1 current occupational status: retired Smoking Status: Never smoker Electronic Cigarette Use: not used second hand exposure: No alcohol intake: current alcohol intake frequency: holidays/special occasions only substance use type: does not use ROS ROS ED Constitutional Constitutional ED: Denies chills, fever(s) or weight loss Eyes Eyes: Denies change in vision or diplopia ENT ENT ED: Denies ear pain, rhinorrhea or sore throat Cardiovascular Cardiovascular: Reports other Details: Syncope ; Denies chest pain, orthopnea, palpitations or racing heartbeat Respiratory/Chest Respiratory/Chest: Denies cough, dyspnea or orthopnea Gastrointestinal Gastrointestinal: Denies abdominal pain, diarrhea, nausea or vomiting Genitourinary Genitourinary ED: Denies dysuria, hematuria or urinary frequency Musculoskeletal Musculoskeletal: Denies arthralgias or myalgias Integumentary Denies abscess or rash Neurologic Neurologic: Reports other Details: Chronic poststroke changes ; Denies headache(s), paresthesias or weakness Psychiatric Psychiatric: Denies anxiety, depression, suicidal ideation or suicidal thoughts Endocrine Endocrinology: Denies polydipsia, polyphagia or polyuria Allergic/Immunologic Allergic/Immunologic ED: Denies mouth swelling, tongue swelling or urticaria EXAM Physical Exam Const Vital Signs: 11/25/23 10:48 11/25/23 12:09 11/25/23 12:26 Temperature 97.6 F L Temperature Source Temporal Pulse Rate 63 76 Pulse Rate [Lying] 64 Pulse Rate [Sitting (for 1 minute prior to obtaining)] 72 Pulse Rate [Standing (for 1 minute prior to obtaining)] 81 Respiratory Rate 16 18 Blood Pressure 100/48 L 111/49 L Blood Pressure [Lying] 116/82 H Blood Pressure [Sitting (for 1 minute prior to obtaining)] 102/66 Blood Pressure [Standing (for 1 minute prior to obtaining)] 122/83 H Blood Pressure Mean 65 69 Blood Pressure Mean [Lying] 93 Blood Pressure Mean [Sitting (for 1 minute prior to obtaining)] 78 Blood Pressure Mean [Standing (for 1 minute prior to obtaining)] 96 Pulse Ox 97 97 Oxygen Delivery Method Room Air Room Air 11/25/23 14:00 Temperature Temperature Source Pulse Rate 77 Pulse Rate [Lying] Pulse Rate [Sitting (for 1 minute prior to obtaining)] Pulse Rate [Standing (for 1 minute prior to obtaining)] Respiratory Rate 17 Blood Pressure 115/61 Blood Pressure [Lying] Blood Pressure [Sitting (for 1 minute prior to obtaining)] Blood Pressure [Standing (for 1 minute prior to obtaining)] Blood Pressure Mean 79 Blood Pressure Mean [Lying] Blood Pressure Mean [Sitting (for 1 minute prior to obtaining)] Blood Pressure Mean [Standing (for 1 minute prior to obtaining)] Pulse Ox 97 Oxygen Delivery Method Room Air Positive well nourished and well developed General Appearance ED: well developed HEENT Reports normocephalic, head/scalp atraumatic and moist mucous membranes Eyes PERRL and EOMs intact bilaterally Neck no lymphadenopathy, supple and no JVD Resp normal respiratory effort and clear to auscultation bilaterally Cardio regular rate, regular rhythm and no murmurs GI normal to inspection, nondistended, normoactive bowel sounds and non-tender Palpation: soft Back/Spine no CVA tenderness and normal ROM Extremity normal to inspection General Extremety ED: Negative for edema General Extremity: Negative for edema Neuro oriented x3 and CN's II-XII intact bilaterally Sensorium / Orientation: alert Motor Exam: strength 5/5 throughout Psych mental status grossly normal Mood & Affect: Negative for depressed or tearful Skin no rashes or lesions noted and no wounds MDM MDM MDM Narrative Medical decision making narrative: Differential diagnosis includes but not limited to anemia, orthostatic hypotension, vasovagal syncope, cardiac dysrhythmia, ACS, dehydration. White count 12.9 with hemoglobin 12.3, glucose 111. BUN 23 creatinine 1.08. 2 sets of cardiac enzymes are normal. Urinalysis demonstrates 1+ bacteria 25-50 white cells negative nitrates. This will be sent for culture. I will place her on some Macrobid as she is relatively asymptomatic from this. She has not had any events on the monitor. My independent interpretation of the chest x-ray is no acute process. EKG is sinus with left bundle branch block and unchanged from prior. History & Record Review Discussion w/independent historian: Patient and Significant other Additional record(s) reviewed:: No prior records Lab Data Attestation: I reviewed the patient's lab results. Labs: Laboratory Results - last 24 hr 11/25/23 11/25/23 11/25/23 11:05 12:24 13:35 WBC 12.9 H RBC 4.08 L Hgb 12.3 Hct 39.6 MCV 97.1 MCH 30.1 MCHC 31.1 L RDW Std Deviation 48.5 H RDW Coeff of Kenisha 13.5 Plt Count TNP MPV 12.8 H Immature Gran % (Auto) 0.400 Neut % (Auto) 75.5 H Lymph % (Auto) 11.2 L [place] % (Auto) 5.0 Eos % (Auto) 7.0 H Baso % (Auto) 0.9 Absolute Neuts (auto) 9.8 H Absolute Lymphs (auto) 1.45 Nucleated RBC % 0 Platelet Estimate ADEQUATE Sodium 137 Potassium 4.8 Chloride 111 H Carbon Dioxide 21.0 Anion Gap 5 BUN 23 H Creatinine 1.08 H Estim Creat Clear Calc 47.22 Est GFR (MDRD) Af Amer 64 Est GFR (MDRD) Non-Af 53 L BUN/Creatinine Ratio 21.3 H Glucose 111 H Calcium 10.0 Magnesium 2.1 Total Bilirubin 0.60 Direct Bilirubin 0.15 AST 39 H ALT 45 Alkaline Phosphatase 246 H Troponin I High Sens 12 13 Total Protein 7.0 Albumin 3.3 Globulin 3.7 Urine Color Yellow Urine Clarity Sl. Cloudy Urine pH 6.5 Ur Specific [place] 1.010 Urine Protein 30 H Urine Glucose (UA) Normal Urine Ketones 5 H Urine Occult Blood Negative Urine Nitrite Negative Urine Bilirubin Negative Urine Urobilinogen Normal Ur Leukocyte Esterase 500 H Urine RBC 0 SEEN Urine WBC 25-50 SEEN Ur Squamous Epith Cells 0-5 SEEN Urine Bacteria 1+ Hyaline Casts 0-5 SEEN Urine Mucus 0 SEEN Radiography Diagnostic Testing: Clinical Impression(s) from Imaging Studies Chest X-Ray 11/25/23 11:18 IMPRESSION: Normal x-ray examination of the chest. Electronically Signed: Gordo Clay MD at 12:09 EDT , EKG Initial EKG: Attestation: I personally reviewed and interpreted this EKG as follows: Comments: Normal sinus rhythm ventricular rate of 67 bpm. Old left bundle branch block again noted Discharge Plan Triage Chief Complaint: Syncope ED Provider: Jesse Hernandez Dx/Rx/DC Orders Clinical Impression: Syncope, HTN (hypertension) Instructions: ED Fainting, Uncertain Cause Prescriptions: No Action letrozole 2.5 mg tablet 2.5 mg PO DAILY omeprazole 20 mg capsule,delayed release(DR/EC) 20 mg PO DAILY latanoprost 1 DROP bottle 1 drp EACH EYE QHS Patient Comments: GLAUCOMA alendronate 70 mg tablet 70 mg PO Q7D polyethylene glycol 3350 [Miralax] 17 gram/dose powder 17 g PO DAILY aspirin 81 mg Tablet,Delayed Release (Dr/Ec) 81 mg PO BREAKFAST Qty: 0 0RF nitroglycerin 0.4 mg Tablet, Sublingual 0.4 mg sublingual Q5M PRN (Reason: Cardiac/Chest Pain) Qty: 0 0RF acetaminophen 325 mg Tablet 650 mg PO Q4H PRN PRN (Reason: Pain 1-10 Or Fever) Qty: 1 0RF melatonin 3 mg Tablet 3 mg PO QHS Qty: 1 0RF magnesium hydroxide 400 mg/5 mL Suspension 30 ml PO X1 PRN (Reason: Constipation) Qty: 30 0RF bisacodyl 10 mg Suppository 10 mg WA X1 PRN (Reason: Constipation) Qty: 1 0RF mirtazapine 15 mg Tablet 37.5 mg PO QHS Qty: 2 0RF Rx Instructions: 1 and 1/2 tabs Q HS gabapentin 100 mg Capsule 100 mg PO 2100 Qty: 1 0RF Mag 64 64 mg Tablet,Delayed Release (Dr/Ec) 128 mg PO DAILY Qty: 1 0RF Petrolatum 33% [Eucerin Eqivalent] 1 applic topical QHS Qty: 1 0RF Rx Instructions: apply from the knees to the toes Q HS sennosides-docusate sodium [Stool Softener-Stimulant Laxat] 8.6-50 mg Tablet 2 tab PO BID Qty: 1 0RF diclofenac sodium [Voltaren Arthritis Pain] 1 % gel 2 g topical BID Qty: 100 0RF Rx Instructions: apply to the anterior shins and the feet BID calcium carbonate-vitamin D3 1 TAB tablet 1 tablet PO DAILY@0800 Qty: 1 0RF Patient Comments: supplement Rx Instructions: She is non longer on a phosphate supplement. amlodipine 5 mg tablet 5 mg PO DAILY Qty: 60 1RF atorvastatin 40 mg tablet 40 mg PO QHS Qty: 90 3RF carvedilol 12.5 mg tablet 18.75 mg PO BIDCM Qty: 90 1RF losartan 50 mg tablet 50 mg PO BID Qty: 120 1RF Primary Care Provider: Bo Nicholas Referrals: Bo Nicholas MD [Primary Care Provider] - 3-5 Days if not improving Activity Restrictions/Additional Instructions: If you have recurrent passing out or worsening please return to the emergency department for repeat examination Print Language: Citizen Of [place] Disposition Disposition: Home, Self Care NIHSS NIHSS 1a. Level of Consciousness: Alert; keenly responsive 1b. LOC Questions: Answers BOTH questions correctly. 1c. LOC Commands: Performs both tasks correctly. 2. Best Gaze: Normal 3. Visual: Partial hemianopia 4. Facial Palsy: Normal symmetrical movements 5a. Left Arm: No drift; arm holds 90 (or 45) degrees for full 10 seconds 5b. Right Arm: No drift; arm holds 90 (or 45) degrees for full 10 seconds 6a. Left Leg: No drift; leg holds 30-degree position for full 5 seconds 6b. Right Leg: No drift; leg holds 30-degree position for full 5 seconds 7. Limb Ataxia: Absent 8. Sensory: Normal; no sensory loss 9. Best Language: No aphasia; normal 10. Dysarthria: Normal 11. Extinction and Inattention: No abnormality Total: 1
--- NOTE | 2023-11-25 11:07 | EKG12_ITS ---
Test Reason : SYNCOPE Blood Pressure : / mmHG Vent. Rate : 067 BPM Atrial Rate : 067 BPM P-R Int : 192 ms QRS Dur : 132 ms QT Int : 418 ms P-R-T Axes : 007 -61 105 degrees QTc Int : 441 ms Normal sinus rhythm Left axis deviation Left bundle branch block Abnormal ECG Confirmed by TRACY DUBOSE, DERIC ([id number]), writer editor MUNA SHAIKH ([id number]) on 11/26/2023 9:56:49 AM Referred By: Confirmed By:DERIC MOLINA MD
--- NOTE | 2023-11-25 11:18 | RAD_ITS ---
STUDY: X-RAY CHEST REASON FOR EXAM: Female, 73 years old. Syncope TECHNIQUE: Single AP portable view of the chest. COMPARISON: Comparison is made with prior study dated June 23, 2023. FINDINGS: EKG electrodes are seen. Stable elevation of the right hemidiaphragm. Lungs are clear. There is no demonstrated pleural abnormality. Normal size heart. Normal mediastinum and regina. Normal visualized pulmonary arteries. There is atherosclerotic tortuosity of the aortic arch and descending thoracic aorta. There are diffuse degenerative changes of the visualized thoracic spine. Normal visualized ribs, clavicles, and shoulders. There is no demonstrated abnormality of the visualized soft tissue structures of the upper abdomen. RAD/Chest 1 View (Portable) IMPRESSION: Normal x-ray examination of the chest. Electronically Signed: Gordo Clay MD at 12:09 EDT ,
[2023-11-25 11:25] LABS: Absolute Lymphocyte Count 1.45 X10^3/uL (0.83-4.51); Absolute Neutrophil Count 9.8 X10^3/uL (2.0-7.7); Basophil# 0.11 X10^3/uL; Basophil% 0.9 % (0-1); Eosinophil# 0.91 X10^3/uL; Hematocrit 39.6 % (37-47); Hemoglobin 12.3 g/dL (12.0-15.0); Lymphocyte # 1.45 X10^3/ul (0.83-4.51); Lymphocyte % 11.2 % (19-41); Mean Corp Hgb Conc 31.1 g/dL (32-36); Mean Corpuscular Hgb 30.1 pg (27.0-32.0); Mean Corpuscular Volume 97.1 fL (81-99); Mean Platelet Vol. 12.8 fl (6.2-12.0); Monocyte# 0.65 X10^3/uL; NRBC Flagged by Analyzer 0 % (0-5); Neutrophil # 9.75 X10^3/uL (2.7-7.7); Neutrophil % 75.5 % (47-70); POSITIVE COUNT YES; RBC Distribution Width CV 13.5 % (11.6-14.6); RBC Distribution Width SD 48.5 fl (35.1-43.9); Red Blood Count 4.08 M/mm3 (4.2-5.4); White Blood Count 12.9 K/mm3 (4.4-11.0)
[2023-11-25 12:08] LABS: AST(SGOT) 39 U/L (15-37); Alanine Aminotransfer ALT/SGPT 45 U/L (13-56); Albumin, Serum 3.3 g/dL (3.2-5.0); Alkaline Phosphatase 246 U/L (45-117); Anion Gap 5 (5-15); BUN 23 mg/dL (7-18); BUN/Creat Ratio 21.3 RATIO (10-20); Bilirubin, Direct 0.15 mg/dL (0.00-0.30); Chloride 111 mmol/L (98-107); Creatinine, Serum 1.08 mg/dL (0.55-1.02); EST Glomerular Filtration Rate 53 mL/min (>60); Est Glom Filt Rate - Afr Amer 64 mL/min (>60); Estimated Creatinine Clearance 47.22 ml/min; Globulin 3.7 g/dL (2.2-4.2); Glucose 111 mg/dL (74-106); Magnesium 2.1 mg/dL (1.6-2.6); Potassium 4.8 mmol/L (3.5-5.1); Sodium Level 137 mmol/L (136-145); Troponin-I HS (w/2H Reflex) 12 pg/mL (3.0-54.0)
[2023-11-25 12:09] VITALS: BP 102/66; BP 116/82; BP 122/83; PULSE 64; PULSE 72; PULSE 81
[2023-11-25 12:26] VITALS: BP 111/49; PULSE 76; RESP 18; O2SAT 97
[2023-11-25 12:28] LABS: Mucous, Urine 0 SEEN /hpf (<or=2+); Red Blood Cells-Urine 0 SEEN /hpf (0-5)
[2023-11-25 12:31] LABS: Color, Urine Yellow (Yellow); Glucose, Dipstick Normal (Normal); Ketone-Dipstick 5 mg/dl (Negative); Leukocyte Esterase-Dipstick 500 /ul (Negative); Nitrite-Dipstick Negative (Negative); Occult Blood-Urine Negative /ul (Negative); Protein-Dipstick 30 mg/dl (Negative); Urine Bilirubin Dipstick Negative (Negative); Urine Clarity Sl. Cloudy (Clear); Urine Urobilinogen Normal (Normal); Urine pH 6.5 (5.0 - 8.0)
[2023-11-25 12:38] LABS: Bacteria 1+ /hpf (None Seen); Hyaline Cast 0-5 SEEN /lpf (0-5); Squamous Epithelial Cells - UA 0-5 SEEN /hpf (5-10); White Blood Cells 25-50 SEEN /hpf (0-5)
[2023-11-25 12:54] LABS: Differential Indicated SCAN CRITERIA MET
[2023-11-25 12:56] LABS: Platelet Estimate ADEQUATE (ADEQ)
[2023-11-25 13:20] LABS: Reflex Troponin-HS? (from REC) Y
[2023-11-25 14:00] VITALS: BP 115/61; PULSE 77; RESP 17; O2SAT 97
[2023-11-25 14:27] LABS: Troponin-I HS 13 pg/mL (3.0-54.0)
[2023-11-25 15:21] VITALS: BP 122/57; PULSE 68; RESP 18; TEMP 36.6; O2SAT 98
== END 2023-11-25 15:32 | disposition home or self-care (01) ==
PROVIDERS: Emergency Provider Emergency Medicine; PCP Family Medicine; Visit Provider Emergency Medicine
DX: R55 Syncope and collapse (principal); I69.954 Hemiplegia and hemiparesis following unspecified cerebrovascular disease affecting left non-dominant side; I10 Essential (primary) hypertension; H53.47 Heteronymous bilateral field defects; K21.9 Gastro-esophageal reflux disease without esophagitis; I69.998 Other sequelae following unspecified cerebrovascular disease
CPT/HCPCS: 36415; 71045; 80048; 80076; 81001; 83735; 84484; 85025; 93005; 99284; A4216

== ENCOUNTER → 2023-12-08 | Outpatient (CLI) | payer MEDICARE, SELFPAY ==
--- NOTE | 2023-12-08 13:13 | CT_ITS ---
INDICATION: R CAROTID STENOSIS EXAMINATION: CTA NECK - CTA Neck WO/W Contrast Injection TECHNIQUE: Routine carotid CT angiogram protocol was performed without and with IV contrast. NASCET criteria using the distal ICAs for comparison were used for evaluation of stenoses. 3D reconstructions were reviewed. The protocol utilizes one or more of the following dose reduction techniques: automated exposure control, adjustment of mA and/or kV according to patient size,and/or use of iterative reconstruction technique. IV Contrast dosage and agent: 100 cc of Isovue-370 RADIATION DOSAGE (If Supplied By Facility): CTDIvol = ( 19.97 ) mGy, DLP = ( 535.75 ) mGycm COMPARISON: No relevant prior comparison study available FINDINGS: AORTIC ARCH AND BRANCHES: Cirrhotic calcifications of the aortic arch. Atherosclerotic calcifications of the origin of the right brachiocephalic artery. RIGHT CCA: No occlusion, significant stenosis or dissection. RIGHT ICA: Atherosclerotic calcifications and plaques in the right bulb region and proximal right internal carotid artery causing approximately 35% stenosis. LEFT CCA: No occlusion, significant stenosis or dissection. LEFT ICA: Mild atherosclerotic plaques with less than 50% stenosis at the origin of the left ICA. RIGHT VERTEBRAL ARTERY: No occlusion, significant stenosis or dissection. LEFT VERTEBRAL ARTERY: No occlusion, significant stenosis or dissection. NECK SOFT TISSUES: Unremarkable. LUNG APICES: Clear. 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 Minimal anterolisthesis of C3 over C4. Degenerative changes. CT/CTA Neck W/WO Contrast IMPRESSION: 1. Atherosclerotic changes of the bulb and proximal internal carotid arteries bilaterally with less than 50% stenosis. 2. Patent bilateral vertebral arteries without significant stenosis. Electronically Signed: Jacob Suggs MD at 15:08 EDT ,
== END | disposition home or self-care (01) ==
LOC: CT 13:11
PROVIDERS: PCP Family Medicine; Referring Provider Surgery Vascular Surgery; Visit Provider Surgery Vascular Surgery
DX: I65.21 Occlusion and stenosis of right carotid artery (principal); Z86.73 Personal history of transient ischemic attack (TIA), and cerebral infarction without residual deficits; I10 Essential (primary) hypertension; E78.5 Hyperlipidemia, unspecified
CPT/HCPCS: 70498; Q9967; A4216

== ENCOUNTER 2024-01-01 00:14 | Emergency (ER) | payer MEDICARE, SELFPAY ==
[2024-01-01 00:15] VITALS: BP 100/52; PULSE 81; RESP 14; TEMP 35.9; O2SAT 97; BMI 32.6
[2024-01-01 00:20] VITALS: BP 100/52; PULSE 79; RESP 17; TEMP 35.9; O2SAT 93
--- NOTE | 2024-01-01 00:34 | RAD_ITS ---
EXAM: XR Chest 1 View INDICATION: Female, 73 years old. Weakness TECHNIQUE: Single AP view COMPARISON: 06/23/2023 FINDINGS: DEVICES: None LUNGS: No confluent air space opacity. No concerning pulmonary nodule. No pleural effusion or pneumothorax. MEDIASTINUM: Cardiac and mediastinal silhouettes are within normal limits. No central pulmonary vascular congestion. . SKELETAL STRUCTURES: No acute skeletal abnormality. Mild multilevel degenerative changes in the spine. UPPER ABDOMEN: Unremarkable RAD/Chest 1 View (Portable) IMPRESSION: No acute cardiopulmonary disease Electronically Signed: Arun Hurst MD at 1:25 EDT ,
--- NOTE | 2024-01-01 00:34 | EKG12_ITS ---
Test Reason : DYSRHYTHMIA Blood Pressure : / mmHG Vent. Rate : 080 BPM Atrial Rate : 080 BPM P-R Int : 190 ms QRS Dur : 132 ms QT Int : 402 ms P-R-T Axes : 011 -61 070 degrees QTc Int : 463 ms Normal sinus rhythm Left axis deviation Left bundle branch block Abnormal ECG Confirmed by JEFF DUBOSE, AZALIA ([id number]), television news video editor MUNA SHAIKH ([id number]) on 01/05/2024 2:01:23 PM Referred By: KACI Confirmed By:TAD AGUILAR MD
--- NOTE | 2024-01-01 00:34 | CT_ITS ---
STUDY: CT BRAIN WITHOUT CONTRAST REASON FOR EXAM: Female, 73 years old. Status post syncope TECHNIQUE: Transaxial CT imaging of the brain was performed without administration of intravenous contrast material. Individualized dose optimization techniques were used for this CT. COMPARISON: 07/29/2023 FINDINGS: Normal soft tissue structures. Normal calvarium. There is mild cerebral atrophy with widening of the extra-axial spaces and ventricular dilatation. Interval evolution of geographic hypoattenuation in the right posterior middle cerebral artery distribution. No new denney-white matter differentiation abnormality. There is mild underlying bilateral periventricular and subcortical white matter hypoattenuation which is symmetric in distribution.. Normal basal ganglia and thalami. Normal brainstem. Normal cerebellum. There is no intracranial hemorrhage. There are no findings of an acute ischemic infarction. Normal visualized paranasal sinuses. CT/Brain/Head without Contrast IMPRESSION: 1. Expected interval evolution of right posterior middle cerebral artery distribution are no acute intraperitoneal abnormality. 2. Mild underlying bilateral periventricular and subcortical white matter chronic small vessel disease with age appropriate cerebral atrophy. Electronically Signed: Arun Hurst MD at 1:24 EDT ,
[2024-01-01 00:50] LABS: Absolute Lymphocyte Count 1.54 X10^3/uL (0.83-4.51); Absolute Neutrophil Count 7.7 X10^3/uL (2.0-7.7); Eosinophil# 0.07 X10^3/uL; Eosinophils% 0.7 % (0-5); Hematocrit 38.5 % (37-47); Hemoglobin 12.4 g/dL (12.0-15.0); Lymphocyte # 1.54 X10^3/ul (0.83-4.51); Lymphocyte % 15.3 % (19-41); Mean Corp Hgb Conc 32.2 g/dL (32-36); Mean Corpuscular Hgb 30.1 pg (27.0-32.0); Mean Corpuscular Volume 93.4 fL (81-99); Mean Platelet Vol. 11.8 fl (6.2-12.0); Monocyte# 0.63 X10^3/uL; Monocyte% 6.3 % (0-10); NRBC Flagged by Analyzer 0 % (0-5); Neutrophil % 76.4 % (47-70); Platelet Count 290 K/mm3 (150-450); RBC Distribution Width CV 13.2 % (11.6-14.6); RBC Distribution Width SD 45.4 fl (35.1-43.9); Red Blood Count 4.12 M/mm3 (4.2-5.4); White Blood Count 10.1 K/mm3 (4.4-11.0)
[2024-01-01 01:06] LABS: Anion Gap 4 (5-15); BUN 20 mg/dL (7-18); Calcium,Total 10.1 mg/dL (8.5-10.1); Chloride 108 mmol/L (98-107); Creatinine, Serum 1.25 mg/dL (0.55-1.02); EST Glomerular Filtration Rate 44 mL/min (>60); Est Glom Filt Rate - Afr Amer 54 mL/min (>60); Estimated Creatinine Clearance 41.34 ml/min; Glucose 159 mg/dL (74-106); Magnesium 2.1 mg/dL (1.6-2.6); Potassium 4.7 mmol/L (3.5-5.1); Sodium Level 135 mmol/L (136-145); Troponin-I HS 16 pg/mL (3.0-54.0)
[2024-01-01 01:14] VITALS: BP 119/50; PULSE 80; RESP 21; O2SAT 95
[2024-01-01] MEDS: 0.9% Normal Saline (500mL Bag) 500 ML 999 ML IV (01:21)
[2024-01-01 02:00] VITALS: BP 118/56; PULSE 75; RESP 16; O2SAT 96
[2024-01-01 02:35] LABS: Troponin-I HS 16 pg/mL (3.0-54.0)
[2024-01-01 02:38] LABS: Mucous, Urine 0 SEEN /hpf (<or=2+); Red Blood Cells-Urine 0 SEEN /hpf (0-5); Squamous Epithelial Cells - UA 0 SEEN /hpf (5-10)
[2024-01-01 02:43] LABS: Color, Urine Yellow (Yellow); Glucose, Dipstick Normal (Normal); Ketone-Dipstick 5 mg/dl (Negative); Leukocyte Esterase-Dipstick 500 /ul (Negative); Nitrite-Dipstick Negative (Negative); Occult Blood-Urine 50 /ul (Negative); Protein-Dipstick 100 mg/dl (Negative); Specific Gravity, Urine 1.015 (1.002-1.030); Urine Bilirubin Dipstick Negative (Negative); Urine Clarity Cloudy (Clear); Urine Urobilinogen Normal (Normal)
[2024-01-01 03:00] VITALS: BP 109/91; PULSE 85; RESP 16; O2SAT 95
[2024-01-01 03:01] LABS: Bacteria 1+ /hpf (None Seen); Hyaline Cast 0-5 SEEN /lpf (0-5); White Blood Cells 50-100 SEEN /hpf (0-5)
[2024-01-01] MEDS: Smz/Tmp Ds Tablet 1 TABLET PO (03:29)
--- NOTE | 2024-01-01 03:41 | EX.ED.DYSGE1 ---
HPI History of Present Illness Chief Complaint: Weakness Informant: patient, family and EMS Narrative Narrative: Patient is a 73-year-old female with past medical history of Takotsubo cardiomyopathy as well as depression and hypertension and previous CVA. Patient and spouse report that she went to the bathroom this evening and then while doing so seemed to slump over and passed out. states that there is no seizure-like activity and he states that he was calling her name and that she was just minimally responsive. The patient states that she remembers this entire event. She denies having palpitations or deviations in her heart rate during the event. states because of her past history of heart issues as well as previous stroke he was concerned and called EMS. EMS states when they arrived they confirmed that patient was awake but slow to respond and with concern that her near syncopal event could be related to a acute coronary issue or stroke she was brought in for evaluation [facility] Medical History Coronary artery disease STEMI (ST elevation myocardial infarction) Sleep apnea Stroke/cerebrovascular accident Takotsubo cardiomyopathy Uncontrolled hypertension Eosinophilia, unspecified Osteoporosis Hemianopia of left eye Acute left hemiparesis Glaucoma Obesity (BMI 30.0-34.9) Osteoarthritis GERD (gastroesophageal reflux disease) Depression HTN (hypertension) Subarachnoid hemorrhage Ischemic cerebrovascular accident (CVA) Ulnar neuropathy at elbow of left upper extremity Tendonitis Left posterior interosseous nerve syndrome Gastric ulcer Left hand weakness History of breast cancer Major depressive disorder, recurrent episode, moderate Lesion of right radial nerve Home Medications ?Medication ?Instructions ?Recorded ?Last Taken ?Type latanoprost 0.005 % eye drops [address] [facility] Eye drops 08/10/14 07/28/23 History letrozole 2.5 mg tablet 2.5 mg PO DAILY Breast cancer 08/29/20 07/29/23 History omeprazole 20 mg capsule,delayed 20 mg PO DAILY GERD 08/30/20 07/29/23 History release alendronate 70 mg tablet 70 mg PO CHONG [facility] 07/06/23 Unknown History polyethylene glycol 3350 17 17 g PO DAILY constipation 07/26/23 Unknown History gram/dose oral powder (Miralax) aspirin 81 mg tablet,delayed 81 mg PO BREAKFAST [facility] #0 07/29/23 07/29/23 Rx release tabs nitroglycerin 0.4 mg sublingual 0.4 mg sublingual Q5M PRN 07/29/23 Unknown Rx tablet Cardiac/Chest Pain #0 tabs Petrolatum 33% [Eucerin Eqivalent] 1 applic topical QHS #1 applic 08/21/23 Unknown Rx acetaminophen 325 mg tablet 650 mg (2 x 325 mg) PO Q4H PRN PRN 08/21/23 Unknown Rx Pain 1-10 Or Fever #1 TAB bisacodyl 10 mg rectal suppository 10 mg MA X1 PRN Constipation #1 ea 08/21/23 Unknown Rx diclofenac sodium 1 % topical gel 2 g topical BID #100 grams 08/21/23 Unknown Rx (Voltaren Arthritis Pain) gabapentin 100 mg capsule 100 mg PO 2100 #1 cap 08/21/23 Unknown Rx magnesium hydroxide 400 mg/5 mL 30 ml PO X1 PRN Constipation #30 mL 08/21/23 Unknown Rx oral suspension mirtazapine 15 mg tablet 37.5 mg (2.5 x 15 mg) PO QHS #2 08/21/23 Unknown Rx tabs sennosides 8.6 mg-docusate sodium 2 tab PO BID #1 TAB 08/21/23 Unknown Rx 50 mg tablet (Stool Softener-Stimulant Laxative) amlodipine 5 mg tablet 5 mg PO DAILY #60 tabs 09/16/23 Unknown Rx atorvastatin 40 mg tablet 40 mg PO QHS cholesterol #90 tabs 09/16/23 Unknown Rx carvedilol 12.5 mg tablet 18.75 mg (1.5 x 12.5 mg) PO BIDCM 09/16/23 Unknown Rx #90 tabs cephalexin 500 mg capsule 500 mg PO Q12 #14 CAPSULES 11/25/23 Unknown Rx ascorbic acid (vitamin C) 500 mg 500 mg PO BID 01/01/24 Unknown History tablet (Vitamin C) calcium citrate 200 mg 1 tab PO BID 01/01/24 Unknown History calcium-vitamin D3 6.25 mcg (250 unit) tablet losartan 50 mg tablet 50 mg PO .COMPLEX blood pressure 01/01/24 Unknown History magnesium 200 mg tablet 200 mg PO DAILY 01/01/24 Unknown History meloxicam 15 mg tablet 15 mg PO DAILY 01/01/24 Unknown History mirtazapine 15 mg disintegrating 37.5 mg PO QHS 01/01/24 Unknown History tablet sulfamethoxazole 800 1 tab PO BID 7 days #14 tabs 01/01/24 Unknown Rx mg-trimethoprim 160 mg tablet (Bactrim DS) Allergy/AdvReac Type Severity Reaction Status Date / Time Penicillins (PCN) Allergy Severe Anaphylaxis Verified 12/18/23 13:20 cariprazine (From Vraylar) AdvReac Severe Delirium/severe Verified 12/18/23 13:20 agitation quetiapine (From Seroquel) AdvReac Severe Delirium/severe Verified 12/18/23 13:20 agitation levetiracetam (From Keppra) AdvReac Other Verified 12/18/23 13:20 Family History Aunt Cancer Sister Cancer Surgical History History of right mastectomy History of lumpectomy of right breast Social History household members: spouse housing: other details: One-story house with a basement. Laundry is upstairs number of children: 1 current occupational status: retired Smoking Status: Never smoker Electronic Cigarette Use: not used second hand exposure: No alcohol intake: current alcohol intake frequency: holidays/special occasions only substance use type: does not use ROS ROS ED Constitutional Constitutional ED: Reports other Details: Positive weakness ; Denies chills or fever(s) Eyes Eyes: Denies change in vision ENT ENT ED: Denies sore throat Cardiovascular Cardiovascular: Reports chest pain; Denies palpitations or racing heartbeat Respiratory/Chest Respiratory/Chest: Denies cough or dyspnea Gastrointestinal Gastrointestinal: Reports nausea; Denies abdominal pain, diarrhea or vomiting Genitourinary Genitourinary ED: Denies dysuria Musculoskeletal Musculoskeletal: Denies myalgias Integumentary Denies rash Neurologic Neurologic: Reports other Details: Positive syncope ; Denies headache(s) Psychiatric Psychiatric: Reports depression Hematologic/Lymphatic Hematologic/Lymphatic: Denies easy bleeding or easy bruising EXAM Physical Exam Const Vital Signs: 01/01/24 00:15 01/01/24 00:20 01/01/24 00:23 Temperature 96.6 F L 96.6 F L Temperature Source Tympanic Tympanic Pulse Rate 81 79 Respiratory Rate 14 17 Respiratory Effort Normal Respiratory Pattern Normal Blood Pressure 100/52 L 100/52 L Blood Pressure Mean 68 68 Pulse Ox 97 93 Oxygen Delivery Method Room Air Room Air 01/01/24 01:14 01/01/24 02:00 01/01/24 03:00 Temperature Temperature Source Pulse Rate 80 75 85 Respiratory Rate 21 H 16 16 Respiratory Effort Respiratory Pattern Blood Pressure 119/50 L 118/56 L 109/91 H Blood Pressure Mean 73 76 97 Pulse Ox 95 96 95 Oxygen Delivery Method Room Air Room Air 01/01/24 03:49 Temperature 97.6 F L Temperature Source Pulse Rate 80 Respiratory Rate 18 Respiratory Effort Respiratory Pattern Blood Pressure 111/55 L Blood Pressure Mean 73 Pulse Ox 95 Oxygen Delivery Method Positive well nourished and well developed General Appearance ED: well developed; Negative for pallor HEENT HEENT Narrative: Normocephalic atraumatic No tongue or cheek biting noted No findings of infection in the posterior pharynx Eyes PERRL and EOMs intact bilaterally General Eye ED: Negative for pale conjunctiva or scleral icterus Neck supple Neck Narrative: No nuchal rigidity or meningeal signs Chest Wall palpation of chest normal Resp normal respiratory effort and clear to auscultation bilaterally Resp Narrative: Breath sounds are slight diminished throughout but overall clear to auscultation without signs of respiratory distress Cardio regular rate and regular rhythm Rate: other Other Details: Regular rate and rhythm Radial and carotid pulses are equal and symmetric GI normal to inspection, nondistended, normoactive bowel sounds, non-tender, non-distended and no masses GI Narrative: No voluntary guarding or rigidity or pulsatile mass Auscultation: normoactive bowel sounds Palpation: soft Extremity normal to inspection Extremity Narrative: No asymmetric edema no pitting edema negative Homans' sign bilaterally Neuro oriented x3, CN's II-XII intact bilaterally and no sensory deficits noted Neuro Narrative: GCS of 15 No pronator drift or dysmetria or truncal ataxia NIH stroke scale score of 0 Sensorium / Orientation: alert Motor Exam: strength 5/5 throughout Psych Psych Narrative: Patient has a flat affect Skin no rashes or lesions noted Skin Narrative: Skin turgor is slightly increased General Skin Exam: Negative for jaundice or pallor MDM MDM MDM Narrative Medical decision making narrative: Patient arrived to ER with stable vitals and was awake and alert with NIH stroke scale score of 0. Her history and exam is most consistent with a syncopal/near syncopal event and instead of an acute CVA or acute coronary syndrome. However based on her previous history of these there is concern that she had an atypical presentation so a EKG with basic cardiac workup was performed. Head CT was also obtained because of her history of acute CVA. Head CT revealed no acute findings and lab work showed a normal troponin at 16 initially and there was no change at the 2-hour value going against acute coronary syndrome. Patient also was kept on the shelter monitor and there was no cardiac dysrhythmia to suggest this as a cause of her symptoms or syncopal event. Patient blood work also revealed no acute signs of infection or signs of acute kidney injury or electrolyte abnormality. Because the patient also endorses generalized weakness a urine sample was obtained. This did show changes consistent with infection with 50-100 white blood cells and +1 bacteria without contamination. Therefore the urine was placed for culture but as patient is not showing symptoms consistent with urosepsis or acute kidney injury I do not feel there is need for IV antibiotic. After patient was hydrated in the ER and her workup complete she was ambulated and did so with a steady gait and normal strength. Therefore at this time it appears patient's symptoms are related to a syncopal event but not acute coronary syndrome or Takotsubo cardiomyopathy or acute kidney injury or stroke. The urine is consistent with infection but this would correlate with her report of generalized weakness but she is not having KELSI or urosepsis so she can be treated as an outpatient and discharged home History & Record Review Discussion w/independent historian: Patient and Family Lab Data Attestation: I reviewed the patient's lab results. Labs: Laboratory Results - last 24 hr 01/01/24 01/01/24 01/01/24 00:27 02:10 02:30 WBC 10.1 RBC 4.12 L Hgb 12.4 Hct 38.5 MCV 93.4 MCH 30.1 MCHC 32.2 RDW Std Deviation 45.4 H RDW Coeff of Kenisha 13.2 Plt Count 290 MPV 11.8 Immature Gran % (Auto) 0.300 Neut % (Auto) 76.4 H Lymph % (Auto) 15.3 L Vance % (Auto) 6.3 Eos % (Auto) 0.7 Baso % (Auto) 1.0 Absolute Neuts (auto) 7.7 Absolute Lymphs (auto) 1.54 Nucleated RBC % 0 Sodium 135 L Potassium 4.7 Chloride 108 H Carbon Dioxide 23.0 Anion Gap 4 L BUN 20 H Creatinine 1.25 H Estim Creat Clear Calc 41.34 Est GFR (MDRD) Af Amer 54 L Est GFR (MDRD) Non-Af 44 L BUN/Creatinine Ratio 16.0 Glucose 159 H Calcium 10.1 Magnesium 2.1 Troponin I High Sens 16 16 Urine Color Yellow Urine Clarity Cloudy Urine pH 6.0 Ur Specific Hoagland 1.015 Urine Protein 100 H Urine Glucose (UA) Normal Urine Ketones 5 H Urine Occult Blood 50 H Urine Nitrite Negative Urine Bilirubin Negative Urine Urobilinogen Normal Ur Leukocyte Esterase 500 H Urine RBC 0 SEEN Urine WBC 50-100 SEEN Ur Squamous Epith Cells 0 SEEN Urine Bacteria 1+ Hyaline Casts 0-5 SEEN Urine Mucus 0 SEEN Radiography Diagnostic Testing: Clinical Impression(s) from Imaging Studies Brain CT 01/01/24 00:34 IMPRESSION: 1. Expected interval evolution of right posterior middle cerebral artery distribution are no acute intraperitoneal abnormality. 2. Mild underlying bilateral periventricular and subcortical white matter chronic small vessel disease with age appropriate cerebral atrophy. Electronically Signed: Arun Hurst MD at 1:24 EDT , Chest X-Ray 01/01/24 00:34 IMPRESSION: No acute cardiopulmonary disease Electronically Signed: Arun Hurst MD at 1:25 EDT , Chest x-ray as interpreted by the emergency medicine physician reveals no acute infiltrate pneumothorax pleural effusion or widening the mediastinum Discharge Plan Triage Chief Complaint: Weakness ED Provider: Jacinto Abbasi Dx/Rx/DC Orders Clinical Impression: Syncope, UTI (urinary tract infection), Takotsubo cardiomyopathy, HTN (hypertension) Instructions: Urinary Tract Infections in Women, Causes of Syncope Prescriptions: New sulfamethoxazole-trimethoprim [Bactrim DS] 800-160 mg tablet 1 tab PO BID 7 Days Qty: 14 0RF No Action letrozole 2.5 mg tablet 2.5 mg PO DAILY omeprazole 20 mg capsule,delayed release(DR/EC) 20 mg PO DAILY latanoprost 1 DROP bottle 1 drp EACH EYE QHS Patient Comments: GLAUCOMA alendronate 70 mg tablet 70 mg PO CHONG polyethylene glycol 3350 [Miralax] 17 gram/dose powder 17 g PO DAILY aspirin 81 mg Tablet,Delayed Release (Dr/Ec) 81 mg PO BREAKFAST Qty: 0 0RF nitroglycerin 0.4 mg Tablet, Sublingual 0.4 mg sublingual Q5M PRN (Reason: Cardiac/Chest Pain) Qty: 0 0RF acetaminophen 325 mg Tablet 650 mg PO Q4H PRN PRN (Reason: Pain 1-10 Or Fever) Qty: 1 0RF magnesium hydroxide 400 mg/5 mL Suspension 30 ml PO X1 PRN (Reason: Constipation) Qty: 30 0RF bisacodyl 10 mg Suppository 10 mg MA X1 PRN (Reason: Constipation) Qty: 1 0RF mirtazapine 15 mg Tablet 37.5 mg PO QHS Qty: 2 0RF Rx Instructions: 1 and 1/2 tabs Q HS gabapentin 100 mg Capsule 100 mg PO 2100 Qty: 1 0RF Petrolatum 33% [Eucerin Eqivalent] 1 applic topical QHS Qty: 1 0RF Rx Instructions: apply from the knees to the toes Q HS sennosides-docusate sodium [Stool Softener-Stimulant Laxat] 8.6-50 mg Tablet 2 tab PO BID Qty: 1 0RF diclofenac sodium [Voltaren Arthritis Pain] 1 % gel 2 g topical BID Qty: 100 0RF Rx Instructions: apply to the anterior shins and the feet BID cephalexin 500 mg capsule 500 mg PO Q12 Qty: 14 0RF ascorbic acid (vitamin C) [Vitamin C] 500 mg tablet 500 mg PO BID magnesium 200 mg tablet 200 mg PO DAILY losartan 50 mg tablet 50 mg PO .COMPLEX Rx Instructions: 50 mg orally twice daily meloxicam 15 mg tablet 15 mg PO DAILY mirtazapine 15 mg tablet,disintegrating 37.5 mg PO QHS calcium citrate-vitamin D3 200 mg-6.25 mcg (250 unit) tablet 1 tab PO BID amlodipine 5 mg tablet 5 mg PO DAILY Qty: 60 1RF atorvastatin 40 mg tablet 40 mg PO QHS Qty: 90 3RF carvedilol 12.5 mg tablet 18.75 mg PO BIDCM Qty: 90 1RF Primary Care Provider: Bo Nicholas Referrals: Bo Nicholas MD [Primary Care Provider] - Activity Restrictions/Additional Instructions: Please keep yourself well-hydrated and take your antibiotic as directed to resolve your urinary tract infection. If your symptoms return or you have any further concerns please return for repeat evaluation Print Language: Cape Verdean Disposition Disposition: Home, Self Care Discharge Date/Time: 01/01/24 03:52
[2024-01-01 03:49] VITALS: BP 111/55; PULSE 80; RESP 18; TEMP 36.4; O2SAT 95
== END 2024-01-01 03:52 | disposition home or self-care (01) ==
PROVIDERS: Emergency Provider Emergency Medicine; PCP Family Medicine; Visit Provider Emergency Medicine
DX: R55 Syncope and collapse (principal); N39.0 Urinary tract infection, site not specified; R53.1 Weakness; I51.81 Takotsubo syndrome; I25.10 Atherosclerotic heart disease of native coronary artery without angina pectoris; I10 Essential (primary) hypertension; Z86.73 Personal history of transient ischemic attack (TIA), and cerebral infarction without residual deficits; K21.9 Gastro-esophageal reflux disease without esophagitis; Z79.899 Other long term (current) drug therapy; F32.A Depression, unspecified
CPT/HCPCS: 70450; 71045; 80048; 81001; 83735; 84484; 85025; 87086; 87088; 93005; 96360; 99283; A4216

== ENCOUNTER 2024-02-10 13:00 | Outpatient (RCR) | payer MEDICARE, SELFPAY ==
--- NOTE | 2023-10-27 14:02 | HP.PTEVAL_ITS ---
Patient's Visit Information Visit Information Visit Information: GILBERTO CAMPBELL is a 73 year old F referred to Physical Therapy by Dr. Bo Nicholas MD with a diagnosis of CVA Jun 2023. Date of Evaluation: 10/27/23 Physical Therapist: Monica Escalante DPT Visit Plan Frequency: 2x /Week Duration: 4 Weeks Plan: Focus on stairs recip and non recip with single HR, gait with LRD on even and uneven surfaces, balance. Pt has extensive HEP from home health Subjective Subjective: She is reports having additional PT/OT to tack on from her CVA in June of 2023- at home. It was just a couple of weeks ago. She had PT- she is doing strength and balance- she is continuing them. She continues to see improvement in the legs but not as much as the hand. Prior to the CVA she was not using a AD- fully I prior. She is using the FWW at all times. She is not taking taking risks. She can get in/out of the shower- she has a walk in shower with a seat- and her helps her dress. She has left sided weakness. She has not had any falls. She has no pain in her legs. She has 3 stairs to enter from the garage (2 handrails) and a finished basement but she has not tried them because there are 11 stairs - with 1 handrail. Bedroom/Bathroom are on a single floor. She is able to do her own bed mobility. She does have some N/T in the left LE. She feels that she is 50% back to baseline mobility. Her 35- 40% back to normal. PMHx/Meds: no change since listed Objective Objective: Posture: forward head, rounded shoulders- can correct but does not maintain Observation- pt does not always remember her left hand with mobility, needs cues for safety for hand placement with transfers Gait: valgus at the knees- does have decreased stance on the left LE- decreased heel/toe pattern- FWW- good rocael HR/TR: able with UE A Balance: see below Stairs: asc/desc 8 non recip with CGA- bilateral HR ROM: WFL Strength: Core: fair minus, Left LE: Hip: 4/5 Knee: 4+/5 Ankle: 4+/5 Right: 4+/5, Knee: 4+/5 Ankle: 5/5 Flex: HS: moderate Gastroc: moderate Sensation: WNL to gross touch bilateral Balance/Special Test Scores Functional Gait Assessment Score: 11 % Disability: 63.3400 CATSIB Score (Max score 120 seconds): 80 Lower Extremity Functional Score: 35 Goals Goal 1:: Patient will be I with HEP and progression Goal Time Frame: 4-6 Weeks Goal 2:: Patient will ascend/desc stairs safely with one handrail independently. Goal Time Frame: 4-6 Weeks Goal 3:: Patient will ambulate >150 feet on uneven surface with LRD Goal Time Frame: 4-6 Weeks Goal 4:: Patient will report 80% improvment Goal Time Frame: 4-6 Weeks Rehabilitation Potential Physical Therapy Diagnosis: Patient is s/p CVA in Jun 2023- she has decreased LE strength, flex, proprioception and muscular endurance leading to decreased balance, gait and participation in ADL's. Rehabilitation Potential: Fair Anticipated Interventions Patient/Client Instruction: Educate patient on: Benefits of Fitness Program Therapeutic Exercise to Include: Strength training, Endurance training, Balance training, Coordination, Agility training, Body mechanics, Postural training, Flexibilty training, Gait and locomotor training, Neuromotor development, Passi ve ROM, Dynamic Lumbar Stabilization and Scapular Strength/Stabilization For the Purpose of:: To improve muscle performance and motor function Text: Thank you for the opportunity to evaluate your patient. For Medicare and Medicare HMO plans, please review the plan of care and approve it. It will need to be FAXED BACK to us at [phone] for Medicare purposes. For Medicare only, by signing this I certify the plan of care. Please let me know if there are questions or concerns regarding this plan of care. Physician Signature: Date:
--- NOTE | 2023-10-27 14:27 | HP.OTEVAL ---
Patient's Visit Information Visit Information Visit Information: GILBERTO CAMPBELL is a 73 year old F, referred to Occupational Therapy by Dr. Bo Nicholas MD, with a diagnosis of CVA. Date of Evaluation: 10/27/23 Occupational Therapist: Leona Solis Subjective Subjective: This 73 year old female referred to OT due to CVA Jun 232023. pt seen for therapy in [facility] in [place] then home therapy for several weeks. Stroke affected L hand pt is R hand dominant. pt does have changes to L visual field reporting missing a lot in L lower quadrant. pt does report slight neglect of L side during tasks. Pt states she can no longer use her cell phone. pt does report need for assistance with dressing at this time. pt repors difficulty with fastners. pt no longer completes her IADL tasks has taken over. 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 pt is no longer working however does enjoy this as hobby. Objective Objective/Observation: pt arrives this date with L side impairment decreased motor control ROM Shoulder: wfl Elbow: wfl Forearm: wfl Wrist: wfl CMC: wfl MP: wfl IP: wfl Radial Abduction: wfl Palmar Abduction: wfl Opposition: wfl MP: wfl PIP: wfl DIP: wfl Strength Shoulder: R 16 pounds L 9.7 pounds Elbow: R 32 pounds L 28 pounds Life Sciences Teacher: R 38 pounds L 18 pounds Lateral Pinch: R 5 pounds L 2 pounds Tripod Pinch: R 5 pounds L 0 pounds Sensation Sensation Comments: L ahdn digits 5.88 semmes - carmen assessment indicating loss of protective sensation unable to feel any on wrist Nine Hole Peg Right: 29 sec Left: 1 min 16 sec In-Hand Manipulation Finger to Palm Translation: Moderate - Left Palm to Finger Translation: Moderate - Left Quick DASH-Disab of Arm,Shoulder& Hand Quick DASH Score: 61.3625 Goals Goal:: pt will increase L shoulder flexion strength to 12 pounds or more for increased I in self care/ IADL tasks pt will increase L door and arrival attendant strength to 25 pounds or more for increased I in self care/IADL tasks pt will increase L lateral pinch strength to 4-5 pounds for increased I in self care/IADL tasks pt will increase L tripod pinch strength to 4-5 pounds for increased I in self care/IADL tasks Goal:: pt will improve L hand 9 hole peg assessment completing in 50 sec or less for increased I in self care and IADL tasks pt will demonstrate the ability to button 5/5 buttons of various size for increased I in self care tasks Goal:: pt will improve L hand dorsal hand sensation semmes carmen score 4.31 or less for increased skin integrity and decreased risk for downing Goal:: pt will demonstrate the ability to attend to 100% stimulus on L side throughout session for I in self care tasks and IADL tasks by d/c pt will demonstrate improved dysmmetria of L hand finger to nose 5/5 trials by discharge Goal:: per report pt will complete all self care dressing tasks with UT in order to return to PLOF Goal:: pt will improve quick dash score to 30 or less for improved functional use of L hand during all functional tasks Rehabilitation Rehabilitation Potential: Good Anticipated Interventions Anticipated Interventions: A/AAROM/PROM, Strengthening, Sensory Retraining, Modalities, Fine Motor Coord/Pal, Neuro Reeducation, Visual/Perceptual Skills, ADL Training, Education re assistive Equipment, Education re Diagnosis and Home Program Visit Plan Frequency: 2x /Week Duration: 4 Weeks General Plan: strengthening coordination dysmetria L sided visual neglect TEXT: Thank you for the opportunity to evaluate your patient. For Medicare and Medicare HMO plans, please review the plan of care and approve it. It will need to be FAXED BACK to us at [phone] for Medicare purposes. Please let me know if there are questions or concerns regarding this plan of care. Physician Signature: Date:
--- NOTE | 2023-12-01 15:40 | HP.PTREVAL ---
Re-Evaluation Intro: Dr. Bo Nicholas MD, It has been my pleasure to treat GILBERTO CAMPBELL over the last 9 visits for CVA Jun 2023. Please see the progress note below for an update on the physical therapy plan of care! Subjective Subjective: Patient reports that last week- she had a fainting spell- her called . They checked her out and sent her home thinking it was just a blood pressure drop. She would like to get to the point of being a free walker. She does feel that she has been neglecting her left side more. Its been more tingling and her left leg is more affected since the stroke. Objective Objective/Function: Posture: forward head, rounded shoulders- can correct but does not maintain Observation- pt does not always remember her left hand with mobility, needs cues for safety for hand placement with transfers Gait: valgus at the knees- does have decreased stance on the left LE- decreased heel/toe pattern- FWW- good rocael HR/TR: able with UE A Balance: see below Stairs: asc/desc 8 non recip with CGA- bilateral HR ROM: WFL Strength: Core: fair minus, Left LE: Hip: 4/5 Knee: 4+/5 Ankle: 4+/5 Right: 4+/5, Knee: 4+/5 Ankle: 5/5 Flex: HS: moderate Gastroc: moderate Sensation: WNL to gross touch bilateral Plan Plan Plan: 12/01/23: Continue 2x a week for 4 weeks with functional mobility. IE: Focus on stairs recip and non recip with single HR, gait with LRD on even and uneven surfaces, balance. Pt has extensive HEP from home health Balance/Gait/Functional tests Balance/Special Test Scores Functional Gait Assessment Score: 14 % Disability: 53.3400 CATSIB Score (Max score 120 seconds): 80 Lower Extremity Functional Score: 35 Tug Test: 20-30sec.=variable mobility 30 Second Chair Rise Test Seconds: 4 Goals Goals Goal 1:: Patient will be I with HEP and progression Goal Time Frame: 4-6 Weeks Goal Progress: Progressing Goal 2:: Patient will ascend/desc stairs safely with one handrail independently. Goal Time Frame: 4-6 Weeks Goal Progress: Progressing Goal 3:: Patient will ambulate >150 feet on uneven surface with LRD Goal Time Frame: 4-6 Weeks Goal Progress: Progressing Goal 4:: Patient will report 80% improvment Goal Time Frame: 4-6 Weeks Goal Progress: Goal Met Anticipated Interventions Anticipated Interventions Patient/Client Instruction: Educate patient on: Benefits of Fitness Program Therapeutic Exercise to Include: Strength training, Endurance training, Balance training, Coordination, Agility training, Body mechanics, Postural training, Flexibilty training, Gait and locomotor training, Neuromotor development, Passive ROM, Dynamic Lumbar Stabilization and Scapular Strength/Stabilization For the Purpose of:: To improve muscle performance and motor function Re-Evaluation Ending Re-evaluation ending: Please do not hesitate to contact me at [phone] by phone or if you have questions or concerns regarding this new plan of care! Sincerely, REYNA SilvestreT
--- NOTE | 2023-12-08 09:40 | HP.OTREVAL ---
Re-Evaluation Intro: Dr. Bo Nicholas MD, It has been my pleasure to treat GILBERTO CAMPBELL over the last 10 visits for CVA. Please see the progress note below for an update on the occupational therapy plan of care! Subjective Subjective: arrives doing well however fainted last week on thursday Objective Objective/Function: L hand 22 pounds from 18 pounds lateral 3 from 2 pounds tripod 7 pounds from 0 pounds 9 hole peg L hand 1 min from 1 min and 16 sec semmes now 4.74 from 5.88 Plan Plan Frequency: 2x /Week Duration: 4 Weeks Visits in this POC: (No Limit- Med Evelyn) 4 weeks (2x week) Plan: strengthening FMC coordination attention to L side sensory re training Goals Goals Goal:: pt will increase L shoulder flexion strength to 12 pounds or more for increased I in self care/ IADL tasks now 12.6 new goal: pt will increase L shoulder flexion strength to 14 pounds or more for increased I in self care/IADL tasks 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 to 25 pounds or more for increased I in self care/IADL tasks now 22 pounds progressing pt will increase L lateral pinch strength to 4-5 pounds for increased I in self care/IADL tasks now 3 pounds progressing pt will increase L tripod pinch strength to 4-5 pounds for increased I in self care/IADL tasks now 7 pounds goal met Goal:: pt will improve L hand 9 hole peg assessment completing in 50 sec or less for increased I in self care and IADL tasks now 1 min progressing pt will demonstrate the ability to button 5/5 buttons of various size for increased I in self care tasks ongoing Goal:: pt will improve L hand dorsal hand sensation semmes carmen score 4.31 or less for increased skin integrity and decreased risk for downing now 4.7 prorgerssing Goal:: pt will demonstrate the ability to attend to 100% stimulus on L side throughout session for I in self care tasks and IADL tasks by d/c still requires cues progressing pt will demonstrate improved dysmmetria of L hand finger to nose 5/5 trials by discharge / ongoing progressing Goal:: per report pt will complete all self care dressing tasks with DE in order to return to PLOF prorgessing however requires occ assistance Goal:: pt will improve quick dash score to 30 or less for improved functional use of L hand during all functional tasks Anticipated Interventions Anticipated Interventions Anticipated Interventions: A/AAROM/PROM, Strengthening, Sensory Retraining, Modalities, Fine Motor Coord/Pal, Neuro Reeducation, Visual/Perceptual Skills, ADL Training, Education re assistive Equipment, Education re Diagnosis and Home Program Re-Evaluation Ending Re-evaluation ending: Please do not hesitate to contact me at [phone] by phone or if you have questions or concerns regarding this new plan of care! Sincerely, Leona Solis
--- NOTE | 2024-01-07 13:21 | HP.PTREVAL ---
Re-Evaluation Intro: Dr. Bo Nicholas MD, It has been my pleasure to treat GILBERTO CAMPBELL over the last 17 visits for CVA Jun 2023. Please see the progress note below for an update on the physical therapy plan of care! Subjective Subjective: Patient reports that she was in the hospital and they changed her blood pressure medication and they are talking about doing the carotid surgery. She is using the walker at home- she is using the furniture to walk from one piece to the next. She has not had any falls. She has been able to get up/down out of her chair better too. She is able to get up/down the stairs well. The suburban was an issue and now they got some steps so she can get in/out better. She is the most nervous getting in/out of the shower due to it being wet. Objective Objective/Function: Posture: forward head, rounded shoulders- can correct but does not maintain Observation- pt does not always remember her left hand with mobility, needs cues for safety for hand placement with transfers Gait: improving- decreased use of FWW- valgus at the knees- veers to the left- mild cueing HR/TR: able with UE A Balance: see below Stairs: asc/desc 8 recip with SBA- bilateral HR ROM: WFL Strength: Core: fair minus, Left LE: Hip: 4+/5 Knee: 4+/5 Ankle: 4+/5 Right: 4+/5, Knee: 4+/5 Ankle: 5/5 Flex: HS: moderate Gastroc: moderate Sensation: WNL to gross touch bilateral Plan Plan Plan: 01/07/24: Continue 2x a week for 4 weeks- focus on gait and functional mobility 12/01/23: Continue 2x a week for 4 weeks with functional mobility. IE: Focus on stairs recip and non recip with single HR, gait with LRD on even and uneven surfaces, balance. Balance/Gait/Functional tests Balance/Special Test Scores Functional Gait Assessment Score: 16 % Disability: 46.6700 CATSIB Score (Max score 120 seconds): 80 Lower Extremity Functional Score: 35 TUG Test Time Seconds: 24 Tug Test: 20-30sec.=variable mobility 30 Second Chair Rise Test Seconds: 4 Goals Goals Goal 1:: Patient will be I with HEP and progression Goal Time Frame: 4-6 Weeks Goal Progress: Progressing Goal 2:: Patient will ascend/desc stairs safely with one handrail independently. Goal Time Frame: 4-6 Weeks Goal Progress: Progressing Goal 3:: Patient will ambulate >150 feet on uneven surface with LRD Goal Time Frame: 4-6 Weeks Goal Progress: Progressing Goal 4:: Patient will report 80% improvment Goal Time Frame: 4-6 Weeks Goal Progress: Goal Met Anticipated Interventions Anticipated Interventions Patient/Client Instruction: Educate patient on: Benefits of Fitness Program Therapeutic Exercise to Include: Strength training, Endurance training, Balance training, Coordination, Agility training, Body mechanics, Postural training, Flexibilty training, Gait and locomotor training, Neuromotor development, Passive ROM, Dynamic Lumbar Stabilization and Scapular Strength/Stabilization For the Purpose of:: To improve muscle performance and motor function Re-Evaluation Ending Re-evaluation ending: Please do not hesitate to contact me at [phone] by phone or if you have questions or concerns regarding this new plan of care! Sincerely, Monica Escalante DPT
--- NOTE | 2024-01-07 13:39 | OTREVAL_ITS ---
Re-Evaluation Intro: Dr. Bo Nicholas MD, It has been my pleasure to treat GILBERTO CAMPBELL over the last 17 visits for CVA. Please see the progress note below for an update on the occupational therapy plan of care! Subjective Subjective: pt arrives after PT session doing well no new complaints Objective Objective/Function: pt has made progress in strengthening goals as well as FMC goals. pt demonstrates improvement with dysmetria as well as button management. ongoing therapy to continue to progress pt toward goals 9HPT: L 57 sec Plan Plan Frequency: 2x /Week Duration: 4 Weeks Visits in this POC: (No Limit- Med Evelyn) 4 weeks (2x week) Plan: strengthening FMC coordination attention to L side sensory re training Goals Goals Goal:: pt will increase L shoulder flexion strength to 12 pounds or more for increased I in self care/ IADL tasks 01/07/24: 14.5# from 12.6# GOAL HUGO pt will improve shoulder flexion strength to 16# or more for I in self care/ IADL tasks NEW GOAL 01/07/24 new goal: pt will increase L shoulder flexion strength to 14 pounds or more for increased I in self care/IADL tasks GOAL MET pt will increase L health care recruiter strength to 25 pounds or more for increased I in self care/IADL tasks GOAL MET 30# Pt will increase L hand health care recruiter strength to 35# or more in order to increase I in self care/ AIDL tasks NEW GOAL as of 01/07/24 pt will increase L lateral pinch strength to 4-5 pounds for increased I in self care/IADL tasks 01/07/24: 3 pounds progressing pt will increase L tripod pinch strength to 4-5 pounds for increased I in self care/IADL tasks now 7 pounds GOAL MET Goal:: pt will improve L hand 9 hole peg assessment completing in 50 sec or less for increased I in self care and IADL tasks 01/07/24 57 sec from 1 min pt will demonstrate the ability to button 5/5 buttons of various size for increased I in self care tasks 01/07/24 3/5 progressing Goal:: pt will improve L hand dorsal hand sensation semmes carmen score 4.31 or less for increased skin integrity and decreased risk for downing now 4.7 prorgerssing Goal:: pt will demonstrate the ability to attend to 100% stimulus on L side throughout session for I in self care tasks and IADL tasks by d/c still requires cues progressing pt will demonstrate improved dysmmetria of L hand finger to nose /5 trials by discharge 01/07/24: /5 from 06/12 progressing Goal:: per report pt will complete all self care dressing tasks with [place] in order to return to PLOF [place] GOAL MET occ difficulty with long pants however in general able to complete Goal:: pt will improve quick dash score to 30 or less for improved functional use of L hand during all functional tasks Anticipated Interventions Anticipated Interventions Anticipated Interventions: A/AAROM/PROM, Strengthening, Sensory Retraining, Modalities, Fine Motor Coord/Pal, Neuro Reeducation, Visual/Perceptual Skills, ADL Training, Education re assistive Equipment, Education re Diagnosis and Home Program Re-Evaluation Ending Re-evaluation ending: Please do not hesitate to contact me at [phone] by phone or if you have questions or concerns regarding this new plan of care! Sincerely, Leona Solis
--- NOTE | 2024-02-10 12:40 | HP.OTDCSUM ---
Discharge Summary D/C Summary: It has been my pleasure to treat GILBERTO CAMPBELL under orders from Dr. Bo Nicholas MD, for the diagnosis of CVA for a total of 26 visit(s). Please see the following information for a summary of their discharge status. Overall Improvement % Improvement: 90 Objective Objective/Function: pt has made progress in strengthening goals as well as FMC goals. pt demonstrates improvement with dysmetria as well as button management. ongoing therapy to continue to progress pt toward goals 9HPT: L 48 sec Goals Goal:: pt will increase L shoulder flexion strength to 12 pounds or more for increased I in self care/ IADL tasks 01/07/24: 14.5# from 12.6# GOAL MET pt will improve shoulder flexion strength to 16# or more for I in self care/ IADL tasks NEW GOAL 01/07/24 new goal: pt will increase L shoulder flexion strength to 14 pounds or more for increased I in self care/IADL tasks GOAL MET pt will increase L senior validation engineer strength to 25 pounds or more for increased I in self care/IADL tasks GOAL MET 30# Pt will increase L hand senior validation engineer strength to 35# or more in order to increase I in self care/ AIDL tasks NEW GOAL as of 01/07/24 02/10/24: 30# NOT MET pt will increase L lateral pinch strength to 4-5 pounds for increased I in self care/IADL tasks 02/10/24: 3 pounds NOT MET pt will increase L tripod pinch strength to 4-5 pounds for increased I in self care/IADL tasks now 7 pounds GOAL MET Goal:: pt will improve L hand 9 hole peg assessment completing in 50 sec or less for increased I in self care and IADL tasks 01/07/24 57 sec from 1 min pt will demonstrate the ability to button 5/5 buttons of various size for increased I in self care tasks GOAL MET Goal:: pt will improve L hand dorsal hand sensation semmes carmen score 4.31 or less for increased skin integrity and decreased risk for downing now 4.7 prorgerssing reports improved sensation unable to compelte assessment due to time constaints Goal:: pt will demonstrate the ability to attend to 100% stimulus on L side throughout session for I in self care tasks and IADL tasks by d/c still requires cues NOT MET pt will demonstrate improved dysmmetria of L hand finger to nose 5/5 trials by discharge NOT MET Goal:: per report pt will complete all self care dressing tasks with OK in order to return to PLOF OK GOAL MET Goal:: pt will improve quick dash score to 30 or less for improved functional use of L hand during all functional tasks Plan Plan: discharge D/C Information d/c sentence: If there are questions or concerns regarding this patient's occupational therapy, please fell free to call me at [phone]. Thank you for the referral of this patient. Sincerely, Leona Solis
--- NOTE | 2024-02-10 12:40 | HP.OT.NRP ---
Patient Information Patient Information: GILBERTO CAMPBELL was seen in my office for initial evaluation on 10/27/23. The following Plan of Care was established for this patient: POC Established Initial Frequency: 2x /Week Initial Duration: 4 Weeks Plan: discharge Anticipated Interventions Anticipated Interventions: A/AAROM/PROM, Strengthening, Sensory Retraining, Modalities, Fine Motor Coord/Pal, Neuro Reeducation, Visual/Perceptual Skills, ADL Training, Education re assistive Equipment, Education re Diagnosis and Home Program Last Seen Last Seen: This patient was last seen in our office 02/10/24. Pertinent comments regarding their Occupational therapy will appear below: This 73 year old female seen by OT for dx of CVA. pt progressed throughout POC in [facility], in hand manipulation, hand as well as pinch and UB strength (L), dysmetria as well as attention to L side during all functional tasks. pt discharge this date due to last scheduled visit and reaching maximal potential in current setting. pt to carryover exercises at home for ongoing progress. At this point I will be discontinuing this patient from occupational therapy. I would be happy to see this patient again in the future if found appropriate by the physician. Thank you! Leona Solis
--- NOTE | 2024-02-10 13:22 | HP.PTREVAL ---
Re-Evaluation Intro: Dr. Bo Nicholas MD, It has been my pleasure to treat GILBERTO CAMPBELL over the last 26 visits for CVA Jun 2023. Please see the progress note below for an update on the physical therapy plan of care! Subjective Subjective: Pt. reports overall doing well. Pt. reports being 96% better overall. Pt. is having a carotid artery surgery next week and would like to keep the case open incase she declines after this, I am okay with this. Objective Objective/Function: MMT: PT. has slight weakness in her L quad compared to R side, 90%. TU.3sec with use of quad cane GAIT: pt. has methodical gait pattern with step to on R side. Pt. uses quad cane LESLEE STAIRS: Pt. is able to negotiate with 1 HR and quad cane to ascend. Descending with use of cane in L hand to simulate home set up, was a little bit more difficult. Pt. ambulated on uneven surfaces without issues, but was more guarded. Plan Plan Plan: Pt. to be on hold until after her carotid surgery. She is overall doing well. If she does well after surgery I will DC back to physician. Balance/Gait/Functional tests Balance/Special Test Scores Functional Gait Assessment Score: 16 % Disability: 46.6700 CATSIB Score (Max score 120 seconds): 80 Lower Extremity Functional Score: 44 TUG Test Time Seconds: 17.3 Tug Test: <20 sec.=mostly independent 30 Second Chair Rise Test Seconds: 4 Goals Goals Goal 1:: Patient will be I with HEP and progression Goal Time Frame: 4-6 Weeks Goal Progress: Goal Met Goal 2:: Patient will ascend/desc stairs safely with one handrail independently. Goal Time Frame: 4-6 Weeks Goal Progress: Goal Met Goal 3:: Patient will ambulate >150 feet on uneven surface with LRD Goal Time Frame: 4-6 Weeks Goal Progress: Goal Met Goal 4:: Patient will report 80% improvment Goal Time Frame: 4-6 Weeks Goal Progress: Goal Met Anticipated Interventions Anticipated Interventions Patient/Client Instruction: Educate patient on: Benefits of Fitness Program Therapeutic Exercise to Include: Strength training, Endurance training, Balance training, Coordination, Agility training, Body mechanics, Postural training, Flexibilty training, Gait and locomotor training, Neuromotor development, Passive ROM, Dynamic Lumbar Stabilization and Scapular Strength/Stabilization For the Purpose of:: To improve muscle performance and motor function Re-Evaluation Ending Re-evaluation ending: Please do not hesitate to contact me at [phone] by phone or if you have questions or concerns regarding this new plan of care! Sincerely, REYNA HilarioT
== END 2024-02-10 19:00 | disposition home or self-care (01) ==
LOC: PT 13:00
PROVIDERS: PCP Family Medicine; Referring Provider Family Medicine; Visit Provider Family Medicine
DX: I69.351 Hemiplegia and hemiparesis following cerebral infarction affecting right dominant side (principal)
CPT/HCPCS: 97110; 97112; 97116; 97162; 97166; 97530

== ENCOUNTER → 2024-04-19 | Outpatient (CLI) | payer MEDICARE, SELFPAY ==
--- NOTE | 2024-04-19 12:57 | BD_ITS ---
STUDY: DUAL ENERGY X-RAY ABSORPTIOMETRY / DXA REASON FOR EXAM: Female, 73 years old. 627.8Menopausal postmenopausal BONE DENSITY REASON FOR EXAM TECHNIQUE: Bone Mineral Density (BMD) measurements of lumbar spine and bilateral hips were obtained. COMPARISON: Comparison is made with prior study April 15, 2022. FINDINGS: Lumbar Spine (L1-L4): g/cm2 (0.951) / T-score (-0.6) / Z-score (1.8) Findings are suggestive of normal bone density with a low fracture risk. Left Femur Total: g/cm2 (0.769) / T-score (-1.4) / Z-score (0.4) Left Femoral Neck: g/cm2 (0.616) / T-score (-2.1) / Z-score (0.0) Right Femur Total: g/cm2 (0.795) / T-score (-1.2) / Z-score (0.6) Right Femoral Neck: g/cm2 (0.637) / T-score (-1.9) / Z-score (0.2) The T-Scores on the most recent prior examination were: Lumbar Spine (L1-L4): There has been worsening of bone density since the previous examination. Left Femur Total: which represents a worsening of 7.3%. Right Femur Total: which represents a worsening of 1.4%. BD/Dexa Bone Density Study IMPRESSION: The patient is considered osteopenic as outlined below according to World Ja[employer] Organization (WHO) criteria with a high fracture risk. There has been worsening of bone density since the previous examination. Reference Information: The T-score is the number of standard deviations above or below the standard which is normal for young adults at their peak bone mineral density. The World Health Organization (WHO) interprets the T-scores as follows: Above -1 Normal bone density Between -1 and -2.5 Osteopenia Equal to / or below -2.5 Osteoporosis As a practical clinical guideline, osteopenia may be graded as follows: Mild -1 through -1.5 Moderate -1.6 through -2.0 Severe -2.1 through -2.4 The Z-score is the number of standard deviations above or below age-matched controls. A Z-score of less than -1.5 would be considered abnormal. References: 1. NIH Osteoporosis and Related Bone Diseases www osteo.org 2. International Society for Clinical Densitometry www iscd.org 3. National Osteoporosis Foundation www nof.org Electronically Signed: Gordo Clay MD at 15:48 EST ,
== END | disposition home or self-care (01) ==
LOC: OPBD 12:53
PROVIDERS: PCP Family Medicine; Referring Provider Family Medicine; Visit Provider Family Medicine
DX: N95.9 Unspecified menopausal and perimenopausal disorder (principal)
CPT/HCPCS: 77080

== ENCOUNTER 2024-04-21 13:12 | Emergency (ER) | payer MEDICARE, SELFPAY ==
[2024-04-21] VITALS (7 sets, daily range): BP systolic 119–157; BP diastolic 60–83; PULSE 85–124; RESP 12–29; TEMP 36.8; O2SAT 93–97; BMI 33.9
--- NOTE | 2024-04-21 14:09 | CT_ITS ---
STUDY: CTA HEAD AND NECK WITH CONTRAST REASON FOR EXAM: Female, 73 years old. vertigo. History of prior carotid endarterectomy. RADIATION DOSAGE (If Supplied By Facility): CTDIvol = ( 28.23 ) mGy, DLP = ( 1495.16 ) mGycm TECHNIQUE: CT angiography was performed with a multi-detector CT scanner. Data acquisition was obtained from the skull base through the vertex following intravenous administration of IV 100mL [id number]-[id number]. MIP images were reconstructed from the axial data set. Post-processing of the angiographic images was performed, with multiplanar reformation and 3D reconstruction. Individualized dose optimization techniques were used for this CT. COMPARISON: Comparison is made with prior study December 22, 2003. FINDINGS: Normal bilateral petrous carotid arteries. There is calcified plaque formation of the right cavernous carotid artery, without a cross-sectional luminal stenosis. There is calcified plaque formation of the left cavernous carotid artery, without a cross-sectional luminal stenosis. Normal right A1 segments of the anterior cerebral artery. Normal left A1 segments of the anterior cerebral artery. Normal intact anterior communicating artery (ACOM). Normal bilateral A2 segments of the anterior cerebral arteries. Normal right M1 and M2 segments of the middle cerebral arteries, with a normal M1 bifurcation. Normal left M1 and M2 segments of the middle cerebral arteries, with a normal M1 bifurcation. Normal right posterior communicating artery (PCOM). Normal left posterior communicating artery (PCOM). Normal bilateral vertebral arteries. Normal basilar artery with a normal basilar bifurcation. The visualized bilateral superior cerebellar (SCA) arteries are normal. Normal bilateral P1, P2 and visualized P3 segments of the posterior cerebral arteries. There is no demonstrated aneurysm of the osage of Velázquez. There is evidence of old encephalomalacia and infarct involving the posterior right temporal parietal occipital lobes. There is evidence of a cerebral atrophy and lucencies in the periventricular suspicion a caput for chronic old small vessel disease. Heterogeneous appearance of the thyroid gland. AORTIC ARCH: There is atherosclerotic calcific plaque formation of the aortic arch and great vessels arising from the aortic arch, without a hemodynamically significant stenosis. There is a normal origin of the brachiocephalic, left common carotid, and left subclavian arteries. RIGHT CAROTID ARTERIES: Normal right common carotid artery (CCA). Normal right common carotid bulb. Normal origin of the right internal carotid (ICA) artery without a hemodynamically significant stenosis. Normal visualized cervical portion of the right internal carotid artery. Normal origin of the right external carotid artery (ECA). LEFT CAROTID ARTERIES: Normal left common carotid artery (CCA). There is moderate atherosclerotic plaque formation with moderate narrowing of the carotid bulb. Normal origin of the left internal carotid (ICA) artery without a hemodynamically significant stenosis. Normal visualized cervical portion of the left internal carotid artery. There is extensive atherosclerotic plaque formation of the origin of the left external carotid artery with an estimated stenosis of greater than 70%. VERTEBRAL ARTERIES: Normal bilateral vertebral arteries. CT/CTA Head AND Neck W/ Contrast IMPRESSION: No significant occlusive disease is seen. Electronically Signed: Gordo Caly MD at 15:59 EST ,
--- NOTE | 2024-04-21 14:09 | CT_ITS ---
STUDY: CT THORACIC SPINE WITHOUT CONTRAST REASON FOR EXAM: Female, 73 years old. Trauma, pain RADIATION DOSAGE (If Supplied By Facility): CTDIvol = ( 37.27 ) mGy, DLP = ( 1334.34 ) mGycm TECHNIQUE: The patient was scanned in a multi detector CT scanner. High resolution imaging was performed. Images were obtained from T1 to L1 vertebral level. Sagittal and coronal images were reconstructed. Individualized dose optimization techniques were used for this CT. COMPARISON: None. FINDINGS: Normal visualized cervical spine. Normal kyphosis of the thoracic spine. There is no substantial scoliosis. There is multilevel endplate spondylosis of the thoracic spine. There is multilevel degenerative disc disease with loss of the disc space heights. The soft tissue structures are unremarkable. CT/Spine Thoracic without Contras IMPRESSION: Multilevel disc space narrowing and spondylosis. No fracture is seen. Electronically Signed: Gordo Clay MD at 16:01 EST ,
--- NOTE | 2024-04-21 14:09 | CT_ITS ---
STUDY: CT CERVICAL SPINE WITHOUT CONTRAST REASON FOR EXAM: Female, 73 years old. Injury due to a fall. RADIATION DOSAGE (If Supplied By Facility): CTDIvol = ( 26.26 ) mGy, DLP = ( 496.69 ) mGycm TECHNIQUE: High resolution transaxial imaging was performed without contrast material. Sagittal and coronal images were reconstructed. Individualized dose optimization techniques were used for this CT. COMPARISON: None FINDINGS: Normal craniovertebral junction. There are degenerative changes of the anterior atlantoaxial articulation. Normal odontoid process. There is straightening of the normal cervical lordosis. Normal vertebral bodies and posterior osseous elements. Partial opacification of the mastoid air cells bilaterally. C2-3: Facet joint osteoarthritis and hypertrophy worse on the left side. Mild degree of left neural foraminal stenosis. C3-4: Minimal anterior listhesis of C3 on C4. Facet joint osteoarthritis and hypertrophy. Uncovertebral arthrosis. Bilateral neural foraminal stenosis left greater than right. C4-5: There is fusion of the disc space. Uncovertebral arthrosis. Bilateral neural foraminal stenosis. C5-6: Moderate degree of disc space narrowing and spondylosis. Mild degree of bilateral neural foraminal stenosis. C6-7: Marked degree of disc space narrowing. Spondylosis. Mild degree of bilateral neural foraminal stenosis worse on the right side. C7-T1: Normal endplates. Normal disc height and morphology. Normal central canal and intervertebral neuroforamina. Atherosclerotic plaque formation of the carotid bifurcations bilaterally. CT/Spine Cervical without Contras IMPRESSION: Multilevel degenerative changes, as described above. Electronically Signed: Gordo Clay MD at 15:52 EST ,
--- NOTE | 2024-04-21 14:10 | EKG12_ITS ---
Test Reason : GENERAL Blood Pressure : */* mmHG Vent. Rate : 86 BPM Atrial Rate : 86 BPM P-R Int : 212 ms QRS Dur : 138 ms QT Int : 390 ms P-R-T Axes : 34 -78 103 degrees QTcB Int : 466 ms Sinus rhythm with 1st degree A-V block Left axis deviation Non-specific intra-ventricular conduction block Possible Anterolateral infarct , age undetermined Abnormal ECG Confirmed by JEFF DUBOSE, AZALIA ([id number]), multimedia editor MUNA SHAIKH ([id number]) on 04/26/2024 7:52:09 AM Referred By: Confirmed By: AZALIA AGUILAR MD
[2024-04-21] MEDS: LORazepam 2 MG/ML Syringe 0.5 MG IV (14:36)
[2024-04-21] MEDS: Ondansetron 4 MG/2 ML Vial IV ×2 (14:36→21:39)
[2024-04-21 14:49] LABS: Absolute Lymphocyte Count 1.12 X10^3/uL (0.83-4.51); Absolute Neutrophil Count 14.3 X10^3/uL (2.0-7.7); Basophil# 0.11 X10^3/uL; Basophil% 0.7 % (0-1); Eosinophil# 0.07 X10^3/uL; Eosinophils% 0.4 % (0-5); Hematocrit 42.4 % (37-47); Hemoglobin 13.8 g/dL (12.0-15.0); Lymphocyte # 1.12 X10^3/ul (0.83-4.51); Mean Corp Hgb Conc 32.5 g/dL (32-36); Mean Corpuscular Hgb 30.7 pg (27.0-32.0); Mean Corpuscular Volume 94.2 fL (81-99); Mean Platelet Vol. 13.2 fl (6.2-12.0); Monocyte# 0.37 X10^3/uL; Monocyte% 2.3 % (0-10); NRBC Flagged by Analyzer 0 % (0-5); Neutrophil # 14.34 X10^3/uL (2.7-7.7); Platelet Count 292 K/mm3 (150-450); RBC Distribution Width CV 12.1 % (11.6-14.6); RBC Distribution Width SD 42.2 fl (35.1-43.9); White Blood Count 16.1 K/mm3 (4.4-11.0)
[2024-04-21 15:07] LABS: AST(SGOT) 26 U/L (15-37); Alanine Aminotransfer ALT/SGPT 27 U/L (13-56); Albumin, Serum 3.6 g/dL (3.2-5.0); Alkaline Phosphatase 123 U/L (45-117); Anion Gap 6 (5-15); BUN 23 mg/dL (7-18); BUN/Creat Ratio 23.7 RATIO (10-20); Calcium,Total 10.8 mg/dL (8.5-10.1); Chloride 109 mmol/L (98-107); Creatinine, Serum 0.97 mg/dL (0.55-1.02); EST Glomerular Filtration Rate 60 mL/min (>60); Est Glom Filt Rate - Afr Amer 72 mL/min (>60); Estimated Creatinine Clearance 54.35 ml/min; Globulin 3.6 g/dL (2.2-4.2); Glucose 127 mg/dL (74-106); Lipase 31 U/L (13-75); Potassium 4.4 mmol/L (3.5-5.1); Protein, Total 7.2 g/dL (6.4-8.2); Sodium Level 140 mmol/L (136-145); Troponin-I HS 23 pg/mL (3.0-54.0)
--- NOTE | 2024-04-21 15:22 | EX.ED.DYSGE1 ---
HPI <Dr. Lisa Iverson DO - Last Filed: 04/22/24 08:42> History of Present Illness Chief Complaint: Fall Informant: patient Narrative Narrative: Patient is a 73-year-old female with history of SHAREE, prior stroke with left-sided deficits, GERD, hypertension, diabetes, coronary artery disease, cardiomyopathy and prior right carotid arterectomy performed in February of this year at [facility]. She is presenting with severe dizziness and fall. Patient states last night she had a particularly bad dizzy spell in bed. She does report a remote history of vertigo. She feels okay this morning but then when she went to the bathroom started get dizzy again. She states she got so dizzy that her legs gave out on her and she fell with her chin hitting the table. She then fell to the floor on her back. She has had pretty persistent vomiting from the dizziness since. She took a nap for about 2.5 hours and woke up again feeling dizzy and started throwing up again. Was brought in for further evaluation. From her fall she did not lose conscious. Her and daughter helped get her back up. She is not take anything for symptoms. No other complaints or concerns at this time. Denies any acute vision changes, numbness or tingling. Does have chronic left-sided deficits from prior stroke but does not feel that they are any different than normal. [facility] <Dr. Lisa Iverson DO - Last Filed: 04/22/24 08:42> [facility] Medical History Coronary artery disease STEMI (ST elevation myocardial infarction) Sleep apnea Stroke/cerebrovascular accident Takotsubo cardiomyopathy Uncontrolled hypertension Eosinophilia, unspecified Osteoporosis Hemianopia of left eye Acute left hemiparesis Glaucoma Obesity (BMI 30.0-34.9) Osteoarthritis GERD (gastroesophageal reflux disease) Depression HTN (hypertension) Subarachnoid hemorrhage Ischemic cerebrovascular accident (CVA) Ulnar neuropathy at elbow of left upper extremity Tendonitis Left posterior interosseous nerve syndrome Gastric ulcer Left hand weakness History of breast cancer Major depressive disorder, recurrent episode, moderate Lesion of right radial nerve Home Medications ?Medication ?Instructions ?Recorded ?Last Taken ?Type latanoprost 0.005 % eye drops 1 drp EACH EYE QHS Eye drops 08/10/14 07/28/23 History omeprazole 20 mg capsule,delayed 20 mg PO DAILY GERD 08/30/20 07/29/23 History release alendronate 70 mg tablet 70 mg PO CHONG Bone health 07/06/23 Unknown History aspirin 81 mg tablet,delayed 81 mg PO BREAKFAST heart health #0 07/29/23 07/29/23 Rx release tabs nitroglycerin 0.4 mg sublingual 0.4 mg sublingual Q5M PRN 07/29/23 Unknown Rx tablet Cardiac/Chest Pain #0 tabs Petrolatum 33% [Eucerin Eqivalent] 1 applic topical QHS #1 applic 08/21/23 Unknown Rx acetaminophen 325 mg tablet 650 mg (2 x 325 mg) PO Q4H PRN PRN 08/21/23 Unknown Rx Pain 1-10 Or Fever #1 TAB diclofenac sodium 1 % topical gel 2 g topical BID #100 grams 08/21/23 Unknown Rx (Voltaren Arthritis Pain) gabapentin 100 mg capsule 100 mg PO 2100 #1 cap 08/21/23 Unknown Rx ascorbic acid (vitamin C) 500 mg 500 mg PO BID 01/01/24 Unknown History tablet (Vitamin C) losartan 50 mg tablet 50 mg PO .COMPLEX blood pressure 01/01/24 Unknown History magnesium 200 mg tablet 200 mg PO DAILY 01/01/24 Unknown History meloxicam 15 mg tablet 15 mg PO DAILY 01/01/24 Unknown History carvedilol 12.5 mg tablet 12.5 mg PO BIDCM 01/04/24 Unknown History atorvastatin 40 mg tablet 40 mg PO DAILY cholesterol 04/21/24 Unknown History d-mannose 500 mg capsule 500 mg PO BID 04/21/24 Unknown History hydrocodone-acetaminophen 5-325mg 1 tab PO Q6H PRN PRN Pain 3 days 04/21/24 Unknown Rx 5mg-325mg #10 TABLETS aipefolt-rnnm-lpsk 8 mg-folic 400 1 tab PO DAILY 04/21/24 Unknown History mcg-K 50 mcg-lutein 300 mcg tablet (Century Women 50 Plus) Allergy/AdvReac Type Severity Reaction Status Date / Time bupropion (From Wellbutrin) Allergy Severe Anaphylaxis Verified 04/21/24 13:19 Penicillins (PCN) Allergy Severe Anaphylaxis Verified 04/21/24 13:19 cariprazine (From Vraylar) AdvReac Severe Delirium/severe Verified 04/21/24 13:19 agitation quetiapine (From Seroquel) AdvReac Severe Delirium/severe Verified 04/21/24 13:19 agitation levetiracetam (From Keppra) AdvReac Other Verified 04/21/24 13:19 Family History Aunt Cancer Sister Cancer Surgical History History of right mastectomy History of lumpectomy of right breast Social History household members: spouse housing: other details: One-story house with a basement. Laundry is upstairs number of children: 1 current occupational status: retired Smoking Status: Never smoker Electronic Cigarette Use: not used second hand exposure: No alcohol intake: current alcohol intake frequency: holidays/special occasions only substance use type: does not use ROS <Dr. Lisa Iverson, DO - Last Filed: 04/22/24 08:42> ROS ED Constitutional Constitutional ED: Denies chills or fever(s) Eyes Eyes: Denies blurry vision or change in vision Cardiovascular Cardiovascular: Denies chest pain Gastrointestinal Gastrointestinal: Reports nausea and vomiting; Denies abdominal pain or diarrhea Musculoskeletal Musculoskeletal: Reports back pain and neck pain; Denies arthralgias or myalgias Neurologic Neurologic: Reports other Details: Chronic paresthesia and weakness on the left side from prior stroke ; Denies headache(s) Hematologic/Lymphatic Hematologic/Lymphatic: Denies easy bleeding or easy bruising EXAM <Dr. Lisa Iverson, DO - Last Filed: 04/22/24 08:42> Physical Exam Const Vital Signs: 04/21/24 13:13 04/21/24 15:00 04/21/24 15:40 Temperature 98.2 F Temperature Source Temporal Pulse Rate 85 88 Respiratory Rate 18 14 Respiratory Effort Normal Non-Labored Blood Pressure 149/71 H 135/70 H Blood Pressure Mean 97 90 Pulse Ox 97 95 Oxygen Delivery Method Room Air Room Air 04/21/24 17:00 04/21/24 18:46 04/21/24 19:00 Temperature Temperature Source Pulse Rate 88 124 H 97 Respiratory Rate 12 29 H 20 H Respiratory Effort Blood Pressure 139/82 H 157/83 H Blood Pressure Mean 99 107 Pulse Ox Oxygen Delivery Method 04/21/24 21:00 04/21/24 21:52 Temperature Temperature Source Pulse Rate 93 90 Respiratory Rate 14 20 H Respiratory Effort Blood Pressure 119/60 Blood Pressure Mean 79 Pulse Ox 93 Oxygen Delivery Method Positive well nourished and well developed General Appearance ED: well developed and NAD HEENT Reports TM's clear and moist mucous membranes Negative for trauma Tympanic Membrane ED: Yes TM's clear Eyes PERRL and EOMs intact bilaterally Neck supple General: tenderness Chest Wall inspection of chest normal and palpation of chest normal Resp normal respiratory effort and clear to auscultation bilaterally Cardio regular rate and regular rhythm GI normal to inspection, nondistended, normoactive bowel sounds and non-tender Back/Spine Back/Spine Narrative: Tenderness thoracic spine approximately T7-9. No step-offs noted deformity. No midline lumbar tenderness. Extremity normal to inspection General Extremety ED: Negative for edema or tenderness General Extremity: Negative for edema Neuro oriented x3 and CN's II-XII intact bilaterally Neuro Narrative: Difficult establish to evaluate for nystagmus due to the patient's dizziness/vertigo. Patient is a hard time keeping her eyes open. Extremity but she has baseline weakness of the left extremity from a prior stroke she does not have any truncal ataxia. On [id number] she does have some slight dysmetria with the left and states she has a hard time looking where she is going because of her dizziness. Normal [id number] bilaterally. Normal finger-nose on the right. Slight weakness on the left side. This is chronic. Normal sensation throughout. 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 Motor Exam: Negative for general weakness Psych mental status grossly normal Skin no rashes or lesions noted and no wounds <Dr. Ric Waterman MD - Last Filed: 04/21/24 21:24> Physical Exam Const Vital Signs: 04/21/24 13:13 04/21/24 15:00 04/21/24 15:40 Temperature 98.2 F Temperature Source Temporal Pulse Rate 85 88 Respiratory Rate 18 14 Respiratory Effort Normal Non-Labored Blood Pressure 149/71 H 135/70 H Blood Pressure Mean 97 90 Pulse Ox 97 95 Oxygen Delivery Method Room Air Room Air 04/21/24 17:00 04/21/24 18:46 04/21/24 19:00 Temperature Temperature Source Pulse Rate 88 124 H 97 Respiratory Rate 12 29 H 20 H Respiratory Effort Blood Pressure 139/82 H 157/83 H Blood Pressure Mean 99 107 Pulse Ox Oxygen Delivery Method 04/21/24 21:00 04/21/24 21:52 Temperature Temperature Source Pulse Rate 93 90 Respiratory Rate 14 20 H Respiratory Effort Blood Pressure 119/60 Blood Pressure Mean 79 Pulse Ox 93 Oxygen Delivery Method [facility] <Dr. Lisa Iverson, DO - Last Filed: 04/22/24 08:42> [facility] Narrative Medical decision making narrative: Patient is evaluated for dizziness, nausea and vomiting as well as a fall. The dizziness is from vertigo. She is little risk factors for central vertigo and her symptoms are too acute at this time to really further evaluate with Leyla-Hallpike or further bedside testing. Will obtain workup including CTA of the head and neck, CT of the cervical spine and CT of the thoracic spine to rule out any traumatic injury. Patient is given IV Zofran and Ativan emergency room for symptoms. Patient will be signed out to oncoming edition pending CT imaging results and repeat evaluation. Patient does have a leukocytosis of 16.1, unclear if this is reactive from vomiting, inflammatory versus infectious. I did add on a urinalysis. Lab Data Labs: Laboratory Results - last 24 hr 04/21/24 04/21/24 13:30 15:56 WBC 16.1 H RBC 4.50 Hgb 13.8 Hct 42.4 MCV 94.2 MCH 30.7 MCHC 32.5 RDW Std Deviation 42.2 RDW Coeff of Kenisha 12.1 Plt Count 292 MPV 13.2 H Immature Gran % (Auto) 0.600 Neut % (Auto) 89.0 H Lymph % (Auto) 7.0 L Grand % (Auto) 2.3 Eos % (Auto) 0.4 Baso % (Auto) 0.7 Absolute Neuts (auto) 14.3 H Absolute Lymphs (auto) 1.12 Nucleated RBC % 0 Sodium 140 Potassium 4.4 Chloride 109 H Carbon Dioxide 25.0 Anion Gap 6 BUN 23 H Creatinine 0.97 Estim Creat Clear Calc 54.35 Est GFR (MDRD) Af Amer 72 Est GFR (MDRD) Non-Af 60 BUN/Creatinine Ratio 23.7 H Glucose 127 H Calcium 10.8 H Total Bilirubin 0.70 AST 26 ALT 27 Alkaline Phosphatase 123 H Troponin I High Sens 23 Total Protein 7.2 Albumin 3.6 Globulin 3.6 Albumin/Globulin Ratio 1.0 Lipase 31 Urine Color Yellow Urine Clarity Clear Urine pH 7.0 Ur Specific Pateros 1.010 Urine Protein Negative Urine Glucose (UA) Normal Urine Ketones Negative Urine Occult Blood Negative Urine Nitrite Negative Urine Bilirubin Negative Urine Urobilinogen Normal Ur Leukocyte Esterase Negative Urine RBC 0-5 SEEN Urine WBC 0-5 SEEN Ur Squamous Epith Cells 0 SEEN Urine Bacteria 0 SEEN Hyaline Casts 0-5 SEEN Urine Mucus 1+ Radiography Diagnostic Testing: Clinical Impression(s) from Imaging Studies Cervical Spine CT 04/21/24 14:09 IMPRESSION: Multilevel degenerative changes, as described above. Electronically Signed: Gordo Clay MD at 15:52 EST , Head/Neck CTA 04/21/24 14:09 IMPRESSION: No significant occlusive disease is seen. Electronically Signed: Gordo Clay MD at 15:59 EST , Thoracic Spine CT 04/21/24 14:09 IMPRESSION: Multilevel disc space narrowing and spondylosis. No fracture is seen. Electronically Signed: Gordo Clay MD at 16:01 EST , Rhythm Strip Rhythm Strip: Sinus Rhythm Rate: 86 Ectopy: None EKG Initial EKG: Attestation: I personally reviewed and interpreted this EKG as follows: Interpretation: Sinus Rhythm Comments: Normal sinus rhythm rate of 86 bpm with first-degree AV block IN interval 212 Left axis deviation Left bundle branch block Compared to prior EKG patient was a first-degree block Prior EKG tracings: available for review <Dr. Ric Waterman MD - Last Filed: 04/21/24 21:24> [facility] Lab Data Attestation: I reviewed the patient's lab results. Lab results narrative: White count is slightly elevated with a shift. This is nondiagnostic. Glucose is elevated 127 with normal CO2 anion gap. UA is negative. Labs: Laboratory Results - last 24 hr 04/21/24 04/21/24 13:30 15:56 WBC 16.1 H RBC 4.50 Hgb 13.8 Hct 42.4 MCV 94.2 MCH 30.7 MCHC 32.5 RDW Std Deviation 42.2 RDW Coeff of Kenisha 12.1 Plt Count 292 MPV 13.2 H Immature Gran % (Auto) 0.600 Neut % (Auto) 89.0 H Lymph % (Auto) 7.0 L Grand % (Auto) 2.3 Eos % (Auto) 0.4 Baso % (Auto) 0.7 Absolute Neuts (auto) 14.3 H Absolute Lymphs (auto) 1.12 Nucleated RBC % 0 Sodium 140 Potassium 4.4 Chloride 109 H Carbon Dioxide 25.0 Anion Gap 6 BUN 23 H Creatinine 0.97 Estim Creat Clear Calc 54.35 Est GFR (MDRD) Af Amer 72 Est GFR (MDRD) Non-Af 60 BUN/Creatinine Ratio 23.7 H Glucose 127 H Calcium 10.8 H Total Bilirubin 0.70 AST 26 ALT 27 Alkaline Phosphatase 123 H Troponin I High Sens 23 Total Protein 7.2 Albumin 3.6 Globulin 3.6 Albumin/Globulin Ratio 1.0 Lipase 31 Urine Color Yellow Urine Clarity Clear Urine pH 7.0 Ur Specific Pateros 1.010 Urine Protein Negative Urine Glucose (UA) Normal Urine Ketones Negative Urine Occult Blood Negative Urine Nitrite Negative Urine Bilirubin Negative Urine Urobilinogen Normal Ur Leukocyte Esterase Negative Urine RBC 0-5 SEEN Urine WBC 0-5 SEEN Ur Squamous Epith Cells 0 SEEN Urine Bacteria 0 SEEN Hyaline Casts 0-5 SEEN Urine Mucus 1+ Radiography Diagnostic Testing: Clinical Impression(s) from Imaging Studies Cervical Spine CT 04/21/24 14:09 IMPRESSION: Multilevel degenerative changes, as described above. Electronically Signed: Gordo Clay MD at 15:52 EST , Head/Neck CTA 04/21/24 14:09 IMPRESSION: No significant occlusive disease is seen. Electronically Signed: Gordo Clay MD at 15:59 EST , Thoracic Spine CT 04/21/24 14:09 IMPRESSION: Multilevel disc space narrowing and spondylosis. No fracture is seen. Electronically Signed: Gordo Clay MD at 16:01 EST , Images reviewed by me and interpretation by radiologist was reviewed. There is no evidence of fracture. There is no evidence of intracranial bleed. There is no evidence of any arterial issue regarding the head or neck as well since she complained of vertigo. On reassessment at 1900 she had no vertigo. She is able to ambulate. She is not complaining of buttocks pain. She was given morphine for her buttocks pain Discharge Plan Triage Chief Complaint: Fall ED Provider: Lisa Iverson Dx/Rx/DC Orders Clinical Impression: Vertigo, HTN (hypertension), History of breast cancer, Coronary artery disease, Hyperlipidemia, Injury due to fall, Concussion, Acute cervical myofascial strain, Back pain, thoracic, Sacral contusion Instructions: ED Head Injury (Adult), ED Back and Neck Pain, General, ED Vertigo, Unspecified Prescriptions: New hydrocodone-acetaminophen 5-325 mg tablet 1 tab PO Q6H PRN PRN (Reason: Pain) 3 Days Qty: 10 0RF No Action omeprazole 20 mg capsule,delayed release(DR/EC) 20 mg PO DAILY carvedilol 12.5 mg tablet 12.5 mg PO BIDCM latanoprost 1 DROP bottle 1 drp EACH EYE QHS Patient Comments: GLAUCOMA alendronate 70 mg tablet 70 mg PO CHONG aspirin 81 mg Tablet,Delayed Release (Dr/Ec) 81 mg PO BREAKFAST Qty: 0 0RF nitroglycerin 0.4 mg Tablet, Sublingual 0.4 mg sublingual Q5M PRN (Reason: Cardiac/Chest Pain) Qty: 0 0RF acetaminophen 325 mg Tablet 650 mg PO Q4H PRN PRN (Reason: Pain 1-10 Or Fever) Qty: 1 0RF gabapentin 100 mg Capsule 100 mg PO 2100 Qty: 1 0RF Petrolatum 33% [Eucerin Eqivalent] 1 applic topical QHS Qty: 1 0RF Rx Instructions: apply from the knees to the toes Q HS diclofenac sodium [Voltaren Arthritis Pain] 1 % gel 2 g topical BID Qty: 100 0RF Rx Instructions: apply to the anterior shins and the feet BID Century Women 50 Plus 8 mg iron-400 mcg-50 mcg tablet 1 tab PO DAILY d-mannose 500 mg capsule 500 mg PO BID atorvastatin 40 mg tablet 40 mg PO DAILY ascorbic acid (vitamin C) [Vitamin C] 500 mg tablet 500 mg PO BID magnesium 200 mg tablet 200 mg PO DAILY losartan 50 mg tablet 50 mg PO .COMPLEX Rx Instructions: 50 mg orally twice daily meloxicam 15 mg tablet 15 mg PO DAILY Primary Care Provider: Bo Nicholas Referrals: Bo Nicholas MD [Primary Care Provider] - 1 Week if not improving Print Language: Bulgarian Disposition Disposition: Home, Self Care Discharge Date/Time: 04/21/24 21:54
[2024-04-21 16:01] LABS: Bacteria 0 SEEN /hpf (None Seen); Squamous Epithelial Cells - UA 0 SEEN /hpf (5-10)
[2024-04-21 16:11] LABS: Color, Urine Yellow (Yellow); Glucose, Dipstick Normal (Normal); Ketone-Dipstick Negative (Negative); Leukocyte Esterase-Dipstick Negative /ul (Negative); Nitrite-Dipstick Negative (Negative); Occult Blood-Urine Negative /ul (Negative); Protein-Dipstick Negative (Negative); Urine Bilirubin Dipstick Negative (Negative); Urine Clarity Clear (Clear); Urine Urobilinogen Normal (Normal)
[2024-04-21 16:37] LABS: Mucous, Urine 1+ /hpf (<or=2+); White Blood Cells 0-5 SEEN /hpf (0-5)
[2024-04-21 16:38] LABS: Hyaline Cast 0-5 SEEN /lpf (0-5); Red Blood Cells-Urine 0-5 SEEN /hpf (0-5)
[2024-04-21] MEDS: Morphine 4 MG/ML Syringe IV (20:41)
== END 2024-04-21 21:54 | disposition home or self-care (01) ==
PROVIDERS: Emergency Provider Emergency Medicine; PCP Family Medicine; Visit Provider Emergency Medicine
DX: R42 Dizziness and giddiness (principal); I69.354 Hemiplegia and hemiparesis following cerebral infarction affecting left non-dominant side; F33.1 Major depressive disorder, recurrent, moderate; I42.9 Cardiomyopathy, unspecified; E11.9 Type 2 diabetes mellitus without complications; M54.6 Pain in thoracic spine; S30.0XXA Contusion of lower back and pelvis, initial encounter; S06.0X0A Concussion without loss of consciousness, initial encounter; S16.1XXA Strain of muscle, fascia and tendon at neck level, initial encounter; W01.190A Fall on same level from slipping, tripping and stumbling with subsequent striking against furniture, initial encounter; I10 Essential (primary) hypertension; I44.0 Atrioventricular block, first degree; I44.7 Left bundle-branch block, unspecified; I25.2 Old myocardial infarction; I25.10 Atherosclerotic heart disease of native coronary artery without angina pectoris; K21.9 Gastro-esophageal reflux disease without esophagitis; E78.5 Hyperlipidemia, unspecified; E66.9 Obesity, unspecified; H40.9 Unspecified glaucoma; M81.0 Age-related osteoporosis without current pathological fracture; M19.90 Unspecified osteoarthritis, unspecified site; G47.33 Obstructive sleep apnea (adult) (pediatric); Z85.3 Personal history of malignant neoplasm of breast; Z88.0 Allergy status to penicillin; Z79.82 Long term (current) use of aspirin; Z90.11 Acquired absence of right breast and nipple; Z87.19 Personal history of other diseases of the digestive system; Z79.899 Other long term (current) drug therapy; Z98.890 Other specified postprocedural states
CPT/HCPCS: 96374; 96375; 96376; 99285; 70496; 70498; 72125; 72128; 80053; 81001; 83690; 84484; 85025; 93005; J7030; Q9967; A4216; J2405

== ENCOUNTER 2024-04-23 03:47 | Inpatient (IN) | payer MEDICARE, SELFPAY ==
[2024-04-23] VITALS (10 sets, daily range): BP systolic 127–162; BP diastolic 63–85; PULSE 72–89; RESP 14–18; TEMP 36.6–36.9; O2SAT 85–99; BMI 32.8; BMI 34.8
--- NOTE | 2024-04-23 04:04 | ED.VIS.FALL ---
HPI HPI - Fall History of Present Illness Chief Complaint: Fall Informant: patient and spouse/S.O. Narrative Narrative: Patient seen here day before yesterday because of a fall caused by an episode of vertigo. She returns because she has severe nausea and severe pain in her back from the fall. She has had no other falls since her visit to the ER the other day, and she has no new symptoms. She feels nauseated, and it is not associated with vertigo which she states is improved and not currently present. She has her eyes closed and keeps saying that she does not want open them out of fear for developing vertigo. She denies a headache, new neurologic symptoms, chest pain, abdominal pain. Her back pain is low but radiates all the way up. [facility] Medical History Coronary artery disease STEMI (ST elevation myocardial infarction) Sleep apnea Stroke/cerebrovascular accident Takotsubo cardiomyopathy Uncontrolled hypertension Eosinophilia, unspecified Osteoporosis Hemianopia of left eye Acute left hemiparesis Glaucoma Obesity (BMI 30.0-34.9) Osteoarthritis GERD (gastroesophageal reflux disease) Depression HTN (hypertension) Subarachnoid hemorrhage Ischemic cerebrovascular accident (CVA) Ulnar neuropathy at elbow of left upper extremity Tendonitis Left posterior interosseous nerve syndrome Gastric ulcer Left hand weakness History of breast cancer Major depressive disorder, recurrent episode, moderate Lesion of right radial nerve Home Medications ?Medication ?Instructions ?Recorded ?Last Taken ?Type latanoprost 0.005 % eye drops 1 drp EACH EYE QHS Eye drops 08/10/14 07/28/23 History omeprazole 20 mg capsule,delayed 20 mg PO DAILY GERD 08/30/20 07/29/23 History release alendronate 70 mg tablet 70 mg PO CHONG Bone health 07/06/23 Unknown History aspirin 81 mg tablet,delayed 81 mg PO BREAKFAST heart health #0 07/29/23 07/29/23 Rx release tabs nitroglycerin 0.4 mg sublingual 0.4 mg sublingual Q5M PRN 07/29/23 Unknown Rx tablet Cardiac/Chest Pain #0 tabs acetaminophen 325 mg tablet 650 mg (2 x 325 mg) PO Q4H PRN PRN 08/21/23 Unknown Rx Pain 1-10 Or Fever #1 TAB diclofenac sodium 1 % topical gel 2 g topical BID #100 grams 08/21/23 Unknown Rx (Voltaren Arthritis Pain) gabapentin 100 mg capsule 100 mg PO 2100 #1 cap 08/21/23 Unknown Rx ascorbic acid (vitamin C) 500 mg 500 mg PO BID 01/01/24 Unknown History tablet (Vitamin C) losartan 50 mg tablet 50 mg PO .COMPLEX blood pressure 01/01/24 Unknown History magnesium 200 mg tablet 200 mg PO DAILY 01/01/24 Unknown History meloxicam 15 mg tablet 15 mg PO DAILY 01/01/24 Unknown History carvedilol 12.5 mg tablet 12.5 mg PO BIDCM 01/04/24 Unknown History atorvastatin 40 mg tablet 40 mg PO DAILY cholesterol 04/21/24 Unknown History d-mannose 500 mg capsule 500 mg PO BID 04/21/24 Unknown History hydrocodone-acetaminophen 5-325mg 1 tab PO Q6H PRN PRN Pain 3 days 04/21/24 Unknown Rx 5mg-325mg #10 TABLETS mxtnbjnm-qklo-thky 8 mg-folic 400 1 tab PO DAILY 04/21/24 Unknown History mcg-K 50 mcg-lutein 300 mcg tablet ([place] Women 50 Plus) Allergy/AdvReac Type Severity Reaction Status Date / Time bupropion (From Wellbutrin) Allergy Severe Anaphylaxis Verified 04/23/24 03:48 Penicillins (PCN) Allergy Severe Anaphylaxis Verified 04/23/24 03:48 cariprazine (From Vraylar) AdvReac Severe Delirium/severe Verified 04/23/24 03:48 agitation quetiapine (From Seroquel) AdvReac Severe Delirium/severe Verified 04/23/24 03:48 agitation levetiracetam (From Keppra) AdvReac Other Verified 04/23/24 03:48 Family History Aunt Cancer Sister Cancer Surgical History History of right mastectomy History of lumpectomy of right breast Social History household members: spouse housing: other details: One-story house with a basement. Laundry is upstairs number of children: 1 current occupational status: retired Smoking Status: Never smoker Electronic Cigarette Use: not used second hand exposure: No alcohol intake: current alcohol intake frequency: holidays/special occasions only substance use type: does not use ROS ROS ED Constitutional Constitutional ED: Denies chills or fever(s) Eyes Eyes: Denies change in vision or diplopia ENT ENT ED: Denies rhinorrhea or sore throat Cardiovascular Cardiovascular: Denies chest pain or palpitations Respiratory/Chest Respiratory/Chest: Denies cough or dyspnea Gastrointestinal Gastrointestinal: Reports nausea; Denies abdominal pain, diarrhea or vomiting Genitourinary Genitourinary ED: Denies dysuria or hematuria Musculoskeletal Musculoskeletal: Reports back pain; Denies neck pain Integumentary Denies abscess or rash Neurologic Neurologic: Reports other Details: Chronic left sided weakness from remote stroke ; Denies headache(s) or paresthesias EXAM Physical Exam Const Vital Signs: 04/23/24 03:48 04/23/24 03:52 04/23/24 05:47 Temperature 98.0 F Temperature Source Oral Pulse Rate 83 84 Respiratory Rate 18 18 Respiratory Effort Normal Non-Labored Respiratory Depth Normal Respiratory Pattern Normal Blood Pressure 151/80 H 136/63 H Blood Pressure Mean 103 87 Pulse Ox 95 95 93 Oxygen Delivery Method Room Air Room Air Room Air Oxygen Flow Rate (L/min) 04/23/24 05:50 04/23/24 05:53 04/23/24 07:00 Temperature Temperature Source Pulse Rate 82 Respiratory Rate 16 Respiratory Effort Respiratory Depth Respiratory Pattern Blood Pressure 162/85 H Blood Pressure Mean 110 Pulse Ox 85 94 97 Oxygen Delivery Method Room Air Nasal Cannula Nasal Cannula Oxygen Flow Rate (L/min) 2 2 Positive well nourished and well developed General Appearance ED: well developed and NAD HEENT Reports moist mucous membranes normocephalic and atraumatic Eyes PERRL and EOMs intact bilaterally Eyes Narrative: Maintains close eyes throughout most of the exam Neck full ROM and supple General: Negative for tenderness Chest Wall inspection of chest normal and palpation of chest normal Resp normal respiratory effort and clear to auscultation bilaterally Cardio regular rate, regular rhythm and no murmurs GI non-tender and non-distended Auscultation: normoactive bowel sounds Palpation: soft Back/Spine no CVA tenderness Back/Spine Narrative: Tenderness in the upper lumbar spine as well as the coccyx, without crepitance or deformity or obvious signs of outward trauma. Minimal tenderness throughout the rest of the thoracic spine. Rib cage nontender no splinting with deep inspiration. General Back: other Range of motion very limited due to back pain with trying to move Extremity normal to inspection General Extremety ED: Negative for edema, pulses abnormal or tenderness General Extremity: Negative for edema or pulses abnormal Neuro oriented x3, CN's II-XII intact bilaterally, moves all extremities, no focal motor deficits and no sensory deficits noted Neuro Narrative: Deep tendon reflexes symmetrically diminished bilaterally 1+ throughout, no clonus. Toes downgoing. Sensorium / Orientation: awake and alert Psych Mood & Affect: anxious Skin no rashes or lesions noted and no wounds MDM MDM MDM Narrative Medical decision making narrative: Gave the patient some pain and nausea medicine which helped. Based on my exam where she is tender, I first reviewed her prior ED visit which showed CT of the thoracic spine as well as a cervical spine. I reviewed those images as well as the reports. I think she would benefit from getting films of her lumbar spine which she is tender for me, in addition to her coccyx and sacrum which she is also tender. 2 views of the lumbar spine show multilevel degenerative abnormalities on my interpretation, radiology suspicious maybe there is a T10 fracture but this was not thought to be fractured on the CT couple days ago. 3 view x-ray of the sacrum/coccyx, interpretation shows what appears to be a normal coccyx. Radiology concerned that the sacrum may be fractured. They recommend a CT for further evaluation which is ordered as abdomen/pelvis with attention to the back in order to evaluate for fractures but also associated retroperitoneal hematoma if fracture is present, also because the patient started developing some lower abdominal discomfort. It is noted she has a mild leukocytosis this is actually lower than a couple days ago. Prior to going to CT, the patient was again vomiting after having 2 doses of Zofran so she was then given Reglan. On my interpretation the CT shows no acute fractures or retroperitoneal/intraperitoneal collections or signs of a bowel obstruction or any other obvious cause of her symptoms. She is not having any chest discomfort or dyspnea, and when she had the symptoms with her fall couple days ago, she had normal troponin ruling out acute coronary syndrome. At this time, I presume the cause of her nausea is her pain. They are both intractable, she is finally doing a little better after Reglan and Dilaudid but is somnolent as a result of those medications, still having pain and nausea, and I think admission is best. I did review the interpretation which I agree with. It is including a T10 fracture as well, therefore the patient probably does have a T10 fracture and that could explain her pain it is in the right location. Lab Data Attestation: I reviewed the patient's lab results. Labs: Laboratory Results - last 24 hr 04/23/24 04/23/24 04:23 04:33 WBC 14.1 H RBC 4.28 Hgb 13.2 Hct 39.7 MCV 92.8 MCH 30.8 MCHC 33.2 RDW Std Deviation 42.6 RDW Coeff of Kenisha 12.5 Plt Count 315 MPV 11.6 Immature Gran % (Auto) 0.600 Neut % (Auto) 83.5 H Lymph % (Auto) 9.5 L [place] % (Auto) 4.8 Eos % (Auto) 0.9 Baso % (Auto) 0.7 Absolute Neuts (auto) 11.8 H Absolute Lymphs (auto) 1.35 Nucleated RBC % 0 Sodium 136 Potassium 4.2 Chloride 107 Carbon Dioxide 25.0 Anion Gap 5 BUN 28 H Creatinine 1.05 H Estim Creat Clear Calc 49.33 Est GFR (MDRD) Af Amer 66 Est GFR (MDRD) Non-Af 54 L BUN/Creatinine Ratio 26.7 H Glucose 127 H Calcium 11.0 H Radiography Diagnostic Testing: Clinical Impression(s) from Imaging Studies Lumbar Spine X-Ray 04/23/24 04:06 IMPRESSION: Lower thoracic T10 vertebral body fracture possibly acute. No evidence of fracture or traumatic subluxation in the lumbar spine. Electronically Signed: Nicole Lopez MD at 6:18 EST , Sacrum and Coccyx X-Ray 04/23/24 04:50 IMPRESSION: Lower sacral fracture likely acute. CT may be helpful for further evaluation. Electronically Signed: Nicole Lopez MD at 6:14 EST Reading Location ID and State: [employer] / [place] Tel , Service support , Abdomen/Pelvis CT 04/23/24 07:02 IMPRESSION: 1. Acute fracture across the upper T10 vertebral body with 20% loss of the upper vertebral body height and minimal retropulsion of the posterior-superior corner fracture fragment. This is feasible for kyphoplasty patient has debilitating back pain referrable to this site. 2. Old fracture deformity of the sacrococcygeal junction and coccyx. 3. 3.1 cm nonenhancing low-attenuation lesion in the right anterior renal parenchyma with CT number of 19 Hounsfield units. ACR White Paper guidelines (Herts, et al. JACR 2018; 15(2):264-273) suggest no follow-up is necessary. 4. 1.4 cm low-attenuation lesion in the left posterior renal cortex. It is too small to confirm cystic or solid. ACR White Paper guidelines (Herts, et al. JACR 2018; 15(2):264-273) suggest no follow-up is necessary. 5. Sigmoid diverticulosis without diverticulitis. 6. Tubular calcifications in the left main coronary artery and LAD branch of the left coronary artery. Electronically Signed: Elan Tee MD at 8:43 EST , Management Discussion w/another healthcare provider: Hospitalist Discharge Plan Dx/Rx/DC Orders Clinical Impression: Intractable low back pain, Intractable vomiting, Hypercalcemia, Closed fracture of T10 vertebra Disposition Disposition: Acute Care Hospital [facility] Discharge Date/Time: 04/23/24 08:50
--- NOTE | 2024-04-23 04:06 | RAD_ITS ---
INDICATION: pain/fall EXAMINATION/TECHNIQUE: X-RAY - XR Spine Lumbar 2 or 3 Views COMPARISON: No relevant prior comparison study available FINDINGS: Lower thoracic T10 vertebral body compression fracture with approximately 25% vertebral body height loss likely acute. The lumbar vertebral bodies are normal in height. No definite fracture demonstrated. Anterior subluxation of L4 on L5. Disc space narrowing with osteophytes at multiple levels mostly at L5-S1. Facet arthropathy at multiple levels.. No paravertebral soft tissue mass identified. RAD/Lumbar Spine 2 or 3 Views IMPRESSION: Lower thoracic T10 vertebral body fracture possibly acute. No evidence of fracture or traumatic subluxation in the lumbar spine. Electronically Signed: Nicole Lopez MD at 6:18 EST ,
[2024-04-23 04:29] LABS: Absolute Lymphocyte Count 1.35 X10^3/uL (0.83-4.51); Absolute Neutrophil Count 11.8 X10^3/uL (2.0-7.7); Basophil% 0.7 % (0-1); Eosinophil# 0.13 X10^3/uL; Eosinophils% 0.9 % (0-5); Hematocrit 39.7 % (37-47); Hemoglobin 13.2 g/dL (12.0-15.0); Lymphocyte # 1.35 X10^3/ul (0.83-4.51); Lymphocyte % 9.5 % (19-41); Mean Corp Hgb Conc 33.2 g/dL (32-36); Mean Corpuscular Hgb 30.8 pg (27.0-32.0); Mean Corpuscular Volume 92.8 fL (81-99); Mean Platelet Vol. 11.6 fl (6.2-12.0); Monocyte# 0.68 X10^3/uL; Monocyte% 4.8 % (0-10); NRBC Flagged by Analyzer 0 % (0-5); Neutrophil # 11.79 X10^3/uL (2.7-7.7); Neutrophil % 83.5 % (47-70); Platelet Count 315 K/mm3 (150-450); RBC Distribution Width CV 12.5 % (11.6-14.6); RBC Distribution Width SD 42.6 fl (35.1-43.9); Red Blood Count 4.28 M/mm3 (4.2-5.4); White Blood Count 14.1 K/mm3 (4.4-11.0)
[2024-04-23] MEDS: Ondansetron 4 MG/2 ML Vial IV ×5 (04:36→20:23)
[2024-04-23] MEDS: Morphine 2 MG/ML Syringe IV (04:36)
--- NOTE | 2024-04-23 04:50 | RAD_ITS ---
INDICATION: pain/fall EXAMINATION/TECHNIQUE: X-RAY - XR Sacrum/Coccyx Min 2 Views COMPARISON: No relevant prior comparison study available FINDINGS: Irregularity suspicious for fracture of the mid to lower sacrum of uncertain age but likely acute. Minimal displacement. The sacroiliac joints are symmetric. Degenerative changes in the lower lumbar spine with anterolisthesis at L4-5. Surgical clips in the pelvis. RAD/Sacrum-Coccyx min 2 Views IMPRESSION: Lower sacral fracture likely acute. CT may be helpful for further evaluation. Electronically Signed: Nicole Lopez MD at 6:14 EST ,
[2024-04-23 04:54] LABS: Anion Gap 5 (5-15); BUN 28 mg/dL (7-18); BUN/Creat Ratio 26.7 RATIO (10-20); Chloride 107 mmol/L (98-107); Creatinine, Serum 1.05 mg/dL (0.55-1.02); EST Glomerular Filtration Rate 54 mL/min (>60); Est Glom Filt Rate - Afr Amer 66 mL/min (>60); Estimated Creatinine Clearance 49.33 ml/min; Glucose 127 mg/dL (74-106); Potassium 4.2 mmol/L (3.5-5.1); Sodium Level 136 mmol/L (136-145)
--- NOTE | 2024-04-23 07:02 | CT_ITS ---
EXAM: CT ABDOMEN AND PELVIS WITH INTRAVENOUS CONTRAST CLINICAL INDICATION: Lower abdominal pain and low back pain. Fall related trauma injury one day ago. Attention T10 and sacrum. TECHNIQUE: Helically acquired images were obtained of the abdomen and pelvis with intravenous contrast. This CT exam was performed using one or more of the following dose reduction techniques: automated exposure control, adjustment of the mA and/or kV according to patient size, and/or use of iterative reconstruction technique. CONTRAST: IV 100mL Isovue-370 RADIATION DOSE: CTDIvol = 26.06 mGy, DLP = 1135.07 mGy-cm COMPARISON: No relevant prior studies available. FINDINGS: LOWER THORAX: Bilateral posterior pleural thickening in the posterior lung bases. Curvilinear subsegmental atelectasis in the medial left lung base. Mild cardiomegaly. Tubular calcifications along the LAD branch and left main coronary artery. Normal pericardium. ABDOMEN: LIVER: Unremarkable. Homogeneous. No focal mass. GALLBLADDER AND BILE DUCTS: Unremarkable. No calcified gallstones. No gallbladder distention or wall edema. No intra- or extrahepatic biliary ductal dilation. PANCREAS: Unremarkable. No focal cystic or solid mass. SPLEEN: Unremarkable. Normal size without focal cystic or solid mass. ADRENALS: Unremarkable. No nodules. KIDNEYS AND URETERS: 3.1 cm nonenhancing low-attenuation lesion in the right anterior renal parenchyma with CT number of 19 Hounsfield units. No stones or hydronephrosis in the right kidney. Small nonenhancing low-attenuation lesion in the left posterior renal cortex measuring 1.14 cm. It is too small to confirm cystic or solid. No stones or hydronephrosis in the left kidney. STOMACH AND BOWEL: Small diverticula along the sigmoid colon without diverticulitis. No significant abnormality of the remainder of the colon. Normal small bowel. No stomach or bowel distention. PELVIS: APPENDIX: The appendix is not visualized but no secondary signs of acute appendicitis. BLADDER: Unremarkable. REPRODUCTIVE: Unremarkable as visualized. No mass. ABDOMEN and PELVIS: INTRAPERITONEAL SPACE: Unremarkable. No ascites or other fluid collection. No free air. BONES/JOINTS: Acute fracture across the upper T10 vertebral body with 20% loss of the upper vertebral body height. Minimal retropulsion of the posterior-superior corner of the fracture fragment. Old fracture deformity of the sacrococcygeal junction and coccyx. No suspicious lytic or blastic abnormality. SOFT TISSUES: Unremarkable. No discrete abdominal or pelvic wall hernia. VASCULATURE: Unremarkable. Abdominal aorta is non-dilated. LYMPH NODES: Unremarkable. No enlarged lymph nodes. CT/Abdomen/Pelvis W IV Cont ONLY IMPRESSION: 1. Acute fracture across the upper T10 vertebral body with 20% loss of the upper vertebral body height and minimal retropulsion of the posterior-superior corner fracture fragment. This is feasible for kyphoplasty patient has debilitating back pain referrable to this site. 2. Old fracture deformity of the sacrococcygeal junction and coccyx. 3. 3.1 cm nonenhancing low-attenuation lesion in the right anterior renal parenchyma with CT number of 19 Hounsfield units. ACR White Paper guidelines (Herts, et al. JACR 2018; 15(2):264-273) suggest no follow-up is necessary. 4. 1.4 cm low-attenuation lesion in the left posterior renal cortex. It is too small to confirm cystic or solid. ACR White Paper guidelines (Herts, et al. JACR 2018; 15(2):264-273) suggest no follow-up is necessary. 5. Sigmoid diverticulosis without diverticulitis. 6. Tubular calcifications in the left main coronary artery and LAD branch of the left coronary artery. Electronically Signed: Elan Tee MD at 8:43 EST ,
[2024-04-23] MEDS: HYDROmorphone 0.5 MG/0.5 ML SYRINGE IV ×4 (07:24→23:34)
[2024-04-23] MEDS: Metoclopramide 10 MG/2 ML Vial 5 MG IV (07:24)
[2024-04-23] MEDS: 0.9% Saline Lock 10 ML Syringe IV ×4 (09:57→23:34)
[2024-04-23] MEDS: 0.9% Normal Saline (1000mL) 1,000 ML 120 ML IV ×2 (09:57→18:42)
[2024-04-23] MEDS: Losartan Potassium 50 MG Tablet PO ×2 (10:35→20:22)
[2024-04-23] MEDS: Heparin Injection (Vial) 5,000 UNIT/ML VIAL 5000 UNIT SC ×2 (10:41→20:23)
--- NOTE | 2024-04-23 12:09 | CASEMGMT ---
Addendum entered by Abi Mcmullen 04/23/24 12:32: BARGER form explained re: Observation status for treatment of low back pain, nausea/vomiting.? Explained hospitalization will be paid per?her insurance policy for Outpatient billing?and condition will continue to be evaluated for Inpt necessity. Also let pt know that [facility] sends paper in the billing packet with their phone number if questions arise. Pt verbalizes understanding and does not have further questions. ?Form signed, copy made and placed in chart, and original given to pt. ? Addendum entered by Abi Mcmullen 04/23/24 12:26: Pt lives in a one-story home w/3 steps to enter. Pt aware to have therapy work w/her on steps when she is able to work with them/once dizziness subsides. Original Note: BELEN ASIF NOTE: BELEN ASIF to room. Introduced self and role. Pt resting in bed. Pt was unable to work w/therapy today d/t dizziness. Pt states she lives w/her , who assists her w/bathing and dressing. She has a shower chair. She does not use AD to ambulate, but does have a cane and walker @ home, if needed. She uses a CPAP. Pt does not drive, provides transportation. Pt uses O2 @ HS only @ 2 l/m from [facility]. She states she just finished OP therapy @ [facility] 02/10/24. She wishes to discharge home. PT/OT to work w/pt again tomorrow. Pt is not sure yet if she will need any additional therapy @ discharge, as she was only able to stand today/not able to ambulate d/t the dizziness. She is aware she can f/u with PCP if she is interested in HHC or OP therapy @ [facility]. Pt was made aware of homebound requirements for HHC. She states her daughter, 2 granddaughters, and son-in-law all live across the field, are supportive, and can help, if needed. She denies needs at this time. Follow for any needs at discharge. Tarun DURHAM RN, CM
[2024-04-23] MEDS: diazePAM 2 MG Tablet 4 MG PO (14:28)
[2024-04-23] MEDS: Carvedilol 12.5 MG Tablet PO (16:24)
--- NOTE | 2024-04-23 17:50 | PCM.HP.STD ---
HPI - General General Date of Admission: 04/23/24 Date of Service: 04/23/24 Chief Complaint: Low back pain, vertigo, nausea HPI Narrative GILBERTO CAMPBELL, is a 73 F who presents to the emergency room at [facility] after sustaining a fall yesterday and complaining of low back pain, she was examined yesterday due to vertiginous symptoms and given nausea medications and sent home. She returns today due to persistent nausea and low back pain. Labs obtained in the emergency room showed an elevated white blood cell count of 14.1, BUN was 28 and creatinine was 1.05, lumbar spine x-ray showed a T10 vertebral body fracture-however patient's thoracic spine CT that was performed 2 days ago do not show evidence of a fracture. X-rays of the patient's sacrum and coccyx today showed a lower sacral fracture which was likely acute, CTA of the abdomen and pelvis however did show an acute fracture across the upper T10 vertebral body with 20% loss of the upper vertebral body height. There was an old fracture deformity of the sacrococcygeal junction and coccyx. There were lesions noted in the left posterior renal cortex and right anterior renal parenchyma which did not require follow-up. Patient will be placed in observation status on MedSurg 3 for acute compression fracture of T10, I talked briefly with pain management tonight, they requested an MRI of the thoracic spine be ordered, patient will be put on IV pain medications and I will place the patient on Valium for vertigo. PT and OT will see the patient and evaluate. Patient will be seen by pain management on 04/25/2024. [facility] Medical History Coronary artery disease STEMI (ST elevation myocardial infarction) Sleep apnea Stroke/cerebrovascular accident Takotsubo cardiomyopathy Uncontrolled hypertension Eosinophilia, unspecified Osteoporosis Hemianopia of left eye Acute left hemiparesis Glaucoma Obesity (BMI 30.0-34.9) Osteoarthritis GERD (gastroesophageal reflux disease) Depression HTN (hypertension) Subarachnoid hemorrhage Ischemic cerebrovascular accident (CVA) Ulnar neuropathy at elbow of left upper extremity Tendonitis Left posterior interosseous nerve syndrome Gastric ulcer Left hand weakness History of breast cancer Major depressive disorder, recurrent episode, moderate Lesion of right radial nerve Home Medications ?Medication ?Instructions ?Recorded ?Last Taken ?Type latanoprost 0.005 % eye drops 1 drp EACH EYE QHS Eye drops 08/10/14 07/28/23 History omeprazole 20 mg capsule,delayed 20 mg PO DAILY GERD 08/30/20 07/29/23 History release alendronate 70 mg tablet 70 mg PO CHONG Bone health 07/06/23 Unknown History aspirin 81 mg tablet,delayed 81 mg PO BREAKFAST heart health #0 07/29/23 07/29/23 Rx release tabs nitroglycerin 0.4 mg sublingual 0.4 mg sublingual Q5M PRN 07/29/23 Unknown Rx tablet Cardiac/Chest Pain #0 tabs acetaminophen 325 mg tablet 650 mg (2 x 325 mg) PO Q4H PRN PRN 08/21/23 Unknown Rx Pain 1-10 Or Fever #1 TAB diclofenac sodium 1 % topical gel 2 g topical BID #100 grams 08/21/23 Unknown Rx (Voltaren Arthritis Pain) gabapentin 100 mg capsule 100 mg PO 2100 #1 cap 08/21/23 Unknown Rx ascorbic acid (vitamin C) 500 mg 500 mg PO BID 01/01/24 Unknown History tablet (Vitamin C) losartan 50 mg tablet 50 mg PO .COMPLEX blood pressure 01/01/24 Unknown History magnesium 200 mg tablet 200 mg PO DAILY 01/01/24 Unknown History meloxicam 15 mg tablet 15 mg PO DAILY 01/01/24 Unknown History carvedilol 12.5 mg tablet 12.5 mg PO BIDCM 01/04/24 Unknown History atorvastatin 40 mg tablet 40 mg PO DAILY cholesterol 04/21/24 Unknown History d-mannose 500 mg capsule 500 mg PO BID 04/21/24 Unknown History hydrocodone-acetaminophen 5-325mg 1 tab PO Q6H PRN PRN Pain 3 days 04/21/24 Unknown Rx 5mg-325mg #10 TABLETS xyncjsoi-hbcu-pnpy 8 mg-folic 400 1 tab PO DAILY 04/21/24 Unknown History mcg-K 50 mcg-lutein 300 mcg tablet ([facility] Women 50 Plus) Allergy/AdvReac Type Severity Reaction Status Date / Time bupropion (From Wellbutrin) Allergy Severe Anaphylaxis Verified 04/23/24 03:48 Penicillins (PCN) Allergy Severe Anaphylaxis Verified 04/23/24 03:48 cariprazine (From Vraylar) AdvReac Severe Delirium/severe Verified 04/23/24 03:48 agitation quetiapine (From Seroquel) AdvReac Severe Delirium/severe Verified 04/23/24 03:48 agitation levetiracetam (From Keppra) AdvReac Other Verified 04/23/24 03:48 Family History Aunt Cancer Sister Cancer Surgical History History of right mastectomy History of lumpectomy of right breast Social History household members: spouse housing: other details: One-story house with a basement. Laundry is upstairs number of children: 1 current occupational status: retired Smoking Status: Never smoker Electronic Cigarette Use: not used second hand exposure: No alcohol intake: current alcohol intake frequency: holidays/special occasions only substance use type: does not use ROS Constitutional Constitutional: Denies anorexia, change in weight, chills, fatigue, fever(s), night sweats or weakness Eyes Eyes: Denies blurry vision, change in vision, discharge from eye(s) or eye pain Cardiovascular Cardiovascular: Denies chest pain, claudication, edema or palpitations Respiratory/Chest Respiratory/Chest: Denies cough, hemoptysis, shortness of breath at rest or shortness of breath with exertion Gastrointestinal Gastrointestinal: Reports nausea; Denies abdominal pain, constipation, diarrhea, hematemesis, hematochezia, melena or vomiting Genitourinary Genitourinary: Denies dysuria, hematuria, urinary frequency, urinary hesitancy, urinary incontinence or urinary urgency Musculoskeletal Musculoskeletal: Reports back pain; Denies joint pain, joint stiffness, joint swelling, myalgias or neck pain Neurologic Neurologic: Reports dizziness; Denies abnormal gait, abnormal speech, focal weakness, headache(s), loss of vision, numbness, other visual disturbances, paresthesias, syncope or tingling Psychiatric Psychiatric: Denies anxiety, cognitive impairment, depression, irritability, mood swings or suicidal ideation Endocrine Endocrinology: Denies change in body appearance, cold intolerance, excessive sweating, heat intolerance, polydipsia or polyuria Hematologic/Lymphatic Hematologic/Lymphatic: Denies none, anemia, easy bleeding, easy bruising or lymphadenopathy Allergic/Immunologic Allergic/Immunologic: Denies rhinitis, urticaria, eczemia or asthma Vital Signs Vital Signs Vital Signs: 04/23/24 03:48 04/23/24 03:52 04/23/24 05:47 Temperature 98.0 F Temperature Source Oral Pulse Rate 83 84 Pulse Strength Respiratory Rate 18 18 Respiratory Effort Normal Non-Labored Respiratory Depth Normal Respiratory Pattern Normal Blood Pressure 151/80 H 136/63 H Blood Pressure Mean 103 87 Blood Pressure Source Blood Pressure Position Blood Pressure Location Pulse Ox 95 95 93 Oxygen Delivery Method Room Air Room Air Room Air Oxygen Flow Rate (L/min) 04/23/24 05:50 04/23/24 05:53 04/23/24 07:00 Temperature Temperature Source Pulse Rate 82 Pulse Strength Respiratory Rate 16 Respiratory Effort Respiratory Depth Respiratory Pattern Blood Pressure 162/85 H Blood Pressure Mean 110 Blood Pressure Source Blood Pressure Position Blood Pressure Location Pulse Ox 85 94 97 Oxygen Delivery Method Room Air Nasal Cannula Nasal Cannula Oxygen Flow Rate (L/min) 2 2 04/23/24 08:12 04/23/24 09:02 04/23/24 09:22 Temperature 98 F 97.8 F Temperature Source Oral Pulse Rate 89 72 Pulse Strength Respiratory Rate 16 18 Respiratory Effort Normal Non-Labored Respiratory Depth Normal Respiratory Pattern Normal Blood Pressure 160/78 H 127/75 H Blood Pressure Mean 105 92 Blood Pressure Source Monitor Blood Pressure Position Semi-Fowlers Blood Pressure Location Left Arm Pulse Ox 96 99 Oxygen Delivery Method Nasal Cannula Nasal Cannula Oxygen Flow Rate (L/min) 2 2 04/23/24 10:00 04/23/24 11:02 04/23/24 11:05 Temperature Temperature Source Pulse Rate Pulse Strength Normal (2+) Respiratory Rate Respiratory Effort Respiratory Depth Respiratory Pattern Blood Pressure Blood Pressure Mean Blood Pressure Source Blood Pressure Position Blood Pressure Location Pulse Ox Oxygen Delivery Method Nasal Cannula Oxygen Flow Rate (L/min) 2 2 04/23/24 14:12 Temperature 98.4 F Temperature Source Oral Pulse Rate 74 Pulse Strength Respiratory Rate 16 Respiratory Effort Respiratory Depth Respiratory Pattern Blood Pressure 137/68 H Blood Pressure Mean 91 Blood Pressure Source Monitor Blood Pressure Position Semi-Fowlers Blood Pressure Location Left Arm Pulse Ox 97 Oxygen Delivery Method Nasal Cannula Oxygen Flow Rate (L/min) 2 Weight Weight: 86.409 kg Body Mass Index (BMI) 34.8 Physical Exam Const alert, oriented x3 and no apparent distress Constitutional Narrative: Patient is unable to sit up without significant back discomfort General Appearance: cooperative, well kempt and well developed Orientation / Consciousness: awake, oriented to person, oriented to place and oriented to time HEENT normocephalic, head/scalp atraumatic, hearing grossly normal bilaterally and moist oral mucous membranes Eyes PERRL, EOMs intact bilaterally and conjunctivae normal Neck supple, no JVD, thyroid normal and no carotid bruits General: trachea midline Resp normal respiratory effort, no retractions, no use of accessory muscles and clear to auscultation bilaterally Auscultation: Negative for rales, rhonchi or wheezes Cardio regular rate, regular rhythm, S1 normal heart sound, S2 normal heart sound, no murmurs, no rub and no gallops GI normal to inspection, nondistended, normoactive bowel sounds, soft to palpation, non-tender and non-distended Extremity no clubbing, cyanosis or edema Skin no rashes or lesions noted General Skin Exam: no breakdown Neuro oriented x3, CN's II-XII intact bilaterally and no sensory deficits noted Neuro Narrative: Patient has left-sided weakness in her upper and lower extremities as compared to her right Sensorium / Orientation: awake and alert Speech: speech normal Psych affect normal Results Lab / Micro Data 04/23/24 04:23 04/23/24 04:33 Labs: Laboratory Results - last 24 hr 04/23/24 04:23: WBC 14.1 H, RBC 4.28, Hgb 13.2, Hct 39.7, MCV 92.8, MCH 30.8, MCHC 33.2, RDW Std Deviation 42.6, RDW Coeff of Kenisha 12.5, Plt Count 315, MPV 11.6, Immature Gran % (Auto) 0.600, Neut % (Auto) 83.5 H, Lymph % (Auto) 9.5 L, Dubois % (Auto) 4.8, Eos % (Auto) 0.9, Baso % (Auto) 0.7, Absolute Neuts (auto) 11.8 H, Absolute Lymphs (auto) 1.35, Nucleated RBC % 0 04/23/24 04:33: Sodium 136, Potassium 4.2, Chloride 107, Carbon Dioxide 25.0, Anion Gap 5, BUN 28 H, Creatinine 1.05 H, Estim Creat Clear Calc 49.33, Est GFR (MDRD) Af Amer 66, Est GFR (MDRD) Non-Af 54 L, BUN/Creatinine Ratio 26.7 H, Glucose 127 H, Calcium 11.0 H Imaging Radiology Impression Lumbar Spine X-Ray 04/23/24 04:06 IMPRESSION: Lower thoracic T10 vertebral body fracture possibly acute. No evidence of fracture or traumatic subluxation in the lumbar spine. Electronically Signed: Nicole Lopez MD at 6:18 EST , Sacrum and Coccyx X-Ray 04/23/24 04:50 IMPRESSION: Lower sacral fracture likely acute. CT may be helpful for further evaluation. Electronically Signed: Nicole Lopez MD at 6:14 EST , Abdomen/Pelvis CT 04/23/24 07:02 IMPRESSION: 1. Acute fracture across the upper T10 vertebral body with 20% loss of the upper vertebral body height and minimal retropulsion of the posterior-superior corner fracture fragment. This is feasible for kyphoplasty patient has debilitating back pain referrable to this site. 2. Old fracture deformity of the sacrococcygeal junction and coccyx. 3. 3.1 cm nonenhancing low-attenuation lesion in the right anterior renal parenchyma with CT number of 19 Hounsfield units. ACR White Paper guidelines (Herts, et al. JACR 2018; 15(2):264-273) suggest no follow-up is necessary. 4. 1.4 cm low-attenuation lesion in the left posterior renal cortex. It is too small to confirm cystic or solid. ACR White Paper guidelines (Herts, et al. JACR 2018; 15(2):264-273) suggest no follow-up is necessary. 5. Sigmoid diverticulosis without diverticulitis. 6. Tubular calcifications in the left main coronary artery and LAD branch of the left coronary artery. Electronically Signed: Elan Tee MD at 8:43 EST , Assessment & Plan Assessment/Plan (1) Closed fracture of T10 vertebra: PLAN: Plan 1. Acute compression fracture of T10 secondary to osteoporosis-patient was placed in observation status on MedSurg 3, IV pain medication will be administered and oral pain medication will be administered, patient will be seen by pain management for consultation and treatment, patient will have an MRI of her thoracic spine to verify that this is an acute fracture. Patient will be seen by PT and OT. #2 vertigo with nausea and vomiting-patient will be placed on Valium 4 mg 3 times a day to help with her vertigo, IV nausea medication will be administered as needed #3 Coronary artery disease-patient will remain on her home medications #4 essential hypertension-patient will remain on her current medications #5 hyperlipidemia-patient is on atorvastatin #6 cerebrovascular disease-patient has residual left-sided weakness and uses a walker Total clinical time spent by myself addressing the patient's medical issues, reviewing all of her data, and collaborating with patient's care team: 55 minutes Charges/Coding Visit Charges Inpatient E&M: 63357 Init Hosp L2
[2024-04-23] MEDS: diazePAM 2 MG Tablet PO (20:22)
[2024-04-23] MEDS: Latanoprost 0.005% 1 Bottle 1 DRP EACH EYE (22:25)
[2024-04-24] MEDS: Ondansetron 4 MG/2 ML Vial IV ×4 (02:43→21:24)
[2024-04-24] MEDS: 0.9% Saline Lock 10 ML Syringe IV ×4 (02:43→21:24)
[2024-04-24] MEDS: HYDROmorphone 0.5 MG/0.5 ML SYRINGE IV ×2 (02:49→08:09)
[2024-04-24 03:00] VITALS: BP 143/71; PULSE 76; RESP 14; TEMP 36.7; O2SAT 94
[2024-04-24] MEDS: diazePAM 2 MG Tablet PO ×3 (05:45→21:23)
[2024-04-24 07:10] VITALS: O2SAT 93
[2024-04-24 07:52] VITALS: BP 122/54; PULSE 72; RESP 16; TEMP 36.6; O2SAT 93
[2024-04-24] MEDS: Carvedilol 12.5 MG Tablet PO ×2 (08:11→16:24)
[2024-04-24] MEDS: Losartan Potassium 50 MG Tablet PO ×2 (09:55→21:24)
[2024-04-24] MEDS: Heparin Injection (Vial) 5,000 UNIT/ML VIAL 5000 UNIT SC ×2 (10:02→21:24)
[2024-04-24] MEDS: HYDROmorphone 1 MG/ML Syringe IV ×3 (12:35→21:24)
[2024-04-24 14:16] VITALS: BP 137/81; PULSE 86; RESP 16; TEMP 37; O2SAT 95
--- NOTE | 2024-04-24 16:03 | PCM.PN.HOSP ---
Reason for Visit Reason for Visit: Diagnoses Unspecified fracture of T9-T10 vertebra, initial encounter for closed fracture (04/23/24) Subjective Subjective Patient was seen and examined today, she is still having quite a bit of back pain and is unable to ambulate. Patient has an MRI ordered for tomorrow and will see pain management tomorrow. Objective Data Objective Data Vital Signs: Vital Signs Temp Pulse Resp BP Pulse Ox O2 Del Method O2 Flow Rate 98.6 F 86 16 137/81 H 95 Room Air 2 04/24/24 14:16 04/24/24 14:16 04/24/24 14:16 04/24/24 14:16 04/24/24 14:16 04/24/24 14:16 04/23/24 20:00 Oxygen Flow Rate (L/min) 2 Oxygen Delivery Method Room Air Weight: 86.409 kg Body Mass Index (BMI) 34.8 Intake & Output: Intake and Output for Last 24 Hours 04/22/24 04/23/24 04/24/24 23:59 23:59 23:59 Intake Total 1000 / 1000 1000 / 1000 Balance 1000 / 1000 1000 / 1000 Lab / Micro Data 04/23/24 04:23 04/23/24 04:33 Physical Exam Narrative alert, oriented x3 and no apparent distress Constitutional Narrative: Patient is unable to sit up without significant back discomfort General Appearance: cooperative, well kempt and well developed Orientation / Consciousness: awake, oriented to person, oriented to place and oriented to time HEENT normocephalic, head/scalp atraumatic, hearing grossly normal bilaterally and moist oral mucous membranes Eyes PERRL, EOMs intact bilaterally and conjunctivae normal Neck supple, no JVD, thyroid normal and no carotid bruits General: trachea midline Resp normal respiratory effort, no retractions, no use of accessory muscles and clear to auscultation bilaterally Auscultation: Negative for rales, rhonchi or wheezes Cardio regular rate, regular rhythm, S1 normal heart sound, S2 normal heart sound, no murmurs, no rub and no gallops GI normal to inspection, nondistended, normoactive bowel sounds, soft to palpation, non-tender and non-distended Extremity no clubbing, cyanosis or edema Skin no rashes or lesions noted General Skin Exam: no breakdown Neuro oriented x3, CN's II-XII intact bilaterally and no sensory deficits noted Neuro Narrative: Patient has left-sided weakness in her upper and lower extremities as compared to her right Sensorium / Orientation: awake and alert Speech: speech normal Psych affect normal Assessment & Plan Assessment/Plan (1) Closed fracture of T10 vertebra: PLAN: Plan 1. Acute compression fracture of T10 secondary to osteoporosis-I have elected to increase the patient's IV pain medication, patient is less dizzy today than she was yesterday. #2 vertigo with nausea and vomiting-patient is currently on Valium 2 mg 4 times a day for vertiginous symptoms #3 Coronary artery disease-patient will remain on her home medications #4 essential hypertension-patient will remain on her current medications #5 hyperlipidemia-patient is on atorvastatin #6 cerebrovascular disease-patient has residual left-sided weakness and uses a walker Total clinical time spent by myself addressing the patient's medical issues, reviewing all of her data, and collaborating with patient's care team: 35 minutes Charges/Coding Visit Charges Inpatient E&M: 43318 Subs Hosp L2
[2024-04-24] MEDS: Latanoprost 0.005% 1 Bottle 1 DRP EACH EYE (21:24)
[2024-04-24 21:49] VITALS: BP 150/85; PULSE 96; RESP 16; TEMP 36.8; O2SAT 94
[2024-04-25] MEDS: 0.9% Saline Lock 10 ML Syringe IV ×4 (00:28→20:33)
[2024-04-25] MEDS: HYDROmorphone 0.5 MG/0.5 ML SYRINGE IV ×2 (00:29→10:43)
[2024-04-25 02:00] VITALS: BP 119/60; PULSE 72; RESP 15; TEMP 36.7; O2SAT 99
[2024-04-25] MEDS: oxyCODONE 5 MG Tablet PO ×4 (02:15→18:45)
[2024-04-25] MEDS: Ondansetron 4 MG/2 ML Vial IV ×4 (02:15→20:42)
[2024-04-25] MEDS: diazePAM 2 MG Tablet PO ×2 (05:20→14:27)
--- NOTE | 2024-04-25 06:35 | NURSING ---
PT TOLERATING LYING ON LEFT SIDE PROPPED W/PILLOWS AND PILLOW BETWEEN HER KNEES. OXYCODONE GIVEN FOR 4/10 PAIN. PT A&OX3 THIS AM
[2024-04-25 07:27] VITALS: BP 136/58; PULSE 62; RESP 16; TEMP 36.6; O2SAT 92
--- NOTE | 2024-04-25 07:30 | MRI_ITS ---
EXAM: MR THORACIC SPINE WITHOUT INTRAVENOUS CONTRAST CLINICAL INDICATION: Compression fracture T10 TECHNIQUE: Multiplanar and multisequence MR images of the thoracic spine without intravenous contrast. COMPARISON: CT abdomen pelvis 04/23/2024, is a thoracic spine 04/23/2024 FINDINGS: VERTEBRAE: Deformity of the T10 vertebral body again noted associated with bone marrow edema consistent with acute burst-type fracture. Bone marrow edema extending to the pedicles bilaterally. T10 fracture results in approximately 30-35% loss in vertebral body height. Alignment of the thoracic vertebral bodies is normal. No subluxation. There is preservation of the normal thoracic kyphosis. No scoliosis. DISCS/SPINAL CANAL/NEURAL FORAMINA: Approximately 4 mm retropulsion causes mild narrowing of the spinal canal. Remainder of the spinal canal is normal. AP dimension of the spinal canal at the T10 fracture is 7 mm. Neural foramina are intact. SPINAL CORD: Normal. Normal in signal and morphology. Normal conus medullaris. SOFT TISSUES: Normal. LUNGS AND PLEURAL SPACES: Small bilateral pleural effusions. MRI/Spine Thoracic (Routine) IMPRESSION: 1. Acute burst fracture of the T10 vertebral body with approximately 4 mm of retropulsion. 2. No evidence of epidural hematoma or cord contusion. Electronically Signed: Abel Gutierrez MD at 9:27 EST ,
--- NOTE | 2024-04-25 08:31 | PN.HOSP_ITS ---
Reason for Visit Reason for Visit: Diagnoses Unspecified fracture of T9-T10 vertebra, initial encounter for closed fracture (04/23/24) Subjective Subjective Complaining of pain 5 out of 5. Nursing states that she thought she was at her high school earlier today. Objective Data Objective Data Vital Signs: Vital Signs Temp Pulse Resp BP Pulse Ox O2 Del Method O2 Flow Rate 36.7 C 72 15 119/60 99 Nasal Cannula 2 04/25/24 02:00 04/25/24 02:00 04/25/24 02:00 04/25/24 02:00 04/25/24 02:00 04/25/24 08:04 04/25/24 08:04 Oxygen Flow Rate (L/min) 2 Oxygen Delivery Method Nasal Cannula Weight: 86.409 kg Body Mass Index (BMI) 34.8 Intake & Output: Intake and Output for Last 24 Hours 04/23/24 04/24/24 04/25/24 23:59 23:59 23:59 Intake Total 1000 / 1000 1000 / 1000 Balance 1000 / 1000 1000 / 1000 Lab / Micro Data 04/23/24 04:23 04/23/24 04:33 Physical Exam Const Constitutional Narrative: listless. afebrile. HEENT head/scalp atraumatic and moist oral mucous membranes Resp normal respiratory effort and no retractions Extremity normal to inspection, full ROM and no clubbing, cyanosis or edema Neuro moves all extremities, no focal motor deficits and no sensory deficits noted Sensorium / Orientation: awake Assessment & Plan Assessment/Plan (1) Closed fracture of T10 vertebra: PLAN: Plan Acute T10 vertebral compression fracture * Noted on thoracic MRI. * Pain management to see * Pain control: PRN oxy, scheduled acetaminophen and lidocaine patch * 25-hydroxy vitamin D low, replace with ergocalciferol Vertigo * add PRN meclizine * dc scheduled diazepam given confusion Toxic encephalopathy * thought she was in her high school earlier today * dc IV hydromorphone, scheduled diazapam. VTE prophylaxis: SQ heparin Charges/Coding Visit Charges Inpatient E&M: 08412 Subs Hosp L2
[2024-04-25 09:46] LABS: Vitamin D,25 Hydroxy 28.9 ng/mL
[2024-04-25 10:00] VITALS: BP 137/63; PULSE 70; RESP 16; TEMP 36.7; O2SAT 100
[2024-04-25] MEDS: Heparin Injection (Vial) 5,000 UNIT/ML VIAL 5000 UNIT SC (10:20)
[2024-04-25] MEDS: Carvedilol 12.5 MG Tablet PO ×2 (10:20→17:52)
[2024-04-25] MEDS: Losartan Potassium 50 MG Tablet PO ×2 (10:20→20:32)
[2024-04-25] MEDS: Meclizine 12.5 MG Tablet PO (12:58)
[2024-04-25 14:34] VITALS: BP 120/57; PULSE 72; RESP 16; TEMP 36.6; O2SAT 94
[2024-04-25] MEDS: Acetaminophen 500 MG Tablet 1000 MG PO ×2 (15:50→20:32)
[2024-04-25] MEDS: Lidocaine 5% Patch 1 PATCH TOPICAL (15:50)
[2024-04-25] MEDS: Ergocalciferol 1.25 MG (50, 000 UNIT) Capsule PO (17:52)
[2024-04-25 20:00] VITALS: BP 152/75; PULSE 81; RESP 14; TEMP 36.4; O2SAT 98
[2024-04-25] MEDS: Latanoprost 0.005% 1 Bottle 1 DRP EACH EYE (20:33)
[2024-04-25] MEDS: DiphenhydrAMINE 25 MG Capsule PO ×2 (20:42→22:23)
[2024-04-25] MEDS: 0.9% Normal Saline (500mL Bag) 500 ML 15 ML IV (22:07)
[2024-04-26] VITALS (14 sets, daily range): BP systolic 133–150; BP diastolic 67–99; PULSE 62–90; RESP 15–20; TEMP 36.1–36.7; O2SAT 92–100; BMI 34.8
--- NOTE | 2024-04-26 | IMM_PTH ---
PATIENT: GILBERTO CAMPBELL LOC: MS3 U#:[id number] AGE/SX: 73/F ROOM: NC318 RE04/23/[address]: Dr. Bo Fong DO : 1950 BED: 1 DIS: 04/27/2024 SPEC #: [id number] RECD: 04/28/24 11:51 STATUS: PEMA REEsau #: [id number] HIRA: 04/26/24 00:[address]: Vivek Figueroa DEPT: IMMUNOHISTOCHEMISTRY RECD BY: Justyn Bryant ENTERED: 04/28/24 11:51 SP TYPE: IMMUNO OTHR DR: DO Dr. Bo Escobedo MD Dr. Mark Tereletsky, DO Tissues: Vertebra, NOS Procedures: CK8 (add) Pankeratin (initial) PHYSICIAN & INSTITUTION [place] [id number] SPECIMEN INFORMATION: Tissue Source: Thoracic 10 bone biopsy Clinical Info: Acute thoracic compression fracture Specimen Number: [id number] CPT code: 62463,59003 METHODOLOGY: Deparaffinized sections of prefer/formalin-fixed tissue or PAP/DQ stained slides are incubated with monoclonal/polyclonal antibodies/oligonucleotide probes. Localization is made via biotin free immunoperoxidase method. Appropriate controls are performed and reacted as expected. Results on target cell population are indicated in the following table: RESULTS: ANTIBODY / CLONE RESULT AE1-3 (AE1/AE3/PCK26) negative CK8 ([id number]) negative These tests were developed and their performance characteristics determined by [facility]. They may not have been cleared or approved by the U.S. Food and Drug Administration. The FDA has determined that such clearance or approval is not necessary. The above immunohistochemical/dualISH markers are ordered and reviewed by the Pathologist. INTERPRETATION: Thoracic 10, bone biopsy: Negative for malignancy. 04/29/2024
[2024-04-26] MEDS: Acetaminophen 500 MG Tablet 1000 MG PO ×2 (03:51→20:13)
[2024-04-26] MEDS: oxyCODONE 5 MG Tablet PO ×4 (03:52→20:41)
[2024-04-26] MEDS: Ondansetron 4 MG/2 ML Vial IV ×2 (03:52→20:13)
[2024-04-26] MEDS: 0.9% Saline Lock 10 ML Syringe IV ×3 (03:52→20:13)
--- NOTE | 2024-04-26 07:27 | PN.HOSP_ITS ---
Reason for Visit Reason for Visit: Diagnoses Unspecified fracture of T9-T10 vertebra, initial encounter for closed fracture (04/23/24) Subjective Subjective still having significant pain. No longer confused. Objective Data Objective Data Vital Signs: Vital Signs Temp Pulse Resp BP Pulse Ox O2 Del Method O2 Flow Rate 36.3 C L 71 16 148/77 H 98 Room Air 2 04/26/24 04:00 04/26/24 04:00 04/26/24 04:00 04/26/24 04:00 04/26/24 04:00 04/26/24 04:00 04/25/24 10:00 Oxygen Flow Rate (L/min) 2 Oxygen Delivery Method Room Air Weight: 86.409 kg Body Mass Index (BMI) 34.8 Intake & Output: Intake and Output for Last 24 Hours 04/24/24 04/25/24 04/26/24 23:59 23:59 23:59 Intake Total 1000 / 1000 13.25 / 13.25 100 / 100 Balance 1000 / 1000 13.25 / 13.25 100 / 100 Lab / Micro Data 04/23/24 04:23 04/23/24 04:33 Labs: Laboratory Results - last 24 hr 04/25/24 08:55: Vitamin D 25-Hydroxy 28.9 Radiography Diagnostic Testing: Radiology Impression Thoracic Spine MRI 04/25/24 07:30 IMPRESSION: 1. Acute burst fracture of the T10 vertebral body with approximately 4 mm of retropulsion. 2. No evidence of epidural hematoma or cord contusion. Electronically Signed: Abel Gutierrez MD at 9:27 EST , Physical Exam Const alert, oriented x3 and no apparent distress HEENT head/scalp atraumatic and moist oral mucous membranes Resp normal respiratory effort, no retractions, no use of accessory muscles and clear to auscultation bilaterally Cardio regular rate, regular rhythm, S1 normal heart sound and S2 normal heart sound GI normal to inspection, nondistended, normoactive bowel sounds, soft to palpation, non-tender and non-distended Neuro Sensorium / Orientation: awake and alert Assessment & Plan Assessment/Plan (1) Closed fracture of T10 vertebra: PLAN: Plan Acute T10 vertebral compression fracture * Noted on thoracic MRI. * Pain management to perform kyphoplasty today * Pain control: PRN oxy, scheduled acetaminophen and lidocaine patch * 25-hydroxy vitamin D low, replace with ergocalciferol Vertigo * add PRN meclizine * dc scheduled diazepam given confusion Toxic encephalopathy * Resolved. Continue to hold IV hydromorphone, scheduled diazapam. VTE prophylaxis: SQ heparin Charges/Coding Visit Charges Inpatient E&M: 58974 Subs Hosp L2
[2024-04-26] MEDS: Losartan Potassium 50 MG Tablet PO ×2 (08:55→20:14)
[2024-04-26] MEDS: Carvedilol 12.5 MG Tablet PO (08:55)
--- NOTE | 2024-04-26 09:26 | NURSING ---
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
[2024-04-26] MEDS: Sodium Chloride 0.65% 1 SPRAY SPRAY.BTL NASAL (12:21)
--- NOTE | 2024-04-26 13:37 | PCM.PRE.AN2 ---
ASA Classification* ASA Classification ASA Classification: 3 Assessment & Plan Anesthesia* Anesthesia Assessment Anesthesia Assessment: Discussed sedation and/or anesthesia options, risks, benefits, and alternatives with patient/parents/legal guardian/POA. Questions invited. The patient/parents/legal guardian/POA seems to understand and agrees to proceed with anesthesia plan. Reviewed the physical assessment, medical history, allergy history and patient home medications list prior to surgery/procedure/anesthetic and documented any changes. Performed airway and anesthesia risk assessments. Anesthesia Type Anesthesia Type: MAC History Source History Obtained from:: Patient and Chart Anesthesia Focused Assessment* Temperature: 98.1 F Pulse Rate: 63 Blood Pressure: 137/69 Respiratory Rate: 18 Pulse Ox: 98 Oxygen Delivery Method: Nasal Cannula (Uses oxygen at night only.) Airway Assessment Mouth opens: >3 cm Mallampati Score: IV Teeth Condition: Intact Neck Range of motion (ROM): Limited ROM Focused Labs Anesthesia Preop lab: CBC WBC 14.1 K/mm3 (4.4-11.0) H 04/23/24 04:23 RBC 4.28 M/mm3 (4.2-5.4) 04/23/24 04:23 Hgb 13.2 g/dL (12.0-15.0) 04/23/24 04:23 Hct 39.7 % (37-47) 04/23/24 04:23 Plt Count 315 K/mm3 (150-450) 04/23/24 04:23 CHEMISTRY Potassium 4.2 mmol/L (3.5-5.1) 04/23/24 04:33 Sodium 136 mmol/L (136-145) 04/23/24 04:33 Magnesium 2.1 mg/dL (1.6-2.6) 01/01/24 00:27 Phosphorus 3.0 mg/dL (2.5-4.9) 08/18/23 05:57 BUN 28 mg/dL (7-18) H 04/23/24 04:33 Creatinine 1.05 mg/dL (0.55-1.02) H 04/23/24 04:33 Glucose 127 mg/dL (74-106) H 04/23/24 04:33 POC Glucose 123 mg/dL (74-106) H 08/05/23 08:56 TSH 1.87 uIU/mL (0.358-3.74) 07/26/23 06:00 COAG PT 13.0 SECONDS (11.7-14.9) 06/23/23 07:25 Pre-Assessment Diagnosis/Proposed Procedure Planned Operative Procedure(s): Kyphoplasty, T10 Anesthesia History 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 When Was Last Pacemaker Check QUESTION #4 FULL TEXT: You/Your Family Experience fever (hyperthermia) with Anesthesia Last Oral Intake Last Oral intake: Last Oral Intake NPO since 00:00 04/26/24 12:51 Meds taken in AM with sips of Yes 04/26/24 12:51 water? Meds patient instructed to oxycodone, tylenol, losartan 04/26/24 12:51 take am of surgery , coreg Any additional information?: Yes Meds taken in AM with sips of water?: Yes PONV PONV - manufacturing leader: PONV - manufacturing leader Female HX of Motion Sickness HX of N/V After Surgery Non-Smoker Duration of Surgery greater than 60 minutes Number of Risk Factors PONV Score Height & Weight Height & Weight: Anesthesia: Height & Weight Height 5 ft 2 in 04/26/24 12:51 Weight: 86.409 kg 04/26/24 12:51 Body Mass Index (BMI) 34.8 04/26/24 12:51 Respiratory Assessment Respiratory Assessment - manufacturing leader: Respiratory Tract Infection Hx - manufacturing leader Hx Respiratory Tract Infection No 04/26/24 04:07 STOP Sleep Apnea STOP Sleep Apnea - manufacturing leader: STOP Sleep Apnea - manufacturing leader Hx Hypertension Yes 04/23/24 11:05 Hx Sleep Apnea Yes 04/23/24 09:11 CPAP No 04/23/24 09:11 BIPAP No 04/23/24 09:11 Do you snore loudly (louder than talking or can be heard Do you often feel tired/ fatigued/ sleepy during daytime? Has anyone observed you stop breathing during sleep? STOP Results Positive 04/23/24 09:11 QUESTION #5 FULL TEXT : Do you snore loudly (louder than talking or can be heard through closed doors)? 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 Specify any problems Hx of Preganancy in last 3 No 04/23/24 09:11 Months Nurse Filling Out Transfusion SHESS 04/23/24 09:11 & Questions: Date: 04/23/24 04/23/24 09:11 Time: 09:14 04/23/24 09:11 Patient unable to answer at this time (ie. confused, unrespo /Reproduction History /Reproductive History - manufacturing leader: /Reproductive Hx- manufacturing leader Hx Now No 04/26/24 04:07 Gestational Age (in weeks): EDC: Hx Hx Para Hx Section SAB No 04/26/24 04:07 Active Medications Active Medications: Current Medications Generic Name Dose Route Start Last Admin Trade Name Freq PRN Reason Stop Dose Admin Acetaminophen 1,000 mg 04/25/24 14:30 04/26/24 03:51 Acetaminophen 500 Mg Tablet PO 1,000 mg Q8 ELIANA Administration Carvedilol 12.5 mg 04/23/24 17:00 04/26/24 08:55 Carvedilol 12.5 Mg Tablet PO 12.5 mg BIDCM ELIANA Administration Protocol Ergocalciferol 1.25 mg 04/25/24 14:45 04/25/24 17:52 Ergocalciferol 1.25 Mg (50, 000 Unit) Capsule PO 06/13/24 10:01 1.25 mg Q7D@1000 ELIANA Administration Heparin Sodium (Porcine) 5,000 unit 04/23/24 10:00 04/25/24 10:20 Heparin Injection (Vial) 5,000 Unit/Ml Vial SC 5,000 unit Q12 ELIANA Administration Sodium Chloride 500 mls @ 15 mls/hr 04/23/24 09:03 04/25/24 23:00 IV 0 mls/hr .[id number] PRN Infusion Saline Flush Sodium Chloride 500 mls @ 15 mls/hr 04/23/24 09:03 IV .[id number] PRN Additional IVPB Infusion Latanoprost 1 drp 04/23/24 22:00 04/25/24 20:33 Latanoprost 0.005% 1 Bottle EACH EYE 1 drp QHS ELIANA Administration Lidocaine 1 patch 04/25/24 14:30 04/26/24 09:53 Lidocaine 5% Patch TOPICAL Not Given DAILY [facility] Protocol Losartan Potassium 50 mg 04/23/24 10:00 04/26/24 08:55 Losartan Potassium 50 Mg Tablet PO 50 mg BID ELIANA Administration Protocol Meclizine HCl 12.5 mg 04/25/24 08:33 04/25/24 12:58 Meclizine 12.5 Mg Tablet PO 12.5 mg TID PRN PRN Administration DIZZINESS Ondansetron HCl 4 mg 04/23/24 09:30 04/26/24 11:03 Ondansetron 4 Mg/2 Ml Vial IV Not Given Q6H ELIANA Oxycodone HCl 5 mg 04/25/24 01:58 04/26/24 12:47 Oxycodone 5 Mg Tablet PO 5 mg Q4H PRN PRN Administration pain 4-10 Sodium Chloride 10 - 40 ml 04/23/24 09:03 04/26/24 08:55 0.9% Saline Lock 10 Ml Syringe IV 10 ml UD PRN Administration SALINE FLUSH Sodium Chloride 1 spray 04/26/24 11:59 04/26/24 12:21 Sodium Chloride 0.65% 1 [place].Btl NASAL 1 spray TID PRN PRN Administration NASAL DRYNESS PFSH Medical History Post-menopausal Back pain due to injury On home oxygen therapy Scarlet fever Heart attack Coronary artery disease STEMI (ST elevation myocardial infarction) Sleep apnea Stroke/cerebrovascular accident Takotsubo cardiomyopathy Uncontrolled hypertension Eosinophilia, unspecified Osteoporosis Hemianopia of left eye Acute left hemiparesis Glaucoma Obesity (BMI 30.0-34.9) Osteoarthritis GERD (gastroesophageal reflux disease) Depression HTN (hypertension) Subarachnoid hemorrhage Ischemic cerebrovascular accident (CVA) Ulnar neuropathy at elbow of left upper extremity Tendonitis Left posterior interosseous nerve syndrome Gastric ulcer Left hand weakness History of breast cancer Major depressive disorder, recurrent episode, moderate Lesion of right radial nerve Home Medications ?Medication ?Instructions ?Recorded ?Last Taken ?Type latanoprost 0.005 % eye drops 1 drp EACH EYE QHS Eye drops 08/10/14 07/28/23 History omeprazole 20 mg capsule,delayed 20 mg PO DAILY GERD 08/30/20 07/29/23 History release alendronate 70 mg tablet 70 mg PO CHONG Bone health 07/06/23 Unknown History aspirin 81 mg tablet,delayed 81 mg PO BREAKFAST heart health #0 07/29/23 07/29/23 Rx release tabs nitroglycerin 0.4 mg sublingual 0.4 mg sublingual Q5M PRN 07/29/23 Unknown Rx tablet Cardiac/Chest Pain #0 tabs acetaminophen 325 mg tablet 650 mg (2 x 325 mg) PO Q4H PRN PRN 08/21/23 Unknown Rx Pain 1-10 Or Fever #1 TAB diclofenac sodium 1 % topical gel 2 g topical BID #100 grams 08/21/23 Unknown Rx (Voltaren Arthritis Pain) gabapentin 100 mg capsule 100 mg PO 2100 #1 cap 08/21/23 Unknown Rx ascorbic acid (vitamin C) 500 mg 500 mg PO BID 01/01/24 Unknown History tablet (Vitamin C) losartan 50 mg tablet 50 mg PO .COMPLEX blood pressure 01/01/24 Unknown History magnesium 200 mg tablet 200 mg PO DAILY 01/01/24 Unknown History meloxicam 15 mg tablet 15 mg PO DAILY 01/01/24 Unknown History carvedilol 12.5 mg tablet 12.5 mg PO BIDCM Hypertension 01/04/24 04/26/24 History atorvastatin 40 mg tablet 40 mg PO DAILY cholesterol 04/21/24 Unknown History d-mannose 500 mg capsule 500 mg PO BID 04/21/24 Unknown History hydrocodone-acetaminophen 5-325mg 1 tab PO Q6H PRN PRN Pain 3 days 04/21/24 Unknown Rx 5mg-325mg #10 TABLETS [id number]-rovn-iaoh 8 mg-folic 400 1 tab PO DAILY 04/21/24 Unknown History mcg-K 50 mcg-lutein 300 mcg tablet ([facility] Women 50 Plus) Allergy/AdvReac Type Severity Reaction Status Date / Time bupropion (From Wellbutrin) Allergy Severe Anaphylaxis Verified 04/23/24 03:48 Penicillins (PCN) Allergy Severe Anaphylaxis Verified 04/23/24 03:48 cariprazine (From Vraylar) AdvReac Severe Delirium/severe Verified 04/23/24 03:48 agitation quetiapine (From Seroquel) AdvReac Severe Delirium/severe Verified 04/23/24 03:48 agitation levetiracetam (From Keppra) AdvReac Other Verified 04/23/24 03:48 Family History Aunt Cancer Sister Cancer Surgical History History of right mastectomy History of lumpectomy of right breast Social History household members: spouse housing: other details: One-story house with a basement. Laundry is upstairs number of children: 1 current occupational status: retired Smoking Status: Never smoker Electronic Cigarette Use: not used second hand exposure: No alcohol intake: current alcohol intake frequency: holidays/special occasions only substance use type: does not use Review of Systems (Anesthesia) ROS Narrative System reviewed and no additional complaints, except as documented.
--- NOTE | 2024-04-26 14:00 | BONBX_PTH ---
PATIENT: GILBERTO CAMPBELL LOC: MS3 U#:[id number] AGE/SX: 73/F ROOM: MD318 RE04/23/[address]: Dr. Bo Fong DO : 1950 BED: 1 DIS: 04/27/2024 SPEC #: [id number] RECD: 04/26/24 17:33 STATUS: PEMA SOLISEsau #: [id number] HIRA: 04/26/24 14:[address]: Vivek Figueroa DEPT: SURGICAL PATHOLOGY RECD BY: Yaquelin De La Cruz ENTERED: 04/27/24 09:17 SP TYPE: Bone OTHR DR: DO Dr. Bo Escobedo MD Dr. Mark Tereletsky, DO Tissues: Vertebra, NOS Procedures: Decalcification bone/plaque Surgery Specimen Level V HEADER OPERATION: Kyphoplasty, T10 PRE-OP DIAGNOSIS: Acute thoracic compression fracture TISSUE SUBMITTED: Thoracic 10 bone biopsy MICROSCOPIC DIAGNOSIS Thoracic T10, core biopsy: Fragments of blood clot and rare minute fragments of bone, negative for malignancy. See comment. 04/28/2024 COMMENT Trilineage hematopoiesis is also noted. Immunohistochemistry ([id number]) supports the above diagnosis. Please also make reference to previous specimen [id number], right breast, mastectomy with diagnosis of invasive ductal carcinoma. Clinical correlation and appropriate follow up are necessary. MICROSCOPIC DESCRIPTION Slides are reviewed. GROSS DESCRIPTION Received in fixative is one container labeled with the patient's name and designated Thoracic 10 bone biopsy. The specimen consists of multiple fragments of blood clot mixed with a few minute fragments of bone that in aggregate measure 1.0 x 0.2 x 0.1 cm. The specimen is totally submitted in one cassette after decalcification. 04/28/2024 TC:5 CPT:79525,91612
[2024-04-26] MEDS: Lactated Ringers 1,000 ML 15 ML IV (14:03)
--- NOTE | 2024-04-26 15:11 | RAD_ITS ---
STUDY: X-RAY - LUMBAR SPINE REASON FOR EXAM: Female, 73 years old. T10 KYPHO TECHNIQUE: 14 intraoperative view(s) of the lumbar spine were obtained. COMPARISON: None FINDINGS: Intraoperative images demonstrate vertebroplasty of probable T10 . RAD/Lumbar Spine 2 or 3 Views IMPRESSION: Vertebroplasty of T10. Electronically Signed: Lucien Cardona DO at 16:41 EST ,
[2024-04-26] MEDS: Bupivacaine Mpf 0.5% 30 ML VIAL (15:34)
[2024-04-26] MEDS: Lidocaine 0.5% (50 ml) 50 ML Vial (15:34)
[2024-04-26] MEDS: Clindamycin 900 MG/50 ML BAG 75 MG IV (15:37)
--- NOTE | 2024-04-26 16:13 | PCM.OPRPT ---
Operative Report (Standard) Operative Information Surgery/Procedure Performed: T10 kyphoplasty Surgeon: Vivek Figueroa Date of Procedure: 04/26/24 Procedure Start Time: 15:34 Procedure Stop Time: 16:11 Pre-Operative Diagnosis: T10 compression fracture Post-Operative Diagnosis: T10 compression fracture Select all DRAINS/GRAFTS/IMPLANTS that apply: None Type of Anesthesia: General Estimated Blood Loss: Nil Specimen collected: Yes Description of specimen(s) removed: Bone biopsy Description of surgery: Informed consent was obtained prior to the procedure. The risks, benefits, and alternatives were discussed in detail, and the patient expressed understanding and agreed to proceed. The patient was positioned in the prone position on the fluoroscopy table. Standard monitors were applied.. Vitals were closely monitored throughout the procedure to ensure patient safety and stability. General anesthesia was induced. The skin overlying the T10 vertebra and surrounding area was sterilized with duraprep applied three times, and draped in a sterile fashion. Anesthesia was administered with 0.5% lidocaine injected at the procedural site to ensure local numbness and comfort. A bipedicular approach was used to access the T10 vertebra. Under fluoroscopic guidance, a 10-gauge trochar was introduced bilaterally through each pedicle and advanced into the vertebral body. AP, lateral and oblique fluoroscopy was used as needed. A drill was advanced through each trochar to create a cavity within the vertebral body. The drill was then removed. A biopsy was obtained from the first trochar and sent to pathology. Balloons were inserted through the trochars bilaterally and inflated gradually to a maximum pressure of 150 PSI, allowing for partial latter-day of vertebral height without compromising vertebral wall integrity. After optimal inflation was achieved, the balloons were deflated and removed, creating a cavity for cement injection. Cement was prepared and injected under fluoroscopic guidance, with 1.5 cc per side for a total of 3 cc. Cement viscosity and flow were monitored closely, and real-time fluoroscopy confirmed even cement distribution within the vertebral body without extravasation. 6ml of bupivacaine was used for anesthesia in the subcutaneous tissue postoperatively. The trochars were removed. Hemostasis was achieved, and sterile dressings were applied. No cement was noted to leak back after removal of the trochars. No complications were encountered during the procedure. Surgical Findings: T10 compression fracture Iv Therapy Nurse community health consultant: No Complications Complications: No
--- NOTE | 2024-04-26 17:33 | PCM.POST.ANE ---
Anesthesia: Postop Eval I Current Vital Signs Temperature: 97.3 F Pulse Rate: 72 Blood Pressure: 136/74 Respiratory Rate: 16 Pulse Ox: 92 Assessment Airway patent: Yes Spontaneous unlabored respirations: Yes Mental status: Awake nausea: No Vomiting: No Anesthesia Complication: No Fluid Hydration Crystalloid volume administer (ml): 400 Total IV fluid infused: 400 Progress Note Anesthesia document: Postop Eval 1 completed: Yes
--- NOTE | 2024-04-26 17:34 | PCM.POSTANE2 ---
Anesthesia Postop Eval I Sum Postop Eval Completion status Anesthesia document: Postop Eval 1 completed: Yes Anesthesia Postop Eval I Summary Anesthesia Postop Eval I Summary: Anesthesia Postop Eval I: Assessment Summary Airway patent Yes 04/26/24 17:34 Spontaneous unlabored Yes 04/26/24 17:34 respirations Mental status Awake 04/26/24 17:34 nausea No 04/26/24 17:34 Vomiting No 04/26/24 17:34 Anesthesia Postop Eval I: Fluid Summary Crystalloid volume administer 400 04/26/24 17:34 (ml) Colloids volume administered ( ml) Blood Product volume administered (ml) Total IV fluid infused 400 04/26/24 17:34 Anesthesia Postop Eval I: Summary Notes Anesthesia Complication No 04/26/24 17:34 Anesthesia Complication Comment: Post-operative progress note Anesthesia: Postop Eval II Evaluation Mental status: Awake Pain Level: 0 nausea: No Vomiting: No
[2024-04-26] MEDS: Meclizine 12.5 MG Tablet PO (20:12)
[2024-04-26] MEDS: BENZOCAINE/MENTHOL 1 LOZENGE MUCOUS MEM (20:12)
[2024-04-26] MEDS: Latanoprost 0.005% 1 Bottle 1 DRP EACH EYE (20:14)
[2024-04-26] MEDS: DiphenhydrAMINE 25 MG Capsule 50 MG PO (22:10)
[2024-04-27] MEDS: Ondansetron 4 MG/2 ML Vial IV ×2 (01:27→09:33)
[2024-04-27] MEDS: oxyCODONE 5 MG Tablet PO ×5 (01:27→17:17)
[2024-04-27] MEDS: 0.9% Saline Lock 10 ML Syringe IV ×2 (01:28→09:09)
[2024-04-27 02:00] VITALS: BP 158/88; PULSE 85; RESP 16; TEMP 36.4; O2SAT 96
--- NOTE | 2024-04-27 02:38 | NURSING ---
PT REMAINS PAINFUL, X1 ADDITIONAL DOSE OF OXYCODONE GIVEN
[2024-04-27] MEDS: Acetaminophen 500 MG Tablet 1000 MG PO ×2 (05:34→13:21)
[2024-04-27 05:56] VITALS: BP 146/74; PULSE 79; RESP 16; TEMP 36.3; O2SAT 100
--- NOTE | 2024-04-27 06:34 | NURSING ---
TEXT SENT TO DR MCKEON THIS AM ABOUT THE RETURN OF PTS PAIN SINCE GETTING UP LAST NIGHT AND ASKING FOR PT TO BE EVALUATED.
--- NOTE | 2024-04-27 07:14 | PN.HOSP_ITS ---
Reason for Visit Reason for Visit: Diagnoses Unspecified fracture of T9-T10 vertebra, initial encounter for closed fracture (04/23/24) Subjective Subjective Feeling well. Still with ongoing back pain, but improved. Objective Data Objective Data Vital Signs: Vital Signs Temp Pulse Resp BP Pulse Ox O2 Del Method O2 Flow Rate 36.3 C L 79 16 146/74 H 100 Nasal Cannula 2 04/27/24 05:56 04/27/24 05:56 04/27/24 05:56 04/27/24 05:56 04/27/24 05:56 04/27/24 05:56 04/27/24 05:56 Oxygen Flow Rate (L/min) 2 Oxygen Delivery Method Nasal Cannula Weight: 86.409 kg Body Mass Index (BMI) 34.8 Intake & Output: Intake and Output for Last 24 Hours 04/25/24 04/26/24 04/27/24 23:59 23:59 23:59 Intake Total 13.25 / 13.25 210.75 / 210.75 Balance 13.25 / 13.25 210.75 / 210.75 Lab / Micro Data 04/23/24 04:23 04/23/24 04:33 Radiography Diagnostic Testing: Radiology Impression Lumbar Spine X-Ray 04/26/24 15:11 IMPRESSION: Vertebroplasty of T10. Electronically Signed: Lucien Cardona DO at 16:41 EST Reading Location ID and State: [facility] / [place] Tel [phone], Service support , Physical Exam Const alert and no apparent distress Constitutional Narrative: up in chair on room air. no respiratory distress. no coversational dyspnea HEENT head/scalp atraumatic and moist oral mucous membranes Resp normal respiratory effort and no retractions Extremity normal to inspection and full ROM Assessment & Plan Assessment/Plan (1) Closed fracture of T10 vertebra: PLAN: Plan Acute T10 vertebral compression fracture * Noted on thoracic MRI. * Kyphoplasty on 04/26 * Pain control: PRN oxy, scheduled acetaminophen and lidocaine patch * 25-hydroxy vitamin D low, replace with ergocalciferol Vertigo * add PRN meclizine * dc'd scheduled diazepam given confusion Toxic encephalopathy * Resolved. Continue to hold IV hydromorphone, scheduled diazapam. VTE prophylaxis: SQ heparin Dispostion to home with [facility].
[2024-04-27 07:20] VITALS: O2SAT 94
[2024-04-27 09:00] VITALS: BP 170/89; PULSE 80; RESP 18; TEMP 36.1; O2SAT 98
[2024-04-27] MEDS: Lidocaine 5% Patch 1 PATCH TOPICAL (09:07)
[2024-04-27] MEDS: Polyethylene Glycol 3350 17 GM PACKET PO (09:07)
[2024-04-27] MEDS: Losartan Potassium 50 MG Tablet PO (09:08)
[2024-04-27] MEDS: Carvedilol 12.5 MG Tablet PO ×2 (09:08→17:17)
[2024-04-27] MEDS: Lactulose 20 GM/30 ML UDC 30 GM PO (09:09)
[2024-04-27] MEDS: Meclizine 12.5 MG Tablet PO (09:33)
[2024-04-27] MEDS: Heparin Injection (Vial) 5,000 UNIT/ML VIAL 5000 UNIT SC (10:51)
[2024-04-27 13:20] VITALS: BP 139/91; PULSE 80; RESP 18; TEMP 36.2; O2SAT 98
--- NOTE | 2024-04-27 14:07 | DS.PCM_ITS ---
Providers Date of Admission: 04/23/24 Primary Care Physician: Dr. Bo Nicholas MD Consultations 04/24/24 16:03 Consult: Pain Management Routine Consulting Provider: Vivek Figueroa Reason for Consult: T10 compression fracture EMERGENT Consult: No MD Notified: Yes Date Notified: 04/24/24 Time Notified: 16:04 Method of Notification: Verbal Reason For Visit: LOW BACK PAIN, NAUSEA/VOMITING Diagnosis Discharge Diagnosis (1) Closed fracture of T10 vertebra: Status: Acute Code(s): S22.079A - Unspecified fracture of T9-T10 vertebra, initial encounter for closed fracture Plan Acute T10 vertebral compression fracture * Noted on thoracic MRI. * Kyphoplasty on 04/26 * Pain control: PRN oxy, scheduled acetaminophen and lidocaine patch * 25-hydroxy vitamin D low, replace with ergocalciferol Vertigo * add PRN meclizine * dc'd scheduled diazepam given confusion Toxic encephalopathy * Resolved. Continue to hold IV hydromorphone, scheduled diazapam. VTE prophylaxis: SQ heparin Dispostion to home with [facility]. Medications at Discharge Home Medications latanoprost 0.005 % eye drops 1 drp EACH EYE QHS Eye drops 08/10/14 omeprazole 20 mg capsule,delayed release 20 mg PO DAILY GERD 08/30/20 alendronate 70 mg tablet 70 mg PO CHONG Bone health 07/06/23 aspirin 81 mg tablet,delayed release 81 mg PO BREAKFAST heart health #0 tabs 07/29/23 nitroglycerin 0.4 mg sublingual tablet 0.4 mg sublingual Q5M PRN Cardiac/Chest Pain #0 tabs 07/29/23 diclofenac sodium 1 % topical gel (Voltaren Arthritis Pain) 2 g topical BID #100 grams 08/21/23 gabapentin 100 mg capsule 100 mg PO 2100 #1 cap 08/21/23 ascorbic acid (vitamin C) 500 mg tablet (Vitamin C) 500 mg PO BID 01/01/24 losartan 50 mg tablet 50 mg PO .COMPLEX blood pressure 01/01/24 magnesium 200 mg tablet 200 mg PO DAILY 01/01/24 meloxicam 15 mg tablet 15 mg PO DAILY 01/01/24 carvedilol 12.5 mg tablet 12.5 mg PO BIDCM Hypertension 01/04/24 atorvastatin 40 mg tablet 40 mg PO DAILY cholesterol 04/21/24 d-mannose 500 mg capsule 500 mg PO BID 04/21/24 yrafmiop-spby-jivh 8 mg-folic 400 mcg-K 50 mcg-lutein 300 mcg tablet (Century Women 50 Plus) 1 tab PO DAILY 04/21/24 acetaminophen 325 mg tablet 1,000 mg (3.0769 x 325 mg) PO Q8 #1 TAB 04/27/24 ergocalciferol (vitamin D2) 1,250 mcg (50,000 unit) capsule (Vitamin D2) 1,250 mcg PO Q7D@1000 #7 caps 04/27/24 lidocaine 4 % topical patch 1 patch topical DAILY PRN pain #10 ea 04/27/24 meclizine 12.5 mg tablet 12.5 mg PO TID PRN PRN Dizziness #10 tabs 04/27/24 oxycodone 5 mg tablet 5 mg PO Q4H PRN PRN pain 4-10 3 days #18 tabs 04/27/24 Hospital Course Procedures - (kyphoplasty) Summary of Care Provided Minutes Spent on Discharge: 33 Hospital Course: This is a 73-year-old female who had fallen and complaint of low back pain. Patient was DrKhushbu Initially seen in the emergency room and sent home for the dizziness but came back because of the back pain. Patient was found to have a T10 vertebral body fracture. This was confirmed. Patient underwent kyphoplasty on the by Dr. Figueroa. Patient tolerated the procedure well. Still has ongoing back pain but overall feels better. Patient's hospitalization was complicated by confusion. This is likely due to medications including hydromorphone and scheduled diazepam that she was receiving for dizziness. Those were discontinued and the patient was doing better overall. Patient was observed overnight and plan is for discharge home Weight / BMI Weight Weight: 86.409 kg Body Mass Index (BMI) 34.8 ABG / Lab / Microbiology Data 04/23/24 04:23 04/23/24 04:33 Radiography Diagnostic Testing: Radiology Impression Lumbar Spine X-Ray 04/26/24 15:11 IMPRESSION: Vertebroplasty of T10. Electronically Signed: Lucien Cardona DO at 16:41 EST Reading Location ID and State: [facility] / [place] Tel [phone], Service support , D/C Instructions Discharge Diet: No restrictions Discharge Activity: Use Walker DC O2, CPAP, BIPAP Needs Additional Home O2 Discharge instructions: No DC home with Oxygen: No Meaningful Use Info Meaningful Use Meaningful Use Diagnoses (Choose all that apply): None applicable Ischemic Stroke Statin Dosing Therapy Reference: STATIN DOSE THERAPY REFERENCE: * Patients > 75 years receive moderate or high dose statin therapy. * Patients 75 years or YOUNGER should receive HIGH intensity statin dose unless contraindicated. You will be required to document reason for non-treatment if statin daily dose does not meet guidelines. HIGH DOSE STATIN THERAPY DAILY Atorvastatin > than or = to 40 mg Rosuvastatin > than or = to 20 mg Amlodipine + Atorvastatin > than or = to 2.5/40 mg Ezetimibe + Simvastatin 10/80 mg Simvastatin 80mg Discharge Plan Admission Admit Date/Time: 04/23/24 18:42 Primary Reason for Your Visit: T10 compression fracture Attending Provider: Bo Fong Primary Care Provider: Bo Nicholas Consulting Providers: Vivek Figueroa; Momo Malone Instructions Patient Instructions: Kyphoplasty Dc Discharge Orders/Prescriptions Prescriptions: New ergocalciferol (vitamin D2) [Vitamin D2] 1,250 mcg (50,000 unit) Capsule 1,250 mcg PO Q7D@1000 Qty: 7 0RF meclizine 12.5 mg Tablet 12.5 mg PO TID PRN PRN (Reason: Dizziness) Qty: 10 0RF oxycodone 5 mg Tablet 5 mg PO Q4H PRN PRN (Reason: pain 4-10) 3 Days Qty: 18 0RF lidocaine 4 % adhesive patch,medicated 1 patch topical DAILY PRN (Reason: pain) Qty: 10 0RF Rx Instructions: Wqjv-mpc-qhvhuzu, no prescription required Continued omeprazole 20 mg capsule,delayed release(DR/EC) 20 mg PO DAILY carvedilol 12.5 mg tablet 12.5 mg PO BIDCM latanoprost 1 DROP bottle 1 drp EACH EYE QHS Patient Comments: GLAUCOMA alendronate 70 mg tablet 70 mg PO CHONG aspirin 81 mg Tablet,Delayed Release (Dr/Ec) 81 mg PO BREAKFAST Qty: 0 0RF nitroglycerin 0.4 mg Tablet, Sublingual 0.4 mg sublingual Q5M PRN (Reason: Cardiac/Chest Pain) Qty: 0 0RF gabapentin 100 mg Capsule 100 mg PO 2100 Qty: 1 0RF diclofenac sodium [Voltaren Arthritis Pain] 1 % gel 2 g topical BID Qty: 100 0RF Rx Instructions: apply to the anterior shins and the feet BID Century Women 50 Plus 8 mg iron-400 mcg-50 mcg tablet 1 tab PO DAILY d-mannose 500 mg capsule 500 mg PO BID atorvastatin 40 mg tablet 40 mg PO DAILY ascorbic acid (vitamin C) [Vitamin C] 500 mg tablet 500 mg PO BID magnesium 200 mg tablet 200 mg PO DAILY losartan 50 mg tablet 50 mg PO .COMPLEX Rx Instructions: 50 mg orally twice daily meloxicam 15 mg tablet 15 mg PO DAILY Changed acetaminophen 325 mg Tablet 1,000 mg PO Q8 Qty: 1 0RF Discontinued hydrocodone-acetaminophen 5-325 mg tablet 1 tab PO Q6H PRN PRN (Reason: Pain) 3 Days Qty: 10 0RF Referrals / Follow Up: Bo Nicholas MD [Primary Care Provider] - Vivek Figueroa MD [Med Staff - Active Staff] - (in 1 week for follow up in the office) Disposition Disposition (needs filled in before D/C Order can be placed): Home Health Service Charges/Coding Visit Charges Inpatient E&M: 94581 Disch Hosp >30min
--- NOTE | 2024-04-27 14:50 | CASEMGMT ---
Addendum entered by Kerline Mendes 04/27/24 15:14: Received tc from Chantel, [facility] will accept pt. SN added to referral. Updated pt. Original Note: RN CM into pt room, pt lying in bed with family at bedside. Discussed dc planning. Pt states she would be interested in [facility] physical therapy. She states she has had [facility] in the past and would like them back if possible. Pt denies need for list of other agencies. TC to [facility], spoke with Chantel, referral made, will await acceptance.
[2024-04-27] MEDS: Sodium Chloride 0.65% 1 SPRAY SPRAY.BTL NASAL (16:08)
[2024-04-27 17:10] VITALS: BP 144/68; PULSE 73; RESP 18; TEMP 36.1; O2SAT 94
== END 2024-04-27 17:46 | disposition home health service (06) | DRG 479 ==
LOC: ED 08:17 → MS3 08:21
PROVIDERS: Anesthesiology; Admitting Provider Internal Medicine; Emergency Provider Emergency Medicine; PCP Family Medicine
PROC: 0PB43ZX Excision of Thoracic Vertebra, Percutaneous Approach, Diagnostic (ICD-10-PCS; principal; 2024-04-26 13:45)
DX: M80.08XA Age-related osteoporosis with current pathological fracture, vertebra(e), initial encounter for fracture (principal); E66.9 Obesity, unspecified; I10 Essential (primary) hypertension; W19.XXXA Unspecified fall, initial encounter; I25.2 Old myocardial infarction; K21.9 Gastro-esophageal reflux disease without esophagitis; E78.5 Hyperlipidemia, unspecified; R11.2 Nausea with vomiting, unspecified; G47.30 Sleep apnea, unspecified; T40.2X5A Adverse effect of other opioids, initial encounter; T42.4X5A Adverse effect of benzodiazepines, initial encounter; Y92.239 Unspecified place in hospital as the place of occurrence of the external cause; R42 Dizziness and giddiness; H40.9 Unspecified glaucoma; Z68.34 Body mass index [BMI] 34.0-34.9, adult; Z88.0 Allergy status to penicillin; Z85.3 Personal history of malignant neoplasm of breast; Z90.11 Acquired absence of right breast and nipple; Z79.82 Long term (current) use of aspirin; Z79.899 Other long term (current) drug therapy
CPT/HCPCS: 36415; 70496; 70498; 72100; 72125; 72128; 72146; 72220; 74177; 76000; 80048; 80053; 81001; 82306; 83690; 84484; 85025; 88307; 88311; 88341; 88342; 93005; 96374; 96375; 96376; 97116; 97162; 97165; 97530; 97535; 99284; 99285; Q9967; A4216; J2405

== ENCOUNTER → 2024-05-06 | Outpatient (CLI) | payer MEDICARE, SELFPAY ==
--- NOTE | 2024-05-06 09:39 | RAD_ITS ---
STUDY: X-RAY - LUMBAR SPINE REASON FOR EXAM: Female, 73 years old. T10 COMPRESSION FRACTURE LOW BACK PAIN TECHNIQUE: 3 AP and lateral view(s) of the lumbar spine were obtained. COMPARISON: Lumbar spine radiograph April 26, 2024. FINDINGS: Normal lumbar lordosis. There is no substantial scoliosis. Grade 1 spondylolisthesis L4-5 unchanged. Compression fracture vertebral plasty noted at T10. Otherwise Normal vertebral bodies and endplates. There is multi-level degenerative disc disease with multi-level disc space narrowing. Bilateral tubal ligation clips noted. Facet arthropathy at multiple levels through the lumbar spine. The soft tissue structures are unremarkable. RAD/Lumbar Spine 2 or 3 Views IMPRESSION: Vertebral plasty and compression fracture T10 new. Grade 1 spondylolisthesis L4-5 unchanged. Electronically Signed: Car Danielle MD at 0:14 EST ,
--- NOTE | 2024-05-06 09:39 | RAD_ITS ---
STUDY: X-RAY - THORACIC SPINE REASON FOR EXAM: Female, 73 years old. T10 COMPRESSION FRACTURE LOW BACK PAIN TECHNIQUE: 5 images/ AP and lateral view(s) of the thoracic spine were obtained. COMPARISON: MR thoracic spine April 25, 2024. FINDINGS: There is an increase in the normal thoracic kyphosis. There is no substantial scoliosis. There is multilevel endplate spondylosis of the thoracic vertebrae. There is multilevel disc space narrowing of the thoracic spine. The soft tissue structures are unremarkable. RAD/Thoracic Spine 2 Views IMPRESSION: New Vertebral plasty and compression fracture T10. Electronically Signed: Car Danielle MD at 0:10 EST ,
== END | disposition home or self-care (01) ==
LOC: RAD 09:38
PROVIDERS: PCP Family Medicine; Referring Provider Anesthesiology; Visit Provider Anesthesiology
DX: M48.54XA Collapsed vertebra, not elsewhere classified, thoracic region, initial encounter for fracture (principal); M54.50 Low back pain, unspecified
CPT/HCPCS: 72070; 72100

== ENCOUNTER → 2024-05-17 | Outpatient (CLI) | payer MEDICARE, SELFPAY ==
--- NOTE | 2024-05-17 09:29 | ECHOLC_ITS ---
Reason For Study: CHF Procedure This was a limited 2D transthoracic echocardiogram. The study was technically difficult. Exam performed in department. Left Ventricle Normal left ventricle. The left ventricular ejection fraction is 30 %. Septal motion consistent with bundle branch block. Right Ventricle Normal RV size. Normal systolic function. Atria Normal left atrium. Normal right atrium. Mitral Valve Normal mitral valve. Tricuspid Valve Normal tricuspid valve. Aortic Valve Normal aortic valve. Pulmonic Valve The pulmonic valve is not well visualized. Great Vessels Normal aortic root. The pulmonary artery is normal size. Normal inferior vena cava. Pericardium/Pleural No pericardial effusion. Medication 22 gauge I.V. with prn adaptor inserted into left arm. Diluted definity 5ml given slow IV push to enhance endocardial definition. MMode/2D Measurements & Calculations LVIDd: 4.9 cm IVSd: 1.1 cm LVIDs: 4.1 cm LVPWd: 1.1 cm LVAd ap4: 34.6 cm2 FS: 17.4 % LVLd ap4: 7.7 cm EDV(MOD-sp4): 128.8 ml EDV(sp4-el): 132.6 ml LVAs ap4: 27.8 cm2 LVLs ap4: 7.4 cm ESV(MOD-sp4): 84.5 ml ESV(sp4-el): 89.0 ml EF(MOD-sp4): 34.4 % EF(sp4-el): 32.9 % SV(MOD-sp4): 44.3 ml SV(sp4-el): 43.6 ml SI(MOD-sp4): 23.1 ml/m2 ECHO/Echo Limited w/Contrast Interpretation Summary The left ventricular ejection fraction is 30 %. Normal left ventricle. Compared to previous study, the left ventricular systolic function has worsened .. Structurally normal valves. Ordering Physician: Stephane Kemp Referring Physician: ANDERSON MATTHEWS Performed By: Svetlana Serrano RDCS
== END | disposition home or self-care (01) ==
LOC: CVS 09:28
PROVIDERS: PCP Family Medicine; Referring Provider Internal Medicine Cardiovascular Disease; Visit Provider Internal Medicine Cardiovascular Disease
DX: I50.9 Heart failure, unspecified (principal); I51.81 Takotsubo syndrome
CPT/HCPCS: 93308; Q9957; C8924; J2785

== ENCOUNTER → 2024-05-20 | Outpatient (CLI) | payer MEDICARE, SELFPAY | END | disposition home or self-care (01) | LOC: LABSPEC 11:12 | PROVIDERS: PCP Family Medicine; Referring Provider Family Medicine; Visit Provider Family Medicine | DX: R39.15 Urgency of urination (principal) | CPT/HCPCS: 87086; 87088; 87186 ==

== ENCOUNTER 2024-05-27 16:03 | Inpatient (IN) | payer MEDICARE, SELFPAY ==
[2024-05-27] VITALS (7 sets, daily range): BP systolic 103–125; BP diastolic 34–77; PULSE 63–86; RESP 16–18; TEMP 36.6; O2SAT 94–98; BMI 34.4; BMI 33.5
--- NOTE | 2024-05-27 16:24 | EKG12_ITS ---
Test Reason : SYNCOPE Blood Pressure : */* mmHG Vent. Rate : 61 BPM Atrial Rate : 61 BPM P-R Int : 194 ms QRS Dur : 140 ms QT Int : 442 ms P-R-T Axes : 15 -81 102 degrees QTcB Int : 444 ms Normal sinus rhythm Left axis deviation Non-specific intra-ventricular conduction block Cannot rule out Anteroseptal infarct (cited on or before 21-Apr-2024) T wave abnormality, consider lateral ischemia Abnormal ECG Confirmed by TRACY DUBOSE, DERIC ([id number]), fan mail editor MUNA SHAIKH ([id number]) on 05/30/2024 6:38:34 AM Referred By: Vivek Garnett Confirmed By: DERIC MOLINA MD
--- NOTE | 2024-05-27 16:26 | EDS_ITS ---
HPI History of Present Illness Chief Complaint: Seizure Informant: patient, spouse/S.O., family and EMS Narrative Narrative: 73-year-old female presenting to the emergency room with vomiting and an unresponsive episode. states that she has been constipated since taking a pain medication over the past week due to compression fractures of the back due to a syncope/fall. Patient took senna MiraLAX but sounds like magnesium citrate and began to have bowel movements today. This afternoon she was not feeling well and sat down for some chicken noodle soup. While eating she began to vomit and a friend who is with her while her ran to town noted that she passed out and began to twitch. EMS was called and found her alert and orientated. She continues to report nausea and is having some vomiting. She denies preceding chest pain chest tightness or palpitations. states that she wears oxygen at night and he had put it on her earlier in the day because she was noticing some shortness of breath. Family states that she has had an echocardiogram around the of this month showed an ejection fraction of 30% and she is supposed to see cardiology. [facility] Medical History Post-menopausal Back pain due to injury On home oxygen therapy Scarlet fever Heart attack Left bundle branch block Coronary artery disease Cognitive dysfunction Left hemiparesis Leg pain, bilateral Recurrent major depression resistant to treatment STEMI (ST elevation myocardial infarction) Uncontrolled depression Sleep apnea Stroke/cerebrovascular accident Takotsubo cardiomyopathy Uncontrolled hypertension Eosinophilia, unspecified Dermatitis Osteoporosis Closed TBI (traumatic brain injury) Alien hand syndrome Hemianopia of left eye Acute left hemiparesis Glaucoma Obesity (BMI 30.0-34.9) Osteoarthritis GERD (gastroesophageal reflux disease) Depression HTN (hypertension) Subarachnoid hemorrhage Ischemic cerebrovascular accident (CVA) Ulnar neuropathy at elbow of left upper extremity Tendonitis Hyperlipidemia Cerebrovascular disease Left posterior interosseous nerve syndrome Gastric ulcer Left hand weakness History of breast cancer Major depressive disorder, recurrent episode, moderate Lesion of right radial nerve Home Medications Medication Instructions Recorded Last Taken Type latanoprost 0.005 % eye drops 1 drp EACH EYE QHS Eye drops 08/10/14 07/28/23 History omeprazole 20 mg capsule,delayed 20 mg PO DAILY GERD 08/30/20 07/29/23 History release alendronate 70 mg tablet [address] [facility] 07/06/23 Unknown History aspirin 81 mg tablet,delayed 81 mg PO BREAKFAST heart health #0 07/29/23 07/29/23 Rx release tabs nitroglycerin 0.4 mg sublingual 0.4 mg sublingual Q5M PRN 07/29/23 Unknown Rx tablet Cardiac/Chest Pain #0 tabs ascorbic acid (vitamin C) 500 mg 500 mg PO BID 01/01/24 Unknown History tablet (Vitamin C) losartan 50 mg tablet 50 mg PO .COMPLEX blood pressure 01/01/24 Unknown History magnesium 200 mg tablet 250 mg PO DAILY 01/01/24 Unknown History meloxicam 15 mg tablet 15 mg PO DAILY 01/01/24 Unknown History carvedilol 12.5 mg tablet 12.5 mg PO BIDCM Hypertension 01/04/24 04/26/24 History atorvastatin 40 mg tablet 40 mg PO DAILY cholesterol 04/21/24 Unknown History d-mannose 500 mg capsule 500 mg PO BID 04/21/24 Unknown History srkvxahw-psfo-tdsc 8 mg-folic 400 1 tab PO DAILY 04/21/24 Unknown History mcg-K 50 mcg-lutein 300 mcg tablet (Century Women 50 Plus) ergocalciferol (vitamin D2) 1,250 1,250 mcg PO Q7D@1000 #7 caps 04/27/24 Unknown Rx mcg (50,000 unit) capsule (Vitamin D2) meclizine 12.5 mg tablet 12.5 mg PO TID PRN PRN Dizziness 04/27/24 Unknown Rx #10 tabs baclofen 5 mg tablet 5 mg PO TID 05/20/24 Unknown History hydromorphone 2 mg tablet 2 mg PO Q6H PRN pain 05/20/24 Unknown History sennosides 8.6 mg tablet (Isidra-william) 8.6 mg PO BID 05/20/24 Unknown History spironolactone 25 mg tablet 25 mg PO DAILY #30 tabs 05/20/24 Unknown Rx gabapentin 600 mg tablet 300 - 600 mg PO Q8H PRN PRN pain 05/27/24 Unknown History Allergy/AdvReac Type Severity Reaction Status Date / Time bupropion (From Wellbutrin) Allergy Severe Anaphylaxis Verified 05/27/24 16:04 Penicillins (PCN) Allergy Severe Anaphylaxis Verified 05/27/24 16:04 cariprazine (From Vraylar) AdvReac Severe Delirium/severe Verified 05/27/24 16:04 agitation quetiapine (From Seroquel) AdvReac Severe Delirium/severe Verified 05/27/24 16:04 agitation levetiracetam (From Keppra) AdvReac Other Verified 05/27/24 16:04 Family History Aunt Cancer Sister Cancer Surgical History History of right mastectomy History of lumpectomy of right breast Social History household members: spouse housing: other details: One-story house with a basement. Laundry is upstairs number of children: 1 current occupational status: retired Smoking Status: Never smoker Electronic Cigarette Use: not used second hand exposure: No alcohol intake: current alcohol intake frequency: holidays/special occasions only substance use type: does not use ROS ROS ED Constitutional Constitutional ED: Denies chills, fever(s) or weight loss Eyes Eyes: Denies change in vision or diplopia ENT ENT ED: Denies ear pain, rhinorrhea or sore throat Cardiovascular Cardiovascular: Reports other Details: Syncope ; Denies chest pain, orthopnea, palpitations or racing heartbeat Respiratory/Chest Respiratory/Chest: Reports dyspnea; Denies cough or orthopnea Gastrointestinal Gastrointestinal: Reports constipation, diarrhea, nausea and vomiting; Denies abdominal pain Genitourinary Genitourinary ED: Denies dysuria, hematuria or urinary frequency Musculoskeletal Musculoskeletal: Reports back pain; Denies arthralgias or myalgias Integumentary Denies abscess or rash Neurologic Neurologic: Denies headache(s) or weakness Psychiatric Psychiatric: Denies anxiety, depression, suicidal ideation or suicidal thoughts Endocrine Endocrinology: Denies polydipsia, polyphagia or polyuria Allergic/Immunologic Allergic/Immunologic ED: Denies mouth swelling, tongue swelling or urticaria EXAM Physical Exam Narrative Exam Narrative: Patient is actively vomiting Const Vital Signs: 05/27/24 16:04 05/27/24 17:04 05/27/24 17:53 Temperature 97.8 F Temperature Source Oral Pulse Rate 86 65 63 Respiratory Rate 18 18 18 Blood Pressure 103/34 L 125/69 H 121/77 H Blood Pressure Mean 57 87 91 Pulse Ox 98 97 94 Oxygen Delivery Method Room Air Room Air Room Air 05/27/24 18:54 05/27/24 20:00 05/27/24 20:11 Temperature 98 F Temperature Source Pulse Rate 64 64 63 Respiratory Rate 16 18 18 Blood Pressure 108/68 108/68 108/68 Blood Pressure Mean 81 81 81 Pulse Ox 98 98 98 Oxygen Delivery Method Room Air Room Air Positive well nourished, well developed and obese General Appearance ED: well developed and NAD Nutritional Appearance: obese HEENT Reports normocephalic, head/scalp atraumatic and moist mucous membranes Eyes PERRL and EOMs intact bilaterally Neck no lymphadenopathy, supple and no JVD Resp normal respiratory effort and clear to auscultation bilaterally Cardio regular rate, regular rhythm and no murmurs GI normal to inspection, nondistended, normoactive bowel sounds and non-tender Palpation: soft Back/Spine no CVA tenderness and normal ROM Extremity normal to inspection General Extremety ED: Negative for edema General Extremity: Negative for edema Neuro oriented x3 and CN's II-XII intact bilaterally Sensorium / Orientation: alert Motor Exam: strength 5/5 throughout Psych mental status grossly normal Mood & Affect: Negative for depressed or tearful Skin no rashes or lesions noted and no wounds MDM MDM MDM Narrative Medical decision making narrative: Differential diagnosis includes but not limited to vasovagal syncope cardiogenic syncope dehydration electrolyte abnormalities seizure anemia EKG does not show any significant changes compared to prior. Her white count is slightly elevated nonspecifically at 11.2 hemoglobin 12.4 platelet count of 247. Sodium is 137 potassium is 6.3 creatinine elevated from baseline now at 2.5 with a BUN of 35 CO2 23 and anion gap of 4. Glucose is 115 magnesium 2.9 alk phos 123 lipase 65 urinalysis no overt infection. My independent interpretation of the chest x-ray is no acute process. Patient received IV fluids. The first liter went in and I was told by nursing that this appears to have infiltrated. She received additional fluids. Given that her ejection fraction is low are going to continue IV fluids with gentle hydration and were going to repeat the BMP as there is not been any EKG changes. History & Record Review Discussion w/independent historian: EMS personnel, Patient, Family and Significant other Lab Data Attestation: I reviewed the patient's lab results. Labs: Laboratory Results - last 24 hr 05/27/24 05/27/24 17:02 18:43 WBC 11.2 H RBC 3.99 L Hgb 12.4 Hct 39.3 MCV 98.5 MCH 31.1 MCHC 31.6 L RDW Std Deviation 48.6 H RDW Coeff of Kenisha 13.3 Plt Count 247 MPV 12.3 H Immature Gran % (Auto) 0.400 Neut % (Auto) 76.1 H Lymph % (Auto) 14.5 L [place] % (Auto) 4.5 Eos % (Auto) 3.8 Baso % (Auto) 0.7 Absolute Neuts (auto) 8.5 H Absolute Lymphs (auto) 1.62 Nucleated RBC % 0 Sodium 137 Potassium 6.3 H* Chloride 109 H Carbon Dioxide 23.0 Anion Gap 4 L BUN 35 H Creatinine 2.50 H Estim Creat Clear Calc 19.74 Est GFR (MDRD) Af Amer 24 L Est GFR (MDRD) Non-Af 20 L BUN/Creatinine Ratio 14.0 Glucose 115 H Calcium 11.0 H Magnesium 2.9 H Total Bilirubin 0.80 Direct Bilirubin 0.24 AST 23 ALT 26 Alkaline Phosphatase 123 H Troponin I High Sens 15 Total Protein 7.4 Albumin 3.8 Globulin 3.6 Lipase 65 Urine Color Lea Urine Clarity Clear Urine pH 6.0 Ur Specific [place] 1.015 Urine Protein 30 H Urine Glucose (UA) Normal Urine Ketones Negative Urine Occult Blood Negative Urine Nitrite Negative Urine Bilirubin Negative Urine Urobilinogen 1 H Ur Leukocyte Esterase 25 H Urine RBC 0 SEEN Urine WBC 0-5 SEEN Ur Squamous Epith Cells 0 SEEN Urine Bacteria RARE Urine Mucus 0 SEEN Radiography Diagnostic Testing: Clinical Impression(s) from Imaging Studies Chest X-Ray 05/27/24 17:40 IMPRESSION: No acute cardiopulmonary pathology Electronically Signed: Nic Kirk MD at 18:31 EST , EKG Initial EKG: Attestation: I personally reviewed and interpreted this EKG as follows: Comments: Normal sinus rhythm ventricular rate of 61 bpm. Discharge Plan Dx/Rx/DC Orders Clinical Impression: Vasovagal syncope, KELSI (acute kidney injury), Acute hyperkalemia, Diarrhea Disposition Disposition: Acute Care Hospital [facility]
[2024-05-27] MEDS: Ondansetron 4 MG/2 ML Vial IV (17:04)
[2024-05-27] MEDS: 0.9% Normal Saline (1000mL) 1,000 ML 1000 ML IV (17:04)
[2024-05-27 17:16] LABS: Absolute Lymphocyte Count 1.62 X10^3/uL (0.83-4.51); Absolute Neutrophil Count 8.5 X10^3/uL (2.0-7.7); Basophil# 0.08 X10^3/uL; Basophil% 0.7 % (0-1); Eosinophil# 0.42 X10^3/uL; Eosinophils% 3.8 % (0-5); Hematocrit 39.3 % (37-47); Hemoglobin 12.4 g/dL (12.0-15.0); Lymphocyte # 1.62 X10^3/ul (0.83-4.51); Lymphocyte % 14.5 % (19-41); Mean Corp Hgb Conc 31.6 g/dL (32-36); Mean Corpuscular Hgb 31.1 pg (27.0-32.0); Mean Corpuscular Volume 98.5 fL (81-99); Mean Platelet Vol. 12.3 fl (6.2-12.0); Monocyte% 4.5 % (0-10); NRBC Flagged by Analyzer 0 % (0-5); Neutrophil # 8.54 X10^3/uL (2.7-7.7); Neutrophil % 76.1 % (47-70); Platelet Count 247 K/mm3 (150-450); RBC Distribution Width CV 13.3 % (11.6-14.6); RBC Distribution Width SD 48.6 fl (35.1-43.9); Red Blood Count 3.99 M/mm3 (4.2-5.4); White Blood Count 11.2 K/mm3 (4.4-11.0)
--- NOTE | 2024-05-27 17:40 | RAD_ITS ---
STUDY: X-RAY CHEST REASON FOR EXAM: Female, 73 years old. syncope TECHNIQUE: AP portable COMPARISON: May 06, 2024 FINDINGS: The lungs are clear and expanded. There is no demonstrated pleural abnormality. Normal size heart. Normal mediastinum and regina. Normal visualized pulmonary arteries. Mildly calcified aortic arch and descending thoracic aorta. Dorsal spine demonstrates degenerative changes and old fracture status post kyphoplasty. Normal visualized ribs, clavicles, and shoulders. There is no demonstrated abnormality of the visualized soft tissue structures of the upper abdomen. RAD/Chest 1 View (Portable) IMPRESSION: No acute cardiopulmonary pathology Electronically Signed: Nic Kirk MD at 18:31 EST ,
[2024-05-27 17:43] LABS: AST(SGOT) 23 U/L (15-37); Alanine Aminotransfer ALT/SGPT 26 U/L (13-56); Albumin, Serum 3.8 g/dL (3.2-5.0); Alkaline Phosphatase 123 U/L (45-117); Anion Gap 4 (5-15); BUN 35 mg/dL (7-18); Bilirubin, Direct 0.24 mg/dL (0.00-0.30); Chloride 109 mmol/L (98-107); EST Glomerular Filtration Rate 20 mL/min (>60); Est Glom Filt Rate - Afr Amer 24 mL/min (>60); Estimated Creatinine Clearance 19.74 ml/min; Globulin 3.6 g/dL (2.2-4.2); Glucose 115 mg/dL (74-106); Lipase 65 U/L (13-75); Potassium 6.3 mmol/L (3.5-5.1); Protein, Total 7.4 g/dL (6.4-8.2); Sodium Level 137 mmol/L (136-145); Troponin-I HS 15 pg/mL (3.0-54.0)
[2024-05-27 18:07] LABS: Magnesium 2.9 mg/dL (1.6-2.6)
[2024-05-27 18:59] LABS: Mucous, Urine 0 SEEN /hpf (<or=2+); Red Blood Cells-Urine 0 SEEN /hpf (0-5); Squamous Epithelial Cells - UA 0 SEEN /hpf (5-10)
--- NOTE | 2024-05-27 19:03 | ED.RN ---
IV infiltrated with Normal saline. IV removed. difficult IV stick. ultra sound attempted x2 finally 24g in left hand placed. RUE unable to use due to surgery history. Doctor updated.
[2024-05-27 19:04] LABS: Color, Urine Amber (Yellow); Glucose, Dipstick Normal (Normal); Ketone-Dipstick Negative (Negative); Leukocyte Esterase-Dipstick 25 /ul (Negative); Nitrite-Dipstick Negative (Negative); Occult Blood-Urine Negative /ul (Negative); Protein-Dipstick 30 mg/dl (Negative); Specific Gravity, Urine 1.015 (1.002-1.030); Urine Bilirubin Dipstick Negative (Negative); Urine Clarity Clear (Clear); Urine Urobilinogen 1 mg/dl (Normal)
[2024-05-27 19:20] LABS: Bacteria RARE /hpf (None Seen); White Blood Cells 0-5 SEEN /hpf (0-5)
--- NOTE | 2024-05-27 20:12 | HP.PCM.HOS_ITS ---
HPI - General General Date of Admission: 05/27/24 HPI Narrative GILBERTO CAMPBELL, is a 73 F who presents to the hospital secondary to dehydration and syncope. She recently had a T10 compression fracture and is status post kyphoplasty in April and has been on narcotics as well as baclofen and gabapentin since then. She has been having constipation issues secondary to the narcotics and today her gave her a dose of MiraLAX as well as senna and then mag citrate which did relieve the constipation little little bit of diarrhea and then she tried to eat chicken noodle soup and had episode of nausea and vomiting and then had a syncopal episode. She is lethargic but alert and aware and this is likely secondary to the fact that she has an KELSI, her renal function at baseline is 1 and today is 2.5 and she is also on gabapentin as well as baclofen which given her KELSI can lead to significant cognitive depression. In the ER her potassium was found to be elevated but it is felt that this might have been due to hemolysis so this is being repeated in the meantime we will hold her Aldactone. [facility] Medical History Post-menopausal Back pain due to injury On home oxygen therapy Scarlet fever Heart attack Left bundle branch block Coronary artery disease Cognitive dysfunction Left hemiparesis Leg pain, bilateral Recurrent major depression resistant to treatment STEMI (ST elevation myocardial infarction) Uncontrolled depression Sleep apnea Stroke/cerebrovascular accident Takotsubo cardiomyopathy Uncontrolled hypertension Eosinophilia, unspecified Dermatitis Osteoporosis Closed TBI (traumatic brain injury) Alien hand syndrome Hemianopia of left eye Acute left hemiparesis Glaucoma Obesity (BMI 30.0-34.9) Osteoarthritis GERD (gastroesophageal reflux disease) Depression HTN (hypertension) Subarachnoid hemorrhage Ischemic cerebrovascular accident (CVA) Ulnar neuropathy at elbow of left upper extremity Tendonitis Hyperlipidemia Cerebrovascular disease Left posterior interosseous nerve syndrome Gastric ulcer Left hand weakness History of breast cancer Major depressive disorder, recurrent episode, moderate Lesion of right radial nerve Home Medications Medication Instructions Recorded Last Taken Type latanoprost 0.005 % eye drops 1 drp EACH EYE QHS Eye drops 08/10/14 07/28/23 History omeprazole 20 mg capsule,delayed 20 mg PO DAILY GERD 08/30/20 07/29/23 History release alendronate 70 mg tablet 70 mg PO Bone health 07/06/23 Unknown History aspirin 81 mg tablet,delayed 81 mg PO BREAKFAST heart health #0 07/29/23 07/29/23 Rx release tabs nitroglycerin 0.4 mg sublingual 0.4 mg sublingual Q5M PRN 07/29/23 Unknown Rx tablet Cardiac/Chest Pain #0 tabs ascorbic acid (vitamin C) 500 mg 500 mg PO BID 01/01/24 Unknown History tablet (Vitamin C) losartan 50 mg tablet 50 mg PO .COMPLEX blood pressure 01/01/24 Unknown History magnesium 200 mg tablet 250 mg PO DAILY 01/01/24 Unknown History meloxicam 15 mg tablet 15 mg PO DAILY 01/01/24 Unknown History carvedilol 12.5 mg tablet 12.5 mg PO BIDCM Hypertension 01/04/24 04/26/24 History atorvastatin 40 mg tablet 40 mg PO DAILY cholesterol 04/21/24 Unknown History d-mannose 500 mg capsule 500 mg PO BID 04/21/24 Unknown History [id number]-hwqq 8 mg-folic 400 1 tab PO DAILY 04/21/24 Unknown History mcg-K 50 mcg-lutein 300 mcg tablet (Century Women 50 Plus) ergocalciferol (vitamin D2) 1,250 1,250 mcg PO Q7D@1000 #7 caps 04/27/24 Unknown Rx mcg (50,000 unit) capsule (Vitamin D2) meclizine 12.5 mg tablet 12.5 mg PO TID PRN PRN Dizziness 04/27/24 Unknown Rx #10 tabs baclofen 5 mg tablet 5 mg PO TID 05/20/24 Unknown History hydromorphone 2 mg tablet 2 mg PO Q6H PRN pain 05/20/24 Unknown History sennosides 8.6 mg tablet (Isidra-william) 8.6 mg PO BID 05/20/24 Unknown History spironolactone 25 mg tablet 25 mg PO DAILY #30 tabs 05/20/24 Unknown Rx gabapentin 600 mg tablet 300 - 600 mg PO Q8H PRN PRN pain 05/27/24 Unknown History Allergy/AdvReac Type Severity Reaction Status Date / Time bupropion (From Wellbutrin) Allergy Severe Anaphylaxis Verified 05/27/24 16:04 Penicillins (PCN) Allergy Severe Anaphylaxis Verified 05/27/24 16:04 cariprazine (From Vraylar) AdvReac Severe Delirium/severe Verified 05/27/24 16:04 agitation quetiapine (From Seroquel) AdvReac Severe Delirium/severe Verified 05/27/24 16:04 agitation levetiracetam (From Keppra) AdvReac Other Verified 05/27/24 16:04 Family History Aunt Cancer Sister Cancer Surgical History History of right mastectomy History of lumpectomy of right breast Social History household members: spouse housing: other details: One-story house with a basement. Laundry is upstairs number of children: 1 current occupational status: retired Smoking Status: Never smoker Electronic Cigarette Use: not used second hand exposure: No alcohol intake: current alcohol intake frequency: holidays/special occasions only substance use type: does not use ROS Constitutional Constitutional: Reports fatigue; Denies chills, fever(s) or malaise Eyes Eyes: Denies blurry vision ENT HEENT: Denies headache(s) or nasal discharge Cardiovascular Cardiovascular: Reports syncope; Denies chest pain or dyspnea on exertion Respiratory/Chest Respiratory/Chest: Denies cough, shortness of breath at rest or shortness of breath with exertion Gastrointestinal Gastrointestinal: Reports constipation, nausea and vomiting; Denies diarrhea Genitourinary Genitourinary: Denies dysuria Neurologic Neurologic: Denies focal weakness, numbness or tremor(s) Psychiatric Psychiatric: Denies anxiety or depression Vital Signs Vital Signs Vital Signs: 05/27/24 16:04 05/27/24 17:04 05/27/24 17:53 Temperature 97.8 F Temperature Source Oral Pulse Rate 86 65 63 Respiratory Rate 18 18 18 Blood Pressure 103/34 L 125/69 H 121/77 H Blood Pressure Mean 57 87 91 Pulse Ox 98 97 94 Oxygen Delivery Method Room Air Room Air Room Air 05/27/24 18:54 05/27/24 20:00 05/27/24 20:11 Temperature 98 F Temperature Source Pulse Rate 64 64 63 Respiratory Rate 16 18 18 Blood Pressure 108/68 108/68 108/68 Blood Pressure Mean 81 81 81 Pulse Ox 98 98 98 Oxygen Delivery Method Room Air Room Air Weight Weight: 188 lb 11.451 oz Body Mass Index (BMI) 34.4 Physical Exam Narrative General: Alert but drowsy, Oriented x3, Cooperative, No apparent distress HEENT: Atraumatic, PERRLA, EOMI, Normocephalic Oral: Moist Mucosa Neck: Supple, No JVD Lungs: Diminished, Normal air movement, No rhonchi, No wheeze, No rales Cardiovascular: Regular rate, Regular Rhythm, Normal S1, Normal S2, No murmurs Abdomen: Soft, Non Tender, Non-Distended, No Hepato-splenomegaly Extremities: No edema, Capillary Refill Less than 3 Seconds Skin: No rashes, No breakdown Musculoskeletal: No Tenderness to Palpation of Joints or Extremities Neurological: No focal neurological deficits, moves all extremities Psych/Mental Status: Normal Affect, Appropriate Results Lab / Micro Data 05/27/24 17:02 05/27/24 17:02 Labs: Laboratory Results - last 24 hr 05/27/24 17:02: WBC 11.2 H, RBC 3.99 L, Hgb 12.4, Hct 39.3, MCV 98.5, MCH 31.1, MCHC 31.6 L, RDW Std Deviation 48.6 H, RDW Coeff of Kenisha 13.3, Plt Count 247, MPV 12.3 H, Immature Gran % (Auto) 0.400, Neut % (Auto) 76.1 H, Lymph % (Auto) 14.5 L, [place] % (Auto) 4.5, Eos % (Auto) 3.8, Baso % (Auto) 0.7, Absolute Neuts (auto) 8.5 H, Absolute Lymphs (auto) 1.62, Nucleated RBC % 0, Sodium 137, Potassium 6.3 H*, Chloride 109 H, Carbon Dioxide 23.0, Anion Gap 4 L, BUN 35 H, Creatinine 2.50 H, Estim Creat Clear Calc 19.74, Est GFR (MDRD) Af Amer 24 L, Est GFR (MDRD) Non-Af 20 L, BUN/Creatinine Ratio 14.0, Glucose 115 H, Calcium 11.0 H, M agnesium 2.9 H, Total Bilirubin 0.80, Direct Bilirubin 0.24, AST 23, ALT 26, A lkaline Phosphatase 123 H, Troponin I High Sens 15, Total Protein 7.4, Albumin 3.8, Globulin 3.6, Lipase 65 05/27/24 18:43: Urine Color Lea, Urine Clarity Clear, Urine pH 6.0, Ur Specific [place] 1.015, Urine Protein 30 H, Urine Glucose (UA) Normal, Urine Ketones Negative, Urine Occult Blood Negative, Urine Nitrite Negative, Urine Bilirubin Negative, Urine Urobilinogen 1 H, Ur Leukocyte Esterase 25 H, Urine RBC 0 SEEN, Urine WBC 0-5 SEEN, Ur Squamous Epith Cells 0 SEEN, Urine Bacteria RARE, Urine Mucus 0 SEEN Imaging Radiology Impression Chest X-Ray 05/27/24 17:40 IMPRESSION: No acute cardiopulmonary pathology Electronically Signed: Nic Kirk MD at 18:31 EST Reading Location ID and State: [facility] / OR Tel , Service support , Assessment & Plan Assessment/Plan (1) KELSI (acute kidney injury): (2) Vasovagal syncope: PLAN: Plan 1. KELSI and vasovagal syncope due to dehydration as well as medication side effects to her KELSI – Will hold her gabapentin and baclofen given her KELSI – Continue with IV fluids – Will recheck BMP this evening and tomorrow morning – Will hold her losartan and Aldactone secondary to her KELSI and potential hyperkalemia – EKG does not show any signs of potassium toxicity and urine is negative for UTI – She is status post kyphoplasty in April and has been on hydromorphone as well, this will be discontinued during this hospitalization and on discharge 2. Essential HTN/chronic systolic CHF/HLD – Echo on 05/17/2024 with an EF of 30% – Continue with her Coreg and Lipitor as well as aspirin but will hold her losartan and Aldactone secondary to her KELSI – Will monitor and make adjustments as necessary 3. Recent compression fracture of T10 status post kyphoplasty in the setting of osteoporosis – Continue with her alendronate every Thursday – Will hold all of her pain medications, and discontinue narcotics as well as her gabapentin given her KELSI 4. GERD – Stable – Continue with PPI DVT: SCDs 75 minutes was spent on direct patient care, including documentation as well as chart review and collaboration with colleagues Charges/Coding Visit Charges Inpatient E&M: 42082 Init Hosp L3
[2024-05-27] MEDS: 0.9% Normal Saline (1000mL) 1,000 ML 150 ML IV (20:53)
[2024-05-27] MEDS: Ascorbic Acid 500 MG Tablet PO (22:22)
[2024-05-27] MEDS: Acetaminophen 500 MG Tablet 1000 MG PO (22:22)
[2024-05-27] MEDS: Atorvastatin Calcium 40 MG Tablet PO (22:22)
[2024-05-27] MEDS: Latanoprost 0.005% 1 Bottle 1 DRP EACH EYE (22:25)
[2024-05-28 02:56] VITALS: BP 113/51; PULSE 62; RESP 18; TEMP 36.6; O2SAT 98
[2024-05-28] MEDS: Oxymetazoline 0.05% 1 SPRAY SPRAY.BTL NASAL ×2 (03:30→13:12)
[2024-05-28] MEDS: 0.9% Normal Saline (1000mL) 1,000 ML 100 ML IV ×2 (05:23→16:53)
[2024-05-28] MEDS: Acetaminophen 500 MG Tablet 1000 MG PO ×3 (05:23→23:14)
[2024-05-28 07:42] LABS: Absolute Lymphocyte Count 2.59 X10^3/uL (0.83-4.51); Absolute Neutrophil Count 4.3 X10^3/uL (2.0-7.7); Basophil# 0.08 X10^3/uL; Eosinophil# 0.34 X10^3/uL; Eosinophils% 4.3 % (0-5); Hematocrit 37.3 % (37-47); Hemoglobin 11.6 g/dL (12.0-15.0); Lymphocyte # 2.59 X10^3/ul (0.83-4.51); Lymphocyte % 32.7 % (19-41); Mean Corp Hgb Conc 31.1 g/dL (32-36); Mean Corpuscular Hgb 30.6 pg (27.0-32.0); Mean Corpuscular Volume 98.4 fL (81-99); Mean Platelet Vol. 12.1 fl (6.2-12.0); Monocyte# 0.61 X10^3/uL; Monocyte% 7.7 % (0-10); NRBC Flagged by Analyzer 0 % (0-5); Neutrophil # 4.28 X10^3/uL (2.7-7.7); Neutrophil % 53.9 % (47-70); Platelet Count 228 K/mm3 (150-450); RBC Distribution Width CV 13.3 % (11.6-14.6); RBC Distribution Width SD 48.6 fl (35.1-43.9); Red Blood Count 3.79 M/mm3 (4.2-5.4); White Blood Count 7.9 K/mm3 (4.4-11.0)
[2024-05-28 08:13] LABS: Anion Gap 3 (5-15); BUN 32 mg/dL (7-18); Calcium,Total 10.1 mg/dL (8.5-10.1); Chloride 115 mmol/L (98-107); Creatinine, Serum 1.78 mg/dL (0.55-1.02); EST Glomerular Filtration Rate 30 mL/min (>60); Est Glom Filt Rate - Afr Amer 36 mL/min (>60); Estimated Creatinine Clearance 27.27 ml/min; Glucose 81 mg/dL (74-106); Potassium 6.5 mmol/L (3.5-5.1); Sodium Level 137 mmol/L (136-145)
[2024-05-28] MEDS: Dextrose 10%-Water 250 ML 999 ML IV (08:59)
[2024-05-28] MEDS: Insulin Lispro 10 UNIT in Syringe 0 ML 6 UNIT IV (08:59)
[2024-05-28 09:00] VITALS: BP 113/60; PULSE 64; RESP 18; TEMP 37.2; O2SAT 100
[2024-05-28] MEDS: Calcium Gluconate 1 GM/10 ML Vial IVP (09:03)
[2024-05-28] MEDS: Sodium Bicarbonate 8.4% 50 ML Syringe 100 MEQ IV (09:09)
[2024-05-28] MEDS: Sodium Polystyrene Sulfonate 15 GM/60 ML UDC PO (09:09)
[2024-05-28] MEDS: Aspirin E.C. 81 MG Tablet PO (09:11)
[2024-05-28] MEDS: Pantoprazole Sodium 20 MG Tablet PO (09:11)
[2024-05-28] MEDS: Carvedilol 12.5 MG Tablet PO ×2 (09:12→16:54)
[2024-05-28] MEDS: Ascorbic Acid 500 MG Tablet PO ×2 (09:12→23:14)
--- NOTE | 2024-05-28 10:20 | EKG12_ITS ---
Test Reason : Blood Pressure : */* mmHG Vent. Rate : 63 BPM Atrial Rate : 63 BPM P-R Int : 212 ms QRS Dur : 150 ms QT Int : 444 ms P-R-T Axes : 38 -64 108 degrees QTcB Int : 454 ms Sinus rhythm with 1st degree A-V block Left axis deviation Left bundle branch block Abnormal ECG When compared with ECG of 27-May-2024 16:17, MANUAL COMPARISON REQUIRED DATA IS UNCONFIRMED Confirmed by TRACY DUBOSE, DERIC ([id number]), makeup editor MUNA SHAIKH ([id number]) on 05/30/2024 8:36:30 AM Referred By: Vivek Garnett Confirmed By: DERIC MOLINA MD
--- NOTE | 2024-05-28 11:02 | PCM.PN.HOSP ---
Reason for Visit Reason for Visit: Diagnoses Acute kidney failure, unspecified (05/27/24) Syncope and collapse (05/27/24) Subjective Subjective Saw patient at bedside this morning. Patient was just getting back into bed with the distance of nursing when I saw her. She was mildly fatigued appearing but otherwise conversing normally and in no acute distress. She reported feeling improved from energy standpoint after IV fluid resuscitation yesterday. Denied any fevers or chills. Denied any other new concerns today. Objective Data Objective Data Vital Signs: Vital Signs Temp Pulse Resp BP Pulse Ox O2 Del Method 98.9 F 64 18 113/60 100 Room Air 05/28/24 09:00 05/28/24 09:00 05/28/24 09:00 05/28/24 09:00 05/28/24 09:00 05/28/24 09:00 Oxygen Delivery Method Room Air Weight: 83 kg Body Mass Index (BMI) 33.5 Intake & Output: Intake and Output for Last 24 Hours 05/26/24 05/27/24 05/28/24 23:59 23:59 23:59 Intake Total 1275 / 1275 1333.33 / 1333.33 Balance 1275 / 1275 1333.33 / 1333.33 Lab / Micro Data 05/28/24 07:15 05/28/24 11:55 Labs: Laboratory Results - last 24 hr 05/27/24 17:02: WBC 11.2 H, RBC 3.99 L, Hgb 12.4, Hct 39.3, MCV 98.5, MCH 31.1, MCHC 31.6 L, RDW Std Deviation 48.6 H, RDW Coeff of Kenisha 13.3, Plt Count 247, MPV 12.3 H, Immature Gran % (Auto) 0.400, Neut % (Auto) 76.1 H, Lymph % (Auto) 14.5 L, [place] % (Auto) 4.5, Eos % (Auto) 3.8, Baso % (Auto) 0.7, Absolute Neuts (auto) 8.5 H, Absolute Lymphs (auto) 1.62, Nucleated RBC % 0, Sodium 137, Potassium 6.3 H*, Chloride 109 H, Carbon Dioxide 23.0, Anion Gap 4 L, BUN 35 H, Creatinine 2.50 H, Estim Creat Clear Calc 19.74, Est GFR (MDRD) Af Amer 24 L, Est GFR (MDRD) Non-Af 20 L, BUN/Creatinine Ratio 14.0, Glucose 115 H, Calcium 11.0 H, Magnesium 2.9 H, Total Bilirubin 0.80, Direct Bilirubin 0.24, AST 23, ALT 26, Alkaline Phosphatase 123 H, Troponin I High Sens 15, Total Protein 7.4, Albumin 3.8, Globulin 3.6, Lipase 65 05/27/24 18:43: Urine Color Lea, Urine Clarity Clear, Urine pH 6.0, Ur Specific [place] 1.015, Urine Protein 30 H, Urine Glucose (UA) Normal, Urine Ketones Negative, Urine Occult Blood Negative, Urine Nitrite Negative, Urine Bilirubin Negative, Urine Urobilinogen 1 H, Ur Leukocyte Esterase 25 H, Urine RBC 0 SEEN, Urine WBC 0-5 SEEN, Ur Squamous Epith Cells 0 SEEN, Urine Bacteria RARE, Urine Mucus 0 SEEN 05/28/24 07:15: WBC 7.9, RBC 3.79 L, Hgb 11.6 L, Hct 37.3, MCV 98.4, MCH 30.6, MCHC 31.1 L, RDW Std Deviation 48.6 H, RDW Coeff of Kenisha 13.3, Plt Count 228, MPV 12.1 H, Immature Gran % (Auto) 0.400, Neut % (Auto) 53.9, Lymph % (Auto) 32.7, [place] % (Auto) 7.7, Eos % (Auto) 4.3, Baso % (Auto) 1.0, Absolute Neuts (auto) 4.3, Absolute Lymphs (auto) 2.59, Nucleated RBC % 0, Sodium 137, Potassium 6.5 H*, Chloride 115 H, Carbon Dioxide 19.0 L, Anion Gap 3 L, BUN 32 H, Creatinine 1.78 H, Estim Creat Clear Calc 27.27, Est GFR (MDRD) Af Amer 36 L, Est GFR (MDRD) Non-Af 30 L, BUN/Creatinine Ratio 18.0, Glucose 81, Calcium 10.1 Radiography Diagnostic Testing: Radiology Impression Chest X-Ray 05/27/24 17:40 IMPRESSION: No acute cardiopulmonary pathology Electronically Signed: Nic Kirk MD at 18:31 EST , Physical Exam Const alert, oriented x3 and no apparent distress Constitutional Narrative: Elderly female, class I obesity, mildly fatigued appearing, otherwise sitting up comfortably in bed, conversing normally, no acute distress. General Appearance: cooperative and comfortable HEENT normocephalic, head/scalp atraumatic, hearing grossly normal bilaterally, nasal mucous membranes and turbinates normal and moist oral mucous membranes Eyes PERRL, EOMs intact bilaterally and conjunctivae normal Neck full ROM Chest inspection of chest normal Resp normal respiratory effort, normal air movement, no use of accessory muscles and clear to auscultation bilaterally Cardio regular rate, regular rhythm, no murmurs and peripheral pulses 2+ throughout GI normal to inspection, nondistended, normoactive bowel sounds, soft to palpation, non-tender and non-distended Back/Spine normal ROM Extremity normal to inspection, full ROM and no pedal edema Skin no rashes or lesions noted Neuro moves all extremities Speech: speech normal Psych mental status grossly normal Assessment & Plan Assessment/Plan (1) Vasovagal syncope: (2) KELSI (acute kidney injury): (3) Acute hyperkalemia: (4) Dehydration: PLAN: Plan Patient is a 73-year-old female who presented [facility] ED on 05/27/2024 after a syncopal episode at home. 1. Syncopal episode with KELSI and dehydration – Suspect syncopal episode was multifactorial from dehydration due to home medications for heart failure and recent diarrhea with post kyphoplasty medications as noted below also contributing. Creatinine 2.50 on admit, baseline around 1.0. Given heavy IV fluid resuscitation on admission, repeat creatinine 1.7 on hospital day 2. Continue to monitor daily BMP and urine output. 2. Hyperkalemia, improving – Potassium 6.5 on admit. Presumed secondary to KELSI and home medications of losartan and spironolactone. EKG with no hyperkalemia changes. Treated with IV fluid resuscitation, insulin and dextrose with repeat potassium 5.1. Continue to monitor daily BMP. 3. Recent T10 compression fracture s/p kyphoplasty in setting of osteoporosis with chronic debility – Patient had T10 kyphoplasty done with Dr. Figueroa here on 04/26. On discharge patient was on baclofen, hydrocodone as needed and gabapentin as needed. Suspected that these medications contributed to her syncopal episode as noted above. Patient also had some postop constipation but with heavy laxatives had profuse diarrhea on day of admission that likely contributed to her dehydration. Continue scheduled Tylenol, holding other medications noted above. Will hold laxatives for now as well. Patient's functional status stable from previous year, planning for discharge home with home health care once medically ready. 4. Chronic HFrEF, chronic LBBB, hypertension, hyperlipidemia – Follows with outpatient cardiology. Most recent echo on 05/17/2024 showed EF 30%, septal motion consistent with bundle branch block. Patient notably had EF 20 to 25% in the past that was suspected secondary to Takotsubo cardiomyopathy so this is improved from previous. Dry on admission as noted above. Continue home carvedilol, holding home losartan and spironolactone. Continue home aspirin and statin. 5. Class I obesity – BMI 33 on admit. Complicates hospital course, care and prognosis. 6. GERD – Continue home PPI. 7. Mild anemia – Hemoglobin 11.6 on admit, stable at baseline 11-12. DVT prophylaxis: Heparin subcu CODE STATUS: Full code, verified Expected disposition: Home, 1 to 2 days Total clinical time spent by myself addressing the patient's medical issues, reviewing all the data, and collaborating with patient's care team: 35 minutes. Charges/Coding Visit Charges Inpatient E&M: 10510 Subs Hosp L2
--- NOTE | 2024-05-28 12:08 | CASEMGMT ---
Addendum entered by Kerline Mendes 05/28/24 12:25: TC to [facility], left vm that pt is admitted and wants to resume on dc. Original Note: RN CM Readmission Note Previous Admission: 04/23/24-04/27/24 Diagnosis: low back pain, N/V DC Disposition: Home with [facility] SN and PT Current Admission: Admitted 05/27/24 Current Diagnosis: KELSI with dehydration Pt dc'd last stay with [facility] SN and PT. Pt states they are still coming to her home and she would like to resume this homecare. Pt denies need for a list of other options for agencies. Pt states she is taking her meds as ordered, her sets them up for her twice a day. She states she has followed up with PCP, pain mgmt, and [facility]. Pt has been using a walker at home after having a bout of vertigo. Pt does not anticipate any further homegoing needs this stay. DC Plan: Home, resuming [facility].
[2024-05-28 12:26] LABS: Anion Gap 2 (5-15); BUN 29 mg/dL (7-18); BUN/Creat Ratio 16.2 RATIO (10-20); Chloride 113 mmol/L (98-107); Creatinine, Serum 1.79 mg/dL (0.55-1.02); EST Glomerular Filtration Rate 29 mL/min (>60); Est Glom Filt Rate - Afr Amer 35 mL/min (>60); Estimated Creatinine Clearance 27.12 ml/min; Glucose 173 mg/dL (74-106); Potassium 5.1 mmol/L (3.5-5.1); Sodium Level 140 mmol/L (136-145)
[2024-05-28 14:00] VITALS: PULSE 60
[2024-05-28 15:00] VITALS: BP 116/54; PULSE 68; RESP 17; TEMP 37; O2SAT 94
[2024-05-28] MEDS: Latanoprost 0.005% 1 Bottle 1 DRP EACH EYE (23:13)
[2024-05-28] MEDS: Atorvastatin Calcium 40 MG Tablet PO (23:16)
[2024-05-28] MEDS: Polyethylene Glycol 3350 17 GM PACKET PO (23:18)
[2024-05-29 03:04] VITALS: BP 125/58; PULSE 73; RESP 16; TEMP 36.7; O2SAT 95
[2024-05-29 05:37] LABS: Anion Gap 3 (5-15); BUN 22 mg/dL (7-18); BUN/Creat Ratio 15.4 RATIO (10-20); Calcium,Total 9.8 mg/dL (8.5-10.1); Chloride 115 mmol/L (98-107); Creatinine, Serum 1.43 mg/dL (0.55-1.02); EST Glomerular Filtration Rate 38 mL/min (>60); Est Glom Filt Rate - Afr Amer 46 mL/min (>60); Estimated Creatinine Clearance 33.95 ml/min; Glucose 95 mg/dL (74-106); Potassium 5.2 mmol/L (3.5-5.1); Sodium Level 140 mmol/L (136-145)
[2024-05-29] MEDS: Polyethylene Glycol 3350 17 GM PACKET PO (06:21)
[2024-05-29] MEDS: Acetaminophen 500 MG Tablet 1000 MG PO ×3 (06:21→20:30)
[2024-05-29 08:00] VITALS: PULSE 66
[2024-05-29 09:00] VITALS: BP 129/68; PULSE 72; RESP 18; TEMP 36.4; O2SAT 93
[2024-05-29] MEDS: Ascorbic Acid 500 MG Tablet PO ×2 (10:06→20:30)
[2024-05-29] MEDS: Aspirin E.C. 81 MG Tablet PO (10:06)
[2024-05-29] MEDS: Carvedilol 12.5 MG Tablet PO ×2 (10:06→17:09)
[2024-05-29] MEDS: Pantoprazole Sodium 20 MG Tablet PO (10:06)
--- NOTE | 2024-05-29 10:11 | PCM.PN.HOSP ---
Reason for Visit Reason for Visit: Diagnoses Dehydration (05/27/24) Hyperkalemia (05/27/24) Acute kidney failure, unspecified (05/27/24) Syncope and collapse (05/27/24) Subjective Subjective Saw patient at bedside this morning. Patient was sitting up in bedside chair. She was fatigued appearing and stated she had an episode in bed this morning where she felt like she was going to pass out. She did not actually have an episode of syncope. She was not doing anything at the time. She denies having any lightheadedness or dizziness with walking around the room over the last few days. She otherwise denies any new concerns today. Objective Data Objective Data Vital Signs: Vital Signs Temp Pulse Resp BP Pulse Ox O2 Del Method 98.1 F 73 16 125/58 H 95 Room Air 05/29/24 03:04 05/29/24 03:04 05/29/24 03:04 05/29/24 03:04 05/29/24 03:04 05/29/24 03:08 Oxygen Delivery Method Room Air Weight: 83 kg Body Mass Index (BMI) 33.5 Intake & Output: Intake and Output for Last 24 Hours 05/27/24 05/28/24 05/29/24 23:59 23:59 23:59 Intake Total 1275 / 1275 2633.33 / 2933.33 1600 / 1600 Balance 1275 / 1275 2633.33 / 2933.33 1600 / 1600 Lab / Micro Data 05/28/24 07:15 05/29/24 04:52 Labs: Laboratory Results - last 24 hr 05/28/24 11:55: Sodium 140, Potassium 5.1, Chloride 113 H, Carbon Dioxide 25.0, Anion Gap 2 L, BUN 29 H, Creatinine 1.79 H, Estim Creat Clear Calc 27.12, Est GFR (MDRD) Af Amer 35 L, Est GFR (MDRD) Non-Af 29 L, BUN/Creatinine Ratio 16.2, Glucose 173 H, Calcium 10.0 05/29/24 04:52: Sodium 140, Potassium 5.2 H, Chloride 115 H, Carbon Dioxide 23.0, Anion Gap 3 L, BUN 22 H, Creatinine 1.43 H, Estim Creat Clear Calc 33.95, Est GFR (MDRD) Af Amer 46 L, Est GFR (MDRD) Non-Af 38 L, BUN/Creatinine Ratio 15.4, Glucose 95, Calcium 9.8 Physical Exam Const alert, oriented x3 and no apparent distress Constitutional Narrative: Elderly female, class I obesity, mildly fatigued appearing, otherwise sitting up comfortably in bedside chair, conversing normally, no acute distress. General Appearance: cooperative and comfortable HEENT normocephalic, head/scalp atraumatic, hearing grossly normal bilaterally, nasal mucous membranes and turbinates normal and moist oral mucous membranes Eyes PERRL, EOMs intact bilaterally and conjunctivae normal Neck full ROM Chest inspection of chest normal Resp normal respiratory effort, normal air movement, no use of accessory muscles and clear to auscultation bilaterally Cardio regular rate, regular rhythm, no murmurs and peripheral pulses 2+ throughout GI normal to inspection, nondistended, normoactive bowel sounds, soft to palpation, non-tender and non-distended Back/Spine normal ROM Extremity normal to inspection, full ROM and no pedal edema Skin no rashes or lesions noted Neuro moves all extremities Speech: speech normal Psych mental status grossly normal Assessment & Plan Assessment/Plan (1) Vasovagal syncope: (2) KELSI (acute kidney injury): (3) Acute hyperkalemia: (4) Dehydration: PLAN: Plan Patient is a 73-year-old female who presented [facility] ED on 05/27/2024 after a syncopal episode at home. 1. Syncopal episode with KELSI and dehydration – Suspect syncopal episode was multifactorial from dehydration due to home medications for heart failure and recent diarrhea with post kyphoplasty medications as noted below also contributing. Creatinine 2.50 on admit, baseline around 1.0. Given heavy IV fluid resuscitation on admission and creatinine is improving. Patient did report presyncopal symptoms again at rest on 05/29 so was given another 1 L of fluids over the course of the day. Continue to monitor daily BMP and urine output. If patient is doing well tomorrow and kidney function is about back to baseline, will likely be okay for discharge home. Have been holding home losartan and spironolactone with blood pressures low normal range, will need to determine if they should be held on discharge. 2. Hyperkalemia, improving – Potassium 6.5 on admit. Presumed secondary to KELSI and home medications of losartan and spironolactone. EKG with no hyperkalemia changes. Treated with IV fluid resuscitation, insulin and dextrose with repeat potassium 5.1. Continue to monitor daily BMP. 3. Recent T10 compression fracture s/p kyphoplasty in setting of osteoporosis with chronic debility – Patient had T10 kyphoplasty done with Dr. Figueroa here on 04/26. On discharge patient was on baclofen, hydrocodone as needed and gabapentin as needed. Suspected that these medications contributed to her syncopal episode as noted above. Patient also had some postop constipation but with heavy laxatives had profuse diarrhea on day of admission that likely contributed to her dehydration. Continue scheduled Tylenol, holding other medications noted above. Patient's functional status stable from previous, planning for discharge home with home health care once medically ready. 4. Chronic HFrEF, chronic LBBB, hypertension, hyperlipidemia – Follows with outpatient cardiology. Most recent echo on 05/17/2024 showed EF 30%, septal motion consistent with bundle branch block. Patient notably had EF 20 to 25% in the past that was suspected secondary to Takotsubo cardiomyopathy so this is improved from previous. Dry on admission as noted above. Continue home carvedilol, holding home losartan and spironolactone. Continue home aspirin and statin. 5. Class I obesity – BMI 33 on admit. Complicates hospital course, care and prognosis. 6. GERD – Continue home PPI. 7. Mild anemia – Hemoglobin 11.6 on admit, stable at baseline 11-12. DVT prophylaxis: Heparin subcu CODE STATUS: Full code, verified Expected disposition: Home with [facility], 1 to 2 days Total clinical time spent by myself addressing the patient's medical issues, reviewing all the data, and collaborating with patient's care team: 35 minutes. Charges/Coding Visit Charges Inpatient E&M: 15606 Subs Hosp L2
[2024-05-29] MEDS: Senna/Docusate Sodium 1 Tablet PO (12:04)
[2024-05-29] MEDS: 0.45% Normal Saline 1,000 ML 150 ML IV (12:05)
[2024-05-29 14:00] VITALS: PULSE 74
[2024-05-29 15:00] VITALS: BP 124/67; PULSE 76; RESP 19; TEMP 36.6; O2SAT 94
[2024-05-29 20:27] VITALS: BP 116/62; PULSE 85; RESP 16; TEMP 36.7; O2SAT 93
[2024-05-29] MEDS: Atorvastatin Calcium 40 MG Tablet PO (20:30)
[2024-05-29] MEDS: Latanoprost 0.005% 1 Bottle 1 DRP EACH EYE (20:31)
[2024-05-30 03:14] VITALS: BP 120/77; PULSE 77; RESP 16; TEMP 36.8; O2SAT 94
[2024-05-30] MEDS: Acetaminophen 500 MG Tablet 1000 MG PO ×2 (04:53→13:19)
[2024-05-30 07:57] LABS: Hemoglobin 13.3 g/dL (12.0-15.0); Mean Corp Hgb Conc 31.7 g/dL (32-36); Mean Corpuscular Hgb 30.6 pg (27.0-32.0); Mean Corpuscular Volume 96.6 fL (81-99); Mean Platelet Vol. 12.5 fl (6.2-12.0); Platelet Count 255 K/mm3 (150-450); RBC Distribution Width CV 13.1 % (11.6-14.6); RBC Distribution Width SD 46.5 fl (35.1-43.9); Red Blood Count 4.35 M/mm3 (4.2-5.4); White Blood Count 10.9 K/mm3 (4.4-11.0)
[2024-05-30 08:20] LABS: Anion Gap 7 (5-15); BUN 19 mg/dL (7-18); BUN/Creat Ratio 15.4 RATIO (10-20); Calcium,Total 10.3 mg/dL (8.5-10.1); Chloride 115 mmol/L (98-107); Creatinine, Serum 1.23 mg/dL (0.55-1.02); EST Glomerular Filtration Rate 45 mL/min (>60); Est Glom Filt Rate - Afr Amer 55 mL/min (>60); Estimated Creatinine Clearance 39.47 ml/min; Glucose 97 mg/dL (74-106); Potassium 5.3 mmol/L (3.5-5.1); Sodium Level 142 mmol/L (136-145)
[2024-05-30 08:30] VITALS: BP 129/67; PULSE 73; PULSE 83; RESP 16; TEMP 36.5; O2SAT 98
[2024-05-30] MEDS: Aspirin E.C. 81 MG Tablet PO (09:13)
[2024-05-30] MEDS: Carvedilol 12.5 MG Tablet PO (09:13)
[2024-05-30] MEDS: Pantoprazole Sodium 20 MG Tablet PO (09:13)
[2024-05-30] MEDS: Ascorbic Acid 500 MG Tablet PO ×2 (09:13)
--- NOTE | 2024-05-30 11:05 | DCINST_ITS ---
Discharge Instructions Diet Discharge Diet: Low fat / Low cholesterol and 2000 mg Sodium Diet DC O2, CPAP, BIPAP needs Home O2 Discharge instructions: No Dressing / Incision Discharge Activity: Return to Normal Activity Weight Bearing Status: Weight bearing as tolerated Dressing / Incision Call your doctor if you observe: Fever of 101 or Higher, Coldness, Increased Pain, Numbness or Tingling, Change in Color, Inability to urinate, Inability to have a bowel movement, Shortness of breath, Dizziness, Fainting spells, Swelling in the ankles, Chest pain, Prolonged hiccupping, Increased palpitations (irregular heartbeat) and Calf discomfort Follow Up Care When: IN 2 WEEKS Test Results: Test results from this visit will be discussed in further detail at your follow- up appointment, if applicable. Discharge Plan Admission Admit Date/Time: 05/27/24 20:12 Attending Provider: Wayne Bradley Primary Care Provider: Bo Nicholas Consulting Providers: Vivek Garnett; Geovanny Avery Discharge Orders/Prescriptions Prescriptions: Continued omeprazole 20 mg capsule,delayed release(DR/EC) 20 mg PO DAILY carvedilol 12.5 mg tablet 12.5 mg PO BIDCM sennosides [Isidra-william] 8.6 mg tablet 8.6 mg PO BID baclofen 5 mg tablet 5 mg PO TID hydromorphone 2 mg tablet 2 mg PO Q6H PRN (Reason: pain) latanoprost 1 DROP bottle 1 drp EACH EYE QHS Patient Comments: GLAUCOMA alendronate 70 mg tablet 70 mg PO CHONG aspirin 81 mg Tablet,Delayed Release (Dr/Ec) 81 mg PO BREAKFAST Qty: 0 0RF nitroglycerin 0.4 mg Tablet, Sublingual 0.4 mg sublingual Q5M PRN (Reason: Cardiac/Chest Pain) Qty: 0 0RF Century Women 50 Plus 8 mg iron-400 mcg-50 mcg tablet 1 tab PO DAILY d-mannose 500 mg capsule 500 mg PO BID atorvastatin 40 mg tablet 40 mg PO DAILY ergocalciferol (vitamin D2) [Vitamin D2] 1,250 mcg (50,000 unit) Capsule 1,250 mcg PO Q7D@1000 Qty: 7 0RF meclizine 12.5 mg Tablet 12.5 mg PO TID PRN PRN (Reason: Dizziness) Qty: 10 0RF ascorbic acid (vitamin C) [Vitamin C] 500 mg tablet 500 mg PO BID gabapentin 600 mg tablet 300 - 600 mg PO Q8H PRN PRN (Reason: pain) Patient Comments: takes 300mg BID Held losartan 50 mg tablet 50 mg PO .COMPLEX Hold Instructions: Hold for 1 week Rx Instructions: 50 mg orally twice daily Discontinued spironolactone 25 mg tablet 25 mg PO DAILY Qty: 30 11RF magnesium 200 mg tablet 250 mg PO DAILY meloxicam 15 mg tablet 15 mg PO DAILY Referrals / Follow Up: Bo Nicholas MD [Primary Care Provider] - Within 1 Week (Follow-up BMP in 1 week.) Disposition Disposition (needs filled in before D/C Order can be placed): Home Health Service
--- NOTE | 2024-05-30 12:09 | CASEMGMT ---
BELEN ASIF spoke with therapist, pt ambulated 240 feet today. BELEN ASIF into pt room, pt states she is happy to go home. She is aware that [facility] will be in touch with her to set up a time to come to the home. Pt denies any further homegoing needs. TC karyna Richard at [facility], she is aware pt will dc and they will see pt on . Placed on dc instructions.
--- NOTE | 2024-05-30 12:09 | PCM.DC.SUM ---
Providers Date of Admission: 05/27/24 Date of Discharge: 05/30/24 Primary Care Physician: Dr. Bo Nicholas MD Reason For Visit: KELSI WITH DEHYDRATION Diagnosis Discharge Diagnosis (1) Vasovagal syncope: Status: Acute Code(s): R55 - Syncope and collapse (2) KELSI (acute kidney injury): Status: Acute Code(s): N17.9 - Acute kidney failure, unspecified (3) Acute hyperkalemia: Status: Acute Code(s): E87.5 - Hyperkalemia (4) Dehydration: Status: Resolved Code(s): E86.0 - Dehydration Plan Patient is a 73-year-old female who presented [facility] ED on 05/27/2024 after a syncopal episode at home. 1. Syncopal episode, multifactorial: Patient was admitted on the monitored bed. – Suspect syncopal episode was multifactorial from dehydration due to home medications for heart failure and recent diarrhea with post kyphoplasty medications as noted below also contributing. Continue to monitor daily BMP and urine output. 2. KELSI with hyperkalemia and dehydration: Creatinine 2.50 on admit, baseline around 1.0. Potassium 6.5 on admit. Presumed secondary to KELSI and home medications of losartan and spironolactone. EKG with no hyperkalemia changes. Treated with IV fluid resuscitation, insulin and dextrose with repeat potassium 5.1. Given heavy IV fluid resuscitation on admission and creatinine is improving. Patient did report presyncopal symptoms again at rest on 05/29 so was given another 1 L of fluids over the course of the day. 05/30: Labs today showed potassium 5.3. Creatinine 1.23. Bicarb 19 anion gap normal –Spironolactone discontinued. Hold losartan for 1 week. Advised outpatient BMP monitor in 1 week with PCP 3. Recent T10 compression fracture s/p kyphoplasty in setting of osteoporosis with chronic debility – Patient had T10 kyphoplasty done with Dr. Figueroa here on 04/26. On discharge patient was on baclofen, hydrocodone as needed and gabapentin as needed. Suspected that these medications contributed to her syncopal episode as noted above. Patient also had some postop constipation but with heavy laxatives had profuse diarrhea on day of admission that likely contributed to her dehydration. Continue scheduled Tylenol, holding other medications noted above. Meloxicam discontinued. Advised to follow-up pain medication. PT and OT was done and patient was on the walker. 4. Chronic HFrEF, chronic LBBB, hypertension, hyperlipidemia – Follows with outpatient cardiology. Most recent echo on 05/17/2024 showed EF 30%, septal motion consistent with bundle branch block. Patient notably had EF 20 to 25% in the past that was suspected secondary to Takotsubo cardiomyopathy so this is improved from previous. Dry on admission as noted above. Continue home carvedilol, holding home losartan and spironolactone. Continue home aspirin and statin. 5. Class I obesity – BMI 33 on admit. Complicates hospital course, care and prognosis. 6. GERD – Continue home PPI. 7. Mild anemia – Hemoglobin 11.6 on admit, stable at baseline 04-19. DVT prophylaxis: Heparin subcu Discharge medication reconciliation done. Discharge follow-up instructions completed. Discharge process discussed with the patient and all questions were answered to patient's satisfaction. Follow with PCP in 1 to 2 weeks Total time spent, exact 35 minutes on discharge meds reconciliation, examination, coordination of care with nurses and ancillary staff, review of imaging and blood test and discussion with the patient on follow-up instructions. Medications at Discharge Home Medications latanoprost 0.005 % eye drops 1 drp EACH EYE QHS Eye drops 08/10/14 omeprazole 20 mg capsule,delayed release 20 mg PO DAILY GERD 08/30/20 alendronate 70 mg tablet 70 mg PO CHONG Bone health 07/06/23 aspirin 81 mg tablet,delayed release 81 mg PO BREAKFAST heart health #0 tabs 07/29/23 nitroglycerin 0.4 mg sublingual tablet 0.4 mg sublingual Q5M PRN Cardiac/Chest Pain #0 tabs 07/29/23 ascorbic acid (vitamin C) 500 mg tablet (Vitamin C) 500 mg PO BID 01/01/24 losartan 50 mg tablet 50 mg PO .COMPLEX blood pressure 01/01/24 carvedilol 12.5 mg tablet 12.5 mg PO BIDCM Hypertension 01/04/24 atorvastatin 40 mg tablet 40 mg PO DAILY cholesterol 04/21/24 d-mannose 500 mg capsule 500 mg PO BID 04/21/24 [id number] 8 mg-folic 400 mcg-K 50 mcg-lutein 300 mcg tablet (Century Women 50 Plus) 1 tab PO DAILY 04/21/24 ergocalciferol (vitamin D2) 1,250 mcg (50,000 unit) capsule (Vitamin D2) 1,250 mcg PO Q7D@1000 #7 caps 04/27/24 meclizine 12.5 mg tablet 12.5 mg PO TID PRN PRN Dizziness #10 tabs 04/27/24 baclofen 5 mg tablet 5 mg PO TID 05/20/24 hydromorphone 2 mg tablet 2 mg PO Q6H PRN pain 05/20/24 sennosides 8.6 mg tablet (Isidra-william) 8.6 mg PO BID 05/20/24 gabapentin 600 mg tablet 300 - 600 mg PO Q8H PRN PRN pain 05/27/24 Physical Exam Narrative Seen and examined. I talked to the patient's at the bedside. Discussed about the syncope. Conveyed the message about discontinuation of his spironolactone hold meloxicam for KELSI and hyperkalemia. Hold losartan. Follow with PCP Physical exam General: Alert, Oriented x3, Cooperative. BMI 33.5 kg/m² HEENT: Atraumatic, PERRLA, EOMI, Normocephalic Oral: No Gingival or Mucosal Lesions/ Ulcerations Neck: Supple, No JVD, Negative Carotid Bruits Chest wall/Lungs: Air entry diminished in bilateral lung bases. No crepitation/rhonchi Cardiovascular: Regular rate, Regular Rhythm, Normal S1, Normal S2, No M/G/R Abdomen: Bowel Sounds Present, Soft, Non Tender, Non-Distended : No dysuria. No renal angle tenderness. No suprapubic tenderness. 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 ROM restricted. No Tenderness to Palpation of Joints or Extremities Neurological: Cranial nerves II-XII grossly intact, DTR 2+/4. No acute focal neurological deficit. Psych/Mental Status: Normal Affect, Appropriate. Weight / BMI Weight Weight: 182 lb 15.739 oz Body Mass Index (BMI) 33.5 ABG / Lab / Microbiology Data 05/30/24 07:35 05/30/24 07:35 Laboratory: Laboratory Results - last 24 hr 05/30/24 07:35: WBC 10.9, RBC 4.35, Hgb 13.3, Hct 42.0, MCV 96.6, MCH 30.6, MCHC 31.7 L, RDW Std Deviation 46.5 H, RDW Coeff of Kenisha 13.1, Plt Count 255, MPV 12.5 H, Sodium 142, Potassium 5.3 H, Chloride 115 H, Carbon Dioxide 19.0 L, Anion Gap 7, BUN 19 H, Creatinine 1.23 H, Estim Creat Clear Calc 39.47, Est GFR (MDRD) Af Amer 55 L, Est GFR (MDRD) Non-Af 45 L, BUN/Creatinine Ratio 15.4, Glucose 97, Calcium 10.3 H D/C Instructions Discharge Diet: Low fat / Low cholesterol and 2000 mg Sodium Diet Weight Bearing Status: Weight bearing as tolerated Call your doctor if you observe: Fever of 101 or Higher, Coldness, Increased Pain, Numbness or Tingling, Change in Color, Inability to urinate, Inability to have a bowel movement, Shortness of breath, Dizziness, Fainting spells, Swelling in the ankles, Chest pain, Prolonged hiccupping, Increased palpitations (irregular heartbeat) and Calf discomfort DC O2, CPAP, BIPAP Needs Home O2 Discharge instructions: No When: IN 2 WEEKS Meaningful Use Info Meaningful Use Meaningful Use Diagnoses (Choose all that apply): None applicable Ischemic Stroke Statin Dosing Therapy Reference: STATIN DOSE THERAPY REFERENCE: * Patients > 75 years receive moderate or high dose statin therapy. * Patients 75 years or YOUNGER should receive HIGH intensity statin dose unless contraindicated. You will be required to document reason for non-treatment if statin daily dose does not meet guidelines. HIGH DOSE STATIN THERAPY DAILY Atorvastatin > than or = to 40 mg Rosuvastatin > than or = to 20 mg Amlodipine + Atorvastatin > than or = to 2.5/40 mg Ezetimibe + Simvastatin 10/80 mg Simvastatin 80mg Discharge Plan Admission Admit Date/Time: 05/27/24 20:12 Attending Provider: Wayne Bradley Primary Care Provider: Bo Nicholas Consulting Providers: Vivek Garnett; Geovanny Avery Discharge Orders/Prescriptions Prescriptions: Continued omeprazole 20 mg capsule,delayed release(DR/EC) 20 mg PO DAILY carvedilol 12.5 mg tablet 12.5 mg PO BIDCM sennosides [Isidra-william] 8.6 mg tablet 8.6 mg PO BID baclofen 5 mg tablet 5 mg PO TID hydromorphone 2 mg tablet 2 mg PO Q6H PRN (Reason: pain) latanoprost 1 DROP bottle 1 drp EACH EYE QHS Patient Comments: GLAUCOMA alendronate 70 mg tablet 70 mg PO CHONG aspirin 81 mg Tablet,Delayed Release (Dr/Ec) 81 mg PO BREAKFAST Qty: 0 0RF nitroglycerin 0.4 mg Tablet, Sublingual 0.4 mg sublingual Q5M PRN (Reason: Cardiac/Chest Pain) Qty: 0 0RF Century Women 50 Plus 8 mg iron-400 mcg-50 mcg tablet 1 tab PO DAILY d-mannose 500 mg capsule 500 mg PO BID atorvastatin 40 mg tablet 40 mg PO DAILY ergocalciferol (vitamin D2) [Vitamin D2] 1,250 mcg (50,000 unit) Capsule 1,250 mcg PO Q7D@1000 Qty: 7 0RF meclizine 12.5 mg Tablet 12.5 mg PO TID PRN PRN (Reason: Dizziness) Qty: 10 0RF ascorbic acid (vitamin C) [Vitamin C] 500 mg tablet 500 mg PO BID gabapentin 600 mg tablet 300 - 600 mg PO Q8H PRN PRN (Reason: pain) Patient Comments: takes 300mg BID Held losartan 50 mg tablet 50 mg PO .COMPLEX Hold Instructions: Hold for 1 week Rx Instructions: 50 mg orally twice daily Discontinued spironolactone 25 mg tablet 25 mg PO DAILY Qty: 30 11RF magnesium 200 mg tablet 250 mg PO DAILY meloxicam 15 mg tablet 15 mg PO DAILY Referrals / Follow Up: Bo Nicholas MD [Primary Care Provider] - Within 1 Week (Follow-up BMP in 1 week.) Disposition Disposition (needs filled in before D/C Order can be placed): Home Health Service Charges/Coding Visit Charges Inpatient E&M: 87283 Disch Hosp >30min
[2024-05-30 13:45] VITALS: BP 150/74; PULSE 73; RESP 16; TEMP 36.5; O2SAT 97
== END 2024-05-30 13:54 | disposition home health service (06) | DRG 641 ==
LOC: ED 20:18 → MS3 20:34
PROVIDERS: Hospitalist; Admitting Provider Family Medicine; Emergency Provider Emergency Medicine; PCP Family Medicine; Referring Provider Family Medicine; Visit Provider Internal Medicine
DX: E86.0 Dehydration (principal); F33.1 Major depressive disorder, recurrent, moderate; I50.22 Chronic systolic (congestive) heart failure; K52.1 Toxic gastroenteritis and colitis; I11.0 Hypertensive heart disease with heart failure; D64.9 Anemia, unspecified; E66.811 Obesity, class 1; I25.2 Old myocardial infarction; E78.5 Hyperlipidemia, unspecified; I25.10 Atherosclerotic heart disease of native coronary artery without angina pectoris; K21.9 Gastro-esophageal reflux disease without esophagitis; E87.5 Hyperkalemia; I44.7 Left bundle-branch block, unspecified; M17.0 Bilateral primary osteoarthritis of knee; M16.0 Bilateral primary osteoarthritis of hip; R55 Syncope and collapse; T47.4X5A Adverse effect of other laxatives, initial encounter; T46.5X5A Adverse effect of other antihypertensive drugs, initial encounter; T50.0X5A Adverse effect of mineralocorticoids and their antagonists, initial encounter; T42.8X5A Adverse effect of antiparkinsonism drugs and other central muscle-tone depressants, initial encounter; T42.6X5A Adverse effect of other antiepileptic and sedative-hypnotic drugs, initial encounter; T40.2X5A Adverse effect of other opioids, initial encounter; M81.0 Age-related osteoporosis without current pathological fracture; Z86.73 Personal history of transient ischemic attack (TIA), and cerebral infarction without residual deficits; Z87.19 Personal history of other diseases of the digestive system; Z85.3 Personal history of malignant neoplasm of breast; Z79.82 Long term (current) use of aspirin; Z88.0 Allergy status to penicillin; Z90.11 Acquired absence of right breast and nipple; Z87.81 Personal history of (healed) traumatic fracture; Z68.33 Body mass index [BMI] 33.0-33.9, adult; Z98.890 Other specified postprocedural states; Z79.899 Other long term (current) drug therapy
CPT/HCPCS: 36415; 71045; 80048; 80076; 81001; 83690; 83735; 84484; 85025; 85027; 93005; 97116; 97162; 97166; 97530; 97535; 99285; P9612; J0612; J2405

== ENCOUNTER → 2024-06-03 | Outpatient (CLI) | payer MEDICARE, SELFPAY | END | disposition home or self-care (01) | LOC: MTLAB 11:28 | PROVIDERS: PCP Family Medicine; Referring Provider Family Medicine; Visit Provider Family Medicine | DX: R30.0 Dysuria (principal) | CPT/HCPCS: 87086; 87088 ==

== ENCOUNTER → 2024-06-16 | Outpatient (CLI) | payer MEDICARE, SELFPAY ==
--- NOTE | 2024-06-16 11:15 | RAD_ITS ---
HISTORY: THORACIC AND LUMBAR SPONDYLOSIS. TECHNIQUE: XR Spine Thoracic 3 Views. COMPARISON: 05/06/2024. FINDINGS: VERTEBRAE: Moderate T10 compression fracture with vertebroplasty again seen. No acute fracture identified. ALIGNMENT: No significant anterior or posterior subluxation. INTERVERTEBRAL DISCS: Mild degenerative endplate changes with osteophytes of the mid to lower thoracic spine. SOFT TISSUES: Decreased left basilar opacity. Probable mild left pleural effusion. RAD/Thoracic Spine 3 Views IMPRESSION: Unchanged appearance of chronic T10 compression fracture with vertebroplasty. Electronically Signed: Dilma Magana MD at 14:58 EST ,
[2024-06-16 12:42] LABS: Anion Gap 5 (5-15); BUN 16 mg/dL (7-18); BUN/Creat Ratio 16.6 RATIO (10-20); Calcium,Total 11.5 mg/dL (8.5-10.1); Chloride 108 mmol/L (98-107); Creatinine, Serum 0.96 mg/dL (0.55-1.02); EST Glomerular Filtration Rate 60 mL/min (>60); Est Glom Filt Rate - Afr Amer 73 mL/min (>60); Glucose 111 mg/dL (74-106); Potassium 4.4 mmol/L (3.5-5.1); Sodium Level 139 mmol/L (136-145)
--- NOTE | 2024-06-16 15:15 | RAD_ITS ---
HISTORY: THORACIC AND LUMBAR SPONDYLOSIS. TECHNIQUE: XR Spine Lumbar Min 4 Views. COMPARISON: 05/06/2024. FINDINGS: VERTEBRAE: Chronic vertebroplasty of T10 compression fracture. Lumbar vertebral body heights maintained. ALIGNMENT: Chronic mild anterolisthesis of L4-5. INTERVERTEBRAL DISCS: Degenerative endplate changes with intervertebral disc space narrowing at multiple levels again seen. SOFT TISSUES: Surgical clips in the pelvis. RAD/L/S Spine Min 4 Views IMPRESSION: No acute fracture or dislocation identified in the lumbar spine. Multilevel degenerative change. Electronically Signed: Dilma Magana MD at 14:44 EST ,
== END | disposition home or self-care (01) ==
PROVIDERS: Physician Assistant Medical; PCP Family Medicine; Referring Provider Anesthesiology; Visit Provider Anesthesiology
DX: M47.816 Spondylosis without myelopathy or radiculopathy, lumbar region (principal); M47.814 Spondylosis without myelopathy or radiculopathy, thoracic region; I51.81 Takotsubo syndrome
CPT/HCPCS: 36415; 72072; 72110; 80048

== ENCOUNTER 2024-06-23 12:39 | Emergency (ER) | payer MEDICARE, SELFPAY ==
[2024-06-23] VITALS (7 sets, daily range): BP systolic 104–135; BP diastolic 61–111; PULSE 65–89; RESP 16–20; TEMP 35.7–36.6; O2SAT 98–100; BMI 33.2
--- NOTE | 2024-06-23 13:04 | EX.ED.DYSGE1 ---
HPI <YAJAIRA Mahoney - Last Filed: 06/23/24 17:46> History of Present Illness Chief Complaint: Chest Pain Narrative Narrative: 73-year-old female with PMH of HTN, HLD, CVA, right carotid endarterectomy, Takotsubo cardiomyopathy states around 12 PM she was sitting and suddenly felt short of breath. She feels like it is hard to take a deep breath. She denies chest pain, palpitations, syncope, nausea or vomiting or diaphoresis. She has no abdominal or back pain. She has no fever or upper respiratory symptoms. She denies history of DVT/PE or risk factors. She is on baby aspirin. PFSH <YAJAIRA Mahoney - Last Filed: 06/23/24 17:46> [facility] Medical History Post-menopausal Back pain due to injury On home oxygen therapy Scarlet fever Heart attack Left bundle branch block Coronary artery disease Cognitive dysfunction Left hemiparesis Leg pain, bilateral Recurrent major depression resistant to treatment STEMI (ST elevation myocardial infarction) Uncontrolled depression Sleep apnea Stroke/cerebrovascular accident Takotsubo cardiomyopathy Uncontrolled hypertension Eosinophilia, unspecified Dermatitis Osteoporosis Closed TBI (traumatic brain injury) Alien hand syndrome Hemianopia of left eye Acute left hemiparesis Glaucoma Obesity (BMI 30.0-34.9) Osteoarthritis GERD (gastroesophageal reflux disease) Depression HTN (hypertension) Subarachnoid hemorrhage Ischemic cerebrovascular accident (CVA) Ulnar neuropathy at elbow of left upper extremity Tendonitis Hyperlipidemia Cerebrovascular disease Left posterior interosseous nerve syndrome Gastric ulcer Left hand weakness History of breast cancer Major depressive disorder, recurrent episode, moderate Lesion of right radial nerve Home Medications ?Medication ?Instructions ?Recorded ?Last Taken ?Type latanoprost 0.005 % eye drops 1 drp EACH EYE QHS Eye drops 08/10/14 07/28/23 History omeprazole 20 mg capsule,delayed 20 mg PO DAILY GERD 08/30/20 07/29/23 History release alendronate 70 mg tablet 70 mg PO CHONG Bone health 07/06/23 Unknown History aspirin 81 mg tablet,delayed 81 mg PO BREAKFAST heart health #0 07/29/23 07/29/23 Rx release tabs nitroglycerin 0.4 mg sublingual 0.4 mg sublingual Q5M PRN 07/29/23 Unknown Rx tablet Cardiac/Chest Pain #0 tabs ascorbic acid (vitamin C) 500 mg 500 mg PO BID 01/01/24 Unknown History tablet (Vitamin C) losartan 50 mg tablet 50 mg PO .COMPLEX blood pressure 01/01/24 Unknown History carvedilol 12.5 mg tablet 12.5 mg PO BIDCM Hypertension 01/04/24 04/26/24 History atorvastatin 40 mg tablet 40 mg PO DAILY cholesterol 04/21/24 Unknown History d-mannose 500 mg capsule 500 mg PO BID 04/21/24 Unknown History kthqvbwm-[id number] 8 mg-folic 400 1 tab PO DAILY 04/21/24 Unknown History mcg-K 50 mcg-lutein 300 mcg tablet (Century Women 50 Plus) ergocalciferol (vitamin D2) 1,250 1,250 mcg PO Q7D@1000 #7 caps 04/27/24 Unknown Rx mcg (50,000 unit) capsule (Vitamin D2) meclizine 12.5 mg tablet 12.5 mg PO TID PRN PRN Dizziness 04/27/24 Unknown Rx #10 tabs baclofen 5 mg tablet 5 mg PO TID 05/20/24 Unknown History hydromorphone 2 mg tablet 2 mg PO Q6H PRN pain 05/20/24 Unknown History sennosides 8.6 mg tablet (Isidra-william) 8.6 mg PO BID 05/20/24 Unknown History gabapentin 600 mg tablet 300 - 600 mg PO Q8H PRN PRN pain 05/27/24 Unknown History amlodipine 5 mg tablet 5 mg PO DAILY 06/23/24 Unknown History estradiol 10 mcg vaginal tablet 10 mcg vaginal 06/23/24 Unknown History polyethylene glycol 3350 17 17 g PO BID 06/23/24 Unknown History gram/dose oral powder (Miralax) spironolactone 25 mg tablet 25 mg PO DAILY 06/23/24 Unknown History Allergy/AdvReac Type Severity Reaction Status Date / Time bupropion (From Wellbutrin) Allergy Severe Anaphylaxis Verified 06/23/24 13:22 Penicillins (PCN) Allergy Severe Anaphylaxis Verified 06/23/24 13:22 cariprazine (From Vraylar) AdvReac Severe Delirium/severe Verified 06/23/24 13:22 agitation quetiapine (From Seroquel) AdvReac Severe Delirium/severe Verified 06/23/24 13:22 agitation [facility] AdvReac Other Verified 06/23/24 13:22 Family History Aunt Cancer Sister Cancer Surgical History History of right mastectomy History of lumpectomy of right breast Social History household members: spouse housing: other details: One-story house with a basement. Laundry is upstairs number of children: 1 current occupational status: retired Smoking Status: Never smoker Electronic Cigarette Use: not used second hand exposure: No alcohol intake: current alcohol intake frequency: holidays/special occasions only substance use type: does not use ROS <YAJAIRA Mahoney - Last Filed: 06/23/24 17:46> ROS ED ROS Narrative Constitutional: Negative for fever, chills, malaise. CVS: Negative for palpitations, chest pain, syncope. Respiratory: Positive for shortness of breath. Negative for cough, orthopnea. GI: Negative for abdominal pain, nausea, vomiting. EXAM <YAJAIRA Mahoney - Last Filed: 06/23/24 17:46> Physical Exam Narrative Exam Narrative: CONST: Patient sitting in no acute distress. EYES: Normal inspection. ENT: Normal inspection, moist mucous membranes. NECK: Normal inspection. RESP: No respiratory distress, CTAB. CVS: Regular rate and rhythm, no murmur, no gallop. ABD: Soft and nontender, no guarding or rebound, nondistended. SKIN: Color normal, no rash, warm, dry, intact. EXTREMITIES: Normal appearance, no pedal edema. NEURO: Alert and answering questions appropriately. PSYCH: Normal affect. Const Vital Signs: 06/23/24 12:40 06/23/24 13:18 06/23/24 13:40 Temperature 96.3 F L Temperature Source Temporal Pulse Rate 70 89 Respiratory Rate 20 H 16 Respiratory Effort Normal Non-Labored Respiratory Pattern Tachypnea Blood Pressure 135/69 H 106/89 H Blood Pressure Mean 91 94 Pulse Ox 100 98 Oxygen Delivery Method Room Air 06/23/24 14:00 06/23/24 15:00 06/23/24 16:00 Temperature Temperature Source Pulse Rate 87 65 68 Respiratory Rate 20 H Respiratory Effort Respiratory Pattern Blood Pressure 112/89 H 105/70 125/86 H Blood Pressure Mean 96 81 99 Pulse Ox 98 100 98 Oxygen Delivery Method 06/23/24 17:00 06/23/24 17:23 Temperature 98 F Temperature Source Pulse Rate 71 75 Respiratory Rate 16 Respiratory Effort Respiratory Pattern Blood Pressure 133/111 H 104/61 Blood Pressure Mean 118 75 Pulse Ox 99 99 Oxygen Delivery Method <Dr. Jesse Hernandez DO - Last Filed: 06/23/24 17:30> Physical Exam Const Vital Signs: 06/23/24 12:40 06/23/24 13:18 06/23/24 13:40 Temperature 96.3 F L Temperature Source Temporal Pulse Rate 70 89 Respiratory Rate 20 H 16 Respiratory Effort Normal Non-Labored Respiratory Pattern Tachypnea Blood Pressure 135/69 H 106/89 H Blood Pressure Mean 91 94 Pulse Ox 100 98 Oxygen Delivery Method Room Air 06/23/24 14:00 06/23/24 15:00 06/23/24 16:00 Temperature Temperature Source Pulse Rate 87 65 68 Respiratory Rate 20 H Respiratory Effort Respiratory Pattern Blood Pressure 112/89 H 105/70 125/86 H Blood Pressure Mean 96 81 99 Pulse Ox 98 100 98 Oxygen Delivery Method 06/23/24 17:00 06/23/24 17:23 Temperature 98 F Temperature Source Pulse Rate 71 75 Respiratory Rate 16 Respiratory Effort Respiratory Pattern Blood Pressure 133/111 H 104/61 Blood Pressure Mean 118 75 Pulse Ox 99 99 Oxygen Delivery Method [facility] <YAJAIRA Mahoney - Last Filed: 06/23/24 17:46> [facility] Narrative Medical decision making narrative: 73-year-old female presents with subjective shortness of breath that she describes as difficulty taking a deep breath. She has no chest pain. No fever or upper respiratory symptoms. She appears well and nontoxic. Her vital signs are stable and she is 100% on room air. She is speaking in full sentences in no distress. Lung sounds are clear. Exam overall benign. CBC and BMP are unremarkable. EKG is nonischemic and troponin is 18. D-dimer of 0.72 is negative with age adjustment. Since life-threatening etiologies have been ruled out and she remains 99% or above on room air I think she can be discharged safely to follow-up with her primary care doctor. She was discharged in stable condition. Differential includes but not limited to pneumonia, pneumothorax, ACS, PE, anxiety Lab Data Attestation: I reviewed the patient's lab results. Labs: Laboratory Results - last 24 hr 06/23/24 06/23/24 06/23/24 13:10 13:10 16:50 WBC Cancelled 8.3 Corrected WBC Cancelled RBC Cancelled 4.49 Hgb Cancelled 14.0 Hct Cancelled 43.2 MCV Cancelled 96.2 MCH Cancelled 31.2 MCHC Cancelled 32.4 RDW Std Deviation Cancelled 49.1 H RDW Coeff of Kenisha Cancelled 13.8 Plt Count Cancelled 136 L MPV Cancelled 12.5 H Immature Gran % (Auto) Cancelled 0.200 Neut % (Auto) Cancelled 57.9 Lymph % (Auto) Cancelled 26.4 Kendall % (Auto) Cancelled 7.6 Eos % (Auto) Cancelled 6.6 H Baso % (Auto) Cancelled 1.3 H Absolute Neuts (auto) Cancelled 4.8 Absolute Lymphs (auto) Cancelled 2.20 Total Counted Cancelled Neutrophils % (Manual) Cancelled Band Neutrophils % Cancelled Lymphocytes % (Manual) Cancelled Monocytes % (Manual) Cancelled Eosinophils % (Manual) Cancelled Basophils % (Manual) Cancelled Metamyelocytes % Cancelled Myelocytes % Cancelled Promyelocytes % Cancelled Blast Cells % Cancelled Plasma Cell % (Manual) Cancelled Other Cells % Cancelled Nucleated RBC % Cancelled 0 Nucleated RBCs/100 WBC Cancelled Differential Comment Cancelled SCANNED Diff Path Review Cancelled Hypersegmented Neuts Cancelled Atypical Lymphocytes Cancelled Reactive Lymphocytes Cancelled Smudge Cells Cancelled Toxic Granulation Cancelled Toxic Vacuolation Cancelled Dohle Bodies Cancelled Carolyn Rods Cancelled Platelet Estimate Cancelled Plt Morphology Comment Cancelled RBC Morphology Cancelled Cancelled Polychromasia Cancelled Hypochromasia Cancelled Basophilic Stippling Cancelled Anisocytosis Cancelled Microcytosis Cancelled Macrocytosis Cancelled Spherocytes Cancelled Sickle Cells Cancelled Target Cells Cancelled Tear Drop Cells Cancelled Ovalocytes Cancelled Stomatocytes Cancelled Gomez-St. Florian Bodies Cancelled Agness Cells Cancelled Bite Cells Cancelled Crenated Cell Cancelled Acanthocytes (Spur) Cancelled Rouleaux Cancelled Schistocytes Cancelled D-Dimer Quant (PE/DVT) 0.72 H* Sodium 140 Potassium 4.8 Chloride 111 H Carbon Dioxide 23.0 Anion Gap 5 BUN 14 Creatinine 0.83 Estim Creat Clear Calc 58.23 Est GFR (MDRD) Af Amer 86 Est GFR (MDRD) Non-Af 71 BUN/Creatinine Ratio 16.9 Glucose 99 Calcium 10.9 H Troponin I High Sens 18 Radiography Diagnostic Testing: Clinical Impression(s) from Imaging Studies Chest X-Ray 06/23/24 13:30 IMPRESSION: No acute cardiopulmonary disease. Electronically Signed: Jacinto Vega MD at 14:26 EST Reading Location ID and State: [facility] / [place] Tel , Service support , ED attending interpretation of 2 view chest x-ray shows normal heart size, no evidence of infiltrate, no pneumothorax. EKG Initial EKG: Attestation: I personally reviewed and interpreted this EKG as follows: Interpretation: Sinus Rhythm, No Acute Injury Pattern and LBBB Comments: Normal sinus rhythm at 87 bpm Left axis deviation, left bundle branch block No acute ischemic change Prior EKG tracings: available for review Prior: Unchanged <Dr. Jesse Hernandez, DO - Last Filed: 06/23/24 17:30> [facility] History & Record Review Discussion w/independent historian: Patient and Significant other Lab Data Labs: Laboratory Results - last 24 hr 06/23/24 06/23/24 06/23/24 13:10 13:10 16:50 WBC Cancelled 8.3 Corrected WBC Cancelled RBC Cancelled 4.49 Hgb Cancelled 14.0 Hct Cancelled 43.2 MCV Cancelled 96.2 MCH Cancelled 31.2 MCHC Cancelled 32.4 RDW Std Deviation Cancelled 49.1 H RDW Coeff of Kenisha Cancelled 13.8 Plt Count Cancelled 136 L MPV Cancelled 12.5 H Immature Gran % (Auto) Cancelled 0.200 Neut % (Auto) Cancelled 57.9 Lymph % (Auto) Cancelled 26.4 Kendall % (Auto) Cancelled 7.6 Eos % (Auto) Cancelled 6.6 H Baso % (Auto) Cancelled 1.3 H Absolute Neuts (auto) Cancelled 4.8 Absolute Lymphs (auto) Cancelled 2.20 Total Counted Cancelled Neutrophils % (Manual) Cancelled Band Neutrophils % Cancelled Lymphocytes % (Manual) Cancelled Monocytes % (Manual) Cancelled Eosinophils % (Manual) Cancelled Basophils % (Manual) Cancelled Metamyelocytes % Cancelled Myelocytes % Cancelled Promyelocytes % Cancelled Blast Cells % Cancelled Plasma Cell % (Manual) Cancelled Other Cells % Cancelled Nucleated RBC % Cancelled 0 Nucleated RBCs/100 WBC Cancelled Differential Comment Cancelled SCANNED Diff Path Review Cancelled Hypersegmented Neuts Cancelled Atypical Lymphocytes Cancelled Reactive Lymphocytes Cancelled Smudge Cells Cancelled Toxic Granulation Cancelled Toxic Vacuolation Cancelled Dohle Bodies Cancelled Carolyn Rods Cancelled Platelet Estimate Cancelled Plt Morphology Comment Cancelled RBC Morphology Cancelled Cancelled Polychromasia Cancelled Hypochromasia Cancelled Basophilic Stippling Cancelled Anisocytosis Cancelled Microcytosis Cancelled Macrocytosis Cancelled Spherocytes Cancelled Sickle Cells Cancelled Target Cells Cancelled Tear Drop Cells Cancelled Ovalocytes Cancelled Stomatocytes Cancelled Gomez-St. Florian Bodies Cancelled Aiden Cells Cancelled Bite Cells Cancelled Crenated Cell Cancelled Acanthocytes (Spur) Cancelled Rouleaux Cancelled Schistocytes Cancelled D-Dimer Quant (PE/DVT) 0.72 H* Sodium 140 Potassium 4.8 Chloride 111 H Carbon Dioxide 23.0 Anion Gap 5 BUN 14 Creatinine 0.83 Estim Creat Clear Calc 58.23 Est GFR (MDRD) Af Amer 86 Est GFR (MDRD) Non-Af 71 BUN/Creatinine Ratio 16.9 Glucose 99 Calcium 10.9 H Troponin I High Sens 18 Radiography Diagnostic Testing: Clinical Impression(s) from Imaging Studies Chest X-Ray 06/23/24 13:30 IMPRESSION: No acute cardiopulmonary disease. Electronically Signed: Jacinto Vega MD at 14:26 EST , Treatment and Re-Evaluation :: I have personally performed a face to face assessment of the patient and have reviewed the ELLA Note. I performed a substantive portion of the visit including all aspects of the following. My lam findings include: History is 73-year-old female presenting with 1 week history of waxing and waning sensation of being unable to take a deep breath. She denies specific chest pain. No cough or fever. She has a history of Takotsubo's cardiomyopathy. She takes a daily aspirin. Exam is afebrile vital signs stable lung sounds are clear and equal. She is 99 to 100% on room air. Heart is regular without murmur Medical Decison Making EKG is nonischemic. D-dimer age corrects into the normal range. Troponin is negative. My independent interpretation of the chest x-ray is no acute process. I do not feel that this is definitively cardiac I do not feel that this is pulmonary embolism aortic dissection or aneurysm. I do not see infectious process. There could be an anxiety component. If the patient is not improving would recommend PCP follow-up return if worsening Discharge Plan Triage Chief Complaint: Chest Pain ED Midlevel Provider: Viki Stubbs ED Provider: Jesse Hernandez Dx/Rx/DC Orders Clinical Impression: Shortness of breath Instructions: ED Dyspnea Prescriptions: No Action omeprazole 20 mg capsule,delayed release(DR/EC) 20 mg PO DAILY carvedilol 12.5 mg tablet 12.5 mg PO BIDCM sennosides [Isidra-william] 8.6 mg tablet 8.6 mg PO BID baclofen 5 mg tablet 5 mg PO TID hydromorphone 2 mg tablet 2 mg PO Q6H PRN (Reason: pain) latanoprost 1 DROP bottle 1 drp EACH EYE QHS Patient Comments: GLAUCOMA alendronate 70 mg tablet 70 mg PO CHONG aspirin 81 mg Tablet,Delayed Release (Dr/Ec) 81 mg PO BREAKFAST Qty: 0 0RF nitroglycerin 0.4 mg Tablet, Sublingual 0.4 mg sublingual Q5M PRN (Reason: Cardiac/Chest Pain) Qty: 0 0RF Century Women 50 Plus 8 mg iron-400 mcg-50 mcg tablet 1 tab PO DAILY d-mannose 500 mg capsule 500 mg PO BID atorvastatin 40 mg tablet 40 mg PO DAILY ergocalciferol (vitamin D2) [Vitamin D2] 1,250 mcg (50,000 unit) Capsule 1,250 mcg PO Q7D@1000 Qty: 7 0RF meclizine 12.5 mg Tablet 12.5 mg PO TID PRN PRN (Reason: Dizziness) Qty: 10 0RF ascorbic acid (vitamin C) [Vitamin C] 500 mg tablet 500 mg PO BID losartan 50 mg tablet 50 mg PO .COMPLEX Rx Instructions: 50 mg orally twice daily gabapentin 600 mg tablet 300 - 600 mg PO Q8H PRN PRN (Reason: pain) Patient Comments: takes 300mg BID amlodipine 5 mg tablet 5 mg PO DAILY spironolactone 25 mg tablet 25 mg PO DAILY estradiol 10 mcg tablet 10 mcg vaginal polyethylene glycol 3350 [Miralax] 17 gram/dose powder 17 g PO BID Primary Care Provider: Bo Nicholas Referrals: Bo Nicholas MD [Primary Care Provider] - Activity Restrictions/Additional Instructions: Your tests do not show a clear cause of your shortness of breath. No signs of heart attacks or blood clots. I recommend you follow-up with your primary care doctor or return for new or worsening symptoms. Print Language: Qatari Disposition Disposition: Home, Self Care Discharge Date/Time: 06/23/24 17:39
--- NOTE | 2024-06-23 13:30 | RAD_ITS ---
EXAM: XR CHEST, 2 VIEWS CLINICAL INDICATION: dyspnea TECHNIQUE: Frontal and lateral views of the chest. COMPARISON: 05/27/24 FINDINGS: LUNGS AND PLEURAL SPACES: Unremarkable. No consolidation or edema. No pneumothorax. No effusion. HEART: Unremarkable. Cardiac silhouette not enlarged. MEDIASTINUM: Central airways and mediastinal contour are unremarkable. BONES/JOINTS: Vertebral body cement involving a lower thoracic spine vertebral body. Diffuse osteopenia. No acute fracture. SOFT TISSUES: Unremarkable. RAD/Chest PA and Lateral IMPRESSION: No acute cardiopulmonary disease. Electronically Signed: Jacinto Vega MD at 14:26 EST ,
[2024-06-23 13:50] LABS: Anion Gap 5 (5-15); BUN 14 mg/dL (7-18); BUN/Creat Ratio 16.9 RATIO (10-20); Calcium,Total 10.9 mg/dL (8.5-10.1); Chloride 111 mmol/L (98-107); Creatinine, Serum 0.83 mg/dL (0.55-1.02); EST Glomerular Filtration Rate 71 mL/min (>60); Est Glom Filt Rate - Afr Amer 86 mL/min (>60); Estimated Creatinine Clearance 58.23 ml/min; Glucose 99 mg/dL (74-106); Potassium 4.8 mmol/L (3.5-5.1); Sodium Level 140 mmol/L (136-145); Troponin-I HS 18 pg/mL (3.0-54.0)
[2024-06-23 17:05] LABS: Absolute Neutrophil Count 4.8 X10^3/uL (2.0-7.7); Basophil# 0.11 X10^3/uL; Basophil% 1.3 % (0-1); Eosinophil# 0.55 X10^3/uL; Eosinophils% 6.6 % (0-5); Hematocrit 43.2 % (37-47); Lymphocyte % 26.4 % (19-41); Mean Corp Hgb Conc 32.4 g/dL (32-36); Mean Corpuscular Hgb 31.2 pg (27.0-32.0); Mean Corpuscular Volume 96.2 fL (81-99); Mean Platelet Vol. 12.5 fl (6.2-12.0); Monocyte# 0.63 X10^3/uL; Monocyte% 7.6 % (0-10); NRBC Flagged by Analyzer 0 % (0-5); Neutrophil # 4.82 X10^3/uL (2.7-7.7); Neutrophil % 57.9 % (47-70); POSITIVE COUNT YES; Platelet Count 136 K/mm3 (150-450); RBC Distribution Width CV 13.8 % (11.6-14.6); RBC Distribution Width SD 49.1 fl (35.1-43.9); Red Blood Count 4.49 M/mm3 (4.2-5.4); White Blood Count 8.3 K/mm3 (4.4-11.0)
[2024-06-23 17:10] LABS: Differential Indicated SCAN CRITERIA MET
[2024-06-23 17:14] LABS: D-Dimer Quantitative (DVT/PE) 0.72 FEU/ug/m (0.27-0.49)
[2024-06-23 17:42] LABS: Differential Comment SCANNED
== END 2024-06-23 17:39 | disposition home or self-care (01) ==
PROVIDERS: Physician Assistant; Emergency Provider Emergency Medicine; PCP Family Medicine; Visit Provider Emergency Medicine
DX: R06.02 Shortness of breath (principal); I11.9 Hypertensive heart disease without heart failure; I44.7 Left bundle-branch block, unspecified; E78.5 Hyperlipidemia, unspecified; I25.2 Old myocardial infarction; I25.10 Atherosclerotic heart disease of native coronary artery without angina pectoris; M81.0 Age-related osteoporosis without current pathological fracture; H40.9 Unspecified glaucoma; K21.9 Gastro-esophageal reflux disease without esophagitis; G47.30 Sleep apnea, unspecified; Z85.3 Personal history of malignant neoplasm of breast; Z88.0 Allergy status to penicillin; Z86.73 Personal history of transient ischemic attack (TIA), and cerebral infarction without residual deficits; Z79.82 Long term (current) use of aspirin; Z79.899 Other long term (current) drug therapy; Z90.11 Acquired absence of right breast and nipple
CPT/HCPCS: 36415; 71046; 80048; 84484; 85025; 85379; 93005; 99283; A4216

== ENCOUNTER → 2024-07-19 | Outpatient (CLI) | payer MEDICARE, SELFPAY ==
[2024-07-19 16:10] LABS: Mucous, Urine 0 SEEN /hpf (<or=2+)
[2024-07-19 18:11] LABS: Color, Urine Yellow (Yellow); Glucose, Dipstick Normal (Normal); Ketone-Dipstick Negative (Negative); Leukocyte Esterase-Dipstick 500 /ul (Negative); Nitrite-Dipstick Negative (Negative); Occult Blood-Urine 10 /ul (Negative); Protein-Dipstick 30 mg/dl (Negative); Urine Bilirubin Dipstick Negative (Negative); Urine Clarity Sl. Cloudy (Clear); Urine Urobilinogen Normal (Normal); Urine pH 6.5 (5.0 - 8.0)
[2024-07-19 18:55] LABS: Bacteria 2+ /hpf (None Seen); Red Blood Cells-Urine 0-5 SEEN /hpf (0-5); Squamous Epithelial Cells - UA 0-5 SEEN /hpf (5-10); White Blood Cells 25-50 SEEN /hpf (0-5)
== END | disposition home or self-care (01) ==
LOC: MFPLAB 16:09
PROVIDERS: PCP Family Medicine; Referring Provider Family Medicine; Visit Provider Family Medicine
DX: R42 Dizziness and giddiness (principal)
CPT/HCPCS: 81001; 87086; 87088

== ENCOUNTER 2024-08-15 12:31 | Observation (INO) | payer MEDICARE, SELFPAY ==
[2024-08-15] VITALS (13 sets, daily range): BP systolic 121–155; BP diastolic 52–92; PULSE 67–83; RESP 15–25; TEMP 36.6–36.9; O2SAT 96–100; BMI 33.3; BMI 32.3
--- NOTE | 2024-08-15 12:34 | EKG12_ITS ---
Test Reason : STROKE TEAM Blood Pressure : */* mmHG Vent. Rate : 69 BPM Atrial Rate : 69 BPM P-R Int : 204 ms QRS Dur : 146 ms QT Int : 426 ms P-R-T Axes : 27 -49 104 degrees QTcB Int : 456 ms Sinus rhythm with Premature atrial complexes Left axis deviation Left bundle branch block Abnormal ECG Confirmed by Stephane Kemp ([id number]), proposal editor FILIPE CORTEZ ([id number]) on 08/16/2024 10:51:08 AM Referred By: Confirmed By: Stephane Kemp
--- NOTE | 2024-08-15 12:34 | CT_ITS ---
PROCEDURE: STROKE BRAIN/HEAD WITHOUT CONT REASON FOR EXAM: Neuro deficit. Acute stroke suspected. TECHNIQUE: Multiple axial tomographic images were obtained without intravenous contrast administration. Coronal and sagittal reconstruction were obtained as well. COMPARISON: Comparison is made with prior study dated April 21, 2024. FINDINGS: Cerebral atrophy. Stable attenuation involving the posterior right temporal parietal occipital lobes. This is in keeping with prior infarction. No evidence of cerebral edema. Stable bilateral periventricular hypoattenuation in the deep white matter suggestive of chronic small-vessel disease. CT/STROKE Brain/Head without Cont IMPRESSION: Stable examination. No acute abnormality is seen. The referring physician Dr. Thompson was notified. One or more dose reduction techniques were used (e.g., Automated exposure contr ol, adjustment of the mA and/or kV according to patient size, use of iterative reconstruction technique). Reading Location: [place] [id number]
--- NOTE | 2024-08-15 12:35 | CT_ITS ---
PROCEDURE: STROKE CTA HEAD AND NECK W/CON REASON FOR EXAM: Neuro deficit. Acute stroke suspected. 100 cc of Isovue 370. TECHNIQUE: CTA imaging of the head and neck from the aortic arch to the skull vertex with intravenous contrast. 3D reconstructions. CONTRAST: COMPARISON: Comparison is made with prior CT scan of the head done earlier in the day. FINDINGS: Aortic Arch: Minimal plaque formation of the aortic arch. Atherosclerotic plaque formation at the origin of the right brachiocephalic artery. Brachiocephalic and Subclavians: Unremarkable RIGHT Carotid: Right CCA: Unremarkable. Right ICA: Unremarkable. Right ECA: Unremarkable. LEFT Carotid: Left CCA: Unremarkable. Left ICA: [id number]-[id number] degree of atherosclerotic plaque formation at the origin of the left internal carotid artery. Maximum stenosis (NASCET): 60 % Left ECA: Unremarkable. Vertebrals: Codominant. Arise from the subclavians. Both vertebrals form the basilar. RIGHT Vertebral: Unremarkable. LEFT Vertebral: Unremarkable. No intracranial aneurysms or large vascular malformations are identified. Anterior cerebral arteries: Unremarkable. Middle cerebral arteries: Unremarkable. Basilar artery: Unremarkable. Posterior cerebral arteries: Decreased perfusion overlying the posterior right parietal occipital lobes in keeping with area of encephalomalacia. Other major branches of the posterior circulation: Unremarkable. Major venous structures: Unremarkable. Other findings: No lymphadenopathy. Lung apices are clear. Bones are unremarkable. CT/STROKE CTA Head AND Neck W/Con IMPRESSION: RIGHT CAROTID: Unremarkable LEFT CAROTID: 60% narrowing at the origin of the right internal carotid artery due to plaque formation. VERTEBRALS: Unremarkable INTRACRANIAL: Unremarkable One or more dose reduction techniques were used (e.g., Automated exposure contr ol, adjustment of the mA and/or kV according to patient size, use of iterative reconstruction technique). Reading Location: [place] [address]
--- NOTE | 2024-08-15 12:37 | ED.VIS.STROK ---
HPI History of Present Illness Chief Complaint: Stroke Alert Detail of Chief Complaint: Confusion and concern for stroke Informant: patient and EMS Narrative Narrative: Patient presents to the emergency department with confusion. EMS thought patient had a left facial droop on their arrival. Last known well was about 11 AM. then noted that she was disoriented and talking about her baby and rubbing her abdomen. This is unusual behavior. Patient denies headache. She denies chest pain. History of sleep apnea. [facility] Medical History Post-menopausal Back pain due to injury On home oxygen therapy Scarlet fever Heart attack Left bundle branch block Coronary artery disease Cognitive dysfunction Left hemiparesis Leg pain, bilateral Recurrent major depression resistant to treatment STEMI (ST elevation myocardial infarction) Uncontrolled depression Sleep apnea Stroke/cerebrovascular accident Takotsubo cardiomyopathy Uncontrolled hypertension Eosinophilia, unspecified Dermatitis Osteoporosis Closed TBI (traumatic brain injury) Alien hand syndrome Hemianopia of left eye Acute left hemiparesis Glaucoma Obesity (BMI 30.0-34.9) Osteoarthritis GERD (gastroesophageal reflux disease) Depression HTN (hypertension) Subarachnoid hemorrhage Ischemic cerebrovascular accident (CVA) Ulnar neuropathy at elbow of left upper extremity Tendonitis Hyperlipidemia Cerebrovascular disease Left posterior interosseous nerve syndrome Gastric ulcer Left hand weakness History of breast cancer Major depressive disorder, recurrent episode, moderate Lesion of right radial nerve Home Medications ?Medication ?Instructions ?Recorded ?Last Taken ?Type latanoprost 0.005 % eye drops 1 drp EACH EYE QHS Eye drops 08/10/14 07/28/23 History omeprazole 20 mg capsule,delayed 20 mg PO DAILY GERD 08/30/20 07/29/23 History release alendronate 70 mg tablet 70 mg PO CHONG [facility] 07/06/23 Unknown History aspirin 81 mg tablet,delayed 81 mg PO BREAKFAST heart health #0 07/29/23 07/29/23 Rx release tabs nitroglycerin 0.4 mg sublingual 0.4 mg sublingual Q5M PRN 07/29/23 Unknown Rx tablet Cardiac/Chest Pain #0 tabs ascorbic acid (vitamin C) 500 mg 500 mg PO BID 01/01/24 Unknown History tablet (Vitamin C) losartan 50 mg tablet 50 mg PO .COMPLEX blood pressure 01/01/24 Unknown History Held on 05/30/24. Instructions: Hold for 1 week carvedilol 12.5 mg tablet 12.5 mg PO BIDCM Hypertension 01/04/24 04/26/24 History atorvastatin 40 mg tablet 40 mg PO DAILY cholesterol 04/21/24 Unknown History d-mannose 500 mg capsule 500 mg PO BID 04/21/24 Unknown History Held on 06/23/24. Instructions: Conflicting Appointment cpvasdhc-vccd-bwit 8 mg-folic 400 1 tab PO DAILY 04/21/24 Unknown History mcg-K 50 mcg-lutein 300 mcg tablet ([facility] Women 50 Plus) ergocalciferol (vitamin D2) 1,250 1,250 mcg PO Q7D@1000 #7 caps 04/27/24 Unknown Rx mcg (50,000 unit) capsule (Vitamin D2) meclizine 12.5 mg tablet 12.5 mg PO TID PRN PRN Dizziness 04/27/24 Unknown Rx #10 tabs baclofen 5 mg tablet 5 mg PO TID 05/20/24 Unknown History hydromorphone 2 mg tablet 2 mg PO Q6H PRN pain 05/20/24 Unknown History gabapentin 600 mg tablet 300 - 600 mg PO Q8H PRN PRN pain 05/27/24 Unknown History spironolactone 25 mg tablet 25 mg PO DAILY 06/23/24 Unknown History Held on 06/23/24. Instructions: Conflicting Appointment furosemide 40 mg tablet (Lasix) 40 mg PO DAILY #10 tabs 06/30/24 Unknown Rx magnesium aspart,citrate,oxide mg PO 08/15/24 Unknown History Allergy/AdvReac Type Severity Reaction Status Date / Time bupropion (From Wellbutrin) Allergy Severe Anaphylaxis Verified 08/15/24 12:47 Penicillins (PCN) Allergy Severe Anaphylaxis Verified 08/15/24 12:47 cariprazine (From Vraylar) AdvReac Severe Delirium/severe Verified 08/15/24 12:47 agitation quetiapine (From Seroquel) AdvReac Severe Delirium/severe Verified 08/15/24 12:47 agitation levetiracetam (From Keppra) AdvReac Other Verified 08/15/24 12:47 Family History Aunt Cancer Sister Cancer Surgical History History of right mastectomy History of lumpectomy of right breast Social History household members: spouse housing: other details: One-story house with a basement. Laundry is upstairs number of children: 1 current occupational status: retired Smoking Status: Never smoker Electronic Cigarette Use: not used second hand exposure: No alcohol intake: current alcohol intake frequency: holidays/special occasions only substance use type: does not use ROS ROS ED Review of Systems ROS Unobtainable: other Constitutional Constitutional ED: Reports lethargy; Denies chills, fever(s), sweats or weight loss Eyes Eyes: Denies blurry vision, change in vision or diplopia ENT ENT ED: Denies rhinorrhea or sore throat Cardiovascular Cardiovascular: Denies chest pain, orthopnea or racing heartbeat Respiratory/Chest Respiratory/Chest: Denies cough, dyspnea, dyspnea on exertion, orthopnea or sputum Gastrointestinal Gastrointestinal: Denies abdominal pain, diarrhea, nausea or vomiting Genitourinary Genitourinary ED: Denies dysuria, hematuria or urinary frequency Musculoskeletal Musculoskeletal: Denies arthralgias, back pain, myalgias or neck pain Integumentary Denies abscess, Abrasions or rash Neurologic Neurologic: Reports other Details: Confusion, left facial droop ; Denies headache(s) or weakness Psychiatric Psychiatric: Denies anxiety, depression or suicidal thoughts Endocrine Endocrinology: Denies polydipsia, polyphagia or polyuria Hematologic/Lymphatic Hematologic/Lymphatic: Denies easy bleeding, easy bruising or lymphadenopathy Allergic/Immunologic Allergic/Immunologic ED: Denies mouth swelling, tongue swelling or urticaria EXAM Physical Exam Const Vital Signs: 08/15/24 12:34 08/15/24 12:43 08/15/24 12:46 Temperature 98 F Temperature Source Temporal Pulse Rate 72 72 Respiratory Rate 18 18 Blood Pressure 155/69 H 155/69 H Blood Pressure Mean 97 97 Pulse Ox 96 96 Oxygen Delivery Method Room Air Room Air 08/15/24 13:03 08/15/24 13:04 08/15/24 13:30 Temperature 98.3 F Temperature Source Oral Pulse Rate 83 69 Respiratory Rate 25 H 19 H Blood Pressure 122/92 H 155/89 H Blood Pressure Mean 102 111 Pulse Ox 97 98 99 Oxygen Delivery Method Room Air 08/15/24 14:21 Temperature Temperature Source Pulse Rate 69 Respiratory Rate 18 Blood Pressure 136/57 H Blood Pressure Mean 83 Pulse Ox 100 Oxygen Delivery Method Room Air MDM MDM MDM Narrative Medical decision making narrative: Patient presented to the emergency department with concern for possible stroke and mental status change. Once her arrived he was able to give more history and that she woke up around 10 AM to use the restroom and she seemed her normal self. She then went back to bed and he try to wake her up around 11:00 and she was confused and disoriented and that is when he called EMS. Does have history of prior stroke. Recent carotid endarterectomy. In the differential would be stroke versus metabolic encephalopathy. Stroke team was called prior to patient arriving the emergency department. CT scan of the brain without contrast showed old CVA with chronic right posterior parietal white matter changes and right occipital lobe. CTA of the head and neck obtained showed 50% narrowing at the left ICA. CBC with differential, 7.3 with hemoglobin 13 and platelet count of 309. Chemistries unremarkable. Troponin was normal at 11. EKG showed a sinus rhythm with rate of 69 bpm with left bundle branch block. Urinalysis obtained positive for UTI. Send off a culture and started patient on Cipro 400 mg IV as she has allergy to amoxicillin. Patient initially on presentation had a NIH stroke scale for myself of 5 however it was noted in her chart that she had had prior strokes and some left-sided deficits. She had some subtle weakness in the left arm and decree sensation to the left side compared to the right side. She had a subtle left facial droop. Stroke neurologist from [facility] did evaluate the patient and she felt patient was not a candidate for thrombolysis given recent history of stroke and mild deficits. Throughout her stay her symptoms essentially resolved. Discussed case with hospitalist will evaluate patient for admission for mental status change, TIA, and UTI. Lab Data Attestation: I reviewed the patient's lab results. Labs: Laboratory Results - last 24 hr 08/15/24 08/15/24 12:10 13:23 WBC 7.3 RBC 4.09 L Hgb 13.1 Hct 40.1 MCV 98.0 MCH 32.0 MCHC 32.7 RDW Std Deviation 49.4 H RDW Coeff of Kenisha 13.5 Plt Count 309 MPV 11.2 Immature Gran % (Auto) 0.100 Neut % (Auto) 57.9 Lymph % (Auto) 25.1 [place] % (Auto) 7.1 Eos % (Auto) 8.3 H Baso % (Auto) 1.5 H Absolute Neuts (auto) 4.2 Absolute Lymphs (auto) 1.84 Nucleated RBC % 0 PT 12.9 INR 1.0 APTT 28.5 Sodium 141 Potassium 5.1 Chloride 107 Carbon Dioxide 23.3 Anion Gap 11 BUN 18 Creatinine 0.74 Estim Creat Clear Calc 60.49 Est GFR (MDRD) Non-Af 84 BUN/Creatinine Ratio 24.0 H Glucose 90 Calcium 10.7 Troponin T High Sens 11 Urine Color Yellow Urine Clarity Clear Urine pH 8.0 Ur Specific [place] 1.010 Urine Protein 15 H Urine Glucose (UA) Normal Urine Ketones Negative Urine Occult Blood 10 H Urine Nitrite Negative Urine Bilirubin Negative Urine Urobilinogen Normal Ur Leukocyte Esterase 500 H Urine RBC 0-5 SEEN Urine WBC 10-25 SEEN Ur Squamous Epith Cells 0 SEEN Urine Bacteria 2+ Urine Mucus 0 SEEN Radiography Diagnostic Testing: Clinical Impression(s) from Imaging Studies Chest X-Ray 08/15/24 13:35 IMPRESSION: No acute abnormality is seen. Reading Location: [place] [id number] 1 view chest x-ray obtained interpreted by myself as no evidence of infiltrate or pneumothorax or acute disease process. Radiology felt there was borderline cardiomegaly EKG Initial EKG: Attestation: I personally reviewed and interpreted this EKG as follows: Comments: Sinus rhythm with rate of 69 bpm with left bundle branch block Discharge Plan Dx/Rx/DC Orders Clinical Impression: Altered mental status, Left bundle branch block, Brain TIA, Acute UTI Disposition Disposition: Acute Care [facility]
[2024-08-15 12:57] LABS: Absolute Lymphocyte Count 1.84 X10^3/uL (0.83-4.51); Absolute Neutrophil Count 4.2 X10^3/uL (2.0-7.7); Basophil# 0.11 X10^3/uL; Basophil% 1.5 % (0-1); Eosinophil# 0.61 X10^3/uL; Eosinophils% 8.3 % (0-5); Hematocrit 40.1 % (37-47); Hemoglobin 13.1 g/dL (12.0-15.0); Lymphocyte # 1.84 X10^3/ul (0.83-4.51); Lymphocyte % 25.1 % (19-41); Mean Corp Hgb Conc 32.7 g/dL (32-36); Mean Platelet Vol. 11.2 fl (6.2-12.0); Monocyte# 0.52 X10^3/uL; Monocyte% 7.1 % (0-10); NRBC Flagged by Analyzer 0 % (0-5); Neutrophil # 4.23 X10^3/uL (2.7-7.7); Neutrophil % 57.9 % (47-70); Platelet Count 309 K/mm3 (150-450); RBC Distribution Width CV 13.5 % (11.6-14.6); RBC Distribution Width SD 49.4 fl (35.1-43.9); Red Blood Count 4.09 M/mm3 (4.2-5.4); White Blood Count 7.3 K/mm3 (4.4-11.0)
[2024-08-15 13:04] LABS: Prothrombin Time (Protime)PT. 12.9 SECONDS (11.7-14.9)
--- NOTE | 2024-08-15 13:08 | ED.RN ---
Rn called [facility] stat line to inform them patient was back in the room. Rn and patient waiting for them to appear on teledoc about 5 minutes. delay due to change in neurologist. per Sherry on [facility] stat line they should be on soon
[2024-08-15 13:11] LABS: Partial Thromboplast Time 28.5 Seconds (24.1-36.2)
--- NOTE | 2024-08-15 13:17 | ED.RN ---
Per Dr. Ramirez, we can change NIH to Q30min
--- NOTE | 2024-08-15 13:17 | ED.RN ---
PER [facility] patient is not a candidate for TNK, recommendation for local admission for stroke workup unless CTA abnormal.
[2024-08-15 13:27] LABS: Mucous, Urine 0 SEEN /hpf (<or=2+); Squamous Epithelial Cells - UA 0 SEEN /hpf (5-10)
[2024-08-15 13:32] LABS: Color, Urine Yellow (Yellow); Glucose, Dipstick Normal (Normal); Ketone-Dipstick Negative (Negative); Leukocyte Esterase-Dipstick 500 /ul (Negative); Nitrite-Dipstick Negative (Negative); Occult Blood-Urine 10 /ul (Negative); Protein-Dipstick 15 mg/dl (Negative); Urine Bilirubin Dipstick Negative (Negative); Urine Clarity Clear (Clear); Urine Urobilinogen Normal (Normal)
[2024-08-15 13:33] LABS: Troponin T High Sensitivity 11 ng/L (<=14)
--- NOTE | 2024-08-15 13:35 | RAD_ITS ---
PROCEDURE: CHEST 1 VIEW REASON FOR EXAM: Acute stroke suspected. TECHNIQUE: Frontal view of the chest. COMPARISON: Comparison is made with prior study dated June 23, 2024. FINDINGS: EKG electrodes are seen. Heart size is upper limits of normal. Tortuosity of the descending thoracic aorta. The lungs are clear. Degenerative changes of the dorsal spine with prior vertebroplasty of a lower dorsal vertebrae. RAD/Chest 1 View IMPRESSION: No acute abnormality is seen. Reading Location: [facility]
[2024-08-15 13:46] LABS: Bacteria 2+ /hpf (None Seen); Red Blood Cells-Urine 0-5 SEEN /hpf (0-5); White Blood Cells 10-25 SEEN /hpf (0-5)
[2024-08-15 13:55] LABS: Anion Gap 11 (5-15); BUN 18 mg/dL (4-19); Calcium,Total 10.7 mg/dL (7.6-11.0); Carbon Dioxide 23.3 mmol/L (21.0-32.0); Chloride 107 mmol/L (98-108); Creatinine, Serum 0.74 mg/dL (0.70-1.20); EST Glomerular Filtration Rate 84 (>60); Estimated Creatinine Clearance 60.49 ml/min (50-250); Glucose 90 mg/dL (70-99); Potassium 5.1 mmol/L (3.3-5.1); Sodium Level 141 mmol/L (133-145)
--- NOTE | 2024-08-15 13:58 | PCM.HP.STD ---
HPI - General General Date of Admission: 08/15/24 Date of Service: 08/15/24 Chief Complaint: Left-sided weakness/dysuria HPI Narrative GILBERTO CAMPBELL, is a 73 F who presented to the emergency department [facility] on 08/15/2024 with a chief complaint of left-sided weakness and some confusion. The patient was last known well at 11 AM and at that time the noted that she was somewhat disoriented and talking about her baby and rubbing her abdomen. He indicated that this was unusual behavior for her and she was noted to have some left-sided weakness upon EMS arrival that included left facial droop. She has a history of stroke with resultant left-sided weakness. Symptoms at that time involve altered mental status and the patient does not remember the event however she does state that she does have persistent left-sided weakness related to that. She had a carotid endarterectomy in March on the right side related to that stroke. She has been doing well since that point in time. She also complains of some mild dysuria and significant urinary frequency. Vital signs on presentation showed temperature 98, heart rate 72, respiratory 18, blood pressure was 155/69 and pulse ox was 97% on room air. Her CBC was unremarkable. Coags were normal. Chemistry panel was unremarkable. Troponin was 16 and 16. Her UA was suggestive of infection having leuk esterase, white cells, and 2+ bacteria. No nitrates were noted. Stroke team was called on arrival and CT of the brain was unremarkable for any acute findings. CTA of the head and neck showed left carotid artery stenosis at 60% estimation at the origin of the RCA but was otherwise unremarkable. Chest x-ray showed no acute abnormality. Initial NIH was 5 but repeat was 1. thought patient was close to back to baseline with regards to her mental status at the time of admission. Neurology was counseled emergency department and recommended stroke workup and given UA being suggestive infection she was given ceftriaxone 1 g x 1 dose in emergency department. [facility] Medical History Post-menopausal Back pain due to injury On home oxygen therapy Scarlet fever Heart attack Left bundle branch block Coronary artery disease Cognitive dysfunction Left hemiparesis Leg pain, bilateral Recurrent major depression resistant to treatment STEMI (ST elevation myocardial infarction) Uncontrolled depression Sleep apnea Stroke/cerebrovascular accident Takotsubo cardiomyopathy Uncontrolled hypertension Eosinophilia, unspecified Dermatitis Osteoporosis Closed TBI (traumatic brain injury) Alien hand syndrome Hemianopia of left eye Acute left hemiparesis Glaucoma Obesity (BMI 30.0-34.9) Osteoarthritis GERD (gastroesophageal reflux disease) Depression HTN (hypertension) Subarachnoid hemorrhage Ischemic cerebrovascular accident (CVA) Ulnar neuropathy at elbow of left upper extremity Tendonitis Hyperlipidemia Cerebrovascular disease Left posterior interosseous nerve syndrome Gastric ulcer Left hand weakness History of breast cancer Major depressive disorder, recurrent episode, moderate Lesion of right radial nerve Home Medications ?Medication ?Instructions ?Recorded ?Last Taken ?Type latanoprost 0.005 % eye drops 1 drp EACH EYE QHS Eye drops 08/10/14 07/28/23 History omeprazole 20 mg capsule,delayed 20 mg PO DAILY GERD 08/30/20 07/29/23 History release alendronate 70 mg tablet 70 mg PO CHONG [facility] health 07/06/23 Unknown History aspirin 81 mg tablet,delayed 81 mg PO BREAKFAST heart health #0 07/29/23 07/29/23 Rx release tabs nitroglycerin 0.4 mg sublingual 0.4 mg sublingual Q5M PRN 07/29/23 Unknown Rx tablet Cardiac/Chest Pain #0 tabs ascorbic acid (vitamin C) 500 mg 500 mg PO BID 01/01/24 Unknown History tablet (Vitamin C) losartan 50 mg tablet 50 mg PO .COMPLEX blood pressure 01/01/24 Unknown History Held on 05/30/24. Instructions: Hold for 1 week carvedilol 12.5 mg tablet 12.5 mg PO BIDCM Hypertension 01/04/24 04/26/24 History atorvastatin 40 mg tablet 40 mg PO DAILY cholesterol 04/21/24 Unknown History d-mannose 500 mg capsule 500 mg PO BID 04/21/24 Unknown History Held on 06/23/24. Instructions: Conflicting Appointment hacptpab-[id number]-[id number] 8 mg-folic 400 1 tab PO DAILY 04/21/24 Unknown History mcg-K 50 mcg-lutein 300 mcg tablet (Century Women 50 Plus) ergocalciferol (vitamin D2) 1,250 1,250 mcg PO Q7D@1000 #7 caps 04/27/24 Unknown Rx mcg (50,000 unit) capsule (Vitamin D2) meclizine 12.5 mg tablet 12.5 mg PO TID PRN PRN Dizziness 04/27/24 Unknown Rx #10 tabs baclofen 5 mg tablet 5 mg PO TID 05/20/24 Unknown History hydromorphone 2 mg tablet 2 mg PO Q6H PRN pain 05/20/24 Unknown History gabapentin 600 mg tablet 300 - 600 mg PO Q8H PRN PRN pain 05/27/24 Unknown History spironolactone 25 mg tablet 25 mg PO DAILY 06/23/24 Unknown History Held on 06/23/24. Instructions: Conflicting Appointment furosemide 40 mg tablet (Lasix) 40 mg PO DAILY #10 tabs 06/30/24 Unknown Rx magnesium aspart,citrate,oxide mg PO 08/15/24 Unknown History Allergy/AdvReac Type Severity Reaction Status Date / Time bupropion (From Wellbutrin) Allergy Severe Anaphylaxis Verified 08/15/24 12:47 Penicillins (PCN) Allergy Severe Anaphylaxis Verified 08/15/24 12:47 cariprazine (From Vraylar) AdvReac Severe Delirium/severe Verified 08/15/24 12:47 agitation quetiapine (From Seroquel) AdvReac Severe Delirium/severe Verified 08/15/24 12:47 agitation levetiracetam (From Keppra) AdvReac Other Verified 08/15/24 12:47 Family History Aunt Cancer Sister Cancer Surgical History History of right mastectomy History of lumpectomy of right breast Social History household members: spouse housing: other details: One-story house with a basement. Laundry is upstairs number of children: 1 current occupational status: retired Smoking Status: Never smoker Electronic Cigarette Use: not used second hand exposure: No alcohol intake: current alcohol intake frequency: holidays/special occasions only substance use type: does not use ROS Constitutional Constitutional: Denies anorexia, change in weight, chills, fatigue, fever(s), malaise, night sweats, weakness or other Eyes Eyes: Denies blurry vision, change in eye color, change in vision, discharge from eye(s), double vision, erythema, eye pain, loss of vision or other ENT HEENT: Denies abnormal hearing, dysphagia, ear pain, epistaxis, headache(s), hearing loss, nasal congestion, nasal discharge, post nasal drip, sinus pressure, sore throat or other Cardiovascular Cardiovascular: Denies chest pain, claudication, dyspnea on exertion, edema, lightheadedness, orthopnea, palpitations, paroxysmal nocturnal dyspnea, rapid heart rate, syncope or other Respiratory/Chest Respiratory/Chest: Denies cough, dyspnea, excessive phlegm production, hemoptysis, productive cough, shortness of breath at rest, shortness of breath with exertion, wheezing or other Gastrointestinal Gastrointestinal: Denies abdominal pain, coffee ground emesis, constipation, diarrhea, dyspepsia, hematemesis, hematochezia, loose stools, melena, nausea, vomiting or other Genitourinary Genitourinary: Reports burning urination, dysuria, urinary frequency and urinary urgency; Denies difficulty urinating, hematuria, nocturia, urinary hesitancy, urinary incontinence or other Musculoskeletal Musculoskeletal: Reports back pain; Denies arthralgias, joint pain, joint stiffness, joint swelling, myalgias, neck pain or other Neurologic Neurologic: Reports confusion and focal weakness; Denies abnormal gait, abnormal speech, disequilibrium, dizziness, headache(s), numbness, paresthesias, seizure-like activity, seizures, syncope, tingling, tremor(s) or other Psychiatric Psychiatric: Denies anxiety, depression, homicidal ideation, suicidal ideation or other Endocrine Endocrinology: Denies change in body appearance, cold intolerance, excessive sweating, heat intolerance, polydipsia, polyuria or other Hematologic/Lymphatic Hematologic/Lymphatic: Denies anemia, easy bleeding, easy bruising, lymphadenopathy or other Allergic/Immunologic Allergic/Immunologic: Denies rhinitis, hives, eczemia, asthma or other Vital Signs Vital Signs Vital Signs: 08/15/24 12:34 08/15/24 12:43 08/15/24 12:46 Temperature 98 F Temperature Source Temporal Pulse Rate 72 72 Respiratory Rate 18 18 Blood Pressure 155/69 H 155/69 H Blood Pressure Mean 97 97 Pulse Ox 96 96 Oxygen Delivery Method Room Air Room Air 08/15/24 13:03 08/15/24 13:04 08/15/24 13:30 Temperature 98.3 F Temperature Source Oral Pulse Rate 83 69 Respiratory Rate 25 H 19 H Blood Pressure 122/92 H 155/89 H Blood Pressure Mean 102 111 Pulse Ox 97 98 99 Oxygen Delivery Method Room Air Weight Weight: 82.5 kg Body Mass Index (BMI) 33.3 Physical Exam Const alert, oriented x3, no apparent distress and well nourished; Negative for average body habitus or healthy appearing Constitutional Narrative: Older, obese, white female, sitting to the bed, at bedside, patient appears comfortable, nontoxic General Appearance: cooperative HEENT normocephalic, head/scalp atraumatic, hearing grossly normal bilaterally and moist oral mucous membranes HEENT Narrative: Mallampati 2, no thrush Eyes EOMs intact bilaterally and conjunctivae normal Eyes Narrative: No scleral icterus Neck supple and no carotid bruits Neck Narrative: Trachea midline, no thyroid enlargement Resp normal respiratory effort, no retractions, no use of accessory muscles and clear to auscultation bilaterally Auscultation: Negative for rales, rhonchi or wheezes Cardio regular rate, regular rhythm, S1 normal heart sound, S2 normal heart sound, no murmurs, no rub, no gallops and no clicks GI normal to inspection, nondistended, normoactive bowel sounds, soft to palpation and non-tender Extremity no clubbing, cyanosis or edema Extremity Narrative: Pedal pulses are 2+, radial pulses are 2+ Skin skin turgor normal, no jaundice, no petechiae and no mottling Neuro oriented x3, CN's II-XII intact bilaterally, moves all extremities and No no focal motor deficits Neuro Narrative: Slight left pronator drift, mild left lower extremity weakness present, cranial nerves were intact Speech: speech normal Psych affect normal Psych Narrative: Extremely pleasant, interacts appropriately, eye contact is good Results Lab / Micro Data 08/15/24 12:10 08/15/24 12:10 Labs: Laboratory Results - last 24 hr 08/15/24 12:10: WBC 7.3, RBC 4.09 L, Hgb 13.1, Hct 40.1, MCV 98.0, MCH 32.0, MCHC 32.7, RDW Std Deviation 49.4 H, RDW Coeff of Kenisha 13.5, Plt Count 309, MPV 11.2, Immature Gran % (Auto) 0.100, Neut % (Auto) 57.9, Lymph % (Auto) 25.1, [place] % (Auto) 7.1, Eos % (Auto) 8.3 H, Baso % (Auto) 1.5 H, Absolute Neuts (auto) 4.2, Absolute Lymphs (auto) 1.84, Nucleated RBC % 0, PT 12.9, INR 1.0, APTT 28.5, Sodium 141, Potassium 5.1, Chloride 107, Carbon Dioxide 23.3, Anion Gap 11, BUN 18, Creatinine 0.74, Estim Creat Clear Calc 60.49, Est GFR (MDRD) Non-Af 84, BUN/Creatinine Ratio 24.0 H, Glucose 90, Calcium 10.7, Troponin T High Sens 11 08/15/24 13:23: Urine Color Yellow, Urine Clarity Clear, Urine pH 8.0, Ur Specific [place] 1.010, Urine Protein 15 H, Urine Glucose (UA) Normal, Urine Ketones Negative, Urine Occult Blood 10 H, Urine Nitrite Negative, Urine Bilirubin Negative, Urine Urobilinogen Normal, Ur Leukocyte Esterase 500 H, Urine RBC 0-5 SEEN, Urine WBC 10-25 SEEN, Ur Squamous Epith Cells 0 SEEN, Urine Bacteria 2+, Urine Mucus 0 SEEN Assessment & Plan Assessment/Plan (1) Abnormal urinalysis: (2) Altered mental status: (3) Left hemiparesis: PLAN: Plan Left-sided weakness/left-sided facial droop -CT brain unremarkable -CTA of the head and neck showed 60% stenosis in the left carotid artery -Check lipids -Check hemoglobin A1c -Continue home statin -Continue home aspirin -NIH initially 5 with repeat at 1 -Suspect this may be related to a UTI but unclear -Check MRI -Check echocardiogram -NIH as per protocol -Neurology consultation Abnormal UA -Highly suggestive of UTI -Continue ceftriaxone initiated emergency department -Urine cultures pending Carotid artery stenosis -Previous right carotid endarterectomy next-left carotid artery stenosis 660% -Continue risk factor modification -Ongoing outpatient follow-up with vascular surgery History of stroke -Continue home aspirin -continue ongoing risk factor modification Hyperlipidemia/essential hypertension/history of Takotsubo cardiomyopathy -Continue home atorvastatin -Continue home carvedilol -Continue home Lasix -Patient previously had been on losartan currently on hold Glaucoma -Continue home eyedrops GERD/history of PUD -Continue PPI SHAREE -Will continue CPAP if patient compliant Chronic pain/osteoarthritis -Continue home Dilaudid -Continue gabapentin -Continue baclofen Osteoporosis -Continue home alendronate -Continue vitamin D supplementation at discharge Obesity -BMI is 32.3 -recommend weight loss -Complicates treatment, prognosis, outcomes DVT prophylaxis -Subcu enoxaparin CODE STATUS -DNR CCA okay for short-term intubation per discussion on admission with at bedside Charges/Coding Visit Charges Inpatient E&M: 66999 Init Hosp L2
--- NOTE | 2024-08-15 14:30 | ED.RN ---
Unable to hang ABX due to Cipro not being stocked in [facility]ud[facility]. Pharmacy made aware
--- NOTE | 2024-08-15 14:40 | ED.RN ---
NIH charting delayed due to computer malfunction
--- NOTE | 2024-08-15 14:56 | MRI_ITS ---
PROCEDURE: TECHNIQUE: Multiplanar, multi-sequence MRI of brain was performed without and with IV contrast. FINDINGS: BRAIN/PARENCHYMA: No evidence of acute infarction or acute intracranial hemorrhage. Nodular of encephalomalacia and gliosis in the right frontotemporal and parietal lobe, from previous right MCA distribution infarct. There is also cortical laminar necrosis in this region. 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 There are subcortical and periventricular white matter FLAIR hyperintensities, likely related to chronic microvascular ischemic disease. No abnormal post-contrast enhancement. There is mild generalized volume loss. EXTRA-AXIAL SPACES: No abnormal extra-axial fluid collections. Patent basal cisterns and foramen magnum. MIDLINE SHIFT: None. VENTRICLES: No hydrocephalus. SCALP SOFT TISSUES & CALVARIUM: No significant abnormality. VISUALIZED SINUSES & MASTOIDS: Moderate right and small left mastoid effusions. Mild paranasal sinus mucosal thickening.. ARTERIAL FLOW VOIDS: Preserved major arterial flow voids indicating gross patency. MRI/Brain without Contrast IMPRESSION: 1. No evidence of an acute infarct, intracranial hemorrhage or extra-axial col lection. 2.Sequela of prior large right MCA distribution infarct as described above. 3.Moderate chronic microvascular ischemic disease and involutional changes. Reading Location: [facility]
[2024-08-15] MEDS: Ciprofloxacin 400 MG/200 ML BAG 200 MG IV (15:27)
[2024-08-15 17:32] LABS: Troponin T High Sens 2 HR 16 ng/L (<=14); Troponin T High Sens 4 HR 16 ng/L (<=14)
[2024-08-15 18:01] LABS: Hemoglobin A1c 5.4 % (<=5.6)
--- NOTE | 2024-08-15 18:26 | ECHOCS_ITS ---
Reason For Study Reason For Study: CVA Procedure This was a 2D Doppler, Color Flow transthoracic echocardiogram. The study was technically difficult. Contrast injection was performed. Exam performed portable in patient room. Left Ventricle Mildly dilated left ventricle. The estimated ejection fraction is 30 %. There is evidence of diastolic dysfunction. There is severe global hypokinesis of the left ventricle. Right Ventricle Normal RV size. Normal systolic function. Atria The left and right atria are normal. No doppler evidence for ASD. Mitral Valve There is no mitral valve stenosis. Mild (1+) mitral valve insufficiency. Tricuspid Valve There is no tricuspid stenosis. Unable to estimate RV systolic pressure due to inadequate jet, pulmonary artery pressure probably normal. Aortic Valve Trisinus/trileaflet aortic valve. There is no aortic stenosis. No aortic valve insufficiency. Pulmonic Valve There is no pulmonic valvular stenosis. No pulmonic valve insufficiency. Great Vessels Normal sized aortic root. Pericardium/Pleural No pericardial effusion. Medication Diluted definity 2ml given slow IV push to enhance endocardial definition. MMode/2D Measurements & Calculations LVIDd: 5.4 cm IVSd: 1.2 cm Ao root diam: 3.6 cm LVIDs: 4.4 cm LVPWd: 1.0 cm RVDd: 3.4 cm FS: 18.5 % LAV(MOD-bp): 31.9 ml LVAd ap4: 37.8 cm2 SV(MOD-sp4): 24.9 ml LAV(MOD-bp) Indexed: 16.7 ml/m2 LVLd ap4: 8.1 cm SI(MOD-sp4): 13.1 ml/m2 LAV(MOD-sp2): 32.7 ml EDV(MOD-sp4): 142.0 ml LAV(MOD-sp4): 26.2 ml EDV(sp4-el): 150.3 ml LVAs ap4: 33.1 cm2 LVLs ap4: 7.5 cm ESV(MOD-sp4): 117.0 ml ESV(sp4-el): 123.1 ml EF(MOD-sp4): 17.6 % EF(sp4-el): 18.1 % SV(sp4-el): 27.2 ml LA A4 area: 12.7 cm2 LA dimension(2D): 3.9 cm TAPSE: 2.3 cm Time Measurements MV dec time: 0.17 sec Doppler Measurements & Calculations MV E max meño: 51.7 cm/sec Lat Peak E' Meño: 10.1 cm/sec Med Peak E' Meño: 5.8 cm/sec MV A max meño: 109.0 cm/sec E/E' lat: 5.1 E/E' med: 8.9 MV E/A: 0.47 MV V2 max: 128.1 cm/sec MV P1/2t max meño: 74.7 cm/sec Ao V2 max: 117.0 cm/sec MV max P.6 mmHg MV P1/2t: 69.1 msec Ao max P.5 mmHg MV V2 mean: 66.6 cm/sec Ao V2 mean: 82.0 cm/sec MV mean P.2 mmHg MV dec slope: 317.0 cm/sec2 Ao mean P.1 mmHg MV V2 VTI: 19.7 cm MVA(P1/2t): 3.2 cm2 Ao V2 VTI: 24.5 cm AV (velocity ratio): 0.77 LV V1 max: 101.3 cm/sec LV V1 max P.1 mmHg LV V1 mean P.3 mmHg LV V1 mean: 71.6 cm/sec LV V1 VTI: 18.9 cm ECHO/Echo Complete W/ Contrast Interpretation Summary Mildly dilated left ventricle. The estimated ejection fraction is 30 %. There is severe global hypokinesis of the left ventricle. Mild (1+) mitral valve insufficiency. Ordering Physician: Gloria Laguna Performed By: Adam Stafford RCS
[2024-08-15] MEDS: 0.9% Saline Lock 10 ML Syringe IV (21:14)
[2024-08-15] MEDS: Ciprofloxacin 200 MG/100 ML BAG 100 MG IV (21:15)
[2024-08-15] MEDS: Latanoprost 0.005% 1 Bottle 1 DRP EACH EYE (21:17)
[2024-08-15] MEDS: Ascorbic Acid 500 MG Tablet PO (21:20)
[2024-08-15] MEDS: Atorvastatin Calcium 40 MG Tablet PO (21:20)
[2024-08-15] MEDS: Baclofen 10 MG Tablet 5 MG PO (21:20)
[2024-08-15] MEDS: Acetaminophen 325 MG Tablet 650 MG PO (21:23)
[2024-08-16 03:42] VITALS: BP 118/53; PULSE 64; RESP 18; TEMP 36.2; O2SAT 96
[2024-08-16] MEDS: Baclofen 10 MG Tablet 5 MG PO ×2 (05:29→14:19)
[2024-08-16] MEDS: Sodium Chloride 0.65% 1 SPRAY SPRAY.BTL 2 SPRAY NASAL (06:05)
[2024-08-16] MEDS: MENTHOL 226.8 GM JAR 1 APPLIC TOPICAL (06:05)
[2024-08-16 08:42] VITALS: O2SAT 95
[2024-08-16 09:40] VITALS: BP 122/64; PULSE 83; RESP 18; TEMP 36.8; O2SAT 98
[2024-08-16 10:50] VITALS: BMI 32.3
[2024-08-16] MEDS: Ascorbic Acid 500 MG Tablet PO (10:51)
[2024-08-16] MEDS: Carvedilol 12.5 MG Tablet PO (10:51)
[2024-08-16] MEDS: Pantoprazole Sodium 20 MG Tablet PO (10:51)
[2024-08-16] MEDS: Aspirin E.C. 81 MG Tablet PO (10:51)
[2024-08-16] MEDS: Gabapentin 600 MG Tablet 300 MG PO (10:51)
[2024-08-16] MEDS: Multivitamins,Ther W-Minerals Tablet 1 TABLET PO (10:51)
[2024-08-16] MEDS: Ciprofloxacin 200 MG/100 ML BAG 100 MG IV (10:52)
[2024-08-16] MEDS: Enoxaparin 40 MG/0.4 ML Syringe SC (10:52)
--- NOTE | 2024-08-16 12:14 | STROKE.CONS ---
Assessment and Plan: Stroke Assessment/Plan GILBERTO CAMPBELL is a 73 F with a history of HTN, HLD, breast cancer recent R MCA stroke with R M2 occlusion s/p IV TNK. Noticed to have confusion and drowsiness. Also had left facial droop. Improving symptoms and back to baseline. Telestroke was called and NIHSS was 4. She was not a TNK candidate given recent stroke and low NIHSS. She was also diagnosed with UTI and started on antibiotics Neurological examination shows Mild left hemiparesis and sensory loss (at baseline from her recent stroke). Neuroimaging shows CTA: L ICA 60% stenosis, MRI No acute stroke. Likely had stroke recrudescence and encephalopathy from her UTI Plan Continue ASA HLD: Continue statin HTN:Aim normotension UTI: management per primary team PT,OT evaluation Thanks for consult. Spent 40 min in evaluation and management of this patient. HPI Consult Data Date of Consult: 08/16/24 HPI Narrative HPI Narrative: GILBERTO CAMPBELL, is a 73 F with HTN, HLD, breast cancer recent R MCA stroke with R M2 occlusion s/p IV TNK. Noticed to have confusion and could not be aroused by . She was recalling her lost baby from several years ago. EMS noticed left facial droop. Telestroke was called and NIHSS was 4. She was not a TNK candidate given recent stroke and low NIHSS. She was also diagnosed with UTI and started on antibiotics. She is improving and back to baseline. Has some residual weakness on the left side from her recent stroke. From her recent stroke she has R M2 inferior division infarct. CT of the brain was unremarkable for any acute findings. CTA of the head and neck showed left carotid artery stenosis at 60% estimation at the origin of the RCA but was otherwise unremarkable. [facility] Medical History Post-menopausal Back pain due to injury On home oxygen therapy Scarlet fever Heart attack Left bundle branch block Coronary artery disease Cognitive dysfunction Left hemiparesis Leg pain, bilateral Recurrent major depression resistant to treatment STEMI (ST elevation myocardial infarction) Uncontrolled depression Sleep apnea Stroke/cerebrovascular accident Takotsubo cardiomyopathy Uncontrolled hypertension Eosinophilia, unspecified Dermatitis Osteoporosis Closed TBI (traumatic brain injury) Alien hand syndrome Hemianopia of left eye Acute left hemiparesis Glaucoma Obesity (BMI 30.0-34.9) Osteoarthritis GERD (gastroesophageal reflux disease) Depression HTN (hypertension) Subarachnoid hemorrhage Ischemic cerebrovascular accident (CVA) Ulnar neuropathy at elbow of left upper extremity Tendonitis Hyperlipidemia Cerebrovascular disease Left posterior interosseous nerve syndrome Gastric ulcer Left hand weakness History of breast cancer Major depressive disorder, recurrent episode, moderate Lesion of right radial nerve Home Medications ?Medication ?Instructions ?Recorded ?Last Taken ?Type latanoprost 0.005 % eye drops 1 drp EACH EYE QHS Eye drops 08/10/14 07/28/23 History omeprazole 20 mg capsule,delayed 20 mg PO DAILY GERD 08/30/20 07/29/23 History release alendronate 70 mg tablet 70 mg PO CHONG [facility] 07/06/23 Unknown History aspirin 81 mg tablet,delayed 81 mg PO BREAKFAST heart health #0 07/29/23 07/29/23 Rx release tabs nitroglycerin 0.4 mg sublingual 0.4 mg sublingual Q5M PRN 07/29/23 Unknown Rx tablet Cardiac/Chest Pain #0 tabs ascorbic acid (vitamin C) 500 mg 500 mg PO BID 01/01/24 Unknown History tablet (Vitamin C) losartan 50 mg tablet 50 mg PO .COMPLEX blood pressure 01/01/24 Unknown History Held on 05/30/24. Instructions: Hold for 1 week carvedilol 12.5 mg tablet 12.5 mg PO BIDCM Hypertension 01/04/24 04/26/24 History atorvastatin 40 mg tablet 40 mg PO DAILY cholesterol 04/21/24 Unknown History d-mannose 500 mg capsule 500 mg PO BID 04/21/24 Unknown History Held on 06/23/24. Instructions: Conflicting Appointment [id number] 8 mg-folic 400 1 tab PO DAILY 04/21/24 Unknown History mcg-K 50 mcg-lutein 300 mcg tablet ([facility] Women 50 Plus) meclizine 12.5 mg tablet 12.5 mg PO TID PRN PRN Dizziness 04/27/24 Unknown Rx #10 tabs baclofen 5 mg tablet 5 mg PO TID 05/20/24 Unknown History hydromorphone 2 mg tablet 2 mg PO Q6H PRN pain 05/20/24 Unknown History gabapentin 600 mg tablet 300 - 600 mg PO Q8H PRN PRN pain 05/27/24 Unknown History spironolactone 25 mg tablet 25 mg PO DAILY 06/23/24 Unknown History Held on 06/23/24. Instructions: Conflicting Appointment magnesium aspart,citrate,oxide mg PO 08/15/24 Unknown History Allergy/AdvReac Type Severity Reaction Status Date / Time bupropion (From Wellbutrin) Allergy Severe Anaphylaxis Verified 08/15/24 12:47 Penicillins (PCN) Allergy Severe Anaphylaxis Verified 08/15/24 12:47 cariprazine (From Vraylar) AdvReac Severe Delirium/severe Verified 08/15/24 12:47 agitation quetiapine (From Seroquel) AdvReac Severe Delirium/severe Verified 08/15/24 12:47 agitation levetiracetam (From Keppra) AdvReac Other Verified 08/15/24 12:47 Family History Aunt Cancer Sister Cancer Surgical History History of right mastectomy History of lumpectomy of right breast Social History household members: spouse housing: other details: One-story house with a basement. Laundry is upstairs number of children: 1 current occupational status: retired Smoking Status: Never smoker Electronic Cigarette Use: not used second hand exposure: No alcohol intake: current alcohol intake frequency: holidays/special occasions only substance use type: does not use Vital Signs Vital Signs Vital Signs: 08/15/24 12:34 08/15/24 12:43 08/15/24 12:46 Temperature 98 F Temperature Source Temporal Pulse Rate 72 72 Respiratory Rate 18 18 Respiratory Effort Respiratory Depth Respiratory Pattern Blood Pressure 155/69 H 155/69 H Blood Pressure Mean 97 97 Blood Pressure Source Blood Pressure Position Blood Pressure Location Pulse Ox 96 96 Oxygen Delivery Method Room Air Room Air Oxygen Flow Rate (L/min) 08/15/24 13:03 08/15/24 13:04 08/15/24 13:30 Temperature 98.3 F Temperature Source Oral Pulse Rate 83 69 Respiratory Rate 25 H 19 H Respiratory Effort Respiratory Depth Respiratory Pattern Blood Pressure 122/92 H 155/89 H Blood Pressure Mean 102 111 Blood Pressure Source Blood Pressure Position Blood Pressure Location Pulse Ox 97 98 99 Oxygen Delivery Method Room Air Oxygen Flow Rate (L/min) 08/15/24 14:21 08/15/24 14:30 08/15/24 15:00 Temperature Temperature Source Pulse Rate 69 67 71 Respiratory Rate 18 15 19 H Respiratory Effort Respiratory Depth Respiratory Pattern Blood Pressure 136/57 H 128/67 H 121/66 H Blood Pressure Mean 83 87 84 Blood Pressure Source Blood Pressure Position Blood Pressure Location Pulse Ox 100 99 99 Oxygen Delivery Method Room Air Room Air Oxygen Flow Rate (L/min) 08/15/24 16:00 08/15/24 16:00 08/15/24 17:20 Temperature 98.0 F Temperature Source Temporal Pulse Rate 68 Respiratory Rate 18 Respiratory Effort Normal Non-Labored Respiratory Depth Normal Respiratory Pattern Normal Blood Pressure 145/52 H Blood Pressure Mean 83 Blood Pressure Source Monitor Blood Pressure Position Semi-Fowlers Blood Pressure Location Left Arm Pulse Ox 98 99 Oxygen Delivery Method Room Air Room Air Room Air Oxygen Flow Rate (L/min) 08/15/24 20:00 08/15/24 21:09 08/15/24 22:00 Temperature 98.4 F Temperature Source Temporal Pulse Rate 72 Respiratory Rate 18 Respiratory Effort Normal Non-Labored Respiratory Depth Normal Respiratory Pattern Normal Blood Pressure 126/66 H Blood Pressure Mean 86 Blood Pressure Source Monitor Blood Pressure Position Semi-Fowlers Blood Pressure Location Left Arm Pulse Ox 98 98 Oxygen Delivery Method Room Air Room Air Room Air Oxygen Flow Rate (L/min) 08/16/24 03:42 08/16/24 08:42 08/16/24 09:40 Temperature 97.2 F L 98.2 F Temperature Source Oral Temporal Pulse Rate 64 83 Respiratory Rate 18 18 Respiratory Effort Respiratory Depth Respiratory Pattern Blood Pressure 118/53 L 122/64 H Blood Pressure Mean 74 83 Blood Pressure Source Monitor Monitor Blood Pressure Position Semi-Fowlers Semi-Fowlers Blood Pressure Location Left Arm Left Arm Pulse Ox 96 95 98 Oxygen Delivery Method Nasal Cannula Room Air Room Air Oxygen Flow Rate (L/min) 2 08/16/24 10:46 Temperature Temperature Source Pulse Rate Respiratory Rate Respiratory Effort Normal Non-Labored Respiratory Depth Normal Respiratory Pattern Normal Blood Pressure Blood Pressure Mean Blood Pressure Source Blood Pressure Position Blood Pressure Location Pulse Ox Oxygen Delivery Method Room Air Oxygen Flow Rate (L/min) Weight Weight: 85.4 kg Body Mass Index (BMI) 32.3 NIHSS NIHSS Nursing Documentation NIHSS Nursing Documentation: NIHSS: Ischemic Stroke/TIA Start: 08/15/24 14:57 Text: For PCU Patients: NIH and Neuro Check every 4 Status: Complete hours, PRN and with change in RN caregiver. Freq: [id number] Protocol: Activity Type Activity Date Activity User E-sign Co-sign Detail Recorded Client Recorded Date Recorded By Document 08/15/24 20:00 MB [id number] 08/15/24 20:32 MB 08/15/24 20:00 NIH Stroke Scale [NIHSS] A score of 0 is normal or asymptomatic . Total possible score is 42. Inpatient: RN or Physician to activate a stroke alert for onset of new stroke symptoms or with NIHSS increase >/= 3 points. Following change in neurological status, NIHSS will be performed per physician order or more frequently PRN. -1a. Level of Consciousness Alert; keenly responsive -1b. LOC Questions Answers BOTH questions correctly. -1c. LOC Commands Performs both tasks correctly . -2. Best Gaze Normal -3. Visual No visual loss -4. Facial Palsy Minor paralysis (flattened nasolabial fold , asymmetry on smiling) -5a. Left Arm No drift; arm holds 90 (or 45 ) degrees for full 10 seconds -5b. Right Arm No drift; arm holds 90 (or 45 ) degrees for full 10 seconds -6a. Left Leg No drift; leg holds 30-degree position for full 5 seconds -6b. Right Leg No drift; leg holds 30-degree position for full 5 seconds -7. Limb Ataxia Absent -8. Sensory Mild-to- moderate sensory loss; -9. Best Language No aphasia; normal -10. Dysarthria Normal -11. Extinction and Inattention No abnormality -Total 2 Query Text:A score of 0 is normal or asymptomatic. Total possible score is 42 . ED: Notify Physician for NIHSS increase by > / = 3 points. Inpatient: RN or Physician to activate a stroke alert for NIHSS increase of > / = 3 points. Coma Scale [Assess] -Eye Opening Spontaneous -Motor Obeys Commands -Verbal Oriented [Total] -Coma Scale Total 15 NIHSS 1a. Level of Consciousness: Alert; keenly responsive 1b. LOC Questions: Answers BOTH questions correctly. 1c. LOC Commands: Performs both tasks correctly. 2. Best Gaze: Normal 3. Visual: No visual loss 4. Facial Palsy: Normal symmetrical movements 5a. Left Arm: Drift; arm drifts downward but doesn?t hit the bed 5b. Right Arm: No drift; arm holds 90 (or 45) degrees for full 10 seconds 6a. Left Leg: No drift; leg holds 30-degree position for full 5 seconds 6b. Right Leg: No drift; leg holds 30-degree position for full 5 seconds 7. Limb Ataxia: Absent 8. Sensory: [id number] sensory loss; 9. Best Language: No aphasia; normal 10. Dysarthria: Normal 11. Extinction and Inattention: No abnormality Total: 2 Physical Exam Const alert, oriented x3 and no apparent distress General Appearance: cooperative, comfortable, well kempt and well developed HEENT normocephalic and head/scalp atraumatic Eyes EOMs intact bilaterally Resp normal respiratory effort Neuro Neuro Narrative: Awake, alert Speech is fluent, can name simple objects CN 2-12 intact Mild left upper extremity drift. Rest 5/5 Sensation: Decreased on left side No ataxia Lab / Micro Data 08/15/24 12:10 08/15/24 12:10 Labs: Laboratory Results - last 24 hr 08/15/24 12:10: WBC 7.3, RBC 4.09 L, Hgb 13.1, Hct 40.1, MCV 98.0, MCH 32.0, MCHC 32.7, RDW Std Deviation 49.4 H, RDW Coeff of Kenisha 13.5, Plt Count 309, MPV 11.2, Immature Gran % (Auto) 0.100, Neut % (Auto) 57.9, Lymph % (Auto) 25.1, [place] % (Auto) 7.1, Eos % (Auto) 8.3 H, Baso % (Auto) 1.5 H, Absolute Neuts (auto) 4.2, Absolute Lymphs (auto) 1.84, Nucleated RBC % 0, PT 12.9, INR 1.0, APTT 28.5, Sodium 141, Potassium 5.1, Chloride 107, Carbon Dioxide 23.3, Anion Gap 11, BUN 18, Creatinine 0.74, Estim Creat Clear Calc 60.49, Est GFR (MDRD) Non-Af 84, BUN/Creatinine Ratio 24.0 H, Glucose 90, Calcium 10.7, Troponin T High Sens 11 08/15/24 12:20: Hemoglobin A1c 5.4 L 08/15/24 13:23: Urine Color Yellow, Urine Clarity Clear, Urine pH 8.0, Ur Specific [place] 1.010, Urine Protein 15 H, Urine Glucose (UA) Normal, Urine Ketones Negative, Urine Occult Blood 10 H, Urine Nitrite Negative, Urine Bilirubin Negative, Urine Urobilinogen Normal, Ur Leukocyte Esterase 500 H, Urine RBC 0-5 SEEN, Urine WBC 10-25 SEEN, Ur Squamous Epith Cells 0 SEEN, Urine Bacteria 2+, Urine Mucus 0 SEEN 08/15/24 17:00: Troponin T Hi Sens 2 Hr 16 H, Troponin T Hi Sens 4Hr 16 H Micro: Microbiology 08/15/24 13:25 Urine, Catheterized Urine Culture - Preliminary Presumptive E. coli Imaging Radiology Impression Brain CT 08/15/24 12:34 IMPRESSION: Stable examination. No acute abnormality is seen. The referring physician Dr. Thompson was notified. One or more dose reduction techniques were used (e.g., Automated exposure control, adjustment of the mA and/or kV according to patient size, use of iterative reconstruction technique). Reading Location: [facility] Head/Neck CTA 08/15/24 12:35 IMPRESSION: RIGHT CAROTID: Unremarkable LEFT CAROTID: 60% narrowing at the origin of the right internal carotid artery due to plaque formation. VERTEBRALS: Unremarkable INTRACRANIAL: Unremarkable One or more dose reduction techniques were used (e.g., Automated exposure control, adjustment of the mA and/or kV according to patient size, use of iterative reconstruction technique). Reading Location: [facility] Chest X-Ray 08/15/24 13:35 IMPRESSION: No acute abnormality is seen. Reading Location: [facility] Brain MRI 08/15/24 14:56 IMPRESSION: 1. No evidence of an acute infarct, intracranial hemorrhage or extra-axial collection. 2.Sequela of prior large right MCA distribution infarct as described above. 3.Moderate chronic microvascular ischemic disease and involutional changes. Reading Location: [facility] Active Medications Active Medications Active Medications: Current Medications Generic Name Dose Route Start Last Admin Trade Name Freq PRN Reason Stop Dose Admin Acetaminophen 650 mg 08/15/24 14:56 08/15/24 21:23 Acetaminophen 325 Mg Tablet PO 650 mg Q4H PRN PRN Administration Pain 1-10 Or Fever>99.6 Ascorbic Acid 500 mg 08/15/24 22:00 08/16/24 10:51 Ascorbic Acid 500 Mg Tablet PO 500 mg BID ELIANA Administration Aspirin 81 mg 08/16/24 08:00 08/16/24 10:51 Aspirin E.C. 81 Mg Tablet PO 81 mg BREAKFAST ELIANA Administration Atorvastatin Calcium 40 mg 08/15/24 22:00 08/15/24 21:20 Atorvastatin Calcium 40 Mg Tablet PO 40 mg QHS ELIANA Administration Baclofen 5 mg 08/15/24 22:00 08/16/24 05:29 Baclofen 10 Mg Tablet PO 5 mg TID ELIANA Administration Carvedilol 12.5 mg 08/16/24 08:00 08/16/24 10:51 Carvedilol 12.5 Mg Tablet PO 12.5 mg BIDCM [facility] Administration Enoxaparin Sodium 40 mg 08/16/24 10:00 08/16/24 10:52 Enoxaparin 40 Mg/0.4 Ml Syringe SC 40 mg DAILY ELIANA Administration Gabapentin 300 mg 08/16/24 08:00 08/16/24 10:51 Gabapentin 600 Mg Tablet PO 300 mg BIDCM ELIANA Administration Guaifenesin 20 ml 08/15/24 15:01 Guaifenesin 10 Ml Udc (200mg/10ml) PO Q4H PRN PRN COUGH Hydralazine HCl 5 mg 08/15/24 14:56 Hydralazine 20 Mg/Ml Vial IV 08/16/24 14:57 Q30M PRN maintain BP parameters with HR <60 Hydromorphone HCl 2 mg 08/15/24 18:13 Hydromorphone 2 Mg Tablet PO Q6H PRN Pain Score 1-10 Ciprofloxacin 200 mg in 100 mls @ 100 mls/hr 08/15/24 22:00 08/16/24 12:14 Cipro IV Infused Q12 ELIANA Infusion Sodium Chloride 100 mls @ 15 mls/hr 08/15/24 16:26 IV .Q6H40M PRN Saline Flush Sodium Chloride 100 mls @ 15 mls/hr 08/15/24 16:26 IV .Q6H40M PRN Additional IVPB Infusion Labetalol HCl 20 mg 08/15/24 12:34 Labetalol 20mg/4ml Syringe IV 08/16/24 12:34 X1 PRN Blood Pressure Labetalol HCl 10 - 20 mg 08/15/24 14:56 Labetalol 20mg/4ml Syringe IV 08/16/24 14:57 Q10M PRN PRN maintain BP parameters with HR >/=60 Latanoprost 1 drp 08/15/24 22:00 08/15/24 21:17 Latanoprost 0.005% 1 Bottle EACH EYE 1 drp QHS ELIANA Administration Melatonin 3 mg 08/15/24 15:01 Melatonin 3 Mg Tablet PO QHS PRN PRN INSOMNIA Menthol 1 applic 08/16/24 04:40 08/16/24 06:05 Menthol 226.8 Gm Jar TOPICAL 1 applic 4X/DAY PRN PRN Administration arthritis Multivitamins/Minerals 1 tablet 08/16/24 08:00 08/16/24 10:51 Multivitamins,Ther W-Minerals Tablet PO 1 tablet DAILYCM ELIANA Administration Ondansetron HCl 4 mg 08/15/24 15:01 Ondansetron 4 Mg/2 Ml Vial IV Q8H PRN PRN NAUSEA/VOMITING Pantoprazole Sodium 20 mg 08/16/24 10:00 08/16/24 10:51 Pantoprazole Sodium 20 Mg Tablet PO 20 mg DAILY ELIANA Administration Senna/Docusate Sodium 2 tablet 08/15/24 15:01 Senna/Docusate Sodium 1 Tablet PO BID PRN PRN Constipation Sodium Chloride 10 - 40 ml 08/15/24 16:26 08/15/24 21:14 0.9% Saline Lock 10 Ml Syringe IV 10 ml UD PRN Administration SALINE FLUSH Sodium Chloride 2 spray 08/15/24 18:46 08/16/24 06:05 Sodium Chloride 0.65% 1 [place].Btl NASAL 2 spray TID PRN PRN Administration NASAL DRYNESS
[2024-08-16] MEDS: Acetaminophen 325 MG Tablet 650 MG PO (12:54)
--- NOTE | 2024-08-16 14:11 | CASEMGMT ---
SW did not complete a PHQ 9 as patient did not have a Stroke or TIA. Myah TUBBS
--- NOTE | 2024-08-16 15:04 | CASEMGMT ---
Met with patient to complete BARGER form. BARGER form explained to patient who voiced understanding and signed form. Original form placed in pt?s chart and copy provided to patient. Ofelia Quarles, Discharge Planning Asst
--- NOTE | 2024-08-16 15:16 | PCM.DC.SUM ---
Providers Date of Admission: 08/15/24 Date of Discharge: 08/16/24 Primary Care Physician: Dr. Bo Nicholas MD Consultations 08/15/24 14:57 Consult: Tele-Neurology Routine Consulting Provider: [facility] Reason for Consult: Acute Ischemic Stroke/TIA EMERGENT Consult: No MD Notified: Yes Date Notified: 08/15/24 Time Notified: 15:21 Method of Notification: Answering Service Nursing Unit Staff Notify [facility] of Tele-Neurology Consult: Yes Reason For Visit: UTI, TIA Diagnosis Discharge Diagnosis (1) Abnormal urinalysis: Status: Acute Code(s): R82.90 - Unspecified abnormal findings in urine (2) Altered mental status: Status: Acute Code(s): R41.82 - Altered mental status, unspecified (3) Left hemiparesis: Status: Chronic Code(s): G81.94 - Hemiplegia, unspecified affecting left nondominant side Medications at Discharge Home Medications latanoprost 0.005 % eye drops 1 drp EACH EYE QHS Eye drops 08/10/14 omeprazole 20 mg capsule,delayed release 20 mg PO DAILY GERD 08/30/20 alendronate 70 mg tablet 70 mg PO CHONG Bone health 07/06/23 aspirin 81 mg tablet,delayed release 81 mg PO BREAKFAST heart health #0 tabs 07/29/23 nitroglycerin 0.4 mg sublingual tablet 0.4 mg sublingual Q5M PRN Cardiac/Chest Pain #0 tabs 07/29/23 ascorbic acid (vitamin C) 500 mg tablet (Vitamin C) 500 mg PO BID 01/01/24 losartan 50 mg tablet 50 mg PO .COMPLEX blood pressure 01/01/24 Held on 08/16/24. Instructions: Resume on 08/22/24. Please discuss with PCP prior to restarting. carvedilol 12.5 mg tablet 12.5 mg PO BIDCM Hypertension 01/04/24 atorvastatin 40 mg tablet 40 mg PO DAILY cholesterol 04/21/24 d-mannose 500 mg capsule 500 mg PO BID 04/21/24 srbtfltj-rllv-zvax 8 mg-folic 400 mcg-K 50 mcg-lutein 300 mcg tablet (Century Women 50 Plus) 1 tab PO DAILY 04/21/24 meclizine 12.5 mg tablet 12.5 mg PO TID PRN PRN Dizziness #10 tabs 04/27/24 baclofen 5 mg tablet 5 mg PO TID 05/20/24 hydromorphone 2 mg tablet 2 mg PO Q6H PRN pain 05/20/24 spironolactone 25 mg tablet 25 mg PO DAILY 06/23/24 Held on 08/16/24. Instructions: Resume on 08/22/24. Please discuss with PCP prior to restarting. magnesium aspart,citrate,oxide mg PO 08/15/24 gabapentin 600 mg tablet 300 mg (1/2 x 600 mg) PO BID 30 days #0 tabs 08/16/24 nitrofurantoin monohydrate/macrocrystals 100 mg capsule (Macrobid) 100 mg PO BID 4 days #8 caps 08/16/24 Hospital Course Operations None Procedures EKG, Transthoracic echo and - (MRI brain, chest x-ray, CTA head/neck, CT brain) Summary of Care Provided Minutes Spent on Discharge: 35 Hospital Course: Patient is a 73-year-old female who presented to [facility] ED on 08/15/2024 with confusion and concern for worsened left-sided deficits. Short hospital course is notable low. Patient discharged home in stable condition on 08/16. 1. Worsened left-sided weakness with left-sided facial droop, CVA ruled out ? Neurology followed. Initial NIHSS score of 5, improved to [address] brain unremarkable. CTA head/neck with mild to moderate left ICA stenosis, otherwise unremarkable. MRI brain with no acute infarct, only sequela of prior large MCA distribution infarct noted. Patient improved back to baseline by hospital day 2. Neurology suspected that patient had stroke recrudescence and encephalopathy from her UTI. Stable for discharge home on 08/16. Continue home aspirin and statin. 2. Acute cystitis ? UA infectious appearing on admit. Urine culture with present of E. coli on discharge and notably patient had pansensitive E. coli growth on urine culture and 05/2024. Treated with IV ceftriaxone while inpatient, okay to treat with Macrobid on discharge to complete 5-day course of antibiotics total. Chronic medical conditions: ? Class I obesity with SHAREE: BMI 32 on admit. Complicated hospital course, care and prognosis. Continue CPAP on discharge. ? History of CVA with left-sided deficits, hypertension, hyperlipidemia: Continue home aspirin, statin, and Coreg. Blood pressures low normal while inpatient, held home losartan and spironolactone on discharge and recommended close outpatient follow-up with PCP prior to restarting these. ? Carotid artery stenosis: CTA head/neck showed mild to moderate left ICA stenosis with maximum stenosis of 60%. No inpatient needs, continue outpatient follow-up. ? Chronic HFrEF: Echo on 08/15 showed EF 30% with severe global hypokinesis of the LV but importantly is stable from prior echo in 05/2024. Medication management as above. ? Glaucoma: Continue home eyedrops. ? GERD: Continue home PPI. ? Chronic pain/osteoarthritis: Continue home baclofen, gabapentin and p.o. Dilaudid as needed. ? Osteoporosis: Continue home meds. Total clinical time spent by myself addressing the patient's medical issues, reviewing all the data, and collaborating with patient's care team: 35 minutes. Physical Exam Const alert, oriented x3, no apparent distress and well nourished; Negative for average body habitus or healthy appearing Constitutional Narrative: Older, obese, white female, sitting to the bed, at bedside, patient appears comfortable, nontoxic General Appearance: cooperative HEENT normocephalic, head/scalp atraumatic, hearing grossly normal bilaterally and moist oral mucous membranes Eyes EOMs intact bilaterally and conjunctivae normal Eyes Narrative: No scleral icterus Neck supple and no carotid bruits Neck Narrative: Trachea midline, no thyroid enlargement Resp normal respiratory effort, no retractions, no use of accessory muscles and clear to auscultation bilaterally Auscultation: Negative for rales, rhonchi or wheezes Cardio regular rate, regular rhythm, S1 normal heart sound, S2 normal heart sound, no murmurs, no rub, no gallops and no clicks GI normal to inspection, nondistended, normoactive bowel sounds, soft to palpation and non-tender Extremity no clubbing, cyanosis or edema Extremity Narrative: Pedal pulses are 2+, radial pulses are 2+ Skin skin turgor normal, no jaundice, no petechiae and no mottling Neuro oriented x3, CN's II-XII intact bilaterally, moves all extremities and No no focal motor deficits Neuro Narrative: Slight left pronator drift, mild left lower extremity weakness present, cranial nerves were intact. Stable. Speech: speech normal Psych affect normal Psych Narrative: Extremely pleasant, interacts appropriately, eye contact is good Weight / BMI Weight Weight: 85.4 kg Body Mass Index (BMI) 32.3 ABG / Lab / Microbiology Data 08/15/24 12:10 08/15/24 12:10 Laboratory: Laboratory Results - last 24 hr 08/15/24 12:20: Hemoglobin A1c 5.4 L 08/15/24 17:00: Troponin T Hi Sens 2 Hr 16 H, Troponin T Hi Sens 4Hr 16 H Microbiology: Microbiology 08/15/24 13:25 Urine, Catheterized Urine Culture - Preliminary Presumptive E. coli Radiography Diagnostic Testing: Radiology Impression Brain MRI 08/15/24 14:56 IMPRESSION: 1. No evidence of an acute infarct, intracranial hemorrhage or extra-axial collection. 2.Sequela of prior large right MCA distribution infarct as described above. 3.Moderate chronic microvascular ischemic disease and involutional changes. Reading Location: ON [facility] OF [facility] Echocardiogram 08/15/24 18:26 Interpretation Summary Mildly dilated left ventricle. The estimated ejection fraction is 30 %. There is severe global hypokinesis of the left ventricle. Mild (1+) mitral valve insufficiency. Ordering Physician: Gloria Laguna Performed By: Adam Stafford RCS D/C Instructions DC O2, CPAP, BIPAP Needs Home O2 Discharge instructions: No Meaningful Use Info Meaningful Use Meaningful Use Diagnoses (Choose all that apply): None applicable Ischemic Stroke Statin Dosing Therapy Reference: STATIN DOSE THERAPY REFERENCE: * Patients > 75 years receive moderate or high dose statin therapy. * Patients 75 years or YOUNGER should receive HIGH intensity statin dose unless contraindicated. You will be required to document reason for non-treatment if statin daily dose does not meet guidelines. HIGH DOSE STATIN THERAPY DAILY Atorvastatin > than or = to 40 mg Rosuvastatin > than or = to 20 mg Amlodipine + Atorvastatin > than or = to 2.5/40 mg Ezetimibe + Simvastatin 10/80 mg Simvastatin 80mg Discharge Plan Admission Admit Date/Time: 08/15/24 15:00 Primary Reason for Your Visit: Confusion and concern for stroke Attending Provider: Geovanny Avery Primary Care Provider: Bo Nicholas Consulting Providers: Percy Lugo; Lauryn Garcia; Lyssa Cristobal; Yaz Peterson; Sherlyn Omer; Doug Montes; Maddi Cosby; Ralph Wallace; Aleksey Dover; Hussein Matthew; Tana Bass; Bret Rosales; Natalya Torres; Cory Rivera; Jacobo Villaseñor; Janes James; Sahara Burns; Max Alfredo; Allison Laguna; Laci Marie; Gloria Laguna Instructions Additional Instructions / Restrictions: Your blood pressure was low normal while here despite holding home losartan and spironolactone. Please continue to hold these 2 medications and do not restart until discussing further with your PCP. Continue all other home medications as normal. Please take 4 more days of Macrobid to complete a 5-day course of antibiotics total for your UTI. Discharge Orders/Prescriptions Prescriptions: New nitrofurantoin monohyd/m-cryst [Macrobid] 100 mg capsule 100 mg PO BID 4 Days Qty: 8 0RF Continued omeprazole 20 mg capsule,delayed release(DR/EC) 20 mg PO DAILY carvedilol 12.5 mg tablet 12.5 mg PO BIDCM baclofen 5 mg tablet 5 mg PO TID hydromorphone 2 mg tablet 2 mg PO Q6H PRN (Reason: pain) latanoprost 1 DROP bottle 1 drp EACH EYE QHS Patient Comments: GLAUCOMA alendronate 70 mg tablet 70 mg PO CHONG aspirin 81 mg Tablet,Delayed Release (Dr/Ec) 81 mg PO BREAKFAST Qty: 0 0RF nitroglycerin 0.4 mg Tablet, Sublingual 0.4 mg sublingual Q5M PRN (Reason: Cardiac/Chest Pain) Qty: 0 0RF Century Women 50 Plus 8 mg iron-400 mcg-50 mcg tablet 1 tab PO DAILY d-mannose 500 mg capsule 500 mg PO BID atorvastatin 40 mg tablet 40 mg PO DAILY meclizine 12.5 mg Tablet 12.5 mg PO TID PRN PRN (Reason: Dizziness) Qty: 10 0RF ascorbic acid (vitamin C) [Vitamin C] 500 mg tablet 500 mg PO BID magnesium aspart,citrate,oxide 400 mg magnesium capsule PO Changed gabapentin 600 mg tablet 300 mg PO BID 30 Days Qty: 0 0RF Patient Comments: takes 300mg BID Held losartan 50 mg tablet 50 mg PO .COMPLEX Hold Instructions: Resume on 08/22/24. Please discuss with PCP prior to restarting. Rx Instructions: 50 mg orally twice daily spironolactone 25 mg tablet 25 mg PO DAILY Hold Instructions: Resume on 08/22/24. Please discuss with PCP prior to restarting. Referrals / Follow Up: Bo Nicholas MD [Primary Care Provider] - 08/22/24 3:40 pm Disposition Disposition (needs filled in before D/C Order can be placed): Home, Self Care Charges/Coding Visit Charges Inpatient E&M: 99456 Disch Hosp >30min
[2024-08-16 15:39] VITALS: BP 120/55; BP 122/55; PULSE 78; PULSE 79; RESP 16; RESP 18; TEMP 36.6; TEMP 36.9; O2SAT 97; O2SAT 98
--- NOTE | 2024-08-16 16:06 | CASEMGMT ---
BELEN ASIF obtained order from hospitalist for OP therapy. Provided pt with a copy of order. Placed original order in patient file.
== END 2024-08-16 15:22 | disposition home or self-care (01) ==
LOC: ED 14:25 → PCU 16:03
PROVIDERS: Admitting Provider Internal Medicine; Emergency Provider Emergency Medicine; PCP Family Medicine; Visit Provider Hospitalist
DX: R29.810 Facial weakness (principal); I69.354 Hemiplegia and hemiparesis following cerebral infarction affecting left non-dominant side; I11.0 Hypertensive heart disease with heart failure; I50.22 Chronic systolic (congestive) heart failure; M48.02 Spinal stenosis, cervical region; I44.7 Left bundle-branch block, unspecified; G47.33 Obstructive sleep apnea (adult) (pediatric); Z79.82 Long term (current) use of aspirin; H40.9 Unspecified glaucoma; N30.00 Acute cystitis without hematuria; E66.811 Obesity, class 1; E78.5 Hyperlipidemia, unspecified; B96.20 Unspecified Escherichia coli [E. coli] as the cause of diseases classified elsewhere; Z68.32 Body mass index [BMI] 32.0-32.9, adult; K21.9 Gastro-esophageal reflux disease without esophagitis; I25.10 Atherosclerotic heart disease of native coronary artery without angina pectoris; G89.29 Other chronic pain; Z79.899 Other long term (current) drug therapy; M81.0 Age-related osteoporosis without current pathological fracture
CPT/HCPCS: 36415; 70450; 70496; 70498; 70551; 71045; 80048; 81001; 83036; 84484; 85025; 85610; 85730; 87086; 87088; 87186; 92610; 93005; 93306; 94668; 94762; 96365; 96366; 96372; 97162; 97166; 97802; 99221; 99285; Q9957; Q9967; A4216; C8929; G0378; J0744

== ENCOUNTER → 2024-09-29 | Outpatient (CLI) | payer MEDICARE, SELFPAY ==
--- NOTE | 2024-09-29 15:16 | MRI_ITS ---
PROCEDURE: SPINE THORACIC (ROUTINE) 09/29/2024 REASON FOR EXAM: SPONDYLOSIS TECHNIQUE: Noncontrast thoracic spine MRI. Multiplanar and multisequence images were obtained. FINDINGS: Vertebrae: Chronic moderate wedge compression fracture of the T10 vertebral body treated with vertebroplasty with 5 mm retropulsion into the spinal canal producing moderate spinal stenosis with abutment of the central spinal cord. No acute compression fracture. Bone marrow signal is unremarkable. Alignment: Normal. No spondylolisthesis. Spinal Cord: Thoracic spinal cord is of normal size and signal intensities. No thoracic spinal cord lesions are identified. Disc spaces: Unremarkable. Paraspinal Tissues: Unremarkable. MRI/Spine Thoracic (Routine) IMPRESSION: Chronic moderate wedge compression fracture of the T10 vertebral body treated w ith a vertebroplasty with 5 mm of retropulsion into the spinal canal producing moderate spinal stenosis with abutment of the c entral spinal cord but no pritesh cord compression. Reading Location: [id number]
== END | disposition home or self-care (01) ==
LOC: MRI 15:03
PROVIDERS: PCP Family Medicine; Referring Provider Anesthesiology; Visit Provider Anesthesiology
DX: M47.814 Spondylosis without myelopathy or radiculopathy, thoracic region (principal)
CPT/HCPCS: 72146

== ENCOUNTER 2024-10-27 13:30 | Outpatient (RCR) | payer MEDICARE, SELFPAY ==
--- NOTE | 2024-09-13 11:52 | HP.PTEVAL_ITS ---
Patient's Visit Information Visit Information Visit Information: GILBERTO CAMPBELL is a 73 year old F referred to Physical Therapy by Dr. Bo Nicholas MD with a diagnosis of CVA, weakness.. Date of Evaluation: 09/13/24 Physical Therapist: Bo Corley, DPT, OCS, CSCS Visit Plan Frequency: 2x /Week Duration: 3 Months Plan: 2x/week for 4 up to 12 weeks... 1. Teach and progress HEP for posture(pulls), LE standing ex, balance(weight shifts) and core mat and stand, and get doing at home LOWELL with safety. 2. Work on gait in clinic with cane and balance with movement, steps, transfers. Work on distance, posture and less AD I. Subjective Subjective: Had stroke adn therapy last year. Finished in Feb 2024. Had vertigo in adn fell using cane and cracked t10 vertebrae and tailbone. Walker since that fall. Is here today after hospital stay thinking stroke but catscan adn MRI showed no new stroke. Symptoms were difficult to awaken and drowsiness. Difficult to arouse. No lingering effects from that cogintively or mobility araujo. Wants better balance and strength. Was doing well before fall last April. Now uses wh walker. Lives with Brendon in two story and finished basement. Bedroom is on main floor, does nto use steps except garage with railing and does well. Brendon carries walker down. Dresses self except for bra which needs help. bathroom I. shower is helped by into adn out of shower with bars in walk in shower. Spends day talking with friends on phone. Also TV, Grandkids visit and they play cards. Regular ex: core in chair.Leg movements in chair. Walks around counters. Hobbies: not since stroke. Cannot cross stitch anymore due to hand eye coordination. Not employed. Objective Objective: Walks in with wh walker 200 feet slow with slight L neglect on people on the left side but mod I. With cane 100 feet Slow but SBA. Walking without AD with CGA slow and hunched over 50 feet. Transfers require UE from chair due to weakness. Bed trasnfer is very slow and labored but not painful and I. Weakness evident in the core. Steps require two rails and l stronger than R. sensation LE WNL to gross light touch except left lateral leg diminiished. reflexes 1/3 B patella dn achilles Strength hips 3/5 with obvious femoral and core instability requiring UE to stabilize in sitting. knees 3+/5, ankles 4-/5 B. coordination to reciprocal to e tap is mild deficits. Posture is hunched Fw upons standing but can correct with VC for short time. Balance/Special Test Scores Functional Gait Assessment Score: 19 % Disability: 36.6700 Lower Extremity Functional Score: 18 TUG Test Time Seconds: 25 30 Second Chair Rise Test Seconds: 8 Goals Goal 1:: I appropriate HEP to limit future problems (strenght, balance/weight shift and gait) Goal Time Frame: 8-12 Weeks Goal 2:: Walk with cane around clinic for 30 minute session mod I Goal Time Frame: 8-12 Weeks Goal 3:: sit to stand from chair without UE usage Goal Time Frame: 8-12 Weeks Goal 4:: 12 on 30 SSTS and 22 on FGA Goal Time Frame: 4-6 Weeks Goal 5:: 35 LEFS score Goal Time Frame: 8-12 Weeks Rehabilitation Potential Physical Therapy Diagnosis: Unsteady and weak after sedentary period and hobbies limiting safe mobility options. Rehabilitation Potential: Fair Anticipated Interventions Patient/Client Instruction: Educate patient on: Condition and Plan of Care For the Purpose of:: To increase ROM, To improve nutrient delivery to tissue, To increase tolerance to activity/condition/position, To improve ability of p hysical actions for home/community/work/leisure, To improve gait and locomotor functions and To foster healthy habits Therapeutic Exercise to Include: Strength training, Balance training, Postural training, Gait and locomotor training, Active ROM and Dynamic Lumbar Stabilization For the Purpose of:: To decrease pain, To improve nutrient delivery to tissue, To improve muscle performance and motor function, To increase tolerance to activity/condition/position, To improve gait and locomotor functions, To improve health of tissue and To improve safety Functional Training to Include: Gait training For the Purpose of:: To improve gait and locomotor functions Text: Thank you for the opportunity to evaluate your patient. For Medicare and Medicare HMO plans, please review the plan of care and approve it. It will need to be FAXED BACK to us at [phone] for Medicare purposes. For Medicare only, by signing this I certify the plan of care. Please let me know if there are questions or concerns regarding this plan of care. Physician Signature: Date:
--- NOTE | 2024-09-13 13:26 | HP.OTEVAL_ITS ---
Patient's Visit Information Visit Information Visit Information: GILBERTO CAMPBELL is a 73 year old F, referred to Occupational Therapy by Dr. Bo Nicholas MD, with a diagnosis of Osteoporosis; hx CVA w/ LUE>LLE weakness. Date of Evaluation: 09/13/24 Occupational Therapist: Rachel Rollins Subjective Subjective: Pt reports episode of vertigo in 05/02 with subsequent fall and fracture of T10 vertebra. Pt since has had minor procedure and injections to manage the pain. Pt does report some numbness/tingling, which is chronic; pt reports 5/10 in tailbone; pt reports 3 falls/syncopal episodes; Per pt, lives with in home with 1st floor bedroom/bathroom with walk-in showers with grab bars, chair, and HHSH; pt has a ETS with grab bars; independent with all self-care and functional mobility with use of w/w; pt requires some assist for cleaning back/donning bra; pt does have a SPC but has progressed to the walker; pt able to complete light cooking/cleaning; pt reports she has not driven in over a year; spouse assists with all additional iADLs/shopping/errands/etc.; pt reports decreased endurance with standing/ambulation tasks Pain Low back/tailbone: Current Pain Intensity: 5 Objective Objective/Observation: Pt did demonstrate forward hunched posture with walker out in front of body during ambulation; pt also requires min verbal cues for proper hand placement with L hand on walker; ROM Shoulder: WFL Elbow: WFL Forearm: WFL Wrist: WFL Strength Shoulder: R flexion - 18.8; L flexion 20.2; R extension - L -24.8; extension - 20.3 Elbow: R flexion - 24.7; L flexion - 23.4; R extension - 15.6; L extension - 19.3 Fund Development Manager: R - 40#; L - 22# Lateral Pinch: R - 5#; L - 2# Tripod Pinch: R - 7#; L - 6# Sensation Sensation Comments: Pt does report mild numbness/tingling in L hand which is chronic x 1 year Visual/Perceptual Skills Visual Field Cut: Yes (limited Left lower quadrant) Left Neglect: No Copies Shapes Correctly: No Comments: Pt does report some difficulty with eye/hand coordination, but no new symptoms since last visit; Nine Hole Peg Right: 30 Left: 43 Quick DASH-Disab of Arm,Shoulder& Hand Quick DASH Score: 40.9075 Goals Goal:: Pt will increase L hand cutter operator strength by 5 lbs in order to improve daily tasks Pt will increase L hand pinch strength by 2 lbs in order to improve daily tasks Goal:: Pt will decrease time required to complete 9-hole-peg test by 10 seconds for increased participation with daily tasks Goal:: Pt will be able to don/doff jacket with zipper with set up assist and min verbal cues Goal:: Pt will improve modified dyspnea score to 3/10 for improvement in completion of morning routine Goal:: Pt will complete 3/5 trials of nose to finger test with LUE to improve dysmetria Pt will decrease Quick - DASH score by 10 points or more for improved overall use of LUE Rehabilitation General Assessment: This 73 year old female presents to OT with diagnosis of CVA and weakness; pt is demonstrating weakness of L hand cutter operator/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, decreased left hand coordination, impairment in dysmetria, as well as overall decreased aerobic capacity impacting pt ability to perform self-care tasks; pt would benefit from additional OT services 2x weekly for 6 weeks to address the above deficits Rehabilitation Potential: Good Anticipated Interventions Anticipated Interventions: Strengthening, Fine Motor Coord/Pal, Neuro Reeducation, Visual/Perceptual Skills, ADL Training and Home Program Visit Plan Frequency: 2x /Week Duration: 6 Weeks General Plan: LUE cutter operator/pinch strength and increased coordination; increased endurance with standing/ambulation tasks for participation and safety with self- care and iADL tasks; TEXT: Thank you for the opportunity to evaluate your patient. For Medicare and Medicare HMO plans, please review the plan of care and approve it. It will need to be FAXED BACK to us at [phone] for Medicare purposes. Please let me know if there are questions or concerns regarding this plan of care. Physician Signature: Date:
--- NOTE | 2024-10-27 13:57 | HP.OTDCSUM_ITS ---
Discharge Summary D/C Summary: It has been my pleasure to treat GILBERTO CAMPBELL under orders from Dr. Bo Nicholas MD, for the diagnosis of Osteoporosis; hx CVA w/ LUE>LLE weakness for a total of 12 visit(s). Please see the following information for a summary of their discharge status. Overall Improvement % Improvement: 80 Objective Objective/Function: chief physical therapist strength right 40# same as eval chief physical therapist strength left 30# increase from 22# lateral pinch left 16# increase from 2# lateral pinch left 10# increase from 5# pt demo increase in bilateral chief physical therapist strength and pinch strength. pt demo Goals Patient Goals: Regain Mobility, Regain Strength, Decrease Pain, Use Hand/Wrist/Arm Normally Again, Be More Independent in ADLS, Improve Visual/Perceptual Skills, Improve Sitting Balance, Improve Transfer Skills and Resume Former Household Responsibilities (Cooking,Cleaning,Yard, etc.) Other: Pt would like to increase ability to prepare foods, fill medication cups, sit to stand transfer from [facility], ambulate functional distances with increased endurance, and increase standing tolerance for ADL/iADL tasks Goal:: Pt will increase L hand chief physical therapist strength by 5 lbs in order to improve daily tasks ( goal met) Pt will increase L hand pinch strength by 2 lbs in order to improve daily tasks ( goal met) Goal:: Pt will decrease time required to complete 9-hole-peg test by 10 seconds for increased participation with daily tasks Goal:: Pt will be able to don/doff jacket with zipper with set up assist and min verbal cues Goal:: Pt will improve modified dyspnea score to 3/10 for improvement in completion of morning routine Goal:: Pt will complete 3/5 trials of nose to finger test with LUE to improve dysmetria (goal met) Pt will decrease Quick - DASH score by 10 points or more for improved overall use of LUE Plan Plan: d/c with HEP D/C Information Discharge Comments: pt made gains with strength of bilateral hands- pts vison will decrease pts ind with buttons/ zippers and pt is aware. pt to cont. with HEP and agrees to POC. d/c sentence: If there are questions or concerns regarding this patient's occupational therapy, please fell free to call me at [phone]. Thank you for the referral of this patient. Sincerely, Aranza Wall, OTR/L, CHT
== END 2024-10-27 19:00 | disposition home or self-care (01) ==
LOC: OT 13:30
PROVIDERS: PCP Family Medicine; Referring Provider Family Medicine; Visit Provider Family Medicine
DX: M81.0 Age-related osteoporosis without current pathological fracture (principal); Z86.73 Personal history of transient ischemic attack (TIA), and cerebral infarction without residual deficits; R29.898 Other symptoms and signs involving the musculoskeletal system
CPT/HCPCS: 97110; 97162; 97166; 97530

== ENCOUNTER → 2024-11-14 | Outpatient (CLI) | payer MEDICARE, SELFPAY ==
--- NOTE | 2024-11-14 13:15 | CDU_ITS ---
Reason For Study Reason For Study: HX CVA Rt. Velocities/BP Lt. Velocities/BP Prox CCA 50.0/6.4 cm/sec. Prox CCA 65.7/17.7 cm/sec. Mid CCA 50.9/9.9 cm/sec. Mid CCA 55.2/16.8 cm/sec. Dist CCA 43.9/8.1 cm/sec. Dist CCA 54.3/16.0 cm/sec. Prox ICA 59.3/11.4 cm/sec. Prox ICA 50.7/16.3 cm/sec. Mid ICA 58.9/19.2 cm/sec. Mid ICA 56.0/20.1 cm/sec. Dist ICA 50.5/15.2 cm/sec. Dist ICA 65.3/21.9 cm/sec. Rt. ICA/CCA = 1.2. Lt. ICA/CCA = 1.2. Prox ECA 98.6/9.0 cm/sec. Prox ECA 108.4/9.0 cm/sec. Rt. Vert. 32.2/8.0 cm/sec. Lt. Vert. 35.2/10.7 cm/sec. Right Extracranial There is intimal thickening but no significant atherosclerotic plaque noted in the right common carotid artery. There is heterogeneous, irregular atherosclerotic plaque noted in the right internal carotid artery. HX CEA. There is intimal thickening but no significant atherosclerotic plaque noted in the right external carotid artery. Antegrade flow is noted in the right vertebral artery. Left Extracranial There is intimal thickening but no significant atherosclerotic plaque noted in the left common carotid artery. There is heterogeneous, irregular atherosclerotic plaque noted in the left internal carotid artery. There is heterogeneous, irregular atherosclerotic plaque noted in the left external carotid artery. Antegrade flow is noted in the left vertebral artery. Procedure Carotid Duplex 89910. This is a Carotid Duplex examination using B-mode, color flow and specral Doppler. Exam performed in department. VL/Carotid Duplex Ultrasound Interpretation Summary Mild (<50%) stenosis right extracranial internal carotid. Mild (<50%) stenosis left extracranial internal carotid. Flow within the vertebral arteries is antegrade bilaterally. Ordering Physician: Alpesh Vargas Referring Physician: Bo Nicholas MD Performed By: Marielos Mejia RVT
== END | disposition home or self-care (01) ==
PROVIDERS: PCP Family Medicine; Referring Provider Surgery Vascular Surgery; Visit Provider Surgery Vascular Surgery
DX: I65.21 Occlusion and stenosis of right carotid artery (principal); I10 Essential (primary) hypertension; Z86.73 Personal history of transient ischemic attack (TIA), and cerebral infarction without residual deficits
CPT/HCPCS: 93880

== ENCOUNTER 2024-12-11 23:09 | Emergency (ER) | payer MEDICARE, SELFPAY ==
[2024-12-11 23:12] VITALS: BP 103/75; PULSE 70; RESP 16; TEMP 36.5; O2SAT 97; BMI 31.6
[2024-12-11 23:35] LABS: Hematocrit 38.6 % (37-47); Hemoglobin 13.0 g/dL (12.0-15.0); Immature Granulocytes Count 0.060 X10^3/uL (0.0-0.0); Mean Corp Hgb Conc 33.7 g/dL (32-36); Mean Corpuscular Volume 100.0 fL (81-99); Mean Platelet Vol. 10.8 fl (6.2-12.0); NRBC Flagged by Analyzer 0 % (0-5); Platelet Count 346 K/mm3 (150-450); RBC Distribution Width CV 12.5 % (11.6-14.6); RBC Distribution Width SD 45.8 fl (35.1-43.9); Red Blood Count 3.86 M/mm3 (4.2-5.4); White Blood Count 13.2 K/mm3 (4.4-11.0)
[2024-12-11] MEDS: 0.9% Normal Saline (1000mL) 1,000 ML 999 ML IV (23:43)
[2024-12-12 00:10] VITALS: BP 122/52; PULSE 76; RESP 11; O2SAT 100
[2024-12-12 00:19] LABS: Magnesium 2.0 mg/dL (1.5-2.2)
[2024-12-12 00:59] VITALS: BP 113/81; PULSE 73; RESP 16
[2024-12-12 02:00] VITALS: BP 130/66; PULSE 73; RESP 16; TEMP 36.5; O2SAT 100
== END 2024-12-12 02:12 | disposition home or self-care (01) ==
PROVIDERS: Emergency Provider Emergency Medicine; PCP Family Medicine; Visit Provider Emergency Medicine
DX: R55 Syncope and collapse (principal); I11.0 Hypertensive heart disease with heart failure; F33.1 Major depressive disorder, recurrent, moderate; E86.0 Dehydration; E78.5 Hyperlipidemia, unspecified; I25.2 Old myocardial infarction; H40.9 Unspecified glaucoma; K21.9 Gastro-esophageal reflux disease without esophagitis; M81.0 Age-related osteoporosis without current pathological fracture; I25.10 Atherosclerotic heart disease of native coronary artery without angina pectoris; Z85.3 Personal history of malignant neoplasm of breast; Z90.11 Acquired absence of right breast and nipple; Z86.73 Personal history of transient ischemic attack (TIA), and cerebral infarction without residual deficits; Z79.82 Long term (current) use of aspirin; Z79.899 Other long term (current) drug therapy
CPT/HCPCS: 70450; 80053; 83735; 85025; 93005; 96361; 96374; 99285; A4216; J2405

== ENCOUNTER → 2025-04-12 | Outpatient (CLI) | payer MEDICARE, SELFPAY ==
--- NOTE | 2025-04-12 12:26 | MRI_ITS ---
PROCEDURE: SPINE LUMBAR (ROUTINE) 04/12/2025 REASON FOR EXAM: LUMBAR RADICULOPATHY TECHNIQUE: Procedure Code: MRISPL Modality: MR Procedure: SPINE LUMBAR (ROUTINE) COMPARISON: L1 spine x-ray data [id number]. FINDINGS: Vertebrae: Status post kyphoplasty on T10 the vertebral bodies are preserved in height and signal. Alignment: Anterolisthesis L4 on L5 by 3 mm. Conus Medullaris: Unremarkable. T12-L1: Disc bulge. Disc desiccation. Facet joint arthropathy. No significant foraminal or canal stenosis. L1-2: Disc bulge. Disc desiccation. Facet joint arthropathy. Severe bilateral foramina stenosis. Severe canal stenosis. L2-3: Disc desiccation. Disc bulge. Facet joint arthropathy and ligamentum flavum hypertrophy. Mild inferior bilateral foramina stenosis. Moderate canal stenosis. L3-4: Disc desiccation. Disc bulge. Facet joint arthropathy. Ligamentum flavum hypertrophy. Moderate bilateral foramina stenosis. Moderate canal stenosis. L4-5: Uncovered disc bulge. Facet joint arthropathy. Ligamentum flavum hypertrophy. Moderate bilateral foramina stenosis. Severe canal stenosis. L5-S1: Disc bulge. Disc desiccation. Facet joints arthropathy. Moderate bilateral foramina stenosis with abutment upon the exiting bilateral L5 nerves. No significant canal stenosis. Sacrum: Unremarkable. A 4 cm simple cyst at the midpole of the right kidney. MRI/Spine Lumbar (Routine) IMPRESSION: Degenerate changes predominantly for severe canal stenosis at L1-L2 and L4-L5. Severe bilateral foramina stenosis at L1-L2. Moderate bilateral foramina stenosis at L4-L5 and L5-S1. Moderate canal stenosis at L2-L3 and L3-L4. Reading Location: [facility]
== END | disposition home or self-care (01) ==
LOC: OPMRI 12:22
PROVIDERS: PCP Family Medicine; Referring Provider Anesthesiology; Visit Provider Anesthesiology
DX: M54.16 Radiculopathy, lumbar region (principal)
CPT/HCPCS: 72148